=== PATIENT | male | born 1950 | race Caucasian/White ===

== ENCOUNTER 2023-03-25 18:05 | Inpatient (IN) | payer MEDICARE, SELFPAY ==
[2023-03-25] VITALS (12 sets, daily range): BP systolic 115–175; BP diastolic 69–91; PULSE 84–127; RESP 16–28; TEMP 37.1–39.1; O2SAT 96–100; BMI 21.7; BMI 22.8
--- NOTE | 2023-03-25 18:24 | ECG_ITS ---
The [facility] Test Date: 2023-03-25 Pat Name: Farhan Naidu Department: Room: - Gender: Male Gambling Monitor: : 1950 Requested By: SUE JONES Order Number: [id number] Reading MD: REMINGTON MONAHAN Measurements Intervals [place] Rate: 117 P: 90 NV: 148 QRS: 81 QRSD: 78 T: 79 QT: 304 QTc: 374 Interpretive Statements 1108 Marked sinus arrhythmia 1120 Sinus tachycardia 4068 Nonspecific Twave abnormality 9140 abnormal rhythm ECG No previous ECG available for comparison Electronically Signed On 03-26-2023 5:42:35 EDT by REMINGTON MONAHAN
--- NOTE | 2023-03-25 18:36 | XR_ITS ---
[address] [address] Patient Name: ARISTIDES LASSITER MRN: [id number] date: 1950 Sex: M Assigned Patient Location: ER Current Patient Location: ER Accession/Order Number: [id number] Exam Date: 03/25/2023 18:35 Report Date: 03/25/2023 19:37 At the request of: TAWANDA GIANG Procedure: XR chest 1V EXAM: XR chest 1V HISTORY: sob COMPARISON: 10/21/2022 TECHNIQUE: Frontal view of the chest. FINDINGS: The lungs are hyperinflated compatible with COPD. The medial lung apices are excluded by the patient's chin. No focal consolidations or pleural effusions. Cardiac mediastinal silhouette is unremarkable. Thoracic spine spondylosis. IMPRESSION: No acute disease. COPD. Electronically authenticated by: MIC ESTEVEZ Date: 03/25/2023 19:37
--- NOTE | 2023-03-25 18:39 | XR_ITS ---
The [place] [address] Patient Name: ARISTIDES LASSITER MRN: [id number] date: 1950 Sex: M Assigned Patient Location: ER Current Patient Location: ER Accession/Order Number: [id number] Exam Date: 03/25/2023 18:35 Report Date: 03/25/2023 19:53 At the request of: TAWANDA GIANG Procedure: XR hand LT min 3V STUDY: XR hand LT min 3V, [id number] HISTORY: cat bite COMPARISON: None FINDINGS/IMPRESSION: Periarticular osseous erosive changes involving the ulnar aspect of the triquetrum as well as the heads of the first and third metacarpal. Differential includes rheumatoid arthritis, gout, and less likely multifocal septic arthritis/osteomyelitis. Small radiopaque foreign body in the soft tissues of the distal thumb. No acute fracture or dislocation. Electronically authenticated by: VIOLA ART Date: 03/25/2023 19:53
[2023-03-25] MEDS: IPRATROPIUM/ALBUTEROL SULFATE 3 ML AMPUL.NEB IH (18:53)
[2023-03-25] MEDS: 0.9 % SODIUM CHLORIDE 1,000 ML 999 ML IV (19:02)
[2023-03-25] MEDS: VANCOMYCIN HCL 1,000 MG in 0.9 % SODIUM CHLORIDE 250 ML 250 MG IV (19:03)
[2023-03-25 19:06] LABS: Basophils Percent Auto 0.3 % (0.2-2.0); Hematocrit 37.6 % (42.0-54.0); Hemoglobin 13.2 g/dL (14.0-18.0); Immature Granulocytes Abs Auto 0.01 10^3/uL (0.00-0.03); Immature Granulocytes Pct Auto 0.3 % (0.0-0.5); Lymphocytes Absolute Auto 0.2 10^3/uL (1.2-3.8); Lymphocytes Percent Auto 4.5 % (20.5-60.0); Mean Corpuscular HGB Conc 35.1 g/dL (29.9-35.2); Mean Corpuscular Hemoglobin 31.8 pg (25.9-34.0); Mean Corpuscular Volume 90.6 fL (80.0-94.0); Mean Platelet Volume 9.3 fL (9.5-13.5); Monocytes Percent Auto 0.6 % (1.7-12.0); Neutrophils Absolute Auto 3.3 10^3/uL (1.4-6.5); Neutrophils Percent Auto 94.3 % (43.0-75.0); Platelet Count 290 10^3/uL (150-450); Red Blood Count 4.15 10^6/uL (4.70-6.10); Red Cell Distribution Width 12.7 % (11.0-15.0); White Blood Count 3.5 10^3/uL (4.0-11.0)
[2023-03-25] MEDS: CLINDAMYCIN PHOSPHATE/D5W 900 MG/50 ML PIGGYBACK IV (19:09)
[2023-03-25 19:33] LABS: Alanine Aminotransferase 37 U/L (16-63); Albumin Globulin Ratio 0.9; Albumin Level 3.3 g/dL (3.4-5.0); Alkaline Phosphatase 81 U/L (46-116); Anion Gap 18.1; Aspartate Amino Transferase 43 U/L (15-37); BUN Creatinine Ratio 25.4; Bilirubin Total 0.9 mg/dL (0.2-1.0); Calcium 8.7 mg/dL (8.5-10.1); Carbon Dioxide 19.9 mmol/L (21.0-32.0); Chloride 104 mmol/L (98-107); Estimated GFR (African America >60 (>=60); Estimated GFR (Non-African Ame 58 (>=60); Globulin 3.8 g/dL; Glucose 97 mg/dL (74-106); Sodium 138 mmol/L (136-145); Total Protein 7.1 g/dL (6.4-8.2)
[2023-03-25 19:43] LABS: INR 1.04; Partial Thromboplastin Time 25.6 sec (22.3-36.2)
[2023-03-25] MEDS: WATER FOR IRRIGATION, STERILE 1,000 ML IRRIG.SOLN 1000 ML IRR (20:04)
[2023-03-25] MEDS: ACETAMINOPHEN 500 MG TABLET 1000 MG PO (20:04)
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
[2023-03-25 20:24] LABS: Lactate/Lactic Acid 1.5 mmol/L (0.4-2.0)
--- NOTE | 2023-03-25 20:43 | PC.NURSE ---
contacted pt's pharmacy and they were unable to verify if pt was taking his prescribed BP med, pt does not know this information
--- NOTE | 2023-03-25 21:21 | NUTR.NU ---
updated pt's cousin on phone re plan to admit, will send family phone numbers up with pt on admission
--- NOTE | 2023-03-25 21:44 | PC.NURSE ---
vitals updatedand pt belongings placed in pt belonging bag for admission
--- NOTE | 2023-03-25 22:32 | PC.NURSE ---
report complete with JENNA Kan on [place], pt transported with tele monitor and O2
--- NOTE | 2023-03-25 22:33 | W.PC.EDHO ---
Primary Language: Preferred Language: Description of Symptoms ED Triage Date of Onset of this AM Symptoms Sel[place] Coma Scale Selma coma scale total score 15 Triage Comment ED Triage Comment For the last couple hours pt has had increased SOB and weakness. States cleaned the house and fed the dogs and now tired and weak. Pt also got attacked by a cat yesterday on left hand and pt has dried blood noted with cat hair dried in wound and swelling. Pain Pain Description [Left Hand] Tightness,With Movement Pain Scale [Left Hand] 8 Pain Scale Used [Left Hand] Numeric (1 - 10) Pain Site Observation [Left area cleansed with hibi cleanse and saline with Hand] dressing on site Pain Frequency [Left Hand] Frequent IV Insertion/Site Date of IV Line Insertion [ 03/25/23 Single Lumen Right Forearm] IV Catheter Type [Single Lumen Saline Lock Right Forearm] IV Catheter Type [Single Lumen Saline Lock Left Antecubital] IV Catheter Gauge [Single 20 Lumen Right Forearm] IV Catheter Gauge [Single 20 Lumen Left Antecubital] Oxygen Administration Pulse Oximetry 97 Pulse Oximetry 96 Pulse Oximetry 97 Pulse Oximetry 97 Pulse Oximetry 97 Pulse Oximetry 99 Pulse Oximetry 99 Pulse Oximetry 100 Pulse Oximetry 98 Pulse Oximetry 100 Oxygen Delivery Method Nasal Cannula Oxygen Delivery Method Nasal Cannula Oxygen Delivery Method Room Air Oxygen Delivery Method Nasal Cannula Oxygen Delivery Method Nasal Cannula Oxygen Delivery Method Nasal Cannula Oxygen Delivery Method Nasal Cannula Oxygen Delivery Method Nasal Cannula Oxygen Delivery Method Nasal Cannula Oxygen Delivery Flow Rate 4 Oxygen Delivery Flow Rate 4 Oxygen Delivery Flow Rate 4 Oxygen Delivery Flow Rate 4 Oxygen Delivery Flow Rate 4 Oxygen Delivery Flow Rate 2 Oxygen Delivery Flow Rate 4 Oxygen Delivery Flow Rate 4 Oxygen Delivery Flow Rate 4 Oxygen Delivery Flow Rate 4 Cardiac Monitoring ECG Method 12 Lead
[2023-03-26] VITALS (22 sets, daily range): BP systolic 100–139; BP diastolic 54–69; PULSE 64–81; RESP 18–20; TEMP 36.2–36.8; O2SAT 93–100
--- NOTE | 2023-03-26 02:25 | CT_ITS ---
The [address] [address] Patient Name: ARISTIDES LASSITER MRN: [id number] date: 1950 Sex: M Assigned Patient Location: [place] Current Patient Location: [place] Accession/Order Number: [id number] Exam Date: 03/26/2023 08:15 Report Date: 03/26/2023 09:18 At the request of: TIERNEY IBARRA Procedure: CT hand LT wo/w con EXAMINATION: CT hand LT wo/w con HISTORY: left hand cat bite, foreign body ?, osteo ? COMPARISON: XR hand left 04/06/2023 TECHNIQUE: After obtaining the patient's consent, multi-planar CT images were created without and with non-ionic intravenous contrast material. Dose reduction techniques were achieved by using automated exposure control and/or adjustment of mA and/or kV according to patient size and/or use of iterative reconstruction technique. FINDINGS: BONES: Sclerotic and erosive degenerative changes involving the first, second, and third metatarsophalangeal joints, greatest involving the third digit where there is also anterior subluxation of the proximal phalanx in relation to the metacarpal head. SOFT TISSUES: Increased density and soft tissue swelling surrounding the second third metatarsophalangeal joints. EFFUSION: None visible. OTHER: Negative. IMPRESSION: 1. Findings may represent advanced osteoarthritic and inflammatory changes surrounding the first, second, and third metacarpophalangeal joints, greatest involving the third digit. However, given patient's history, infectious etiology such as cellulitis and osteomyelitis is favored. Electronically authenticated by: YEHUDA VARGAS Date: 03/26/2023 09:18
--- NOTE | 2023-03-26 02:29 | P.PN_ITS ---
Progress Note: Subjective Subjective Interval history: chief complaint: Fevers, left wrist cat bite wound HPI: 72-year-old male with history of COPD on oxygen, who presents with above chief complaint. He states yesterday his cat bit dorsum of left breast and today started developed fevers. He reports small wound with redness, pain and warmth. Reports range of motion of fingers is slightly limited due to pain. Otherwise denies any rigors, confusion, hand trauma, chest pain, abdominal pain, change in bowel urinary habits, denies tingling in his wrist. Upon arrival to the ER x-rays were obtained and pending, per ER staff that was now suggestion of deep infection. He received IV antibiotics hospital Medicine was consulted. Review of systems: All 14 review of systems negative except for HPI past medical history: COPD past surgical history: None per patient allergies: Penicillin (unknown) home medications: Reviewed and in chart social history: Denies alcohol, tobacco illicit drug use. Lives by himself independent physical exam: Vital stable see chart general: Lying in bed, no acute distress, alert and oriented to x3 HEENT: Normocephalic, atraumatic, EOMI, trachea midline CVS: Regular rate and rhythm, no edema lungs: Normal respiratory effort, bilateral air entry abdomen: Soft, nontender, no visible masses neuro: No focal deficits skin: Left breast swollen, warm and tender. Range of motion of digits somewhat limited due to swelling and pain psych: Normal affect Exam Constitutional Vital Signs - 24 hr 03/25/23 18:11 03/25/23 19:13 03/25/23 19:14 Temperature 102.3 F H Pulse Rate Pulse Rate [Monitor] 127 H 126 H Respiratory Rate 28 H 24 Blood Pressure Blood Pressure [Right Arm] 165/83 H 175/91 H Pulse Oximetry 100 99 99 Oxygen Delivery Method Nasal Cannula Nasal Cannula Nasal Cannula Oxygen Delivery Flow Rate 4 4 2 03/25/23 18:53 03/25/23 19:03 03/25/23 20:17 Temperature Pulse Rate Pulse Rate [Monitor] 115 H 118 H 120 H Respiratory Rate 26 H 28 H 26 H Blood Pressure Blood Pressure [Right Arm] 156/88 H Pulse Oximetry 98 100 97 Oxygen Delivery Method Nasal Cannula Nasal Cannula Nasal Cannula Oxygen Delivery Flow Rate 4 4 4 03/25/23 20:18 03/25/23 20:20 03/25/23 21:03 Temperature 98.7 F Pulse Rate 120 H Pulse Rate [Monitor] 102 H Respiratory Rate 28 H Blood Pressure 156/88 H Blood Pressure [Right Arm] 131/72 H Pulse Oximetry 97 97 96 Oxygen Delivery Method Room Air Nasal Cannula Oxygen Delivery Flow Rate 4 4 4 03/25/23 21:43 03/25/23 22:16 03/25/23 22:14 Temperature Pulse Rate 86 Pulse Rate [Monitor] 97 H Respiratory Rate 16 Blood Pressure Blood Pressure [Right Arm] 115/69 Pulse Oximetry 97 Oxygen Delivery Method Nasal Cannula Nasal Cannula Oxygen Delivery Flow Rate 4 4 03/25/23 22:14 03/26/23 00:00 03/26/23 02:00 Temperature 98.7 F Pulse Rate 84 81 74 Pulse Rate [Monitor] Respiratory Rate 20 Blood Pressure Blood Pressure [Right Arm] 117/69 Pulse Oximetry 97 Oxygen Delivery Method Oxygen Delivery Flow Rate 4 Progress Note: Objective Labs Labs: Short CBC 03/25/23 Range/Units 18:35 WBC 3.5 L (4.0-11.0) 10^3/uL Hgb 13.2 L (14.0-18.0) g/dL Hct 37.6 L (42.0-54.0) % Plt Count 290 (150-450) 10^3/uL BMP 03/25/23 18:35 Sodium 138 Potassium 4.0 Chloride 104 Carbon Dioxide 19.9 L BUN 31.0 H Creatinine 1.22 Glucose 97 Calcium 8.7 Liver Function 03/25/23 Range/Units 18:35 Total Bilirubin 0.9 (0.2-1.0) mg/dL AST 43 H (15-37) U/L ALT 37 (16-63) U/L Alkaline Phosphatase 81 (46-116) U/L Albumin 3.3 L (3.4-5.0) g/dL Progress Note: A&P Assessment and Plan (1) Bite by animal: Assessment and Plan: start IV Levaquin and clindamycin given penicillin allergy. Simone site of erythema, keep upper extremity elevated. Consult surgery. Check CT scan check blood cultures for any fevers (2) Cat bite: Assessment and Plan: management per above, wound care (3) Acute exacerbation of chronic obstructive pulmonary disease: Assessment and Plan: no wheezing on exam, normal respiratory effort, denies any worsening cough from baseline. Bronchodilators as needed, to start steroids for any bronch ospasm/wheezing resume home 4 L oxygen (4) Cellulitis of hand, left: Plan telemedicine clause: DVT prophylaxis-Lovenox medication review -medication reconciliation form completed goals of care-full code communications: Discussed with emergency room physician, bedside nurse, patient updated of plan of care, all questions answered to their satisfaction. Disposition -home when medically stable telemedicine clause: as a provider of this telehealth evaluation, requested by the patient's evaluating physician, I attest that I introduced myself to the patient, provided my credentials and determined that is telemedicine via a real-time 2 way interactive audio and video platform is an appropriate and effective means of providing this service. I reviewed the patient's chart and had a discussion with the member of the patient's treatment team. The patient and I mutually agreed with continuation of this evaluation via telemedicine. The patient consented for the telemedicine evaluation. This virtual encounter was taking place from [place]. The encounter was approximately 30 minutes. The nurse was present during the entire time of encounter was able to move the stethoscope and appropriate directions. The patient was evaluated at 0020 Telemedicine Attestation Telemedicine Attestation I conducted this encounter from [ [place]] via secure live, [id number] video conference with the patient, CHARGE TEST-CHARGES located at [facility]. Prior to the interview, the risks and benefits of telemedicine were discussed with the patient and verbal consent was obtained.
[2023-03-26] MEDS: CLINDAMYCIN PHOSPHATE/D5W 300 MG/50 ML PIGGYBACK 100 MG IV (02:45)
[2023-03-26] MEDS: LACTATED RINGER'S SOLUTION 1,000 ML 125 ML IV ×3 (02:57→23:17)
[2023-03-26] MEDS: ENOXAPARIN SODIUM 40 MG/0.4 ML SYRINGE SUBQ (02:58)
[2023-03-26] MEDS: IPRATROPIUM/ALBUTEROL SULFATE 3 ML AMPUL.NEB IH ×4 (04:11→20:53)
--- NOTE | 2023-03-26 04:27 | RESP.RT ---
SPO2 100% on 4L, decreased down to 3L
[2023-03-26 05:18] LABS: C Reactive Protein 11.2 mg/dL (<=1.0)
[2023-03-26 05:24] LABS: Erythrocyte Sedimentation Rate 23 mm/hr (<=20)
[2023-03-26] MEDS: LEVOFLOXACIN IN DEXTROSE 5 % 500 MG/100 ML PIGGYBACK 100 MG IV (05:41)
[2023-03-26] MEDS: ATORVASTATIN CALCIUM 10 MG TABLET PO (08:51)
--- NOTE | 2023-03-26 09:28 | P.HP_ITS ---
H&P: HPI History of Present Illness Chief complaint: diff breathing Narrative: Patient presented to the emergency room with increasing swelling of his hand, his animals a Dog got in an altercation and he the 2 and got bit by the cat. Has had fairly rapid swelling over the last 24 hours. Fevers at home. Presented to the emergency room and is admitted for work-up and treatment of same [facility] Medical History (Updated 03/25/23 @ 22:48 by Loreta Mcbride) Surgical History (Updated 03/25/23 @ 22:48 by Loreta Mcbride) Social History (Updated 03/25/23 @ 22:49 by Loreta Mcbride) Smoking status: Former smoker Non-prescribed substance use: denies use Previous occupational history: none Highest level of school completed/degree received: 11th grade Are you now , , , , never or living with a partner: refused to answer In a typical week, how many times do you talk on the telephone with family, friends, or neighbors: 3 or more times per week How often do you get together with friends or relatives: 3 or more times per week How often do you attend taoism or taoist services: 4 or more times per year Do you belong to any clubs or organizations such as taoism groups unions, fraternal or athletic groups, or school groups: no Total score: 2 Score interpretation: A score of greater than or equal to 2 indicates the lowest level of social isolation. Little interest or pleasure in doing things: not at all Feeling down, depressed, or hopeless: not at all Feel stressed/tense/nervous/anxious/difficulty sleeping: not at all Due to disability, difficulty making decisions: No Do you think of yourself as: straight/heterosexual Gender Identity: male Meds Home Medications and Allergies Home Medications Medication Instructions Recorded Confirmed Type albuterol sulfate 2.5 mg/3 mL 2.5 mg continuous nebulization 03/25/23 03/25/23 History (0.083 %) solution for nebulization DAILY PRN shortness of breath or wheezing atorvastatin 10 mg tablet 10 mg PO DAILY 03/25/23 03/25/23 History bicalutamide 50 mg tablet 50 mg PO DAILY 03/25/23 03/25/23 History umeclidinium 62.5 mcg-vilanterol 1 inh inhalation DAILY PRN sob 03/25/23 03/25/23 History 25 mcg/actuation powdr for inhalation (Anoro Ellipta) Allergies Allergy/AdvReac Type Severity Reaction Status Date / Time Penicillins Allergy Severe Verified 03/25/23 18:25 Exam Constitutional Vital Signs - 24 hr 03/25/23 18:11 03/25/23 19:13 03/25/23 19:14 Temperature 102.3 F H Pulse Rate Pulse Rate [Monitor] 127 H 126 H Respiratory Rate 28 H 24 Blood Pressure Blood Pressure [Right Arm] 165/83 H 175/91 H Pulse Oximetry 100 99 99 Oxygen Delivery Method Nasal Cannula Nasal Cannula Nasal Cannula Oxygen Delivery Flow Rate 4 4 2 03/25/23 18:53 03/25/23 19:03 03/25/23 20:17 Temperature Pulse Rate Pulse Rate [Monitor] 115 H 118 H 120 H Respiratory Rate 26 H 28 H 26 H Blood Pressure Blood Pressure [Right Arm] 156/88 H Pulse Oximetry 98 100 97 Oxygen Delivery Method Nasal Cannula Nasal Cannula Nasal Cannula Oxygen Delivery Flow Rate 4 4 4 03/25/23 20:18 03/25/23 20:20 03/25/23 21:03 Temperature 98.7 F Pulse Rate 120 H Pulse Rate [Monitor] 102 H Respiratory Rate 28 H Blood Pressure 156/88 H Blood Pressure [Right Arm] 131/72 H Pulse Oximetry 97 97 96 Oxygen Delivery Method Room Air Nasal Cannula Oxygen Delivery Flow Rate 4 4 4 03/25/23 21:43 03/25/23 22:16 03/25/23 22:14 Temperature Pulse Rate 86 Pulse Rate [Monitor] 97 H Respiratory Rate 16 Blood Pressure Blood Pressure [Right Arm] 115/69 Pulse Oximetry 97 Oxygen Delivery Method Nasal Cannula Nasal Cannula Oxygen Delivery Flow Rate 4 4 03/25/23 22:14 03/26/23 00:00 03/26/23 02:00 Temperature 98.7 F Pulse Rate 84 81 74 Pulse Rate [Monitor] Respiratory Rate 20 Blood Pressure Blood Pressure [Right Arm] 117/69 Pulse Oximetry 97 Oxygen Delivery Method Oxygen Delivery Flow Rate 4 03/26/23 04:00 03/26/23 04:25 03/26/23 04:11 Temperature Pulse Rate 64 71 68 Pulse Rate [Monitor] Respiratory Rate 18 18 Blood Pressure Blood Pressure [Right Arm] Pulse Oximetry 98 100 Oxygen Delivery Method Nasal Cannula Nasal Cannula Oxygen Delivery Flow Rate 3 4 03/26/23 04:11 03/26/23 06:00 03/26/23 06:32 Temperature 98.2 F Pulse Rate 66 73 Pulse Rate [Monitor] Respiratory Rate 18 Blood Pressure Blood Pressure [Right Arm] 100/54 L Pulse Oximetry 100 98 Oxygen Delivery Method Nasal Cannula Nasal Cannula Oxygen Delivery Flow Rate 4 3 03/26/23 07:50 03/26/23 08:08 Temperature Pulse Rate 70 Pulse Rate [Monitor] Respiratory Rate 18 Blood Pressure Blood Pressure [Right Arm] Pulse Oximetry Oxygen Delivery Method Oxygen Delivery Flow Rate Common normals: no apparent distress HENMT Common normals: normocephalic (Difficult the understanding speech pattern) Lymph Lymphatic: no lymphadenopathy noted Respiratory Common normals: normal respiratory effort, no retractions, no use of accessory muscles and clear to auscultation bilaterally Cardio Common normals: no JVD, regular rate and regular rhythm GI Common normals: Normal to inspection, nondistended, normoactive bowel sounds present Extremity Common normals: abnormal to inspection (Significant left hand swelling, and erythema, exquisitely tender,) Results Labs Labs: Short CBC 03/25/23 Range/Units 18:35 WBC 3.5 L (4.0-11.0) 10^3/uL Hgb 13.2 L (14.0-18.0) g/dL Hct 37.6 L (42.0-54.0) % Plt Count 290 (150-450) 10^3/uL BMP 03/25/23 18:35 Sodium 138 Potassium 4.0 Chloride 104 Carbon Dioxide 19.9 L BUN 31.0 H Creatinine 1.22 Glucose 97 Calcium 8.7 Liver Function 03/25/23 Range/Units 18:35 Total Bilirubin 0.9 (0.2-1.0) mg/dL AST 43 H (15-37) U/L ALT 37 (16-63) U/L Alkaline Phosphatase 81 (46-116) U/L Albumin 3.3 L (3.4-5.0) g/dL Assessment and Plan Assessment and Plan (1) Bite by animal: (2) Cat bite: (3) Acute exacerbation of chronic obstructive pulmonary disease: (4) Cellulitis of hand, left: Plan Cat bite with significant cellulitis, CT scan suggest possible osteomyelitis, will treat patient aggressively, check allergy to penicillin, that may be preferable to the Levaquin and clindamycin that he was started on,-this may be complicated by mild neutropenia. We will monitor daily Mild neutropenia-monitor daily [id number] from admission. Iron deficiency anemia monitor daily Possible chronic kidney disease-we will track down old records With concerns for osteomyelitisPatient will require over 48 hours of intensive medical treatment. Change patient to inpatient status
--- NOTE | 2023-03-26 10:11 | SWNOTE1 ---
FRANKIE spoke with case management in regards to pt and his needs. Pt does have an [employer] oxygen portable in his room. Pt has voiced they have taken his oxygen tanks from his home and he needs new scripts for everything. SW attempted to call [employer] to see when and who prescribed the inogen portable. Pt also voiced concerns about his dogs and let us know to call So or Opal. SW called So and she is familiar with pt and she is his first cousin. She will be the one picking him up at discharge. She does know that he does not have tanks at home for oxygen and that he has the inogen, but not sure who PCP is and who prescribed it. SW updated her on medical condition and also she informed SW to call [facility] in regards to pt's dogs at home. SW called Opal, spoke with her , and they are caring for his dogs. SW to call [facility] later this morning as there customer service number was down.
--- NOTE | 2023-03-26 10:13 | CM.NOTE ---
Rounds made with Dr. Lemus. Consults made to Wound and General Surgery. No plan for discharge today. Currently Mr. Naidu lives alone and uses no assistive devices. He does have chronic oxygen at 4L/NC through [employer].
--- NOTE | 2023-03-26 11:05 | RESP.RT ---
SpO2 99% on 4L NC decreased to 3 LPM
--- NOTE | 2023-03-26 11:08 | P.GSCN_ITS ---
History of Present Illness Consult details Narrative: patient is a 72-year-old male who is seen today for evaluation of a cat bite of his left hand. He presented to the emergency department yesterday with complaints of pain and swelling of his left hand as well as apparent some shortness of breath. He was noted to have a swelling and erythema of the dorsum of his left hand. Plain films of the left hand were relatively unremarkable. He was admitted and placed on IV antibiotics per menses clindamycin). History is somewhat difficult as the patient's is essentially deaf although apparently does read lips. CT of the left hand revealed notable significant soft tissue swelling. There were no fluid collections. There appears to be chronic bone changes. Review of Systems ROS Status of ROS unobtainable due to mental status [facility] Medical History (Updated 03/25/23 @ 22:48 by Loreta Mcbride) Surgical History (Updated 03/25/23 @ 22:48 by Loreta Mcbride) Social History (Updated 03/25/23 @ 22:49 by Loreta Mcbride) Smoking status: Former smoker Non-prescribed substance use: denies use Previous occupational history: none Highest level of school completed/degree received: 11th grade Are you now , , , , never or living with a partner: refused to answer In a typical week, how many times do you talk on the telephone with family, friends, or neighbors: 3 or more times per week How often do you get together with friends or relatives: 3 or more times per week How often do you attend mormon or islam services: 4 or more times per year Do you belong to any clubs or organizations such as mormon groups unions, fraternal or athletic groups, or school groups: no Total score: 2 Score interpretation: A score of greater than or equal to 2 indicates the lowest level of social isolation. Little interest or pleasure in doing things: not at all Feeling down, depressed, or hopeless: not at all Feel stressed/tense/nervous/anxious/difficulty sleeping: not at all Due to disability, difficulty making decisions: No Do you think of yourself as: straight/heterosexual Gender Identity: male Meds Home Medications and Allergies Home Medications Medication Instructions Recorded Confirmed Type albuterol sulfate 2.5 mg/3 mL 2.5 mg continuous nebulization 03/25/23 03/25/23 History (0.083 %) solution for nebulization DAILY PRN shortness of breath or wheezing atorvastatin 10 mg tablet 10 mg PO DAILY 03/25/23 03/25/23 History bicalutamide 50 mg tablet 50 mg PO DAILY 03/25/23 03/25/23 History umeclidinium 62.5 mcg-vilanterol 1 inh inhalation DAILY PRN sob 03/25/23 03/25/23 History 25 mcg/actuation powdr for inhalation (Anoro Ellipta) Allergies Allergy/AdvReac Type Severity Reaction Status Date / Time Penicillins Allergy Severe Verified 03/25/23 18:25 Exam Narrative Exam Narrative: patient is awake and alert. The left hand is examined. There is significant soft tissue swelling mostly at the 2nd 3rd MP joints. There are a few small lac erations without purulence. There is notable tenderness. He is neurovascularly intact. Constitutional Vital Signs - 24 hr 03/25/23 18:11 03/25/23 19:13 03/25/23 19:14 Temperature 102.3 F H Pulse Rate Pulse Rate [Monitor] 127 H 126 H Respiratory Rate 28 H 24 Blood Pressure Blood Pressure [Right Arm] 165/83 H 175/91 H Pulse Oximetry 100 99 99 Oxygen Delivery Method Nasal Cannula Nasal Cannula Nasal Cannula Oxygen Delivery Flow Rate 4 4 2 03/25/23 18:53 03/25/23 19:03 03/25/23 20:17 Temperature Pulse Rate Pulse Rate [Monitor] 115 H 118 H 120 H Respiratory Rate 26 H 28 H 26 H Blood Pressure Blood Pressure [Right Arm] 156/88 H Pulse Oximetry 98 100 97 Oxygen Delivery Method Nasal Cannula Nasal Cannula Nasal Cannula Oxygen Delivery Flow Rate 4 4 4 03/25/23 20:18 03/25/23 20:20 03/25/23 21:03 Temperature 98.7 F Pulse Rate 120 H Pulse Rate [Monitor] 102 H Respiratory Rate 28 H Blood Pressure 156/88 H Blood Pressure [Right Arm] 131/72 H Pulse Oximetry 97 97 96 Oxygen Delivery Method Room Air Nasal Cannula Oxygen Delivery Flow Rate 4 4 4 03/25/23 21:43 03/25/23 22:16 03/25/23 22:14 Temperature Pulse Rate 86 Pulse Rate [Monitor] 97 H Respiratory Rate 16 Blood Pressure Blood Pressure [Right Arm] 115/69 Pulse Oximetry 97 Oxygen Delivery Method Nasal Cannula Nasal Cannula Oxygen Delivery Flow Rate 4 4 06/08/23 22:14 03/26/23 00:00 03/26/23 02:00 Temperature 98.7 F Pulse Rate 84 81 74 Pulse Rate [Monitor] Respiratory Rate 20 Blood Pressure Blood Pressure [Right Arm] 117/69 Pulse Oximetry 97 Oxygen Delivery Method Oxygen Delivery Flow Rate 4 03/26/23 04:00 03/26/23 04:25 03/26/23 04:11 Temperature Pulse Rate 64 71 68 Pulse Rate [Monitor] Respiratory Rate 18 18 Blood Pressure Blood Pressure [Right Arm] Pulse Oximetry 98 100 Oxygen Delivery Method Nasal Cannula Nasal Cannula Oxygen Delivery Flow Rate 3 4 03/26/23 04:11 03/26/23 06:00 03/26/23 06:32 Temperature 98.2 F Pulse Rate 66 73 Pulse Rate [Monitor] Respiratory Rate 18 Blood Pressure Blood Pressure [Right Arm] 100/54 L Pulse Oximetry 100 98 Oxygen Delivery Method Nasal Cannula Nasal Cannula Oxygen Delivery Flow Rate 4 3 03/26/23 07:50 03/26/23 08:08 03/26/23 09:53 Temperature Pulse Rate 70 64 Pulse Rate [Monitor] Respiratory Rate 18 Blood Pressure Blood Pressure [Right Arm] Pulse Oximetry Oxygen Delivery Method Oxygen Delivery Flow Rate 03/26/23 11:04 Temperature Pulse Rate Pulse Rate [Monitor] Respiratory Rate Blood Pressure Blood Pressure [Right Arm] Pulse Oximetry 99 Oxygen Delivery Method Nasal Cannula Oxygen Delivery Flow Rate 4 Results Labs Labs: Abnormal lab results 03/25/23 03/26/23 Range/Units 18:35 04:15 WBC 3.5 L (4.0-11.0) 10^3/uL RBC 4.15 L (4.70-6.10) 10^6/uL Hgb 13.2 L (14.0-18.0) g/dL Hct 37.6 L (42.0-54.0) % MPV 9.3 L (9.5-13.5) fL Neut % (Auto) 94.3 H (43.0-75.0) % Lymph % (Auto) 4.5 L (20.5-60.0) % [place] % (Auto) 0.6 L (1.7-12.0) % Eos % (Auto) 0.0 L (0.9-7.0) % Lymph # (Auto) 0.2 L (1.2-3.8) 10^3/uL [place] # (Auto) 0.0 L (0.3-0.8) 10^3/uL ESR 23 H (<=20) mm/hr Carbon Dioxide 19.9 L (21.0-32.0) mmol/L BUN 31.0 H (7.0-18.0) mg/dL Est GFR (Non-Af Amer) 58 L (>=60) AST 43 H (15-37) U/L C-Reactive Protein 11.2 H (<=1.0) mg/dL Albumin 3.3 L (3.4-5.0) g/dL Diabetes panel 03/25/23 Range/Units 18:35 Sodium 138 (136-145) mmol/L Potassium 4.0 (3.5-5.1) mmol/L Chloride 104 (98-107) mmol/L Carbon Dioxide 19.9 L (21.0-32.0) mmol/L BUN 31.0 H (7.0-18.0) mg/dL Creatinine 1.22 (0.70-1.30) mg/dL Glucose 97 (74-106) mg/dL Calcium 8.7 (8.5-10.1) mg/dL AST 43 H (15-37) U/L ALT 37 (16-63) U/L Alkaline Phosphatase 81 (46-116) U/L Total Protein 7.1 (6.4-8.2) g/dL Albumin 3.3 L (3.4-5.0) g/dL Calcium panel 03/25/23 Range/Units 18:35 Calcium 8.7 (8.5-10.1) mg/dL Albumin 3.3 L (3.4-5.0) g/dL Pituitary panel 03/25/23 Range/Units 18:35 Sodium 138 (136-145) mmol/L Potassium 4.0 (3.5-5.1) mmol/L Chloride 104 (98-107) mmol/L Carbon Dioxide 19.9 L (21.0-32.0) mmol/L BUN 31.0 H (7.0-18.0) mg/dL Creatinine 1.22 (0.70-1.30) mg/dL Glucose 97 (74-106) mg/dL Calcium 8.7 (8.5-10.1) mg/dL Adrenal panel 03/25/23 Range/Units 18:35 Sodium 138 (136-145) mmol/L Potassium 4.0 (3.5-5.1) mmol/L Chloride 104 (98-107) mmol/L Carbon Dioxide 19.9 L (21.0-32.0) mmol/L BUN 31.0 H (7.0-18.0) mg/dL Creatinine 1.22 (0.70-1.30) mg/dL Glucose 97 (74-106) mg/dL Calcium 8.7 (8.5-10.1) mg/dL Total Bilirubin 0.9 (0.2-1.0) mg/dL AST 43 H (15-37) U/L ALT 37 (16-63) U/L Alkaline Phosphatase 81 (46-116) U/L Total Protein 7.1 (6.4-8.2) g/dL Albumin 3.3 L (3.4-5.0) g/dL All other labs normal. Assessment and Plan Assessment and Plan (1) Bite by animal: (2) Cat bite: (3) Acute exacerbation of chronic obstructive pulmonary disease: (4) Cellulitis of hand, left: Assessment and Plan: with the above findings patient should be continued on IV antibiotics although I would recommend broader coverage such as Zosyn. No specific wound care is needed at this time. Should patient's status regarding his left hand progress and worsen, transfer to a facility with orthopedics/plastic hand surgery would be recommended.
--- NOTE | 2023-03-26 11:30 | PM.GSPRC ---
Date of procedure: 03/26/23 Indications for Procedure: this patient is a 38-year-old female who was recently seen for episodes of right upper quaddrant pain. Gallbladder ultrasound revealed cholelithiasis. Robotic cholecystectomy was surgically recommended. The risks benefits options and potential indications of the procedure were discussed in detail with her and she agreed to proceed and consent was signed. Pre-op diagnosis: symptomatic cholelithiasis Post-op diagnosis: same Procedure: robotic cholecystectomy with ICG cholangiogram Surgeon: Sadi Thurman Estimated blood loss (mL): 2 Specimens: gallbladder Complications: No
--- NOTE | 2023-03-26 14:02 | SWNOTE1 ---
FRANKIE called Dr. London's office and Melchor and neither are PCP. FRANKIE reached out to Dr. Guerin and he is new to [facility] office. Pt went there in February. Dr. Alejandra did a walk test not long ago and he did not qualify. In order to get new oxygen he would have to be hypoxic, pt is NOT hypoxic as he has his [employer]. FRANKIE updated Dr. Lemus.
--- NOTE | 2023-03-26 16:05 | SWNOTE1 ---
FRANKIE met with pt to discuss dc needs. [employer] customer service number still not working. SW let pt know he will have to follow up with PCP in regards to his home oxygen, he voiced understanding and stated he is going to get on the doctor about it. 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 He has 2 [place] Dominic dogs at home. SW assured pt that his dogs are being cared for. Pt is independent. At this time pt has no needs as he has his [employer] portable at home and will follow up with PCP in regards to other modes of oxygen for at home. FRANKIE did review the IMM form with pt, he voiced understanding, pt did sign form. Original given to pt and copy placed on chart.
--- NOTE | 2023-03-26 16:31 | RESP.RT ---
98% on 2 L NC, titrated down to 1 LPM
--- NOTE | 2023-03-26 20:56 | RESP.RT ---
decreased to 1L
[2023-03-27] VITALS (8 sets, daily range): BP systolic 132; BP diastolic 76; PULSE 69–93; RESP 16–20; TEMP 36.6; O2SAT 91–97
[2023-03-27] MEDS: OMEPRAZOLE 20 MG CAPSULE.DR PO (00:14)
[2023-03-27] MEDS: ENOXAPARIN SODIUM 40 MG/0.4 ML SYRINGE SUBQ (00:14)
[2023-03-27] MEDS: IPRATROPIUM/ALBUTEROL SULFATE 3 ML AMPUL.NEB IH ×2 (04:00→10:45)
--- NOTE | 2023-03-27 05:31 | RESP.RT ---
patient taken off oxygen and on room air
[2023-03-27] MEDS: LEVOFLOXACIN IN DEXTROSE 5 % 500 MG/100 ML PIGGYBACK 100 MG IV (06:25)
[2023-03-27 06:32] LABS: Erythrocyte Sedimentation Rate 17 mm/hr (<=20)
[2023-03-27 06:48] LABS: Alanine Aminotransferase 68 U/L (16-63); Albumin Globulin Ratio 0.8; Albumin Level 2.4 g/dL (3.4-5.0); Alkaline Phosphatase 55 U/L (46-116); Anion Gap -0.9; Aspartate Amino Transferase 42 U/L (15-37); BUN Creatinine Ratio 19.1; Bilirubin Total 0.3 mg/dL (0.2-1.0); C Reactive Protein 8.5 mg/dL (<=1.0); Calcium 8.2 mg/dL (8.5-10.1); Carbon Dioxide 24.6 mmol/L (21.0-32.0); Chloride 119 mmol/L (98-107); Estimated GFR (African America >60 (>=60); Estimated GFR (Non-African Ame >60 (>=60); Globulin 3.1 g/dL; Glucose 114 mg/dL (74-106); Potassium 3.7 mmol/L (3.5-5.1); Sodium 139 mmol/L (136-145); Total Protein 5.5 g/dL (6.4-8.2)
[2023-03-27 07:12] LABS: Basophils Percent Auto 0.6 % (0.2-2.0); Eosinophils Absolute Auto 0.3 10^3/uL (0.0-0.7); Eosinophils Percent Auto 5.4 % (0.9-7.0); Hematocrit 33.3 % (42.0-54.0); Hemoglobin 11.3 g/dL (14.0-18.0); Immature Granulocytes Abs Auto 0.01 10^3/uL (0.00-0.03); Immature Granulocytes Pct Auto 0.2 % (0.0-0.5); Lymphocytes Absolute Auto 1.2 10^3/uL (1.2-3.8); Lymphocytes Percent Auto 25.2 % (20.5-60.0); Mean Corpuscular HGB Conc 33.9 g/dL (29.9-35.2); Mean Corpuscular Hemoglobin 31.2 pg (25.9-34.0); Mean Platelet Volume 10.2 fL (9.5-13.5); Monocytes Absolute Auto 0.6 10^3/uL (0.3-0.8); Monocytes Percent Auto 12.3 % (1.7-12.0); Neutrophils Absolute Auto 2.6 10^3/uL (1.4-6.5); Neutrophils Percent Auto 56.3 % (43.0-75.0); Platelet Count 248 10^3/uL (150-450); Red Blood Count 3.62 10^6/uL (4.70-6.10); Red Cell Distribution Width 13.1 % (11.0-15.0); White Blood Count 4.6 10^3/uL (4.0-11.0)
[2023-03-27] MEDS: LACTATED RINGER'S SOLUTION 1,000 ML 125 ML IV (08:27)
[2023-03-27] MEDS: ATORVASTATIN CALCIUM 10 MG TABLET PO (08:27)
--- NOTE | 2023-03-27 09:32 | PT.DAILY ---
Physical Therapy Daily Note PT Daily Note/Assess Start: 03/27/23 09:29 Freq: Status: Active Protocol: Document 03/27/23 09:05 ALVIN (Rec: 03/27/23 09:32 ALVIN [id number]) Physical Therapy Daily Note/Assessment Time In/Time Out Time In 09:05 Time Out 09:15 Pain In Pain N/A Pain Out Pain N/A Subjective Subjective Patient denies complaints, verbalizes ready to be DC. Agrees to PT Therapeutic Activity Time Therapeutic Activity Minutes (minutes) 10 Therapeutic Activity Units 1 Therapeutic Activity Treatment Chair Transfer Ability Independent Therapeutic Activity Comments Patient ambulates down candelario 120 feet with IV poll and supervision today. Denies feeling shaky, no LOB. Total Physical Therapy Time Total Therapy Minutes 10 Total Physical Therapy Units 1 Summary Daily Note Summary Patient shows improved ability with ambulation in halls today, increased distance with decreased assistance required . Anticipate no needs at DC.
--- NOTE | 2023-03-27 13:16 | P.GSPN_ITS ---
Progress Note: A&P Assessment and Plan (1) Bite by animal: (2) Cat bite: Assessment and Plan: patient with significant clinical improvement. From a surgical standpoint may be discharged on oral antibiotics. (3) Acute exacerbation of chronic obstructive pulmonary disease: (4) Cellulitis of hand, left: Subjective Subjective Interval history: Pt. feels much better today. Denies pain. Exam Narrative Exam Narrative: left hand is much less swollen today. The erythema has also resolved essenti ally. Small open wound is clean. Constitutional Vital Signs - 24 hr 03/26/23 14:01 03/26/23 14:00 03/26/23 16:11 Temperature 97.1 F L Pulse Rate 70 70 Respiratory Rate Blood Pressure [Right Arm] Pulse Oximetry Oxygen Delivery Method Oxygen Delivery Flow Rate 03/26/23 16:31 03/26/23 18:48 03/26/23 19:47 Temperature Pulse Rate 80 75 Respiratory Rate Blood Pressure [Right Arm] Pulse Oximetry 98 Oxygen Delivery Method Nasal Cannula Oxygen Delivery Flow Rate 03/26/23 20:53 03/26/23 20:53 03/26/23 21:29 Temperature 98 F Pulse Rate 71 75 Respiratory Rate 18 20 Blood Pressure [Right Arm] 139/69 H Pulse Oximetry 96 96 93 L Oxygen Delivery Method Nasal Cannula Nasal Cannula Nasal Cannula Oxygen Delivery Flow Rate 2 2 1 03/26/23 21:53 03/26/23 23:55 03/27/23 01:57 Temperature Pulse Rate 81 75 88 Respiratory Rate Blood Pressure [Right Arm] Pulse Oximetry Oxygen Delivery Method Oxygen Delivery Flow Rate 03/27/23 04:00 03/27/23 04:00 03/27/23 06:00 Temperature Pulse Rate 80 76 81 Respiratory Rate 16 Blood Pressure [Right Arm] Pulse Oximetry 97 Oxygen Delivery Method Nasal Cannula Oxygen Delivery Flow Rate 1 03/27/23 06:00 03/27/23 08:09 03/27/23 10:04 Temperature 97.8 F Pulse Rate 69 76 70 Respiratory Rate 18 Blood Pressure [Right Arm] 132/76 H Pulse Oximetry 91 L Oxygen Delivery Method Nasal Cannula Oxygen Delivery Flow Rate 1 03/27/23 10:50 03/27/23 11:52 Temperature Pulse Rate 72 79 Respiratory Rate 20 Blood Pressure [Right Arm] Pulse Oximetry 95 Oxygen Delivery Method Room Air Oxygen Delivery Flow Rate
--- NOTE | 2023-03-27 13:33 | P.DS_ITS ---
DS: Providers Provider Date of admission: 03/25/23 22:02 Primary care physician: SUE JONES Admitting clinician: Brennan Lemus Attending physician on admission: rBennan Lemus Consults: 03/26/23 Consult to General Surgeon Routine Consulting Provider: Sadi Thurman 03/26/23 06:54 Physical Therapy Eval and Treat Routine 03/26/23 09:31 Consult to Wound Care Routine Consulting Provider: Sadi Thurman Attending physician on discharge: Shaikh Melchor Discharging clinician: Shaikh Melchor Anticipated date of discharge: 03/27/23 DS: Diagnosis Discharge Diagnosis (1) Cat bite: Assessment and plan: Resulting in cellulitis/osteomyelitis of affected hand and was admitted for treatment for it. Qualifiers: Encounter type: sequela Qualified Code(s): W55.01XS - Bitten by cat, sequela (2) Acute exacerbation of chronic obstructive pulmonary disease: Assessment and plan: Mild COPD exacerbation on admission. Lungs clear on exam. No resp distress (3) Cellulitis of hand, left: Assessment and plan: On Clindamycin and Levaquin. Improving. Ok to discharge from Gen Surgery point of view (4) Hypertension: Assessment and plan: At goal. C/w home meds Qualifiers: Hypertension type: primary hypertension Qualified Code(s): I10 - Essential (primary) hypertension (5) Rheumatoid arthritis: Assessment and plan: Outpatient f/u with Rheum Qualifiers: Rheumatoid arthritis location: multiple sites Rheumatoid factor presence: with rheumatoid factor Qualified Code(s): M05.79 - Rheumatoid arthritis with rheumatoid factor of multiple sites without organ or systems involvement DS: Summary Hospital Course Hospital Course: Presented with pain, erythema, swelling of left hand along with fever and SOB after he had cat bite - was admitted for left hand cellulitis/osteomyelitis and mild COPD exacerbation. He was evaluated by General Surgery and cleared for discharge on oral abx. Patient was also treated for mild COPD exacerbation and had no resp symptoms today and no wheezing on exam Status at Discharge Functional status at discharge: independent ambulation Overall status at discharge: patient is back to baseline Time Spent with Patient Time attestation: Total time spent providing and/or coordinating discharge services: Time spent: greater than 30 minutes Exam Constitutional Vital Signs - 24 hr 03/26/23 14:01 03/26/23 14:00 03/26/23 16:11 Temperature 97.1 F L Pulse Rate 70 70 Respiratory Rate Blood Pressure [Right Arm] Pulse Oximetry Oxygen Delivery Method Oxygen Delivery Flow Rate 03/26/23 16:31 03/26/23 18:48 03/26/23 19:47 Temperature Pulse Rate 80 75 Respiratory Rate Blood Pressure [Right Arm] Pulse Oximetry 98 Oxygen Delivery Method Nasal Cannula Oxygen Delivery Flow Rate 03/26/23 20:53 03/26/23 20:53 03/26/23 21:29 Temperature 98 F Pulse Rate 71 75 Respiratory Rate 18 20 Blood Pressure [Right Arm] 139/69 H Pulse Oximetry 96 96 93 L Oxygen Delivery Method Nasal Cannula Nasal Cannula Nasal Cannula Oxygen Delivery Flow Rate 2 2 1 03/26/23 21:53 03/26/23 23:55 03/27/23 01:57 Temperature Pulse Rate 81 75 88 Respiratory Rate Blood Pressure [Right Arm] Pulse Oximetry Oxygen Delivery Method Oxygen Delivery Flow Rate 03/27/23 04:00 03/27/23 04:00 03/27/23 06:00 Temperature Pulse Rate 80 76 81 Respiratory Rate 16 Blood Pressure [Right Arm] Pulse Oximetry 97 Oxygen Delivery Method Nasal Cannula Oxygen Delivery Flow Rate 1 03/27/23 06:00 03/27/23 08:09 03/27/23 10:04 Temperature 97.8 F Pulse Rate 69 76 70 Respiratory Rate 18 Blood Pressure [Right Arm] 132/76 H Pulse Oximetry 91 L Oxygen Delivery Method Nasal Cannula Oxygen Delivery Flow Rate 1 03/27/23 10:50 03/27/23 11:52 Temperature Pulse Rate 72 79 Respiratory Rate 20 Blood Pressure [Right Arm] Pulse Oximetry 95 Oxygen Delivery Method Room Air Oxygen Delivery Flow Rate Documenting provider has reviewed patient's vital signs: yes Common normals: no apparent distress and average body habitus General appearance: cooperative and comfortable Orientation/consciousness: Yes awake, Yes oriented to person, Yes oriented to place and Yes oriented to time HENMT Common normals: normocephalic Eye Common normals: conjunctivae normal and no scleral icterus Respiratory Common normals: normal respiratory effort and clear to auscultation bilaterally Cardio Common normals: regular rhythm, S1 normal heart sound and S2 normal heart sound Rate: regular rate GI Common normals: Normal to inspection, nondistended, normoactive bowel sounds present Extremity Left upper extremity: hand and digits (Erythema/swelling around 4th/5th digit. Mild pain. Improved from before) Neuro Common normals: oriented x3, moves all extremities, no focal motor deficits and no sensory deficits noted Psych Common normals: mental status grossly normal, cooperative, denies homicidal ideation and denies suicidal ideation DS: Data Data Completed and Pending Labs on day of discharge: Labs from last 24 hours 03/27/23 05:00 WBC 4.6 RBC 3.62 L Hgb 11.3 L Hct 33.3 L MCV 92.0 MCH 31.2 MCHC 33.9 RDW 13.1 Plt Count 248 MPV 10.2 Neut % (Auto) 56.3 Lymph % (Auto) 25.2 [place] % (Auto) 12.3 H Eos % (Auto) 5.4 Baso % (Auto) 0.6 Neut # (Auto) 2.6 Lymph # (Auto) 1.2 [place] # (Auto) 0.6 Eos # (Auto) 0.3 Baso # (Auto) 0.0 Abs Immat Gran (auto) 0.01 Imm/Tot Granulo (auto) 0.2 ESR 17 Sodium 139 Potassium 3.7 Chloride 119 H Carbon Dioxide 24.6 Anion Gap -0.9 BUN 18.0 Creatinine 0.94 Est GFR ( Amer) >60 Est GFR (Non-Af Amer) >60 BUN/Creatinine Ratio 19.1 Glucose 114 H Calcium 8.2 L Total Bilirubin 0.3 AST 42 H ALT 68 H Alkaline Phosphatase 55 C-Reactive Protein 8.5 H Total Protein 5.5 L Albumin 2.4 L Globulin 3.1 Albumin/Globulin Ratio 0.8 Discharge Plan Discharge Disposition: Home, Self-Care Condition: Good Plan of Treatment: Finish anti biotics and f/u with PCP Discharge Medications: New clindamycin HCl 300 mg capsule 300 mg PO Q6H 10 Days Qty: 40 0RF Continued albuterol sulfate 2.5 mg /3 mL (0.083 %) solution for nebulization 2.5 mg continuous nebulization DAILY PRN (Reason: shortness of breath or wheezing) atorvastatin 10 mg tablet 10 mg PO DAILY bicalutamide 50 mg tablet 50 mg PO DAILY Anoro Ellipta 62.5-25 mcg/actuation blister with device 1 inh INHALATION DAILY PRN (Reason: sob) Activity: resume usual activities as tolerated Diet: advance to your usual diet Forms: Portal Instructions Follow Up Appointments: PCP in one week Discharge location: Home
--- NOTE | 2023-03-29 10:42 | CM.DCFOLLOWU ---
FIRST ATTEMPT FOR HOSPITAL DISCHARGE FOLLOW UP CALL WAS 03/29 WITH NO ANSWER.
== END 2023-03-27 15:34 | disposition home or self-care (01) | DRG 603 ==
LOC: ER 21:40 → MS 22:02
PROVIDERS: Family Medicine; Physician Assistant; Admitting Provider Internal Medicine; Emergency Provider Emergency Medicine; PCP Family Medicine; Visit Provider Internal Medicine
DX: L03.114 Cellulitis of left upper limb (principal); M86.9 Osteomyelitis, unspecified; J44.1 Chronic obstructive pulmonary disease with (acute) exacerbation; W55.01XS Bitten by cat, sequela; S61.412S Laceration without foreign body of left hand, sequela; I10 Essential (primary) hypertension; M05.79 Rheumatoid arthritis with rheumatoid factor of multiple sites without organ or systems involvement; D70.9 Neutropenia, unspecified; D50.9 Iron deficiency anemia, unspecified; H91.90 Unspecified hearing loss, unspecified ear; R47.9 Unspecified speech disturbances; R50.9 Fever, unspecified; Z87.891 Personal history of nicotine dependence; Z88.0 Allergy status to penicillin; Z79.899 Other long term (current) drug therapy; Z99.81 Dependence on supplemental oxygen
CPT/HCPCS: 36415; 71045; 73130; 73202; 80053; 83605; 83880; 85025; 85610; 85652; 85730; 86140; 87040; 93005; 94640; 94761; 96365; 96366; 96367; 96368; 96372; 96375; 96376; 97162; 97530; 99285; J3370; Q3014; Q9967

== ENCOUNTER 2023-06-13 18:01 | Inpatient (IN) | payer MEDICARE, SELFPAY ==
[2023-06-13] VITALS (32 sets, daily range): BP systolic 105–196; BP diastolic 53–133; PULSE 92–127; RESP 19–41; TEMP 37–38; O2SAT 91–96; BMI 19.5; BMI 22.8
--- NOTE | 2023-06-13 18:21 | ECG_ITS ---
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
--- NOTE | 2023-06-13 18:21 | XR_ITS ---
The [address] [address] Patient Name: ARISTIDES LASSITER MRN: [id number] date: 1950 Sex: M Assigned Patient Location: ER Current Patient Location: ER Accession/Order Number: [id number] Exam Date: 06/13/2023 18:38 Report Date: 06/13/2023 19:30 At the request of: TAWANDA GIANG Procedure: XR chest 1V EXAM: XR chest 1V HISTORY: weakness COMPARISON: 03/25/2023 TECHNIQUE: AP view of the chest FINDINGS: There is no focal airspace consolidation. Lungs are hyperinflated. The cardiomediastinal silhouette is not enlarged. No evidence of pleural effusion or pneumothorax are identified. No acute osseous abnormality. XR/XR chest 1V IMPRESSION: No acute cardiopulmonary process. Lungs appear hyperinflated suggestive of obstructive lung disease Electronically authenticated by: RENUKA UNLU Date: 06/13/2023 19:30
[2023-06-13 18:46] LABS: Basophils Percent Auto 0.3 % (0.2-2.0); Hematocrit 43.5 % (42.0-54.0); Immature Granulocytes Abs Auto 0.03 10^3/uL (0.00-0.03); Immature Granulocytes Pct Auto 0.4 % (0.0-0.5); Lymphocytes Absolute Auto 0.2 10^3/uL (1.2-3.8); Lymphocytes Percent Auto 2.1 % (20.5-60.0); Mean Corpuscular HGB Conc 34.5 g/dL (29.9-35.2); Mean Corpuscular Hemoglobin 32.4 pg (25.9-34.0); Mean Platelet Volume 9.3 fL (9.5-13.5); Monocytes Percent Auto 0.4 % (1.7-12.0); Neutrophils Absolute Auto 6.9 10^3/uL (1.4-6.5); Neutrophils Percent Auto 96.8 % (43.0-75.0); Platelet Count 282 10^3/uL (150-450); Red Blood Count 4.63 10^6/uL (4.70-6.10); Red Cell Distribution Width 13.4 % (11.0-15.0); White Blood Count 7.1 10^3/uL (4.0-11.0)
[2023-06-13] MEDS: IPRATROPIUM/ALBUTEROL SULFATE 3 ML AMPUL.NEB IH (18:50)
[2023-06-13] MEDS: 0.9 % SODIUM CHLORIDE 1,000 ML 1000 ML IV (18:57)
[2023-06-13 19:01] LABS: Lactate/Lactic Acid 1.7 mmol/L (0.4-2.0)
[2023-06-13 19:02] LABS: Alanine Aminotransferase 106 U/L (16-63); Albumin Globulin Ratio 0.9; Albumin Level 3.6 g/dL (3.4-5.0); Alkaline Phosphatase 102 U/L (46-116); Anion Gap 9.2; Aspartate Amino Transferase 137 U/L (15-37); BUN Creatinine Ratio 17.5; Bilirubin Total 0.8 mg/dL (0.2-1.0); Calcium 8.6 mg/dL (8.5-10.1); Chloride 104 mmol/L (98-107); Estimated GFR (African America >60 (>=60); Estimated GFR (Non-African Ame 59 (>=60); Globulin 3.8 g/dL; Glucose 105 mg/dL (74-106); Potassium 4.2 mmol/L (3.5-5.1); Sodium 136 mmol/L (136-145); Total Protein 7.4 g/dL (6.4-8.2); Troponin I High Sensitivity 16.3 pg/mL (4.0-76.1)
[2023-06-13 19:03] LABS: SARS-CoV-2 Ag NEGATIVE (NEGATIVE)
[2023-06-13] MEDS: ONDANSETRON PF 4 MG/2 ML VIAL IV (19:06)
[2023-06-13] MEDS: ACETAMINOPHEN 500 MG TABLET 1000 MG PO (19:20)
[2023-06-13] MEDS: CEFTRIAXONE 1,000 MG in 0.9 % SODIUM CHLORIDE 50 ML 100 MG IV (19:20)
--- NOTE | 2023-06-13 19:58 | ED_ITS ---
HPI - General Adult General Chief complaint: Weakness Stated complaint: GENERAL WEAKNESS Time Seen by Provider: 06/13/23 18:20 Source: family Mode of arrival: Wheelchair Limitations: no limitations History of Present Illness HPI narrative: Patient presents here to the emergency room chief complaint of weakness nausea vomiting shortness of breath. He has a history of chronic obstructive pulmonary disease wears 2 L oxygen at home. He states earlier today he began to have weakness chest pain shortness of breath and fevers. He is here with family member states he called her and stated he had been ill since this morning. Initially a low-grade fever a hundred degrees Fahrenheit, tachycardic and increased work of breathing. Patient does not appear toxic. He also has hoarseness of his voice. States is not normal for him. Patient has not been hospitalized since October earlier this year. He does not comfortable being home at this time shortness of breath. He states he had to increase his oxygen to 3 L/m. Related Data Home Medications Medication Instructions Recorded Confirmed albuterol sulfate 2.5 mg/3 mL 2.5 mg inhalation Q6H PRN 03/25/23 06/14/23 (0.083 %) solution for nebulization shortness of breath or wheezing bicalutamide 50 mg tablet 50 mg PO DAILY 03/25/23 06/13/23 umeclidinium 62.5 mcg-vilanterol 1 inh inhalation DAILY sob 03/25/23 06/14/23 25 mcg/actuation powdr for inhalation (Anoro Ellipta) metoprolol tartrate 50 mg tablet 50 mg PO DAILY 06/13/23 06/13/23 atorvastatin 10 mg tablet (Lipitor) 10 mg PO QPM 06/14/23 06/14/23 methotrexate sodium 10 mg tablet 10 mg PO QWEEK 06/14/23 06/14/23 (Trexall) Previous Rx's Medication Instructions Recorded aspirin 81 mg capsule 81 mg PO DAILY 30 days #30 caps 06/15/23 levofloxacin 500 mg tablet 500 mg PO DAILY 7 days #7 tabs 06/15/23 lisinopril 5 mg tablet 5 mg PO DAILY 30 days #30 tabs 06/15/23 Allergies Allergy/AdvReac Type Severity Reaction Status Date / Time Penicillins Allergy Severe Verified 06/13/23 20:21 prednisone Allergy Intermediate Rash Verified 06/13/23 20:21 Review of Systems ROS Narrative All Systems are negative except as noted/marked.All systems reviewed and otherwise negative [facility] Medical History (Updated 06/19/23 @ 00:00 by ) Surgical History Social History Smoking status: Former smoker Non-prescribed substance use: denies use Previous occupational history: none Highest level of school completed/degree received: 11th grade Are you now , , , , never or living with a partner: refused to answer In a typical week, how many times do you talk on the telephone with family, friends, or neighbors: 3 or more times per week How often do you get together with friends or relatives: 3 or more times per week How often do you attend protestant or protestant services: 4 or more times per year Do you belong to any clubs or organizations such as protestant groups unions, [employer] or athletic groups, or school groups: no Total score: 2 Score interpretation: A score of greater than or equal to 2 indicates the lowest level of social isolation. Little interest or pleasure in doing things: not at all Feeling down, depressed, or hopeless: not at all Feel stressed/tense/nervous/anxious/difficulty sleeping: not at all Due to disability, difficulty making decisions: No Do you think of yourself as: straight/heterosexual Gender Identity: male Exam Narrative Exam Narrative: General: The patient appears Ill mild respiratory distress but able to speak full sentences. Patient is resting comfortably on cart. Skin: Warm, dry, no pallor noted. There is no rash noted. Head: Normocephalic, atraumatic Eye: Normal conjunctiva, no drainage, EOMI. PERRL Ears, Nose, Mouth, and Throat: oral mucosa is moist. Nares patent. Mouth without vesicles. Ear canals patent. Tm's without Erythema Cardiovascular: Regular Rate and Rhythm Respiratory: Mild Rester distress with increased muscle usage, lung sounds diminished with scattered wheezing throughout posterior lung kelley Back: non-tender, no CVA tenderness bilaterally to percussion. GI: Normal bowel sounds, no tenderness to palpation, no masses appreciated. No rebound, guarding, or rigidity noted. Musculoskeletal: The patient has no evidence of calf tenderness, no pitting edema, symmetrical pulses noted bilaterally Neurological: A&O x4, normal speech Psychiatric: Cooperative Constitutional Vital Signs, click to edit/add: Last Vital Signs Temp 97.7 F 06/15/23 13:12 Pulse 83 06/15/23 14:01 Resp 20 06/15/23 13:12 BP 145/68 H 06/15/23 13:12 Pulse Ox 95 06/15/23 13:12 O2 Del Method Nasal Cannula 06/15/23 13:12 O2 Flow Rate 2 06/15/23 13:12 Course Course Hospital Course: please see progress note dated for today, only update is that Lexiscan stress test was negative. Has close follow up with PCP, will be discharged home on levaquin 500mg daily x 7 days, recommended he start daily baby aspirin and lisinopril 5mg daily in addition to his metoprolol for HTN. He is more than ready to leave, was planning to leave A if test was not read today as he was not interested in staying for any further cardiac intervention including a heart cath. Elevated trops type 2 NSTEMI. continue continuous oxgyen at 2 L NC. Return with any worsening symptoms. Vital Signs Vital signs: Vital Signs Temperature 100.4 F 06/13/23 18:04 Pulse Rate 110 H 06/13/23 18:04 Respiratory Rate 26 H 06/13/23 18:04 Blood Pressure 147/110 H 06/13/23 18:04 Pulse Oximetry 96 06/13/23 18:04 Oxygen Delivery Method Room Air 06/13/23 18:04 Temperature 97.7 F 06/15/23 13:12 Pulse Rate 83 06/15/23 14:01 Respiratory Rate 20 06/15/23 13:12 Blood Pressure 145/68 H 06/15/23 13:12 Pulse Oximetry 95 06/15/23 13:12 Oxygen Delivery Method Nasal Cannula 06/15/23 13:12 Oxygen Delivery Flow Rate 2 06/15/23 13:12 Medical Decision Making [facility] Narrative Medical decision making narrative: She presented here chief complaint of fever increased work of breathing generalized weakness. He states he had some mild chest pain with deep inspiration prior to arrival. CBC and troponin are within normal limits. He does have mildly elevated a LT and AST. He does say he was having nausea vomiting diarrhea earlier today. Abdomen soft nontender palpation at this time. Chest x- ray shows new onset of her right lower lobe pneumonia. Radiologist read as negative but as compared to previous chest x-rays there is a new right lower lobe infiltrate. Patient was given IV antibiotics Zofran and fluids here in the emergency room. DuoNeb breathing treatment was also given a patient does feel much better. He seems more calm and cooperative this time. Oxygen is at 2 L/m he is ninety-four percent. Upon arrival he had a low-grade fever 100.4 degrees. He was also medicated with Tylenol. Patient currently does not have any nausea has not had any vomiting since arrival here to the emergency room. Patient is not comfortable going home he can be admitted here to the hospital. I spoke to the hospitalist on-call . he'll be admitted to hospitalist Dr. Ludwig. Patient and family members agree with plan of care.Patient diagnosis of pneumonia. Elevated liver enzymes. Differential Diagnosis Differential Diagnosis: Bronchitis, chronic obstructive pulmonary disease, viral illness, pneumonia Medical Records Medical records reviewed: Yes I reviewed the patient's medical records Lab Data Lab results reviewed: Yes I reviewed the patient's lab results Labs: Lab Results 06/13/23 06/14/23 06/14/23 Range/Units 18:35 04:17 05:17 WBC 7.1 (4.0-11.0) 10^3/uL RBC 4.63 L (4.70-6.10) 10^6/uL Hgb 15.0 (14.0-18.0) g/dL Hct 43.5 (42.0-54.0) % MCV 94.0 (80.0-94.0) fL MCH 32.4 (25.9-34.0) pg MCHC 34.5 (29.9-35.2) g/dL RDW 13.4 (11.0-15.0) % Plt Count 282 (150-450) 10^3/uL MPV 9.3 L (9.5-13.5) fL Neut % (Auto) 96.8 H (43.0-75.0) % Lymph % (Auto) 2.1 L (20.5-60.0) % [place] % (Auto) 0.4 L (1.7-12.0) % Eos % (Auto) 0.0 L (0.9-7.0) % Baso % (Auto) 0.3 (0.2-2.0) % Neut # (Auto) 6.9 H (1.4-6.5) 10^3/uL Lymph # (Auto) 0.2 L (1.2-3.8) 10^3/uL [place] # (Auto) 0.0 L (0.3-0.8) 10^3/uL Eos # (Auto) 0.0 (0.0-0.7) 10^3/uL Baso # (Auto) 0.0 (0.0-0.1) 10^3/uL Abs Immat Gran (auto) 0.03 (0.00-0.03) 10^3/uL Imm/Tot Granulo (auto) 0.4 (0.0-0.5) % Sodium 136 139 (136-145) mmol/L Potassium 4.2 4.1 (3.5-5.1) mmol/L Chloride 104 108 H (98-107) mmol/L Carbon Dioxide 27.0 24.5 (21.0-32.0) mmol/L Anion Gap 9.2 10.6 BUN 21.0 H 19.0 H (7.0-18.0) mg/dL Creatinine 1.20 1.21 (0.70-1.30) mg/dL Est GFR ( Amer) >60 >60 (>=60) Est GFR (Non-Af Amer) 59 L 59 L (>=60) BUN/Creatinine Ratio 17.5 15.7 Glucose 105 125 H (74-106) mg/dL Lactate 1.7 (0.4-2.0) mmol/L Calcium 8.6 7.7 L (8.5-10.1) mg/dL Total Bilirubin 0.8 0.3 (0.2-1.0) mg/dL AST 137 H 112 H (15-37) U/L ALT 106 H 122 H (16-63) U/L Alkaline Phosphatase 102 63 (46-116) U/L Troponin I High Sens 16.3 268.1 H* (4.0-76.1) pg/mL NT-Pro-B Natriuret Pep (<=900.0) pg/mL Total Protein 7.4 5.7 L (6.4-8.2) g/dL Albumin 3.6 2.7 L (3.4-5.0) g/dL Globulin 3.8 3.0 g/dL Albumin/Globulin Ratio 0.9 0.9 SARS-CoV-2 (PCR) Negative (NEGATIVE) SARS-CoV-2 RNA (MIGUEL) Not detected (NOT DETECTE) 06/14/23 Range/Units 08:10 WBC (4.0-11.0) 10^3/uL RBC (4.70-6.10) 10^6/uL Hgb (14.0-18.0) g/dL Hct (42.0-54.0) % MCV (80.0-94.0) fL MCH (25.9-34.0) pg MCHC (29.9-35.2) g/dL RDW (11.0-15.0) % Plt Count (150-450) 10^3/uL MPV (9.5-13.5) fL Neut % (Auto) (43.0-75.0) % Lymph % (Auto) (20.5-60.0) % [place] % (Auto) (1.7-12.0) % Eos % (Auto) (0.9-7.0) % Baso % (Auto) (0.2-2.0) % Neut # (Auto) (1.4-6.5) 10^3/uL Lymph # (Auto) (1.2-3.8) 10^3/uL [place] # (Auto) (0.3-0.8) 10^3/uL Eos # (Auto) (0.0-0.7) 10^3/uL Baso # (Auto) (0.0-0.1) 10^3/uL Abs Immat Gran (auto) (0.00-0.03) 10^3/uL Imm/Tot Granulo (auto) (0.0-0.5) % Sodium (136-145) mmol/L Potassium (3.5-5.1) mmol/L Chloride (98-107) mmol/L Carbon Dioxide (21.0-32.0) mmol/L Anion Gap BUN (7.0-18.0) mg/dL Creatinine (0.70-1.30) mg/dL Est GFR ( Amer) (>=60) Est GFR (Non-Af Amer) (>=60) BUN/Creatinine Ratio Glucose (74-106) mg/dL Lactate (0.4-2.0) mmol/L Calcium (8.5-10.1) mg/dL Total Bilirubin (0.2-1.0) mg/dL AST (15-37) U/L ALT (16-63) U/L Alkaline Phosphatase (46-116) U/L Troponin I High Sens 308.1 H* (4.0-76.1) pg/mL NT-Pro-B Natriuret Pep 1367.0 H* (<=900.0) pg/mL Total Protein (6.4-8.2) g/dL Albumin (3.4-5.0) g/dL Globulin g/dL Albumin/Globulin Ratio SARS-CoV-2 (PCR) (NEGATIVE) SARS-CoV-2 RNA (MIGUEL) (NOT DETECTE) Imaging Data Chest x-ray: My impression: Changes the right lower lobe consistent right Lower lobe pneumonia Radiologist's impression: Patient Name: ARISTIDES LASSITER MRN: [id number] date: 1950 Sex: M Assigned Patient Location: ER Current Patient Location: ER Accession/Order Number: [id number] Exam Date: 06/13/2023 18:38 Report Date: 06/13/2023 19:30 At the request of: TAWANDA IGANG Procedure: XR chest 1V EXAM: XR chest 1V HISTORY: weakness COMPARISON: 03/25/2023 TECHNIQUE: AP view of the chest FINDINGS: There is no focal airspace consolidation. Lungs are hyperinflated. The cardiomediastinal silhouette is not enlarged. No evidence of pleural effusion or pneumothorax are identified. No acute osseous abnormality. IMPRESSION: No acute cardiopulmonary process. Lungs appear hyperinflated suggestive of obstructive lung disease Electronically authenticated by: RENUKA UNLU Date: 06/13/2023 19:30 ECG Data Attestation: I personally reviewed and interpreted this ECG as follows: Interpretation: Sinus tachycardia rate of her 16 bpm, AL interval 148 ms, QRS duration 76 ms. no STEMI Discharge Plan Discharge Chief Complaint: Weakness Clinical Impression: Pneumonia Patient Disposition: Admitted as Observation Time of Disposition Decision: 20:10 Condition: Fair Interventions: ED Discharge Assessment Last Done: 06/13/23 22:07 Discharge Date/Time: 06/13/23 21:49
[2023-06-13] MEDS: AZITHROMYCIN 500 MG in 0.9 % SODIUM CHLORIDE 250 ML 250 MG IV (20:14)
[2023-06-13] MEDS: L. ACIDOPHILUS/L.BULGARICUS 1 PACKET GRAN.PACK PO (23:07)
[2023-06-13] MEDS: OMEPRAZOLE 20 MG CAPSULE.DR PO (23:07)
[2023-06-14] VITALS (16 sets, daily range): BP systolic 106–139; BP diastolic 51–67; PULSE 64–93; RESP 18–20; TEMP 36.6–36.9; O2SAT 94–96; BMI 22.8
[2023-06-14] MEDS: ONDANSETRON PF 4 MG/2 ML VIAL IV (00:15)
--- NOTE | 2023-06-14 02:54 | P.PN_ITS ---
Progress Note: Subjective Subjective Interval history: pt is a 72m with hx of copd on 2L cont at baseline and htn presenting with c/o cp, sob and weakness for one day. reports that upon waking up he felt fine and went to nondenominational. he returned home and took a nap. upon waking up around 5pm, he felt short of breath, weak, with subj fever. he also reports having nausea and several bouts of loose watery nonbloody diarrhea. he incr his O2 tank up to 3L and used his inhalers but no relief. CP is described as axhy and exacerbated with cough. pt reports cough is assoc with green phlegm. denies any sick contacts or recent travel. In ED, vitals noted for hr 117, RR 37, temp 100.4, 94% 3L. Labd noted for mild elev LFTs o/w rest of labs normal incl normal cbc, lactic acid, neg trop, and covid negative. ekg sinus tachy 116, no acute ischemia. cxr hyperinfalted lungs c/w underlying copd. Pt tx in ED with ivf,rocephin, zithroomax, nabs and zofran. Of note, familyt reports pt has hx of allergy to prednisone that causes rash. Exam Constitutional Vital Signs, click to edit/add: Last Vital Signs Temp 100 F 06/13/23 22:07 Pulse 100 H 06/13/23 22:13 Resp 20 06/13/23 22:13 BP 105/55 06/13/23 22:02 Pulse Ox 93 L 06/13/23 23:37 O2 Del Method Nasal Cannula 06/13/23 23:37 O2 Flow Rate 2 06/13/23 23:37 Documenting provider has reviewed patient's vital signs: yes Common normals: no apparent distress General appearance: cooperative Orientation/consciousness: Yes oriented to person, Yes oriented to place and Yes oriented to time HENMT Common normals: normocephalic Head and scalp: normal to inspection and atraumatic General ear: hearing grossly impaired ([place]) Eye Common normals: PERRL and EOMs intact bilaterally Neck & C-Spine Common normals: full ROM Chest Common normals: inspection of chest normal Chest: symmetrical chest wall rise Respiratory Common normals: no use of accessory muscles Auscultation: diminished lung sounds Cardio Common normals: regular rate, regular rhythm, S1 normal heart sound and S2 normal heart sound GI Common normals: Normal to inspection, nondistended, normoactive bowel sounds present, soft to palpation and non-tender Extremity Common normals: normal to inspection, full ROM and no clubbing, cyanosis or edema Neuro Common normals: oriented x3, CN's II-XII intact bilaterally, moves all extremities, no focal motor deficits and no sensory deficits noted Psych Common normals: mental status grossly normal, thought process normal and coope rative Progress Note: Objective Labs Labs: Short CBC 06/13/23 Range/Units 18:35 WBC 7.1 (4.0-11.0) 10^3/uL Hgb 15.0 (14.0-18.0) g/dL Hct 43.5 (42.0-54.0) % Plt Count 282 (150-450) 10^3/uL BMP 06/13/23 18:35 Sodium 136 Potassium 4.2 Chloride 104 Carbon Dioxide 27.0 BUN 21.0 H Creatinine 1.20 Glucose 105 Calcium 8.6 Liver Function 06/13/23 Range/Units 18:35 Total Bilirubin 0.8 (0.2-1.0) mg/dL AST 137 H (15-37) U/L ALT 106 H (16-63) U/L Alkaline Phosphatase 102 (46-116) U/L Albumin 3.6 (3.4-5.0) g/dL Imaging Chest x-ray: My impression: no consol process hyperinflated Progress Note: A&P Assessment and Plan (1) COPD (chronic obstructive pulmonary disease): (2) Hypertension: Qualifiers: Hypertension type: primary hypertension Qualified Code(s): I10 - Essential (primary) hypertension Plan copd exac acute on chronic hypoxic resp failure CP, likely pleurtici sec to cough HTN Early Sepsis with feverrt, tachy,tachypneic Mild elev LFTs N/V/D, poss gastroenteritis Plan: admit obs, tele resume home anoro-ellipta. home med. nonformulary here zithromax chk sputum culture and gram stain, pend BCx duonebs, mucinex wean O2 as sabra. currently 3L. uses 2 L cont at baseline hold off on steroids for now as no signif wheezing on exam and reported alelergy to pred with rash rechk trop cont home metoprolol. if no imrpvement of resp sx then may need to consider holding BB no diarrhea since being at home. if recurs will need stool studies ivf CLD. adv as sabra mild LFT elev may be sec to dehydration in setting of n/v/d. monitor LFTs with statin pepcid dvt px/ lovenox full code Telemedicine Attestation Telemedicine Attestation I conducted this encounter from [MD] via secure live, [id number] video conference with the patient, located at [facility] with [RN Brenda]. Prior to the interview, the risks and benefits of telemedicine were discussed with the patient and verbal consent was obtained.
[2023-06-14 05:43] LABS: Alanine Aminotransferase 122 U/L (16-63); Albumin Globulin Ratio 0.9; Albumin Level 2.7 g/dL (3.4-5.0); Alkaline Phosphatase 63 U/L (46-116); Anion Gap 10.6; Aspartate Amino Transferase 112 U/L (15-37); BUN Creatinine Ratio 15.7; Bilirubin Total 0.3 mg/dL (0.2-1.0); Calcium 7.7 mg/dL (8.5-10.1); Carbon Dioxide 24.5 mmol/L (21.0-32.0); Chloride 108 mmol/L (98-107); Estimated GFR (African America >60 (>=60); Estimated GFR (Non-African Ame 59 (>=60); Glucose 125 mg/dL (74-106); Potassium 4.1 mmol/L (3.5-5.1); Sodium 139 mmol/L (136-145); Total Protein 5.7 g/dL (6.4-8.2)
--- NOTE | 2023-06-14 06:00 | ECG_ITS ---
[facility] Test Date: 2023-06-14 Pat Name: ARISTIDES LASSITER Department: Room: [facility] Gender: Male Global Recruiter: : 1950 Requested By: [id number] Order Number: [id number] Reading MD: GUZMAN HOWE Measurements Intervals Simpson Rate: 70 P: 72 IL: 171 QRS: 82 QRSD: 82 T: 83 QT: 445 QTc: 482 Interpretive Statements SINUS RHYTHM WITH MARKED SINUS ARRHYTHMIA PROLONGED QT INTERVAL Compared to ECG 06/13/2023 18:14:10 Prolonged QT interval now present Sinus tachycardia no longer present ST (T wave) deviation no longer present Electronically Signed On 06-14-2023 7:08:29 EDT by GUZMAN HOWE
--- NOTE | 2023-06-14 06:00 | CA_ITS ---
Patient: ARISTIDES LASSITER Exam Date: 06/14/2023 : 1950 Gender:M Ordering : VAISHNAVI CHOU . Admission #: [id number] Family : Trevor Cox Order #: [id number] CLICK HERE TO VIEW EXAM ECHOCARDIOGRAM REPORT PROCEDURE: CA ECHO DOPPLER COMPLETE INDICATIONS: Chest pain, abnormal EKG, elevated TROP, hypertension COMPARISON: None. DESCRIPTION: COMPLETE ECHOCARDIOGRAM Real-time transthoracic echocardiography with 2D, M-mode, spectral and color flow Doppler performed. QUALITY: Technically difficult due to patient's condition. LEFT VENTRICLE: Normal chamber size. Mildly increased left ventricular wall thickness. LV EF: Global left ventricular systolic function is difficult to assess but appears preserved; ejection fraction normal in size and systolic function. Estimated to be about 55%. Cannot comment on regional wall motion abnormalities; consider contrast study for better delineation of endocardial borders. DIASTOLIC: Normal diastolic function. ATRIAL SEPTUM: Inadequately seen. LEFT ATRIUM: Normal chamber size. RIGHT ATRIUM: Normal chamber size. RIGHT VENTRICLE: Poorly seen; appears normal in size and systolic function. TRICUSPID VALVE: Normal mobility and thickness. No stenosis with mild to moderate regurgitation. No evidence of pulmonary hypertension. RVSP 32 mmHg MITRAL VALVE: Normal mobility and thickness. No evidence of mitral valve stenosis. There is no mitral annular calcification. No mitral regurgitation. AORTIC VALVE: Normal trileaflet appearance. Thickened aortic valve. Normal leaflet mobility. No evidence of aortic valve stenosis. No aortic regurgitation. AORTIC ROOT: Normal diameter and appearance. PULMONIC VALVE: Not well visualized. No stenosis. No regurgitation. PERICARDIUM: No evidence of pericardial effusion. IVC: IVC is normal in size with no collapse. CONCLUSION: Global left ventricular systolic function is difficult to assess but appears preserved. Cannot comment on regional wall motion abnormalities. Normal diastolic function. Mild increased left ventricular wall thickness. The right ventricle is poorly seen; appears normal in size with preserved systolic function. The valves are poorly seen; mild to moderate tricuspid regurgitation. Adult Echocardiography Procedure Report Left Ventricle LVEDD (3.7 - 5.6 cm): 3.79 cm LVESD (2.2 - 4.0 cm): 2.57 cm LVIVS thickness (0.6 - 1.2 cm): 1.16 cm LVPW thickness (0.5 - 1.0 cm): 0.93 cm e': 0.10 m/s E - e': 6.35 LVOT Max Gradient: 2.79 mm[Hg] LVOT Area (cm2): 0.84 m/s Peak Velocity (LVOT): 0.84 m/s LVOT Diameter 2.25 cm Left Atrium LA Volume Index (2D A2C): 20.27 ml/m2 Left Atrium Systolic Dimension: 3.16 cm Mitral Valve MV E to A Ratio: 0.81 Mitral Valve A-Wave Peak Velocity: 0.83 m/s Mitral Valve E-Wave Peak Velocity: 0.67 m/s Right Ventricle Aorta AO Root Diam: 3.77 cm Ascending Ao Diam: 3.13 cm Aortic Valve AoV Area (Peak Wali): 3.33 cm2, 3.33 cm2 Peak Velocity(Antegrade Flow): 1.00 m/s Peak Gradient(Antegrade Flow): 3.98 mm[Hg] Tricuspid Valve Peak Velocity (Regurgitant Flow): 2.44 m/s Pulmonic Valve Peak Velocity: 0.52 m/s Peak Gradient: 1.07 mm[Hg] Right Atrium Right Atrium Systolic Pressure: 41.91 ml, 41.91 ml Dictated by: Tyra Santiago M.D. on 06/15/2023 at 13:44 Approved by: Tyra Santiago M.D. on 06/15/2023 at 13:48
--- NOTE | 2023-06-14 06:15 | NM_ITS ---
Patient: ARISTIDES LASSITER Exam Date: 06/15/2023 : 1950 Gender:M Ordering : SIDNEY DA SILVA Admission #: [id number] Family : VAISHNAVI CHOU . Order #: [id number] CLICK HERE TO VIEW EXAM RADIOLOGY REPORT PROCEDURE: NM TASHA PERF SPECT REST STR COMPARISON: None. INDICATIONS: chest tightness, elevated triponin TECHNIQUE: Exam Description: Stress/Rest one day protocol gated SPECT Rest Imagin.6 mCi Tc-99m Cardiolite IV on 06/15/2023 Stress Imaging 30.1 mCi Tc-99m Cardiolite IV on 06/15/2023 Exercise Protocol: 0.4 mg Lexiscan given IV Heart Rate (bpm): Rest: 78 Max: 109 PMHR: 74 Blood Pressure: Rest: 166/82 Max: 178/80 Symptoms: Rest and peak stress ECG findings were pending and the exercise portion of the study was pending per attending physician Dr. Cox . For more details please see separate cardiac stress test report. FINDINGS: QUALITY OF STUDY: Excellent. PERFUSION DEFECT: None. LOCATION: N/A SIZE: N/A. SEVERITY: N/A. TYPE: N/A. WALL MOTION: Normal. LV SIZE: Normal. 81 mL. TID / TCD: None; 1.0 LVEF: Normal. Calculated EF 62%. SUMMARY: Myocardial perfusion imaging study is NORMAL. CONCLUSION: 1. Normal nuclear medicine myocardial perfusion scan. Dictated by: Delfino Hill M.D. on 06/15/2023 at 14:13 Approved by: Delfino Hill M.D. on 06/15/2023 at 14:20
[2023-06-14 06:38] LABS: Troponin I High Sensitivity 268.1 pg/mL (4.0-76.1)
--- NOTE | 2023-06-14 08:02 | PC.NURSE ---
no edema noted
[2023-06-14 08:41] LABS: Troponin I High Sensitivity 308.1 pg/mL (4.0-76.1)
--- NOTE | 2023-06-14 08:54 | PM.HP ---
H&P: HPI History of Present Illness Chief complaint: GENERAL WEAKNESS PNEUMONIA Narrative: patient is a 72-year-old male with past medical history of hypertension, rheumatoid arthritis, chronic obstructive pulmonary disease requiring continuous oxygen at 2 L nasal cannula, ex-smoker, hyperlipidemia. Patient stated that yesterday he went to mosque and developed a sudden onset of shortness of breath with some chest pressure. The chest pain or pressure was exacerbated by coughing of which she has noted some increased sputum production over the last couple days. He also has become more short of breath with exertion and when he is out feeding and watering his dogs this is when he notices some fatigue and shortness of breath. He said he increased his oxygen from 2-3 L and hopes that that would help with his symptoms. He also reports difficulty getting his home oxygen in the house and says all he has is a portable oxygen tank. Sodium is uncertain whether the patient has actually been receiving his oxygen therapy. He does note that he has been compliant with his Anoro and denies having to use a rescue inhaler. He denies any fevers chills. He does now he follows with a pick pack worker, he also notes he has a history of prostate cancer and has been taking a chemotherapy agent for this. He denies seeing a technical publications writer. He states this morning that his pain has improved and his shortness of breath has improved. I discussed with him the increase in his troponin and he states that he has seen a film or videotape editor 2-3 years ago and was told that his heart was fine. He denies ever having a recent stress test or cardiac catheterization. He has a history of smoking but quit when he was [age]. He has been compliant with his statin medications. Review of Systems ROS Narrative ROS: a complete review of systems were reviewed with patient and are positive as below or listed in History of Chief Complaint. General: no fever, chills, night sweats Head: no headache, trauma, visual changes, nausea or vomiting Skin: no reported rashes, itching or sores Eyes: no blurriness of vision Ears: no reported hearing loss, vertigo, earache, or tinnitus Throat: no sore throat, hoarseness, swelling of neck, or tongue pain Heart: chest pain Lungs: shortness of breath and cough GI: no diarrhea or vomiting/nausea Urinary: no urinary urgency, frequency or pain Neuro: no numbness or tingling HEM: no bleeding issues or bruising ENDO: no thyroid problems Psych: no anxiety or depression [facility] Medical History (Updated 06/14/23 @ 12:49 by Falguni Ludwig DO) Surgical History Social History Smoking status: Former smoker Non-prescribed substance use: denies use Previous occupational history: none Highest level of school completed/degree received: 11th grade Are you now , , , , never or living with a partner: refused to answer In a typical week, how many times do you talk on the telephone with family, friends, or neighbors: 3 or more times per week How often do you get together with friends or relatives: 3 or more times per week How often do you attend mosque or pentecostal services: 4 or more times per year Do you belong to any clubs or organizations such as mosque groups unions, [email or web address] or athletic groups, or school groups: no Total score: 2 Score interpretation: A score of greater than or equal to 2 indicates the lowest level of social isolation. Little interest or pleasure in doing things: not at all Feeling down, depressed, or hopeless: not at all Feel stressed/tense/nervous/anxious/difficulty sleeping: not at all Due to disability, difficulty making decisions: No Do you think of yourself as: straight/heterosexual Gender Identity: male Meds Home Medications and Allergies Home Medications Medication Instructions Recorded Confirmed Type albuterol sulfate 2.5 mg/3 mL 2.5 mg inhalation Q6H PRN 03/25/23 06/14/23 History (0.083 %) solution for nebulization shortness of breath or wheezing bicalutamide 50 mg tablet 50 mg PO DAILY 03/25/23 06/13/23 History umeclidinium 62.5 mcg-vilanterol 1 inh inhalation DAILY sob 03/25/23 06/14/23 History 25 mcg/actuation powdr for inhalation (Anoro Ellipta) metoprolol tartrate 50 mg tablet 50 mg PO DAILY 06/13/23 06/13/23 History atorvastatin 10 mg tablet (Lipitor) 10 mg PO QPM 06/14/23 06/14/23 History methotrexate sodium 10 mg tablet 10 mg PO QWEEK 06/14/23 06/14/23 History (Trexall) Allergies Allergy/AdvReac Type Severity Reaction Status Date / Time Penicillins Allergy Severe Verified 06/13/23 20:21 prednisone Allergy Intermediate Rash Verified 06/13/23 20:21 Exam Narrative Exam Narrative: General: Patient is alert, and oriented to person, place and time with normal affect, proper hygiene Skin: no visible rashes, or ulcers Head: atraumatic, acephalic Eyes: PERRLA, no nystagmus present, conjunctiva clear, no scleral icterus Ears: diminished gross auditory acuity Nose: symmetric, no discharge, no maxillary or frontal sinus tenderness Heart: Normal rate and rhythm, no murmurs/rubs/gallops Lungs: audible wheezes, no crackles Abdomen: Normal audible bowel sounds, no distension, No palpable masses, no organomegaly, no rebound/guarding/ or rigidity Musculoskeletal: muscle atrophy noted, ROM is limited due to being in hospital bed, no swelling bilateral lower extremities Vascular: Normal carotid, radial, femoral, posterior tibial, and dorsalis pedis pulses Lymph: no supraclavicular, axillary, or anterior/posterior cervical adenopathy Neuro: CN II-X grossly intact, normal sensation upper and lower extremities Constitutional Vital Signs, click to edit/add: Last Vital Signs Temp 98.4 F 06/14/23 07:47 Pulse 69 06/14/23 07:47 Resp 20 06/14/23 07:47 BP 118/62 06/14/23 07:47 Pulse Ox 96 06/14/23 07:47 O2 Del Method Nasal Cannula 06/14/23 07:47 O2 Flow Rate 2 06/14/23 07:47 Results Labs Labs: Short CBC 06/13/23 Range/Units 18:35 WBC 7.1 (4.0-11.0) 10^3/uL Hgb 15.0 (14.0-18.0) g/dL Hct 43.5 (42.0-54.0) % Plt Count 282 (150-450) 10^3/uL BMP 06/13/23 06/14/23 18:35 04:17 Sodium 136 139 Potassium 4.2 4.1 Chloride 104 108 H Carbon Dioxide 27.0 24.5 BUN 21.0 H 19.0 H Creatinine 1.20 1.21 Glucose 105 125 H Calcium 8.6 7.7 L Liver Function 06/13/23 06/14/23 Range/Units 18:35 04:17 Total Bilirubin 0.8 0.3 (0.2-1.0) mg/dL AST 137 H 112 H (15-37) U/L ALT 106 H 122 H (16-63) U/L Alkaline Phosphatase 102 63 (46-116) U/L Albumin 3.6 2.7 L (3.4-5.0) g/dL Assessment and Plan Assessment and Plan (1) Acute exacerbation of chronic obstructive pulmonary disease: Assessment and Plan: will continue duoneb treatments, Azith and rocephin. continue oxygen therapy, will check viral panel (2) Bilateral upper lobe community acquired pneumonia: Assessment and Plan: add rocephin to zithromax, CXR shows possible aspiration, esophagitis vs CAP (3) Elevated troponin: Assessment and Plan: echo pending, given aspirin, loading dose of lipitor 80mg PO once, will check lipid panel in the morning, TSH. Called cards for consult. elevated proBNP, if echo normal, most likely NSTEMI type II from supply demand from lung issues. EKG was unremarkable. no events on telemetry. Normal CTA, no PE's seen (4) Acute CHF (congestive heart failure): Assessment and Plan: elevated proBNP, no prior heart history, will await echo results and cards consult for recommendations (5) Hypertension: Assessment and Plan: continue metoprolol Qualifiers: Hypertension type: primary hypertension Qualified Code(s): I10 - Essential (primary) hypertension (6) Rheumatoid arthritis: Assessment and Plan: continue methotrexate Qualifiers: Rheumatoid arthritis location: multiple sites Rheumatoid factor presence: with rheumatoid factor Qualified Code(s): M05.79 - Rheumatoid arthritis with rheumatoid factor of multiple sites without organ or systems involvement (7) Hyperlipidemia: Assessment and Plan: check lipid panel in the morning, continue Lipitor (8) Prostate cancer: Plan patient is full code Will continue Lovenox for deep vein thrombosis prophylaxis Patient is inpatient status and is expected to stay more than two midnights
[2023-06-14] MEDS: OMEPRAZOLE 20 MG CAPSULE.DR PO ×2 (09:26→20:10)
[2023-06-14] MEDS: GUAIFENESIN 600 MG TAB.ER.12H PO ×2 (09:26→20:10)
[2023-06-14] MEDS: ENOXAPARIN SODIUM 40 MG/0.4 ML SYRINGE SUBQ (09:26)
[2023-06-14] MEDS: L. ACIDOPHILUS/L.BULGARICUS 1 PACKET GRAN.PACK PO ×2 (09:27→20:10)
[2023-06-14 10:37] LABS: D Dimer 5.14 mg/L FEU (<=0.59)
--- NOTE | 2023-06-14 10:43 | CT_ITS ---
[address] [address] Patient Name: ARISTIDES LASSITER MRN: [id number] date: 1950 Sex: M Assigned Patient Location: [place] Current Patient Location: Accession/Order Number: [id number] Exam Date: 06/14/2023 10:57 Report Date: 06/14/2023 11:45 At the request of: VAISHNAVI CHOU Procedure: CT angio chest EXAM: CT angio chest HISTORY: elevated d-dimer, hypoxia COMPARISON: None. TECHNIQUE: CT chest with intravenous contrast was performed with timing for the evaluation for pulmonary arteries. Multiplanar reformats were performed. MIP (maximum intensity projection) images or 3D post processing was performed. Dose reduction techniques were achieved by using automated exposure control and/or adjustment of mA and/or kV according to patient size and/or use of iterative reconstruction technique. FINDINGS: Lungs: No pneumothorax or effusion. There Airways: Normal. Mediastinum: No adenopathy. Aorta: No aneurysm. Cardiac: Normal size. No pericardial effusion. Pulmonary vasculature: Diagnostic opacification of pulmonary arteries without evidence of pulmonary embolus. Normal morphology. Bones: No acute bony abnormality. T11 Schmorl's node. Axilla: No adenopathy. Thyroid gland: No abnormality demonstrated on provided imaging. Soft tissues: Unremarkable. Upper abdomen:Small hiatal hernia. Circumferential wall thickening of the distal esophagus, may represent esophagitis due to gastroesophageal reflux. Correlation with patient's clinical symptom and upper GI endoscopy is recommended. CT/CT angio chest IMPRESSION: No evidence of pulmonary embolus. Left greater than right basilar atelectasis and/or consolidation, may represent aspiration pneumonia. Superior and basilar segments of the left lower lobes nodular opacities, measuring 1.1 and 0.8 cm, can be inflammatory/infectious in etiology. Posttreatment follow-up is recommended to evaluate stability. Small hiatal hernia. Circumferential wall thickening of the distal esophagus, may represent esophagitis due to gastroesophageal reflux. Correlation with patient's clinical symptom and upper GI endoscopy is recommended. Electronically authenticated by: YOGI VOGT Date: 06/14/2023 11:45
[2023-06-14] MEDS: ATORVASTATIN CALCIUM 40 MG TABLET 80 MG PO (10:50)
[2023-06-14] MEDS: ASPIRIN 325 MG TABLET PO (10:51)
[2023-06-14 11:02] LABS: Internal Control Within Normal Limits; Strep A Antigen Screen Negative
--- NOTE | 2023-06-14 11:33 | CM.NOTE ---
Rounds made with Dr. Ludwig, awaiting cardiology to see pt. D-dimer elevated pt will have CTA and also echo ordered.
--- NOTE | 2023-06-14 12:20 | CM.NOTE ---
Important Message From Medicare discussed with pt, pt verbalizes understanding and signs paper. Original given to pt and copy placed on pt's chart.
--- NOTE | 2023-06-14 12:29 | SWNOTE1 ---
SW met with pt to discuss dc needs. 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 Pt has good friend/family support. Pt did have questions in regards to his [employer] oxygen portable. Pt had called [employer] several times and they have not called him back. He would like someone to come check his [employer]ogen and clean it for him. SW to call [employer] to see if they are able to do this. Pt has voiced he has been through a few PCP's. SW asked if he wanted to switch from the inogen back to portable oxygen at home with a concentrator? He stated no he just wants someone from [employer] to call him back or check his inogen. SW to call.
--- NOTE | 2023-06-14 12:45 | PM.CACN ---
History of Present Illness History of Present Illness Consult date: 06/14/23 Requesting physician: Falguni Ludwig Consult reason: shortness of breath (elevated trops ) Chief complaint: GENERAL WEAKNESS PNEUMONIA Narrative: 72-year-old male came in with past medical history of COPD. He has been experiencing shortness of breath worse than his baseline and was evaluated in the ER. He was found to have pneumonia, acute CHF pending echo results and upon admission troponin levels were normal and have increased to 300. He has had no cardiac testing in the past. He states he did have chest pain on admission which felt like tightening of his chest associated with shortness of breath. He states he was unable to distinguish between COPD shortness of breath and cardiac chest pain. Review of Systems ROS Cardiovascular Reports: chest pain and shortness of breath with exertion Respiratory Reports: shortness of breath, cough and chest congestion [facility] Medical History (Updated 06/14/23 @ 12:49 by Falguni Ludwig DO) Surgical History Social History Smoking status: Former smoker Non-prescribed substance use: denies use Previous occupational history: none Highest level of school completed/degree received: 11th grade Are you now , , , , never or living with a partner: refused to answer In a typical week, how many times do you talk on the telephone with family, friends, or neighbors: 3 or more times per week How often do you get together with friends or relatives: 3 or more times per week How often do you attend anabaptist or sabianist services: 4 or more times per year Do you belong to any clubs or organizations such as anabaptist groups unions, fraternal or athletic groups, or school groups: no Total score: 2 Score interpretation: A score of greater than or equal to 2 indicates the lowest level of social isolation. Little interest or pleasure in doing things: not at all Feeling down, depressed, or hopeless: not at all Feel stressed/tense/nervous/anxious/difficulty sleeping: not at all Due to disability, difficulty making decisions: No Do you think of yourself as: straight/heterosexual Gender Identity: male Meds Home Medications and Allergies Home Medications Medication Instructions Recorded Confirmed Type albuterol sulfate 2.5 mg/3 mL 2.5 mg inhalation Q6H PRN 03/25/23 06/14/23 History (0.083 %) solution for nebulization shortness of breath or wheezing bicalutamide 50 mg tablet 50 mg PO DAILY 03/25/23 06/13/23 History umeclidinium 62.5 mcg-vilanterol 1 inh inhalation DAILY sob 03/25/23 06/14/23 History 25 mcg/actuation powdr for inhalation (Anoro Ellipta) metoprolol tartrate 50 mg tablet 50 mg PO DAILY 06/13/23 06/13/23 History atorvastatin 10 mg tablet (Lipitor) 10 mg PO QPM 06/14/23 06/14/23 History methotrexate sodium 10 mg tablet 10 mg PO QWEEK 06/14/23 06/14/23 History (Trexall) Allergies Allergy/AdvReac Type Severity Reaction Status Date / Time Penicillins Allergy Severe Verified 06/13/23 20:21 prednisone Allergy Intermediate Rash Verified 06/13/23 20:21 Exam Constitutional Vital Signs, click to edit/add: Last Vital Signs Temp 98.4 F 06/14/23 07:47 Pulse 64 06/14/23 12:12 Resp 20 06/14/23 07:47 BP 118/62 06/14/23 07:47 Pulse Ox 96 06/14/23 11:10 O2 Del Method Nasal Cannula 06/14/23 11:10 O2 Flow Rate 2 06/14/23 11:10 Results Labs and Meds Lab results: Cardiac Enzymes 06/13/23 06/14/23 Range/Units 18:35 04:17 AST 137 H 112 H (15-37) U/L CBC 06/13/23 Range/Units 18:35 WBC 7.1 (4.0-11.0) 10^3/uL RBC 4.63 L (4.70-6.10) 10^6/uL Hgb 15.0 (14.0-18.0) g/dL Hct 43.5 (42.0-54.0) % Plt Count 282 (150-450) 10^3/uL Neut # (Auto) 6.9 H (1.4-6.5) 10^3/uL Lymph # (Auto) 0.2 L (1.2-3.8) 10^3/uL [place] # (Auto) 0.0 L (0.3-0.8) 10^3/uL Eos # (Auto) 0.0 (0.0-0.7) 10^3/uL Baso # (Auto) 0.0 (0.0-0.1) 10^3/uL Comprehensive Metabolic Panel 06/13/23 06/14/23 Range/Units 18:35 04:17 Sodium 136 139 (136-145) mmol/L Potassium 4.2 4.1 (3.5-5.1) mmol/L Chloride 104 108 H (98-107) mmol/L Carbon Dioxide 27.0 24.5 (21.0-32.0) mmol/L BUN 21.0 H 19.0 H (7.0-18.0) mg/dL Creatinine 1.20 1.21 (0.70-1.30) mg/dL Glucose 105 125 H (74-106) mg/dL Calcium 8.6 7.7 L (8.5-10.1) mg/dL AST 137 H 112 H (15-37) U/L ALT 106 H 122 H (16-63) U/L Alkaline Phosphatase 102 63 (46-116) U/L Total Protein 7.4 5.7 L (6.4-8.2) g/dL Albumin 3.6 2.7 L (3.4-5.0) g/dL Intake and Output 06/13/23 06/14/23 06/14/23 23:59 07:59 15:59 Intake Total 2600.000 / 3200.000 600 / 3200.000 120 / 120 Output Total 250 / 250 Balance 2600.000 / 2950.000 350 / 2950.000 120 / 120 Intake: Oral 600 / 600 120 / 120 Other 1300.000 / 1300.000 IV 1300.000 / 1300.000 0.9 % Sodium Chloride 1,000 ml 1000 / 1000 @ 1000 mls/hr IV .Q1H ONE Rx#: [id number] Azithromycin 500 mg In 0.9 % 250 / 250 Sodium Chloride 250 ml @ 250 mls/hr IV ONCE ONE Rx#:[id number] Ceftriaxone 1,000 mg In 0.9 % 50.000 / 50.000 Sodium Chloride 50 ml @ 100 mls /hr IV ONCE ONE Rx#:[id number] Output: Urine 250 / 250 Other: # Unmeasured Voids 1 1 # Bowel Movements 1 # Incontinent Bowel Movements 1 Weight 74.3 kg 74.298 kg Patient Weight 06/15/23 07:59 Weight 74.298 kg Assessment and Plan Assessment and Plan (1) COPD (chronic obstructive pulmonary disease): Assessment and Plan: On supplemental O2 -Being treated for community-acquired pneumonia - (2) Hypertension: Assessment and Plan: stable, consider adding lisinopril Qualifiers: Hypertension type: primary hypertension Qualified Code(s): I10 - Essential (primary) hypertension (3) Elevated troponin: Assessment and Plan: no prev cardiac testing -pending echo, will order for lexiscan stress to rule out CAD (4) Acute CHF (congestive heart failure): Assessment and Plan: BNP elevated -euvolemic and compenstaed , likely secondary to COPD Plan will need lexiscan stress for elevated trops and cp on admission given the risk factors. pending echo results EKG portion of stress test is neg for ischemia. Awaiting perfusion images which will be read by Radiology.
[2023-06-14] MEDS: CEFTRIAXONE 1,000 MG in 0.9 % SODIUM CHLORIDE 50 ML 100 MG IV (14:16)
--- NOTE | 2023-06-14 14:26 | SWNOTE1 ---
SW spoke with [employer] via phone and they were able to look pt up. Pt has purchased the ingoen, not renting, and his warranty has . He can call the 800 number anytime and they do look for any issues by trouble shooting the equipment over the phone. They also suggested he clean the filters and also recommended he buys new nasal canule every 3 months, which can be purchased at any drug store or medical equipment supply store. FRANKIE wrote information down on paper and let pt know.
[2023-06-14 14:44] LABS: Troponin I High Sensitivity 221.1 pg/mL (4.0-76.1)
[2023-06-14 16:07] LABS: SARS-CoV-2 NAA NOT DETECTED (NOT DETECTE)
[2023-06-14] MEDS: IPRATROPIUM/ALBUTEROL SULFATE 3 ML AMPUL.NEB IH ×2 (16:24→23:38)
[2023-06-14] MEDS: AZITHROMYCIN 500 MG in 0.9 % SODIUM CHLORIDE 250 ML 250 MG IV (20:18)
[2023-06-15] VITALS (10 sets, daily range): BP systolic 145–147; BP diastolic 68–72; PULSE 66–130; RESP 20; TEMP 36.5–36.9; O2SAT 95–96
[2023-06-15] MEDS: CEFTRIAXONE 1,000 MG in 0.9 % SODIUM CHLORIDE 50 ML 100 MG IV ×2 (02:04→13:10)
[2023-06-15 05:24] LABS: Basophils Percent Auto 0.5 % (0.2-2.0); Eosinophils Absolute Auto 0.1 10^3/uL (0.0-0.7); Eosinophils Percent Auto 1.6 % (0.9-7.0); Hematocrit 35.5 % (42.0-54.0); Hemoglobin 11.9 g/dL (14.0-18.0); Immature Granulocytes Abs Auto 0.01 10^3/uL (0.00-0.03); Immature Granulocytes Pct Auto 0.2 % (0.0-0.5); Lymphocytes Absolute Auto 1.3 10^3/uL (1.2-3.8); Lymphocytes Percent Auto 19.5 % (20.5-60.0); Mean Corpuscular HGB Conc 33.5 g/dL (29.9-35.2); Mean Corpuscular Hemoglobin 32.1 pg (25.9-34.0); Mean Corpuscular Volume 95.7 fL (80.0-94.0); Mean Platelet Volume 10.1 fL (9.5-13.5); Monocytes Absolute Auto 0.8 10^3/uL (0.3-0.8); Neutrophils Absolute Auto 4.3 10^3/uL (1.4-6.5); Neutrophils Percent Auto 66.2 % (43.0-75.0); Platelet Count 243 10^3/uL (150-450); Red Blood Count 3.71 10^6/uL (4.70-6.10); Red Cell Distribution Width 13.7 % (11.0-15.0); White Blood Count 6.4 10^3/uL (4.0-11.0)
[2023-06-15] MEDS: ACETAMINOPHEN 325 MG TABLET 650 MG PO (05:32)
[2023-06-15 05:41] LABS: Alanine Aminotransferase 81 U/L (16-63); Albumin Globulin Ratio 0.8; Albumin Level 2.8 g/dL (3.4-5.0); Alkaline Phosphatase 56 U/L (46-116); Anion Gap 10.2; Aspartate Amino Transferase 45 U/L (15-37); BUN Creatinine Ratio 15.1; Bilirubin Total 0.2 mg/dL (0.2-1.0); Chloride 109 mmol/L (98-107); Estimated GFR (African America >60 (>=60); Estimated GFR (Non-African Ame >60 (>=60); Globulin 3.4 g/dL; Glucose 97 mg/dL (74-106); Potassium 4.2 mmol/L (3.5-5.1); Sodium 140 mmol/L (136-145); Total Protein 6.2 g/dL (6.4-8.2)
[2023-06-15] MEDS: REGADENOSON 0.4 MG/5 ML SYRINGE IV (08:13)
--- NOTE | 2023-06-15 08:27 | NUTR.NU ---
Breakfast order placed at same time as NPO order received. DTR confirmed with nurse ([phone]) that it is okay to send breakfast to patient.
[2023-06-15] MEDS: GUAIFENESIN 600 MG TAB.ER.12H PO (08:41)
[2023-06-15] MEDS: ENOXAPARIN SODIUM 40 MG/0.4 ML SYRINGE SUBQ (08:41)
[2023-06-15] MEDS: ASPIRIN 325 MG TABLET PO (08:42)
[2023-06-15] MEDS: L. ACIDOPHILUS/L.BULGARICUS 1 PACKET GRAN.PACK PO (08:42)
[2023-06-15] MEDS: METOPROLOL TARTRATE 50 MG TABLET PO (08:42)
[2023-06-15 09:02] LABS: Estimated Average Glucose 88 mg/dL; Glycohemoglobin A1C 4.7 % (4.5-6.2)
[2023-06-15] MEDS: PANTOPRAZOLE SODIUM 40 MG VIAL IV (09:09)
[2023-06-15 09:12] LABS: Chol HDL Ratio 2.6; Cholesterol 109 mg/dL (<=200); HDL Cholesterol 42 mg/dL (40-60); LDL Cholesterol Calculated 57.8 mg/dL; Thyroid Stimulating Hormone 1.376 uIU/mL (0.358-3.740); Triglycerides 46 mg/dL (<=150); VLDL CHOLESTEROL 9.2 mg/dL
[2023-06-15 09:19] LABS: Troponin I High Sensitivity 146.2 pg/mL (4.0-76.1)
[2023-06-15] MEDS: IPRATROPIUM/ALBUTEROL SULFATE 3 ML AMPUL.NEB IH (10:41)
--- NOTE | 2023-06-15 11:20 | CM.NOTE ---
Rounds made with Dr. Ludwig, awaiting Lexiscan results and possible discharge this afternoon.
--- NOTE | 2023-06-15 14:02 | P.PN_ITS ---
Progress Note: Subjective Subjective Interval history: patient is a 72-year-old male with past medical history of hypertension, rheumatoid arthritis, chronic obstructive pulmonary disease requiring continuous oxygen at 2 L nasal cannula, ex-smoker, hyperlipidemia. Patient stated that yesterday he went to [employer] and developed a sudden onset of shortness of breath with some chest pressure. The chest pain or pressure was exacerbated by coughing of which she has noted some increased sputum production over the last couple days. He also has become more short of breath with exertion and when he is out feeding and watering his dogs this is when he notices some fatigue and shortness of breath. He said he increased his oxygen from 2-3 L and hopes that that would help with his symptoms. He also reports difficulty getting his home oxygen in the house and says all he has is a portable oxygen tank. Sodium is uncertain whether the patient has actually been receiving his oxygen therapy. He does note that he has been compliant with his Anoro and denies having to use a rescue inhaler. He denies any fevers chills. He does now he follows with a teacher hearing impaired, he also notes he has a history of prostate cancer and has been taking a chemotherapy agent for this. He denies seeing a lighting engineer. He states this morning that his pain has improved and his shortness of breath has improved. I discussed with him the increase in his troponin and he states that he has seen a revenue stamp clerk 2-3 years ago and was told that his heart was fine. He denies ever having a recent stress test or cardiac catheterization. He has a history of smoking but quit when he was [age]. He has been compliant with his statin medications. Cardiology came yesterday for consultation and recommended lexiscan stress test, overall echo was fine. This morning he denies any issues or complaints and states he has improved since admission, no further chest pain. Would like to go home to feed his dogs. Exam Narrative Exam Narrative: General: Patient is alert, and oriented to person, place and time with normal affect, proper hygiene Skin: no visible rashes, or ulcers Head: atraumatic, acephalic Eyes: PERRLA, no nystagmus present, conjunctiva clear, no scleral icterus Ears: diminished gross auditory acuity Nose: symmetric, no discharge, no maxillary or frontal sinus tenderness Heart: Normal rate and rhythm, no murmurs/rubs/gallops Lungs: audible wheezes, no crackles Abdomen: Normal audible bowel sounds, no distension, No palpable masses, no organomegaly, no rebound/guarding/ or rigidity Musculoskeletal: muscle atrophy noted, ROM is limited due to being in hospital bed, no swelling bilateral lower extremities Vascular: Normal carotid, radial, femoral, posterior tibial, and dorsalis pedis pulses Lymph: no supraclavicular, axillary, or anterior/posterior cervical adenopathy Neuro: CN II-X grossly intact, normal sensation upper and lower extremities Constitutional Vital Signs, click to edit/add: Last Vital Signs Temp 97.7 F 06/15/23 13:12 Pulse 83 06/15/23 14:01 Resp 20 06/15/23 13:12 BP 145/68 H 06/15/23 13:12 Pulse Ox 95 06/15/23 13:12 O2 Del Method Nasal Cannula 06/15/23 13:12 O2 Flow Rate 2 06/15/23 13:12 Progress Note: Objective Labs Labs: Short CBC 06/15/23 Range/Units 04:41 WBC 6.4 (4.0-11.0) 10^3/uL Hgb 11.9 L (14.0-18.0) g/dL Hct 35.5 L (42.0-54.0) % Plt Count 243 (150-450) 10^3/uL BMP 06/15/23 04:41 Sodium 140 Potassium 4.2 Chloride 109 H Carbon Dioxide 25.0 BUN 16.0 Creatinine 1.06 Glucose 97 Calcium 8.0 L Liver Function 06/15/23 Range/Units 04:41 Total Bilirubin 0.2 (0.2-1.0) mg/dL AST 45 H (15-37) U/L ALT 81 H (16-63) U/L Alkaline Phosphatase 56 (46-116) U/L Albumin 2.8 L (3.4-5.0) g/dL Progress Note: A&P Assessment and Plan (1) Bilateral upper lobe community acquired pneumonia: Assessment and Plan: will continue duoneb treatments, Azith and rocephin. continue oxygen therapy, inhaler (2) COPD (chronic obstructive pulmonary disease): Assessment and Plan: will continue duoneb treatments, Azith and rocephin. continue oxygen therapy, viral panel negative (3) Hypertension: Assessment and Plan: continue metoprolol, will consider addition of lisinopril Qualifiers: Hypertension type: primary hypertension Qualified Code(s): I10 - Essential (primary) hypertension (4) Elevated troponin: Assessment and Plan: most likely NSTEMI type 2, echo showed preserved EF, otherwise normal, given aspirin, loading dose of lipitor 80mg PO once, lipid panel and TSH normal. elevated proBNP from COPD. EKG was unremarkable. no events on telemetry. Normal CTA, no PE's seen. awaiting final result on Lexiscan stress test; last result has decreased (5) Acute CHF (congestive heart failure): Assessment and Plan: resolved, elevated proBNP from pulmonary issues (6) Rheumatoid arthritis: Assessment and Plan: continue methotrexate Qualifiers: Rheumatoid arthritis location: multiple sites Rheumatoid factor presence: with rheumatoid factor Qualified Code(s): M05.79 - Rheumatoid arthritis with rheumatoid factor of multiple sites without organ or systems involvement Plan patient is full code Will continue Lovenox for deep vein thrombosis prophylaxis Patient is inpatient status and is expected to stay more than two midnights do to his respiratory status and elevated cardiac enzyme.
--- NOTE | 2023-06-15 15:35 | PM.DS1 ---
DS: Providers Provider Date of admission: 06/14/23 09:23 Primary care physician: Abrahan Guerin MD Consults: 06/14/23 09:15 Physical Therapy Eval and Treat Routine Reason for consultation: weakness Has provider been notified: No 06/14/23 09:17 Occupational Therapy Eval and Treat Routine Reason for consultation: weakness Has provider been notified: No 06/14/23 09:22 Consult to Cardiology Routine Consulting Provider: Trevor Cox Reason for consultation: elevated trop's Discharging clinician: Falguni Ludwig DS: Diagnosis Discharge Diagnosis (1) Bilateral upper lobe community acquired pneumonia: (2) COPD (chronic obstructive pulmonary disease): (3) Hypertension: Qualifiers: Hypertension type: primary hypertension Qualified Code(s): I10 - Essential (primary) hypertension (4) Elevated troponin: (5) Acute CHF (congestive heart failure): (6) Rheumatoid arthritis: Qualifiers: Rheumatoid arthritis location: multiple sites Rheumatoid factor presence: with rheumatoid factor Qualified Code(s): M05.79 - Rheumatoid arthritis with rheumatoid factor of multiple sites without organ or systems involvement DS: Summary Hospital Course Hospital Course: please see progress note dated for today, only update is that Lexiscan stress test was negative. Has close follow up with PCP, will be discharged home on levaquin 500mg daily x 7 days, recommended he start daily baby aspirin and lisinopril 5mg daily in addition to his metoprolol for HTN. He is more than ready to leave, was planning to leave AMA if test was not read today as he was not interested in staying for any further cardiac intervention including a heart cath. Elevated trops type 2 NSTEMI. continue continuous oxgyen at 2 L NC. Return with any worsening symptoms. Status at Discharge Functional status at discharge: independent ambulation Overall status at discharge: patient is progressing back to baseline Time Spent with Patient Time attestation: Total time spent providing and/or coordinating discharge services: Time spent: greater than 30 minutes Exam Narrative Exam Narrative: no changes in physical exam at the time of discharge when compared to the progress note dated today Constitutional Vital Signs, click to edit/add: Last Vital Signs Temp 97.7 F 06/15/23 13:12 Pulse 83 06/15/23 14:01 Resp 20 06/15/23 13:12 BP 145/68 H 06/15/23 13:12 Pulse Ox 95 06/15/23 13:12 O2 Del Method Nasal Cannula 06/15/23 13:12 O2 Flow Rate 2 06/15/23 13:12 DS: Data Data Completed and Pending Labs on day of discharge: Labs from last 24 hours 06/15/23 06/13/23 04:41 18:35 WBC 6.4 RBC 3.71 L Hgb 11.9 L Hct 35.5 L MCV 95.7 H MCH 32.1 MCHC 33.5 RDW 13.7 Plt Count 243 MPV 10.1 Neut % (Auto) 66.2 Lymph % (Auto) 19.5 L [place] % (Auto) 12.0 Eos % (Auto) 1.6 Baso % (Auto) 0.5 Neut # (Auto) 4.3 Lymph # (Auto) 1.3 [place] # (Auto) 0.8 Eos # (Auto) 0.1 Baso # (Auto) 0.0 Abs Immat Gran (auto) 0.01 Imm/Tot Granulo (auto) 0.2 Sodium 140 Potassium 4.2 Chloride 109 H Carbon Dioxide 25.0 Anion Gap 10.2 BUN 16.0 Creatinine 1.06 Est GFR ( Amer) >60 Est GFR (Non-Af Amer) >60 BUN/Creatinine Ratio 15.1 Glucose 97 Estimat Average Glucose 88 Hemoglobin A1c 4.7 Calcium 8.0 L Total Bilirubin 0.2 AST 45 H ALT 81 H Alkaline Phosphatase 56 Troponin I High Sens 146.2 H* Total Protein 6.2 L Albumin 2.8 L Globulin 3.4 Albumin/Globulin Ratio 0.8 Triglycerides 46 Cholesterol 109 LDL Cholesterol, Calc 57.8 VLDL Cholesterol 9.2 HDL Cholesterol 42 Cholesterol/HDL Ratio 2.6 TSH 1.376 SARS-CoV-2 RNA (MIGUEL) Not detected Preliminary micro results at discharge 06/14/23 11:02 Group A Streptococcus Screen ([facility]) - Preliminary Throat Discharge Plan Discharge Disposition: Home, Self-Care Condition: Fair Discharge Medications: New lisinopril 5 mg tablet 5 mg PO DAILY 30 Days Qty: 30 0RF levofloxacin 500 mg tablet 500 mg PO DAILY 7 Days Qty: 7 0RF aspirin 81 mg capsule 81 mg PO DAILY 30 Days Qty: 30 0RF Continued albuterol sulfate 2.5 mg /3 mL (0.083 %) solution for nebulization 2.5 mg inhalation Q6H PRN (Reason: shortness of breath or wheezing) bicalutamide 50 mg tablet 50 mg PO DAILY Anoro Ellipta 62.5-25 mcg/actuation blister with device 1 inh INHALATION DAILY metoprolol tartrate 50 mg tablet 50 mg PO DAILY atorvastatin [Lipitor] 10 mg tablet 10 mg PO QPM Trexall 10 mg tablet 10 mg PO QWEEK Activity: increase activity as tolerated and wear oxygen at all times Diet: advance to your usual diet Patient Instructions: Pneumonia (DC) Forms: Portal Instructions Follow Up Appointments: Follow up appt. with Dr. Guerin on @ 9am Office#: [phone]
--- NOTE | 2023-06-15 16:10 | PCN_ITS ---
CARDIAC STRESS TEST ? Requesting Physician:? Procedure Date:? 06/15/2023 ? The patient underwent a Lexiscan nuclear stress test for evaluation of chest pain.? ? The baseline heart rate was 78 per minute, in sinus rhythm, with a maximum heart rate achieved of 109 beats per minute, achieving sinus rhythm with expected rate.? The resting blood pressure was 162/82 mm/Hg which achieved a maximum of 178/80 mm/Hg.? ? Baseline EKG was noted to be sinus rhythm with PACs and occasional PVCs that were seen.? ? With infusion of Lexiscan, there was no AV block noted.? No evidence of ischemia was seen. ? INTERPRETATION: 1.? No EKG evidence of ischemia noted on stress test.? 2.? Radiology to interpret the perfusion imaging. MEGHA
== END 2023-06-15 16:10 | disposition home or self-care (01) | DRG 193 ==
LOC: ER 21:10 → MS 21:57
PROVIDERS: Internal Medicine; Physician Assistant; Admitting Provider Family Medicine; Emergency Provider Emergency Medicine Emergency Medical Services; PCP Family Medicine; Visit Provider Family Medicine
DX: J18.9 Pneumonia, unspecified organism (principal); I21.A1 Myocardial infarction type 2; J44.0 Chronic obstructive pulmonary disease with (acute) lower respiratory infection; J44.1 Chronic obstructive pulmonary disease with (acute) exacerbation; R77.8 Other specified abnormalities of plasma proteins; I11.0 Hypertensive heart disease with heart failure; I50.9 Heart failure, unspecified; M05.79 Rheumatoid arthritis with rheumatoid factor of multiple sites without organ or systems involvement; E78.5 Hyperlipidemia, unspecified; C61 Malignant neoplasm of prostate; Z99.81 Dependence on supplemental oxygen; Z79.899 Other long term (current) drug therapy; Z20.822 Contact with and (suspected) exposure to COVID-19; Z87.891 Personal history of nicotine dependence; Z88.0 Allergy status to penicillin; Z88.8 Allergy status to other drugs, medicaments and biological substances
CPT/HCPCS: 36415; 71045; 71275; 78452; 80053; 80061; 83036; 83605; 83880; 84443; 84484; 85025; 85378; 87040; 87070; 87205; 87635; 87880; 93005; 93017; 93306; 94640; 94761; 96365; 96366; 96367; 96368; 96372; 96375; 96376; 97161; 97165; 99285; A9500; G0378; J0456; J2785; Q3014; Q9967

== ENCOUNTER 2023-07-09 10:52 | Emergency (ER) | payer MEDICARE, SELFPAY ==
[2023-07-09 11:00] VITALS: PULSE 78; RESP 18; TEMP 36.4; O2SAT 98; BMI 23.6
--- NOTE | 2023-07-09 11:11 | ED.GENADUL1 ---
HPI - General Adult General Chief complaint: Wound/Laceration Stated complaint: dog bite to face Time Seen by Provider: 07/09/23 11:10 Source: patient Mode of arrival: walk-in Limitations: no limitations History of Present Illness HPI narrative: Patient is a 72-year-old male who is presenting to the Emergency Room after a dog bite to his lower lip and a scratch to his left lateral neck. Patient has a significant dog bite/lip avulsion to his lower lip, jagged, stellate, 5 x 2 cm. Patient also has a superficial abrasion/laceration to the left side of his neck, 3 x 1 cm. Patient states his tetanus shot is in the last 5-10 years. Patient is not actively bleeding. Patient is not taking any blood thinners at this time. Patient is not diabetic. Patient was brought to Emergency Room by family members. . All systems are negative except as noted/marked. All systems reviewed and otherwise negative. . Nurses note and vital signs reviewed and patient is not hypoxic. General: The patient appears well and in no apparent distress. Patient is resting comfortably on cart. Patient is not toxic, lethargic, or listless Skin: Warm, dry, no pallor noted. There is no rash noted. No petechiae, purpura. Patient has a jagged, stellate 5 x 1 cm complex laceration/lip avulsion to the mid-lower lip. This is a complete laceration through his lip and lower chin soft tissue. Patient has a superficial abrasion/laceration 3 x 1 cm to the left side of his neck. There is no hematoma, ecchymosis, swelling, or any signs of puncture to the left side of his neck. No pain to the superficial laceration to the left side of his neck. Head: Normocephalic, CT scan description. Patient has no other intraoral trauma, no trauma to his tongue, no active bleeding, patient is tolerating secretions without difficulty. Patient has no airway compromise, no stridor, no difficulty breathing. Eye: Normal conjunctiva, no drainage, EOMI. PERRL Ears, Nose, Mouth, and Throat: oral mucosa is moist. Nares patent. Mouth without vesicles. Cardiovascular: Regular Rate and Rhythm, no murmur, gallop, rub Respiratory: Patient is in no distress, no accessory muscle use, lungs are clear to auscultation, no wheezing, rales or rhonchi Back: non-tender, no CVA tenderness bilaterally to percussion. No CT LS midline pain GI: soft, no tenderness to palpation, no masses appreciated. No rebound, guarding, or rigidity noted. No flank pain bilateral, No distention Musculoskeletal: Patient has full range of motion of all of the extremities, no motor, sensory, or focal neurological deficits. Patient has full extremity movement, no other signs of puncture, laceration or injury. Neurological: A&O x3, normal speech Psychiatric: Cooperative Related Data Home Medications Medication Instructions Recorded Confirmed albuterol sulfate 2.5 mg/3 mL 2.5 mg inhalation Q6H PRN 03/25/23 06/14/23 (0.083 %) solution for nebulization shortness of breath or wheezing bicalutamide 50 mg tablet 50 mg PO DAILY 03/25/23 06/13/23 umeclidinium 62.5 mcg-vilanterol 1 inh inhalation DAILY sob 03/25/23 06/14/23 25 mcg/actuation powdr for inhalation (Anoro Ellipta) metoprolol tartrate 50 mg tablet 50 mg PO DAILY 06/13/23 06/13/23 atorvastatin 10 mg tablet (Lipitor) 10 mg PO QPM 06/14/23 06/14/23 methotrexate sodium 10 mg tablet 10 mg PO QWEEK 06/14/23 06/14/23 (Trexall) Previous Rx's Medication Instructions Recorded aspirin 81 mg capsule 81 mg PO DAILY 30 days #30 caps 06/15/23 levofloxacin 500 mg tablet 500 mg PO DAILY 7 days #7 tabs 06/15/23 lisinopril 5 mg tablet 5 mg PO DAILY 30 days #30 tabs 06/15/23 Allergies Allergy/AdvReac Type Severity Reaction Status Date / Time Penicillins Allergy Severe Verified 06/13/23 20:21 prednisone Allergy Intermediate Rash Verified 06/13/23 20:21 [facility] Medical History (Updated 07/09/23 @ 11:46 by Toby Stewart MD) Surgical History Social History Smoking status: Former smoker Non-prescribed substance use: denies use Previous occupational history: none Highest level of school completed/degree received: 11th grade Are you now , , , , never or living with a partner: refused to answer In a typical week, how many times do you talk on the telephone with family, friends, or neighbors: 3 or more times per week How often do you get together with friends or relatives: 3 or more times per week How often do you attend mandaen or hinduism services: 4 or more times per year Do you belong to any clubs or organizations such as mandaen groups unions, [employer] or athletic groups, or school groups: no Total score: 2 Score interpretation: A score of greater than or equal to 2 indicates the lowest level of social isolation. Little interest or pleasure in doing things: not at all Feeling down, depressed, or hopeless: not at all Feel stressed/tense/nervous/anxious/difficulty sleeping: not at all Due to disability, difficulty making decisions: No Do you think of yourself as: straight/heterosexual Gender Identity: male Exam Constitutional Vital Signs, click to edit/add: Last Vital Signs Temp 97.6 F 07/09/23 11:00 Pulse 78 07/09/23 11:00 Resp 18 07/09/23 11:00 Pulse Ox 98 07/09/23 11:00 O2 Del Method Room Air 07/09/23 11:00 Course Vital Signs Vital signs: Vital Signs Temperature 97.6 F 07/09/23 11:00 Pulse Rate 78 07/09/23 11:00 Respiratory Rate 18 07/09/23 11:00 Pulse Oximetry 98 07/09/23 11:00 Oxygen Delivery Method Room Air 07/09/23 11:00 Temperature 97.6 F 07/09/23 11:00 Pulse Rate 78 07/09/23 11:00 Respiratory Rate 18 07/09/23 11:00 Pulse Oximetry 98 07/09/23 11:00 Oxygen Delivery Method Room Air 07/09/23 11:00 Medical Decision Making MDM Narrative Medical decision making narrative: 1100 patient was seen immediately when he is placed in trauma room 5. Patient has a significant lip laceration to his lower lip, and superficial abrasion to left side of his neck. Patient had IV established, patient's tetanus is up-to-date. Patient will be given Ancef prophylactically. 4340 I was able to speak to a plastic surgeon in [facility], Dr. Jose. Through secure texting, he was able to visualize the pictures of the lacerations to the lip and superficial abrasion to the left side of his neck. He agreed with transfer to [facility], recommending patient go to the emergency room for transfer. The case was discussed with Dr. Jose briefly. I spoke to Dr Guillermo, ER physician at [facility]. He agreed with transfer from Emergency Room to Emergency Room, since this is what the plastic surgeon Dr Jose. recommended in the plastic surgeon will be seeing the patient in the Emergency Room. There is a friend at bedside, she is the dog agency owner. She will drive the patient directly to [facility]. Critical care time 35 minutes exclusive from separate billable procedures that were performed. The following was considered in the determination of critical care but not limited to the level of medical decision making, intensive cardiac and/or respiratory monitoring, frequent vital sign monitoring, evaluation of laboratory studies, evaluation of radiographic studies, oxygen monitoring, and constant monitoring and speaking to family at bedside. Animal bite report has been filed as well. Discharge Plan Discharge Chief Complaint: Wound/Laceration Clinical Impression: Dog bite, Complicated laceration of lip, Abrasion of neck Patient Disposition: [facility] Time of Disposition Decision: 11:46 Discharge Location: [facility] Discharge location: ER to ER; [place] [facility] to [facility] ER, plastics Dr Jose Condition: Serious Mode of Transportation: Private Vehicle
--- NOTE | 2023-07-09 11:12 | PC.NURSE ---
pt was dropped off per friend. pt was training a dog when dog bite pt bottom lip and left side of neck. avulsion of bottom lip 5x2, bleeding is controlled. bite to left side of neck is 3x1. pt did bring in avulsed tissue. tissue was placed in bag and placed on ice. tissue was labeled with pt name and date.
[2023-07-09] MEDS: CEFAZOLIN SODIUM/DEXTROSE,ISO 1 GM/50 ML IV.SOLN IV (11:23)
== END 2023-07-09 12:38 | disposition short-term general hospital (02) ==
PROVIDERS: Emergency Provider Emergency Medicine; PCP Family Medicine
DX: S01.551A Open bite of lip, initial encounter (principal); S10.97XA Other superficial bite of unspecified part of neck, initial encounter; W54.0XXA Bitten by dog, initial encounter; Z79.899 Other long term (current) drug therapy; Z87.891 Personal history of nicotine dependence
CPT/HCPCS: 96365; 99285

== ENCOUNTER 2023-11-04 08:27 | Outpatient (OUT) | payer MEDICARE, SELFPAY ==
--- NOTE | 2023-11-04 09:29 | RESP.RT ---
See scanned 6MWT in chart
--- NOTE | 2023-11-08 07:17 | W.PM.PROCNOT ---
Date of procedure: 11/08/23 Procedure: 6-Minute Walk Test Indication: Dyspnea Ordering physician: Dr. Guerin Baseline data: Initial blood pressure: 178/94 Initial heart rate: 75 Initial oxygenation: SpO2 97% on room air. Initial Paola score: 0.5 MMRC: 1 Procedure: A 6-Minute Walk Test was initiated according to standard protocol. The patient ambulated for a total of 6 minutes with the lowest documented SpO2 measured at 92% on room air with a maximum heart rate of 108. The maximum Paola score was 7. Symptoms reported: Dyspnea. During recovery, blood pressure was 143/108 with a heart rate of 95. SpO2 was 97% on room air, with Paola score 3. Total number of stops: 0. Total distance walked was 372m, which was 95% of predicted walk distance. Impressions: No ambulatory desaturations. Good walk distance. Reported dyspnea out of proportion to study results. Recommendations: No supplemental O2 required with ambulation based on this study. Clinical correlation required.
== END 2023-11-04 08:28 | disposition home or self-care (01) ==
LOC: CARD 08:28
PROVIDERS: PCP Family Medicine; Visit Provider Family Medicine
DX: J44.9 Chronic obstructive pulmonary disease, unspecified (principal)
CPT/HCPCS: 94618

== ENCOUNTER 2024-03-06 18:33 | Inpatient (IN) | payer MEDICARE, SELFPAY ==
[2024-03-06] VITALS (26 sets, daily range): BP systolic 99–218; BP diastolic 51–115; PULSE 98–143; TEMP 37.4–39.8; O2SAT 90–95; BMI 26.6; BMI 20.7
--- NOTE | 2024-03-06 18:37 | XR_ITS ---
The [address] [address] Patient Name: ARISTIDES LASSITER MRN: [id number] date: 1950 Sex: M Assigned Patient Location: ER Current Patient Location: ED.MAIN Accession/Order Number: [id number] Exam Date: 03/06/2024 18:58 Report Date: 03/06/2024 20:00 At the request of: PAIGE MANUEL Procedure: XR chest 1V EXAMINATION: XR chest 1V 03/06/2024 4:59 PM PDT HISTORY: SOB TECHNIQUE: Single frontal view of the chest acquired. COMPARISONS: Chest x-ray 06/13/2023. FINDINGS: Lines/tubes/other: None. Heart and mediastinum: The heart and the mediastinum are within normal limits for technique. Bones: No acute osseous abnormality. Lungs: Mild patchy opacification of the right base, new. No pulmonary edema. Pleura: There is no significant pleural effusion or pneumothorax. Other: None. XR/XR chest 1V IMPRESSION: Mild patchy opacification of the right base. Differential includes atelectasis, aspiration, and pneumonia. Recommend follow-up radiograph in 4-6 weeks, allowing sufficient time after appropriate therapy to evaluate for radiographic improvement/resolution. Electronically authenticated by: VIOLA ART Date: 03/06/2024 20:00
--- NOTE | 2024-03-06 18:37 | ECG_ITS ---
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
--- NOTE | 2024-03-06 18:40 | ED.SOB1 ---
HPI - SOB/Dyspnea General Chief Complaint: Shortness of Breath/Dyspnea Stated Complaint: Altered Mental Status Time Seen by Provider: 03/06/24 18:37 Mode of arrival: ambulance History of Present Illness HPI Narrative: 73-year-old male presented to the emergency department by paramedics for shortness of breath. He was apparently at a gas station and was having trouble breathing and they called paramedics who then transported him here. They gave him aerosol treatment and noted that his skin felt warm. He also seemed to be confused to the paramedics but nobody was present to give his baseline. He is unable to provide any accurate history. Related Data Home Medications ?Medication ?Instructions ?Recorded ?Confirmed albuterol sulfate 2.5 mg/3 mL 2.5 mg inhalation Q6H PRN 03/25/23 06/14/23 (0.083 %) solution for nebulization shortness of breath or wheezing bicalutamide 50 mg tablet 50 mg PO DAILY 03/25/23 06/13/23 umeclidinium 62.5 mcg-vilanterol 1 inh inhalation DAILY sob 03/25/23 06/14/23 25 mcg/actuation powdr for inhalation (Anoro Ellipta) metoprolol tartrate 50 mg tablet 50 mg PO DAILY 06/13/23 06/13/23 atorvastatin 10 mg tablet (Lipitor) 10 mg PO QPM 06/14/23 06/14/23 methotrexate sodium 10 mg tablet 10 mg PO QWEEK 06/14/23 06/14/23 (Trexall) Previous Rx's ?Medication ?Instructions ?Recorded aspirin 81 mg capsule 81 mg PO DAILY 30 days #30 caps 06/15/23 levofloxacin 500 mg tablet 500 mg PO DAILY 7 days #7 tabs 06/15/23 lisinopril 5 mg tablet 5 mg PO DAILY 30 days #30 tabs 06/15/23 Allergies Allergy/AdvReac Type Severity Reaction Status Date / Time Penicillins Allergy Severe Verified 06/13/23 20:21 prednisone Allergy Intermediate Rash Verified 06/13/23 20:21 Review of Systems ROS Narrative Not able to be obtained, confused [facility] Medical History (Updated 03/06/24 @ 18:49 by Andres Huff MD) Rheumatoid arthritis ?M06.9 - Rheumatoid arthritis, unspecified (ICD-10) Hypertension ?I10 - Essential (primary) hypertension (ICD-10) COPD (chronic obstructive pulmonary disease) ?J44.9 - Chronic obstructive pulmonary disease, unspecified (ICD-10) Hearing loss ?H91.90 - Unspecified hearing loss, unspecified ear (ICD-10) Bite by animal ?T14.8XXA - Other injury of unspecified body region, initial encounter (ICD-10) Surgical History Social History Smoking status: Former smoker Non-prescribed substance use: denies use Previous occupational history: none Highest level of school completed/degree received: 11th grade Are you now , , , , never or living with a partner: refused to answer In a typical week, how many times do you talk on the telephone with family, friends, or neighbors: 3 or more times per week How often do you get together with friends or relatives: 3 or more times per week How often do you attend pentecostal or jewish services: 4 or more times per year Do you belong to any clubs or organizations such as pentecostal groups unions, [employer] or athletic groups, or school groups: no Total score: 2 Score interpretation: A score of greater than or equal to 2 indicates the lowest level of social isolation. Little interest or pleasure in doing things: not at all Feeling down, depressed, or hopeless: not at all Feel stressed/tense/nervous/anxious/difficulty sleeping: not at all Due to disability, difficulty making decisions: No Do you think of yourself as: straight/heterosexual Gender Identity: male Exam Narrative Exam Narrative: Nurses note and vital signs reviewed and patient is not hypoxic. General: The patient appears dyspneic. Skin: Warm, dry, no pallor noted. There is no rash noted. Head: Normocephalic, atraumatic Eye: Normal conjunctiva, no drainage Ears, Nose, Mouth, and Throat: oral mucosa is moist. Nares patent. Cardiovascular: Regular Rate and Rhythm Respiratory: The patient is dyspneic and tachypneic, breath sounds are equal Back: non-tender GI: Soft and nontender Musculoskeletal: The patient has no evidence of calf tenderness, no pitting edema, symmetrical pulses noted bilaterally Neurological: He is able to tell me his name but cannot tell me how old he is or where he is. He does not follow commands well. He is awake and looking around the room. He is alert. Psychiatric: Anxious Constitutional Vital Signs, click to edit/add: Last Vital Signs Temp 103.6 F H 03/06/24 18:51 Pulse 134 H 03/06/24 18:35 Resp 32 H 03/06/24 18:35 BP 218/115 H 03/06/24 18:35 Pulse Ox 92 L 03/06/24 18:42 O2 Del Method Room Air 03/06/24 18:42 Course Vital Signs Vital signs: Vital Signs Temperature 99.4 F 03/06/24 18:35 Pulse Rate 134 H 03/06/24 18:35 Respiratory Rate 32 H 03/06/24 18:35 Blood Pressure 218/115 H 03/06/24 18:35 Pulse Oximetry 95 03/06/24 18:35 Oxygen Delivery Method Room Air 03/06/24 18:35 Temperature 103.6 F H 03/06/24 18:51 Pulse Rate 134 H 03/06/24 18:35 Respiratory Rate 32 H 03/06/24 18:35 Blood Pressure 218/115 H 03/06/24 18:35 Pulse Oximetry 92 L 03/06/24 18:42 Oxygen Delivery Method Room Air 03/06/24 18:42 MDM - SOB/Dyspnea MDM Narrative Medical decision making narrative: Tests are ordered and the patient is signed out to Dr. Harris at change of shift. Differential Diagnosis Differential diagnosis: Likely acute exacerbation of chronic obstructive airways disease, congestive heart failure, community acquired pneumonia and other (COVID, influenza) ECG Data Attestation: I personally reviewed and interpreted this ECG as follows: (EKG on my interpretation shows sinus tachycardia with a rate of 138.) Discharge Plan Discharge Patient Disposition: Still a Patient
--- NOTE | 2024-03-06 18:43 | PC.NURSE ---
O2 pt came in on removed and pt on ra, 92% at this time.
--- OUTSIDE RECORDS SUMMARY | 2024-03-06 18:49 | XMS_ITS | CCD ---
Author Organization [facility] ion [facility] Care Team Providers Care Geneticist Name Role Phone JUDAH ALEJANDRA Primary Care Physician Judah Ledesma Unavailable Unavailable Unavailable Judah Ledesma Unavailable Feng Winston Unavailable Unavailable Janine Haq Unavailable Unavailable ALEJANDRA, DR ROGERS Primary Care Unavailable HAY, DR CONLEY Admitting Unavailable HAY, DR CONLEY Attending Unavailable WEST, DR ARIANA Valentin Consulting Unavailable HAY, DR CONLEY Consulting Unavailable MARKER, DR PATEL Consulting Unavailable KAREN, DR ROGERS Admitting Unavailable ALEJANDRA, DR ROGERS Attending Unavailable ALEJANDRA, DR ROGERS Primary Care Unavailable ALEJANDRA, DR ROGERS Consulting Unavailable Naldo Castillo Admitting Unavailjayde e Catrachito, Dr. Toney Attending Unavailable Alejandra II, Judah Fowler [facility] Care Unavail able Stacy Akbar Referring Unavailable Palmer, Dr. Goran Jackson Referring Charley vailable Alejandra II, Judah Malcolm [facility] Unavail able Palmer, Dr. Goran Jackson Attending Charley vailable [facility] Unavail able McGuinn II, Dr. Jc Ventura Attending Unavailable McGuinn II, Dr. Jc Ventura Referring Unavailable Alejandra II, Judah Fowler [facility] Care Unavail able Piotr, Dr. Loomis Attending Unavailable Piotr, Dr. Loomis Referring Unavailable MD Rodney Julio Emergency Provider [phone] MD Abrahan Sands Primary Care Provider Abrahan Sands Primary Care Unavailable Rodney Julio Attending Unavailable Rodney Julio Admitting Unavailable ABRAHAN SANDS Attending Unavailable ABRAHAN SANDS Primary Care Physician DALIATAN Ritter Referring Unavailable DALIATAN Ritter Primary Care Unavailable Lorenzo STILL Attending Unavailable Lorenzo STILL Attending Unavailable KAT SAUCEDO Attending Unavailab le [place], Bashar X Attending Unavailable NONE, XXXX Referring Unavailable [place], Bashar X Admitting Unavailable [place], Bashar X Attending Unavailable [place], Bashar X Referring Unavailable [place], Bashar X Admitting Unavailable KAT SAUCEDO Admitting Unavailab KAT Singh Attending Unavailab Lorenzo Sotelo Admitting Unavailable Lorenzo STILL Attending Unavailable Hajdari, Astrit H Attending Unavailable NONE, XXXX Referring Unavailable [place], Bashar X Attending Unavailable Lorenzo STILL Attending Unavailable Allergies Allergy Classification Reported Allergen(s) Allergy Type Date of Onset Reaction(s) Facility (13 sources) Penicillin; Translations: [penicillin] Drug Allergy rash [facility] (6 sources) Penicillins; Translations: [Penicillins] Allergy to drug (finding) 3 Anaphylaxis [facility] (1 source) Penicillins Drug allergy (disorder) 3 [facility] (2 sources) predniSONE; Translations: [prednisone] Drug Allergy 3 Difficulty Breathing [facility] (1 source) Penicillins Drug allergy (disorder) 3 [facility] Repository Medications Current Medications Medication Drug Class(es) Dates Sig (Normalized) Sig (Original) albuterol 0.83 mg/ml inhalation solution (15 sources) beta2-Adrenergic Agonist Start: 02-14-2024 take 2.5 mg by inhalation every six hours for wheezing albuterol 0.083% Inh Clarisse 3 mL 2.5 mg, 3 mL, Inhalation, q6hr for wheezing, 60 EA, Refill(s) 11, [facility] #[id number], 177, cm, 02/14/24 10:05:00 EDT, Height/Length Dosing, 78, kg, 02/14/24 10:05:00 EDT, Weight Dosing Start Date: 02/14/24 Status: Ordered Start: 01-05-2024 take 2.5 mg by inhal ation every six hours for wheezing albuterol 0.083% Inh Clarisse 3 mL 2.5 mg, 3 mL, Inhalation, q6hr for wheezing, 60 EA, Refill(s) 0, [facility] #[id number], 177, cm, 01/05/24 17:52:00 EDT, Height/Length Dosing, 73, kg, 01/05/24 17:52:00 EDT, Weight Dosing Start Date: 01/05/24 Status: Ordered Start: 12-27-2023 albuterol 0.08 3% Inh Clarisse 3 mL Refill(s) 0 Start Date: 12/27/23 Status: Ordered Start: 07-05-2023 albuterol 0.08 3% Inh Clarisse 3 mL Refill(s) 0 Start Date: 07/05/23 Status: Ordered Start: 03-02-2019 albuterol Refi lls(s) 0 Start Date: 03/02/19 Status: Ordered 24 hr alfuzosin hydrochloride 10 mg extended release oral tablet (1 source) alpha-Adrenergic Marisa take 1 tablet by mouth once daily alfuzosin 10 mg oral tablet, extended release ; 1 tab(s) orally once a day Quantity: 0 Refills: 0 Ordered: 22-Oct-2022 Eskins, Sarita Generic Substitution Allowed Anoro Ellipta 62.5 mcg-25 mcg inhalation powder (5 sources) Start: 03-02-20 Anoro Ellipta 62.5 mcg-25 mcg inhalation powder 1 inh, Inhalation, Daily, 1 Inhaler(s), Refill(s) 12 Start Date: 03/02/19 Status: Ordered atorvastatin 10 mg oral tablet (11 sources) HMG-CoA Reductase Inhibitor Start: 01-13-20 atorvastatin 10 mg Tab Refills(s) 0 Start Date: 01/13/24 Status: Ordered Start: 07-09-2023 take 10 mg by mouth once daily Atorvastatin Active 10 MG PO Daily July 09, 2023 12:00am Start: 03-02-2019 take 1 tablet by bartolo th at bedtime atorvastatin 10 mg Tab 10 mg = 1 tab(s), Oral, Bedtime, Refills(s) 0 Start Date: 03/02/19 Status: Ordered bicalutamide 50 mg oral tablet (11 sources) Androgen Receptor Inhibitor Start: 12-27-2023 take 1 tablet by mouth every twenty-four hours Casodex 50 mg Tab 50 mg = 1 tab(s), Oral, q24hr, # 90 tab(s), Refills(s) 3, [facility]: [id number], 177, cm, 12/27/23 12:11:00 EDT, Height/Length Dosing, 73, kg, 12/27/23 12:11:00 EDT, Weight Dosing Start Date: 12/27/23 Status: Ordered Start: 07-09-2023 take 50 mg by mouth once daily Bicalutamide Active 50 MG PO Daily July 09, 2023 12:00am Start: 07-05-2023 take 1 tablet by bartolo th every twenty-four hours Casodex 50 mg Tab 50 mg = 1 tab(s), Oral, q24hr, # 90 tab(s), Refills(s) 3, [facility]: [facility][id number], 177, cm, 07/05/23 11:01:00 EDT, Height/Length Dosing, 73.2, kg, 07/05/23 11:01:00 EDT, Weight Dosing Start Date: 07/05/23 Status: Ordered Start: 12-28-2022 take 1 tablet by bartolo th every twenty-four hours Casodex 50 mg Tab 50 mg = 1 tab(s), Oral, q24hr Start Date: 12/28/22 Status: Ordered take 1 tablet by bartolo th once daily Bicalutamide 50 MG Oral Tablet TAKE 1 TABLET DAILY. Quantity: 0 Refills: 0 Ordered: 07-Dec-2022 DO Active take 1 tablet by bartolo th every twenty-four hours bicalutamide 50 mg oral tablet ; 1 tab(s) orally every 24 hours Quantity: 0 Refills: 0 Ordered: 22-Oct-2022 Eskins, Sarita Generic Substitution Allowed Breztri Aerosphere inhalation aerosol (1 source) Start: 02-14-2024 End: 02-08-2025 take 2 puff(s) by inhalation twice daily Breztri Aerosphere inhalation aerosol 2 puff(s), Inhalation, BID for 30 day(s), 10.7 gm, Refill(s) 11, [facility] #[id number], 177, cm, 02/14/24 10:05:00 EDT, Height/Length Dosing, 78, kg, 02/14/24 10:05:00 EDT, Weight Dosing Start Date: 02/14/24 Stop Date: 02/08/25 Status: Ordered enzalutamide 40 mg oral capsule (2 sources) Androgen Receptor Inhibitor Start: 07-31-2022 take 4 capsules by mouth once daily enzalutamide 40 mg oral capsule 160 mg = 4 cap(s), Oral, Daily, # 120 cap(s), Refills(s) 11, Pharmacy: [facility] #[id number], 177, cm, 07/31/22 10:17:00 EDT, Height/Length Dosing, 70.7, kg, 04/27/22 11:46:00 EDT, Weight Dosing Start Date: 07/31/22 Status: Ordered fluticasone / umeclidinium / vilanterol (1 source) Anticholinergic , Corticosteroid, beta2-Adrenergi c Agonist take 1 puff(s) by inhalation once daily Trelegy Ellipta 200 mcg-62.5 mcg-25 mcg/inh inhalation powder ; 1 puff(s) inhaled once a day Quantity: 0 Refills: 0 Ordered: 22-Oct-2022 Jayesh Sarita Generic Substitution Allowed folic acid 1 mg oral tablet (7 sources) Start: 11-07-2019 take 1 tablet by mouth once daily folic acid 1 mg Tab 1 mg = 1 tab(s), Oral, Daily, # 90 tab(s), Refills(s) 0 Start Date: 11/07/19 Status: Ordered folic acid ; ora lly once a day Quantity: 0 Refills: 0 Ordered: 22-Oct-2022 Jayesh Sarita Generic Substitution Allowed latanoprost 0.05 mg/ml ophthalmic solution (9 sources) Prostaglandin Analog Start: 03-02-[address] 0.005% preservative-free ophthalmic solution Refill(s) 0 Start Date: 03/02/19 Status: Ordered Start: 12-13-2014 Latanoprost 0. 005 % Ophthalmic Solution Quantity: 0 Refills: 0 Ordered: 13-Dec-2014 DO Start : 13-Dec-2014 Active lisinopril 5 mg oral tablet (8 sources) Angiotensin Converting Enzyme Inhibitor Start: 07-05-2023 lisinopril 5 mg Tab Refills(s) 0 Start Date: 07/05/23 Status: Ordered losartan potassium 50 mg oral tablet (1 source) Angiotensin 2 Receptor Marisa take 1 tablet by mouth once daily losartan 50 mg oral tablet ; 1 tab(s) orally once a day Quantity: 0 Refills: 0 Ordered: 22-Oct-2022 Esbita, Sarita Generic Substitution Allowed magnesium oxide 400 mg oral tablet (2 sources) Start: 10-23-2022 End: 03-21-2023 take 1 tablet by mouth once daily magnesium oxide 400 mg oral tablet ; 1 tab(s) orally once a day Quantity: 30 Refills: 4 Ordered: 23-Oct-2022 Jaylin Gerard Start: 23-Oct-2022 End: 21-Mar-2023 Generic Substitution Allowed Magnesium Oxide 400 MG CAPS TAKE DIRECTED. Quantity: 0 Refills: 0 Ordered: 07-Dec-2022 DO Active methotrexate 2.5 mg oral tablet (14 sources) Folate Analog Metabolic Inhibitor Start: 12-27-2023 methotrexate 2.5 mg Tab Refills(s) 0 Start Date: 12/27/23 Status: Ordered Start: 07-09-2023 take 10 mg by mouth every week Methotrexate Sodium Active 10 MG PO Q7D July 09, 2023 12:00am Start: 07-05-2023 Trexall 10 mg oral tablet Refills(s) 0 Start Date: 07/05/23 Status: Ordered Start: 03-02-2019 methotrexate 2 .5 mg Tab 2.5 mg = 1 tab(s), Oral, q7day, # 4 tab(s), Refills(s) 0 Start Date: 03/02/19 Status: Ordered take 3 tablets by [facility] every week methotrexate 2.5 mg oral tablet ; 3 tab(s) orally once a week Quantity: 0 Refills: 0 Ordered: 22-Oct-2022 Esbita, Sarita Generic Substitution Allowed oxybutynin chloride 5 mg oral tablet (1 source) Cholinergic Muscarinic Antagonist take 1 tablet by mouth once daily oxybutynin 5 mg oral tablet ; 1 tab(s) orally once a day Quantity: 0 Refills: 0 Ordered: 22-Oct-2022 Esbita, Sarita Generic Substitution Allowed predniSONE 50 mg oral tablet (3 sources) Start: End: take 1 tablet by mouth once daily predniSONE 50 mg Tab 50 mg = 1 tab(s), Oral, Daily, X 5 day(s), # 5 tab(s), Refills(s) 0, Pharmacy: [facility] #[id number], 177, cm, 01/05/24 17:52:00 EDT, Height/Length Dosing, 73, kg, 01/05/24 17:52:00 EDT, Weight Dosing Start Date: 01/05/24 Stop Date: 01/10/24 Status: Ordered Start: 07-05-2023 predniSONE 10 mg Tab Refills(s) 0 Start Date: 07/05/23 Status: Ordered Start: 2022 take 2 tablets by mo uth every twelve hours predniSONE 20 mg oral tablet ; 2 tab(s) orally every 12 hours Quantity: 3 Refills: 0 Ordered: 25-Oct-2022 Feng Winston Start: 25-Oct-2022 Generic Substitution Allowed Trelegy Ellipta 100 mcg-62.5 mcg-25 mcg inhalation powder (2 sources) Start: 01-13-2024 End: 01-07-2025 take 1 puff(s) by inhalation once daily Trelegy Ellipta 100 mcg-62.5 mcg-25 mcg inhalation powder = 1 puff(s), Inhalation, Daily, X 30 day(s), # 28 blister(s), Refills(s) 11, Pharmacy: [facility] #[id number], 177, cm, 01/13/24 9:28:00 EDT, Height/Length Dosing, 75, kg, 01/13/24 9:28:00 EDT, Weight Dosing Start Date: 01/13/24 Stop Date: 01/07/25 Status: Ordered Completed/Discontinued Medications Medication Drug Class(es) Dates Sig (Normalized) Sig (Original) acetaminophen 325 mg / oxyCODONE hydrochloride 5 mg oral tablet (4 sources) Opioid Agonist oxyCODONE-Acetam inophen 5-325 MG Oral Tablet Quantity: 0 Refills: 0 Ordered: 21-Feb-2015 DO Active cephalexin 500 mg oral capsule (4 sources) Cephalosporin Antibacterial Start: 02-12-2015 Cephalexin 500 MG Oral Capsule Quantity: 30 Refills: 0 Ordered: 12-Feb-2015 DO Start : 12-Feb-2015 Active 60 actuat fluticasone propionate 0.25 mg/actuat / salmeterol 0.05 mg/actuat dry powder inhaler (5 sources) Corticosteroid, beta2-Adrenergic Agonist Start: 12-13-2014 Advair Diskus 250-50 MCG/DOSE AEPB Quantity: 0 Refills: 0 Ordered: 13-Dec-2014 DO Start : 13-Dec-2014 Active metoprolol tartrate 50 mg oral tablet (2 sources) beta-Adrenergic Marisa Start: 12-07-2022 take 1 tablet by mouth once daily Metoprolol Tartrate 50 MG Oral Tablet Take 1 tablet daily Quantity: 90 Refills: 0 Ordered: 07-Dec-2022 Jc Everett MD Start : 07-Dec-2022 Active dose change - further refills by PCP Start: 10-23-2022 End: 03-21-2023 take 1 tablet by mouth twice daily metoprolol tartrate 50 mg oral tablet ; 1 tab(s) orally 2 times a day Quantity: 60 Refills: 4 Ordered: 23-Oct-2022 Jaylin Gerard Start: 23-Oct-2022 End: 21-Mar-2023 Generic Substitution Allowed Problems Active Problems Problem Classification Problem Date Documented Date Episodic/Chronic Acute myocardial infarction (6 sources) Acute non-ST segment elevation myocardial infarction; Translations: [Non-ST elevation (NSTEMI) myocardial infarction] Onset: 10-22-2022 10-22-2022 Chronic Comment on above: NON STEMI Allergic reactions (1 source) Allergy status to penicillin; Translations: [Allergy status to penicillin] Onset: 2022 Episodic Cancer of prostate (14 sources) Malignant neoplasm of prostate; Translations: [Malignant tumor of prostate] Onset: 04-27-2022 Chronic Cancer of prostate (13 sources) History of malignant neoplasm of prostate; Translations: [Personal history of malignant neoplasm of prostate] Onset: 2022 08-30-2020 Episodic Cardiac dysrhythmias (7 sources) Paroxysmal supraventricular tachycardia; Translations: [Paroxysmal supraventricular tachycardia] Onset: 2022 Chronic Chronic kidney disease (1 source) Dependence on renal dialysis; Translations: [Dependence on renal dialysis] Onset: 2022 Chronic Chronic obstructive pulmonary disease and bronchiectasis (12 sources) Chronic obstructive lung disease; Translations: [Chronic airway obstruction, not elsewhere classified] Onset: 2022 Chronic Coronary atherosclerosis and other heart disease (9 sources) Acute ischemic heart disease, unspecified; Translations: [History of myocardial infarction] Onset: 10-26-2022 12-28-2022 Chronic Diseases of white blood cells (1 source) Elevated white blood cell count, unspecified; Translations: [Elevated white blood cell count, unspecified] Onset: 2022 Chronic Disorders of lipid metabolism (12 sources) Hyperlipidemia; Translations: [Hyperlipidemia, unspecified] Onset: 2022 11-08-2019 Chronic E Codes: Natural/environment (1 source) Dog bite - wound; Translations: [Bitten by dog, initial encounter] 07-09-2023 Episodic Esophageal disorders (1 source) Gastro-esophageal reflux disease without esophagitis; Translations: [GERD WITHOUT ESOPHAGITIS] Onset: 10-26-2022 Chronic Fever of unknown origin (1 source) Fever, unspecified; Translations: [FEVER UNSPECIFIED] Onset: 10-26-2022 Episodic Genitourinary symptoms and ill-defined conditions (20 sources) Nocturia; Translations: [Nocturia] Onset: 04-27-2022 Episodic Glaucoma (5 sources) Glaucoma; Translations: [Unspecified glaucoma] Chronic Hyperplasia of prostate (20 sources) Benign prostatic hypertrophy with outflow obstruction; Translations: [Benign prostatic hyperplasia with lower urinary tract symptoms] Onset: 04-27-2022 Chronic Malignant neoplasm without specification of site (5 sources) Malignant neoplastic disease; Translations: [Other malignant neoplasm without specification of site] Chronic Nonspecific chest pain (1 source) Chest pain; Translations: [Chest pain, unspecified] Onset: 01-05-2024 Episodic Open wounds of head; neck; and trunk (2 sources) Laceration of lip ; Translations: [Laceration without foreign body of lip, initial encounter] Onset: 07-09-2023 07-09-2023 Episodic Other aftercare (1 source) Other half-way (current) drug therapy; Translations: [OTH [facility]PC CURRENT DRUG THERAPY] Onset: 10-26-2022 Episodic Other diseases of kidney and ureters (2 sources) Urinary tract obstruction; Translations: [Other obstructive and reflux uropathy] Onset: 04-27-2022 Episodic Other ear and sense organ disorders (5 sources) Asymmetrical sensorineural hearing loss; Translations: [Sensorineural hearing loss, asymmetrical] Chronic Other ear and sense organ disorders (5 sources) Sensorineural hearing loss, bilateral; Translations: [Sensorineural hearing loss, bilateral] Chronic Other ear and sense organ disorders (1 source) Unspecified hearing loss, unspecified ear; Translations: [UNS HEARING LOSS UNSPECIFIED EAR] Onset: 10-26-2022 Chronic Other ear and sense organ disorders (1 source) Unspecified sensorineural hearing loss; Translations: [Unspecified sensorineural hearing loss] Onset: 2022 Chronic Other ear and sense organ disorders (1 source) Cochlear implant status; Translations: [Cochlear implant status] Onset: 2022 Chronic Other lower respiratory disease (5 sources) Dyspnea; Translations: [Shortness of breath] Episodic Other lower respiratory disease (3 sources) Shortness of breath; Translations: [SHORTNESS OF BREATH] Onset: 10-21-2022 Episodic Other screening for suspected conditions (not mental disorders or infectious disease) (14 sources) Raised prostate specific antigen; Translations: [Rising PSA following treatment for malignant neoplasm of prostate] Onset: 12-28-2022 03-04-2020 Episodic Peripheral and visceral atherosclerosis (1 source) Peripheral vascular disease, unspecified; Translations: [Peripheral vascular disease, unspecified] Onset: 2022 Chronic Residual codes; unclassified (5 sources) History finding; Translations: [Other specified conditions influencing health status] Episodic Residual codes; unclassified (1 source) Body mass index 20-24 - normal; Translations: [Body Mass Index between 19-24, adult] Episodic Respiratory failure; insufficiency; arrest (adult) (3 sources) Dependence on supplemental oxygen; Translations: [Chronic respiratory failure, unspecified whether with hypoxia or hypercapnia] Onset: 2022 Chronic Rheumatoid arthritis and related disease (13 sources) Rheumatoid arthritis; Translations: [Rheumatoid arthritis, unspecified] Onset: 10-26-2022 11-08-2019 Chronic Screening and history of mental health and substance abuse codes (3 sources) Personal history of nicotine dependence; Translations: [Ex-smoker] Onset: 2022 Episodic Unclassified (1 source) CONTACT W/AND (SUSP) EXPOS COVID-19; Translations: [CONTACT W/AND (SUSP) EXPOS COVID-19] Onset: 10-26-2022 Unclassified (1 source) Bitten by dog, initial encounter; Translations: [Bitten by dog, initial encounter] Onset: 07-09-2023 Past or Other Problems Problem Classification Problem Date Documented Da te Episodic/Chronic Other lower respiratory disease (4 sources) Other forms of dyspnea; Translations: [OTHER FORMS OF DYSPNEA] Onset: 05-22-2022 Episodic Results Test Name Value Interpretation Reference Range Facility Physician Orderon 02-28-2024 Physician Order [id number] Sent order to [id number] [facility] Comment on above: Result Comment: Elec tronically Signed By: Nancy Non Clinical Advisor, Virgilio Lechuga\.br\Date and Time Signed: 02/28/24 14:38 EDT Consent for Treatmenton 01-17 Consent for Treatment [id number] [facility] Heart and Vascular Office/Cl inic Noteon 02-14-2024 Heart and Vascular Office/Clinic Note Chief Complaint testing results History of Present Illness Pulmonary function test which showed severe COPD he underwent 6-minute walk which showed oxygen desaturation with activities and he qualifies for supplemental oxygen 2 L/min. He has been using Trelegy inhaler but he does not like the powder and the disc delivery and he wants a puffer Review of Systems PHQ Score Initial Depression Screen Score: 0 SCORE 12 point system review was done and negative except what mentioned in HPI Physical Exam Vitals & Measurements HR: 60(Peripheral) BP: 178/78 SpO2: 97% HT: 70 in HT: 177 cm WT: 78 kg WT: 171.6 lb BMI: 24.9 General: no distress Skin: warm? , dry? Head: no? trauma, normocephalic? Neck: Trachea midline? , no? adenopathy, no? tenderness Eye: normal? conjunctiva, sclera clear? ENMT: oral mucosa moist? Cardiovascular: regular? rate and rhythm, normal? Respiratory: Lungs CTA? ,respirations non labored? Chest wall: no? deformity. Gastrointestinal: soft? , non distended? , no? tenderness, no? guarding. Extremities: no? deformity, no? trauma Neurological: nonfocal Assessment/Plan 1. COPD mixed type (J44.9: Chronic obstructive pulmonary disease, unspecified) I will continue his regimen with triple therapy bronchodilator, he was given a prescription for breztri. Continue albuterol nebulizer treatment Ordered: albuterol, 2.5 mg, 3 mL, Inhalation, q6hr for wheezing, 60 EA, Refill(s) 11, [facility] #[id number], 177, cm, 02/14/24 10:05:00 EDT, Height/Length Dosing, 78, kg, 02/14/24 10:05:00 EDT, Weight Dosing budesonide/formoterol/glycop yrrolate, 2 puff(s), Inhalation, BID for 30 day(s), 10.7 gm, Refill(s) 11, [facility] #[id number], 177, cm, 02/14/24 10:05:00 EDT, Height/Length Dosing, 78, kg, 02/14/24 10:05:00 EDT, Weight Dosing 2. Chronic respiratory failure (J96.10: Chronic respiratory failure, unspecified whether with hypoxia or hypercapnia) The patient qualifies for supplemental oxygen. He is active and mobile and would benefit from portable oxygen concentrator. He has been working with [employer] and order will be sent Follow-up No qualifying data available 4 months Problem List/Past Medical History Ongoing BPH with urinary obstruction Enlarged prostate with urinary obstruction History of heart attack History of prostate cancer Hyperlipidemia Increasing PSA level after treatment for prostate cancer Nocturia Prostate cancer Rheumatoid arthritis Weak urinary stream Historical No qualifying data Procedure/Surgical History History of radiation therapy (10/18/2006), Colonoscopy, Excision of cataract, Extraction of all maxillary teeth, steel plate in head. Medications albuterol 0.083% Inh Clarisse 3 mL, 2.5 mg= 3 mL, Inhalation, q6hr, PRN, 11 refills atorvastatin 10 mg Tab Breztri Aerosphere inhalation aerosol, 2 puff(s), Inhalation, BID, 11 refills Casodex 50 mg Tab, 50 mg= 1 tab(s), Oral, q24hr, 3 refills lisinopril 5 mg Tab methotrexate 2.5 mg Tab Allergies penicillin (rash) Social History Alcohol - Denies Alcohol Use, 10/19/2018 1-2 times per year, 11/06/2019 Substance Abuse - Denies Substance Abuse, 10/19/2018 Tobacco - Denies Tobacco Use, 08/28/2019 Never (less than 100 in lifetime) Tobacco Use:. Never Smokeless Tobacco Use:. Household tobacco concerns: No. Yes, 12/27/2023 Family History Hypertension: Grandparent. Leukemia: Mother. Immunizations Vaccine Date Status Comments influenza virus vaccine, inactivated 08/05/2022 Recorded SARS-CoV-2 (COVID-19) mRNA BNT-162b2 vax 09/22/2021 Recorded influenza virus vaccine, inactivated 08/26/2021 Recorded SARS-CoV-2 (COVID-19) mRNA BNT-162b2 vax 01/03/2021 Recorded SARS-CoV-2 (COVID-19) mRNA BNT-162b2 vax 12/13/2020 Recorded influenza virus vaccine, inactivated - Not Given Postpone due to refusal influenza virus vaccine, inactivated 06/14/2019 Recorded influenza virus vaccine, inactivated 08/13/2018 Recorded influenza virus vaccine, inactivated 07/18/2018 Recorded influenza, unspecified formulation 08/11/2017 Recorded diphtheria/pertussis, acel/tetanus adult 06/07/2017 Recorded influenza virus vaccine, inactivated 06/07/2017 Recorded influenza virus vaccine, inactivated 11/29/2015 Recorded pneumococcal 23-valent vaccine 03/18/2015 Recorded pneumococcal 13-valent vaccine 01/23/2015 Recorded Normal [facility] Comment on above: Result Comment: Elec tronically Signed By: Swetha MORE, Lm Stahl\.br\Date and Time Signed: 02/14/24 12:12 EDT Physician Orderon 02-14-2024 Physician Order [id number] Normal [facility] Pulmonary Function Studieson 02-05-2024 Pulmonary Function Studies PULMONARY FUNCTION TEST: 01/27/2024 REQUESTING PROVIDER: Satnam Zhao M.D. REASON FOR TESTING: Chronic obstructive pulmonary disease. Spirometry results are acceptable and reproducible. FVC was 2.59 liters or 65% of predicted. FEV1 was 1.22 liters or 41% of predicted with a ratio of 47%. There was significant improvement in the FEV1 and the FVC with the administration of bronchodilators of 19% and 14% from baseline, respectively. Lung volumes showed a total lung capacity of 106% of predicted, residual volume of 183% of predicted with a ratio of 67%. Diffusion capacity for carbon monoxide was 56% of predicted and was adjusted to alveolar volume at 83% of predicted. A six-minute walk test was performed while the patient was ambulating on room air. The patient ambulated a total of 1255 feet or 73% of predicted and had a drop in his oxygen saturation from 96% to 86%. This corrected with supplemental oxygen at 2 liters via nasal cannula. IMPRESSION: Pulmonary function test results are suggestive of a severe degree of obstructive lung disease with the presence of air trapping and a moderate decrease in the diffusion capacity. There was significant response to bronchodilator therapy. Six-minute walk test showed evidence of oxygen desaturation while the patient was ambulating on room air that corrected with supplemental oxygen at 2 liters via nasal cannula. READ BY: Stephanie Simmons Dictated: 01/29/2024 [id number] Transcribed: 02/01/2024 [facility] Comment on above: Result Comment: Elec tronically Signed By: Pavel MORE, Satnam Mcclain\.br\Date and Time Signed: 02/05/24 00:38 EDT Physician Orderon 02-02-2024 Physician Order [id number]#1.00TIFF [facility] Consent for Treatmenton 01-16 Consent for Treatment [id number]#1.00TIFF [facility] Pulmonary Function Testson 0 01-27-2024 Pulmonary Function Tests [id number]#1.00TIFF [facility] Respiratory Documentationon 01-27-2024 Respiratory Documentation [id number]#1.00TIFF [facility] Consent for Treatmenton 12-17 Consent for Treatment [id number]#1.00TIFF [facility] Heart and Vascular Office/Cl inic Noteon 01-13-2024 Heart and Vascular Office/Clinic Note Chief Complaint here for ED f/u COPD History of Present Illness This is a 73-year-old man with past medical history significant for previous smoking, COPD, rheumatoid arthritis on methotrexate. He has chronic respiratory failure he uses portable oxygen concentrator which he got few years ago but does not have oxygen concentrator. He was referred to pulmonary clinic for dyspnea on exertion that is been worsening. He is on albuterol nebulizer treatment. He was in the past on maintenance inhaler for COPD He has intermittent cough, occasional wheezing. He is deaf and he has a friend with him who stated that recently he has been trying to get home oxygen concentrator and apparently had a walking test with his primary care physician but he did not qualify? Review of Systems 12 point system review was done and negative except what mentioned in HPI Physical Exam Vitals & Measurements HR: 70(Peripheral) BP: 132/72 SpO2: 99% HT: 70 in HT: 177 cm WT: 75 kg WT: 165 lb BMI: 23.94 General: no distress Skin: warm? , dry? Head: no? trauma, normocephalic? Neck: Trachea midline? , no? adenopathy, no? tenderness Eye: normal? conjunctiva, sclera clear? ENMT: oral mucosa moist? Cardiovascular: regular? rate and rhythm, normal? Respiratory: Lungs CTA? ,respirations non labored? Chest wall: no? deformity. Gastrointestinal: soft? , non distended? , no? tenderness, no? guarding. Extremities: no? deformity, no? trauma Neurological: nonfocal Assessment/Plan 1. COPD mixed type (J44.9: Chronic obstructive pulmonary disease, unspecified) Ordered: fluticasone/umeclidinium/ruslan anterol, = 1 puff(s), Inhalation, Daily, X 30 day(s), # 28 blister(s), Refills(s) 11, Pharmacy: [facility] #[id number], 177, cm, 01/13/24 9:28:00 EDT, Height/Length Dosing, 75, kg, 01/13/24 9:28:00 EDT, Weight Dosing Pulmonary Function Testing Pulmonary Function Testing 2. Rheumatoid arthritis (M06.9: Rheumatoid arthritis, unspecified) I will obtain pulmonary function test with walking test as well as nocturnal oximetry testing to evaluate need for home oxygen. His dyspnea is related to COPD which is likely severe, unclear if there is component of rheumatoid lung disease. Depending on his PFT testing will reevaluate if CT chest is needed I discussed with him that he needs to stay on maintenance bronchodilators and Trelegy was ordered. Continue albuterol nebulizers as needed Follow-up No qualifying data available 4 wks Problem List/Past Medical History Ongoing BPH with urinary obstruction Enlarged prostate with urinary obstruction History of heart attack History of prostate cancer Hyperlipidemia Increasing PSA level after treatment for prostate cancer Nocturia Prostate cancer Rheumatoid arthritis Weak urinary stream Historical No qualifying data Procedure/Surgical History History of radiation therapy (10/18/2006), Colonoscopy, Excision of cataract, Extraction of all maxillary teeth, steel plate in head. Medications albuterol 0.083% Inh Clarisse 3 mL, 2.5 mg= 3 mL, Inhalation, q6hr, PRN albuterol 0.083% Inh Clarisse 3 mL atorvastatin 10 mg Tab Casodex 50 mg Tab, 50 mg= 1 tab(s), Oral, q24hr, 3 refills lisinopril 5 mg Tab methotrexate 2.5 mg Tab Trelegy Ellipta 100 mcg-62.5 mcg-25 mcg inhalation powder, 1 puff(s), Inhalation, Daily, 11 refills Allergies penicillin (rash) Social History Alcohol - Denies Alcohol Use, 10/19/2018 1-2 times per year, 11/06/2019 Substance Abuse - Denies Substance Abuse, 10/19/2018 Tobacco - Denies Tobacco Use, 08/28/2019 Never (less than 100 in lifetime) Tobacco Use:. Never Smokeless Tobacco Use:. Household tobacco concerns: No. Yes, 12/27/2023 Family History Hypertension: Grandparent. Leukemia: Mother. Immunizations Vaccine Date Status Comments influenza virus vaccine, inactivated 08/05/2022 Recorded SARS-CoV-2 (COVID-19) mRNA BNT-162b2 vax 09/22/2021 Recorded influenza virus vaccine, inactivated 08/26/2021 Recorded SARS-CoV-2 (COVID-19) mRNA BNT-162b2 vax 01/03/2021 Recorded SARS-CoV-2 (COVID-19) mRNA BNT-162b2 vax 12/13/2020 Recorded influenza virus vaccine, inactivated - Not Given Postpone due to refusal influenza virus vaccine, inactivated 06/14/2019 Recorded influenza virus vaccine, inactivated 08/13/2018 Recorded influenza virus vaccine, inactivated 07/18/2018 Recorded influenza, unspecified formulation 08/11/2017 Recorded diphtheria/pertussis, acel/tetanus adult 06/07/2017 Recorded influenza virus vaccine, inactivated 06/07/2017 Recorded influenza virus vaccine, inactivated 11/29/2015 Recorded pneumococcal 23-valent vaccine 03/18/2015 Recorded pneumococcal 13-valent vaccine 01/23/2015 Recorded Normal [facility] Comment on above: Result Comment: Elec tronically Signed By: Swetha MORE, Lm Stahl\.br\Date and Time Signed: 01/13/24 18:07 EDT Physician Orderon 01-13-2024 Physician Order [id number]#1.00TIFF Normal [facility] Discharge Instructionson Discharge Instructions [id number]#1.00TIFF Normal [facility] XR Chest Single Viewon 01-05 XR Chest Single View Exam Date/Time: 01/05/2024 18:41 EDT Reason for Exam: Difficulty breathing Report IMPRESSION: PATCHY RIGHT LUNG BASE OPACITY MAY REPRESENT INFILTRATE AND/OR ATELECTASIS. EXAM: XR Chest Single View History: Difficulty breathing Technique: Portable AP view of the chest. Comparison: 11/06/2019 Findings: Atherosclerotic calcification of the thoracic aorta. The cardiomediastinal silhouette is within normal limits. Patchy opacity in the right lung base. No pneumothorax or pleural effusion . Hyperinflation of the lungs and increased bronchovascular markings suggesting COPD. No acute osseous abnormality. Ordering Provider: Davi Mccall FINAL REPORT Dictated: 01/06/2024 9:29 am Ze Murphy DO Signed (Electronic Signature): 01/06/2024 9:29 am Signed by: Ze Murphy DO Transcribed by: WILBER Technologist: FILI Technical Comments Radiation Dose: Ka,r in mGy = na DAP = na Normal [facility] BMPon 01-05-2024 Anion gap [Moles/Vol] 12 mmol/L Normal 6-16 [facility] Comment on above: Performed By: #### 2 [id number], [id number], 65260301, 2089144, 96058588, 06547557 #### [facility] [address] [place] [address] Calcium [Mass/Vol] 9.3 mg/dL Normal 8.9-11.1 [facility] Comment on above: Performed By: #### 2 578072, 97677084, 29352358, 6316091, 62260903, 23176704 #### [facility] [address] [place] [address] Chloride [Moles/Vol] 107 mmol/L Normal 101-111 [facility] Comment on above: Performed By: #### 2 783315, 19805698, 53315969, 5217939, 20969232, 67934572 #### [facility] [address] [place] [address] CO2 [Moles/Vol] 26 mmol/L Normal 21-[address] [facility] Comment on above: Performed By: #### 2 658235, 33702425, 16845759, 8053823, 14451798, 16624140 #### [facility] [address] [place] [address] Creatinine [Mass/Vol] 0.9 mg/dL Normal 0.5-1.3 [facility] Comment on above: Performed By: #### 2 793120, 94805151, 52533252, 9220144, 46515351, 16157061 #### [facility] [address] [place] [address] Glucose [Mass/Vol] 89 mg/dL Normal 55-199 [facility] Comment on above: Performed By: #### 2 859748, 38034296, 88742969, 0072042, 14068844, 83887347 #### [facility] [address] [place] [address] Potassium [Moles/Vol] 4.3 mmol/L Normal 3.5-5.3 [facility] Comment on above: Performed By: #### 2 676092, 62140010, 64156765, 9174597, 14078635, 35056606 #### [facility] [address] [place] [address] Sodium [Moles/Vol] 141 mmol/L Normal 135-145 [facility] Comment on above: Performed By: #### 2 972430, 67410042, 52092823, 3207716, 52118774, 78824572 #### [facility] [address] [place] [address] Urea nitrogen [Mass/Vol] 18 mg/dL Normal 5-21 [facility] Comment on above: Performed By: #### 2 422612, 80181372, 11680892, 7768189, 42197149, 70072612 #### [facility] [address] [place] [id number] Urea nitrogen/Creatinine [Mass ratio] 20 No Units Normal 10-20 [facility] Comment on above: Performed By: #### 2 495322, 24011419, 76978140, 2889848, 75865552, 66011832 #### [facility] [address] [place] [address] BNPon 4 Natriuretic peptide B (Bld) [Mass/Vol] 68 pg/mL Normal 5-80 [facility] Comment on above: Performed By: #### 2 873478, 29745248, 29916961, 7706816, 00090654, 89267284 #### [facility] [address] [place] [address] CBC w/ Auto Diffon 4 Basophils/100 WBC (Bld) 0.9 % Normal 0.0-2.0 [facility] Comment on above: Performed By: #### 2 843642, 55677435, 36869875, 0719098, 76170819, 51216190 #### [facility] [address] [place] [address] Basophils/Leukocytes Auto (Bld) [Pure # fraction] 0.1 E9/L Normal 0.0-0.2 [facility] Comment on above: Performed By: #### 2 557509, 08797080, 01659033, 8454663, 15064397, 86855525 #### [facility] [address] [place] [address] Eosinophils (Bld) [#/Vol] 0.2 E9/L Normal 0.0-0.5 [facility] Comment on above: Performed By: #### 2 604258, 01168438, 22361939, 1709283, 56070627, 50941093 #### [facility] [address] [place] [address] Eosinophils/100 WBC (Bld) 2.2 % Normal 0.0-8.0 [facility] Comment on above: Performed By: #### 2 927090, 95566758, 65685064, 5455493, 08034890, 67817407 #### [facility] [address] [place] [address] Erythrocyte distribution width (RBC) [Ratio] 14.7 % High 10.9-14.2 [facility] Comment on above: Performed By: #### 2 848580, 27913972, 65745301, 7318405, 85598129, 32207241 #### [facility] [address] [place], [place] [address] Hematocrit (Bld) [Volume fraction] 39.6 % Normal 37.7-49.0 [facility] Comment on above: Performed By: #### 2 230193, 27096365, 51331090, 9706183, 28802599, 56565509 #### [facility] [address] [place] [address] Hemoglobin (Bld) [Mass/Vol] 13.3 g/dL Low 13.5-17.5 [facility] Comment on above: Performed By: #### 2 162353, 44507480, 47977395, 9781263, 73779217, 50194938 #### [facility] [address] [place] [address] Lymphocytes (Bld) [#/Vol] 1.4 E9/L Normal 1.0-4.0 [facility] Comment on above: Performed By: #### 2 563261, 12706541, 61728224, 7985457, 06885774, 26971137 #### [facility] [address] [place] [address] Lymphocytes/100 WBC (Bld) 18.9 % Normal 14.0-50.0 [facility] Comment on above: Performed By: #### 2 803879, 05966888, 24919268, 5674671, 72233338, 39882987 #### [facility] [address] [place] [address] MCH (RBC) [Entitic mass] 32.2 pg Normal 27.0-34.0 [facility] Comment on above: Performed By: #### 2 869065, 51745752, 70249498, 0636958, 99887789, 54040354 #### [facility] [address] [place] [address] MCHC (RBC) [Mass/Vol] 33.7 g/dL Normal 31.4-36.0 [facility] Comment on above: Performed By: #### 2 544790, 34137430, 18833412, 5415295, 80274999, 55373065 #### [facility] [address] [place] [address] MCV (RBC) [Entitic vol] 95.8 fL Normal 80.0-100.0 [facility] Comment on above: Performed By: #### 2 850112, 47672449, 41075188, 0917720, 33451153, 99717117 #### [facility] [address] [place] [address] Monocytes (Bld) [#/Vol] 0.5 E9/L Normal 0.2-1.0 [facility] Comment on above: Performed By: #### 2 009692, 83943556, 56171090, 7670298, 02909390, 96104120 #### [facility] [address] [place] [address] Neutrophils (Bld) [#/Vol] 5.3 E9/L Normal 2.0-7.5 [facility] Comment on above: Performed By: #### 2 470346, 16913876, 17177908, 3473889, 79809014, 82853343 #### [facility] [address] [place] [address] Neutrophils/100 WBC (Bld) 71.3 % Normal 36.0-75.0 [facility] Comment on above: Performed By: #### 2 861267, 74716478, 82337975, 7225651, 19590447, 85366357 #### [facility] [address] [place] [address] Platelet mean volume (Bld) [Entitic vol] 7.8 fL Normal 6.4-10.8 [facility] Comment on above: Performed By: #### 2 615531, 77938008, 99344363, 7533145, 86189377, 11189327 #### [facility] [address] [place] [address] Platelets (Bld) [#/Vol] 327.0 E9/L Normal 150.0-500. 0 [facility] Comment on above: Performed By: #### 2 510052, 79231114, 43382103, 2120455, 42334988, 30562471 #### [facility] [address] [place] [address] RBC (Bld) [#/Vol] 4.1 E12/L Low 4.3-5.9 [facility] Comment on above: Performed By: #### 2 657801, 23156038, 57828671, 8165917, 61872336, 72864692 #### [facility] [address] [place] [address] WBC corrected for nucl RBC Auto (Bld) [#/Vol] 7.4 E9/L Normal 4.0-11.0 [facility] Comment on above: Performed By: #### 2 034552, 78281259, 86424904, 5072860, 39540231, 00263669 #### [facility] [address] [place] [address] CHEMISTRYOrdered By: SYSTEM SYSTEM on 01-05-2024 Troponin 10.20 pg/mL Low 15.90 - 38.40 pg/mL [facility] Comment on above: Interpretive Data: T he 95% CI (Confidence Interval) PPV (Positive Predictive Value) for myocardial infarction in females is 38 pg/mL, in males 51 pg/mL. The results should be used in conjunction with clinical conditions of myocardial infarction. (Access High Sensitivity Troponin I Instructions For Use, Caryl Sparta, May 2018) Anion gap [Moles/Vol] 12 mmol/L Normal 6 - 16 mEq/L [facility] Calcium [Mass/Vol] 9.3 mg/dL Normal 8.9 - 11. 1 mg/dL [facility] Chloride [Moles/Vol] 107 mmol/L Normal 101 - 1 11 mmol/L [facility] CO2 [Moles/Vol] 26 mmol/L Normal 21 - 31 mmol/L [facility] Creatinine [Mass/Vol] 0.9 mg/dL Normal 0.5 - 1.3 mg/dL [facility] eGFR 89 mL/min/1.73 m2 Normal >=59mL/min /1.73 m2 [facility] Glucose [Mass/Vol] 89 mg/dL Normal 55 - 199 mg/dL [facility] Potassium [Moles/Vol] 4.3 mmol/L Normal 3.5 - 5.3 mmol/L [facility] Sodium [Moles/Vol] 141 mmol/L Normal 135 - 145 mmol/L [facility] Troponin 10.40 pg/mL Low 15.90 - 38.40 pg/mL [facility] Comment on above: Interpretive Data: T he 95% CI (Confidence Interval) PPV (Positive Predictive Value) for myocardial infarction in females is 38 pg/mL, in males 51 pg/mL. The results should be used in conjunction with clinical conditions of myocardial infarction. (Access High Sensitivity Troponin I Instructions For Use, Caryl Ying, May 2018) Urea nitrogen [Mass/Vol] 18 mg/dL Normal 5 - 21 mg/dL [facility] Urea nitrogen/Creatinine [Mass ratio] 20 mg/mg Normal 10 - 20 [facility] CHEMISTRYOrdered By: River haider on 01-05-2024 Natriuretic peptide B (Bld) [Mass/Vol] 68 pg/mL Normal 5 - 80 pg/mL [facility] COAGULATIONOrdered By: Loy Haywood on 01-05-2024 aPTT Coag (PPP) [Time] 32.1 s Normal 25.1 - 36.5 second(s) [facility] Auto [facility] Comment on above: Interpretive Data: Liz rasmussen 15 days - 4 weeks 1 - 5 months 6 - 11 months 1 - 5 years 6 - 10 years 11 - 17 years PTT Mean: 35.4 (27.6-45.6) Mean: 33.5 (24.8-40.7) Mean: 32.4 (25.1-40.7) Mean: 31.6 (24.0-39.2) Mean: 31.6 (26.9-38.7) Mean: 31.0 (24.6-38.4) Pediatric Reference ranges were obtained from a study by Arian Wild et al. prepared from 1437 samples obtained at 7 different centers using the same coagulation reagent and instrumentation as [facility]. Currently there are no coagulation studies available worldwide for children to 14 days, and no normal ranges. Heparin therapeutic range (represented by Anti-Factor Xa activity of 0.2 - 0.4 U/mL) corresponds to PTT of 56.6 - 109.0 sec. INR Coag (PPP) [Relative time] 1.04 {INR} Invalid Interpretation Code [facility] Comment on above: Interpretive Data: I NR results are specifically intended to assess patients stabilized on long-term Anticoagulation therapy suggested INR s Less Intensive Anticoagulation 2.0 3.0 Conventional Range 3.0 4.5 PT Coag (PPP) [Time] 11.6 s Normal 9.4 - 1 2.5 second(s) [facility] Comment on above: Interpretive Data: 1 5 days - 4 weeks 1 - 5 months 6 -11 months 1 5 years 6 10 years 11 -17 years Mean: 11.2 (9.5 12.6) Mean: 11.0 (9.7 12.8) Mean: 11.0 (9.8 13.0) Mean: 11.3 (9.9 13.4) Mean: 11.7 (10.0 14.6) Mean: 11.8 (10.0 - 14.1) Pediatric Reference ranges were obtained from a study by Arian Wild et al. prepared from 1437 samples obtained at 7 different centers using the same coagulation reagent and instrumentation as [facility]. Currently there are no coagulation studies available worldwide for children to 14 days, and no normal ranges. Consent for Treatmenton 12-17 Consent for Treatment [id number]#1.00TIFF Normal [facility] ED Clinical Summaryon 2023 ED Clinical Summary (Inserted Image. Charley ble to display) [place] [id number] ED Clinical Summary Person Information Name: TAN LASSITER/[facility] Age: 73 Years : 1950 Sex: Male Language: Chilean PCP: JUDAH ALEJANDRA MD Marital Status: Single Visit Id: Visit Reason: Respiratory problem; Shortness of breath; Chest pain; SOB CP Speciality: Acuity: 2 Enc Type: Emergency Med Service: Emergency Arrival: 01/05/2024 17:38:13 Discharge: 01/05/2024 21:23:14 LOS: 000 03:45 Checkin: 01/05/2024 17:38:13 Checkout: 01/05/2024 21:23:14 Dispo Type: Home (Routine DC) EVENTS: Event Name Event Status Request Date/Time Start Date/Time Complete Date/Time Arrive Complete 01/05/2024 17:38:13 01/05/2024 17:38:13 01/05/2024 17:38:13 Document Home Meds Request 01/05/2024 17:38:13 Triage Complete 01/05/2024 17:38:13 01/05/2024 17:52:03 01/05/2024 17:52:03 Bed Assign Complete 01/05/2024 17:40:02 01/05/2024 17:40:02 01/05/2024 17:40:02 Dr Exam Complete 01/05/2024 17:40:02 01/05/2024 17:51:32 01/05/2024 17:51:32 RN Exam Complete 01/05/2024 17:40:02 01/05/2024 17:54:53 01/05/2024 17:54:53 EKG Complete 01/05/2024 17:40:33 01/05/2024 17:46:01 Registration Complete 01/05/2024 17:43:26 01/05/2024 17:43:26 01/05/2024 17:43:26 Reg Complete Complete 01/05/2024 17:43:26 01/05/2024 18:32:17 01/05/2024 18:32:17 Reg Bed Request Complete 01/05/2024 17:43:26 01/05/2024 17:43:26 01/05/2024 17:43:26 Registration Complete 01/05/2024 17:51:32 01/05/2024 18:49:28 01/05/2024 18:49:28 Pending Labs Request 01/05/2024 18:03:35 Lab Inlab 01/05/2024 18:03:35 Meds Admin Complete 01/05/2024 18:03:35 01/05/2024 18:40:54 Patient Care Request 01/05/2024 18:03:35 X-Ray Complete 01/05/2024 18:03:35 01/05/2024 18:32:17 01/05/2024 18:41:16 RT Request 01/05/2024 18:03:35 RT Tx/ABG Complete 01/05/2024 18:03:36 01/05/2024 18:32:34 01/05/2024 18:32:34 RT Tx/ABG Complete 01/05/2024 18:03:37 01/05/2024 18:32:13 01/05/2024 18:32:13 Pending Labs Complete 01/05/2024 18:27:12 01/05/2024 18:27:12 01/05/2024 18:47:16 Lab Complete 01/05/2024 18:27:12 01/05/2024 18:27:12 01/05/2024 18:47:16 Wet Read Request 01/05/2024 18:41:16 Reg Complete Request 01/05/2024 18:49:28 Dr Exam Complete 01/05/2024 19:05:14 01/05/2024 19:05:14 01/05/2024 19:05:14 Registration Request 01/05/2024 19:05:14 Pending Labs Complete 01/05/2024 20:07:37 01/05/2024 20:07:37 01/05/2024 20:07:38 Discharge Complete 01/05/2024 21:01:45 01/05/2024 21:23:20 01/05/2024 21:23:20 Meds Admin Complete 01/05/2024 21:02:16 01/05/2024 21:13:40 RT Tx/ABG Request 01/05/2024 21:02:17 RT Tx/ABG Request 01/05/2024 21:02:17 RT Tx/ABG Request 01/05/2024 21:03:13 Transfer Complete 01/05/2024 21:23:20 01/05/2024 21:23:20 01/05/2024 21:23:20 ADDRESS: [address] [place] [phone] PHYS DOC NOTES: Addendum by Landy Najera DO on January 05, 2024 21:10:51 EDT MEDICAL INFORMATION: Prescriptions Given: New Medications [id number], [address], [place] [id number], [phone] predniSONE (predniSONE 50 mg Tab) 1 Tablets By Mouth every day for 5 Days. Refills: 0. Medications to Continue Taking That Have Changed [id number], [address], [place] [id number], [phone] START: albuterol (albuterol 0.083% Inh Clarisse 3 mL) 3 Milliliter Inhalation every 6 hours as needed for wheezing. Refills: 0. Other Medications START: albuterol (albuterol 0.083% Inh Clarisse 3 mL) Medications to Continue with No Changes Other Medications bicalutamide (Casodex 50 mg Tab) 1 Tablets By Mouth every 24 hours. Refills: 3. lisinopril (lisinopril 5 mg Tab) methotrexate (methotrexate 2.5 mg Tab) PATIENT EDUCATION INFORMATION: Instructions: Chronic Obstructive Pulmonary Disease, Tjvh-qz-Wdrt Follow up: With: Address: When: Lm Posada [address] [place] [id number] [phone] Business (1) In 3 days 01/08/2024 Comments: Take the steroids once daily until you have completed the course, use the nebulizers every 4 hours for the next 2 to 3 days then decrease to as needed. He is follow-up with your primary care doctor in the next 2 to 3 days. Please return to the ED for any new or worsening symptoms. With: Address: When: JUDAH ALEJANDRA [address] [place] [phone] Business (1) In 3 days DIAGNOSIS: 1:Chest pain; 2:COPD with acute exacerbation Normal [facility] ED Note-Physicianon 01-05-20 ED Note-Physician Basic Information Time Seen: Davi Mccall M.D. 01/05/2024 17:51 Chief Complaint chest pain that started last night. Also having SOB. Wears 2L for comfort, but not helping the SOB now. History of Present Illness The patient is a 73-year-old male past medical history of COPD on home O2 2 L as needed mostly at night, hypertension, hyperlipidemia who presented to the emergency room with increasing shortness of breath. The patient is hard of hearing and his friend is helping by reading the labs, however the patient responds appropriately. The patient's states that shortness of breath has gotten worse for the past 1 week. He denies any cough. The patient states the shortness of breath is worse with exertion. He stated going to the mailbox will make him short of breath. Since yesterday has been having tightness on his chest as well with shortness of breath. The patient denies any fever, denies any chills. He reports some sweating especially at night. The patient denies any nausea, denies any vomiting. Some times when he gets short of breath with exertion he sees stars. The patient denies any abdominal pain. He denies any diarrhea. The patient's friend states that he went to [facility] to be tested for home oxygen tank and he did not qualify because his saturation was 92% at all times. The patient denies any other associated symptoms. Review of Systems Additional ROS info: Except as noted in the above Review of Systems and in the History of Present Illness all other systems have been reviewed and are negative or noncontributory. Physical Exam Vitals & Measurements T: 36.8 ?C(Oral) HR: 79(Monitored) RR: 22 BP: 160/89 SpO2: 98% HT: 177 cm WT: 73 kg BMI: 23.3 General: alert, mild distress Skin: warm, dry Head: no trauma, normocephalic Neck: Trachea midline Eye: normal conjunctiva, sclera clear ENMT: Oral mucosa moist Cardiovascular: regular rate and rhythm, Respiratory: Lungs expiratory wheezes, respirations demonstrate accessory muscle use, breath sounds equal, symmetrical expansion Chest wall: no deformity,notenderness Gastrointestinal: soft, non distended, no tenderness Extremities: no deformity, no trauma, no pedal edema Neurological: Alert and oriented, speech normal, no focal neuro deficits, Psychiatric: cooperative, affect appropriate for age, Procedure Heart Score for Major Cardiac Event History: Example factors for history - pattern of chest pain, onset, duration, relation with exercise, stress or cold, localization, concominant symptoms. reaction to sublingual nitrates, [] Highly suspicious +2 [] Moderately suspicious +1 [x] Slightly suspicious 0 EKG: [] Significant ST-Depression +2 [] Non specific repolarization disturbance +1 [x] Normal 0 Age: [x] >= 65 +2 [] 45-65 + 1 [] <45 0 Risk Factors: (HLD, HTN, DM, Cigarette Smoking, Pos Family Hx, Obesity) [x] >3 risk factors or hx of atheroslerotic disease + 2 [] 1-2 risk factors + 1 [] No risk factors known 0 Troponin: [] >= 3X normal + 2 [] 1-3X normal + 1 [] <= Normal 0 -- [] 0-3 Points 0.9 - 1.7% risk of major adverse cardiac event in 6 weeks [] 4-6 Points 12-16.6% risk of major adverse cardiac event in 6 weeks [] 7-10 Points 50-65% risk of major adverse cardiac event in 6 weeks -- [] 0-3 Points with 2 sets of negative cardiac markers <1% risk of major adverse cardiac event in 30 days. -- Medical Decision Making MEDICAL DECISION MAKING Number and Complexity of Problems Differential Diagnosis: [] [facility] Data External documents reviewed: [] My EKG interpretation: [] My CT interpretation: [] My X-ray interpretation: [] My Ultrasound interpretation: [] Decision rules/scores evaluated: [] Discussed with: [] Treatment and Disposition ED Course: The patient presented with shortness of breath especially with exertion. More likely his shortness of breath is due to COPD exacerbation. The patient has wheezing upon exam. He reported some chest tightness as well. His chest tightness more likely is due to COPD exacerbation. The chest x-ray shows no acute cardiopulmonary disease. EKG shows no acute ST segment elevation. The patient was given Solu-Medrol breathing treatment in the emergency room. The care of the patient was transitioned to Dr. Najera upon shift change to follow-up with reevaluation blood work and final disposition. Shared decision making: [] Code status: [] Assessment/Plan 1. Chest pain (R07.9: Chest pain, unspecified) 2. COPD with acute exacerbation (J44.1: Chronic obstructive pulmonary disease with (acute) exacerbation) Orders: albuterol-ipratropium, 3 mL, Soln-Inh, Inhalation, Once, Stop date 01/05/24 18:03:00 EDT, STAT, Start date 01/05/24 18:03:00 EDT methylPREDNISolone, 125 mg (more content not included)... Normal [facility] Comment on above: Result Comment: Elec tronically Signed By: Landy Najera DO.osito\Date and Time Signed: 01/05/24 21:11 EDT ED Patient Education Noteon 01-05-2024 ED Patient Education Note Pulmonary Medicine Chronic Obstructive Pulmonary Disease Chronic obstructive pulmonary disease (COPD) is a long-term (chronic) lung problem. When you have COPD, it is hard for air to get in and out of your lungs. Usually the condition gets worse over time, and your lungs will never return to normal. There are things you can do to keep yourself as healthy as possible. What are the causes? ? Smoking. This is the most common cause. ? Certain genes passed from parent to child (inherited). What increases the risk? ? Being exposed to secondhand smoke from cigarettes, pipes, or cigars. ? Being exposed to chemicals and other irritants, such as fumes and dust in the work environment. ? Having chronic lung conditions or infections. What are the signs or symptoms? ? Shortness of breath, especially during physical activity. ? A long-term cough with a large amount of thick mucus. Sometimes, the cough may not have any mucus (dry cough). ? Wheezing. ? Breathing quickly. ? Skin that looks valdovinos or blue, especially in the fingers, toes, or lips. ? Feeling tired (fatigue). ? Weight loss. ? Chest tightness. ? Having infections often. ? Episodes when breathing symptoms become much worse (exacerbations). At the later stages of this disease, you may have swelling in the ankles, feet, or legs. How is this treated? ? Taking medicines. ? Quitting smoking, if you smoke. ? Rehabilitation. This includes steps to make your body work better. It may involve a team of specialists. ? Doing exercises. ? Making changes to your diet. ? Using oxygen. ? Lung surgery. ? Lung transplant. ? Comfort measures (palliative care). Follow these instructions at home: Medicines ? Take yegp-usn-wrplmpr and prescription medicines only as told by your doctor. ? Talk to your doctor before taking any cough or allergy medicines. You may need to avoid medicines that cause your lungs to be dry. Lifestyle ? If you smoke, stop smoking. Smoking makes the problem worse. ? Do not smoke or use any products that contain nicotine or tobacco. If you need help quitting, ask your doctor. ? Avoid being around things that make your breathing worse. This may include smoke, chemicals, and fumes. ? Stay active, but remember to rest as well. ? Learn and use tips on how to manage stress and control your breathing. ? Make sure you get enough sleep. Most adults need at least 7 hours of sleep every night. ? Eat healthy foods. Eat smaller meals more often. Rest before meals. Controlled breathing Learn and use tips on how to control your breathing as told by your doctor. Try: ? Breathing in (inhaling) through your nose for 1 second. Then, pucker your lips and breath out (exhale) through your lips for 2 seconds. ? Putting one hand on your belly (abdomen). Breathe in slowly through your nose for 1 second. Your hand on your belly should move out. Pucker your lips and breathe out slowly through your lips. Your hand on your belly should move in as you breathe out. Controlled coughing Learn and use controlled coughing to clear mucus from your lungs. Follow these steps: 1. Lean your head a little forward. 2. Breathe in deeply. 3. Try to hold your breath for 3 seconds. 4. Keep your mouth slightly open while coughing 2 times. 5. Spit any mucus out into a tissue. 6. Rest and do the steps again 1 or 2 times as needed. General instructions ? Make sure you get all the shots (vaccines) that your doctor recommends. Ask your doctor about a flu shot and a pneumonia shot. ? Use oxygen therapy and pulmonary rehabilitation if told by your doctor. If you need home oxygen therapy, ask your doctor if you should buy a tool to measure your oxygen level (oximeter). ? Make a COPD action plan with your doctor. This helps you to know what to do if you feel worse than usual. ? Manage any other conditions you have as told by your doctor. ? Avoid going outside when it is very hot, cold, or humid. ? Avoid people who have a sickness you can catch (contagious). ? Keep all follow-up visits. Contact a doctor if: ? You cough up more mucus than usual. ? There is a change in the color or thickness of the mucus. ? It is harder to breathe than usual. ? Your breathing is faster than usual. ? You have trouble sleeping. ? You need to use your medicines more often than usual. ? You have trouble doing your normal activities such as getting dressed or walking around the house. Get help right away if: ? You have shortness of breath while resting. ? You have shortness of breath that stops you from: ? Being able to talk. ? Doing normal activities. ? Your chest hurts for longer than 5 minutes. ? Your skin color is more blue than usual. ? Your pulse oximeter shows that you have low oxygen for longer than 5 minutes. ? You have a fever. ? You feel too tired to breathe normally. These symptoms may repres (more content not included)... Normal [facility] ED Patient Summaryon 024 ED Patient Summary (Inserted Image. Charley ble to display) [address] [address] Patient Discharge Instructions Person Information Name: TAN LASSITER Age: 73 Years Arrival Date: 01/05/2024 17:38:13 Discharge Diagnosis: 1:Chest pain; 2:COPD with acute exacerbation Primary Care Physician: JUDAH ALEJANDRA MD Provider Information Primary Provider: Davi Mccall M.D. Advanced Through Freight Engineer:None The exam and treatment you received in the Emergency Department were for an urgent problem and are not intended as complete care. It is important that you follow up with a doctor, nurse practitioner, or physician?s support assistant for ongoing care. If your symptoms become worse or you do not improve as expected and you are unable to reach your usual health care provider, you should return to the Emergency Department. We are available 24 hours a day. TAN LASSITER has been given the following list of patient education materials, prescriptions and follow-up instructions: Follow-up Instructions: With: Address: When: Lm Posada [address] [place], [place] [phone] [employer] (1) In 3 days 01/08/2024 Comments: Take the steroids once daily until you have completed the course, use the nebulizers every 4 hours for the next 2 to 3 days then decrease to as needed. He is follow-up with your primary care doctor in the next 2 to 3 days. Please return to the ED for any new or worsening symptoms. With: Address: When: JUDAH [address] [facility] [place] [address] [employer] (1) In 3 days In the event that this physician does not participate in your insurance network, please consult with your insurance company to find a nearby participating provider. Patient Education Materials: Chronic Obstructive Pulmonary Disease, Ehkc-as-Rfbu A MESSAGE TO ALL PATIENTS REGARDING OPIOIDS PRESCRIPTION OPIOIDS: WHAT YOU NEED TO KNOW Prescription opioids can be used to help relieve ptlqfccl-jw-wozegx pain and are often prescribed following a surgery or injury, or for certain health conditions. These medications can be an important part of the treatment but also come with serious risks. It is important to work with your healthcare provider to make sure you are getting the safest, most effective care. WHAT ARE THE RISKS AND SIDE EFFECTS OF OPIOID USE? Prescription opioids carry serious risks of addiction and overdose, especially with prolonged use. An opioid overdose, often marked by slowed breathing, can cause sudden . The use of prescription opioids can have a number of side effects as well, even when taken as directed: ? Tolerance?meaning you might need to take more of the medication for the same pain relief ? Physical dependence?meaning you have symptoms of withdrawal when a medication is stopped ? Increased sensitivity to pain ? Constipation ? Nausea, vomiting, and dry mouth ? Sleepiness and dizziness ? Confusion ? Depression ? Low levels of testosterone that can result in lower sex drive, energy, and strength ? Itching and sweating RISKS ARE GREATER WITH: ? History of drug misuse, substance use disorder, or overdose ? Mental health conditions (such as depression or anxiety) ? Sleep apnea ? Older age (65 years and older) ? Avoid alcohol while taking prescription opioids. Also, unless specifically advised by your health care provider, medications to avoid include: ? Benzodiazepines (such as Xanax or Valium) ? Muscle relaxants (such as Soma or Flexeril) ? Hypnotics (such as Ambien or Lunesta) ? Other prescription opioids KNOW YOUR OPTIONS Talk to your health care provider about ways to manage your pain that don?t involve prescription opioids. Some of these options may actually work better and have fewer risks and side effects. Options may include: ? Pain relievers such as acetaminophen, ibuprofen, and naproxen ? Some medication that are also used for depression or seizures ? Physical therapy and exercise ? Cognitive behavioral therapy, a psychological, goal-directed approach, in which patients learn how to modify physical, behavioral, and emotional triggers of pain and stress. IF YOU ARE PRESCRIBED OPIOIDS FOR PAIN: ? Never take opioids in greater amounts or more often than prescribed. ? Follow up with your primary health care provider. o Work together to create a plan on how to manage your pain. o Talk about ways to help manage your pain that don?t involve prescription opioids. o Talk about any and all concerns and side effects. ? Help prevent misuse and abuse o Never sell or share prescription opioids. o Never use another person?s prescription opioids. ? Store prescription opioids in a secure place and out of reach of others (this may include visitors, children, friends, and family). ? Safely dispose of unused prescription opioids: Find your community drug take-back program (more content not included)... Normal [facility] HEMATOLOGYOrdered By: SYSTEM SYSTEM on 01-05-2024 Basophils/100 WBC (Bld) 0.9 % Normal 0.0 - 2.0 % Remisol Heme Basophils/Leukocytes Auto (Bld) [Pure # fraction] 0.1 E9/L Normal 0.0 - 0.2 E9/L Remisol Heme Eosinophils (Bld) [#/Vol] 0.2 E9/L Normal 0.0 - 0.5 E9/L Remisol Heme Eosinophils/100 WBC (Bld) 2.2 % Normal 0.0 - 8.0 % Remisol Heme Erythrocyte distribution width (RBC) [Ratio] 14.7 % High 10.9 - 14.2 % Remisol Heme Hematocrit (Bld) [Volume fraction] 39.6 % Normal 37.7 - 49.0 % Remisol Heme Hemoglobin (Bld) [Mass/Vol] 13.3 g/dL Low 13.5 - 17.5 gm/dL Remisol Heme Lymphocytes (Bld) [#/Vol] 1.4 E9/L Normal 1.0 - 4.0 E9/L Remisol Heme Lymphocytes/100 WBC (Bld) 18.9 % Normal 14.0 - 50.0 % Remisol Heme MCH (RBC) [Entitic mass] 32.2 pg Normal 27.0 - 34.0 pg Remisol Heme MCHC (RBC) [Mass/Vol] 33.7 g/dL Normal 31.4 - 36.0 gm/dL Remisol Heme MCV (RBC) [Entitic vol] 95.8 fL Normal 80.0 - 100.0 fL Remisol Heme Monocytes (Bld) [#/Vol] 0.5 E9/L Normal 0.2 - 1.0 E9/L Remisol Heme Monocytes/100 WBC (Bld) 6.7 % Normal 4.0 - 14.0 % Remisol Heme Neutrophils (Bld) [#/Vol] 5.3 E9/L Normal 2.0 - 7.5 E9/L Remisol Heme Neutrophils/100 WBC (Bld) 71.3 % Normal 36.0 - 75.0 % Remisol Heme Platelet mean volume (Bld) [Entitic vol] 7.8 fL Normal 6.4 - 10.8 fL Remisol Heme Platelets (Bld) [#/Vol] 327.0 E9/L Normal 150.0 - 500.0 E9/L Remisol Heme RBC (Bld) [#/Vol] 4.1 E12/L Low 4.3 - 5.9 E12/L Remisol Heme WBC corrected for nucl RBC Auto (Bld) [#/Vol] 7.4 E9/L Normal 4.0 - 11.0 E9/L Remisol Heme MICRO OTHER TESTSOrdered By: Carol Haywood on 01-05-2024 Rapid COV Int NEG Ctl Pass (01/05/24 7:18 PM) Normal [facility] Rapid COV Int POS Ctl Pass (01/05/24 7:18 PM) Normal [facility] SARS-CoV+SARS-CoV-2 (COVID-19) Ag IA.rapid Ql (Resp) Not Detected 6 (01/05/24 7:18 PM) Normal Not Detected [facility] Comment on above: Interpretive Data: [employer] Veritor System for Rapid Detection of SARS-CoV-2 is a chromatographic digital immunoassay intended for the direct and qualitative detection of SARS-CoV-2 nucleocapsid antigens in nasal swabs from individuals who are suspected of COVID-19 by their healthcare provider within the first five days of the onset of symptoms. Negative results should be treated as presumptive, do not rule out SARS-CoV-2 infection and should not be used as the sole basis for treatment or patient management decisions, including infection control decisions. Negative results should be considered in the context of a patient s recent exposures, history and the presence of clinical signs and symptoms consistent with COVID-19, and confirmed with a molecular assay, if necessary, for patient management. For in vitro diagnostic use. In the [place], only for use under an Emergency Use Authorization. In the [place], this test has not been FDA cleared or approved; this test has been authorized by FDA under an EUA for use by authorized laboratories; use by laboratories certified under the CLIA, 42 U.S.C. 263a, that meet requirements to perform moderate, high, or waived complexity tests and at the Point of Care (POC), i.e., in patient care settings operating under a CLIA Certificate of Waiver, Certificate of Compliance, or Certificate of Accreditation. This test has been authorized only for the detection of proteins from SARS-CoV-2, not for any other viruses or pathogens; and, in the [place], this test is only authorized for the duration of the declaration that circumstances exist justifying the authorization of emergency use of in vitro diagnostics for detection and/or diagnosis of the virus that causes COVID-19 under Section 564(b)(1) of the Act, 21 U.S.C. 360bbb-3(b)(1), unless the authorization is terminated or revoked sooner. Monitor Recordon 01-05-2024 Monitor Record [id number] Normal [facility] PT & PTTon 01-05-2024 aPTT Coag (PPP) [Time] 32.1 second(s) Normal 25.1-36.5 [facility] Comment on above: Result Comment: Para meter 15 days - 4 weeks 1 - 5 months 6 - 11 months 1 - 5 years 6 - 10 years 11 - 17 years PTT Mean: 35.4 (27.6-45.6) Mean: 33.5 (24.8-40.7) Mean: 32.4 (25.1-40.7) Mean: 31.6 (24.0-39.2) Mean: 31.6 (26.9-38.7) Mean: 31.0 (24.6-38.4) Pediatric Reference ranges were obtained from a study by ese Craven prepared from 1437 samples obtained at 7 different centers using the same coagulation reagent and instrumentation as [facility]. Currently there are no coagulation studies available worldwide for children to 14 days, and no normal ranges. Heparin therapeutic range (represented by Anti-Factor Xa activity of 0.2 - 0.4 U/mL) corresponds to PTT of 56.6 - 109.0 sec. Performed By: #### 2 [id number] #### [facility] [address] [place] [address] INR Coag (PPP) [Relative time] 1.04 {INR} Invalid Interpretation Code [facility] Comment on above: Result Comment: INR results are specifically intended to assess patients stabilized on long-term Anticoagulation therapy suggested INR?s ?Less Intensive Anticoagulation? 2.0 ? 3.0 Conventional Range 3.0 ? 4.5 Performed By: #### 2 [id number] #### [facility] [address] [place] [address] PT Coag (PPP) [Time] 11.6 second(s) Normal 9.4-12.5 [facility] Comment on above: Result Comment: 15 d ays - 4 weeks 1 - 5 months 6 -11 months 1 ? 5 years 6 ? 10 years 11 -17 years Mean: 11.2 (9.5 ? 12.6) Mean: 11.0 (9.7 ? 12.8) Mean: 11.0 (9.8 ? 13.0) Mean: 11.3 (9.9 ? 13.4) Mean: 11.7 (10.0 ? 14.6) Mean: 11.8 (10.0 - 14.1) Pediatric Reference ranges were obtained from a study by Arian Oviedo, et al. prepared from 1437 samples obtained at 7 different centers using the same coagulation reagent and instrumentation as [facility] Currently there are no coagulation studies available worldwide for children to 14 days, and no normal ranges. Performed By: #### 2 [id number], [id number] #### [facility] [address] [place] [address] Rapid COVID Antigen ([facility])on 01-05-2024 Rapid COV Int NEG Ctl Pass Normal [facility] Comment on above: Performed By: #### 2 [id number] #### [facility] [address] [place] [address] Rapid COV Int POS Ctl Pass Normal [facility] Comment on above: Performed By: #### 2 [id number] #### [facility] [address] [place] [id number] SARS-CoV+SARS-CoV-2 (COVID-19) Ag IA.rapid Ql (Resp) Not detected Normal Not Detected [facility] Comment on above: Result Comment: The [employer]? System for Rapid Detection of SARS-CoV-2 is a chromatographic digital immunoassay intended for the direct and qualitative detection of SARS-CoV-2 nucleocapsid antigens in nasal swabs from individuals who are suspected of COVID-19 by their healthcare provider within the first five days of the onset of symptoms. Negative results should be treated as presumptive, do not rule out SARS-CoV-2 infection and should not be used as the sole basis for treatment or patient management decisions, including infection control decisions. Negative results should be considered in the context of a patient?s recent exposures, history and the presence of clinical signs and symptoms consistent with COVID-19, and confirmed with a molecular assay, if necessary, for patient management. For in vitro diagnostic use. In the [place], only for use under an Emergency Use Authorization. In the [place], this test has not been FDA cleared or approved; this test has been authorized by FDA under an EUA for use by authorized laboratories; use by laboratories certified under the CLIA, 42 U.S.C. ?263a, that meet requirements to perform moderate, high, or waived complexity tests and at the Point of Care (POC), i.e., in patient care settings operating under a [place] Certificate of Waiver, Certificate of Compliance, or Certificate of Accreditation. This test has been authorized only for the detection of proteins from SARS-CoV-2, not for any other viruses or pathogens; and, in the [place], this test is only authorized for the duration of the declaration that circumstances exist justifying the authorization of emergency use of in vitro diagnostics for detection and/or diagnosis of the virus that causes COVID-19 under Section 564(b)(1) of the Act, 21 U.S.C. ? 360bbb-3(b)(1), unless the authorization is terminated or revoked sooner. Performed By: #### 2 [id number] #### [facility] [address] [place] [address] Troponin 0 Hr.on 01-05-2024 Troponin 10.40 pg/mL Low 15.90-38.4 0 [facility] Comment on above: Result Comment: The 95% CI (Confidence Interval) PPV (Positive Predictive Value) for myocardial infarction in females is 38 pg/mL, in males 51 pg/mL. The results should be used in conjunction with clinical conditions of myocardial infarction. (Access High Sensitivity Troponin I Instructions For Use, [employer], May 2018) Performed By: #### 2 [id number] #### [facility] [address] [place] [address] Troponin 3 Hr.on 01-05-2024 Troponin 10.20 pg/mL Low 15.90-38.4 0 [facility] Comment on above: Result Comment: The 95% CI (Confidence Interval) PPV (Positive Predictive Value) for myocardial infarction in females is 38 pg/mL, in males 51 pg/mL. The results should be used in conjunction with clinical conditions of myocardial infarction. (Access High Sensitivity Troponin I Instructions For Use, [employer], May 2018) Performed By: #### 2 [id number] #### [facility] [address] [place] [address] eGFRon 01-05-2024 eGFR 89 mL/min/1.73 m2 Normal >=59 [facility] Comment on above: Order Comment: Order added by Discern Expert. Performed By: #### 2 [id number] #### [facility] [address] [place] [address] Result Letter Officeon 12-29 Result Letter Office (Inserted Image. Un able to display) December 30, 2023 TAN LASSITER [address] [place] [address] : 1950 Dear Mr Fajardo Evangelista, We are writing you to let you know that your PSA results came back within normal range. Your levels actually decreased from previous results. This is good news. Your next follow up with Dr Still is on July 10, 2024. Enclosed is an appointment reminder, as well as a new order for you to get your PSA drawn prior to your next appointment. [facility] [address] [address] Normal [facility] Ambulatory Visit Summaryon 0 12-27-2023 Ambulatory Visit Summary TAN LASSITER :1950 Visit Date:12/27/2023 Ambulatory Visit Instructions Your Diagnosis Increasing PSA level after treatment for prostate cancer BPH with urinary obstruction Nocturia Your Care Team Attending Physician - TESSY MORE, Lorenzo Azul Primary Care Physician - KAREN MORE, JUDAH Waldron This Is Your Medications List bicalutamide (Casodex 50 mg Tab) Contact prescribing physician if questions or concerns albuterol (albuterol 0.083% Inh Clarisse 3 mL) lisinopril (lisinopril 5 mg Tab) methotrexate (methotrexate 2.5 mg Tab) Procedures Performed History of radiation therapy (10/18/2006), Colonoscopy, Excision of cataract, Extraction of all maxillary teeth, steel plate in head. Discharge Vitals Heart Rate (Peripheral) 84 Respiratory Rate 16 Blood Pressure 134/86 Height 177 cm Height 70 in Weight 73 kg Weight 160.6 lb BMI 23.3 What to do next Scheduled Follow-Up Appointments Wednesday 11:30 AM EDT With: Lorenzo STILL MD Where: [facility] [place] Jean Claude Normal [facility] CHEMISTRYOrdered By: SYSTEM SYSTEM on 12-27-2023 Prostate specific Ag [Mass/Vol] 2.7 ng/mL Normal 0.1 - 3.5 ng/mL [facility] Comment on above: Interpretive Data: T he concentration of PSA determined by different manufacturers can vary due to differences in assay methods and reagent specificity. Values obtained from different assay methods cannot be used interchangeably. The methodology used for this result was chemiluminescence using [employer]'s Access Hybritech PSA reagent. PSA Totalon 12-27-2023 Prostate specific Ag [Mass/Vol] 2.7 ng/mL Normal 0.1-3.5 [facility] Comment on above: Result Comment: The concentration of PSA determined by different manufacturers can vary due to differences in assay methods and reagent specificity. Values obtained from different assay methods cannot be used interchangeably. The methodology used for this result was chemiluminescence using [employer]'s Access Hybritech PSA reagent. Performed By: #### 2 [id number] #### [facility] [address] [place] [address] Patient Educationon 12-27-19 Patient Education Oncology Cancer Screening for Men A cancer screening is a test or exam that checks for cancer. Your health care provider will recommend specific cancer screenings based on your age, medical history (including risk factors), and family history of cancer. Work with your health care provider to create a cancer screening schedule that protects your health. Who should have screening? All men should be considered for screening of certain cancers, including colorectal cancer, prostate cancer, lung cancer, and skin cancer. Your health care provider may recommend screenings for other types of cancer if: ? You had cancer before. ? You have a family member with cancer. ? You have abnormal genes that could increase the risk of cancer. ? You have risk factors for certain cancers, such as current or past use of tobacco products, or being overweight. When you should be screened for cancer depends on: ? Your age. ? Your medical history and your family's medical history. ? Certain lifestyle factors, such as smoking or other use of tobacco products. ? Environmental exposure, such as to asbestos. How is screening done? Colorectal cancer All adults should have screenings starting at age 45 and continuing until age 75. Your health care provider may recommend screening before age 45. You will have tests every 1?10 years, depending on your results and the type of screening test. People at increased risk should start screening at an earlier age. Talk with your health care provider about which screening test is right for you and how often you should be screened. Colorectal cancer screening looks for cancer or for growths called polyps that often form before cancer starts. Tests to look for cancer or polyps include: ? Colonoscopy or flexible sigmoidoscopy. For these procedures, a flexible tube with a small camera is inserted into the rectum. ? CT colonography. This test uses X-rays and a contrast dye to check the colon for polyps. If a polyp is found, you may need to have a colonoscopy so the polyp can be located and removed. Tests to look for cancer in the stool (feces) include: ? Guaiac-based fecal occult blood test (FOBT). This test can find blood in stool. It can be done at home with a kit. ? Fecal immunochemical test (FIT). This test can find blood in stool. For this test, you will need to collect stool samples at home. ? Stool DNA test. This test looks for blood in stool and any changes in DNA that can lead to colon cancer. For this test, you will need to collect a stool sample at home and send it to a lab. Prostate cancer Prostate cancer screening for men with average risk may start at age 50. Men with risk factors may need to be screened earlier, at ages 40?45. Talk with your health care provider about whether screening is right for you and, if so, how often you should be screened. Prostate cancer screening is done with blood tests and a digital rectal exam. During this exam, a health care provider uses a gloved finger to check prostate size. You may need to be screened for prostate cancer if: ? You have risk factors for prostate cancer, such as being or having a close family member with prostate cancer. ? You have had gene changes or a genetic condition that was passed on to you from a parent (inherited). These gene changes or genetic conditions include BRCA1 or BRCA2 gene mutations or Mcgee syndrome. ? You have symptoms of prostate cancer, such as problems urinating or problems getting or keeping an erection (erectile dysfunction). When you have been screened for prostate cancer, future screening may be recommended based on the results of your blood tests. Lung cancer Lung cancer screening is done with a CT scan that looks for abnormal changes in the lungs. Discuss lung cancer screening with your health care provider if you are 50?80 years old and if any of the following apply to you: ? You currently smoke. ? You used to smoke heavily. ? You have a smoking history of 1 pack of cigarettes a day for 20 years or 2 packs a day for 10 years. ? You have quit smoking within the past 15 years. You may need to be screened every year if you smoke heavily or if you used to smoke. Skin cancer Skin cancer screening is done by checking the skin for unusual moles or spots and any changes in existing moles. Your health care provider should check your skin for signs of skin cancer at every physical exam. You should check your skin every month and tell your health care provider right away if anything looks unusual. Men with a wqnllp-awed-pavplt risk for skin cancer may want to see a customer engagement specialist (station attendant) for an annual body check. What are the benefits of screening? Cancer screening is done to look for cancer in the very early stages, before it spreads and becomes harder to treat and before you would start to notice symptoms. Finding cancer early improves the chances of successful treatment. It ma (more content not included)... Normal [facility] Urology Office/Clinic Noteon 12-27-2023 Urology Office/Clinic Note Chief Complaint 6m PSA HPI Staff 6m PSA DX: Increasing PSA following Prostate Cancer Tx, BPH & Nocturia S/p EBRT done in 2006. LAST LUPRON 07/05/23 *Casodex 50mg QD therapy. Recommended OTC vitamin C and D QD for bone health at time of last encounter Did not get PSA drawn for today's office. PSA drawn IO today. Denies pain/burning and visible blood in urine. Denies complaints with stream. Still getting up 2x/night to void. Not bothersome. No concerns at this time. History of Present Illness Tests reviewed: reviewed UA I have reviewed the previous health record information and history for this patient from Dr. Still. I have reviewed and verified the staff HPI to be accurate for this encounter. Review of Systems PHQ Score Initial Depression Screen Score: 0 SCORE ROS - Provider Constitutional: denies weight loss, denies hot flashes. Eyes: denies eye problems. Gastrointestinal: denies nausea, denies vomiting. Cardiovascular: denies chest pain or angina. Integumentary: no dryness Musculoskeletal: denies musculoskeletal symptoms. ENMT: denies otolaryngeal symptoms. Respiratory: no shortness of breath. Heme/Lymph: denies easy bleeding tendency, denies easy bruising tendency. Psychiatric: no confusion, no anxiety. Genitourinary: See HPI. Physical Exam Vitals & Measurements HR: 84(Peripheral) RR: 16 BP: 134/86 HT: 70 in HT: 177 cm WT: 73 kg WT: 160.6 lb BMI: 23.3 General Appearance: alert, no distress, well nourished, well developed male. Genitourinary: normal scrotum, normal testes, normal urethra, normal epididymis, normal vas deferens/spermatic cord. Flank Pain: none. Bladder: nonpalpable. Assessment/Plan 1. Increasing PSA level after treatment for prostate cancer (R97.21: Rising PSA following treatment for malignant neoplasm of prostate) PSA: 07/15/20 - 0.20 02/13/21 - 0.60 04/23/22 - 1.19 07/21/22 - 1.11 11/30/22 - 1.80 06/29/23 - 3.30 EBRT 2006. Last Eligard 02/24/21. Unable to taking Enzalutamide 4mg qd due to it being cost prohibitive. Currently on Casodex 50mg qd. Last Lupron given 07/05/23. Taking OTC Vit C and D for bone health. Pt did not obtain PSA level for appt today. PSA was drawn IO today. Advised pt level is likely lower due to receiving Lupron at last encounter. Discussed if PSA level has not decreased from prior, will need to give a Lupron injection. -Cont Casodex as above. Refills sent to [facility]. -F/u in 6 mos w/ repeat PSA and possible Lupron 2. BPH with urinary obstruction (N40.1: Benign prostatic hyperplasia with lower urinary tract symptoms) UA today negative for blood and infection. Not currently taking any BPH meds. Not voicing any urinary complaints. 3. Nocturia (R35.1: Nocturia) Continues to get up 2x/night to void. Not bothersome. Follow-up With When Contact Information TESSY MORE, Lorenzo Azul, URL [facility] [address], [place] [address]- [phone] Additional Instructions: 6 months w/ PSA and possible Lupron Patient Education Cancer Screening for Men I, Zeina Alejandra, personally scribed for Dr. Still on 12/27/2023 13:08:15. . Documentation recorded by the scribe, Zeina Alejandra, accurately reflects the services(s) I performed and decisions made by me. Authenticated by Dr. Still on 12/27/2023 13:11:07. Problem List/Past Medical History Ongoing BPH with urinary obstruction Enlarged prostate with urinary obstruction History of heart attack History of prostate cancer Hyperlipidemia Increasing PSA level after treatment for prostate cancer Nocturia Prostate cancer Rheumatoid arthritis Weak urinary stream Historical No qualifying data Procedure/Surgical History History of radiation therapy (10/18/2006), Colonoscopy, Excision of cataract, Extraction of all maxillary teeth, steel plate in head. Medications albuterol 0.083% Inh Clarisse 3 mL Casodex 50 mg Tab, 50 mg= 1 tab(s), Oral, q24hr, 3 refills lisinopril 5 mg Tab methotrexate 2.5 mg Tab Allergies penicillin (rash) Social History Alcohol - Denies Alcohol Use, 10/19/2018 1-2 times per year, 11/06/2019 Substance Abuse - Denies Substance Abuse, 10/19/2018 Tobacco - Denies Tobacco Use, 08/28/2019 Never (less than 100 in lifetime) Tobacco Use:. Never Smokeless Tobacco Use:. Household tobacco concerns: No. Yes, 12/27/2023 Family History Hypertension: Grandparent. Leukemia: Mother. Immunizations Vaccine Date Status Comments influenza virus vaccine, inactivated 08/05/2022 Recorded SARS-CoV-2 (COVID-19) mRNA BNT-162b2 vax 09/22/2021 Recorded influenza virus vaccine, inactivated 08/26/2021 Recorded SARS-CoV-2 (COVID-19) mRNA BNT-162b2 vax 01/03/2021 Recorded SARS-CoV-2 (COVID-19) mRNA BNT-162b2 vax 12/13/2020 Recorded influenza virus vaccine, inactivated - Not Given Postpone due to refusal influenza virus vaccine, inactivated 06/14/2019 Recorded influenza virus vac (more content not included)... [facility] Comment on above: Result Comment: Elec tronically Signed By: TESSY MORE, Lorenzo Azul\.br\Date and Time Signed: 12/27/23 13:11 EDT\.br\Electronically Co-Signed By: Zeina Alejandra\.br\Date and Time Co-Signed: 12/27/23 13:08 EDT Pre-Certification Formon Pre-Certification Form [id number] Normal [facility] Ambulatory Visit Summaryon 0 07-05-2023 Ambulatory Visit Summary TAN LASSITER :1950 Visit Date:07/05/2023 Ambulatory Visit Instructions Your Diagnosis Increasing PSA level after treatment for prostate cancer Enlarged prostate with urinary obstruction Nocturia Tests Performed Urnls Dip Stick Auto w/o Microscopy POC 22702 Your Care Team Attending Physician - TESSY MORE, Lorenzo Azul Primary Care Physician - JUDAH ALEJANDRA MD This Is Your Medications List bicalutamide (Casodex 50 mg Tab) Contact prescribing physician if questions or concerns albuterol albuterol (albuterol 0.083% Inh Clarisse 3 mL) atorvastatin (atorvastatin 10 mg Tab) folic acid (folic acid 1 mg Tab) latanoprost ophthalmic (latanoprost 0.005% preservative-free ophthalmic solution) lisinopril (lisinopril 5 mg Tab) methotrexate (Trexall 10 mg oral tablet) methotrexate (methotrexate 2.5 mg Tab) predniSONE (predniSONE 10 mg Tab) umeclidinium-vilanterol (Anoro Ellipta 62.5 mcg-25 mcg inhalation powder) Procedures Performed History of radiation therapy (10/18/2006), Colonoscopy, Excision of cataract, Extraction of all maxillary teeth, steel plate in head. Discharge Vitals Heart Rate (Peripheral) 65 Respiratory Rate 16 Blood Pressure 116/68 Height 177 cm Height 70 in Weight 73.2 kg Weight 161.04 lb BMI 23.36 What to do next Scheduled Follow-Up Appointments Wednesday 11:30 AM EDT With: TESSY MORE, Lorenzo Azul Where: [facility] [place] Jean Claude Normal [facility] Patient Educationon 07-05-20 Patient Education Urology Benign Prostatic Hyperplasia Benign prostatic hyperplasia (BPH) is an enlarged prostate gland that is caused by the normal aging process. The prostate may get bigger as a man gets older. The condition is not caused by cancer. The prostate is a walnut-sized gland that is involved in the production of semen. It is located in front of the rectum and below the bladder. The bladder stores urine. The urethra carries stored urine out of the body. An enlarged prostate can press on the urethra. This can make it harder to pass urine. The buildup of urine in the bladder can cause infection. Back pressure and infection may progress to bladder damage and kidney (renal) failure. What are the causes? This condition is part of the normal aging process. However, not all men develop problems from this condition. If the prostate enlarges away from the urethra, urine flow will not be blocked. If it enlarges toward the urethra and compresses it, there will be problems passing urine. What increases the risk? This condition is more likely to develop in men older than 50 years. What are the signs or symptoms? Symptoms of this condition include: ? Getting up often during the night to urinate. ? Needing to urinate frequently during the day. ? Difficulty starting urine flow. ? Decrease in size and strength of your urine stream. ? Leaking (dribbling) after urinating. ? Inability to pass urine. This needs immediate treatment. ? Inability to completely empty your bladder. ? Pain when you pass urine. This is more common if there is also an infection. ? Urinary tract infection (UTI). How is this diagnosed? This condition is diagnosed based on your medical history, a physical exam, and your symptoms. Tests will also be done, such as: ? A post-void bladder scan. This measures any amount of urine that may remain in your bladder after you finish urinating. ? A digital rectal exam. In a rectal exam, your health care provider checks your prostate by putting a lubricated, gloved finger into your rectum to feel the back of your prostate gland. This exam detects the size of your gland and any abnormal lumps or growths. ? An exam of your urine (urinalysis). ? A prostate specific antigen (PSA) screening. This is a blood test used to screen for prostate cancer. ? An ultrasound. This test uses sound waves to electronically produce a picture of your prostate gland. Your health care provider may refer you to a specialist in kidney and prostate diseases (urologist). How is this treated? Once symptoms begin, your health care provider will monitor your condition (active surveillance or watchful waiting). Treatment for this condition will depend on the severity of your condition. Treatment may include: ? Observation and yearly exams. This may be the only treatment needed if your condition and symptoms are mild. ? Medicines to relieve your symptoms, including: ? Medicines to shrink the prostate. ? Medicines to relax the muscle of the prostate. ? Surgery in severe cases. Surgery may include: ? Prostatectomy. In this procedure, the prostate tissue is removed completely through an open incision or with a laparoscope or robotics. ? Transurethral resection of the prostate (TURP). In this procedure, a tool is inserted through the opening at the tip of the penis (urethra). It is used to cut away tissue of the inner core of the prostate. The pieces are removed through the same opening of the penis. This removes the blockage. ? Transurethral incision (TUIP). In this procedure, small cuts are made in the prostate. This lessens the prostate's pressure on the urethra. ? Transurethral microwave thermotherapy (TUMT). This procedure uses microwaves to create heat. The heat destroys and removes a small amount of prostate tissue. ? Transurethral needle ablation (TUNA). This procedure uses radio frequencies to destroy and remove a small amount of prostate tissue. ? Interstitial laser coagulation (ILC). This procedure uses a laser to destroy and remove a small amount of prostate tissue. ? Transurethral electrovaporization (TUVP). This procedure uses electrodes to destroy and remove a small amount of prostate tissue. ? Prostatic urethral lift. This procedure inserts an implant to push the lobes of the prostate away from the urethra. Follow these instructions at home: ? Take flbb-jgc-itdfclx and prescription medicines only as told by your health care provider. ? Monitor your symptoms for any changes. Contact your health care provider with any changes. ? Avoid drinking large amounts of liquid before going to bed or out in public. ? Avoid or reduce how much caffeine or alcohol you drink. ? Give yourself time when you urinate. ? Keep all follow-up visits. This is important. Contact a health care provider if: ? You have unexplained back pain. ? Your symptoms do not get better with treatment. ? You develop side effects from the medicine (more content not included)... Normal [facility] Urology Office/Clinic Noteon 07-05-2023 Urology Office/Clinic Note Chief Complaint increasing PSA after treatment for prostate cancer HPI Staff 6 mos f/u PSA and Possible Lupron Inj Previous DX:Increasing PSA Level After Treatment For Prostate Cancer, Enlarge Prostate w/Urinary Obstruction, and Nocturia. Casodex 50mg QD Pt states that he ran out last month and did not get a refill. Last Eligard 02/24/21 Previous PSA on 11/30/22 was 1.8 and recent PSA done 06/29/23 is 3.3. Dysuria: no Incomplete bladder emptying: no Hematuria: no Frequency: no Urgency: no Nocturia: 1x Stream: good steady Leaking: no Post void dripping: no Wearing pads/ Depends: no Urge incontinence: no Stress incontinence: no Incontinence without Sensory Awareness: no Abdominal pain: no Flank pain: no Sexual complaints: no History of Present Illness Tests reviewed: reviewed UA and PSA. I have reviewed the previous health record information and history for this patient from . I have reviewed and verified the staff HPI to be accurate for this encounter. There have been no associated fever, chills, flank pain, or blood in the urine. Denies any urinary infections since last encounter. Review of Systems PHQ Score Initial Depression Screen Score: 0 ROS - Provider Constitutional: denies weight loss, denies hot flashes. Eyes: denies eye problems. Gastrointestinal: denies nausea, denies vomiting. Cardiovascular: denies chest pain or angina. Integumentary: no dryness Musculoskeletal: denies musculoskeletal symptoms. ENMT: denies otolaryngeal symptoms. Respiratory: no shortness of breath. Heme/Lymph: denies easy bleeding tendency, denies easy bruising tendency. Psychiatric: no confusion, no anxiety. Genitourinary: See HPI. Physical Exam Vitals & Measurements HR: 65(Peripheral) RR: 16 BP: 116/68 HT: 70 in HT: 177 cm WT: 73.2 kg WT: 161.04 lb BMI: 23.36 General Appearance: alert, no distress, well nourished, well developed male. Genitourinary: normal scrotum, normal testes, normal urethra, normal epididymis, normal vas deferens/spermatic cord. Flank Pain: none. Bladder: nonpalpable. Assessment/Plan 1. Increasing PSA level after treatment for prostate cancer (R97.21: Rising PSA following treatment for malignant neoplasm of prostate) S/p EBRT done in 2006. Last Eligard 02/24/21. PSA: 07/15/20 - 0.20 02/13/21 - 0.60 04/23/22 - 1.19 07/21/22 - 1.11 11/30/22 - 1.80 06/29/23 - 3.30 D/c Casodex 50mg QD and started Enzalutamide, Pt was not taking Enzalutamide 4mg QD due to it being cost prohibitive, states his insurance would not pay for it. Restarted Casodex 50mg QD. Pt states that he ran out last month and did not get a refill. Advised pt that if this happens again, he is to call our office. Will send a new script to pharm today. UA today is negative for blood and infection. Due to pt's PSA increasing, will give pt Lupron inject today due to pt not being on his Casodex recently and his PSA rising. Lupron 45 mgIM injection given today with no complications. Left glute. Pt. denies side effects at this time. Discussed Lupron side effects (hot flashes, decreased libido, difficulty achieving/maintaining erection, bone thinning). Pt to start taking OTC vitamin C and D QD for bone health. Follow up in 6 mos w/PSA. All questions/concerns were discussed. Pt to call the office if he encounters any issues prior. Pt acknowledges understanding. -Will order PSA. -Cont Casodex. Refills sent today. 2. Enlarged prostate with urinary obstruction (N40.1: Benign prostatic hyperplasia with lower urinary tract symptoms) UA today negative for blood and infection. Pt not taking any prostate mediations. 3. Nocturia (R35.1: Nocturia) Ongoing, 2x/night. Follow-up With When Contact Information TESSY MORE, WANDA Arthur In 6 months [facility] [address], [place] [address]- [phone] Additional Instructions: w/PSA Patient Education Benign Prostatic Hyperplasia I, Shannan Washington , personally scribed for Dr. Still on 07/05/2023 11:46:10. . Documentation recorded by the scribe, Shannan Washington, accurately reflects the services(s) I performed and decisions made by me. Problem List/Past Medical History Ongoing BPH with urinary obstruction Enlarged prostate with urinary obstruction History of heart attack History of prostate cancer Hyperlipidemia Increasing PSA level after treatment for prostate cancer Nocturia Prostate cancer Rheumatoid arthritis Weak urinary stream Historical No qualifying data Procedure/Surgical History History of radiation therapy (10/18/2006), Colonoscopy, Excision of cataract, Extraction of all maxillary teeth, steel plate in head. Medications albuterol albuterol 0.083% Inh Clarisse 3 mL Anoro Ellipta 62.5 mcg-25 mcg inhalation powder, 1 inh, Inhalation, Daily atorvastatin 10 mg Tab, 10 mg= 1 tab(s), Oral, Bedtime Casodex 50 mg Tab, 50 mg= (more content not included)... Normal [facility] Comment on above: Result Comment: Elec tronically Signed By: Lorenzo STILL MD\.br\Date and Time Signed: 07/05/23 11:47 EDT\.br\Electronically Co-Signed By: Shannan Washington\.br\Date and Time Co-Signed: 07/05/23 11:46 EDT Insurance Correspondenceon 0 07-01-2023 Insurance Correspondence [id number] Normal [facility] Ambulatory Visit Summaryon 0 06-29-2023 Ambulatory Visit Summary TAN LASSITER :1950 Visit Date:06/29/2023 Ambulatory Visit Instructions Your Diagnosis Prostate cancer Your Care Team Attending Physician - LEWIS STEPHENS, JACQUELINE Santiago Primary Care Physician - KAREN MORE, JUDAH Waldron This Is Your Medications List albuterol atorvastatin (atorvastatin 10 mg Tab) bicalutamide (Casodex 50 mg Tab) folic acid (folic acid 1 mg Tab) latanoprost ophthalmic (latanoprost 0.005% preservative-free ophthalmic solution) methotrexate (methotrexate 2.5 mg Tab) umeclidinium-vilanterol (Anoro Ellipta 62.5 mcg-25 mcg inhalation powder) Procedures Performed History of radiation therapy (10/18/2006), Colonoscopy, Excision of cataract, Extraction of all maxillary teeth, steel plate in head. What to do next Scheduled Follow-Up Appointments Wednesday 10:45 AM EDT With: TESSY MORE, Lorenzo Azul Where: [facility] PSA Totalon 06-29-2023 Prostate specific Ag [Mass/Vol] 3.3 ng/mL Normal 0.1-3.5 [facility] Comment on above: Result Comment: The concentration of PSA determined by different manufacturers can vary due to differences in assay methods and reagent specificity. Values obtained from different assay methods cannot be used interchangeably. The methodology used for this result was chemiluminescence using [employer] PSA reagent. Performed By: #### 2 [id number], [id number], [id number] #### [facility] [address] [place] [address] Provider Letteron 06-17-2023 Provider Letter (Inserted Image. Charley ble to display) June 17, 2023 TAN LASSITER [facility] [place] [address] : 1950 Dear Tan, You have an appointment with Dr. Lorenzo Still on 07/02/23 which will need to be rescheduled since he will be out of the office that day. I rescheduled you on 07/05/23 at 10:45. If this time does not work for you please call or stop by the [place] office at your earliest convenience so that we can find a time that would work better for you. Thank you for your prompt attention to this matter. Sincerely, [facility] [address], [place] [address] [facility] Office Visit (Cardiology)on 12-07-2022 Follow-up visit Diagnoses/Problems Assessed Paroxysmal SVT (supraventricular tachycardia) (427.0) (I47.1) COPD (chronic obstructive pulmonary disease) (496) (J44.9) Former smoker (V15.82) (Z87.891) Body mass index (BMI) of 23.0 to 23.9 in adult (V85.1) (Z68.23) Orders Paroxysmal SVT (supraventricular tachycardia) Start: Metoprolol Tartrate 50 MG Oral Tablet; Take 1 tablet daily SocHx: Former smoker Tobacco Use Screening; Status:Complete; Done: [id number] Unlinked Stop: Metoprolol Tartrate 50 MG Oral Tablet Patient Instructions Please bring all medicines, vitamins, and herbal supplements with you when you come to the office. Prescriptions will not be filled unless you are compliant with your follow up appointments or have a follow up appointment scheduled as per instruction of your physician. Refills should be requested at the time of your visit. Follow up as needed only Chief Complaint NATALIE results. History of Present Illness Patient is seen by me for the first time. He apparently was briefly hospitalized in [place] and transferred to [facility]. The original reason for this is unclear. Nonetheless in [facility] he was evaluated with coronary angiography and found to have trivial disease and normal function. For unclear reasons he is now here to see me. He is basically deaf. He has hearing aids but he cannot hear. He states he reads lips and detailed questioning ensued. I specifically asked him about anginal symptoms, heart failure symptoms, and arrhythmia symptomatology. He denies symptoms of pretty much all the way around. He carries a diagnosis of paroxysmal SVT. A 30-day event monitor was performed and it did demonstrate a 6 beat run of SVT but was completely asymptomatic and because of this I am hesitant to recommend adjustments in therapy because of his favorable diagnostic evaluation and findings. Had a long detailed discussion, to the best of our ability, and it appears that his only complaint and her symptoms of shortness of breath. Advised him more than likely is on the basis of his smoking history and COPD and he appears to understand this and I encouraged him to follow-up henceforth with primary care CS only as needed. Surgical History Problems History of Cataract surgery History of Cochlear implant surgery History of Complete colonoscopy 2013 History of Esophagogastroduodenoscopy History of Tonsillectomy Past Medical History Problems No pertinent past medical history Current Meds Medication NameInstruction Advair Diskus 250-50 MCG/DOSE AEPB Atorvastatin Calcium 10 MG Oral Tablettake 1 tablet by mouth at bedtime Bicalutamide 50 MG Oral TabletTAKE 1 TABLET DAILY. Folic Acid 1 MG Oral TabletTAKE 1 TABLET DAILY. Magnesium Oxide 400 MG CAPSTAKE DIRECTED. Metoprolol Tartrate 50 MG Oral TabletTAKE 1 TABLET EVERY 12 HOURS DAILY. Allergies Medication Penicillins Recorded By: Kaushik Cherry; 12/13/2014 10:14:28 AM NonMedication No Known Environmental Allergies Recorded By: Kaushik Cherry; 12/13/2014 10:14:28 AM No Known Food Allergies Recorded By: Kaushik Cherry; 12/13/2014 10:14:28 AM Social History Problems Daily caffeine consumption 8 cups of coffee Former smoker (V15.82) (Z87.891) No alcohol use No illicit drug use Person living alone (V60.3) (Z60.2) Retired Review of Systems Constitutional: not feeling tired. Eyes: no eyesight problems. ENT: no hearing loss and no nosebleeds. Cardiovascular: no intermittent leg claudication and as noted in HPI. Respiratory: no chronic cough and no shortness of breath. Gastrointestinal: no change in bowel habits and no blood in stools. Genitourinary: no urinary frequency and no hematuria. Skin: no skin rashes. Neurological: no seizures and no frequent falls. Psychiatric: no depression and not suicidal. All other systems have been reviewed and are negative for complaint. Vitals Vital Signs Recorded: [id number] 09:32AM Heart Rate72, L Radial Tkekmerg980, LUE, Sitting Mcwkowzxr36, LUE, Sitting Height5 ft 10 in Sbderb238 lb BMI Jkglkzmurn76.24 kg/m2 BSA Calculated1.91 Tobacco Useb) No PHQ-2 #1. Over the last 2 weeks have you felt down, depressed or hopeless? (If yes, answer PHQ-9 below)No PHQ-2 #2. Over the last 2 weeks have you felt little interest or pleasure in doing things? (If yes, answer PHQ-9 below)No Falls Screening (Age 18+)a) No falls within the last year Physical Exam Constitutional: alert and in no acute distress. Eyes: no erythema, swelling or discharge from the eye . Neck: neck is supple, symmetric, trachea midline, no masses and no thyromegaly . Pulmonary: no increased work of breathing or signs of respiratory distress and lungs clear to auscultation. Cardiovascular: carotid pulses 2+ bilaterally with no bruit , JVP was normal, no thrills , regular rhythm, normal S1 and S2, no murmurs , pedal pulses 2+ bilaterally and no edema . Abdomen: abdomen non-tender, no (more content not included)... Normal [employer] Tobacco Screening.on 023 Adult depression screening assessment No [facility] [employer] [address] DO Work Phone: Fall risk assessment a) No falls within the last year [facility] [employer] [address] DO Work Phone: Tobacco use status CPHS b) No [facility] [employer] [address] DO Work Phone: CHEMISTRYOrdered By: SYSTEM SYSTEM on 11-30-2022 Albumin [Mass/Vol] 3.6 g/dL Normal 3.3 - 5.0 gm/dL [facility] Albumin/Globulin [Mass ratio] 1.1 {ratio} Normal 1.1 - 2.2 [facility] ALP [Catalytic activity/Vol] 68 [iU]/d Normal 21 - 98 Int._Unit/ L [facility] ALT No additional P-5'-P [Catalytic activity/Vol] 14 [iU]/d Normal 6 - 46 Int._Unit/ L [facility] Anion gap [Moles/Vol] 14 mmol/L Normal 6 - 16 mEq/L [facility] AST [Catalytic activity/Vol] 19 [iU]/d Normal 5 - 43 Int._Unit/ L [facility] Bilirubin [Mass/Vol] 0.7 mg/dL Normal 0.0 - 1 .1 mg/dL [facility] Calcium [Mass/Vol] 9.4 mg/dL Normal 8.9 - 11. 1 mg/dL [facility] Chloride [Moles/Vol] 103 mmol/L Normal 101 - 1 11 mmol/L [facility] CO2 [Moles/Vol] 27 mmol/L Normal 21 - 31 mmol/L [facility] Creatinine [Mass/Vol] 0.9 mg/dL Normal 0.5 - 1.3 mg/dL [facility] GFR/1.73 sq M.predicted among blacks MDRD (S/P/Bld) [Vol rate/Area] mL/min/1.73 m2 Normal >=59mL/min /1.73 m2 [facility] Chem S GFR/1.73 sq M.predicted among non-blacks MDRD (S/P/Bld) [Vol rate/Area] mL/min/1.73 m2 Normal >=59mL/min /1.73 m2 [facility] Chem S Globulin (S) [Mass/Vol] 3.2 g/dL Normal 1.4 - 4.0 gm/dL [facility] Glucose [Mass/Vol] 94 mg/dL Normal 55 - 199 mg/dL [facility] Potassium [Moles/Vol] 5.0 mmol/L Normal 3.5 - 5.3 mmol/L [facility] Prostate specific Ag [Mass/Vol] 1.8 ng/mL Normal 0.1 - 3.5 ng/mL [facility] Protein [Mass/Vol] 6.8 g/dL Normal 6.0 - 7.8 gm/dL [facility] Sodium [Moles/Vol] 139 mmol/L Normal 135 - 145 mmol/L [facility] Urea nitrogen [Mass/Vol] 18 mg/dL Normal 5 - 21 mg/dL [facility] Urea nitrogen/Creatinine [Mass ratio] 20 mg/mg Normal 10 - 20 [facility] Cardiovasc Arrhythmia Result son 10-29-2022 Cardiovasc Arrhythmia Results Reason For Visit Event Monitor: TAN is here for the application of a 30 day event monitor in office., Diagnosis: PSVT Ordering Physician: Dr. Saldaña Enrollment sent to: [employer] Monitor number [id number] applied. TAN is here for the application of a Ordering Physician: Procedure Event monitor ordered for tachycardia by Dr. Vladislav Saldaña, and the patient was monitored between 10/29/2022 and 11/28/2022. 7 tracings were sent for review. 5 were symptomatic for dyspnea including 1 event of syncope and 2 were not symptomatic. The symptomatic events of dyspnea correlated with normal sinus rhythm and PACs. The syncopal event was associated with normal sinus rhythm and a heart rate of 60 bpm. There was 1 event of narrow complex tachycardia suggestive of atrial fibrillation at a rate of 179 bpm for 20 beats, this episode was not symptomatic Conclusion: 30-day event monitor that revealed 1 episode of narrow complex tachycardia for 20 beats suggestive of atrial fibrillation with RVR heart rate 179 bpm which was not symptomatic. Syncopal event did not correlate with cardiac arrhythmias the patient had normal sinus rhythm with a rate of 60 bpm. Patient's symptoms of dyspnea correlated with normal sinus rhythm with isolated PACs Diagnosis/Problems Assessed Paroxysmal SVT (supraventricular tachycardia) (427.0) (I47.1) Patient Discussion/Summary Strips sent over from [facility] with a patient activated symptom of passed out. Dr. Montelongo was notified. Patient was in sinus rhythm. Sent over to [place] for Dr. Everett to review. per suad--was ordered in hospital per Dr. Saldaña. Applied in [place], Dr. Everett will be the managing physician. Strip given to Dr. Garrett Barr MD to review in Dr. Jc Everett MD absence . Future Appointments Date/TimeProviderSpecialtySi te 12/07/2022 09:50 Jc Hayes, [id number] [facility] [address] 250 DO Signatures Electronically signed by : Leanne Larkin L.P.N.; Nov 03 2022 4:00PM EST (Author) Electronically signed by : Goran Palmer MD; Dec 04 2022 10:16AM EST (Author) Normal [facility] BASIC METABOLIC PANELon 01-0 Anion gap [Moles/Vol] 11 mmol/L Normal 10 - 20 [facility] Comment on above: Performed By: #### B MP ####[facility] [place], [place] [id number] Calcium [Mass/Vol] 8.8 mg/dL Normal 8.6 - 10.3 [facility] Comment on above: Performed By: #### B MP ####[facility] [place], [place] [id number] Chloride [Moles/Vol] 106 mmol/L Normal 98 - 107 [facility] Comment on above: Performed By: #### B MP ####[address] [id number] Creatinine [Mass/Vol] 0.71 mg/dL Normal 0.50 - 1.30 [facility] Comment on above: Performed By: #### B MP ####[address] [id number] eGFR MALE >90 Normal >90 [facility] Comment on above: Result Comment: CALC ULATIONS OF ESTIMATED GFR ARE PERFORMED USING THE 2020 CKD-EPI STUDY REFIT EQUATION WITHOUT THE RACE VARIABLE FOR THE IDMS-TRACEABLE CREATININE METHODS. https://jasn.asnjournals.org/content//ASN.3855889 988 Performed By: #### B MP ####[address] [id number] Glucose [Mass/Vol] 111 mg/dL High 74 - 99 [facility] Comment on above: Performed By: #### B MP ####[address] [id number] HCO3 (Bld) [Moles/Vol] 28 mmol/L Normal 21 - 32 [facility] Comment on above: Performed By: #### B MP ####[address] [id number] Potassium [Moles/Vol] 4.5 mmol/L Normal 3.5 - 5.3 [facility] Comment on above: Performed By: #### B MP ####[address] [id number] Sodium [Moles/Vol] 140 mmol/L Normal 136 - 145 [facility] Comment on above: Performed By: #### B MP ####[address] [id number] Urea nitrogen [Mass/Vol] 19 mg/dL Normal 6 - 23 [facility] Comment on above: Performed By: #### B MP ####[address] [id number] [facility] 2022 Erythrocyte distribution width (RBC) [Ratio] 12.2 % Normal 11.5 - 14.5 [facility] Comment on above: Performed By: #### C BC ####[facility] [place], [place] [id number] Hematocrit (Bld) [Volume fraction] 39.3 % Low 41.0 - 52.0 [facility] Comment on above: Performed By: #### C BC ####[address] [id number] Hemoglobin (Bld) [Mass/Vol] 13.4 g/dL Low 13.5 - 17.5 [facility] Comment on above: Performed By: #### C BC ####[address] [id number] MCHC (RBC) [Mass/Vol] 34.1 g/dL Normal 32.0 - 36.0 [facility] Comment on above: Performed By: #### C BC ####[address] [id number] MCV (RBC) [Entitic vol] 92 fL Normal 80 - 100 [facility] Comment on above: Performed By: #### C BC ####[address] [id number] Platelets (Bld) [#/Vol] 273 10*3/uL Normal 150 - 450 [facility] Comment on above: Performed By: #### C BC ####[address] [id number] RBC 4.25 x10E12/L Low 4.50 - 5.90 [facility] Comment on above: Performed By: #### C BC ####[address] [id number] WBC (Bld) [#/Vol] 7.6 10*3/uL Normal 4.4 - 11.3 [facility] Comment on above: Performed By: #### C ####[facility] [place], [place] [id number] Laboratory - Chemistry and C hemistry - challengeon 2022 Anion gap [Moles/Vol] 11 mmol/L 10 - 20 [facility] [address] DO Work Phone: Calcium [Mass/Vol] 8.8 mg/dL 8.6 - 10.3 [facility] [address] 250 DO Work Phone: [phone] Chloride [Moles/Vol] 106 mmol/L 98 - 107 [facility] [address] 250 DO Work Phone: [phone] CO2 [Moles/Vol] 28 mmol/L 21 - 32 [facility] Matt blakely 250 DO Work Phone: Creatinine [Mass/Vol] 0.71 mg/dL See Below [facility] Matt blakely 250 DO Work Phone: Comment on above: Reference Range: 0.5 0 - 1.30 Glucose [Mass/Vol] 111 mg/dL above high threshold 74 - 99 [facility] Matt [address] 250 DO Work Phone: [phone] Potassium [Moles/Vol] 4.5 mmol/L 3.5 - 5.3 [facility] Matt bl[address] 250 DO Work Phone: [phone] Sodium [Moles/Vol] 140 mmol/L 136 - 145 [facility] [address] 250 DO Work Phone: [phone] Urea nitrogen [Mass/Vol] 19 mg/dL 6 - 23 [facility] Matt [address] 250 DO Work Phone: [phone] Laboratory - Hematology and Cell countson 2022 Erythrocyte distribution width (RBC) [Ratio] 12.2 % See Below [facility] [address] DO Work Phone: Comment on above: Reference Range: 11. 5 - 14.5 Hematocrit (Bld) [Volume fraction] 39.3 % below low threshold See Below [facility] [address] DO Work Phone: Comment on above: Reference Range: 41. 0 - 52.0 Hemoglobin (Bld) [Mass/Vol] 13.4 g/dL below low threshold See Below [facility] Matt Dalton DO Work Phone: Comment on above: Reference Range: 13. 5 - 17.5 MCHC (RBC) [Mass/Vol] 34.1 g/dL See Below [facility] Matt Dalton DO Work Phone: Comment on above: Reference Range: 32. 0 - 36.0 MCV (RBC) [Entitic vol] 92 fL 80 - 100 [facility] Matt Dalton DO Work Phone: Platelets (Bld) [#/Vol] 273 10*3/uL 150 - 450 [facility] Matt Dalton DO Work Phone: RBC (Bld) [#/Vol] 4.25 {x10E12/L} below low threshold See Below [facility] Matt Dalton DO Work Phone: Comment on above: Reference Range: 4.5 0 - 5.90 WBC (Bld) [#/Vol] 7.6 10*3/uL 4.4 - 11.3 [facility] Matt Dalton DO Work Phone: No Panel Informationon 10-25 >90 >90 [facility] Matt Dalton DO Work Phone: Comment on above: CALCULATIONS OF SILVIANO MATED GFR ARE PERFORMED USING THE 2020 CKD-EPI STUDY REFIT EQUATION WITHOUT THE RACE VARIABLE FOR THE IDMS-TRACEABLE CREATININE METHODS.https://jasn.asnjournals.org/content//ASN .8750900529 TROPONIN I, HIGH SENSITIVITY on 2022 TROPONIN I, HIGH SENSITIVITY 61 ng/L Critically high 0 - 20 [facility] Comment on above: Order Comment: Melody SANON to Lanny Peña, 2022 06:42 Result Comment: . Less than 99th percentile of normal range cutoff- Female and children under 18 years old <14 ng/L; Male <21 ng/L: Negative Repeat testing should be performed if clinically indicated. . Female and children under 18 years old 14-50 ng/L; Male 21-50 ng/L: Consistent with possible cardiac damage and possible increased clinical risk. Serial measurements may help to assess extent of myocardial damage. . >50 ng/L: Consistent with cardiac damage, increased clinical risk and myocardial infarction. Serial measurements may help assess extent of myocardial damage. . NOTE: Children less than 1 year old may have higher baseline troponin levels and results should be interpreted in conjunction with the overall clinical context. . NOTE: Troponin I testing is performed using a different testing methodology at [facility] than at other legacy [facility]. Direct result comparisons should only be made within the same method. Called- RB to Lanny Peña, 2022 06:42 Performed By: #### T [facility] ####[facility] [place], [place] [id number] Tropinin I.cardiac panel High sensitivity method 61 ng/L Critically high 0 - 20 -[facility] [address] DO Work Phone: Comment on above: .Less than 99th perc entile of normal range cutoff-Female and children under 18 years old <14 ng/L; Male <21 ng/L: NegativeRepeat testing should be performed if clinically indicated. .Female and children under 18 years old 14-50 ng/L; Male 21-50 ng/L:Consistent with possible cardiac damage and possible increased clinical risk. Serial measurements may help to assess extent of myocardial damage. .>50 ng/L: Consistent with cardiac damage, increased clinical risk andmyocardial infarction. Serial measurements may help assess extent of myocardial damage. . NOTE: Children less than 1 year old may have higher baseline troponin levels and results should be interpreted in conjunction with the overall clinical context. .NOTE: Troponin I testing is performed using a different testing methodology at [facility] than at other [facility]. Direct result comparisons should only be made within the same method. Called- RB to Lanny Peña, 2022 06:42 BASIC METABOLIC PANELon - Anion gap [Moles/Vol] 10 mmol/L Normal 10 - 20 [facility] Comment on above: Performed By: #### B MP ####[facility] [place], [place] [id number] Calcium [Mass/Vol] 8.6 mg/dL Normal 8.6 - 10.3 [facility] Comment on above: Performed By: #### B MP ####[address] [id number] Chloride [Moles/Vol] 106 mmol/L Normal 98 - 107 [facility] Comment on above: Performed By: #### B MP ####[address] [id number] Creatinine [Mass/Vol] 0.82 mg/dL Normal 0.50 - 1.30 [facility] Comment on above: Performed By: #### B MP ####[address] [id number] eGFR MALE >90 Normal >90 [facility] Comment on above: Result Comment: CALC ULATIONS OF ESTIMATED GFR ARE PERFORMED USING THE 2020 CKD-EPI STUDY REFIT EQUATION WITHOUT THE RACE VARIABLE FOR THE IDMS-TRACEABLE CREATININE METHODS. https://jasn.asnjournals.org/content//ASN.9184003 988 Performed By: #### B MP ####[address] [id number] Glucose [Mass/Vol] 114 mg/dL High 74 - 99 [facility] Comment on above: Performed By: #### B MP ####[address] [place], [place] [id number] HCO3 (Bld) [Moles/Vol] 26 mmol/L Normal 21 - 32 [facility] Comment on above: Performed By: #### B MP ####[address] [id number] Potassium [Moles/Vol] 4.2 mmol/L Normal 3.5 - 5.3 [facility] Comment on above: Performed By: #### B MP ####[facility] [place], [place] [phone] Sodium [Moles/Vol] 138 mmol/L Normal 136 - 145 [facility] Comment on above: Performed By: #### B MP ####[facility] [place], [place] [phone] Urea nitrogen [Mass/Vol] 19 mg/dL Normal 6 - 23 [facility] Comment on above: Performed By: #### B MP ####[address] [id number] CBCon 10-24-2022 Erythrocyte distribution width (RBC) [Ratio] 12.5 % Normal 11.5 - 14.5 [facility] Comment on above: Performed By: #### C BC ####[address] [id number] Hematocrit (Bld) [Volume fraction] 38.5 % Low 41.0 - 52.0 [facility] Comment on above: Performed By: #### C BC ####[address] [id number] Hemoglobin (Bld) [Mass/Vol] 13.1 g/dL Low 13.5 - 17.5 [facility] Comment on above: Performed By: #### C BC ####[address] [id number] MCHC (RBC) [Mass/Vol] 34.0 g/dL Normal 32.0 - 36.0 [facility] Comment on above: Performed By: #### C BC ####[address] [id number] MCV (RBC) [Entitic vol] 92 fL Normal 80 - 100 [facility] Comment on above: Performed By: #### C BC ####[address] [id number] Platelets (Bld) [#/Vol] 239 10*3/uL Normal 150 - 450 [facility] Comment on above: Performed By: #### C BC ####[facility] [place], [place] [id number] RBC 4.18 x10E12/L Low 4.50 - 5.90 [facility] Comment on above: Performed By: #### C BC ####[facility] [place], [place] [phone] WBC (Bld) [#/Vol] 7.7 10*3/uL Normal 4.4 - 11.3 [facility] Comment on above: Performed By: #### C BC ####[facility] [place], [place] [id number] Daily Progress Note-Medicine on 10-24-2022 Daily Progress Note-Medicine Service: Medicine Subjective Data: TAN LASSITER is a 71 year old Male who is Hospital Day # 3. Patient seen today. Patient had ultrasound MICHEAL which was negative for PAD. Pt has a rash all over body, from dye, being treated with prednisone and benadryl. Pt denies chest pain or sob. Troponin coming down. Objective Data: Objective Information: T PRBPMAPSpO2 [id number]% Date/Time10/24 7: 7: 7: 7: 7: 7:56 Range(36.3C - 37.2C ) (64 - 82 ) (18 - 18 ) (102 - 152 )/ (54 - 80 ) (74 - 109 ) (93% - 96% ) As of 24-Oct-2022 08:00:00, patient is on 3 L/min of oxygen via nasal cannula. Highest temp of 37.2 C was recorded at 10/23 14:58 Pain reported at 10/24 8:00: 0 = None Physical Exam Narrative: Physical Exam: General: well developed male, in NAD HEENT: AT, NC, no JVD, no LAP, neck supple Lungs: clear, no wheezing Cardiac: NSR, no murmur Abdomen: soft, non tender, no distension, +BS Ext: no edema, no deformity, erythema on the b/l feet and around the heels, diminished pulses in LEs Neurological: AAOx3, sensation intact, no hearing Skin: Rash all over body (reaction to dye) Medication: Medications: Continuous Medications ---- No continuous medications are active Scheduled Medications ---- 1. Aspirin Chewable: 81 mg Oral Daily 2. Atorvastatin: 40 mg Oral Daily 3. diphenhydrAMINE: 25 mg Oral Every 24 Hours 4. Enoxaparin SubCutaneous: 40 mg SubCutaneous Every 24 Hours 5. Magnesium Oxide: 400 mg Oral Daily 6. Metoprolol Tartrate: 50 mg Oral 2 Times a Day 7. predniSONE: 40 mg Oral Every 12 Hours PRN Medications ---- 1. Acetaminophen: 650 mg Oral Every 6 Hours 2. Nitroglycerin SubLingual: 0.4 mg SubLingual Every 5 Minutes 3. Sodium Chloride 0.9% Injectable Flush: 10 mL IntraVenous Flush Every 8 Hours and as Needed Recent Lab Results: Results: CBC: 10/24/2022 05:38 \ Hgb / \ 13.1 L / WBC Plt 7.7 239 / Hct \ / 38.5 L \ RBC: 4.18 L MCV: 92 BMP: 10/24/2022 05:38 NA+ Cl- BUN / 138 106 19 / ---- Glucose 114 H K+ HCO3- Creat \ 4.2 26 0.82 \ Calcium : 8.6 Anion Gap : 10 Radiology Results: Results: Conclusion: Preliminary Cardiology Report [address] [address] Preliminary Vascular Lab Report PVR MICHEAL Patient Name: TAN LASSITER Reading Physician: [id number] Kylah Copeland MD, RPVI Study Date: 10/24/2022 Referring Physician: JANINE OPALALVIN MRN/PID: [id number] PCP: Accession/Order#: [id number] CC Report to: Date of : 1950 Technologist: Jacqueline Forman RDMS Gender: M Technologist 2: Admission Status: Inpatient Location Performed: [facility] Diagnosis/ICD: I73.9-Peripheral vascular disease, unspecified Procedure/CPT: 26895 Peripheral artery MICHEAL Only-31391 Smoker: Former, 1ppd x 40yrs. Pertinent History: COPD, HTN, Hyperlipidemia and Cancer. cold sensation in both legs and feet. PRELIMINARY CONCLUSIONS: Right Lower PVR: No evidence of arterial occlusive disease in the right lower extremity at rest. Normal digital perfusion noted. Biphasic flow is noted in the right posterior tibial artery. Triphasic flow is noted in the right common femoral artery and right dorsalis pedis artery. Left Lower PVR: No evidence of arterial occlusive disease in the left lowerextremity at rest. Normal digital perfusion noted. Biphasic flow is noted in the left dorsalis pedis artery and left posterior tibial artery. Triphasic flow is noted in the left common femoral artery. Imaging & Doppler Findings: RIGHT Lower PVR Pressures Ratios Right Posterior Tibial (Ankle) 157 mmHg 1.17 Right Dorsalis Pedis (Ankle) 163 mmHg 1.22 Right Digit (Great Toe) 145 mmHg 1.08 LEFT Lower PVR Pressures Ratios Left Posterior Tibial (Ankle) 168 mmHg 1.25 Left Dorsalis Pedis (Ankle) 173 mmHg 1.29 Left Digit (Great Toe) 122 mmHg 0.91 Right Left Brachial Pressure 132 mmHg 134 mmHg VASCULAR PRELIMINARY REPORT completed by Jacqueline Forman RDMS on 10/24/2022 at 11:26:46 AM Preliminary VASC LAB PVR MICHEAL only [Oct 24 2022 11:26AM] Conclusion: CONCLUSIONS: 1. Left ventricular systolic function is normal with a 60-65% estimated ejection fraction. 2. Spectral Doppler shows an impaired relaxation pattern of left ventricular diastolic filling. 3. There is no evidence of mitral valve stenosis. 4. Mild tricuspid regurgitation is visualized. 5. Aortic valve stenosis is not present. 6. The main pulmonary artery is normal in size, and position, with normal bifurcation into the left and right pulmonary arteries. QUANTITATIVE DATA SUMMARY: 2D MEASUREMENTS: Normal Ranges (more content not included)... Normal [facility] Laboratory - Chemistry and C hemistry - challengeon 10-24-2022 Anion gap [Moles/Vol] 10 mmol/L 10 - 20 [facility] Matt blakely [address] DO Work Phone: [phone] Calcium [Mass/Vol] 8.6 mg/dL 8.6 - 10.3 [facility] Matt blakely [address] DO Work Phone: [phone] Chloride [Moles/Vol] 106 mmol/L 98 - 107 [facility] Matt blakely 250 DO Work Phone: [phone] CO2 [Moles/Vol] 26 mmol/L 21 - 32 [facility] Matt blakely [facility] DO Work Phone: [phone] Creatinine [Mass/Vol] 0.82 mg/dL See Below [facility] Matt blakely [facility] DO Work Phone: [phone] Comment on above: Reference Range: 0.5 0 - 1.30 Glucose [Mass/Vol] 114 mg/dL above high threshold 74 - 99 [facility] Matt Dalton DO Work Phone: [phone] Potassium [Moles/Vol] 4.2 mmol/L 3.5 - 5.3 [facility] Matt Dalton DO Work Phone: [phone] Sodium [Moles/Vol] 138 mmol/L 136 - 145 [facility] Matt Dalton DO Work Phone: [phone] Urea nitrogen [Mass/Vol] 19 mg/dL 6 - 23 [facility] Matt blakely [facility] DO Work Phone: [phone] Laboratory - Hematology and Cell countson 10-24-2022 Erythrocyte distribution width (RBC) [Ratio] 12.5 % See Below [facility] Matt Dalton DO Work Phone: [phone] Comment on above: Reference Range: 11. 5 - 14.5 Hematocrit (Bld) [Volume fraction] 38.5 % below low threshold See Below [facility] Matt [facility] DO Work Phone: [phone] Comment on above: Reference Range: 41. 0 - 52.0 Hemoglobin (Bld) [Mass/Vol] 13.1 g/dL below low threshold See Below [facility] KlangooMary Ellen Dalton DO Work Phone: Comment on above: Reference Range: 13. 5 - 17.5 MCHC (RBC) [Mass/Vol] 34.0 g/dL See Below [facility] Matt Dalton DO Work Phone: Comment on above: Reference Range: 32. 0 - 36.0 MCV (RBC) [Entitic vol] 92 fL 80 - 100 [facility] Matt blakely 250 DO Work Phone: [phone] Platelets (Bld) [#/Vol] 239 10*3/uL 150 - 450 [facility] Matt Dalton DO Work Phone: RBC (Bld) [#/Vol] 4.18 {x10E12/L} below low threshold See Below [facility] Matt Dalton DO Work Phone: Comment on above: Reference Range: 4.5 0 - 5.90 WBC (Bld) [#/Vol] 7.7 10*3/uL 4.4 - 11.3 [facility] Matt blakely 250 DO Work Phone: No Panel Informationon 10-24 >90 >90 [facility] Matt Dalton DO Work Phone: Comment on above: CALCULATIONS OF SILVIANO MATED GFR ARE PERFORMED USING THE 2020 CKD-EPI STUDY REFIT EQUATION WITHOUT THE RACE VARIABLE FOR THE IDMS-TRACEABLE CREATININE METHODS.https://jasn.asnjournals.org/content/early//ASN .2373866248 VASC LAB PVR MICHEAL onlyon VASC LAB PVR MICHE[place] only [place] [id number] Vascular Lab Report PVR MICHEAL Patient Name: TAN Montes De Oca Physician: [id number] Kylah Copeland MD, RPVI Study Date: 10/24/2022 Referring Physician: JANINE HAQ MRN/PID: [id number] PCP: Accession/Order#: [id number] CC Report to: Date of : 1950 Technologist: Jacqueline Forman RDMS Gender: M Technologist 2: Admission Status: Inpatient Location Performed: [facility] Diagnosis/ICD: I73.9-Peripheral vascular disease, unspecified Procedure/CPT: 33239 Peripheral artery MICHEAL Only-90933 Smoker: Former, 1ppd x 40yrs. Pertinent History: COPD, HTN, Hyperlipidemia and Cancer. cold sensation in both legs and feet. CONCLUSIONS: Right Lower PVR: No evidence of arterial occlusive disease in the right lower extremity at rest. Normal digital perfusion noted. Biphasic flow is noted in the right posterior tibial artery. Triphasic flow is noted in the right common femoral artery and right dorsalis pedis artery. Left Lower PVR: No evidence of arterial occlusive disease in the left lower extremity at rest. Normal digital perfusion noted. Biphasic flow is noted in the left dorsalis pedis artery and left posterior tibial artery. Triphasic flow is noted in the left common femoral artery. Imaging \EANDE\ Doppler Findings: RIGHT Lower PVR Pressures Ratios Right Posterior Tibial (Ankle) 157 mmHg 1.17 Right Dorsalis Pedis (Ankle) 163 mmHg 1.22 Right Digit (Great Toe) 145 mmHg 1.08 LEFT Lower PVR Pressures Ratios Left Posterior Tibial (Ankle) 168 mmHg 1.25 Left Dorsalis Pedis (Ankle) 173 mmHg 1.29 Left Digit (Great Toe) 122 mmHg 0.91 Right Left Brachial Pressure 132 mmHg 134 mmHg [id number] Kylah Copeland MD, RPDL Final Normal [facility] VASC LAB PVR MICHEAL only -[facility] [address] DO Work Phone: BNPon 10-23-2022 Natriuretic peptide B (Bld) [Mass/Vol] 284 pg/mL High 0 - 99 [facility] Comment on above: Result Comment: . <1 00 pg/mL - Heart failure unlikely 100-299 pg/mL - Intermediate probability of acute heart . failure exacerbation. Correlate with clinical . context and patient history. >=300 pg/mL - Heart Failure likely. Correlate with clinical . context and patient history. BNP testing is performed using different testing methodology at [facility] than at other legacy [facility]. Direct result comparisons should only be made within the same method. Performed By: #### B NP2 ####[address] [id number] CBC AND DIFFERENTIALon 10-23 % AUTOMATED IMMATURE GRAN 0.2 % Normal 0.0 - 0.9 [facility] Comment on above: Result Comment: Renetta ture Granulocyte Count (IG) includes promyelocytes, myelocytes and metamyelocytes but does not include bands. Percent differential counts (%) should be interpreted in the context of the absolute cell counts (cells/L). Performed By: #### C BCDF ####[address] [id number] Basophils (Bld) [#/Vol] 0.04 10*3/uL Normal 0.00 - 0.10 [facility] Comment on above: Performed By: #### C BCDF ####[address] [id number] Basophils/100 WBC (Bld) 0.5 % Normal 0.0 - 2.0 [facility] Comment on above: Performed By: #### C BCDF ####[address] [id number] Eosinophils (Bld) [#/Vol] 0.14 10*3/uL Normal 0.00 - 0.40 [facility] Comment on above: Performed By: #### C BCDF ####[address] [id number] Eosinophils/100 WBC (Bld) 1.7 % Normal 0.0 - 6.0 [facility] Comment on above: Performed By: #### C BCDF ####[address] [id number] Erythrocyte distribution width (RBC) [Ratio] 12.7 % Normal 11.5 - 14.5 [facility] Comment on above: Performed By: #### C BCDF ####[facility] [place], [place] [id number] Hematocrit (Bld) [Volume fraction] 37.5 % Low 41.0 - 52.0 [facility] Comment on above: Performed By: #### C BCDF ####[address] [place], [place] [id number] Hemoglobin (Bld) [Mass/Vol] 12.6 g/dL Low 13.5 - 17.5 [facility] Comment on above: Performed By: #### C BCDF ####[address] [place], [place] [id number] Lymphocytes (Bld) [#/Vol] 0.71 10*3/uL Low 0.80 - 3.00 [facility] Comment on above: Performed By: #### C BCDF ####[address] [id number] Lymphocytes/100 WBC (Bld) 8.8 % Normal 13.0 - 44.0 [facility] Comment on above: Performed By: #### C BCDF ####[address] [id number] MCHC (RBC) [Mass/Vol] 33.6 g/dL Normal 32.0 - 36.0 [facility] Comment on above: Performed By: #### C BCDF ####[address] [id number] MCV (RBC) [Entitic vol] 94 fL Normal 80 - 100 [facility] Comment on above: Performed By: #### C BCDF ####[address] [id number] Monocytes (Bld) [#/Vol] 0.48 10*3/uL Normal 0.05 - 0.80 [facility] Comment on above: Performed By: #### C BCDF ####[address] [id number] Monocytes/100 WBC (Bld) 6.0 % Normal 2.0 - 10.0 [facility] Comment on above: Performed By: #### C BCDF ####[address] [place], [place] [id number] Neutrophils (Bld) [#/Vol] 6.65 10*3/uL High 1.60 - 5.50 [facility] Comment on above: Performed By: #### C BCDF ####[address] [id number] Neutrophils/100 WBC (Bld) 82.8 % Normal 40.0 - 80.0 [facility] Comment on above: Performed By: #### C BCDF ####[address] [id number] Platelets (Bld) [#/Vol] 232 10*3/uL Normal 150 - 450 [facility] Comment on above: Performed By: #### C BCDF ####[address] [id number] RBC 3.99 x10E12/L Low 4.50 - 5.90 [facility] Comment on above: Performed By: #### C BCDF ####[address] [id number] WBC (Bld) [#/Vol] 8.0 10*3/uL Normal 4.4 - 11.3 [facility] Comment on above: Performed By: #### C BCDF ####[address] [id number] COMPREHENSIVE PANELon 2022 Albumin [Mass/Vol] 3.1 g/dL Low 3.4 - 5.0 [facility] Comment on above: Performed By: #### C MP ####[address] [id number] ALP [Catalytic activity/Vol] 48 U/L Normal 33 - 136 [facility] Comment on above: Performed By: #### C MP ####[address], [place] [id number] ALT [Catalytic activity/Vol] 52 U/L Normal 10 - 52 [facility] Comment on above: Result Comment: Sarah ents treated with Sulfasalazine may generate falsely decreased results for ALT. Performed By: #### C MP ####[facility] [place] [id number] Anion gap [Moles/Vol] 11 mmol/L Normal 10 - 20 [facility] Comment on above: Performed By: #### C MP ####[facility] [place] [address] [id number] AST [Catalytic activity/Vol] 29 U/L Normal 9 - 39 [facility] Comment on above: Performed By: #### C MP ####[address] [id number] Bilirubin [Mass/Vol] 0.3 mg/dL Normal 0.0 - 1.2 [facility] Comment on above: Performed By: #### C MP ####[address] [id number] Calcium [Mass/Vol] 8.5 mg/dL Low 8.6 - 10.3 [facility] Comment on above: Performed By: #### C MP ####[address] [id number] Chloride [Moles/Vol] 109 mmol/L High 98 - 107 [facility] Comment on above: Performed By: #### C MP ####[address] [id number] Creatinine [Mass/Vol] 0.85 mg/dL Normal 0.50 - 1.30 [facility] Comment on above: Performed By: #### C MP ####[address] [id number] eGFR MALE >90 Normal >90 [facility] Comment on above: Result Comment: CALC ULATIONS OF ESTIMATED GFR ARE PERFORMED USING THE 2020 CKD-EPI STUDY REFIT EQUATION WITHOUT THE RACE VARIABLE FOR THE IDMS-TRACEABLE CREATININE METHODS. https://jasn.asnjournals.org/content//ASN.3839822 988 Performed By: #### C MP ####[address] [id number] Glucose [Mass/Vol] 101 mg/dL High 74 - 99 [facility] Comment on above: Performed By: #### C MP ####[address] [place], [place] [phone] HCO3 (Bld) [Moles/Vol] 24 mmol/L Normal 21 - 32 [facility] Comment on above: Performed By: #### C MP ####[address] [place], [place] [id number] Potassium [Moles/Vol] 4.5 mmol/L Normal 3.5 - 5.3 [facility] Comment on above: Performed By: #### C MP ####[address] [id number] Protein [Mass/Vol] 5.9 g/dL Low 6.4 - 8.2 [facility] Comment on above: Performed By: #### C MP ####[address] [id number] Sodium [Moles/Vol] 139 mmol/L Normal 136 - 145 [facility] Comment on above: Performed By: #### C MP ####[address] [place], [place] [id number] Urea nitrogen [Mass/Vol] 29 mg/dL High 6 - 23 [facility] Comment on above: Performed By: #### C MP ####[address] [id number] Complete Blood Count + Diffe rentialon 10-23-2022 Basophils/100 WBC (Bld) 0.5 % 0.0 - 2.0 [facility] Work Phone: Erythrocyte distribution width (RBC) [Ratio] 12.7 % See Below [facility] esolidarSusan [place] Work Phone: [phone] Comment on above: Reference Range: 11. 5 - 14.5 Hematocrit (Bld) [Volume fraction] 37.5 % below low threshold See Below [facility] [place] Work Phone: [phone] Comment on above: Reference Range: 41. 0 - 52.0 Hemoglobin (Bld) [Mass/Vol] 12.6 g/dL below low threshold See Below [facility] [place] Work Phone: [phone] Comment on above: Reference Range: 13. 5 - 17.5 Lymphocytes/100 WBC (Bld) 8.8 % See Below [facility] [employer] Work Phone: [phone] Comment on above: Reference Range: 13. 0 - 44.0 MCHC (RBC) [Mass/Vol] 33.6 g/dL See Below [facility] [employer] Work Phone: [phone] Comment on above: Reference Range: 32. 0 - 36.0 MCV (RBC) [Entitic vol] 94 fL 80 - 100 [facility] [employer] Work Phone: [phone] Monocytes/100 WBC (Bld) 6.0 % 2.0 - 10.0 [facility] [employer] Work Phone: [phone] Neutrophils/100 WBC (Bld) 82.8 % See Below [facility] Work Phone: [phone] Comment on above: Reference Range: 40. 0 - 80.0 Platelets (Bld) [#/Vol] 232 10*3/uL 150 - 450 [facility] [employer] Work Phone: [phone] RBC (Bld) [#/Vol] 3.99 {x10E12/L} below low threshold See Below [facility] [employer] Work Phone: [phone] Comment on above: Reference Range: 4.5 0 - 5.90 WBC (Bld) [#/Vol] 8.0 10*3/uL 4.4 - 11.3 [facility] Work Phone: Complete Blood Count + Differential 0.04 {x10E9/L} See Below [facility] Work Phone: Comment on above: Reference Range: 0.0 0 - 0.10 Complete Blood Count + Differential 0.14 {x10E9/L} See Below [facility] Work Phone: Comment on above: Reference Range: 0.0 0 - 0.40 Complete Blood Count + Differential 0.48 {x10E9/L} See Below [facility] Work Phone: Comment on above: Reference Range: 0.0 5 - 0.80 Complete Blood Count + Differential 0.71 {x10E9/L} below low threshold See Below [facility] Work Phone: Comment on above: Reference Range: 0.8 0 - 3.00 Complete Blood Count + Differential 6.65 {x10E9/L} above high threshold See Below [facility] Work Phone: Comment on above: Reference Range: 1.6 0 - 5.50 Complete Blood Count + Differential 1.7 % 0.0 - 6.0 [facility] Work Phone: [phone] Complete Blood Count + Differential 0.2 % 0.0 - 0.9 [facility] Work Phone: [phone] Comment on above: Immature Granulocyte Count (IG) includes promyelocytes, myelocytes and metamyelocytes but does not include bands. Percent differential counts (%) should be interpreted in the context of the absolute cell counts (cells/L). Consult-Podiatryon 3 Consult-Podiatry Service: Service: Podiatry Consult: Consult requested by (Attending Name): Naldo Castillo Reason: erythma of feet History of Present Illness: HPI: TAN LASSITER is a 71 year old Male With PMH including but not limited to deafness, chronic respiratory failure on home oxygen, HLD, prostate cancer, admitted for NSTEMI and new onset A. fib, podiatry consulted for erythema of feet bilateral. Patient is hard of hearing which limits history. No family available in room. Patient states that he has cold sensations in his feet, is unable to get his feet warm. Does admit to cramping in the legs and feet at night and at rest with elevation. He has increased redness to both legs and feet as well as the trunk and chest for the last several days since admission. He states it was not present prior to admission and relates associated itchiness. No open lesions or drainage. No prior treatment. No constitutional symptoms. No other pedal complaints. Denies history of smoking, denies history of diabetes. Review Family/Social History and ROS: Social History: Smoking Status: former smoker (1) Alcohol Use: denies(1) Drug Use: denies (1) Drug 2 Use: denies (1) Allergies: penicillin: Rash Objective: Objective Information: T PRBPMAPSpO2 Value36.79621501/892527% Date/Time10/23 7:6 7: 12:301/6 7:401/6 7:401/6 7:40 Range(36.2C - 37C ) (65 - 82 ) (14 - 18 ) (97 - 137 )/ (51 - 71 ) (72 - 96 ) (93% - 97% ) As of 23-Oct-2022 10:02:00, patient is on 3 L/min of oxygen via nasal cannula. Highest temp of 37 C was recorded at 10/22 9:43 Physical Exam Narrative: Physical Exam: Vascular: DP and PT pulses palpable b/l. CFT <3 seconds to digits b/l. Decreased hair growth noted. No varicosities. Derm: There is well-defined blanching erythema with increased warmth noted to the thighs proximal to the knee, extending to the mid trunk on the anterior abdomen. This is with associated increased warmth. Bilateral lower extremities below the knees without erythema or increased warmth. No edema. No open lesions or drainage. No hyperkeratosis. Webspaces 1-4 b/l clean, dry, and intact. MSK: 5/5 strength to bilateral lower extremity muscle groups. No gross deformities noted. Neuro: Light touch intact bilateral. No clonus noted. No babinski. Medications: Medications: Continuous Medications ---- No continuous medications are active Scheduled Medications ---- 1. Aspirin Chewable: 81 mg Oral Daily 2. Atorvastatin: 40 mg Oral Daily 3. Enoxaparin SubCutaneous: 40 mg SubCutaneous Every 24 Hours 4. Metoprolol Tartrate: 50 mg Oral 2 Times a Day PRN Medications ---- 1. Acetaminophen: 650 mg Oral Every 6 Hours 2. Nitroglycerin SubLingual: 0.4 mg SubLingual Every 5 Minutes 3. Sodium Chloride 0.9% Injectable Flush: 10 mL IntraVenous Flush Every 8 Hours and as Needed Recent Lab Results: Results: I have reviewed these laboratory results: Complete Blood Count + Differential 23-Oct-2022 05:42:00 ResultValue White Blood Cell Count 8.0 Red Blood Cell Count 3.99 L HGB 12.6 L HCT 37.5 L MCV 94 MCHC 33.6 PLT 232 RDW-CV 12.7 Neutrophil % 82.8 Immature Granulocytes % 0.2 Lymphocyte % 8.8 Monocyte % 6.0 Eosinophil % 1.7 Basophil % 0.5 Neutrophil Count 6.65 H Lymphocyte Count 0.71 L Monocyte Count 0.48 Eosinophil Count 0.14 Basophil Count 0.04 Comprehensive Metabolic Panel Trending View [id number] 05:42:00 22-Oct-2022 05:50:00 Glucose, Mtapq324 H 144 H NA139 138 K4.5 4.2 CL109 H 108 H Bicarbonate, Serum24 24 Anion Gap, Serum11 10 BUN29 H 22 CREAT0.85 0.95 GFR Male>90 84 Calcium, Serum8.5 L 8.6 ALB3.1 L 3.5 ALKP48 58 T Pro5.9 L 6.5 T Bili0.3 0.4 Alanine Aminotransferase, Serum52 89 H Aspartate Transaminase, Serum29 86 H Hemoglobin A1C, Level 23-Oct-2022 05:42:00 ResultValue Estimated Average Glucose 103 Hemoglobin A1C, Level 5.2 Diagnosis of Diabetes-Adults Non-Diabetic: < or = 5.6% Increased risk for developing diabetes: 5.7-6.4% Diagnostic of diabetes: > or = 6.5%. Monitoring of Diabetes Age (y) Therapeutic Goal (%) Adults: >1 Complete Blood Count 22-Oct-2022 05:50:00 ResultValue White Blood Cell Count 15.3 H Red Blood Cell Count 4.23 L HGB 13.3 L HCT 38.7 L MCV 91 MCHC 34.4 PLT 263 RDW-CV 12.4 Assessment: 71-year-old male with recent NSTEMI, new onset A. fib, with recent cardiac catheterization. Podiatry consulted for bilateral lower extremity erythema. Patient seen and examined. Discussed findings with patient. At this time, erythema does not extend to bilateral lower extremities below knee and is consistent with possible systemic allergic reaction. Patient states that the onset began with hospital admission. Would recommend work-up for other possibl (more content not included)... Normal [facility] Daily Progress Note-Cardiolo trevon 10-23-2022 Daily Progress Note-Cardiology Consult Type: subsequent visit/care Service: Cardiology Subjective Data: TAN LASSITER is a 71 year old Male who is Hospital Day # 2. 10/22/2022 cardiology consult: HPI: TAN LASSITER is a 71 year old Male who is hearing impaired was transferred from [facility] to [facility] on 10/22/2022 after presenting to [facility] emergency department with chief complaint of chest pain. Patient has history of deafness/hearing impairment and history of remote cochlear implant, he reads lips for communication. No family is present at time of cardiology consult. Information for consult obtained from speaking to patient and from review of paperwork sent from [facility] ED. 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 Yesterday he was getting ready to go to [place] for a [place] study and had sudden onset of feeling very cold, chills, shaking and had a pushing/pressure sensation to his mid chest that radiated to his arm and neck. He denies associated diaphoresis, palpitations, dizziness or lightheadedness. He states that he did feel like he was not getting enough air and that his abdomen was full and caused him to feel nauseous. In the emergency department initial EKG showed questionable atrial fibrillation with rapid ventricular rate with heart rate 130 bpm, there is artifact making tracing difficult to interpret. EKG reviewed with Dr. Saldaña who feels was sinus tachycardia with paroxysmal supraventricular tachycardia. Subsequent EKG showed sinus rhythm with frequent PACs, heart rate 98 bpm. Initial high-sensitivity troponin was 14.6 (reference range 4.0-76.1) subsequent troponin 441, 990, 1342. NT proBNP was 372 which was normal. White count 4.6, hemoglobin 14.7, 43.2, platelet count 272, sodium 138, potassium 4.0, chloride 102, CO2 29.6, glucose 102, BUN 17, creatinine 0.89, estimated GFR greater than 60, negative influenza and COVID screening. Portable chest x-ray showed clear lungs. In [place] emergency room patient was given Tylenol, aspirin, IV Cardizem, subcutaneous Lovenox, IV steroids, morphine, Zofran, IV fluids, and nebulizer. He converted to sinus rhythm. He was transferred to [facility] for further evaluation. This morning at time of cardiology consult patient states that he feels better, does not have pain in his chest or shortness of breath currently. Patient describes that he has had similar symptoms in the past over the last couple years and has been hospitalized but no cardiac testing was performed to his knowledge, he has been treated for pneumonia and given oxygen in the past. He follows with a primary care provider and oncologist for his prostate cancer, denies having any current cardiology care. [facility] heart cardiology consult was placed for evaluation of non-STEMI. Past medical history patient denies history of coronary artery disease, arrhythmia including atrial fibrillation, history of stroke, diabetes, thyroid disease, peptic ulcer disease or GI bleed. He has past medical history of hypertension, high cholesterol, prostate cancer for which he is taking an oral medication daily and followed by an oncologist, COPD, wears home oxygen at times, former tobacco use listed as 63-weyx-cpot history patient states that he quit smoking at age 56. He denies alcohol or drug use. Past surgical history is cochlear implant and tonsillectomy as a child Social history former smoker, no alcohol or drug use. Lives alone and is independent with activities of daily living Family history parents both , no history of cardiovascular disease, both had lymphoma. Patient has 3 half-brothers with some sort of cardiac history patient was not able to provide details. Overnight Events: Patient had an uneventful night. Additional Information: Patient complains of persistent cough productive of thick mucus. Has occasional shortness of breath. Denies chest pain, palpitations, nausea, vomiting, pain at right femoral artery access site from cardiac catheterization. Cardiac catheterization performed on 10/22 showed minimal coronary artery disease, normal LVEF. Transthoracic echocardiogram with preserved LV function with diastolic dysfunction, no significant valvular abnormality. Review of telemetry shows sinus rhythm with occasional brief PSVT Objective Data: Objective Information: T PRBPMAPSpO2 [id number]% Date/Time10/23 7: 7: 12: 7: 7: 7:40 Range(36.2C - 37C ) (65 - 82 ) (14 - 18 ) (97 - 137 )/ (51 - 71 ) (72 - 96 ) (93% - 97% ) As of 22-Oct-2022 21:23:00, patient is on 3 L/min of oxygen via nasal cannula. Highest temp of 37 C was recorded at (more content not included)... Normal [facility] Daily Progress Note-General Internal Medicineon 10-23-2022 Daily Progress Note-General Internal Medicine Service: General Internal Medicine Subjective Data: TAN LASSITER is a 71 year old Male who is Hospital Day # 2. Patient seen and examined. He is complaining of some pain in his legs, denies any further episodes of chest pain,No fever or chills no new shortness of breath. Objective Data: Objective Information: T PRBPMAPSpO2 [id number]% Date/Time10/23 7: 7: 12: 7: 7: 7:40 Range(36.2C - 37C ) (65 - 82 ) (14 - 18 ) (97 - 137 )/ (51 - 71 ) (72 - 96 ) (93% - 97% ) As of 23-Oct-2022 10:02:00, patient is on 3 L/min of oxygen via nasal cannula. Highest temp of 37 C was recorded at 10/22 9:43 Pain reported at 10/23 10:02: 0 = None Physical Exam Narrative: Physical Exam: General: well developed male, in NAD HEENT: AT, NC, no JVD, no LAP, neck supple Lungs: clear, no wheezing Cardiac: NSR, no murmur Abdomen: soft, non tender, no distension, +BS Ext: no edema, no deformity, erythema on the b/l feet and around the heels, diminished pulses in LEs Neurological: AAOx3, sensation intact, no hearing Recent Lab Results: Results: CBC: 10/23/2022 05:42 \ Hgb / \ 12.6 L / WBC Plt 8.0 232 / Hct \ / 37.5 L \ RBC: 3.99 L MCV: 94 Neutrophil %: 82.8 CMP: 10/23/2022 05:42 NA+ Cl- BUN / 139 109 H 29 H / ---- Glucose 101 H K+ HCO3- Creat \ 4.5 24 0.85 \ \ T Bili / \ 0.3 / AST x ---- x ALT 29 x ---- x 52 / Alk P \ / 48 \ Calcium : 8.5 L Anion Gap : 11 Albumin : 3.1 L T Protein : 5.9 L Assessment and Plan: Code Status: Code StatusFull Code Assessment: TAN LASSITER is a 71 year old Male, legally deaf, from home with a PMH of chronic respiratory failure on home Oxygen as needed, HLD, prostate cancer, and sensorineural hearing loss who was admitted for the management of NSTEMI and new onset Afib He did not have any significant stenosis on cardiac cath Vitally he has remained stable He has a prolonged QT with sensorineural deafness could be congenital Continue to monitor He is otherwise doing well but it seems like he is developed a generalized body rash Could be allergic reaction to dye I will start him on Benadryl and prednisone 1 mg/kg of body weight We will observe him overnight If the rash gets better consider discharge tomorrow He will need to follow-up with cardiology Continue aspirin, statin, metoprolol DVT prophylaxis Electronic Signatures: Ricardo Myers) (Signed 23-Oct-2022 11:16) Authored: Service, Subjective Data, Objective Data, Assessment and Plan, Note Completion Last Updated: 23-Oct-2022 11:16 by Ricardo Myers) Normal [facility] Discharge Toonkbi3am 023 Discharge Profile2 Discharge Orders: Anticipated Discharge Date: Anticipated Discharge [id number] DNAR: Code Status at Discharge: Full Code Provider FINAL REVIEW of Orders: Final Review: Final Review of Medication Reconciliation and Orders Completedby Physician Reviewing ProviderFeng Winston MD at 25-Oct-2022 10:39:39 Appointments: Follow-Up Appointment 02: Physician/Dept/[id number] event monitor Reason for ReferralMonitor heart rhythm Call to Schedule inPlease call the office on Wednesday to schedule these appointments [facility] heart [facility] in [place] Phone [phone] Follow-Up Appointment 03: Physician/Dept/ServiceDr. Everett- Ethnoarchaeologist Reason for Referraldiscuss report of event monitor [facility] heart office in [place] Electronic Signatures: Jaylin Gerard (PHARMACIST MANAGER-WELFARE ELIGIBILITY INTERVIEWER) (Signed 23-Oct-2022 14:53) Authored: Discharge Orders, Appointments, Gold Form - Attending Physician Summary Feng Winston) (Signed 25-Oct-2022 10:39) Authored: Discharge Orders, Provider FINAL REVIEW of Orders Last Updated: 25-Oct-2022 10:39 by Feng Wisnton) Normal [facility] HEMOGLOBIN A1Con 10-23-2022 Glucose [Mass/Vol] 103 mg/dL [facility] Comment on above: Performed By: #### H BA1E ####[id number] [place] [address] HbA1c (Bld) [Mass fraction] 5.2 % Normal [facility] Comment on above: Result Comment: Diag nosis of Diabetes-Adults Non-Diabetic: < or = 5.6% Increased risk for developing diabetes: 5.7-6.4% Diagnostic of diabetes: > or = 6.5% . Monitoring of Diabetes Age (y) Therapeutic Goal (%) Adults: >18 <7.0 Pediatrics: 13-18 <7.5 7-12 <8.0 0- 6 7.5-8.5 [place] [employer]. Diabetes Care 33(S1), Oct 2009. Performed By: #### H BA1E ####[id number] [place] [address] Hemoglobin A1Con 10-23-2022 Glucose [Mass/Vol] 103 mg/dL [facility] Work Phone: HbA1c (Bld) [Mass fraction] 5.2 % [facility] Work Phone: Comment on above: Diagnosis of Diabete s-Adults Non-Diabetic: < or = 5.6% Increased risk for developing diabetes: 5.7-6.4% Diagnostic of diabetes: > or = 6.5%. Monitoring of Diabetes Age (y) Therapeutic Goal (%) Adults: >18 <7.0 Pediatrics: 13-18 <7.5 7-12 <8.0 0- 6 7.5-8.5 [place] [employer]. Diabetes Care 33(S1), Oct 2009. LIPID PANEL (CORONARY RISK 2 )on 10-23-2022 Cholesterol [Mass/Vol] 129 mg/dL Normal 0 - 199 [facility] Comment on above: Result Comment: . AGE DESIRABLE BORDERLINE HIGH HIGH 0-19 Y 0 - 169 170 - 199 >/= 200 20-24 Y 0 - 189 190 - 224 >/= 225 >24 Y 0 - 199 200 - 239 >/= 240 All ranges are based on fasting samples. Specific therapeutic targets will vary based on patient-specific cardiac risk. . Pediatric guidelines reference:Pediatrics 2011, 128(S5). Adult guidelines reference: NCEP ATPIII Guidelines, ETELVINA 2001, 258:2486-97 . Venipuncture immediately after or during the administration of Metamizole may lead to falsely low results. Testing should be performed immediately prior to Metamizole dosing. Performed By: #### L IPID ####[id number] [place], [place] [id number] Cholesterol in HDL [Mass/Vol] 36.8 mg/dL Abnormal [facility] Comment on above: Result Comment: . AGE VERY LOW LOW NORMAL HIGH 0-19 Y < 35 < 40 40-45 ---- 20-24 Y ---- < 40 >45 ---- >24 Y ---- < 40 40-60 >60 . Performed By: #### L IPID ####[address] [id number] Cholesterol in LDL [Mass/Vol] 77 mg/dL Normal 0 - 99 [facility] Comment on above: Result Comment: . NEAR BORD AGE DESIRABLE OPTIMAL HIGH HIGH VERY HIGH 0-19 Y 0 - 109 --- 110-129 >/= 130 ---- 20-24 Y 0 - 119 --- 120-159 >/= 160 ---- >24 Y 0 - 99 100-129 130-159 160-189 >/=190 . Performed By: #### L IPID ####[address] [id number] Cholesterol in VLDL [Mass/Vol] 15 mg/dL Normal 0 - 40 [facility] Comment on above: Performed By: #### L IPID ####[id number] [place], [place] [id number] Cholesterol.total/Ch olesterol in HDL [Mass ratio] 3.5 {ratio} Normal [facility] Comment on above: Result Comment: REF VALUES DESIRABLE < 3.4 HIGH RISK > 5.0 Performed By: #### L IPID ####[address] [id number] Triglyceride [Mass/Vol] 74 mg/dL Normal 0 - 149 [facility] Comment on above: Result Comment: . AGE DESIRABLE BORDERLINE HIGH HIGH VERY HIGH 0 D-90 D 19 - 174 ---- ---- ---- 91 D- 9 Y 0 - 74 75 - 99 >/= 100 ---- 10-19 Y 0 - 89 90 - 129 >/= 130 ---- 20-24 Y 0 - 114 115 - 149 >/= 150 ---- >24 Y 0 - 149 150 - 199 200- 499 >/= 500 . Venipuncture immediately after or during the administration of Metamizole may lead to falsely low results. Testing should be performed immediately prior to Metamizole dosing. Performed By: #### L IPID ####[facility] [place], [place] [id number] Laboratory - Chemistry and C hemistry - challengeon 10-23-2022 Albumin BCP dye [Mass/Vol] 3.1 g/dL below low threshold 3.4 - 5.0 [facility] Work Phone: [phone] ALP [Catalytic activity/Vol] 48 U/L 33 - 136 [facility] Work Phone: [phone] ALT With P-5'-P [Catalytic activity/Vol] 52 U/L 10 - 52 [facility] Work Phone: [phone] Comment on above: Patients treated wit h Sulfasalazine may generate falsely decreased results for ALT. Anion gap [Moles/Vol] 11 mmol/L 10 - 20 [facility] Work Phone: [phone] AST With P-5'-P [Catalytic activity/Vol] 29 U/L 9 - 39 [facility] Work Phone: [phone] Bilirubin [Mass/Vol] 0.3 mg/dL 0.0 - 1.2 [facility] Work Phone: [phone] Calcium [Mass/Vol] 8.5 mg/dL below low threshold 8.6 - 10.3 [facility] Work Phone: [phone] Chloride [Moles/Vol] 109 mmol/L above high threshold 98 - 107 [facility] Work Phone: [phone] CO2 [Moles/Vol] 24 mmol/L 21 - 32 [facility] Work Phone: [phone] Creatinine [Mass/Vol] 0.85 mg/dL See Below [facility] Work Phone: [phone] Comment on above: Reference Range: 0.5 0 - 1.30 Glucose [Mass/Vol] 101 mg/dL above high threshold 74 - 99 [facility] Work Phone: [phone] Natriuretic peptide B (Bld) [Mass/Vol] 284 pg/mL above high threshold 0 - 99 [facility] Work Phone: [phone] Comment on above: . <100 pg/mL - Heart failure [id number] pg/mL - Intermediate probability of acute heart. failure exacerbation. Correlate with clinical. context and patient history. >=300 pg/mL - Heart Failure likely. Correlate with clinical. context and patient history.BNP testing is performed using different testing methodology at [facility] than at other [facility]. Direct result comparisons should only be made within the same method. Potassium [Moles/Vol] 4.5 mmol/L 3.5 - 5.3 [facility] Work Phone: [phone] Protein [Mass/Vol] 5.9 g/dL below low threshold 6.4 - 8.2 [facility] Work Phone: [phone] Sodium [Moles/Vol] 139 mmol/L 136 - 145 [facility] Work Phone: [phone] Urea nitrogen [Mass/Vol] 29 mg/dL above high threshold 6 - 23 [facility] Work Phone: [phone] Lipid Panelon 10-23-2022 Cholesterol [Mass/Vol] 129 mg/dL 0 - 199 [facility] Work Phone: [phone] Comment on above: . AGE DESIRABLE BORD ANIA HIGH HIGH 0-19 Y 0 - 169 170 - 199 >/= 200 20-24 Y 0 - 189 190 - 224 >/= 225 >24 Y 0 - 199 200 - 239 >/= 240 All ranges are based on fasting samples. Specific therapeutic targets will vary based on patient-specific cardiac risk.. Pediatric guidelines reference:Pediatrics 2011, 128(S5). Adult guidelines reference: NCEP ATPIII Guidelines, ETELVINA 2001, 258:2486-97. Venipuncture immediately after or during the administration of Metamizole may lead to falsely low results. Testing should be performed immediately prior to Metamizole dosing. Cholesterol in HDL [Mass/Vol] 36.8 mg/dL Abnormal [facility] [employer] Work Phone: Comment on above: . AGE VERY LOW LOW N ORMAL HIGH 0-19 Y < 35 < 40 40-45 ---- 20- 24 Y ---- < 40 >45 ---- >24 Y ---- < 40 40-60 >60. Cholesterol in LDL [Mass/Vol] 77 mg/dL 0 - 99 [facility] [employer] [facility] Work Phone: Comment on above: . NEAR BORD AGE JERED RABLE OPTIMAL HIGH HIGH VERY HIGH 0-19 Y 0 - 109 --- 110-129 >/= 130 ---- 20-24 Y 0 - 119 --- 120-159 >/= 160 ---- >24 Y 0 - 99 100-129 130-159 160-189 >/=190. Cholesterol.total/Ch olesterol in HDL [Mass ratio] 3.5 {ratio} [facility] [employer] Work Phone: Comment on above: REF VALUESDESIRABLE < 3.4HIGH RISK > 5.0 Triglyceride [Mass/Vol] 74 mg/dL 0 - 149 [facility] [employer] [facility] Work Phone: Comment on above: . AGE DESIRABLE BORD ANIA HIGH HIGH VERY HIGH 0 D-90 D 19 - 174 ---- ---- ----91 D- 9 Y 0 - 74 75 - 99 >/= 100 ---- 10-19 Y 0 - 89 90 - 129 >/= 130 ---- 20-24 Y 0 - 114 115 - 149 >/= 150 ---- >24 Y 0 - 149 150 - 199 200- 499 >/= 500. Venipuncture immediately after or during the administration of Metamizole may lead to falsely low results. Testing should be performed immediately prior to Metamizole dosing. Lipid Panel 15 mg/dL 0 - 40 [facility] Work Phone: MAGNESIUMon 10-23-2022 Magnesium [Mass/Vol] 2.12 mg/dL Normal 1.60 - 2.40 [facility] Comment on above: Performed By: #### M G ####[facility] [place], [place] [id number] Magnesium, Serumon Magnesium [Mass/Vol] 2.12 mg/dL See Below [facility] Work Phone: Comment on above: Reference Range: 1.6 0 - 2.40 No Panel Informationon 10-23 >90 >90 [facility] Work Phone: Comment on above: CALCULATIONS OF SILVIANO MATED GFR ARE PERFORMED USING THE 2020 CKD-EPI STUDY REFIT EQUATION WITHOUT THE RACE VARIABLE FOR THE IDMS-TRACEABLE CREATININE METHODS.https://jasn.asnjournals.org/content//ASN .3381009781 Order Reconciliationon 10-23 Order Reconciliation Page 1 Discharge Reconciliation Document Reconciliation Type: Discharge requested on behalf of Feng Winston (Physician) done by Feng Winston) Discharge - Partial Reconciliation: 23-Oct-2022 13:41 by: Jaylin Gerard (PHARMACIST MANAGER-WELFARE ELIGIBILITY INTERVIEWER) Discharge - Reconciliation: 25-Oct-2022 10:41 by: Feng Winston) Home Medications EnteredHOME MEDICATIONS AT DISCHARGE DateReconciliation Comment/ Additional Information alfuzosin 10 mg oral tablet, extended release 1 tab(s) orally once a day 22-Oct-2022 09:35 alfuzosin 10 mg oral tablet, extended release 1 tab(s) orally once a day 22-Oct-2022 09:35 alfuzosin 10 mg oral tablet, extended release is continued as alfuzosin 10 mg oral tablet, extended release atorvastatin 10 mg oral tablet 1 tab(s) orally once a day 22-Oct-2022 09:35 atorvastatin 10 mg oral tablet 1 tab(s) orally once a day 22-Oct-2022 09:35 atorvastatin 10 mg oral tablet is continued as atorvastatin 10 mg oral tablet bicalutamide 50 mg oral tablet 1 tab(s) orally every 24 hours 22-Oct-2022 09:36 bicalutamide 50 mg oral tablet 1 tab(s) orally every 24 hours 22-Oct-2022 09:36 bicalutamide 50 mg oral tablet is continued as bicalutamide 50 mg oral tablet folic acid orally once a day 22-Oct-2022 09:34 folic acid orally once a day 22-Oct-2022 09:34 folic acid is continued as folic acid losartan 50 mg oral tablet 1 tab(s) orally once a day 22-Oct-2022 09:35 losartan 50 mg oral tablet 1 tab(s) orally once a day 22-Oct-2022 09:35 losartan 50 mg oral tablet is continued as losartan 50 mg oral tablet methotrexate 2.5 mg oral tablet 3 tab(s) orally once a week 22-Oct-2022 09:35 methotrexate 2.5 mg oral tablet 3 tab(s) orally once a week 22-Oct-2022 09:35 methotrexate 2.5 mg oral tablet is continued as methotrexate 2.5 mg oral tablet oxybutynin 5 mg oral tablet 1 tab(s) orally once a day 22-Oct-2022 09:36 oxybutynin 5 mg oral tablet 1 tab(s) orally once a day 22-Oct-2022 09:36 oxybutynin 5 mg oral tablet is continued as oxybutynin 5 mg oral tablet Trelegy Ellipta 200 mcg-62.5 mcg-25 mcg/inh inhalation powder 1 puff(s) inhaled once a day 22-Oct-2022 09:34 Trelegy Ellipta 200 mcg-62.5 mcg-25 mcg/inh inhalation powder 1 puff(s) inhaled once a day 22-Oct-2022 09:34 Trelegy Ellipta 200 mcg-62.5 mcg-25 mcg/inh inhalation powder is continued as Trelegy Ellipta 200 mcg-62.5 mcg-25 mcg/inh inhalation powder [facility] DateReconciliation Comment/ Additional Information Acetaminophen Tablet (TYLENOL)DOSE = 650 mg Oral Every 6 Hours, PRN Pain - Mild (1-3) 22-Oct-2022 12:24 Acetaminophen is not required Aspirin Chewable Tablet, ChewableDOSE = 81 mg Oral Daily 22-Oct-2022 05:10 Aspirin Chewable is not required Atorvastatin Tablet (LIPITOR)DOSE = 40 mg Oral Daily 22-Oct-2022 05:10 Atorvastatin is not required diphenhydrAMINE Capsule (BENADRYL)DOSE = 25 mg Oral Every 24 Hours 23-Oct-2022 11:06 diphenhydrAMINE is not required Enoxaparin SubCutaneous (LOVENOX)DOSE = 40 mg SubCutaneous Every 24 Hours 22-Oct-2022 05:10 Enoxaparin SubCutaneous is not required Magnesium Oxide Tablet (Mag-Ox)DOSE = 400 mg Oral Daily 23-Oct-2022 13:37 magnesium oxide 400 mg oral tablet 1 tab(s) orally once a day 23-Oct-2022 13:41 Prescription is created for magnesium oxide 400 mg oral tablet Metoprolol Tartrate Tablet (LOPRESSOR)DOSE = 50 mg Oral 2 Times a Day 22-Oct-2022 05:10 metoprolol tartrate 50 mg oral tablet 1 tab(s) orally 2 times a day 23-Oct-2022 13:40 Prescription is created for metoprolol tartrate 50 mg oral tablet Nitroglycerin SubLingual Tablet (NITROSTAT)DOSE = 0.4 mg SubLingual Every 5 Minutes, PRN Angina 22-Oct-2022 05:10 Nitroglycerin SubLingual is not required predniSONE Tablet (DELTASONE, ORASONE)DOSE = 40 mg Oral Every 12 Hours 23-Oct-2022 11:06 predniSONE 20 mg oral tablet 2 tab(s) orally every 12 hours 25-Oct-2022 10:40 Prescription is created for predniSONE 20 mg oral tablet Sodium Chloride 0.9% Injectable Flush via Peripheral LineVolume = 10 mL IntraVenous Flush Every 8 Hours and as Needed 22-Oct-2022 05:10 Sodium Chloride 0.9% Injectable Flush is not required All Active Home Medications at time of Discharge Reconciliation: 25-Oct-2022 10:41 alfuzosin 10 mg oral tablet, extended release 1 tab(s) orally once a day atorvastatin 10 mg oral tablet 1 tab(s) orally once a day bicalutamide 50 mg oral tablet 1 tab(s) orally every 24 hours folic acid orally once a day losartan 50 mg oral tablet 1 tab(s) orally once a day magnesium oxide 400 mg oral tablet 1 tab(s) orally once a day methotrexate 2.5 mg oral tablet 3 tab(s) orally once a week metoprolol tartrate 50 mg oral tablet 1 tab(s) orally 2 times a day oxybutynin 5 mg oral tablet 1 tab(s) orally once a day predniSONE 20 mg oral tablet 2 tab(s) orally every 12 hours Trelegy Ellipta 200 mcg-62.5 mcg-25 mcg/inh inhalation powder 1 puff(s) inhaled once a day Normal [facility] T3 - Free Triiodothyronine, Serumon 10-23-2022 Free T3 [Mass/Vol] 2.3 pg/mL 2.3 - 4.2 [facility] Work Phone: TRIIODOTHYRONINE,FREEon TRIIODOTHYRONINE,AMIE E 2.3 pg/mL Normal 2.3 - 4.2 [facility] Comment on above: Performed By: #### T 3FRE ####[id number] [place] [place] [address] TROPONIN I, HIGH SENSITIVITY on 10-23-2022 TROPONIN I, HIGH SENSITIVITY 393 ng/L High 0 - 20 [facility] Comment on above: Result Comment: . Less than 99th percentile of normal range cutoff- Female and children under 18 years old <14 ng/L; Male <21 ng/L: Negative Repeat testing should be performed if clinically indicated. . Female and children under 18 years old 14-50 ng/L; Male 21-50 ng/L: Consistent with possible cardiac damage and possible increased clinical risk. Serial measurements may help to assess extent of myocardial damage. . >50 ng/L: Consistent with cardiac damage, increased clinical risk and myocardial infarction. Serial measurements may help assess extent of myocardial damage. . NOTE: Children less than 1 year old may have higher baseline troponin levels and results should be interpreted in conjunction with the overall clinical context. . NOTE: Troponin I testing is performed using a different testing methodology at [facility] than at other [facility]. Direct result comparisons should only be made within the same method. This is a critical result. Per Laboratory policy, critical results for this test only qualify to the call list once per 24 hours. Performed By: #### T [facility] ####[facility] [place], [place] [id number] Tropinin I.cardiac panel High sensitivity method 393 ng/L above high threshold 0 - [address] [facility] Work Phone: Comment on above: .Less than 99th perc entile of normal range cutoff-Female and children under 18 years old <14 ng/L; Male <21 ng/L: NegativeRepeat testing should be performed if clinically indicated. .Female and children under 18 years old 14-50 ng/L; Male 21-50 ng/L:Consistent with possible cardiac damage and possible increased clinical risk. Serial measurements may help to assess extent of myocardial damage. .>50 ng/L: Consistent with cardiac damage, increased clinical risk andmyocardial infarction. Serial measurements may help assess extent of myocardial damage. . NOTE: Children less than 1 year old may have higher baseline troponin levels and results should be interpreted in conjunction with the overall clinical context. .NOTE: Troponin I testing is performed using a different testing methodology at [facility] than at other [facility]. Direct result comparisons should only be made within the same method.This is a critical result. Per Laboratory policy, critical results for this test only qualify to the call list once per 24 hours. Admission Risk Screen - Adul ton 10-22-2022 Admission Risk Screen - Adult Allergies: Allergies: penicillin: Rash Patient Verification: New W ID Band Applied in my Departmentyes Patient Identity Verified Bypatient ID Band FULL Name, include Middle, spelling matches patient's ID used for verificationyes ID Band Matches Patient ID used for Verficationyes ID Band MRN Matches EMR MRNyes Visitor Restriction: Coronavirus Visitor Restriction: Reasonable restrictions to in-person visitors will be observed due to current coronavirus pandemic. Travel History: COVID-19 Screening Completedno exposure or symptoms Travel or Exposure Past 30 DaysNO travel to International locations in the past 30 days Ebola AlertFor Ebola-like Symptoms: Isolate Patient and Notify Provider/Motor Brakeman For Contact: Notify Provider/Motor Brakeman Advance Directive: Advance Directive/DNRno Advance Directive Information Givenpatient/family declined Kerr Fall Screen: History of falling (immediate or previous)no (0) Secondary Diagnosisno (0) Intravenous Therapy/ Heparin/Saline Lockyes (20) Gait/Transferringnormal/bedr est/wheelchair (0) Ambulatory Aidsnone/bedrest/nurse assist (0) Mental Statusoriented to own ability (0) Score: Low risk (<25). Moderate risk (25-44). High risk (>44).20 Kerr InterventionsLOW INTERVENTIONS: *patient oriented to surroundings and call system, * patient/family falls education completed and documented, *patients fall status communicated during bedside handoff, *whiteboard updated, *mode of toileting discussed with patient, *bed in low position with brakes locked, *call light in reach, * non-skid footwear Family Violence Screen: Are you or have you been threatened or abused physically, emotionally, or sexually by anyoneno Has anyone ever threatened to hurt your family or your petsno Does anyone try to keep you from having/contacting other friends or doing things outside your homeno Do you feel UNSAFE going back to the place where you are livingno Do you feel anyone has exploited or taken advantage of you financially or of your personal propertyno Clinical assessment: Are there any apparent signs of injuries/behaviors that could be related to abuse/neglectno Social Service Consult for abuse/neglect needed this visitno Functional Screen: Functional Screen: In the recent/past 2-4 weeks, patient or family have noticedno issues that require a speech/language consult at this time AM-PAC- Basic Mobility/Daily Activity: Patient baseline bedboundno Turning from your back to your side while in a flat bed without using bedrailsnone Moving from lying on your back to sitting on the side of a flat bed without using bedrailsnone Moving to and from bed to chair (including a wheelchair)none Standing up from a chair using your arms (e.g. wheelchair or bedside chair) none To walk in hospital roomnone Climbing 3-5 steps with railingnone Basic Mobility - Total Score24 Putting on and taking off regular lower body clothingnone Bathing (including washing, rinsing, drying)none Putting on and taking off regular upper body clothingnone Toileting, which includes using toilet, bedpan or urinalnone Taking care of personal grooming such as brushing teethnone Eating Mealsnone Daily Activity - Total Score24 Learning Assessment (Patient): Patient is Able to be Assessed for Learningyes Factors Influencing Readiness to Learnacuteness of illness; Patient is deaf Factors that Impact Ability to Learnnone Devices/Methods Used to Communicatenone Learning Preferencesverbal instruction Cultural Considerationsnone Developmental Considerationsnone Lutheran Considerationsnone Learning Assessment (Other Learner): Other learner availableno Depression Screen: During the past month, have you often been bothered by feeling down, depressed or hopelessno During the past month, have you often had little interest or pleasure in doing thingsno Have you had any thoughts of harming anyone elseno [place] Suicide: Risk Screen Not Applicable/Able to Answerable to be screened In the Past Month: Have you wished you were or could go to sleep and not wake upno In the Past Month: Have you had any actual thoughts of killing yourselfno Lifetime: Have you ever done, started to do, or prepared to do anything to end your lifeno [place] Suicide Risknegative Adult Nutrition Screen: Have you recently lost weight without tryingno Have you been eating poorly because of a decreased appetiteno Malnutrition Screening Tool Score0 Malnutrition Screening Tool RiskMST = 0 or 1 Not at risk. Eating well with little or no weight loss Nutrition Consult needed this visitno Can Patient Participate in Room Serviceyes Patient requires Paper Dishes/Plastic Utensilsno Pain Screen: Pain Scalenumerical 0-10 Pain Scale Educationteaching provided Current Pain Level3 = Mild Acceptable Pain Level0 = No (more content not included)... Normal [facility] BLOOD CULTURE, BACTERIALon 0 10-22-2022 BLOOD CULTURE, BACTERIAL PATIENT: TAN LASSITER LOCATION: [facility]#: [id number] : 46 AGE: SEX: M ORDERED BY: NALDO CASTILLO SOURCE: Blood COLLECTED: 10/22/22 06:37 ANTIBIOTICS AT ALBERTO.: RECEIVED : 10/22/22 13:58 SITE: PERIPHERAL R E S U L T S BLOOD CULTURE, BACTERIAL FINAL 10/26/22 15:42 No Growth at 1 days No Growth at 2 days No Growth at 3 days NO GROWTH at 4 days - FINAL REPORT Normal [facility] Comment on above: Performed By: #### B LDC ####[id number] [place] [address] BLOOD CULTURE, BACTERIAL PATIENT: TAN LASSITER LOCATION: [facility]#: [id number] : 46 AGE: SEX: M ORDERED BY: NALDO CASTILLO SOURCE: Blood COLLECTED: 10/22/22 06:37 ANTIBIOTICS AT ALBERTO.: RECEIVED : 10/22/22 13:58 SITE: PERIPHERAL R E S U L T S BLOOD CULTURE, BACTERIAL FINAL 10/26/22 15:42 No Growth at 1 days No Growth at 2 days No Growth at 3 days NO GROWTH at 4 days - FINAL REPORT Normal [facility] Comment on above: Performed By: #### B LDC ####[id number] [place] [address] BNPon 10-22-2022 Natriuretic peptide B (Bld) [Mass/Vol] 639 pg/mL High 0 - 99 [facility] Comment on above: Result Comment: . <1 00 pg/mL - Heart failure unlikely 100-299 pg/mL - Intermediate probability of acute heart . failure exacerbation. Correlate with clinical . context and patient history. >=300 pg/mL - Heart Failure likely. Correlate with clinical . context and patient history. BNP testing is performed using different testing methodology at [facility] than at other [facility]. Direct result comparisons should only be made within the same method. Performed By: #### B NP2 ####[facility] [place], [place] [id number] CBCon 10-22-2022 Erythrocyte distribution width (RBC) [Ratio] 12.4 % Normal 11.5 - 14.5 [facility] Comment on above: Performed By: #### C BC ####[facility] [place], [place] [id number] Hematocrit (Bld) [Volume fraction] 38.7 % Low 41.0 - 52.0 [facility] Comment on above: Performed By: #### C BC ####[facility] [place], [place] [id number] Hemoglobin (Bld) [Mass/Vol] 13.3 g/dL Low 13.5 - 17.5 [facility] Comment on above: Performed By: #### C BC ####[facility] [place], [place] [id number] MCHC (RBC) [Mass/Vol] 34.4 g/dL Normal 32.0 - 36.0 [facility] Comment on above: Performed By: #### C BC ####[facility] [place], [place] [id number] MCV (RBC) [Entitic vol] 91 fL Normal 80 - 100 [facility] Comment on above: Performed By: #### C BC ####[address] [place], [place] [id number] Platelets (Bld) [#/Vol] 263 10*3/uL Normal 150 - 450 [facility] Comment on above: Performed By: #### C BC ####[facility] [place], [place] [id number] RBC 4.23 x10E12/L Low 4.50 - 5.90 [facility] Comment on above: Performed By: #### C BC ####[address] [id number] WBC (Bld) [#/Vol] 15.3 10*3/uL High 4.4 - 11.3 [facility] Comment on above: Performed By: #### C BC ####[facility] [place] [phone] COMPREHENSIVE PANELon 2022 Albumin [Mass/Vol] 3.5 g/dL Normal 3.4 - 5.0 [facility] Comment on above: Performed By: #### C MP ####[facility] [place], [place] [phone] ALP [Catalytic activity/Vol] 58 U/L Normal 33 - 136 [facility] Comment on above: Performed By: #### C MP ####[address] [id number] ALT [Catalytic activity/Vol] 89 U/L High 10 - 52 [facility] Comment on above: Result Comment: Sarah ents treated with Sulfasalazine may generate falsely decreased results for ALT. Performed By: #### C MP ####[address] [id number] Anion gap [Moles/Vol] 10 mmol/L Normal 10 - 20 [facility] Comment on above: Performed By: #### C MP ####[address] [id number] AST [Catalytic activity/Vol] 86 U/L High 9 - 39 [facility] Comment on above: Performed By: #### C MP ####[address] [id number] Bilirubin [Mass/Vol] 0.4 mg/dL Normal 0.0 - 1.2 [facility] Comment on above: Performed By: #### C MP ####[address] [id number] Calcium [Mass/Vol] 8.6 mg/dL Normal 8.6 - 10.3 [facility] Comment on above: Performed By: #### C MP ####[address] [id number] Chloride [Moles/Vol] 108 mmol/L High 98 - 107 [facility] Comment on above: Performed By: #### C MP ####[address] [id number] Creatinine [Mass/Vol] 0.95 mg/dL Normal 0.50 - 1.30 [facility] Comment on above: Performed By: #### C MP ####[address] [id number] GFR/1.73 sq M.predicted among non-blacks MDRD (S/P/Bld) [Vol rate/Area] 84 mL/min/{1.73_m2} Normal >90 [facility] Comment on above: Result Comment: CALC ULATIONS OF ESTIMATED GFR ARE PERFORMED USING THE 2020 CKD-EPI STUDY REFIT EQUATION WITHOUT THE RACE VARIABLE FOR THE IDMS-TRACEABLE CREATININE METHODS. https://jasn.asnjournals.org/content//ASN.2158784 988 Performed By: #### C MP ####[address] [id number] Glucose [Mass/Vol] 144 mg/dL High 74 - 99 [facility] Comment on above: Performed By: #### C MP ####[address] [id number] HCO3 (Bld) [Moles/Vol] 24 mmol/L Normal 21 - 32 [facility] Comment on above: Performed By: #### C MP ####[address] [id number] Potassium [Moles/Vol] 4.2 mmol/L Normal 3.5 - 5.3 [facility] Comment on above: Performed By: #### C MP ####[address] [id number] Protein [Mass/Vol] 6.5 g/dL Normal 6.4 - 8.2 [facility] Comment on above: Performed By: #### C MP ####[address] [id number] Sodium [Moles/Vol] 138 mmol/L Normal 136 - 145 [facility] Comment on above: Performed By: #### C MP ####[address] [id number] Urea nitrogen [Mass/Vol] 22 mg/dL Normal 6 - 23 [facility] Comment on above: Performed By: #### C MP ####[address] [place] [id number] Clinical Event Noteon 2022 Clinical Event Note Clinical Event: Clinical Event Note: Details Patient seen and examined. His cardiac cath was negative. He is denying any significant chest pain or worsening shortness of breath. No signs of infection, will discontinue antibiotics. White cell count is most likely reactive. We will repeat tomorrow. His TFTs were deranged TSH was low, free T3 and T4 ordered. He might jervell henderson Arizmendi syndrome Electronic Signatures: Ricardo Myers) (Signed 22-Oct-2022 15:53) Authored: Clinical Event Note Last Updated: 22-Oct-2022 15:53 by Ricardo Myers) Normal [facility] Clinical Event Note-Attempte d exam - Pt off floor for procedon 10-22-2022 Clinical Event Note-Attempted exam - Pt off floor for proced Clinical Event: Clinical Event Note: TopicAttempted exam - Pt off floor for procedure Details Patient off floor for procedure Will attempt exam again tomorrow Electronic Signatures: Janine Haq (DPAnkush) (Signed 22-Oct-2022 12:43) Authored: Clinical Event Note Last Updated: 22-Oct-2022 12:43 by Janine Haq (MARCIE) Normal [facility] Consult-Cardiologyon 023 Consult-Cardiology Service: Service: Cardiology Consult: Consult requested by (Attending Name): Naldo Castillo Reason: NSTEMI History of Present Illness: HPI: TAN LASSITER is a 71 year old Male who is hearing impaired was transferred from [facility] to [facility] on 10/22/2022 after presenting to [facility] emergency department with chief complaint of chest pain. Patient has history of deafness/hearing impairment and history of remote cochlear implant, he reads lips for communication. No family is present at time of cardiology consult. Information for consult obtained from speaking to patient and from review of paperwork sent from [facility] ED. 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 Yesterday he was getting ready to go to [employer] for a [employer] study and had sudden onset of feeling very cold, chills, shaking and had a pushing/pressure sensation to his mid chest that radiated to his arm and neck. He denies associated diaphoresis, palpitations, dizziness or lightheadedness. He states that he did feel like he was not getting enough air and that his abdomen was full and caused him to feel nauseous. In the emergency department initial EKG showed questionable atrial fibrillation with rapid ventricular rate with heart rate 130 bpm, there is artifact making tracing difficult to interpret. EKG reviewed with Dr. Saldaña who feels was sinus tachycardia with paroxysmal supraventricular tachycardia. Subsequent EKG showed sinus rhythm with frequent PACs, heart rate 98 bpm. Initial high-sensitivity troponin was 14.6 (reference range 4.0-76.1) subsequent troponin 441, 990, 1342. NT proBNP was 372 which was normal. White count 4.6, hemoglobin 14.7, 43.2, platelet count 272, sodium 138, potassium 4.0, chloride 102, CO2 29.6, glucose 102, BUN 17, creatinine 0.89, estimated GFR greater than 60, negative influenza and COVID screening. Portable chest x-ray showed clear lungs. In [place] emergency room patient was given Tylenol, aspirin, IV Cardizem, subcutaneous Lovenox, IV steroids, morphine, Zofran, IV fluids, and nebulizer. He converted to sinus rhythm. He was transferred to [facility] for further evaluation. This morning at time of cardiology consult patient states that he feels better, does not have pain in his chest or shortness of breath currently. Patient describes that he has had similar symptoms in the past over the last couple years and has been hospitalized but no cardiac testing was performed to his knowledge, he has been treated for pneumonia and given oxygen in the past. He follows with a primary care provider and oncologist for his prostate cancer, denies having any current cardiology care. [facility] heart cardiology consult was placed for evaluation of non-STEMI. Past medical history patient denies history of coronary artery disease, arrhythmia including atrial fibrillation, history of stroke, diabetes, thyroid disease, peptic ulcer disease or GI bleed. He has past medical history of hypertension, high cholesterol, prostate cancer for which he is taking an oral medication daily and followed by an oncologist, COPD, wears home oxygen at times, former tobacco use listed as [id number] history patient states that he quit smoking at age 56. He denies alcohol or drug use. Past surgical history is cochlear implant and tonsillectomy as a child Social history former smoker, no alcohol or drug use. Lives alone and is independent with activities of daily living Family history parents both , no history of cardiovascular disease, both had lymphoma. Patient has 3 half-brothers with some sort of cardiac history patient was not able to provide details. Past Medical/Surgical History: Medical History: Former smoker: Hyperlipidemia: Benign essential hypertension: Hearing impaired: Prostate cancer: Gastroesophageal reflux disease: Chronic obstructive pulmonary disease: Surg History: History of tonsillectomy: History of cochlear implant: Review Family/Social History and ROS: Family History: Cancer: yes Mother and father , had history of lymphoma Social History: Smoking Status: former smoker Alcohol Use: denies(1) Drug Use: denies (1) Drug 2 Use: denies (1) Constitutional: POSITIVE: Chills; NEGATIVE: Fever, Anorexia, Weight Loss, Malaise Eyes: NEGATIVE: Blurry Vision, Drainage, Diploplia, Redness, Vision Loss/ Change ENMT: NEGATIVE: Nasal Discharge, Nasal Congestion, Ear Pain, Mouth Pain, Throat Pain Respiratory: POSITIVE: Productive Cough, Shortness of Breath; NEGATIVE: Hemoptysis, Wheezing Cardiac: POSITIVE: Chest Pain, Dyspnea on Exertion; NEGATIVE: (more content not included)... Normal [facility] Cult, Bloodon 10-22-2022 Bacteria identified Cx Nom (Bld) -[facility] Work Phone: Discharge Planning [id number] 10-22-2022 Discharge Planning Note2 Discharge Planning: [facility] 20[facility] Anticipated Discharge [id number] Discharge Planning 10/22/22 TCC NOTE: pt admitted from [facility] as NSTEMI and transferred to [facility]. Cardiology consulted. Rounded with nurse caring for patient , Pt underwent cardiac catheterization today. NO intervention , medical management recommended. I met with patient at bedside, introduced self and role to discuss dc planning needs and concerns. Pt resides at home alone, he is independent , uses no assistive devices. denies any DME needs. Pt is very [place] , states he reads lips only. Pt denies any needs at discharge. states family will transport him home at time of discharge. nursing am-pac . Assessment: Discharge Planning Assessment [id number] Discharge Planning Assessment Completed byKaylee Lewis RN TCC Primary Contact Name and Numberaunt Nataliia Mayorga [phone] Lives Withalone(1) Living Arrangementspt reports he lives alone in a 2 story home, 3 steps to enter with rails, bed and bath on 1st floor, has tub/shower.(2) Stated Reason for AdmissionPatient stated he woke up today in a cold sweat and chest was hurting, SOB started feeling tired, and was shaking (1) [place] ([place]) PCPDaemilie Ledesma [facility] Resource/Environmental Concernsnone(1) Anticipated Transition [facility]) Services Anticipated at Transitionnon(1) Readmission Within the Last 30 Daysno previous admission in last 30 days Insurance[facility]ited [facility] mycare Anticipated Changes Related to Illnessnone Equipment Needed After Dischargenone Anticipated Discharge Facility/Level of Care Needs.Home Medication Adherence/Afford/Obtainyes Electronic Signatures: Kaylee Lewis ([employer]) (Signed 22-Oct-2022 16:46) Authored: Discharge Planning, Assessment Last Updated: 22-Oct-2022 16:46 by Kaylee Lewis (AUTOMOTIVE GLASS MECHANIC) References: 1. Data Referenced From Patient Profile - Adult v2 22-Oct-2022 04:41 2. Data Referenced From OT Evaluation v2-occupational therapy 22-Oct-2022 13:06 Normal [facility] [facility] Echocardiogramon 10-22-2022 Echocardiography [place] [address] TRANSTHORACIC ECHOCARDIOGRAM REPORT Patient Name: TAN Montes De Oca Physician: [id number] Vladislav Saldaña DO Study Date: 10/22/2022 Referring NALDO HOLDER Physician: AMERICA/PID: [id number] PCP: Accession/Order#: [id number] [facility] Echo Location: Lab Date of : 1950 Fellow: Gender: M Nurse: Judah Morataya RN Admit Date: 10/22/2022 Vertical Roll Operator: Christine Riddle [facility] Admission Status: Inpatient - Additional Staff: Routine Height: 180.00 cm CC Report to: Arcenio Moreno Weight: 74.01 kg Study Type: Echocardiogram BSA: 1.93 m2 Blood Pressure: 101 /58 mmHg Diagnosis/ICD: R07.89-Other chest pain Indication: Chest Pain Procedure/CPT: Echo Complete w Full Doppler-[id number] Patient History: Pertinent History: Dyspnea, Chest Pain, Hyperlipidemia and NSTEMI. Study Detail: The following Echo studies were performed: 2D, M-Mode, Doppler and color flow. Definity used as a contrast agent for endocardial border definition. Total contrast used for this procedure was 2 mL via IV push. The patient was awake. PHYSICIAN INTERPRETATION: Left Ventricle: Left ventricular systolic function is normal, with an estimated ejection fraction of 60-65%. There are no regional wall motion abnormalities. The left ventricular cavity size is normal. Spectral Doppler shows an impaired relaxation pattern of left ventricular diastolic filling. LV Wall Scoring: All segments are normal. Left Atrium: The left atrium is normal in size. Right Ventricle: The right ventricle is normal in size. There is normal right ventricular global systolic function. Right Atrium: The right atrium is normal in size. Aortic Valve: The aortic valve appears structurally normal. The aortic valve appears tricuspid. There is no evidence of aortic valve stenosis. There is no evidence of aortic valve regurgitation. The peak instantaneous gradient of the aortic valve is 4.8 mmHg. The mean gradient of the aortic valve is 3.0 mmHg. Mitral Valve: The mitral valve is normal in structure. There is no evidence of mitral valve stenosis. There is normal mitral valve leaflet mobility. There is no evidence of mitral valve regurgitation. Tricuspid Valve: The tricuspid valve is structurally normal. There is normal tricuspid valve leaflet mobility. There is mild tricuspid regurgitation. Pulmonic Valve: The pulmonic valve is structurally normal. There is no indication of pulmonic valve regurgitation. Pericardium: There is no pericardial effusion noted. Aorta: The aortic root is normal. Pulmonary Artery: The main pulmonary artery is normal in size, and position, with normal bifurcation into the left and right pulmonary arteries. Systemic Veins: The inferior vena cava appears to be of normal size. CONCLUSIONS: 1. Left ventricular systolic function is normal with a 60-65% estimated ejection fraction. 2. Spectral Doppler shows an impaired relaxation pattern of left ventricular diastolic filling. 3. There is no evidence of mitral valve stenosis. 4. Mild tricuspid regurgitation is visualized. 5. Aortic valve stenosis is not present. 6. The main pulmonary artery is normal in size, and position, with normal bifurcation into the left and right pulmonary arteries. QUANTITATIVE DATA SUMMARY: 2D MEASUREMENTS: Normal Ranges: Ao Root d: 3.60 cm (2.0-3.7cm) LAs: 3.50 cm (2.7-4.0cm) IVSd: 0.97 cm (0.6-1.1cm) LVPWd: 1.11 cm (0.6-1.1cm) LVIDd: 4.02 cm (3.9-5.9cm) LVIDs: 2.60 cm LV Mass Index: 70.2 g/m2 LV % FS 35.3 % LA VOLUME: Normal Ranges: LA Vol A4C: 32.2 ml (22+/-6mL/m2) LA Vol A2C: 28.7 ml LA Vol BP: 30.7 ml LA Vol Index A4C: 16.7ml/m2 LA Vol Index A2C: 14.9 ml/m2 LA Vol Index BP: 15.9 ml/m2 LA Area A4C: 13.0 cm2 LA Area A2C: 12.4 cm2 LA Major [place] A4C: 4.5 cm LA Major [place] A2C: 4.6 cm LA Volume Index: 15.0 ml/m2 RA VOLUME BY A/L METHOD: Normal Ranges: RA Vol A4C: 42.9 ml (8.3-19.5ml) RA Vol Index A4C: 22.2 ml/m2 RA Area A4C: 15.4 cm2 RA Major [place] A4C: 4.7 cm M-MODE MEASUREMENTS: Normal Ranges: Ao Root: 3.60 cm (2.0-3.7cm) AoV Exc: 2.10 cm (1.5-2.5cm) AORTA MEASUREMENTS: Normal Ranges: AoV Exc: 2.10 cm (1.5-2.5cm) Asc Ao, d: 3.40 cm (2.1-3.4cm) LV SYSTOLIC FUNCTION BY 2D PLANIMETRY (MOD): Normal Ranges: EF-A4C View: 65.7 % (>=55%) EF-A2C View: 65.7 % EF-Biplane: 67.8 % LV DIASTOLIC FUNCTION: Normal Ranges: MV Peak E: 0.69 m/s (0.7-1.2 m/s) MV Peak A: 0.85 m/s (0.42-0.7 m/s) E/A Ratio: 0.81 (1.0-2.2) MV e' 0.08 m/s (>8.0) MV lateral e' 0.08 m/s MV medial e' 0.06 m/s E/e' Ratio: 8.94 (<8.0) MITRAL VALVE: Normal Ranges: MV DT: 241 msec (150-240msec) AORTIC VALVE: Normal Ranges: AoV Vmax: 1.10 m/s (<=1.7m/s) AoV Peak P.8 mmHg (<20mmHg) AoV Mean P.0 mmHg (1.7-11.5mmHg) LVOT Max Wali: 1.05 m/s (<=1.1m/s) AoV VTI: 23.40 cm (18-25cm) LVOT VTI: 21.90 cm LVOT Diameter: (more content not included)... Normal [facility] Electrocardiogram 12 Leadon 10-22-2022 Electrocardiogram 12 Lead Ventricular Rate 65 Atrial Rate 65 P-R Interval 164 QRS Duration 78 Q-T Interval 504 QTC Calculation(Bazett) 524 P [place] 72 R [place] 71 T [place] 72 QRS Count 11 Q Onset 222 P Onset 140 P Offset 193 T Offset 474 QTC Fredericia 517 Diagnosis Class Abnormal Diagnosis Normal sinus rhythm Prolonged QT Abnormal ECG No previous ECGs available Confirmed by Vladislav Perez ([id number]) on 10/26/2022 5:26:20 PM Normal [facility] HEMOGLOBIN A1Con 10-22-2022 Glucose [Mass/Vol] 100 mg/dL Normal [facility] Comment on above: Performed By: #### H BA1E ####[id number] [place] [address] HbA1c (Bld) [Mass fraction] 5.1 % Normal [facility] Comment on above: Result Comment: Diag nosis of Diabetes-Adults Non-Diabetic: < or = 5.6% Increased risk for developing diabetes: 5.7-6.4% Diagnostic of diabetes: > or = 6.5% . Monitoring of Diabetes Age (y) Therapeutic Goal (%) Adults: >18 <7.0 Pediatrics: 13-18 <7.5 7-12 <8.0 0- 6 7.5-8.5 [place] [employer]. Diabetes Care 33(S1), Oct 2009. Performed By: #### H BA1E ####[id number] [place] [address] Hemoglobin A1Con 10-22-2022 Glucose [Mass/Vol] 100 mg/dL [facility] Work Phone: HbA1c (Bld) [Mass fraction] 5.1 % [facility] Work Phone: Comment on above: Diagnosis of Diabete s-Adults Non-Diabetic: < or = 5.6% Increased risk for developing diabetes: 5.7-6.4% Diagnostic of diabetes: > or = 6.5%. Monitoring of Diabetes Age (y) Therapeutic Goal (%) Adults: >18 <7.0 Pediatrics: 13-18 <7.5 7-12 <8.0 0- 6 7.5-8.5 [place] [employer]. Diabetes Care 33(S1), Oct 2009. LACTATE/LACTIC ACIDon 2022 Lactate [Moles/Vol] 1.0 mmol/L Normal 0.4-1.9 [facility] Comment on above: Performed By: #### L ACT #### [facility] [address] [address] [address] Wyatt Leger LIPID PANEL (CORONARY RISK 2 )on 10-22-2022 Cholesterol [Mass/Vol] 134 mg/dL Normal 0 - 199 [facility] Comment on above: Result Comment: . AGE DESIRABLE BORDERLINE HIGH HIGH 0-19 Y 0 - 169 170 - 199 >/= 200 20-24 Y 0 - 189 190 - 224 >/= 225 >24 Y 0 - 199 200 - 239 >/= 240 All ranges are based on fasting samples. Specific therapeutic targets will vary based on patient-specific cardiac risk. . Pediatric guidelines reference:Pediatrics 2011, 128(S5). Adult guidelines reference: NCEP ATPIII Guidelines, ETELVINA 2001, 258:2486-97 . Venipuncture immediately after or during the administration of Metamizole may lead to falsely low results. Testing should be performed immediately prior to Metamizole dosing. Performed By: #### L IPID ####[id number] [place], [place] [id number] Cholesterol in HDL [Mass/Vol] 39.2 mg/dL Abnormal [facility] Comment on above: Result Comment: . AGE VERY LOW LOW NORMAL HIGH 0-19 Y < 35 < 40 40-45 ---- 20-24 Y ---- < 40 >45 ---- >24 Y ---- < 40 40-60 >60 . Performed By: #### L IPID ####[address] [place], [place] [id number] Cholesterol in LDL [Mass/Vol] 87 mg/dL Normal 0 - 99 [facility] Comment on above: Result Comment: . NEAR BORD AGE DESIRABLE OPTIMAL HIGH HIGH VERY HIGH 0-19 Y 0 - 109 --- 110-129 >/= 130 ---- 20-24 Y 0 - 119 --- 120-159 >/= 160 ---- >24 Y 0 - 99 100-129 130-159 160-189 >/=190 . Performed By: #### L IPID ####[address] [id number] Cholesterol in VLDL [Mass/Vol] 8 mg/dL Normal 0 - 40 [facility] Comment on above: Performed By: #### L IPID ####[address] [place], [place] [id number] Cholesterol.total/Ch olesterol in HDL [Mass ratio] 3.4 {ratio} Normal [facility] Comment on above: Result Comment: REF VALUES DESIRABLE < 3.4 HIGH RISK > 5.0 Performed By: #### L IPID ####[address] [id number] Triglyceride [Mass/Vol] 41 mg/dL Normal 0 - 149 [facility] Comment on above: Result Comment: . AGE DESIRABLE BORDERLINE HIGH HIGH VERY HIGH 0 D-90 D 19 - 174 ---- ---- ---- 91 D- 9 Y 0 - 74 75 - 99 >/= 100 ---- 10-19 Y 0 - 89 90 - 129 >/= 130 ---- 20-24 Y 0 - 114 115 - 149 >/= 150 ---- >24 Y 0 - 149 150 - 199 200- 499 >/= 500 . Venipuncture immediately after or during the administration of Metamizole may lead to falsely low results. Testing should be performed immediately prior to Metamizole dosing. Performed By: #### L IPID ####[facility] [place], [place] [id number] Laboratory - Chemistry and C hemistry - challengeon 10-22-2022 Albumin BCP dye [Mass/Vol] 3.5 g/dL 3.4 - 5.0 [facility] Work Phone: [phone] ALP [Catalytic activity/Vol] 58 U/L 33 - 136 [facility] Work Phone: [phone] ALT With P-5'-P [Catalytic activity/Vol] 89 U/L above high threshold 10 - 52 [facility] Work Phone: [phone] Comment on above: Patients treated wit h Sulfasalazine may generate falsely decreased results for ALT. Anion gap [Moles/Vol] 10 mmol/L 10 - 20 [facility] Work Phone: [phone] AST With P-5'-P [Catalytic activity/Vol] 86 U/L above high threshold 9 - 39 [facility] Work Phone: [phone] Bilirubin [Mass/Vol] 0.4 mg/dL 0.0 - 1.2 [facility] Work Phone: [phone] Calcium [Mass/Vol] 8.6 mg/dL 8.6 - 10.3 [facility] Work Phone: [phone] Chloride [Moles/Vol] 108 mmol/L above high threshold 98 - 107 [facility] Work Phone: [phone] CO2 [Moles/Vol] 24 mmol/L 21 - 32 [facility] Work Phone: [phone] Creatinine [Mass/Vol] 0.95 mg/dL See Below [facility] Work Phone: [phone] Comment on above: Reference Range: 0.5 0 - 1.30 Glucose [Mass/Vol] 144 mg/dL above high threshold 74 - 99 [facility] Work Phone: [phone] Natriuretic peptide B (Bld) [Mass/Vol] 639 pg/mL above high threshold 0 - 99 [facility] Work Phone: [phone] Comment on above: . <100 pg/mL - Heart failure [id number] pg/mL - Intermediate probability of acute heart. failure exacerbation. Correlate with clinical. context and patient history. >=300 pg/mL - Heart Failure likely. Correlate with clinical. context and patient history.BNP testing is performed using different testing methodology at [facility] than at other legacy [facility]. Direct result comparisons should only be made within the same method. Potassium [Moles/Vol] 4.2 mmol/L 3.5 - 5.3 [facility] Work Phone: [phone] Protein [Mass/Vol] 6.5 g/dL 6.4 - 8.2 [facility] Work Phone: [phone] Sodium [Moles/Vol] 138 mmol/L 136 - 145 [facility] Work Phone: [phone] Urea nitrogen [Mass/Vol] 22 mg/dL 6 - 23 [facility] Work Phone: [phone] Laboratory - Hematology and Cell countson 10-22-2022 Erythrocyte distribution width (RBC) [Ratio] 12.4 % See Below [facility] Work Phone: [phone] Comment on above: Reference Range: 11. 5 - 14.5 Hematocrit (Bld) [Volume fraction] 38.7 % below low threshold See Below [facility] Work Phone: Comment on above: Reference Range: 41. 0 - 52.0 Hemoglobin (Bld) [Mass/Vol] 13.3 g/dL below low threshold See Below [facility] Work Phone: Comment on above: Reference Range: 13. 5 - 17.5 MCHC (RBC) [Mass/Vol] 34.4 g/dL See Below [facility] Work Phone: Comment on above: Reference Range: 32. 0 - 36.0 MCV (RBC) [Entitic vol] 91 fL 80 - 100 [facility] Work Phone: [phone] Platelets (Bld) [#/Vol] 263 10*3/uL 150 - 450 [facility] Work Phone: RBC (Bld) [#/Vol] 4.23 {x10E12/L} below low threshold See Below [facility] Work Phone: Comment on above: Reference Range: 4.5 0 - 5.90 WBC (Bld) [#/Vol] 15.3 10*3/uL above high threshold 4.4 - 11.3 [facility] Work Phone: Left Heart Catheterizationon 10-22-2022 Left Heart Catheterization [facility] [employer] [address] [place] [address] Cardiovascular Catheterization Report Patient Name: TAN LASSITER Performing [id number] Arya Pineda Physician: Study Date: 10/22/2022 Verifying Physician: [id number] Pineda MD MRN/PID: [id number] Ethnoarchaeologist: Accession/Order#: [id number] Referring Physician: JAYLIN GERARD Date of : 1950 Referring Physician: Gender: M Referring Physician: Nena Pineda MD Study: Left Heart Catheterization Indications: TAN LASSITER is a 72 year old male who presents with dyslipidemia, hypertension, tobacco Use - former and chronic pulmonary disease. Acute coronary syndrome <=24 hrs, with a chest pain assessment of typical angina. Study performed as an urgent cath procedure. Medical History: Stress test performed: No. CTA performed: NoSudheer Walter accessed: No. LVEF Assessed: No. Procedure Description: After infiltration with 2% Lidocaine, the right femoral artery was cannulated with a modified Seldinger technique. Subsequently a 5 Thai sheath was placed in the right femoral artery. Selective coronary catheterization was performed using a 5 Fr catheter(s) exchanged over a guide wire to cannulate the coronary arteries. A JL 4 tip catheter was used for left coronary injections. A 3DRC tip catheter was used for right coronary injections. Multiple injections of contrast were made into the left and right coronary arteries with angiograms recorded in multiple projections. Retrograde left heart catheterizion was accomplished with a 5 Fr. pigtail catheter. A single plane left ventriculogram was recorded in the 30 degree ESPOSITO projection. The contrast dose was 20 ml injected at 10 ml/sec. The catheter was then withdrawn across the aortic valve under continuous pressure monitoring and removed. After completion of the procedure, femoral artery angiography was performed. This demonstrated a common femoral artery puncture appropriate for closure. A Vascade 5F vascular closure Device was placed per protocol the arterial sheath was pulled and a Hemostatic patch was applied to the site. Coronary Angiography: The coronary circulation is right dominant. Left Main Coronary Artery: There is <10% stenosis in the entire left main coronary artery. Left Anterior Descending Coronary Artery Distribution: There is 10stenosis in the proximal left anterior descending artery. Circumflex Coronary Artery Distribution: There is <10% stenosis in the the entire Circumflex artery. Right Coronary Artery Distribution: There is <10% stenosis in the the entire Right Coronary Artery. Left Ventriculography: The estimated left ventricular ejection fraction is normal at 60%. Hemo Personnel: + + + Name Duty + + + Arya Martin MD, MD 1 + + + Shahzad Radha RT PROC SCRUB 1 + + + AgAmber RN PROC RECORD 1 + + + Alem Alvaradoda RN PROC NURSE 1 + + + Rafita Gallegos RN PROC NURSE 2 + + + Sedation Time: + +-- + Sedation Start/End Times Time + +-- + Start 10/22/2022 11:33:43 + +-- + Drugs Versed 1 mg IV per physician for sedatio + +-- + Equipment Used: + +------ + Date/Time Description + +------ + 10/22/2022 11:26:35 AM {Sheath} - 5F [place] Sheath w/ Wire - Qty: 1 Part #: [id number] + +------ + 10/22/2022 11:26:35 AM {5 Fr Catheter} - 5F JL4 Infiniti - Qty: 1 Part #: 35 + +------ + 10/22/2022 11:26:35 AM {5 Fr Catheter} - 5F 3DRC - Qty: 1 Part #: 24 + +------ + 10/22/2022 11:26:35 AM {5 Fr Catheter} - 5F Pigtail Angled 145 Infiniti - Qty: 1 Part #: 47 + +------ + 10/22/2022 11:26:40 AM {Closure Device} - QuikClot Interventional pad - Qty: 1 Each Part #: [id number] + +------ + 10/22/2022 11:39:59 AM {Closure Device} - 5F Vascade Closure Device - Qty: 1 Each Part #: 393 + +------ + + + Contrast: + + Omnipaque: (more content not included)... Normal [facility] Lipid Panelon 10-22-2022 Cholesterol [Mass/Vol] 134 mg/dL 0 - 199 -[facility] Work Phone: Comment on above: . AGE DESIRABLE BORD ANIA HIGH HIGH 0-19 Y 0 - 169 170 - 199 >/= 200 20-24 Y 0 - 189 190 - 224 >/= 225 >24 Y 0 - 199 200 - 239 >/= 240 All ranges are based on fasting samples. Specific therapeutic targets will vary based on patient-specific cardiac risk.. Pediatric guidelines reference:Pediatrics 2011, 128(S5). Adult guidelines reference: NCEP ATPIII Guidelines, ETELVINA 2001, 258:2486-97. Venipuncture immediately after or during the administration of Metamizole may lead to falsely low results. Testing should be performed immediately prior to Metamizole dosing. Cholesterol in HDL [Mass/Vol] 39.2 mg/dL Abnormal [facility] [employer] Work Phone: Comment on above: . AGE VERY LOW LOW N ORMAL HIGH 0-19 Y < 35 < 40 40-45 ---- 20- 24 Y ---- < 40 >45 ---- >24 Y ---- < 40 40-60 >60. Cholesterol in LDL [Mass/Vol] 87 mg/dL 0 - 99 [facility] [place] Work Phone: Comment on above: . NEAR BORD AGE JERED RABLE OPTIMAL HIGH HIGH VERY HIGH 0-19 Y 0 - 109 --- 110-129 >/= 130 ---- 20-24 Y 0 - 119 --- 120-159 >/= 160 ---- >24 Y 0 - 99 100-129 130-159 160-189 >/=190. Cholesterol.total/Ch olesterol in HDL [Mass ratio] 3.4 {ratio} [facility] [place] Work Phone: Comment on above: REF VALUESDESIRABLE < 3.4HIGH RISK > 5.0 Triglyceride [Mass/Vol] 41 mg/dL 0 - 149 [facility] [place] Work Phone: Comment on above: . AGE DESIRABLE BORD ANIA HIGH HIGH VERY HIGH 0 D-90 D 19 - 174 ---- ---- ----91 D- 9 Y 0 - 74 75 - 99 >/= 100 ---- 10-19 Y 0 - 89 90 - 129 >/= 130 ---- 20-24 Y 0 - 114 115 - 149 >/= 150 ---- >24 Y 0 - 149 150 - 199 200- 499 >/= 500. Venipuncture immediately after or during the administration of Metamizole may lead to falsely low results. Testing should be performed immediately prior to Metamizole dosing. Lipid Panel 8 mg/dL 0 - 40 [facility] Work Phone: MAGNESIUMon 10-22-2022 Magnesium [Mass/Vol] 2.13 mg/dL Normal 1.60 - 2.40 [facility] Comment on above: Performed By: #### M G ####[facility] [place], [place] [id number] Magnesium, Serumon Magnesium [Mass/Vol] 2.13 mg/dL See Below [facility] Work Phone: Comment on above: Reference Range: 1.6 0 - 2.40 No Panel Informationon 10-22 [facility] Work Phone: [phone] {mL/min/1.73m2} >90 [facility] Work Phone: [phone] Comment on above: CALCULATIONS OF SILVIANO MATED GFR ARE PERFORMED USING THE 2020 CKD-EPI STUDY REFIT EQUATION WITHOUT THE RACE VARIABLE FOR THE IDMS-TRACEABLE CREATININE METHODS.https://jasn.asnjournals.org/content/early/ASN .2495054879 https://MUSEXPRDWE B01:8080 /musescripts/museweb.dll?Ret rieveTestByDateTime?PatientI K=[id number]&Date=02-15-2023& Time=05%3a27%3a58%3a00&TestT ype=ECG&Site=11&OutputType=P DF&Ext=PDF [facility] [address] DO Work Phone: [phone] Normal sinus [facility] [address] DO Work Phone: [phone] Abnormal [facility] [address] DO Work Phone: [phone] [facility] [facility] [address] DO Work Phone: [phone] [facility] [address] DO Work Phone: [phone] [facility] [address] DO Work Phone: [phone] [facility] [address] DO Work Phone: [phone] [facility] [address] DO Work Phone: [phone] [facility] [address] DO Work Phone: [phone] [facility] [address] DO Work Phone: [phone] [facility] [address] DO Work Phone: [phone] [facility] [address] DO Work Phone: [phone] [facility] [address] DO Work Phone: [phone] [facility] [address] DO Work Phone: [phone] [facility] [address] DO Work Phone: [phone] [facility] [address] DO Work Phone: OT Evaluation v2-occupationa l therapyon 10-22-2022 OT Evaluation v2-occupational therapy Rehab: Info: Mode of Treatmentoccupational therapy Time IN09:51 Time OUT10:01 Total Treatment [id number] Patient in ... at end of sessionalarm on; bed Patient Effortgood Symptoms Noted During/After Treatmentnone Patient Profile Reviewedyes Onset of Illness/Injury or Date of [id number] Reason for Referraldecline in self care performance Referring PhysicianOT/PT 10/22/22: Rashmi Patient/Family/Caregiver Comments/ObservationsNursing reports that pt is deaf but does well lip reading; no issues with communication during OT eval; pt reports being very tired from not sleeping well last night; reports chest pain has decreased; currently 0/10. General Observations of PatientPt presents in bed upon arrival; agreeable to PT/OT; cleared to participate by nursing and cardiac WELFARE ELIGIBILITY INTERVIEWER; tele, O2. Pertinent History of Current Functional Problempt is a 71 yo male transferred to [facility] for cardiac evaluation . pt with c/o chest pain and shortness of breath. dx : Nstemi and new afib. test/lab : trop 924 , hgb 13.3 , covid - , pt pending cardiac cath. pmh: Deaf has cochlear implants. resp failure, prostate CA, HLD, home 02 portable concentrator 3 liters. Hearing Precautions/Limitationscochl ear implant Precautions/Limitationsfall precautions; oxygen therapy device and L/min Ambulation Skills - Previous Level of Functionindependent denies fall history; no AD Transfer Skills - Previous Level of Functionindependent ADL Skills - Previous Level of Functionindependent Work/Leisure Activity - Previous Level of Functionindependent; has dog BATTERIES & BANDS and reports lifting 50# bags of food Living Arrangementspt reports he lives alone in a 2 story home, 3 steps to enter with rails, bed and bath on 1st floor, has tub/shower. O2 Deliverynasal cannula; 2.5L Vision/Cognition: Affect/Mental Status (Cognitive)WNL Orientation Status (Cognition)oriented x 4 Able to Follow Commands (Receptive)WFL; follows multi-step commands ROM: Upper Extremity: Range of Motionleft upper extremity ROM WFL; right upper extremity ROM WFL MMT: Upper Extremity: Manual Muscle Testing (MMT)left upper extremity strength WFL; right upper extremity strength WFL; 5/5 BUE Mobility/Tone: Bed Mobility Assessment/Interventionssupi ne to sit; sit to supine Rexsqc-mb-Tsl [place] (Bed Mobility)modified independence Ghn-vx-Brcqga [place] (Bed Mobility)modified independence Transfer Assessment/Interventionssit to stand transfer; stand to sit transfer; toilet transfer Comment, TransfersMod Independent without AD ADL: BADL Assessment/Interventionbathi ng; upper body dressing; lower body dressing; clothing fastener management; grooming; toileting [place] Level (Bathing)modified independence [place] Level (Upper Body Dressing)independent [place] Level (Lower Body Dressing)modified independence [place] Level (Clothes Fastener Management)modified independence [place] Level (Grooming)modified independence [place] Level (Toileting)modified independence Impairments, BADL Safety/Performanceincreased time with generalized weakness; reports poor night sleep with transfer to hospital Motor: Sitting, Static (Balance)normal balance Sitting, Dynamic (Balance)normal balance Tyc-qk-Ahbuk (Balance)normal balance Standing, Static (Balance)normal balance Standing, Dynamic (Balance)normal balance Sensory: Pre-Treatment Pain Rating0/10 - no pain Post-Treatment Pain Rating0/10 - no pain Health: Observed Emotional Statepleasant; cooperative Plan of Care Reviewed Withpatient Impression: Criteria for Skilled Therapeutic Interventions Met (OT Eval)no problems identified which require skilled intervention Therapy Frequency (OT Eval)evaluation only Outcomes Tools: Putting on and taking off regular lower body clothingnone Bathing (including washing, rinsing, drying)none Toileting, which includes using toilet, bedpan or urinalnone Putting on and taking off regular upper body clothingnone Taking care of personal grooming such as brushing teethnone Eating Mealsnone AM-PAC (OT) Total Score24 Education: Learnerpatient Barriers to Learningno barrier Methodverbal Outcome Evaluation2=meets goals/outcomes Education - Topicenergy conservation/work simplification DC Recommendations: Discharge Recommendationno further skilled OT indicated at this time Electronic Signatures: Vicky Tony (OT) (Signed 22-Oct-2022 13:18) Authored: Info, Vision/Cognition, ROM, MMT, Mobility/Tone, ADL, Motor, Sensory, Health, Impression, Outcomes Tools, Education, DC Recommendations Last Updated: 22-Oct-2022 13:18 by Vicky Tony (OT) Normal [facility] Order Reconciliationon 10-22 Order Reconciliation Page 1 Admission Reconciliation Document Reconciliation Type: Admission requested on behalf of Nadlo Castillo (Physician) done by Naldo Castillo) Admission - Reconciliation: 22-Oct-2022 06:01 by: Naldo Castillo) No Current Medications. Additional Current Orders Aspirin Chewable Tablet, ChewableDOSE = 81 mg Oral Daily Atorvastatin Tablet (LIPITOR)DOSE = 40 mg Oral Daily cefTRIAXone 1 gram/ Dextrose 5% IVPB Premixed Soln 50 mL (ROCEPHIN)Every 24 HoursRecommended Infusion Time: 30 minute(s) Enoxaparin SubCutaneous (LOVENOX)DOSE = 40 mg SubCutaneous Every 24 Hours Metoprolol Tartrate Tablet (LOPRESSOR)DOSE = 50 mg Oral 2 Times a Day Nitroglycerin SubLingual Tablet (NITROSTAT)DOSE = 0.4 mg SubLingual Every 5 Minutes, PRN Angina Perflutren Lipid Microsphere (Activated) 1.3 mL / NaCL 0.9% T.V. 10 mL Injectable DOSE = 0.5 mL IntraVenous Push OnceCa.574071 mL/Kg/DOSE x 74.8 Kg = 0.5 mL/Dose (Daily Total is 0.5 mL)Clinician Notes: 1. Dilute 1.3 mL of activated DEFINITY with 8.7 mL of normal saline in a 10 mL syringe.2. Inject 0.5 mL of diluted DEFINITY when notified the images/film are unclear to enhance view of Left Ventricular borders.3. Repeat 0.5 mL of DEFINITY until clear images are obtained, not to exceed 10 mLs.4. Once images are obtained or limit of medication is reached, flush line with 10 mL of Normal Saline. Sodium Chloride 0.9% Injectable Flush via Peripheral LineVolume = 10 mL IntraVenous Flush Every 8 Hours and as Needed Normal [facility] PHOSPHORUSon 10-22-2022 Phosphate [Mass/Vol] 3.6 mg/dL Normal 2.5 - 4.9 [facility] Comment on above: Result Comment: The performance characteristics of phosphorus testing in heparinized plasma have been validated by the individual laboratory site where testing is performed. Testing on heparinized plasma is not approved by the FDA; however, such approval is not necessary. Performed By: #### P HOS ####[facility] [place], [place] [phone] PT Evaluation v2-physical th erapyon 10-22-2022 PT Evaluation v2-physical therapy Rehab: Info: Mode of Treatmentphysical therapy Time IN09:51 Time OUT10:01 Total Treatment Minutes0 Patient in ... at end of sessionpt in bed on alarm with head of bed elevated Patient Effortgood Symptoms Noted During/After Treatmentnone Patient Profile Reviewedyes Onset of Illness/Injury or Date of [id number] Reason for Referralimpaired mobility Referring PhysicianOT/PT 10/22 Rashmi Patient/Family/Caregiver Comments/Observationspt reports being very tired from not sleeping much arrived here early this morning. reports chest pain has decreased . currently 0/10 General Observations of Patientnursing cleared for therapy to see pt for eval. pt in bed on alarm has tele O2. pt agreeable to PT /OT evals. Pertinent History of Current Functional Problempt is a 71 yo male transferred to [facility] for cardiac evaluation . pt with c/o chest pain and shortness of breath. dx : Nstemi and new afib. test/lab : trop 924 , hgb 13.3 , covid - , pt pending cardiac cath. pmh: Deaf has cochlear implants. resp failure, prostate CA, HLD, home 02 portable concentrator 3 liters. Hearing Precautions/Limitationscochl ear implant Precautions/Limitationsfall precautions; oxygen therapy device and L/min Ambulation Skills - Previous Level of Functionpt reports he lives alone in a 2 story home3 steps to enter with rails, bed and bath on 1st floor, has tub/shower, independent with mobility adls and iadls. no AD , no recent falls . pt still drives. Vision/Cognition: Visual Impairment/LimitationsWFL Affect/Mental Status (Cognitive)WNL Orientation Status (Cognition)oriented x 4 ROM: Upper Extremity: Range of MotionB UE WFL Lower Extremity: Range of MotionB LE WFL MMT: Upper Extremity: Manual Muscle Testing (MMT)B UE 5/5 Lower Extremity: Manual Muscle Testing (MMT)B LE 5/5 Mobility/Tone: Bed Mobility Assessment/Interventionssupi ne to sit / sit to supine and scooting independent Transfer Assessment/Interventionssit to stand/ stand to sit no AD independent Gait/Stairs Locomotiongait no AD 30 ft independent Motor: Sitting, Static (Balance)normal balance Sitting, Dynamic (Balance)normal balance Fqg-xq-Jlgbm (Balance)normal balance Standing, Static (Balance)normal balance Standing, Dynamic (Balance)normal balance Sensory: Pre-Treatment Pain Rating0/10 - no pain Post-Treatment Pain Rating0/10 - no pain Impression: Criteria for Skilled Therapeutic Interventions Met (PT Eval)no; no problems identified which require skilled intervention Assessment (PT Eval)PT eval only pt is currently at his baseline mobility independent gait and transfers , good LE strength . no PT needs at this time. Therapy Frequency (PT Eval)evaluation only Outcomes Tools: Turning from your back to your side while in a flat bed without using bedrails none Moving from lying on your back to sitting on the side of a flat bed without using bedrailsnone Moving to and from bed to chair (including a wheelchair)none Standing up from a chair using your arms (e.g. wheelchair or bedside chair) none To walk in hospital roomnone Climbing 3-5 steps with railingnone AM-PAC (PT) Total Score24 DC Recommendations: Discharge RecommendationNo skilled PT needs at this time. Electronic Signatures: Diallo Martines (PT) (Signed 22-Oct-2022 12:17) Authored: Info, Vision/Cognition, ROM, MMT, Mobility/Tone, Motor, Sensory, Impression, Outcomes Tools, DC Recommendations Last Updated: 22-Oct-2022 12:17 by Diallo Martines (PT) [facility] Patient Profile - Adult v2on 10-22-2022 Patient Profile - Adult v2 Profile: Initial Info: How to be AddressedJohn Spoken Language PreferredEnglish Source of Informationpatient Stated Reason for AdmissionPatient stated he woke up today in a cold sweat and chest was hurting, SOB started feeling tired, and was shaking Wants Family/Rep Notified of Admissionno Notify PCPnotify PCP Informed of Patient Visiting Rightsyes [facility]rived [facility] [facility] Medications Brought to Hospitalno General Health: Weight in kg74.8 kilogram(s) Weight in vrg631.9 pound(s) Weight Methodactual (measured) Scale Typebed Height in cm180.1 centimeter(s) Height in feet5 feet Height in qbtebj10.94 inch(es) Height Methodstated BMI (kg/m2)23.06 square meter RSP Based Care: Recent Change in Mood/Behaviordenies Major Change/Loss/Stressor/Fearsde nies How would you like to participate in your carewould like to know what the shortness of breath is caused by and what is going on with me What is the number one concern for you during this hospitalizationchest pain What is the most important thing we can do to support you during this hospitalizationfind out what is causing this Is there anything we need to know to best care for youI am deaf and I read lips Substance: Smoking Statusnever smoker Alcohol Usedenies Drug Usedenies Drug 2 Usedenies Health Mgmt: Symptoms/Conditions Managed at Homenone Barriers to Managing Healthunderstanding health advice Relationship/Environ: Resource/Environmental Concernsnone Primary Source of Support/Comfortchild(bertha) Lives Withalone Living Arrangementshouse Services Anticipated at Transitionnone Anticipated Transition Tohome Significant IndicatorsComplete Information Review: Allergies, Home Meds and Significant Events have been Reviewed and Verified with Patient/Familyyes ALLERGY, INTOLERANCE, ADVERSE EVENT: Allergies: penicillin: Drug, Rash, Active Electronic Signatures: Lisa Sue (JENNA) (Signed 22-Oct-2022 04:50) Authored: Initial Info, General Health, RSP Based Care, Substance, Health Mgmt, Relationship/Environ, Additional Information Last Updated: 22-Oct-2022 04:50 by Lisa Sue (JENNA) Normal [facility] Phosphorus, Serumon 10-22-19 23 Phosphate [Mass/Vol] 3.6 mg/dL 2.5 - 4.9 [facility] Work Phone: Comment on above: The performance manjeet acteristics of phosphorus testing in heparinized plasma have been validated by the individual laboratory site where testing is performed. Testing on heparinized plasma is not approved by the FDA; however, such approval is not necessary. Radiologyon 10-22-2022 XR Chest Single view Normal [facility] Work Phone: T4 - Free Thyroxine, Serumon 10-22-2022 Free T4 [Mass/Vol] 0.89 ng/dL See Below [facility] Work Phone: Comment on above: Reference Range: 0.6 1 - 1.12 Thyroxine Free testing is performed using different testing methodology at [facility] than at other [facility]. Direct result comparisons should only be made within the same method.. Biotin can cause falsely elevated free T4 results. Patients taking a Biotin dose of up to 10 mg/day should refrain from taking Biotin for 24 hours before sample collection. Patient taking a Biotin dose of >10 mg/day should consult with their physician or the laboratory before the blood draw. THYROXINE,FREEon 10-22-2022 THYROXINE,FREE 0.89 ng/dL Normal 0.61 - 1.12 [facility] Comment on above: Result Comment: Thyr oxine Free testing is performed using different testing methodology at [facility] than at other [facility]. Direct result comparisons should only be made within the same method. . Biotin can cause falsely elevated free T4 results. Patients taking a Biotin dose of up to 10 mg/day should refrain from taking Biotin for 24 hours before sample collection. Patient taking a Biotin dose of >10 mg/day should consult with their physician or the laboratory before the blood draw. Performed By: #### T 4F ####[facility] [place], [place] [phone] TROPONIN I, HIGH SENSITIVITY on 10-22-2022 TROPONIN I, HIGH SENSITIVITY 605 ng/L High 0 - 20 [facility] Comment on above: Result Comment: . Less than 99th percentile of normal range cutoff- Female and children under 18 years old <14 ng/L; Male <21 ng/L: Negative Repeat testing should be performed if clinically indicated. . Female and children under 18 years old 14-50 ng/L; Male 21-50 ng/L: Consistent with possible cardiac damage and possible increased clinical risk. Serial measurements may help to assess extent of myocardial damage. . >50 ng/L: Consistent with cardiac damage, increased clinical risk and myocardial infarction. Serial measurements may help assess extent of myocardial damage. . NOTE: Children less than 1 year old may have higher baseline troponin levels and results should be interpreted in conjunction with the overall clinical context. . NOTE: Troponin I testing is performed using a different testing methodology at [facility] than at other [facility]. Direct result comparisons should only be made within the same method. This is a critical result. Per Laboratory policy, critical results for this test only qualify to the call list once per 24 hours. Performed By: #### T [facility] ####[facility] [place], [place] [phone] Tropinin I.cardiac panel High sensitivity method 605 ng/L above high threshold 0 - 20 -[facility] Work Phone: Comment on above: .Less than 99th perc entile of normal range cutoff-Female and children under 18 years old <14 ng/L; Male <21 ng/L: NegativeRepeat testing should be performed if clinically indicated. .Female and children under 18 years old 14-50 ng/L; Male 21-50 ng/L:Consistent with possible cardiac damage and possible increased clinical risk. Serial measurements may help to assess extent of myocardial damage. .>50 ng/L: Consistent with cardiac damage, increased clinical risk andmyocardial infarction. Serial measurements may help assess extent of myocardial damage. . NOTE: Children less than 1 year old may have higher baseline troponin levels and results should be interpreted in conjunction with the overall clinical context. .NOTE: Troponin I testing is performed using a different testing methodology at [facility] than at other [facility]. Direct result comparisons should only be made within the same method.This is a critical result. Per Laboratory policy, critical results for this test only qualify to the call list once per 24 hours. TROPONIN I, HIGH SENSITIVITY 924 ng/L Critically high 0 - 20 [facility] Comment on above: Order Comment: Melody SANON to Ade Mcconnell, 10/22/2022 07:10 Result Comment: . Less than 99th percentile of normal range cutoff- Female and children under 18 years old <14 ng/L; Male <21 ng/L: Negative Repeat testing should be performed if clinically indicated. . Female and children under 18 years old 14-50 ng/L; Male 21-50 ng/L: Consistent with possible cardiac damage and possible increased clinical risk. Serial measurements may help to assess extent of myocardial damage. . >50 ng/L: Consistent with cardiac damage, increased clinical risk and myocardial infarction. Serial measurements may help assess extent of myocardial damage. . NOTE: Children less than 1 year old may have higher baseline troponin levels and results should be interpreted in conjunction with the overall clinical context. . NOTE: Troponin I testing is performed using a different testing methodology at [facility] than at other [facility]. Direct result comparisons should only be made within the same method. Confirmed by repeat analysis Called- TALITA to Ade Mcconnell, 10/22/2022 07:10 Performed By: #### T [facility] ####[facility] [place], [place] [phone] Tropinin I.cardiac panel High sensitivity method 924 ng/L Critically high 0 - 20 [facility] Work Phone: Comment on above: .Less than 99th perc entile of normal range cutoff-Female and children under 18 years old <14 ng/L; Male <21 ng/L: NegativeRepeat testing should be performed if clinically indicated. .Female and children under 18 years old 14-50 ng/L; Male 21-50 ng/L:Consistent with possible cardiac damage and possible increased clinical risk. Serial measurements may help to assess extent of myocardial damage. .>50 ng/L: Consistent with cardiac damage, increased clinical risk andmyocardial infarction. Serial measurements may help assess extent of myocardial damage. . NOTE: Children less than 1 year old may have higher baseline troponin levels and results should be interpreted in conjunction with the overall clinical context. .NOTE: Troponin I testing is performed using a different testing methodology at [facility] than at other [facility]. Direct result comparisons should only be made within the same method.Confirmed by repeat analysis Called- RB to Ade Mcconnell, 10/22/2022 07:10 TROPONIN, HIGH SENSITIVITYon 10-22-2022 HSTROP 1342.0 pg/mL Critically high 4.0-76.1 [facility] Comment on above: Result Comment: CUT- OFF POINTS HAVE BEEN ESTABLISHED BASED ON THE FOURTH UNIVERSAL DEFINITIONS OF MYOCARDIAL INFARCTION. THE UPPER REFERENCE LIMIT (URL) OF TROPONIN, DEFINED THE 99TH PERCENTILE OF cTnI DISTRIBUTION IN A REFERENCE POPULATION, HAS BEEN CONFIRMED THE DECISION THRESHOLD FOR LA DIAGNOSIS. Performed By: #### H STROPN #### [facility] [address] [address] [address] Wyatt Leger HSTROP 990.4 pg/mL Critically high 4.0-76.1 [facility] Comment on above: Result Comment: CUT- OFF POINTS HAVE BEEN ESTABLISHED BASED ON THE FOURTH UNIVERSAL DEFINITIONS OF MYOCARDIAL INFARCTION. THE UPPER REFERENCE LIMIT (URL) OF TROPONIN, DEFINED THE 99TH PERCENTILE OF cTnI DISTRIBUTION IN A REFERENCE POPULATION, HAS BEEN CONFIRMED THE DECISION THRESHOLD FOR LA DIAGNOSIS. Performed By: #### H STROPN #### [facility] [address] [address] [address] Wyatt Leger TSHon 10-22-2022 TSH Qn 0.36 m[IU]/L Low 0.44 - 3.98 [facility] Comment on above: Result Comment: TSH testing is performed using different testing methodology at [facility] than at other [facility]. Direct result comparisons should only be made within the same method. Performed By: #### T SH2 ####[address] [id number] TSH - Thyroid Stimulating Ho rmdalia, Serumon 10-22-2022 TSH Qn 0.36 m[IU]/L below low threshold See Below [facility] Work Phone: Comment on above: Reference Range: 0.4 4 - 3.98 TSH testing is performed using different testing methodology at [facility] than at other [facility]. Direct result comparisons should only be made within the same method. URINALYSISon 10-22-2022 Appearance (U) CLEAR Normal CLEAR [facility] Comment on above: Performed By: #### U A ####[address] [phone] Bilirubin Ql (U) Negative Normal NEGATIVE [facility] Comment on above: Performed By: #### U A ####[address] [phone] Color (U) YELLOW Normal STRAW,YELL OW [facility] Comment on above: Performed By: #### U A ####[address] [phone] Glucose Ql (U) Negative Normal NEGATIVE [facility] Comment on above: Performed By: #### U A ####[address] [phone] Hemoglobin Ql (U) Negative Normal NEGATIVE [facility] Comment on above: Performed By: #### U A ####[address] [phone] Ketones Ql (U) Negative Normal NEGATIVE [facility] Comment on above: Performed By: #### U A ####[address] [phone] Leukocyte esterase Test strip Ql (U) Negative Normal NEGATIVE [facility] Comment on above: Performed By: #### U A ####[facility] [place], [place] [phone] Nitrite Ql (U) Negative Normal NEGATIVE [facility] Comment on above: Performed By: #### U A ####[facility] [place], [place] [phone] pH (U) 6.0 [pH] Normal 5.0 - 8.0 [facility] Comment on above: Performed By: #### U A ####[facility] [place], [place] [phone] Protein Ql (U) Negative Normal NEGATIVE [facility] Comment on above: Performed By: #### U A ####[facility] [place], [place] [phone] Specific gravity (U) [Rel density] 1.015 Normal 1.005 - 1.035 [facility] Comment on above: Performed By: #### U A ####[facility], [place] [phone] Urobilinogen (U) [Mass/Vol] mg/dL Normal 0.0 - 1.9 [facility] Comment on above: Performed By: #### U A ####[facility] [place] [phone] Urinalysison 10-22-2022 Color (U) YELLOW See Below [facility] Work Phone: [phone] Comment on above: Reference Range: STR AW,YELLOW Glucose Ql (U) Negative NEGATIVE [facility] Work Phone: [phone] Ketones Ql (U) Negative NEGATIVE [facility] Work Phone: [phone] Leukocyte esterase Test strip Ql (U) Negative NEGATIVE [facility] Work Phone: [phone] pH (U) 6.0 [pH] 5.0 - 8.0 [facility] Work Phone: [phone] Protein (U) [Mass/Vol] Negative NEGATIVE [facility] Work Phone: [phone] RBC (U) [#/Vol] Negative NEGATIVE [facility] Work Phone: [phone] Specific gravity (U) [Rel density] 1.015 1 See Below [facility] Work Phone: [phone] Comment on above: Reference Range: 1.0 05 - 1.035 Urinalysis Negative NEGATIVE [facility] Work Phone: [phone] Urinalysis <2.0 0.0 - 1.9 [facility] Work Phone: [phone] Urinalysis CLEAR CLEAR [facility] Work Phone: [phone] BNPon 10-21-2022 Natriuretic peptide B (Bld) [Mass/Vol] 372.0 pg/mL Normal <=900.0 [facility] Comment on above: Performed By: #### H STROPN, BNP, CMP #### [facility] [address] [place] [address] Dr. Wyatt Leger CBC W MANUAL DIFFon 10-21-19 23 ATYPICAL LYMPH # Normal [facility] Comment on above: Performed By: #### C BESSIE #### [facility] [address] [place] [address] Dr. Wyatt Leger ATYPICAL LYMPH % Normal [facility] Comment on above: Performed By: #### C BCMAN #### [facility] [address] [place] [address] Dr. Wyatt Leger BAND # Normal 0.0-0.3 [facility] Comment on above: Performed By: #### C BESSIE #### [facility] [address] [place] [address] Dr. Wyatt Leger BAND % Normal 0-5 [facility] Comment on above: Performed By: #### C BESSIE #### [facility] [address] [place] [address] Dr. Wyatt Leger BASOM # 0.00 103/ul Normal 0.00-0.10 [facility] Comment on above: Performed By: #### C BESSIE #### [facility] [address] [place] [address] Dr. Wyatt Leger BASOM % 0.0 % Critically low 0.2-2.0 [facility] Comment on above: Performed By: #### C BESSIE #### [facility] [address] [place] [address] Dr. Wyatt Leger BLAST # Normal [facility] Comment on above: Performed By: #### C BESSIE #### [facility] [address] [place] [address] Dr. Wyatt Leger BLAST % Normal [facility] Comment on above: Performed By: #### C BESSIE #### [facility] [address] [place] [address] Dr. Wyatt Leger CORRECTED WBC Normal 4.0-11.0 [facility] Comment on above: Performed By: #### C BESSIE #### [facility] [address] [place] [address] Dr. Wyatt Leger EOS # 0.05 103/ul Normal 0.00-0.70 [facility] Comment on above: Performed By: #### C BESSIE #### [facility] [address] [place] [address] Dr. Wyatt Leger EOS% 1.0 % Normal 0.9-7.0 [facility] Comment on above: Performed By: #### C BESSIE #### [facility] [address] [place] [address] Dr. Wyatt Leger HCT 43.2 % Normal 42.0-54.0 [facility] Comment on above: Performed By: #### C BESSIE #### [facility] [address] [place] [address] Dr. Wyatt Leger HGB 14.7 g/dl Normal 14.0-18.0 [facility] Comment on above: Performed By: #### C BESSIE #### [facility] [address] [place] [address] Dr. Wyatt Leger LYMPHM # 0.97 103/ul Critically low 1.20-3.80 [facility] Comment on above: Performed By: #### C BESSIE #### [facility] [address] [place] [address] Dr. Wyatt Leger LYMPHM% 21.0 % Normal 20.5-60.0 [facility] Comment on above: Performed By: #### C BESSIE #### [facility] [address] [place] [address] Dr. Wyatt Leger MCH 31.2 pg Normal 25.9-34.0 [facility] Comment on above: Performed By: #### C BESSIE #### [facility] [address] [place] [address] Dr. Wyatt Leger MCHC 34.0 g/dl Normal 29.9-35.2 [facility] Comment on above: Performed By: #### C BESSIE #### [facility] [address] [place] [address] Dr. Wyatt Leger MCV 91.7 fL Normal 80.0-94.0 [facility] Comment on above: Performed By: #### C BESSIE #### [facility] [address] [place] [address] Dr. Wyatt Leger METAMYELOCYTE # Normal [facility] Comment on above: Performed By: #### C BESSIE #### [facility] [address] [place] [address] Dr. Wyatt Leger METAMYELOCYTE % Normal [facility] Comment on above: Performed By: #### C BESSIE #### [facility] [address] [place] [address] Dr. Wyatt Leger MONOM# 0.00 103/ul Critically low 0.30-0.80 [facility] Comment on above: Performed By: #### C BESSIE #### [facility] [address] [place] [address] Dr. Wyatt Leger MONOM% 0.0 % Critically low 1.7-12.0 [facility] Comment on above: Performed By: #### C BESSIE #### [facility] [address] [address] [address] Wyatt Leger MPV 9.1 fL Critically low 9.5-13.5 [facility] Comment on above: Performed By: #### C BESSIE #### [facility] [address] [address] [address] Wyatt Leger MYELOCYTE # Normal [facility] Comment on above: Performed By: #### C BESSIE #### [facility] [address] [address] [address] Wyatt Leger MYELOCYTE % Normal [facility] Comment on above: Performed By: #### C BESSIE #### [facility] [address] [place] [address] Dr. Wyatt Leger NRBC Normal [facility] Comment on above: Performed By: #### C BESSIE #### [facility] [address] [place] [address] Dr. Wyatt Leger PLT 272 103/ul Normal 150-450 [facility] Comment on above: Performed By: #### C BESSIE #### [facility] [address] [place] [address] Dr. Wyatt Leger RBC 4.71 106/ul Normal 4.70-6.10 [facility] Comment on above: Performed By: #### C BESSIE #### [facility] [address] [place] [address] Dr. Wyatt Leger RDW 12.2 % Normal 11.0-15.0 [facility] Comment on above: Performed By: #### C BESSIE #### [facility] [address] [place] [address] Dr. Wyatt Leger SEG # 3.59 103/ul Normal 1.40-6.50 [facility] Comment on above: Performed By: #### C BESSIE #### [facility] [address] [place] [address] Dr. Wyatt Leger SEG % 78.0 % Critically high 43.0-75.0 [facility] Comment on above: Result Comment: VACU OLES SEEN Performed By: #### C BESSIE #### [facility] [address] [address] [address] Wyatt Leger WBC 4.6 103/ul Normal 4.0-11.0 [facility] Comment on above: Performed By: #### C ASHLYNLEESA #### [facility] [address] [place] [address] Dr. Wyatt Leger CULTURE BLOODon 10-21-2022 Microscopic examination of blood, culture Culture Observations: NO GROWTH AT 5 DAYS. Normal [facility] Comment on above: Performed By: #### B LDCX2 #### [facility] [address] [address] [address] Wyatt Leger Microscopic examination of blood, culture Culture Observations: NO GROWTH AT 5 DAYS. Normal [facility] Comment on above: Performed By: #### B LDCX2 #### [facility] [address] [place] [address] Dr. Wyatt Leger Cov[facility]-19 PCR [facility]on SARS-CoV-2 (COVID-19) RNA MIGUEL+probe Ql (Unsp spec) Not detected Normal NOT DETECTED [facility] Comment on above: Result Comment: When diagnostic testing is negative, the possibility of a false negative should be considered in the context of a patient's recent exposures and the presence of clinical signs and symptoms consistent with SARS-CoV-2. This test is not yet approved or cleared by the [place] FDA. When there are no FDA-approved or cleared tests available, and other criteria are met, FDA can make tests available under an emergency access mechanism called an Emergency Use Authorization (EUA). The EUA for this test is supported by the Steward of Health and Human Service's declaration that circumstances exist to justify the emergency use of in vitro diagnostics for the detection and/or diagnosis of the virus that causes COVID-19. This EUA will remain in effect for the duration of the COVID-19 declaration justifying emergency of IVDs, unless it is terminated or revoked by the FDA (after which the test may no longer be used). Performed By: #### B LDCX2 #### [facility] [address] [place] [address] Dr. Wyatt Leger INFLUENZA A AND B AGon 10-21 [facility] Normal [facility] Comment on above: Result Comment: Nega tive for Flu A protein angiten. Infection due to Flu A cannot be ruled out. Flu A angiten in the sample may be below the detection limit of the test. Performed By: #### B LDCX2 #### [facility] [address] [place] [address] Dr. [facility] Normal [facility] Comment on above: Result Comment: Nega tive for Flu B protein antigen. Infection due to Flu B cannot be ruled out. Flu B antigen in the sample may be below the detection limit of the test. Performed By: #### B LDCX2 #### [facility] [address] [place] [address] Dr. Wyatt Leger INFLUENZA A AG Negative Normal NEGATIVE SEE COMMENT [facility] Comment on above: Performed By: #### B LDCX2 #### [facility] [address] [place] [address] Dr. Wyatt Leger INFLUENZA B AG Negative Normal NEGATIVE SEE COMMENT [facility] Comment on above: Performed By: #### B LDCX2 #### [facility] [address] [place] [address] Dr. Wyatt Leger LACTATE/LACTIC ACIDon 2022 Lactate [Moles/Vol] 2.3 mmol/L Critically high 0.4-1.9 [facility] Comment on above: Performed By: #### L ACT #### [facility] [address] [place] [address] Dr. Wyatt Leger PROF 14(COMP METB)on 023 Albumin [Mass/Vol] 3.7 g/dL Normal 3.4-5.0 [facility] Comment on above: Performed By: #### H STROPN, BNP, CMP #### [facility] [address] [place] [address] Dr. Wyatt Leger Albumin/Globulin [Mass ratio] 0.9 {ratio} Normal [facility] Comment on above: Performed By: #### H STROPN, BNP, CMP #### [facility] [address] [address] [address] Wyatt Leger ALP [Catalytic activity/Vol] 93 U/L Normal 46-116 [facility] Comment on above: Performed By: #### H STROPN, BNP, CMP #### [facility] [address] [address] [address] Wyatt Leger ALT [Catalytic activity/Vol] 31 U/L Normal 16-63 [facility] Comment on above: Performed By: #### H STROPN, BNP, CMP #### [facility] [address] [address] [address] Wyatt Leger Anion gap [Moles/Vol] 10.4 mmol/L Normal [facility] Comment on above: Performed By: #### H STROPN, BNP, CMP #### [facility] [address] [place] [address] Dr. Wyatt Leger AST [Catalytic activity/Vol] 40 U/L Critically high 15-37 [facility] Comment on above: Performed By: #### H STROPN, BNP, CMP #### [facility] [address] [place] [address] Dr. Wyatt Leger Bilirubin [Mass/Vol] 0.5 mg/dL Normal 0.2-1.0 [facility] Comment on above: Performed By: #### H STROPN, BNP, CMP #### [facility] [address] [place] [address] Dr. Wyatt Leger Calcium [Mass/Vol] 8.7 mg/dL Normal 8.5-10.1 [facility] Comment on above: Performed By: #### H STROPN, BNP, CMP #### [facility] [address] [address] [address] Wyatt Leger Chloride [Moles/Vol] 102 mmol/L Normal 98-107 [facility] Comment on above: Performed By: #### H STROPN, BNP, CMP #### [facility] [address] [address] [address] Wyatt Leger CO2 [Moles/Vol] 29.6 mmol/L Normal 21.0-32.0 [facility] Comment on above: Performed By: #### H STROPN, BNP, CMP #### [facility] [address] [address] [address] Wyatt Leger Creatinine [Mass/Vol] 0.89 mg/dL Normal 0.70-1.30 [facility] Comment on above: Performed By: #### H STROPN, BNP, CMP #### [facility] [address] [address] [address] Wyatt Leger EGFR-AF LIBERIAN >60 Normal >=60 [facility] Comment on above: Performed By: #### H STROPN, BNP, CMP #### [facility] [address] [address] [address] Wyatt Leger EGFR-NON AF LIBERIAN >60 Normal >=60 [facility] Comment on above: Performed By: #### H STROPN, BNP, CMP #### [facility] [address] [address] [address] Wyatt Leger Globulin (S) [Mass/Vol] 4.0 g/dL Normal [facility] Comment on above: Performed By: #### H STROPN, BNP, CMP #### [facility] [address] [address] [address] Wyatt Leger Glucose [Mass/Vol] 102 mg/dL Normal 74-106 [facility] Comment on above: Performed By: #### H STROPN, BNP, CMP #### [facility] [address] [address] [address] Wyatt Leger Potassium [Moles/Vol] 4.0 mmol/L Normal 3.5-5.1 [facility] Comment on above: Performed By: #### H STROPN, BNP, CMP #### [facility] [address] [address] [address] Wyatt Leger Protein [Mass/Vol] 7.7 g/dL Normal 6.4-8.2 [facility] Comment on above: Performed By: #### H STROPN, BNP, CMP #### [facility] [address] [address] [address] Wyatt Leger Sodium [Moles/Vol] 138 mmol/L Normal 136-145 [facility] Comment on above: Performed By: #### H STROPN, BNP, CMP #### [facility] [address] [address] [address] Wyatt Leger Urea nitrogen [Mass/Vol] 17.0 mg/dL Normal 7.0-18.0 [facility] Comment on above: Performed By: #### H STROPN, BNP, CMP #### [facility] [address] [address] [address] Wyatt Leger Urea nitrogen/Creatinine [Mass ratio] 19.1 mg/mg Normal [facility] Comment on above: Performed By: #### H STROPN, BNP, CMP #### [facility] [address] [place] [address] Dr. Wyatt Leger TROPONIN, HIGH SENSITIVITYon 10-21-2022 HSTROP 441.2 pg/mL Critically high 4.0-76.1 [facility] Comment on above: Result Comment: CUT- OFF POINTS HAVE BEEN ESTABLISHED BASED ON THE FOURTH UNIVERSAL DEFINITIONS OF MYOCARDIAL INFARCTION. THE UPPER REFERENCE LIMIT (URL) OF TROPONIN, DEFINED THE 99TH PERCENTILE OF cTnI DISTRIBUTION IN A REFERENCE POPULATION, HAS BEEN CONFIRMED THE DECISION THRESHOLD FOR LA DIAGNOSIS. Performed By: #### H STROPN #### [facility] [address] [place] [address] Dr. Wyatt Leger HSTROP 14.6 pg/mL Normal 4.0-76.1 [facility] Comment on above: Result Comment: CUT- OFF POINTS HAVE BEEN ESTABLISHED BASED ON THE FOURTH UNIVERSAL DEFINITIONS OF MYOCARDIAL INFARCTION. THE UPPER REFERENCE LIMIT (URL) OF TROPONIN, DEFINED THE 99TH PERCENTILE OF cTnI DISTRIBUTION IN A REFERENCE POPULATION, HAS BEEN CONFIRMED THE DECISION THRESHOLD FOR LA DIAGNOSIS. Performed By: #### H STROPN, BNP, CMP #### [facility] [address] [place] [address] Dr. Wyatt Leger XR CHEST 1 Von 10-21-2022 XR CHEST 1 V EXAMINATION: XR CHES T 1 V HISTORY: SHORTNESS OF BREATH COMPARISON: 03/28/2021 TECHNIQUE: AP portable FINDINGS: LUNGS: No significant pulmonary parenchymal abnormalities. VASCULATURE: No increased pulmonary vasculature. PLEURA: No pneumothorax, effusion, or pleural thickening. CARDIAC: No cardiomegaly or cardiac silhouette abnormality. MEDIASTINUM: No visible mass or adenopathy. BONES: No fracture or visible bone lesion. Stable remote right posterior fractures OTHER: Swain obscured by the head position IMPRESSION: Clear lungs Electronically authenticated by: ARIANA ROSAS Date: 2022-10-21 19:36 Normal [facility] Complete Blood Counton 10-27 Erythrocyte distribution width (RBC) [Ratio] 12.6 % Normal 11.0-15.0 [facility] Comment on above: Performed By: #### C BC, CMP, TSH reflex FT4, LIPD #### [facility] [address], [place] [id number] Hematocrit (Bld) [Volume fraction] 43.4 % Normal 38.5-50.0 [facility] Comment on above: Performed By: #### C BC, CMP, TSH reflex FT4, LIPD #### [facility] [address], [place] [id number] Hemoglobin (Bld) [Mass/Vol] 14.5 g/dL Normal 13.0-17.1 [facility] Comment on above: Performed By: #### C BC, CMP, TSH reflex FT4, LIPD #### [facility] [address], [place] [id number] MCH (RBC) [Entitic mass] 31.3 pg Normal 27.0-33.0 [facility] Comment on above: Performed By: #### C BC, CMP, TSH reflex FT4, LIPD #### [facility] [address], [place] [id number] MCHC (RBC) [Mass/Vol] 33.4 g/dL Normal 32.0-36.0 [facility] Comment on above: Performed By: #### C BC, CMP, TSH reflex FT4, LIPD #### [facility] [address], [place] [id number] MCV (RBC) [Entitic vol] 94 fL Normal 80-100 [facility] Comment on above: Performed By: #### C BC, CMP, TSH reflex FT4, LIPD #### [facility] [address], [place] [id number] Platelet mean volume (Bld) [Entitic vol] 9.60 fL Normal 7.50-12.50 [facility] Comment on above: Performed By: #### C BC, CMP, TSH reflex FT4, LIPD #### [facility] [address], [place] [id number] Platelets (Bld) [#/Vol] 354 10*3/uL Normal 140-400 [facility] Comment on above: Performed By: #### C BC, CMP, TSH reflex FT4, LIPD #### [facility] [address], [place] [id number] RBC (Bld) [#/Vol] 4.63 10*6/uL Normal 4.20-5.80 [facility] Comment on above: Performed By: #### C BC, CMP, TSH reflex FT4, LIPD #### [facility] [address], [place] [id number] RDW-SD 43.8 fL Normal 37.0-50.0 [facility] Comment on above: Performed By: #### C BC, CMP, TSH reflex FT4, LIPD #### [facility] [address], [place] [id number] WBC (Bld) [#/Vol] 6.4 10*3/uL Normal 3.8-11.0 [facility] Comment on above: Performed By: #### C BC, CMP, TSH reflex FT4, LIPD #### [facility] [address], [place] [id number] Comprehensive Metabolic Pane ethel 10-27-2021 Albumin [Mass/Vol] 4.3 g/dL Normal 3.6-5.1 [facility] Comment on above: Performed By: #### C BC, CMP, TSH reflex FT4, LIPD #### [facility] [address], [place] [id number] Albumin/Globulin [Mass ratio] 1.7 {ratio} Normal 1.0-2.5 [facility] Comment on above: Performed By: #### C BC, CMP, TSH reflex FT4, LIPD #### [facility] [address], [place] [id number] ALP [Catalytic activity/Vol] 77 U/L Normal 40-129 [facility] Comment on above: Performed By: #### C BC, CMP, TSH reflex FT4, LIPD #### [facility] [address], [place] [id number] ALT [Catalytic activity/Vol] 9 U/L Normal 9-46 [facility] Comment on above: Result Comment: 09/17 Female reference range changed. Performed By: #### C BC, CMP, TSH reflex FT4, LIPD #### [facility] [address], [place] [id number] Anion gap [Moles/Vol] 18 mmol/L Normal 12-20 [facility] Comment on above: Result Comment: Effe ctive 10/23/2019 reference range changed. Performed By: #### C BC, CMP, TSH reflex FT4, LIPD #### [facility] [address], [place] [id number] AST [Catalytic activity/Vol] 12 U/L Normal 10-40 [facility] Comment on above: Performed By: #### C BC, CMP, TSH reflex FT4, LIPD #### [facility] [address], [place] [id number] Bilirubin [Mass/Vol] 0.64 mg/dL Normal 0.30-1.20 [facility] Comment on above: Performed By: #### C BC, CMP, TSH reflex FT4, LIPD #### [facility] [address], [place] [id number] BUN/CREA 16 Ratio Normal 6-22 [facility] Comment on above: Performed By: #### C BC, CMP, TSH reflex FT4, LIPD #### [facility] [address], [place] [id number] Calcium [Mass/Vol] 9.7 mg/dL Normal 8.6-10.2 [facility] Comment on above: Performed By: #### C BC, CMP, TSH reflex FT4, LIPD #### [facility] [address], [place] [id number] Chloride [Moles/Vol] 105 mmol/L Normal 98-107 [facility] Comment on above: Performed By: #### C BC, CMP, TSH reflex FT4, LIPD #### [facility] [address], [place] [id number] CO2 [Moles/Vol] 24 mmol/L Normal 20-31 [facility] Comment on above: Performed By: #### C BC, CMP, TSH reflex FT4, LIPD #### [facility] [address], [place] [id number] Creatinine [Mass/Vol] 0.9 mg/dL Normal 0.7-1.4 [facility] Comment on above: Performed By: #### C BC, CMP, TSH reflex FT4, LIPD #### [facility] [address], [place] [id number] eGFRAA 97 mL/min/1.73m2 Normal >60 [facility] Comment on above: Performed By: #### C BC, CMP, TSH reflex FT4, LIPD #### [facility] [address], [place] [id number] eGFRNAA 80 mL/min/1.73m2 Normal >60 [facility] Comment on above: Performed By: #### C BC, CMP, TSH reflex FT4, LIPD #### [facility] [address], [place] [id number] Globulin (S) [Mass/Vol] 2.5 g/dL Normal 1.9-3.7 [facility] Comment on above: Performed By: #### C BC, CMP, TSH reflex FT4, LIPD #### [facility] [address], [place] [id number] Glucose [Mass/Vol] 96 mg/dL Normal 65-99 [facility] Comment on above: Result Comment: For FASTING Glucose --- ADA reference ranges: Normal 65-99 mg/dl Prediabetes 100-125 Diabetes >/= 126 Performed By: #### C BC, CMP, TSH reflex FT4, LIPD #### [facility] [address], [place] [id number] Potassium [Moles/Vol] 5.0 mmol/L Normal 3.5-5.5 [facility] Comment on above: Performed By: #### C BC, CMP, TSH reflex FT4, LIPD #### [facility] [address], [place] [id number] Protein [Mass/Vol] 6.8 g/dL Normal 6.1-8.1 [facility] [place] [facility] Comment on above: Performed By: #### C BC, CMP, TSH reflex FT4, LIPD #### [facility] [address], [place] [id number] Sodium [Moles/Vol] 141 mmol/L Normal 135-146 [facility] Comment on above: Performed By: #### C BC, CMP, TSH reflex FT4, LIPD #### [facility] [address], [place] [id number] Urea nitrogen [Mass/Vol] 15 mg/dL Normal 7-25 [facility] Comment on above: Performed By: #### C BC, CMP, TSH reflex FT4, LIPD #### [facility] [address], [place] [id number] Lipid Panelon 10-27-2021 Cholesterol [Mass/Vol] 151 mg/dL Normal 125-200 [facility] Comment on above: Result Comment: Low risk < 200mg/dL Borderline risk 201-239 mg/dl High risk > or equal to 240 Performed By: #### C BC, CMP, TSH reflex FT4, LIPD #### [facility] [address], [place] [id number] Cholesterol in HDL [Mass/Vol] 50 mg/dL Normal >40 [facility] Comment on above: Result Comment: High Cardiovascular Risk HDL <40 mg/dL Low Cardiovascular Risk HDL > or equal to 60 mg/dl Performed By: #### C BC, CMP, TSH reflex FT4, LIPD #### [facility] [address], [place] [id number] Cholesterol in LDL [Mass/Vol] 87 mg/dL Normal [facility] Comment on above: Result Comment: LDL ATP III CLASSIFICATION LDL less than 100 mg/dl Optimal LDL 100-129 mg/dl Near or above optimal LDL 130-159 Borderline high LDL 160-189 High LDL greater than 189 mg/dl Very High Performed By: #### C BC, CMP, TSH reflex FT4, LIPD #### [facility] [address], [place] [id number] Cholesterol in VLDL [Mass/Vol] 14 mg/dL Normal [facility] Comment on above: Performed By: #### C BC, CMP, TSH reflex FT4, LIPD #### [facility] [address], [place] [id number] Cholesterol.total/Ch olesterol in HDL [Mass ratio] 3 {ratio} Normal [facility] Comment on above: Performed By: #### C BC, CMP, TSH reflex FT4, LIPD #### [facility] [address], [place] [id number] Triglyceride [Mass/Vol] 69 mg/dL Normal 30-150 [facility] Comment on above: Result Comment: TRIG ATPIII CLASSIFICATIONS TRIG less than 150 mg/dl Normal TRIG 150-199 mg/dl Borderline High TRIG 200-500 mg/dl High TRIG greather than 500 mg/dl Very High Performed By: #### C BC, CMP, TSH reflex FT4, LIPD #### [facility] [address], [place] [id number] PSA SCREEN (MEDICARE)on 10-18 TPSA 0.549 ng/mL Normal <4.000 [facility] Comment on above: Result Comment: PSA Test Method: ECLIA/Jerald e 601 Performed By: #### P SA #### [facility] [address], [place] [id number] TSH w/ Reflex to Free T4on 0 10-27-2021 TSH 0.979 uIU/mL Normal 0.400-4.50 0 [facility] Comment on above: Performed By: #### C BC, CMP, TSH reflex FT4, LIPD #### [facility] [address], [place] [id number] CULTURE, AEROBIC AND ANAEROB IC W/GRAM STAINon 04-16-2020 CULTURE SEE NOTE Normal [facility] Comment on above: Result Comment: CULTURE, AEROBIC BACTERIA Micro Number: [id number] Test Status: Final Specimen Source: SKIN Specimen Quality: Adequate Result: Growth of skin janine (note: Growth does not include S. aureus, beta-hemolytic Streptococci or P. aeruginosa). Performed By: #### 4 446 #### [facility] [address], [address] [place] [address] [employer] Specialist: Simone Singletary MD CULTURE, ANAEROBIC BACTERIA W/GRAM STAIN SEE NOTE Normal [facility] Comment on above: Result Comment: CULTURE, ANAEROBIC BACTERIA W/GRAM STAIN Micro Number: [id number] Test Status: Final Specimen Source: [id number] Specimen Quality: Adequate Gram Stain: No organisms or white blood cells seen Result: No anaerobes isolated. Performed By: #### 4 446 #### [facility] [address], [address] [place] [address] [employer] It Specialist: Simone Singletary MD Vital Signs Date Time Vital Sign Value Performing Clinician Facility 02-14-2024 10:15-0400 Diastolic blood pressure 78 mm[Hg] [facility] [place] [facility] [facility] 02-14-2024 10:15-0400 Mean blood pressure 111 mm[Hg] [facility] 02-14-2024 10:15-0400 Systolic blood pressure 178 mm[Hg] [facility] [place] [facility] 02-14-2024 10:00-0400 Blood Pressure Location [facility] [place] [facility] 02-14-2024 10:00-0400 Diastolic blood pressure 92 mm[Hg] Lm [facility] 02-14-2024 10:00-0400 Heart rate 60 /min [facility] 02-14-2024 10:00-0400 SaO2% (BldA) [Mass fraction] 97 % [facility] [place] [facility] 02-14-2024 10:00-0400 Systolic blood pressure 185 mm[Hg] [facility] [place] [facility] 01-13-2024 09:23-0400 Diastolic blood pressure 72 mm[Hg] [facility] 01-13-2024 09:23-0400 Heart rate 70 /min L[facility] 01-13-2024 09:23-0400 SaO2% (BldA) [Mass fraction] 99 % [facility] 01-13-2024 09:23-0400 Systolic blood pressure 132 mm[Hg] [facility] [facility] 01-05-2024 21:20-0400 Diastolic blood pressure 91 mm[Hg] [facility] 01-05-2024 21:20-0400 Heart rate 80 /min [facility] 01-05-2024 21:20-0400 Mean blood pressure 117 mm[Hg] [facility] 01-05-2024 21:20-0400 Respiratory rate 22 /min [facility] 01-05-2024 21:20-0400 SaO2% (BldA) [Mass fraction] 94 % [facility] 01-05-2024 21:20-0400 Systolic blood pressure 168 mm[Hg] [facility] 01-05-2024 19:30-0400 Diastolic blood pressure 95 mm[Hg] [facility] 01-05-2024 19:30-0400 Heart rate 71 /min [facility] 01-05-2024 19:30-0400 Mean blood pressure 122 mm[Hg] [facility] 01-05-2024 19:30-0400 Respiratory rate 11 /min [facility] 01-05-2024 19:30-0400 SaO2% (BldA) [Mass fraction] 97 % [facility] 01-05-2024 19:30-0400 Systolic blood pressure 175 mm[Hg] [facility] 01-05-2024 18:41-0400 Diastolic blood pressure 89 mm[Hg] [facility] 01-05-2024 18:41-0400 Heart rate 79 /min [facility] 01-05-2024 18:41-0400 Mean blood pressure 113 mm[Hg] [facility] 01-05-2024 18:41-0400 Respiratory rate 22 /min [facility] 01-05-2024 18:41-0400 SaO2% (BldA) [Mass fraction] 98 % [facility] 01-05-2024 18:41-0400 Systolic blood pressure 160 mm[Hg] [facility] 01-05-2024 18:21-0400 Respiratory rate 10 /min [facility] 01-05-2024 18:14-0400 Respiratory rate 14 /min [facility] 01-05-2024 17:40-0400 Body temperature 98.24 [degF] [facility] 01-05-2024 17:40-0400 Heart rate 94 /min [facility] 01-05-2024 17:40-0400 Respiratory rate 16 /min [facility] 12-27-2023 12:09-0400 Blood Pressure Location Lorenzo STILL [facility] 12-27-2023 12:09-0400 Diastolic blood pressure 86 mm[Hg] Lorenzo STILL [facility] 12-27-2023 12:09-0400 Heart rate 84 /min Lorenzo STILL [facility] 12-27-2023 12:09-0400 Respiratory rate 16 /min Lorenzo STILL [facility] 12-27-2023 12:09-0400 Systolic blood pressure 134 mm[Hg] Lorenzo TESSY [facility] 07-09-2023 12:39-0400 Body height 180.34 cm MD Rodney Julio Work Phone: [facility] 07-09-2023 12:39-0400 Body weight 72.57 kg MD Rodney Julio Work Phone: [facility] 07-09-2023 12:38-0400 Body temperature 97.7 [degF] MD Rodney Julio Work Phone: [facility] 07-09-2023 12:38-0400 Diastolic blood pressure 92 mm[Hg] MD Rodney Julio Work Phone: [facility] 07-09-2023 12:38-0400 Heart rate 73 /min MD Rodney Julio Work Phone: [facility] 07-09-2023 12:38-0400 Respiratory rate 20 /min MD Rodney Julio Work Phone: [facility] 07-09-2023 12:38-0400 SaO2% (BldA) [Mass fraction] 98 % MD Rodney Julio Work Phone: [facility] 07-09-2023 12:38-0400 Systolic blood pressure 191 mm[Hg] MD Rodney Julio Work Phone: [facility] 07-05-2023 10:38-0400 Blood Pressure Location Lorenzo TESSY [facility] 07-05-2023 10:38-0400 Diastolic blood pressure 68 mm[Hg] Lorenzo STILL [facility] 07-05-2023 10:38-0400 Heart rate 65 /min Lorenzoalexis STILL [facility] 07-05-2023 10:38-0400 Respiratory rate 16 /min Lorenzoalexis STILL [facility] 07-05-2023 10:38-0400 Systolic blood pressure 116 mm[Hg] Lorenzoalexis STILL [facility] 12-28-2022 13:00-0400 Blood Pressure Location Lorenzoalexis STILL [facility] 12-28-2022 13:00-0400 Diastolic blood pressure 79 mm[Hg] Lorenzoalexis STILL [facility] 12-28-2022 13:00-0400 Heart rate 60 /min Lorenzoalexis STILL [facility] 12-28-2022 13:00-0400 Systolic blood pressure 135 mm[Hg] Lorenzoalexis STILL [facility] 12-07-2022 09:32-0500 Body height 177.8 cm Judah Ledesma Work Phone: [facility] 250 DO Work Phone: 12-07-2022 09:32-0500 Body mass index (BMI) [Ratio] 23.24 kg/m2 Judah Ledesma Work Phone: [facility] 250 DO Work Phone: 12-07-2022 09:32-0500 Body surface area Derived from formula 1.91 m2 Judah Ledesma Work Phone: [facility] 250 DO Work Phone: 12-07-2022 09:32-0500 Body weight 73.48 kg Judah Parkerring Work Phone: [facility] 250 DO Work Phone: 12-07-2022 09:32-0500 Diastolic blood pressure 70 mm[Hg] Judah A Ledesma Work Phone: [facility] 250 DO Work Phone: 12-07-2022 09:32-0500 Heart rate 72 /min Judah A Ledesma Work Phone: [facility] [facility] DO Work Phone: 12-07-2022 09:32-0500 Systolic blood pressure 128 mm[Hg] Judah A Ledesma Work Phone: [facility] [facility] DO Work Phone: 2022 09:48-0500 Body temperature 97.34 [degF] Judah Ledesma Other Phone: [facility] 2022 09:48-0500 Diastolic blood pressure 72 mm[Hg] Judah Ledesma Other Phone: [facility] 2022 09:48-0500 Heart rate 63 /min Judah Ledesma Other Phone: [facility] 2022 09:48-0500 SaO2% (BldA) [Mass fraction] 95 % Judah Ledesma Other Phone: [facility] 2022 09:48-0500 Systolic blood pressure 165 mm[Hg] Judah Ledesma Other Phone: [facility] Encounters Encounter Date Encounter Type Care Provider Facility Start: 02-14-2024 End: 02-15-2024 ambulatory XXXX NONE [facility] Start: 02-14-2024 End: 02-14-2024 Patient encounter procedure Lm Mesam [facility] Start: 01-31-2024 End: 02-16-2024 ambulatory [facility] Start: 01-27-2024 End: 01-28-2024 ambulatory Bashar X [place] Facility[place] Start: 01-27-2024 End: 01-27-2024 Patient encounter procedure Bashar X [place] [facility] Start: 01-13-2024 End: 01-14-2024 ambulatory Bashar X [place] Facility[place] Start: 01-13-2024 End: 01-13-2024 Patient encounter procedure Bashar X [place] [facility] Start: 01-05-2024 End: 01-05-2024 Emergency department patient visit Davi Drummondcorinne Facility[facility] Start: 01-05-2024 End: 01-05-2024 Emergency department patient visit [facility] Dash Drummondcorinne [facility] Start: 12-27-2023 End: 12-28-2023 ambulatory Lorenzo STILL Facility[facility] Start: 12-27-2023 End: 12-28-2023 ambulatory Lorenzo STILL Facility:[facility] Start: 12-27-2023 End: 12-27-2023 Lab Drop off Lorenzo STILL [facility] Start: 12-27-2023 End: 12-27-2023 Patient encounter procedure Lorenzo STILL [facility] Start: 10-27-2023 End: 10-27-2023 ambulatory ABRAHAN SANDS Not Available Start: 07-09-2023 End: 07-09-2023 Emergency department patient visit Abrahan Sands Facility:[facility] Start: 07-09-2023 End: 07-09-2023 Emergency department patient visit MD Rodney Julio Work Phone: [facility] Work Phone: Start: 07-05-2023 End: 07-06-2023 ambulatory Lorenzo STILL Facility:[facility] Start: 07-05-2023 End: 07-05-2023 Patient encounter procedure Lorenzo STILL [facility] Start: 06-29-2023 End: 06-30-2023 ambulatory KAT SAUCEDO [facility] Start: 12-28-2022 End: 12-28-2022 Patient encounter procedure Lorenzo STILL [facility] Start: 12-07-2022 Office outpatient vi sit 25 minutes Judah Ledesma Work Phone: [facility] 250 DO Work Phone: Start: 12-07-2022 ambulatory Judah Alejandra II Facility: Start: 12-04-[address] Goran Palmer Facility: Start: 11-30-2022 End: 11-30-2022 Lab Drop off Lorenzo STILL [facility] Start: 11-30-2022 End: 11-30-2022 Patient encounter procedure Lorenzo STILL [facility] Start: 10-29-2022 Patient encounter procedure Judah Ledesma Work Phone: [facility] 250 DO Work Phone: Start: 10-29-2022 ambulatory Judah Alejandra II Facility: Start: 10-23-2022 AUDIT Judah arenas Work Phone: [facility] Work Phone: Start: 10-22-2022 End: 2022 Evaluation and management of inpatient Feng Ospina 8 Cardio ICU 814 01 Start: 10-21-2022 End: 10-22-[address] JUDAH ALEJANDRA Facility:[facility] Start: 05-22-2022 End: 05-23-[address] JUDAH ALEJANDRA Facility:[facility] Start: 04-27-2022 End: 04-27-2022 Patient encounter procedure Lorenzo STILL [facility] Procedures Date Procedure Procedure Detail Performing Clinician Start: 10-22-2022 Echocardiography Judah Ledesma Work Phone: Start: 10-22-2022 End: 10-22-2022 EKG impression Naldo Holder Start: 10-18-2006 History of radiation therapy Lorenzo SILVER Cataract surgery Judah Dela Cruz rring Work Phone: Colonoscopy Lorenzo STILL Esophagogastroduodenoscopy Emir Ledesma Work Phone: Extraction of cataract Buddy STILL Implantation of coch lear prosthetic device Judah Ledesma Work Phone: steel plate in head Lorenzo STILL Tonsillectomy Judah arenas Work Phone: Tooth extraction, complete upper Lorenzo STILL Total colonoscopy Judah arrington Work Phone: Comment on above: 2013; Plan of Treatment Date Care Activity Detail Author Start: 07-10-2024 ambulatory Ambulatory Facility:[facility] Start: 12-07-2022 FUV, Provider: Jc Everett, Status: Pen, Time: 9:50 AM FUV, Provider: Jc Everett, Status: Pen, Time: 9:50 AM -[facility] 250 DO Work Phone: Start: 10-22-2022 End: 10-23-2023 [facility] H/O: surgery History of cochl ear implant [facility] History of tonsillectomy History of tonsi llectomy [facility] NSTEMI, initial epis ode of care NSTEMI, initial episode of care [facility] Patient referral [facility] Work Phone: Immunizations Immunization Date Immunization Notes Care Provider Mary tee 08-05-2022 influenza virus vaccine, unspecified formulation Lorenzo STILL [facility] 09-22-2021 SARS-CoV-2 (COVID-19 ) mRNA BNT-162b2 vax Lorenzo STILL [facility] 08-26-2021 influenza virus vaccine, unspecified formulation Lorenzo STILL [facility] 01-03-2021 SARS-CoV-2 (COVID-19 ) mRNA BNT-162b2 vax Lorenzo STILL [facility] 12-13-2020 SARS-CoV-2 (COVID-19 ) mRNA BNT-162b2 vax Lorenzo STILL [facility] 06-14-2019 influenza virus vaccine, unspecified formulation Lorenzo STILL [facility] 08-13-2018 influenza virus vaccine, unspecified formulation Lorenzo STILL [facility] 07-18-2018 influenza virus vaccine, unspecified formulation Lorenzo STILL [facility] 08-11-2017 influenza, unspecifi ed formulation Lorenzo STILL [facility] 06-07-2017 influenza virus vaccine, unspecified formulation Lorenzo STILL [facility] 06-07-2017 tetanus toxoid, redu latanya diphtheria toxoid, and acellular pertussis vaccine, adsorbed Lorenzo STILL [facility] 11-29-2015 influenza virus vaccine, unspecified formulation Lorenzo STILL [facility] 03-18-2015 pneumococcal polysaccharide vaccine, 23 valent Lorenzo STILL [facility] 01-23-2015 pneumococcal conjuga te vaccine, 13 valent Lorenzoalexis STILL [facility] NEGATED: Highlighted row has not occurred!08-30-2020 influenza virus vaccine, unspecified formulation Lorenzo STILL [facility] Payers Date Payer Category Payer Medicare [id number] 2023 Self-pay [id number] 2022 Private Health Insurance [id number] 1961 Medicare [id number] 1961 Medicare [id number] 1948 Unknown [id number] 2.16.840.1.084155.3.579.2.5 93 1948 Unknown [id number] 2.16.840.1.382491.3.579.2.5 93 1948 Unknown [id number] 2.16.840.1.716232.3.579.2.1 068 1948 Unknown [id number] 2.16.840.1.081489.3.579.2.3 56 1948 Unknown [id number] 2.16.840.1.047792.3.579.2.3 56 1948 Unknown [id number] 2.16.840.1.346029.3.579.2.3 56 1948 Unknown [id number] 2.16.840.1.583499.3.579.2.1 259 1948 Unknown [id number] 2.16.840.1.572482.3.579.2.1 286 1948 Unknown [id number] 2.16.840.1.305385.3.579.2.7 27 1948 Unknown [id number] 2.16.840.1.363721.3.579.2.7 27 1948 Unknown [id number] 2.16.840.1.157168.3.579.2.7 27 1948 Unknown [id number] 2.16.840.1.507471.3.579.2.7 27 1948 Unknown [id number] 2.16.840.1.133561.3.579.2.7 27 1948 Unknown [id number] 2.16.840.1.459048.3.579.2.7 27 1948 Unknown [id number] 2.16.840.1.957644.3.579.2.7 27 1948 Unknown [id number] 2.16.840.1.311313.3.579.2.7 27 1948 Unknown [id number] 2.16.840.1.161123.3.579.2.7 27 1948 Unknown [id number] 2.16.840.1.682648.3.579.2.7 27 Medicare [id number] Unknown Unknown [employer] [id number] Unknown [id number] 2.16.840.1.632731.3.579.2.5 31 Social History Date Type Detail Facility Start: 10-27-2021 End: 12-27-2023 Tobacco smoking status Never smoked tobacco (finding) [facility] Sex Assigned At Male [facility] Former smoker Former smoker [facility] Work Phone: Comment on above: 8 cups of coffee; Tobacco smoking consumption unknown [facility] Tobacco smoking status Never [facility] Start: 1950 Sex Assigned At Male [facility] Functional Status Date Assessment Result Facility 02-14-2024 Functional Status No [facility] 01-13-2024 Functional Status N/A [facility] 01-05-2024 Functional Status N/A [facility] 12-27-2023 Functional Status N/A [facility] 07-05-2023 Functional Status N/A [facility] 12-28-2022 Functional Status N/A [facility] 04-27-2022 Functional Status N/A [facility] Mental Status Date Assessment Result Facility 10-23-2022 Cognitive functions 23-Oct-19 2311:49 [facility] Clinical Notes 04-27-2022 to 01-13-2024 Note Date & Type Note Facility 01-13-2024 Note Microbiology PROCEDURE: Blood Culture Charcoal [R1] SOURCE: Blood BODY SITE: Arm L COLLECTED DATE/TIME: 01/05/2024 18:19 EDT RECEIVED DATE/TIME: 01/05/2024 19:44 EDT START DATE/TIME: 01/05/2024 19:44 EDT FREE TEXT SOURCE: Peripheral vein site #2 Cal Brown, Davi Mccall M.D., Davi Bowling FINAL REPORTS Final Report [] Verified Date/Time: 01/13/2024 07:00 EDT No growth at 7 days. Performing Locations R1: [facility], [address] [place] [address], [address] [place] [address], [facility] Comment on above: Performed By: #### 2 [id number] #### [facility] [address] [place] [id number] 01-13-2024 Note Microbiology PROCEDURE: Blood Culture Charcoal [R1] SOURCE: Blood BODY SITE: Arm R COLLECTED DATE/TIME: 01/05/2024 18:12 EDT RECEIVED DATE/TIME: 01/05/2024 19:44 EDT START DATE/TIME: 01/05/2024 19:44 EDT FREE TEXT SOURCE: Peripheral vein site #1 Cal Brown, Davi Mccall M.D., Davi Bowling FINAL REPORTS Final Report [] Verified Date/Time: 01/13/2024 07:00 EDT No growth at 7 days. Performing Locations R1: This test was performed at: [facility], [address] [place] [address], [address] [place] [address], [facility] Comment on above: Performed By: #### 2 [id number] #### [facility] [address] [place] [address] 01-05-2024 Hospital Discharg e instructions Patient Education 01/05/2024 21:23:20 Chronic Obstructive Pulmonary Disease, [id number] Chronic Obstructive Pulmonary Disease Chronic obstructive pulmonary disease (COPD) is a long-term (chronic) lung problem. When you have COPD, it is hard for air to get in and out of your lungs. Usually the condition gets worse over time, and your lungs will never return to normal. There are things you can do to keep yourself as healthy as possible. What are the causes? Smoking. This is the most common cause. Certain genes passed from parent to child (inherited). What increases the risk? Being exposed to secondhand smoke from cigarettes, pipes, or cigars. Being exposed to chemicals and other irritants, such as fumes and dust in the work environment. Having chronic lung conditions or infections. What are the signs or symptoms? Shortness of breath, especially during physical activity. A long-term cough with a large amount of thick mucus. Sometimes, the cough may not have any mucus (dry cough). Wheezing. Breathing quickly. Skin that looks valdovinos or blue, especially in the fingers, toes, or lips. Feeling tired (fatigue). Weight loss. Chest tightness. Having infections often. Episodes when breathing symptoms become much worse (exacerbations). At the later stages of this disease, you may have swelling in the ankles, feet, or legs. How is this treated? Taking medicines. Quitting smoking, if you smoke. Rehabilitation. This includes steps to make your body work better. It may involve a team of specialists. Doing exercises. Making changes to your diet. Using oxygen. Lung surgery. Lung transplant. Comfort measures (palliative care). Follow these instructions at home: Medicines Take rhaz-qkq-ccrdjkl and prescription medicines only as told by your doctor. Talk to your doctor before taking any cough or allergy medicines. You may need to avoid medicines that cause your lungs to be dry. Lifestyle If you smoke, stop smoking. Smoking makes the problem worse. Do not smoke or use any products that contain nicotine or tobacco. If you need help quitting, ask your doctor. Avoid being around things that make your breathing worse. This may include smoke, chemicals, and fumes. Stay active, but remember to rest as well. Learn and use tips on how to manage stress and control your breathing. Make sure you get enough sleep. Most adults need at least 7 hours of sleep every night. Eat healthy foods. Eat smaller meals more often. Rest before meals. Controlled breathing Learn and use tips on how to control your breathing as told by your doctor. Try: Breathing in (inhaling) through your nose for 1 second. Then, pucker your lips and breath out (exhale) through your lips for 2 seconds. Putting one hand on your belly (abdomen). Breathe in slowly through your nose for 1 second. Your hand on your belly should move out. Pucker your lips and breathe out slowly through your lips. Your hand on your belly should move in as you breathe out. Controlled coughing Learn and use controlled coughing to clear mucus from your lungs. Follow these steps: 1.Lean your head a little forward. 2.Breathe in deeply. 3.Try to hold your breath for 3 seconds. 4.Keep your mouth slightly open while coughing 2 times. 5.Spit any mucus out into a tissue. 6.Rest and do the steps again 1 or 2 times as needed. General instructions Make sure you get all the shots (vaccines) that your doctor recommends. Ask your doctor about a flu shot and a pneumonia shot. Use oxygen therapy and pulmonary rehabilitation if told by your doctor. If you need home oxygen therapy, ask your doctor if you should buy a tool to measure your oxygen level (oximeter). Make a COPD action plan with your doctor. This helps you to know what to do if you feel worse than usual. Manage any other conditions you have as told by your doctor. Avoid going outside when it is very hot, cold, or humid. Avoid people who have a sickness you can catch (contagious). Keep all follow-up visits. Contact a doctor if: You cough up more mucus than usual. There is a change in the color or thickness of the mucus. It is harder to breathe than usual. Your breathing is faster than usual. You have trouble sleeping. You need to use your medicines more often than usual. You have trouble doing your normal activities such as getting dressed or walking around the house. Get help right away if: You have shortness of breath while resting. You have shortness of breath that stops you from: ?Being able to talk. ?Doing normal activities. Your chest hurts for longer than 5 minutes. Your skin color is more blue than usual. Your pulse oximeter shows that you have low oxygen for longer than 5 minutes. You have a fever. You feel too tired to breathe normally. These symptoms may represent a serious problem that is an emergency. Do not wait to see if the symptoms will go away. Get medical help right away. Call your local emergency services (911 in the [place] Do not drive yourself to the hospital. Summary Chronic obstructive pulmonary disease (COPD) is a long-term lung problem. The way your lungs work will never return to normal. Usually the condition gets worse over time. There are things you can do to keep yourself as healthy as possible. Take [id number]-xuovvav and prescription medicines only as told by your doctor. If you smoke, stop. Smoking makes the problem worse. This information is not intended to replace advice given to you by your health care provider. Make sure you discuss any questions you have with your health care provider. Document Revised: 08/12/2021 Document Reviewed: 08/12/2021 No Paper [employer] Patient Education 2022 [employer]. Follow Up Care 01/05/2024 17:38:36 With:Lm Posada Address: [address] [place] [phone] Business (1) When:01/08/2024 21:01:21 Comments:Take the steroids once daily until you have completed the course, use the nebulizers every 4 hours for the next 2 to 3 days then decrease to as needed. He is follow-up with your primary care doctor in the next 2 to 3 days. Please return to the ED for any new or worsening symptoms. With:JUDAH ALEJANDRA Address: [address] [place] [phone] Business (1) When:Within 3 Day(s) [facility] 01-05-2024 Evaluation + Plan note Extrac estelle from: Title:ED Note Author:Daiv Mccall M.D. te:01/05/24 1. Chest pain (R07.9: Chest pain, unspecified) 2. COPD with acute exacerbation (J44.1: Chronic obstructive pulmonary disease with (acute) exacerbation) Orders: albuterol-ipratropium, 3 mL, Soln-Inh, Inhalation, Once, Stop date 01/05/24 18:03:00 EDT, STAT, Start date 01/05/24 18:03:00 EDT methylPREDNISolone, 125 mg = 2 mL, Injection, IV Push, Once, Stop date 01/05/24 18:03:00 EDT, STAT, Start date 01/05/24 18:03:00 EDT, 01/05/24 18:03:00 EDT B-Type Natriuretic Peptide Basic Metabolic Panel Blood Culture Charcoal Blood Culture Charcoal CBC w/ Auto Diff Continuous Pulse Oximetry ED Cardiac Monitoring eGFR Oxygen Therapy PT & PTT Rapid COVID Antigen [place] Saline Lock Insert Troponin 0 Hr. Troponin 3 Hr. Troponin 6 Hr. Troponin 9 Hr. UA with Cult Rflx XR Chest Single View Addendum by Gogo Najera DO on January 05, 2024 21:10:51 EDT Patient signed out to me pending laboratory evaluation. On reevaluation patient feels significant improvement of his symptoms after the breathing treatment, 3-hour troponin is negative. I believe the patient's symptoms are likely related to COPD exacerbation. Discussed these findings with the patient and visitor they are comfortable with discharge home. Patient started on prednisone in addition is given prescription for albuterol nebulizers as he is almost out of them. He is given referral to pulmonology for further evaluation and management. He is to return to the ED for any new or worsening symptoms. Future Appointments Appointment Date:07/10/2024 11:30:00 AM Scheduled Provider:Lorenzo STILL MD Location:[facility] Appointment Type:URO Office Visit Diagnostic Tests Pending * Blood Culture Charcoal 01/05/24 * Blood Culture Charcoal 01/05/24 Future Scheduled Tests Laboratory* PSA Total 07/05/23 [facility]03-11-2024 Hospital Discharge instructions Patient Education 12/27/2023 12:57:34 Cancer Screening for Men Cancer Screening for Men A cancer screening is a test or exam that checks for cancer. Your health care provider will recommend specific cancer screenings based on your age, medical history (including risk factors), and family history of cancer. Work with your health care provider to create a cancer screening schedule that protects your health. Who should have screening? All men should be considered for screening of certain cancers, including colorectal cancer, prostate cancer, lung cancer, and skin cancer. Your health care provider may recommend screenings for othertypes of cancer if: You had cancer before. You have a family member with cancer. You have abnormal genes that could increase the risk of cancer. You have risk factors for certain cancers, such as current or past use of tobacco products, or being overweight. When you should be screened for cancer depends on: Your age. Your medical history and your family's medical history. Certain lifestyle factors, such as smoking or other use of tobacco products. Environmental exposure, such as to asbestos. How is screening done? Colorectal cancer All adults should have screenings starting at age 45 and continuing until age 75. Your health care provider may recommend screening before age 45. You will have tests every 1 10 years, depending on your results and the type of screening test. People at increased risk should start screening at an earlier age. Talk with your health care provider about which screening test is right for you and how often you should be screened. Colorectal cancer screening looks for cancer or for growths called polyps that often form before cancer starts. Tests to look for cancer or polyps include: Colonoscopy or flexible sigmoidoscopy. For these procedures, a flexible tube with a small camera isinserted into the rectum. CT colonography. This test uses X-rays and a contrast dye to check the colon for polyps. If a polypis found, you may need to have a colonoscopy so the polyp can be located and removed. Tests to look for cancer in the stool (feces) include: Guaiac-based fecal occult blood test (FOBT). This test can find blood in stool. It can be done at home with a kit. Fecal immunochemical test (FIT). This test can find blood in stool. For this test, you will need tocollect stool samples at home. Stool DNA test. This test looks for blood in stool and any changes in DNA that can lead to colon cancer. For this test, you will need to collect a stool sample at home and send it to a lab. Prostate cancer Prostate cancer screening for men with average risk may start at age 50. Men with risk factors may need to be screened earlier, at ages 40 45. Talk with your health care provider about whether screening is right for you and, if so, how often you should be screened. Prostate cancer screening is done with blood tests and a digital rectal exam. During this exam, a health care provider uses a gloved finger to check prostate size. You may need to be screened for prostate cancer if: You have risk factors for prostate cancer, such as being or having a close family member with prostate cancer. You have had gene changes or a genetic condition that was passed on to you from a parent (inherited). These gene changes or genetic conditions include BRCA1 or BRCA2 gene mutations or Mcgee syndrome. You have symptoms of prostate cancer, such as problems urinating or problems getting or keeping an erection (erectile dysfunction). When you have been screened for prostate cancer, future screening may be recommended based on the results of your blood tests. Lung cancer Lung cancer screening is done with a CT scan that looks for abnormal changes in the lungs. Discuss lung cancer screening with your health care provider if you are 50 80 years old and if any of the following apply to you: You currently smoke. You used to smoke heavily. You have a smoking history of 1 pack of cigarettes a day for 20 years or 2 packs a day for 10 years. You have quit smoking within the past 15 years. You may need to be screened every year if you smoke heavily or if you used to smoke. Skin cancer Skin cancer screening is done by checking the skin for unusual moles or spots and any changes in existing moles. Your health care provider should check your skin for signs of skin cancer at every physical exam. You should check your skin every month and tell your health care provider right away if anything looks unusual. Men with a khgmzi-urmh-ycxckt risk for skin cancer may want to see a customer engagement specialist (station attendant) for an annual body check. What are the benefits of screening? Cancer screening is done to look for cancer in the very early stages, before it spreads and becomesharder to treat and before you would start to notice symptoms. Finding cancer early improves the chances of successful treatment. It may save your life. Where to find more information [place] [employer]: www.cancer.org Centers for Disease Control and Prevention: www.cdc.gov National Cancer [place]: www.cancer.gov Contact a health care provider if: You have concerns about any signs or symptoms of cancer. These may include: Skin problems. You may have: ?Moles of an unusual shape or color. ?Changes in existing moles. ?A sore on your skin that does not heal. Tiredness (fatigue) that does not go away. Losing weight without trying. Blood in your urine or stool. Problems with urination. You may have: ?Changes in urination habits. ?Painful urination. Painful ejaculation. Problems with coughing or breathing. These may include: ?Coughing or trouble breathing that does not go away. ?Coughing up blood. Frequent pain or cramping in your abdomen. Summary Your health care provider will recommend specific cancer screenings based on your age, medical history, and family history of cancer. Work with your health care provider to create a cancer screening schedule that protects your health. Finding cancer early improves the chances of successful treatment. It may save your life. Contact a health care provider if you have concerns about any signs or symptoms of cancer. This information is not intended to replace advice given to you by your health care provider. Make sure you discuss any questions you have with your health care provider. Document Revised: 03/02/2022 Document Reviewed: 08/30/2020 No Paper [employer] Patient Education 2022 [employer]. Follow Up Care 07/05/2023 11:48:50 With:TESSY MORE, Lorenzo Azul, URL Address: [facility] [address] , [place] [address] [phone] When: Unknown Comments:6 months w/ PSA and possible Lupron [facility] 09-18-2023 Hospital Discharge instructions Patient Education 07/05/2023 11:45:12 Benign Prostatic Hyperplasia Benign Prostatic Hyperplasia Benign prostatic hyperplasia (BPH) is an enlarged prostate gland that is caused by the normal agingprocess. The prostate may get bigger as a man gets older. The condition is not caused by cancer. The prostate is a walnut-sized gland that is involved in the production of semen. It is located in front of the rectum and below the bladder. The bladder stores urine. The urethra carries stored urine ou t of the body. An enlarged prostate can press on the urethra. This can make it harder to pass urine. The buildup of urine in the bladder can cause infection. Back pressure and infection may progress to bladder damage and kidney (renal) failure. What are the causes? This condition is part of the normal aging process. However, not all men develop problems from thiscondition. If the prostate enlarges away from the urethra, urine flow will not be blocked. If it enlarges toward the urethra and compresses it, there will be problems passing urine. What increases the risk? This condition is more likely to develop in men older than 50 years. What are the signs or symptoms? Symptoms of this condition include: Getting up often during the night to urinate. Needing to urinate frequently during the day. Difficulty starting urine flow. Decrease in size and strength of your urine stream. Leaking (dribbling) after urinating. Inability to pass urine. This needs immediate treatment. Inability to completely empty your bladder. Pain when you pass urine. This is more common if there is also an infection. Urinary tract infection (UTI). How is this diagnosed? This condition is diagnosed based on your medical history, a physical exam, and your symptoms. Tests will also be done, such as: A post-void bladder scan. This measures any amount of urine that may remain in your bladder after you finish urinating. A digital rectal exam. In a rectal exam, your health care provider checks your prostate by putting a lubricated, gloved finger into your rectum to feel the back of your prostate gland. This exam detects the size of your gland and any abnormal lumps or growths. An exam of your urine (urinalysis). A prostate specific antigen (PSA) screening. This is a blood test used to screen for prostate cancer. An ultrasound. This test uses sound waves to electronically produce a picture of your prostate gland. Your health care provider may refer you to a specialist in kidney and prostate diseases (urologist). How is this treated? Once symptoms begin, your health care provider will monitor your condition (active surveillance or watchful waiting). Treatment for this condition will depend on the severity of your condition. Treatment may include: Observation and yearly exams. This may be the only treatment needed if your condition and symptoms are mild. Medicines to relieve your symptoms, including: ?Medicines to shrink the prostate. ?Medicines to relax the muscle of the prostate. Surgery in severe cases. Surgery may include: ?Prostatectomy. In this procedure, the prostate tissue is removed completely through an open incision or with a laparoscope or robotics. ?Transurethral resection of the prostate (TURP). In this procedure, a tool is inserted through the opening at the tip of the penis (urethra). It is used to cut away tissue of the inner core of the prostate. The pieces are removed through the same opening of the penis. This removes the blockage. ?Transurethral incision (TUIP). In this procedure, small cuts are made in the prostate. This lessens the prostate's pressure on the urethra. ?Transurethral microwave thermotherapy (TUMT). This procedure uses microwaves to create heat. The heat destroys and removes a small amount of prostate tissue. ?Transurethral needle ablation (TUNA). This procedure uses radio frequencies to destroy and remove a small amount of prostate tissue. ?Interstitial laser coagulation (ILC). This procedure uses a laser to destroy and remove a small amount of prostate tissue. ?Transurethral electrovaporization (TUVP). This procedure uses electrodes to destroy and remove a small amount of prostate tissue. ?Prostatic urethral lift. This procedure inserts an implant to push the lobes of the prostate away from the urethra. Follow these instructions at home: Take weca-fmb-uhevtvq and prescription medicines only as told by your health care provider. Monitor your symptoms for any changes. Contact your health care provider with any changes. Avoid drinking large amounts of liquid before going to bed or out in public. Avoid or reduce how much caffeine or alcohol you drink. Give yourself time when you urinate. Keep all follow-up visits. This is important. Contact a health care provider if: You have unexplained back pain. Your symptoms do not get better with treatment. You develop side effects from the medicine you are taking. Your urine becomes very dark or has a bad smell. Your lower abdomen becomes distended and you have trouble passing urine. Get help right away if: You have a fever or chills. You suddenly cannot urinate. You feel light-headed or very dizzy, or you faint. There are large amounts of blood or clots in your urine. Your urinary problems become hard to manage. You develop moderate to severe low back or flank pain. The flank is the side of your body between the ribs and the hip. These symptoms may be an emergency. Get help right away. Call 911. Do not wait to see if the symptoms will go away. Do not drive yourself to the hospital. Summary Benign prostatic hyperplasia (BPH) is an enlarged prostate that is caused by the normal aging process. It is not caused by cancer. An enlarged prostate can press on the urethra. This can make it hard to pass urine. This condition is more likely to develop in men older than 50 years. Get help right away if you suddenly cannot urinate. This information is not intended to replace advice given to you by your health care provider. Make sure you discuss any questions you have with your health care provider. Document Revised: 04/22/2022 Document Reviewed: 04/22/2022 No Paper [employer] Patient Education 2022 [employer]. Follow Up Care 12/28/2022 13:54:45 With:TESSY MORE, Lorenzo Azul, URL Address: [facility] [address] [place] [address]- [phone] When:Within 6 Month(s) Comments:w/PSA [facility] [place] 03-13-2023 Hospital Discharge instructions Patient Education 12/28/2022 08:31:06 Prostate Cancer Prostate Cancer The prostate is a walnut-sized gland that is involved in the production of semen. It is located below a man's bladder, in front of the rectum. Prostate cancer is the abnormal growth of cells in the prostate gland. What are the causes? The exact cause of this condition is not known. What increases the risk? This condition is more likely to develop in men who: Are older than age 65. Are -[place]. Are obese. Have a family history of prostate cancer. Have a family history of breast cancer. What are the signs or symptoms? Symptoms of this condition include: A need to urinate often. Weak or interrupted flow of urine. Trouble starting or stopping urination. Inability to urinate. Pain or burning during urination. Painful ejaculation. Blood in urine or semen. Persistent pain or discomfort in the lower back, lower abdomen, hips, or upper thighs. Trouble getting an erection. Trouble emptying the bladder all the way. How is this diagnosed? This condition can be diagnosed with: A digital rectal exam. For this exam, a health care provider inserts a gloved finger into the rectum to feel the prostate gland. A blood test called a prostate-specific antigen (PSA) test. An imaging test called transrectal ultrasonography. A procedure in which a sample of tissue is taken from the prostate and examined under a microscope (prostate biopsy). Once the condition is diagnosed, tests will be done to determine how far the cancer has spread. This is called staging the cancer. Staging may involve imaging tests, such as: A bone scan. A CT scan. A PET scan. An MRI. The stages of prostate cancer are as follows: Stage I. At this stage, the cancer is found in the prostate only. The cancer is not visible on imaging tests and it is usually found by accident, such as during a prostate surgery. Stage II. At this stage, the cancer is more advanced than it is in stage I, but the cancer has not spread outside the prostate. Stage III. At this stage, the cancer has spread beyond the outer layer of the prostate to nearby tissues. The cancer may be found in the seminal vesicles, which are near the bladder and the prostate. Stage IV. At this stage, the cancer has spread other parts of the body, such as the lymph nodes, bones, bladder, rectum, liver, or lungs. How is this treated? Treatment for this condition depends on several factors, including the stage of the cancer, your age, personal preferences, and your overall health. Talk with your health care provider about treatment options that are recommended for you. Common treatments include: Observation for early stage prostate cancer (active surveillance). This involves having exams, blood tests, and in some cases, more biopsies. For some men, this is the only treatment needed. Surgery. Types of surgeries include: ?Open surgery. In this surgery, a larger incision is made to remove the prostate. ?A laparoscopic prostatectomy. This is a surgery to remove the prostate and lymph nodes through several, small incisions. It is often referred to as a minimally invasive surgery. ?A robotic prostatectomy. This is a surgery to remove the prostate and lymph nodes with the help ofa robotic arm that is controlled by a computer. ?Orchiectomy. This is a surgery to remove the testicles. ?Cryosurgery. This is a surgery to freeze and destroy cancer cells. Radiation treatment. Types of radiation treatment include: ?External beam radiation. This type aims beams of radiation from outside the body at the prostate to destroy cancerous cells. ?Brachytherapy. This type uses radioactive needles, seeds, wires, or tubes that are implanted into the prostate gland. Like external beam radiation, brachytherapy destroys cancerous cells. An advantage is that this type of radiation limits the damage to surrounding tissue and has fewer side effects. High-intensity, focused ultrasonography. This treatment destroys cancer cells by delivering high-energy ultrasound waves to the cancerous cells. Chemotherapy medicines. This treatment kills cancer cells or stops them from multiplying. Hormone treatment. This treatment involves taking medicines that act on one of the male hormones (testosterone): ?By stopping your body from producing testosterone. ?By blocking testosterone from reaching cancer cells. Follow these instructions at home: Take bcxq-zvn-stxjjry and prescription medicines only as told by your health care provider. Maintain a healthy diet. Get plenty of sleep. Consider joining a support group for men who have prostate cancer. Meeting with a support group mayhelp you learn to cope with the stress of having cancer. Keep all follow-up visits as told by your health care provider. This is important. If you have to go to the hospital, notify your cancer specialist (oncologist). Treatment for prostate cancer may affect sexual function. Continue to have intimate moments with your partner. This may include touching, holding, hugging, and caressing. Contact a health care provider if: You have trouble urinating. You have blood in your urine. You have pain in your hips, back, or chest. Get help right away if: You have weakness or numbness in your legs. You cannot control urination or your bowel movements (incontinence). You have trouble breathing. You have sudden chest pain. You have chills or a fever. Summary The prostate is a walnut-sized gland that is involved in the production of semen. It is located below a man's bladder, in front of the rectum. Prostate cancer is the abnormal growth of cells in the prostate gland. Treatment for this condition depends on several factors, including the stage of the cancer, your age, personal preferences, and your overall health. Talk with your health care provider about treatment options that are recommended for you. Consider joining a support group for men who have prostate cancer. Meeting with a support group mayhelp you learn to cope with the stress of having cancer. This information is not intended to replace advice given to you by your health care provider. Make sure you discuss any questions you have with your health care provider. Document Released: 10/04/2006 Document Revised: 09/16/2018 Document Reviewed: 06/14/2017 No Paper [employer] Patient Education 2020 [employer]. Follow Up Care 07/31/2022 10:51:30 With:TESSY MORE, Lorenzo Azul, URL Address: [facility] [address] , [place] [address]- When: Unknown [facility] 01-08-2023 NoteSend Summary: Discharge Summary Providers: Provider RoleProvider Name AttendingFeng Winston ReferringMarkerStacy Maria PrimaryJudah Ledesma Note Recipients: Judah Ledesma MD - [id number] [] Marker, Stacy Cornejo MD - [id number] [] Discharge: Summary: Admission Date: .22-Oct-2022 04:30:00 Discharge Date: 25-Oct-2022 Attending Physician at Discharge: Feng Winston Admission Reason: chest pain Final Discharge Diagnoses: Chest pain Procedures: Left heart catheterization Condition at Discharge: Satisfactory Disposition at Discharge: .Home Vital Signs: T PRBPMAPSpO2 [id number]% Date/Time10/25 7: 7: 15:1618 7: 7: 7:48 Range(36.1C - 36.5C ) (63 - 67 ) (18 - 18 ) (145 - 165 )/ (65 - 80 ) (94 - 109 ) (93% - 96% ) As of 25-Oct-2022 07:48:00, patient is on 2 L/min of oxygen via nasal cannula. Date: Weight/Scale Type:Height: 22-Oct-2022 04:4174.8 kg / swb420.1 cm Physical Exam: A&O x3 PERRL EOMI, hard of hearing Lungs CTA Heart RRR Abd soft NT Ext no leg edema Neuro no focal deficit Hospital Course: TAN LASSITER is a 71 year old Male, legally deaf, from home with a PMH of chronic respiratory failure on home Oxygen as needed, HLD, prostate cancer, who presented with sudden onset chest pain, left sided chest radiating to his left arm and back, 4-/10 in severity, associated with headache, nausea, diaphoresis, and SOB. He also reports fever, chills for the past few days. He has had 3 episodes of SOB which he had to use his home oxygen more frequent. He denies abdominal pain, vomiting, cough, urinary symptoms, tingling, numbness, diarrhea, constipation. for the past 2 weeks he has had peripheral vascular disease with new onset redness and rashes on his feet. The patient underwent left heart catheterization which showed minimal coronary stenosis. The patient was started on metoprolol. He will follow-up with cardiology as outpatient as well as his primary care physician. He was discharged home in stable condition Discharge Information: and Continuing Care: Lab Results - Pending: Culture, Blood Drawn at 22-Oct-2022 06:37:00 Culture, Blood Drawn at 22-Oct-2022 06:37:00 Radiology Results - Pending: Ultrasound Ankle/Arm Ratio at 24-Oct-2022 11:27:00 Discharge Instructions: . Follow Up Appointments: Follow-Up Appointment 02: Physician/Dept/Service: 30-day event monitor Reason for Referral: Monitor heart rhythm Call to Schedule in: Please call the office on Wednesday to schedule these appointments Location: [facility] in [place] Follow-Up Appointment 03: Physician/Dept/Service: Dr. Everett- Ethnoarchaeologist Reason for Referral: discuss report of event monitor Location: [facility] in [place] Discharge Medications: Home Medication Trelegy Ellipta 200 mcg-62.5 mcg-25 mcg/inh inhalation powder - 1 puff(s) inhaled once a day folic acid - orally once a day losartan 50 mg oral tablet - 1 tab(s) orally once a day atorvastatin 10 mg oral tablet - 1 tab(s) orally once a day methotrexate 2.5 mg oral tablet - 3 tab(s) orally once a week alfuzosin 10 mg oral tablet, extended release - 1 tab(s) orally once a day oxybutynin 5 mg oral tablet - 1 tab(s) orally once a day bicalutamide 50 mg oral tablet - 1 tab(s) orally every 24 hours metoprolol tartrate 50 mg oral tablet - 1 tab(s) orally 2 times a day magnesium oxide 400 mg oral tablet - 1 tab(s) orally once a day predniSONE 20 mg oral tablet - 2 tab(s) orally every 12 hours PRN Medication DNR Status: Code StatusCode Status order at time of discharge: Full Code Electronic Signatures: Feng Winston) (Signed 25-Oct-2022 10:45) Authored: Send Summary, Summary Content, Ongoing Care, DNR Status, Note Completion Last Updated: 25-Oct-2022 10:45 by Feng Winston)[facility] 2022 Hospital Discharge instructions* Follow Up Appointment 2:Physician/Dept/Service: 30-day event monitorReason for Referral: Monitor mariya rt rhythmLocation: [facility] Number: [phone] * Follow Up Appointment 3:Physician/Dept/Service: Dr. Everett- CardiologistReason for Referral: discuss report of event monitorLocation: [facility] in [facility]01-05-2023 NoteHistory & Physical Reviewed: I have reviewed the History and Physical dated: 21-Oct-2022 History and Physical reviewed and relevant findings noted. Patient examined to review pertinent physical findings.: No significant changes Home Medications Reviewed: no changes noted Allergies Reviewed: no changes noted Airway/Sedation Assessment: Mouth Opening OKyes Neck Flexibility OKyes Loose Teethno Oropharyngeal ClassificationClass I ASA PS ClassificationASA III Sedation Planmoderate sedation ERAS (Enhanced Recovery After Surgery): ERAS Patient: no Consent: COVID-19 Consent: COVID-19 Risk ConsentSurgeon has reviewed sam risks related to the risk of severino COVID-19 and if they contract COVID-19 what the risks are. Electronic Signatures: Arya Pineda) (Signed 22-Oct-2022 11:21) Authored: History & Physical Reviewed, Airway/Sedation, ERAS, Consent, Note Completion Last Updated: 22-Oct-2022 11:21 by Arya Pineda)[facility]01-05-2023 NoteHistory of Present Illness: HPI: TAN LASSITER is a 71 year old Male, legally deaf, from home with a PMH of chronic respiratory failure on home Oxygen as needed, HLD, prostate cancer, who presented with sudden onset chest pain, left sided chest radiating to his left arm and back, 4-/10 in severity, associated with headache, nausea, diaphoresis, and SOB. He also reports fever, chills for the past few days. He has had 3 episodes of SOB which he had to use his home oxygen more frequent. He denies abdominal pain, vomiting, cough, urinary symptoms, tingling, numbness, diarrhea, constipation. for the past 2 weeks he has had peripheral vascular disease with new onset redness and rashes on his feet. He lives alone, ambulates independently Social: none PSH: Rt cochlear implant FH: non contributory Allergy: PCN Home meds: needs to be verified by his pharmacy and family as he can not provide any info Pt is legally deaf and I had a hard time to provide detailed history 10 points ROS was negative except as mentioned in HPI Was admitted for the management of NSTEMI Pt was transferred from [facility] for NSTEMI and new onset Afib Per the ER doctor in that hospital, his first trop was negative however the second was elevated EKG showed Afib too Social History: Social History: Smoking Statusnever smoker (1) Alcohol Usedenies(1) Drug Usedenies (1) Drug 2 Usedenies (1) Allergies: penicillin: Rash Medications Prior to Admission: The patient does not take any medications at home. Objective: Objective Information: Weights 10/22 4:41: Weight in kg (Weight (kg)) 74.8 10/22 4:41: Weight in lbs ((lbs)) 164.9 10/22 4:41: BMI (kg/m2) (BMI (kg/m2)) 23.06 Physical Exam Narrative: Physical Exam: General: well developed male, in NAD HEENT: AT, NC, no JVD, no LAP, neck supple Lungs: clear, no wheezing Cardiac: NSR, no murmur Abdomen: soft, non tender, no distension, +BS Ext: no edema, no deformity, erythema on the b/l feet and around the heels, diminished pulses in LEs Neurological: AAOx3, sensation intact, no hearing Medications: Medications: Continuous Medications No continuous medications are active Scheduled Medications 1. Aspirin Chewable: 81 mg Oral Daily 2. Atorvastatin: 40 mg Oral Daily 3. Enoxaparin SubCutaneous: 40 mg SubCutaneous Every 24 Hours 4. Metoprolol Tartrate: 50 mg Oral 2 Times a Day PRN Medications 1. Nitroglycerin SubLingual: 0.4 mg SubLingual Every 5 Minutes 2. Sodium Chloride 0.9% Injectable Flush: 10 mL IntraVenous Flush Every 8 Hours and as Needed Conditional Medication Orders 1. Perflutren Lipid Microsphere (Activated) 1.3 mL / NaCL 0.9% T.V. 10 mL Injectable: 0.5 mL IntraVenous Push Once Assessment and Plan: Assessment: TAN LASSITER is a 71 year old Male, legally deaf, from home with a PMH of chronic respiratory failure on home Oxygen as needed, HLD, prostate cancer, and sensorineural hearing loss who was admitted for the management of NSTEMI and new onset Afib #chest pain 2/2 NSTEMI #Initial EKG was Afib, repeat was NSR repeat EKG was NSR, prolonged QT interval In [facility] trop was elevated CHADS-VASc score 1 - patient monitor - EKG, CXR - Trop, BNP, CBC, CMP, Mg, phos - Lipid panel, Hgb A1C, TSH - ASA, Lipitor, NTG, Lopressor, Morphine - Oxygen as needed - will consider heparin drip based on the trop level - on subQ Lovenox for now - cardio consult - echo - will consider EP consult based on EKG findings - avoid meds that cause QT prolongation #leukocytosis 15.3, might be reactive afebrile, no urinary symptoms - CXR, UA - Blood cultures - empiric Rocephin #peripheral vascular disease - podiatry consult for new onset erythema on feet #HLD - Lipitor #sensorineural hearing loss - s/p cochlear implant #prostate cancer - stable, will monitor DVT ppx Lovenox Disposition: PT/OT eval SW DC planning Electronic Signatures: Naldo Castillo) (Signed 22-Oct-2022 06:13) Authored: History of Present Illness, Comorbidities, Social History, Allergies, Medications Prior to Admission, Objective, Assessment and Plan, Note Completion Last Updated: 22-Oct-2022 06:13 by Naldo Castillo) References: 1. Data Referenced From Patient Profile - Adult v2 22-Oct-2022 04:41[facility]07-11-2022 Hospital Discharge instructions Patient Education 04/27/2022 12:17:44 Prostate Cancer Prostate Cancer The prostate is a walnut-sized gland that is involved in the production of semen. It is located below a man's bladder, in front of the rectum. Prostate cancer is the abnormal growth of cells in the prostate gland. What are the causes? The exact cause of this condition is not known. What increases the risk? This condition is more likely to develop in men who: Are older than age 65. Are -Tristanian. Are obese. Have a family history of prostate cancer. Have a family history of breast cancer. What are the signs or symptoms? Symptoms of this condition include: A need to urinate often. Weak or interrupted flow of urine. Trouble starting or stopping urination. Inability to urinate. Pain or burning during urination. Painful ejaculation. Blood in urine or semen. Persistent pain or discomfort in the lower back, lower abdomen, hips, or upper thighs. Trouble getting an erection. Trouble emptying the bladder all the way. How is this diagnosed? This condition can be diagnosed with: A digital rectal exam. For this exam, a health care provider inserts a gloved finger into the rectum to feel the prostate gland. A blood test called a prostate-specific antigen (PSA) test. An imaging test called transrectal ultrasonography. A procedure in which a sample of tissue is taken from the prostate and examined under a microscope (prostate biopsy). Once the condition is diagnosed, tests will be done to determine how far the cancer has spread. This is called staging the cancer. Staging may involve imaging tests, such as: A bone scan. A CT scan. A PET scan. An MRI. The stages of prostate cancer are as follows: Stage I. At this stage, the cancer is found in the prostate only. The cancer is not visible on imaging tests and it is usually found by accident, such as during a prostate surgery. Stage II. At this stage, the cancer is more advanced than it is in stage I, but the cancer has not spread outside the prostate. Stage III. At this stage, the cancer has spread beyond the outer layer of the prostate to nearby tissues. The cancer may be found in the seminal vesicles, which are near the bladder and the prostate. Stage IV. At this stage, the cancer has spread other parts of the body, such as the lymph nodes, bones, bladder, rectum, liver, or lungs. How is this treated? Treatment for this condition depends on several factors, including the stage of the cancer, your age, personal preferences, and your overall health. Talk with your health care provider about treatment options that are recommended for you. Common treatments include: Observation for early stage prostate cancer (active surveillance). This involves having exams, blood tests, and in some cases, more biopsies. For some men, this is the only treatment needed. Surgery. Types of surgeries include: ?Open surgery. In this surgery, a larger incision is made to remove the prostate. ?A laparoscopic prostatectomy. This is a surgery to remove the prostate and lymph nodes through several, small incisions. It is often referred to as a minimally invasive surgery. ?A robotic prostatectomy. This is a surgery to remove the prostate and lymph nodes with the help ofa robotic arm that is controlled by a computer. ?Orchiectomy. This is a surgery to remove the testicles. ?Cryosurgery. This is a surgery to freeze and destroy cancer cells. Radiation treatment. Types of radiation treatment include: ?External beam radiation. This type aims beams of radiation from outside the body at the prostate to destroy cancerous cells. ?Brachytherapy. This type uses radioactive needles, seeds, wires, or tubes that are implanted into the prostate gland. Like external beam radiation, brachytherapy destroys cancerous cells. An advantage is that this type of radiation limits the damage to surrounding tissue and has fewer side effects. High-intensity, focused ultrasonography. This treatment destroys cancer cells by delivering high-energy ultrasound waves to the cancerous cells. Chemotherapy medicines. This treatment kills cancer cells or stops them from multiplying. Hormone treatment. This treatment involves taking medicines that act on one of the male hormones (testosterone): ?By stopping your body from producing testosterone. ?By blocking testosterone from reaching cancer cells. Follow these instructions at home: Take [id number] and prescription medicines only as told by your health care provider. Maintain a healthy diet. Get plenty of sleep. Consider joining a support group for men who have prostate cancer. Meeting with a support group mayhelp you learn to cope with the stress of having cancer. Keep all follow-up visits as told by your health care provider. This is important. If you have to go to the hospital, notify your cancer specialist (oncologist). Treatment for prostate cancer may affect sexual function. Continue to have intimate moments with your partner. This may include touching, holding, hugging, and caressing. Contact a health care provider if: You have trouble urinating. You have blood in your urine. You have pain in your hips, back, or chest. Get help right away if: You have weakness or numbness in your legs. You cannot control urination or your bowel movements (incontinence). You have trouble breathing. You have sudden chest pain. You have chills or a fever. Summary The prostate is a walnut-sized gland that is involved in the production of semen. It is located below a man's bladder, in front of the rectum. Prostate cancer is the abnormal growth of cells in the prostate gland. Treatment for this condition depends on several factors, including the stage of the cancer, your age, personal preferences, and your overall health. Talk with your health care provider about treatment options that are recommended for you. Consider joining a support group for men who have prostate cancer. Meeting with a support group mayhelp you learn to cope with the stress of having cancer. This information is not intended to replace advice given to you by your health care provider. Make sure you discuss any questions you have with your health care provider. Document Released: 10/04/2006 Document Revised: 09/16/2018 Document Reviewed: 06/14/2017 No Paper [employer] Patient Education 2020 [employer]. Follow Up Care 10/27/2021 14:18:56 With:TESSY MORE, Lorenzo Azul, URL Address: [facility] [address] , [place] [address] [phone] When:Within 3 Month(s) Comments:f/u PSA in 3 months [facility] conslcd note Author [facility] July 09, 2023 2:06pm Note Date/Time July 09, 2023 2:07pm [facility] [address] [place] [id number] Plastic Surgery Consult Note Signed Patient: Farhan Lassiter MR#: [id number] : 1950 Acct:[id number] Age/Sex: 72 / M Adm Date: 3 Loc: ER Room: Type: [facility] ER Attending Dr: Copies to: MD Abrahan Joel MD~ HPI Consult Narrative Date of Consultation: 07/09/23 History of Present Illness: Mr. Lassiter is a 72 year old male status post dog bite to his lip and neck. 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 Denies any other injuries. Review of Systems Review of Systems All other systems reviewed & are negative unless noted below or in HPI [facility] Medical History (Updated 07/09/23 @ 14:03 by Rodney Julio MD) Hypertension Social History Smoking Status: Never smoker Substance Use Type: None Meds Medications and Allergies Allergies Penicillins Allergy (Verified 07/09/23 13:01) Anaphylaxis prednisone Allergy (Verified 07/09/23 13:01) Difficulty Breathing Home Medications atorvastatin 10 mg tablet 10 mg PO DAILY 07/09/23 [History Confirmed 07/09/23] bicalutamide 50 mg tablet 50 mg PO DAILY 07/09/23 [History Confirmed 07/09/23] lisinopril 5 mg tablet 5 mg PO DAILY 07/09/23 [History Confirmed 07/09/23] methotrexate sodium 2.5 mg tablet 10 mg PO Q7D 07/09/23 [History Confirmed 07/09/23] Exam Physical Exam Vital Signs: Temp Pulse Resp BP Pulse Ox O2 Del Method 97.7 F 73 20 191/92 H 98 Room Air 07/09/23 12:38 07/09/23 12:38 07/09/23 12:38 07/09/23 12:38 07/09/23 12:38 07/09/23 12:38 Narrative: GENERAL: comfortable, looks well, no acute distress HEENT: Normocephalic. Cranial nerves grossly intact. NECK: supple LUNGS: Non-labored respirations. ABDOMEN: soft, nontender, nondistended NEUROLOGIC EXAM: no focal abnormalties SKIN: Warm and dry. EXTREMITIES: normal ROM PSYCH: Alert and oriented Large defect of the lower lip. There is a avulsed piece of lower lip tissue hansel specimen container. There is a laceration to his left neck that is superficial and no defect of the platysma. The neck laceration measures approximately 5 cm. The lip laceration measures through and through approximately 6 cm. There is an intraoral laceration that extends along the buccal sulcus where the lip is avulsed from the buccal sulcus. This measures approximately 7 cm. Assessment/Plan (1) Dog bite: Code(s): W54.0XXA - Bitten by dog, initial encounter Status: Acute (2) Lip laceration: Code(s): S01.511A - Laceration without foreign body of lip, initial encounter Status: Acute Plan This will need to be repaired. The area was irrigated with Betadine and saline solution. The area was anesthetized with 1% lidocaine with 1: 100,000 epinephrine. Prior to injection of the epinephrine the vermilion border and thewet dry border were marked. A 4-0 PDS suture was used to reapproximate the orbicularis muscle. The labial artery was identified and tied off. The nonviable tissues were debrided with forceps and scissors. The skin was approximated with 5-0 nylon sutures. The mucosa was avulsed from the buccal sulcus. This was repaired with 4-0 chromic sutures. The mucosa was repaired with 4-0 chromic sutures. The neck had large pieces of nonviable tissue that were avulsed. These were removed with forceps and scissors. The skin of the neck was approximated with 5-0 nylon sutures. Total length of the complex repair of the neck was approximately 5 cm. Total length of complex repair of the lower lip was approximately 13 cm. Patient tolerated procedure well. Plan for return to the office in 1 week for suture removal. Bacitracin to the wounds. Documented By: Rodney Julio MD 07/09/23 14 01 Signed By: <Electronically signed by MD Rodney Julio> 07/09/23 1406 [facility] Work Phone: Evaluation + Plan note Future Appointments Appointment Date:07/31/2022 09:45:00 AM Scheduled Provider:Lorenzo STILL MD Location:[facility] Appointment Type:URO Office Visit Diagnostic Tests Pending * PSA Total 04/27/22 [facility] evaluation + Plan note Future Appointments Appointment Date:12/28/2022 01:30:00 PM Scheduled Provider:Lorenzo STILL MD Location:[facility] Appointment Type:URO Office Visit [facility] evaluation + Plan note Future Appointments Appointment Date:07/02/2023 11:00:00 AM Scheduled Provider:Lorenzo STILL MD Location:[facility] Appointment Type:URO Office Visit Diagnostic Tests Pending * PSA Total 12/28/22 [facility] evaluation + Plan note Future Appointments Appointment Date:12/27/2023 11:30:00 AM Scheduled Provider:Lorenzo STILL MD Location:[facility] Appointment Type:URO Office Visit Future Scheduled Tests Laboratory* PSA Total 07/05/23 [facility] evaluation + Plan note Future Appointments Appointment Date:07/10/2024 11:30:00 AM Scheduled Provider:Lorenzo STILL MD Location:[facility] Appointment Type:URO Office Visit Diagnostic Tests Pending * PSA Total 12/27/23 Future Scheduled Tests Laboratory* PSA Total 07/05/23 [facility] evaluation + Plan note Future Appointments Appointment Date:07/10/2024 11:30:00 AM Scheduled Provider:Lorenzo STILL MD Location:[facility] Appointment Type:URO Office Visit Future Scheduled Tests Laboratory* PSA [facility] Appointment Date:01/27/2024 12:30:00 PM Scheduled [facility]: [facility] Type:PUL Pulmonary Function Test (FT) Appointment Date:01/27/2024 01:30:00 PM Scheduled Provider: Location[facility] Appointment Type:PUL Six Minute Walk Test (FT) Appointment Date:02/14/2024 09:45:00 AM Scheduled Provider:Lm Posada MD Location[facility] Appointment Type:Pulmonary Follow Up (FT) Appointment Date:07/10/2024 11:30:00 AM Scheduled Provider:Lorenzo STILL MD Location:[facility] Appointment Type:URO Office Visit Future Scheduled Tests Laboratory* PSA Total 07[facility]05[facility]23 [facility] App[facility]ments Appointment Date:02/14/2024 09:45:00 AM Scheduled Provider:Lm Posada MD Location[facility] Appointment Type:Pulmonary Follow Up (FT) Appointment Date:07/10/2024 11:30:00 AM Scheduled Provider:Lorenzo STILL MD Location:[facility] Appointment Type:URO Office Visit Future Scheduled Tests Laboratory* PSA Total 07/05/23 [facility] Cardiovascular: Regular, rate and rhythm, no murmurs, normal S 1and S 2Head/Neck: Neck supple, no apparent injury, No JVD, trachea midline, no bruitsENMT: Mucous membranes moistEyes: Pupils equal size, clear scleraSkin: Warm and dry, no rashesConstitutional: Well-developed elderly male in no acute distress who is pleasant and cooperative. Hearing impaired, reads lipsExtremities: No lower extremity edema2+ radial and 1+ PT pulses bilaterallyRight femoral artery site bandage removed and left opento air. No bruit or hematomaMusculoskeletal: ROM intactGenitourinary: DeferredGastrointestinal: Nondistended, soft, non-tender, +bowel soundsBreast: DeferredNeurological: Alert and oriented x3, speech clear, moves all extremities equallyLymphatic: DeferredRespiratory/Thorax: Respirations even and unlabored, breath sounds clear to auscultation posteriorly, anterior breath sounds with mild rhonchi in upper lobesPsychological: Appropriate mood and behavior [facility] noteNo assessment information available [facility] Work Phone: History of Present illness Narrative* Patient is seen by me for the first time. He apparently was briefly hospitalized in [place] and transferred to [facility]. The original reason for this is unclear. Nonetheless in [facility] he was evaluated with coronary angiography and found to have trivial disease and normal function. For unclear reasons he is now here to see me. * He is basically deaf. He has hearing aids but he cannot hear. He states he reads lips and detailed questioning ensued. I specifically asked him about anginal symptoms, heart failure symptoms, and arrhythmia symptomatology. He denies symptoms of pretty much all the way around. He carries a diagnosisof paroxysmal SVT. A 30-day event monitor was performed and it did demonstrate a 6 beat run of SVT but was completely asymptomatic and because of this I am hesitant to recommend adjustments in therapy because of his favorable diagnostic evaluation and findings. * Had a long detailed discussion, to the best of our ability, and it appears that his only complaint and her symptoms of shortness of breath. Advised him more than likely is on the basis of his smokinghistory and COPD and he appears to understand this and I encouraged him to follow-up henceforth with primary care CS only as needed. -[facility] DO Work Phone: Hospital course Narrative No data available for this section [facility] Hospital Discharge instructions No data available for this section [facility] Hospital Discharge instructions Additional Instructions DISCHARGE INSTRUCTIONS FOR PLASTIC/RECONSTRUCTIVE SURGERY YOUR ACTIVITY MAY INCLUDE -Going up and down stairs slowly. -Walking around the house or outside if the weather is satisfactory. -No driving until you are seen in our office and cleared for driving. -No lifting more than 10 pounds for 2 weeks from the date of surgery. WOUND CARE -NO smoking as it may compromise your wound healing. -Cup and spoon diet. No straws. Continue this for 2 weeks. -Do not place lower dentures for 2 weeks. - -Sutures will be removed at your post-operative visit. Apply Bacitracin to area 3 times a day. -Keep your incision dry for 48 hours then, you may shower (no tub baths) and allow water to flow over your incision. - -It is common to feel pulling or sharp sticking sensations in the area of the incision. PLEASE NOTIFY OUR OFFICE at [phone] if you: -Develop a fever of 101 degrees Fahrenheit, or higher. -Have increasing pain. -See redness or swelling around the incision. MEDICATION -Medications per Medication Reconciliation List. -Over the counter medications such as Acetaminophen and others may be used as directed for pain unless prescription was provided. Do NOT exceed 4 grams of Acetaminophen in a 24 hour period. -DO NOT use ibuprofen or NSAIDs unless directed by physician, as they may increase risk of bleeding. OTHER INSTRUCTIONS -No smoking as this increases post-operative complication rate. FOLLOW UP -Call the office at [phone] for a follow up appointment 1 week. * AFTER HOURS PHONE NUMBER [phone] *[facility] Work Phone: Progress note No data available for this section [facility] reason for referral (narrative)* Reason for Referral: decline in self care performance [facility] Summary Purpose Family History No Family History Records FoundUnknown Family Member Name Dates Details : Mother, Father Status:Active Family history of leukemia: Mother, Father(V16.6, Z80.6) Status:Active Unknown Family Member Name Dates Details : Mother, Father Status:Active Family history of leukemia: Mother, Father(V16.6, Z80.6) Status:Active Unknown Family Member Name Dates Details : Mother, Father Status:Active Family history of leukemia: Mother, Father(V16.6, Z80.6) Status:Active Unknown Family Member Name Dates Details : Mother, Father Status:Active Family history of leukemia: Mother, Father(V16.6, Z80.6) Status:Active Family history of malignant neoplasm: Mother, Father, Sibling(V16.9, Z80.9) Status:Active Unknown Family Member Name Dates Details : Mother, Father Status:Active Family history of leukemia: Mother, Father(V16.6, Z80.6) Status:Active Family history of malignant neoplasm: Mother, Father, Sibling(V16.9, Z80.9) Status:Active Advance Directives No Advanced Directives Records Found Advance Directive Response Recorded Date/ Time Advance Directives No June 10:05am Chief Complaint NATALIE results. Chief Complaint and Reason for Visit Chief Complaint dog bite to lip Additional Source Comments (unrecognized sect ion and content) No Status Records FoundNo Status Records FoundNo Status Records FoundNo Status Records FoundNo Status Records FoundNo Status Records FoundNo Status Records FoundNo Status Records FoundNo Status Records FoundNo Status Records Found INFORMATION SOURCE (unrecogn ized section and content) DATE CREATED AUTHOR 05/08/2020 [facility] DATE CREATED AUTHOR AUTHOR'S ORGANIZ ATION 10/28/2021 [facility] DATE CREATED AUTHOR AUTHOR'S ORGANIZ ATION 10/28/2022 [facility] DATE CREATED AUTHOR AUTHOR'S ORGANIZ ATION 10/31/2022 [facility] DATE CREATED AUTHOR AUTHOR'S ORGANIZ ATION 12/08/2022 [facility] DATE CREATED AUTHOR AUTHOR'S ORGANIZ ATION 12/15/2022 [facility] DATE CREATED AUTHOR AUTHOR'S ORGANIZ ATION 07/11/2023 [facility] DATE CREATED AUTHOR AUTHOR'S ORGANIZ ATION 10/28/2023 [facility] EPIC DATE CREATED AUTHOR AUTHOR'S ORGANIZ ATION 02/17/2024 [facility] DATE CREATED AUTHOR AUTHOR'S ORGANIZ ATION 02/29/2024 [facility] Care Team (unrecognized sect ion and content) Team Status: Active Member Role Status Dates Abrahan Sands MD Primary Care Provider Active Team Status: Inactive Member Role Status Dates Rodney Julio MD Emergency Provider Active Abrahan Sands MD Primary Care Provider Active <item> Privacy Markings (unrecogniz ed section and content) Section Author: Hellen Chavez PROHIBITION ON REDISCLOSURE OF CONFIDENTIAL INFORMATION This notice accompanies a disclosure of information concerning a client made to you with the consent of such client. Reason for Visit (unrecogniz ed section and content) Event Monitor:TAN is here f or the application of a 30 day event monitor in office., Diagnosis: PSVTOrdering Physician: Dr. Allan sent to: [employer] number [id number] applied.TAN is here for the application of aOrdering Physician:Event Monitor:TAN is here for the application of a 30 day event monitor in office., Diagnosis: PSVTOrdering Physician: Dr. Allan sent to: [employer] number [id number] applied.TAN is here for the application of aOrdering Physician:Event Monitor:TAN is here for the application of a 30 day event monitor in office., Diagnosis: PSVTOrdering Physician: Dr. Allan sent to: [employer] number [id number] applied.TAN is here for the application of aOrdering Physician: Goals (unrecognized section and content) Goals may be documented in a n alternate section FOR RECORDS PERTAINING TO PATIENTS WHO ARE OR HAVE BEEN ENROLLED IN A CHEMICAL DEPENDENCY/SUBSTANCEABUSE PROGRAM, SOME INFORMATION MAY BE OMITTED. This clinical summary was aggregated from multiple sources. Caution should be exercised in using it in the provision of clinical care. This summary normalizes information from multiple sources, and as a consequence, information in this document may materially change the coding, format and clinical context of patient data. In addition, data may be omitted in some cases. CLINICAL DECISIONS SHOULD BE BASED ON THE PRIMARY CLINICAL RECORDS. [facility]. provides no warranty or guarantee of the accuracy or completeness of information in this document.
[2024-03-06] MEDS: ALBUTEROL SULFATE 2.5 MG/3 ML VIAL NEB IH (18:57)
[2024-03-06 18:58] LABS: Glucometer 128 mg/dL (74-106)
[2024-03-06 19:03] LABS: Basophils Percent Auto 0.1 % (0.2-2.0); Eosinophils Percent Auto 0.1 % (0.9-7.0); Hematocrit 42.5 % (42.0-54.0); Immature Granulocytes Abs Auto 0.02 10^3/uL (0.00-0.03); Immature Granulocytes Pct Auto 0.2 % (0.0-0.5); Lymphocytes Absolute Auto 0.8 10^3/uL (1.2-3.8); Lymphocytes Percent Auto 7.5 % (20.5-60.0); Mean Corpuscular HGB Conc 32.9 g/dL (29.9-35.2); Mean Corpuscular Hemoglobin 32.7 pg (25.9-34.0); Mean Corpuscular Volume 99.3 fL (80.0-94.0); Mean Platelet Volume 9.7 fL (9.5-13.5); Monocytes Percent Auto 0.2 % (1.7-12.0); Neutrophils Absolute Auto 10.2 10^3/uL (1.4-6.5); Neutrophils Percent Auto 91.9 % (43.0-75.0); Platelet Count 297 10^3/uL (150-450); Red Blood Count 4.28 10^6/uL (4.70-6.10); Red Cell Distribution Width 14.2 % (11.0-15.0); White Blood Count 11.1 10^3/uL (4.0-11.0)
[2024-03-06] MEDS: ACETAMINOPHEN 650 MG RECTAL SUPPOSITORY PR (19:10)
[2024-03-06 19:21] LABS: Anion Gap 14.4; BUN Creatinine Ratio 14.5; Calcium 9.3 mg/dL (8.5-10.1); Carbon Dioxide 25.8 mmol/L (21.0-32.0); Chloride 102 mmol/L (98-107); Estimated GFR (African America >60 (>=60); Estimated GFR (Non-African Ame >60 (>=60); Glucose 129 mg/dL (74-106); Potassium 4.2 mmol/L (3.5-5.1); Sodium 138 mmol/L (136-145); Troponin I High Sensitivity 10.3 pg/mL (4.0-76.1)
[2024-03-06 19:25] LABS: Lactate/Lactic Acid 3.2 mmol/L (0.4-2.0)
[2024-03-06 19:26] LABS: Influenza Virus A Antigen Negative; Influenza Virus B Antigen Negative; Internal Control Within Normal Limits; SARS-CoV-2 Ag POSITIVE (NEGATIVE)
[2024-03-06] MEDS: 0.9 % SODIUM CHLORIDE 500 ML IV (19:30)
--- NOTE | 2024-03-06 19:36 | PC.NURSE ---
pt more alert and able to answer questions, pt request O2 and this nurse asked if he wears O2 at home. Pt states he is in the process of getting home O2. This nurse places 2L nc on pt and DR bell
[2024-03-06 19:53] LABS: PROCALCITONIN 0.11 ng/mL (0.00-0.50)
[2024-03-06] MEDS: LEVOFLOXACIN IN DEXTROSE 5 % 750 MG/150 ML IV.SOLN 100 MG IV (20:16)
[2024-03-06 22:19] LABS: Lactate/Lactic Acid 3.3 mmol/L (0.4-2.0)
--- NOTE | 2024-03-06 22:20 | PC.NURSE ---
Patient resting in bed, given ice water. He is alert and oriented at this time. He remembers what happened and is able to tell me now. He says that he felt fine when he woke up this morning, he went to [facility] then back home and had a cup of coffee, then went to the gas station. It was while he was on his way to the gas station he began to not feel well. When he got out of the car at the gas station he says he fell out and that is when the woman at the gas station saw him and called the ambulance. He remembers the episode of bowel incontinence and feeling like he could not breathe. Right now he says he just feel awful. Like I was hit by two trucks . Patient asks me to throw his soiled pants, socks and underwear in the garbage. His remaining items- white t-shirt, shoes, belt, finger pulse oximeter and wallet are put in personal belongings bag.
--- OUTSIDE RECORDS SUMMARY | 2024-03-06 23:10 | XMS_ITS | CCD ---
Author Organization [facility] ion [facility] Care Team Providers Care Lubricating Specialist Name Role Phone JUDAH ALEJANDRA Primary Care Physician [phone] Judah Ledesma Unavailable Unavailable Unavailable Judah Ledesma [...] Toney Attending Unavailable Alejandra II, Judah Fowler [facility] Care Unavail able Stacy Akbar Referring Unavailable Palmer, Dr. Goran Jackson Referring Charley vailable Alejandra II, Judah Malcolm [facility] Unavail able Palmer, Dr. Goran Jackson Attending Charley vailable Alejandra [facility] Unavail able McGuinn II, Dr. Jc Ventura Attending Unavailable McGuinn II, Dr. Jc Ventura Referring Unavailable Alejandra II, Judah Fowler [facility] Care Unavail able Piotr, Dr. Loomis Attending Unavailable Piotr, Dr. Loomis Referring Unavailable MD Rodney Julio Emergency Provider [phone] MD Abrahan Sands Primary Care Provider [phone] Abrahan Sands Primary Care Unavailable Rodney Julio Attending Unavailable Rodney Julio Admitting Unavailable ABRAHAN SANDS Attending Unavailable ABRAHAN SANDS Primary Care Physician [phone] DALIATAN Ritter Referring Unavailable DALIATAN Ritter Primary Care Unavailable Lorenzo STILL Attending Unavailable Lorenzo STILL Attending Unavailable KAT SAUCEDO Attending Unavailab le [place], Bashar X Attending Unavailable NONE, XXXX Referring Unavailable [place], Bashar X Admitting Unavailable [place], Bashar X Attending Unavailable Cambridge, Bashar X Referring Unavailable [place], Bashar X Admitting Unavailable KAT SAUCEDO Admitting Unavailab KAT Singh Attending Unavailab Lorenzo Sotelo Admitting Unavailable Lorenzo STILL Attending Unavailable Hajdari, Astrit H Attending Unavailable NONE, XXXX Referring Unavailable [place], Bashar X Attending Unavailable Lorenzo STILL Attending Unavailable Allergies Allergy Classification Reported Allergen(s) Allergy Type Date of Onset Reaction(s) Facility (13 sources) Penicillin; Translations: [penicillin] Drug Allergy rash [facility] (6 sources) Penicillins; Translations: [Penicillins] Allergy to drug (finding) 3 Anaphylaxis [facility] (1 source) Penicillins Drug allergy (disorder) 3 [facility] (2 sources) predniSONE; Translations: [prednisone] Drug Allergy 3 Difficulty Breathing [facility] (1 source) Penicillins Drug allergy (disorder) 3 [facility] Medications Current Medications Medication Drug Class(es) Dates Sig (Normalized) Sig (Original) albuterol 0.83 mg/ml inhalation solution (15 sources) beta2-Adrenergic Agonist Start: 02-14-2024 take 2.5 mg by inhalation every six hours for wheezing albuterol 0.083% Inh Clarisse 3 mL 2.5 mg, 3 mL, Inhalation, q6hr for wheezing, 60 EA, Refill(s) 11, [id number], 177, cm, 02/14/24 10:05:00 EDT, Height/Length Dosing, 78, kg, 02/14/24 10:05:00 EDT, Weight Dosing Start Date: 02/14/24 Status: Ordered Start: 01-05-2024 take 2.5 mg by inhal ation every six hours for wheezing albuterol 0.083% Inh Clarisse 3 mL 2.5 mg, 3 mL, Inhalation, q6hr for wheezing, 60 EA, Refill(s) 0, [facility] #[id number], 177, cm, 01/05/24 17:52:00 EDT, Height/Length Dosing, [...] 90 tab(s), Refills(s) 3, [id number], 177, cm, 12/27/23 12:11:00 EDT, Height/Length Dosing, [...] 90 tab(s), Refills(s) 3, [id number], 177, cm, 07/05/23 11:01:00 EDT, Height/Length Dosing, [...] day(s), 10.7 gm, Refill(s) 11, [id number], 177, cm, 02/14/24 10:05:00 EDT, Height/Length Dosing, 78, kg, 02/14/24 10:05:00 EDT, Weight Dosing Start Date: 02/14/24 Stop Date: 02/08/25 Status: Ordered enzalutamide 40 mg oral capsule (2 sources) Androgen Receptor Inhibitor Start: 07-31-2022 take 4 capsules by mouth once daily enzalutamide 40 mg oral capsule 160 mg = 4 cap(s), Oral, Daily, # 120 cap(s), Refills(s) 11, [facility]acy: [facility] #[id number], 177, cm, 07/31/22 10:17:00 EDT, Height/Length Dosing, [...] 03/02/19 Status: Ordered take 3 tablets by [facility] every week methotrexate 2.5 mg oral tablet [...] day(s), # 5 tab(s), Refills(s) 0, Pharmacy: [facility] #[id number], 177, cm, 01/05/24 17:52:00 EDT, Height/Length Dosing, [...] day(s), # 28 blister(s), Refills(s) 11, Pharmacy: [facility] #[id number], 177, cm, 01/13/24 9:28:00 EDT, Height/Length Dosing, [...] 07-09-2023 Episodic Other aftercare (1 source) Other shelter (current) drug therapy; Translations: [OTH [facility] CURRENT DRUG THERAPY] Onset: 10-26-2022 Episodic Other [...] Range Facility Physician Orderon 02-28-2024 Physician Order [id number]#2.00TIFF Sent order to [id number] [facility] Comment on above: Result Comment: Elec tronically Signed By: Nancy Community Relations Coordinator, Virgilio Lechuga\.br\Date and Time Signed: 02/28/24 14:38 EDT Consent for Treatmenton 01-17 Consent for Treatment [id number]#1.00TIFF [facility] Heart and Vascular Office/Cl inic [...] wheezing, 60 EA, Refill(s) 11, [id number], 177, cm, 02/14/24 10:05:00 EDT, Height/Length Dosing, 78, kg, 02/14/24 10:05:00 EDT, Weight Dosing budesonide/formoterol/glycop yrrolate, 2 puff(s), Inhalation, BID for 30 day(s), 10.7 gm, Refill(s) 11, [facility] #[id number], 177, cm, 02/14/24 10:05:00 EDT, Height/Length Dosing, 78, kg, 02/14/24 10:05:00 EDT, Weight Dosing 2. Chronic respiratory failure (J96.10: Chronic respiratory failure, unspecified whether with hypoxia or hypercapnia) The patient qualifies for supplemental oxygen. He is active and mobile and would benefit from portable oxygen concentrator. He has been working with [employer] and order will be sent Follow-up No [...] Recorded pneumococcal 13-valent vaccine 01/23/2015 Recorded [facility] Comment on above: Result Comment: Elec tronically Signed By: Swetha MORE, Lm Stahl\.br\Date and Time Signed: 02/14/24 12:12 EDT Physician Orderon 02-14-2024 Physician Order [id number]#1.00TIFF [facility] Pulmonary Function Studieson 02-05-2024 Pulmonary Function [...] cannula. READ BY: Stephanie Simmons Dictated: 01/29/2024 [id number] Transcribed: 02/01/2024 [facility] Comment on above: Result Comment: Elec tronically Signed By: Pavel MORE, Satnam Mcclain\.br\Date and Time Signed: 02/05/24 00:38 EDT Physician Orderon 02-02-2024 Physician Order [id number]#1.00TIFF [facility] Consent for Treatmenton 01-16 Consent for Treatment [id number]#1.00TIFF [facility] Pulmonary Function Testson 0 01-27-2024 Pulmonary Function Tests [id number]#1.00TIFF [facility] Respiratory Documentationon 01-27-2024 Respiratory Documentation [id number]#1.00TIFF [facility] Consent for Treatmenton 12-17 Consent for Treatment [id number]#1.00TIFF [facility] Heart and Vascular Office/Cl inic [...] day(s), # 28 blister(s), Refills(s) 11, Pharmacy: [facility] #[id number], 177, cm, 01/13/24 9:28:00 EDT, Height/Length Dosing, [...] Recorded pneumococcal 13-valent vaccine 01/23/2015 Recorded [facility] Comment on above: Result Comment: Elec tronically Signed By: Swetha MORE, Lm Stahl\.br\Date and Time Signed: 01/13/24 18:07 EDT Physician Orderon 01-13-2024 Physician Order [id number]#1.00TIFF [facility] Discharge Instructionson Discharge Instructions [id number]#1.00TIFF [facility] XR Chest Single Viewon 01-05 XR [...] mGy = na DAP = na [facility] BMPon 01-05-2024 Anion gap [Moles/Vol] 12 mmol/L Normal 6-16 [facility] Comment on above: Performed By: #### 2 016842, 22718748, 65706476, 2503322, 74633846, 86685175 #### [facility] [address] [place] [address] Calcium [Mass/Vol] 9.3 mg/dL Normal 8.9-11.1 [facility] Comment on above: Performed By: #### 2 739234, 91331119, 09006959, 9896975, 13503529, 08183644 #### [facility] [address] [place] [address] Chloride [Moles/Vol] 107 mmol/L Normal 101-111 [facility] Comment on above: Performed By: #### 2 278843, 20583081, 93634959, 3338580, 89974207, 71767320 #### [facility] [address] [place] [address] CO2 [Moles/Vol] 26 mmol/L Normal 21-31 [facility] Comment on above: Performed By: #### 2 098358, 83230321, 17281220, 8723616, 11591399, 68797128 #### [facility] [address] [place] [address] Creatinine [Mass/Vol] 0.9 mg/dL Normal 0.5-1.3 [facility] Comment on above: Performed By: #### 2 101794, 05815229, 63460190, 2618477, 83333035, 52190841 #### [facility] [address] [place] [address] Glucose [Mass/Vol] 89 mg/dL Normal 55-199 [facility] Comment on above: Performed By: #### 2 600489, 83333912, 48459929, 0082961, 36487662, 85209276 #### [facility] [address] [place] [address] Potassium [Moles/Vol] 4.3 mmol/L Normal 3.5-5.3 [facility] Comment on above: Performed By: #### 2 112068, 34617360, 78905038, 3535546, 60303447, 18530452 #### [facility] [address] [place] [address] Sodium [Moles/Vol] 141 mmol/L Normal 135-145 [facility] Comment on above: Performed By: #### 2 268040, 36708201, 04739929, 8538815, 03241950, 59248234 #### [facility] [address] [place] [address] Urea nitrogen [Mass/Vol] 18 mg/dL Normal 5-21 [facility] Comment on above: Performed By: #### 2 591924, 96904248, 80712268, 5096348, 78800219, 07141710 #### [facility] [address] [place] [id number] Urea nitrogen/Creatinine [Mass ratio] 20 No Units Normal 10-20 [facility] Comment on above: Performed By: #### 2 178528, 48929763, 89736053, 5271659, 27147150, 85716358 #### [facility] [address] [place] [address] BNPon 4 Natriuretic peptide B (Bld) [Mass/Vol] 68 pg/mL Normal 5-80 [facility] Comment on above: Performed By: #### 2 886792, 31170306, 70583395, 2200534, 42688583, 11188623 #### [facility] [address] [place] [address] CBC w/ Auto Diffon 4 Basophils/100 WBC (Bld) 0.9 % Normal 0.0-2.0 [facility] Comment on above: Performed By: #### 2 288903, 06358468, 86196010, 0484661, 04325247, 72745435 #### [facility] [address] [place] [address] Basophils/Leukocytes Auto (Bld) [Pure # fraction] 0.1 E9/L Normal 0.0-0.2 [facility] Comment on above: Performed By: #### 2 506353, 06405609, 16708193, 8469329, 88109721, 72477165 #### [facility] [address] [place] [address] Eosinophils (Bld) [#/Vol] 0.2 E9/L Normal 0.0-0.5 [facility] Comment on above: Performed By: #### 2 830320, 88945407, 41426796, 8736550, 91888856, 75367710 #### [facility] [address] [place] [address] Eosinophils/100 WBC (Bld) 2.2 % Normal 0.0-8.0 [facility] Comment on above: Performed By: #### 2 662726, 26770929, 77482598, 5234410, 32686983, 82111266 #### [facility] [address] [place] [address] Erythrocyte distribution width (RBC) [Ratio] 14.7 % High 10.9-14.2 [facility] Comment on above: Performed By: #### 2 160634, 82187083, 47711303, 5511885, 55180221, 39234075 #### [facility] [address] [place], [place] [address] Hematocrit (Bld) [Volume fraction] 39.6 % Normal 37.7-49.0 [facility] Comment on above: Performed By: #### 2 690342, 15294872, 76187513, 2112244, 44047518, 56717074 #### [facility] [address] [place] [address] Hemoglobin (Bld) [Mass/Vol] 13.3 g/dL Low 13.5-17.5 [facility] Comment on above: Performed By: #### 2 756647, 30232592, 44896675, 1072980, 41320038, 05447792 #### [facility] [address] [place] [address] Lymphocytes (Bld) [#/Vol] 1.4 E9/L Normal 1.0-4.0 [facility] Comment on above: Performed By: #### 2 198173, 31962742, 11566713, 8650344, 66316732, 91079356 #### [facility] [address] [place] [address] Lymphocytes/100 WBC (Bld) 18.9 % Normal 14.0-50.0 [facility] Comment on above: Performed By: #### 2 815990, 41238916, 66935227, 8652994, 19770466, 37620122 #### [facility] [address] [place] [address] MCH (RBC) [Entitic mass] 32.2 pg Normal 27.0-34.0 [facility] Comment on above: Performed By: #### 2 671572, 69613459, 90152746, 5548178, 57924839, 15205118 #### [facility] [address] [place] [address] MCHC (RBC) [Mass/Vol] 33.7 g/dL Normal 31.4-36.0 [facility] Comment on above: Performed By: #### 2 733934, 71815688, 90841799, 6980835, 50946145, 66392610 #### [facility] [address] [place] [address] MCV (RBC) [Entitic vol] 95.8 fL Normal 80.0-100.0 [facility] Comment on above: Performed By: #### 2 439060, 69815826, 99855692, 4925117, 37191054, 52581457 #### [facility] [address] [place] [address] Monocytes (Bld) [#/Vol] 0.5 E9/L Normal 0.2-1.0 [facility] Comment on above: Performed By: #### 2 006969, 67176116, 00188068, 6031887, 74535758, 84553110 #### [facility] [address] [place] [address] Neutrophils (Bld) [#/Vol] 5.3 E9/L Normal 2.0-7.5 [facility] Comment on above: Performed By: #### 2 188274, 13945311, 64291135, 5607164, 10250954, 89582189 #### [facility] [address] [place] [address] Neutrophils/100 WBC (Bld) 71.3 % Normal 36.0-75.0 [facility] Comment on above: Performed By: #### 2 943367, 93693540, 05716984, 0227188, 81938636, 21014853 #### [facility] [address] [place] [address] Platelet mean volume (Bld) [Entitic vol] 7.8 fL Normal 6.4-10.8 [facility] Comment on above: Performed By: #### 2 307803, 39036443, 26102197, 4926250, 37654455, 37330390 #### [facility] [address] [place] [address] Platelets (Bld) [#/Vol] 327.0 E9/L Normal 150.0-500. 0 [facility] Comment on above: Performed By: #### 2 306350, 78223189, 70626975, 6809717, 61591058, 50883964 #### [facility] [address] [place] [address] RBC (Bld) [#/Vol] 4.1 E12/L Low 4.3-5.9 [facility] Comment on above: Performed By: #### 2 668916, 67782758, 03214788, 1653703, 06180140, 51757463 #### [facility] [address] [place] [address] WBC corrected for nucl RBC Auto (Bld) [#/Vol] 7.4 E9/L Normal 4.0-11.0 [facility] Comment on above: Performed By: #### 2 712923, 00535359, 77202541, 3155541, 25350363, 12918260 #### [facility] [address] [place] [address] CHEMISTRYOrdered By: SYSTEM SYSTEM on 01-05-2024 Troponin [...] Sensitivity Troponin I Instructions For Use, Caryl Angie, May 2018) Anion gap [Moles/Vol] 12 mmol/L [...] 68 pg/mL Normal 5 - 80 pg/mL [facility] HemeManSS COAGULATIONOrdered By: Loy Haywood on 01-05-2024 aPTT Coag (PPP) [Time] 32.1 s Normal 25.1 - 36.5 second(s) [facility] Auto Coag Comment on above: Interpretive Data: [...] the same coagulation reagent and instrumentation as [facility]. Currently there are no coagulation studies available worldwide for children to 14 days, and no normal ranges. Heparin therapeutic range (represented by Anti-Factor Xa activity of 0.2 - 0.4 U/mL) corresponds to PTT of 56.6 - 109.0 sec. INR Coag (PPP) [Relative time] 1.04 {INR} Invalid Interpretation Code [facility] Auto Coag Comment on above: Interpretive Data: I NR results are specifically intended to assess patients stabilized on long-term Anticoagulation therapy suggested INR s Less Intensive Anticoagulation 2.0 3.0 Conventional Range 3.0 4.5 PT Coag (PPP) [Time] 11.6 s Normal 9.4 - 1 2.5 second(s) [facility] Auto Coag Comment on above: Interpretive Data: [...] the same coagulation reagent and instrumentation as [facility]. Currently there are no coagulation studies available worldwide for children to 14 days, and no normal ranges. Consent for Treatmenton 12-17 Consent for Treatment [id number]#1.00TIFF [facility] ED Clinical Summaryon 2023 ED Clinical Summary (Inserted Image. Charley ble to display) [place] [id number] ED Clinical Summary Person Information Name: TAN LASSITER[facility] Age: 73 Years : 1950 Sex: Male Language: [place] PCP: JUDAH ALEJANDRA MD Marital Status: Single [...] 01/05/2024 21:23:20 01/05/2024 21:23:20 01/05/2024 21:23:20 ADDRESS: [address] [place] [phone] PHYS DOC NOTES: Addendum by Landy Najera DO on January 05, 2024 21:10:51 EDT MEDICAL INFORMATION: Prescriptions Given: New Medications [facility] #[id number], [address], [place] [id number], [phone] predniSONE (predniSONE 50 mg Tab) 1 Tablets By Mouth every day for 5 Days. Refills: 0. Medications to Continue Taking That Have Changed [facility] #37132, [address], [place] [id number], [phone] START: albuterol (albuterol 0.083% Inh Clarisse 3 [...] EDUCATION INFORMATION: Instructions: Chronic Obstructive Pulmonary Disease, Ppsp-qb-Ghtz Follow up: With: Address: When: Lm Posada [address] [place] [id number] [phone] Business (1) In 3 days 01/08/2024 Comments: [...] worsening symptoms. With: Address: When: JUDAH ALEJANDRA [address] [place] [address] [phone] Business (1) In 3 days DIAGNOSIS: 1:Chest pain; 2:COPD with acute exacerbation [facility] ED Note-Physicianon 01-05-20 ED Note-Physician Basic [...] patient's friend states that he went to [facility] to be tested for home oxygen tank [...] and Complexity of Problems Differential Diagnosis: [] [facility] Data External documents reviewed: [] My EKG [...] 125 mg (more content not included)... [facility] Comment on above: Result Comment: Elec [...] these instructions at home: Medicines ? Take mqfj-usl-bhxetac and prescription medicines only as told by [...] may repres (more content not included)... [facility] ED Patient Summaryon 024 ED Patient Summary (Inserted Image. Charley ble to display) [address] [address] Patient Discharge Instructions Person Information Name: TAN LASSITER Age: 73 Years Arrival Date: 01/05/2024 17:38:13 Discharge Diagnosis: 1:Chest pain; 2:COPD with acute exacerbation Primary Care Physician: JUDAH ALEJANDRA MD Provider Information Primary Provider: Davi Mccall M.D. [employer] Processor:None The exam and treatment you received in the Emergency Department were for an urgent problem and are not intended as complete care. It is important that you follow up with a doctor, nurse practitioner, or physician?s assistant production manager for ongoing care. If your symptoms become worse or you do not improve as expected and you are unable to reach your usual health care provider, you should return to the Emergency Department. We are available 24 hours a day. TAN LASSITER has been given the following list of patient education materials, prescriptions and follow-up instructions: Follow-up Instructions: With: Address: When: Lm Posada [address] [place], [place] [phone] [email or web address] (1) In 3 days 01/08/2024 Comments: Take [...] worsening symptoms. With: Address: When: JUDAH [facility] [place] [address] [email or web address] (1) In 3 days In the event that this physician does not participate in your insurance network, please consult with your insurance company to find a nearby participating provider. Patient Education Materials: Chronic Obstructive Pulmonary Disease, Tlmh-of-Fufk A MESSAGE TO ALL PATIENTS REGARDING OPIOIDS PRESCRIPTION OPIOIDS: WHAT YOU NEED TO KNOW Prescription opioids can be used to help relieve lmxpuzby-et-ohacfl pain and are often prescribed following a [...] take-back program (more content not included)... [facility] HEMATOLOGYOrdered By: SYSTEM SYSTEM on 01-05-2024 [...] NEG Ctl Pass (01/05/24 7:18 PM) Normal [facility] Man Sero Rapid COV Int POS Ctl Pass (01/05/24 7:18 PM) Normal [facility] Man Sero SARS-CoV+SARS-CoV-2 (COVID-19) Ag IA.rapid Ql (Resp) Not Detected 6 (01/05/24 7:18 PM) Normal Not Detected [facility] Man Sero Comment on above: Interpretive Data: T javier Adan Veritor System for Rapid Detection of SARS-CoV-2 [...] revoked sooner. Monitor Recordon 01-05-2024 Monitor Record [id number]#1.00TIFF Normal [facility] PT & PTTon 01-05-2024 aPTT Coag (PPP) [Time] 32.1 second(s) Normal 25.1-36.5 [facility] Comment on above: Result Comment: Para [...] the same coagulation reagent and instrumentation as [facility]. Currently there are no coagulation studies available worldwide for children to 14 days, and no normal ranges. Heparin therapeutic range (represented by Anti-Factor Xa activity of 0.2 - 0.4 U/mL) corresponds to PTT of 56.6 - 109.0 sec. Performed By: #### 2 817393, 77939145, 12854600, 6485097, 06191542, 45260392 #### [facility] [address] [place] [address] INR Coag (PPP) [Relative time] 1.04 {INR} Invalid Interpretation Code [facility] Comment on above: Result Comment: INR results are specifically intended to assess patients stabilized on long-term Anticoagulation therapy suggested INR?s ?Less Intensive Anticoagulation? 2.0 ? 3.0 Conventional Range 3.0 ? 4.5 Performed By: #### 2 617606, 19880737, 34847558, 4455270, 44314754, 85059538 #### [facility] [address] [place] [address] PT Coag (PPP) [Time] 11.6 second(s) Normal 9.4-12.5 [facility] Comment on above: Result Comment: 15 [...] were obtained from a study by Arian [place], et al. prepared from 1437 samples obtained at 7 different centers using the same coagulation reagent and instrumentation as [facility]. Currently there are no coagulation studies available worldwide for children to 14 days, and no normal ranges. Performed By: #### 2 888804, 69761267, 15203447, 8145027, 26322539, 24283646 #### [facility] [address] [place] [address] Rapid COVID Antigen ([facility])on 01-05-2024 Rapid COV Int NEG Ctl Pass Normal [facility] Comment on above: Performed By: #### 2 [id number] #### [facility] [address] [place] [address] Rapid COV Int POS Ctl Pass Normal [facility] Comment on above: Performed By: #### 2 [id number] #### [facility] [address] [place] [address] SARS-CoV+SARS-CoV-2 (COVID-19) Ag IA.rapid Ql (Resp) Not detected Normal Not Detected [facility] Comment on above: Result Comment: The iKoaitor? System for Rapid Detection of SARS-CoV-2 is [...] or revoked sooner. Performed By: #### 2 [id number] #### [facility] [address] [place] [address] Troponin 0 Hr.on 01-05-2024 Troponin 10.40 pg/mL Low 15.90-38.4 0 [facility] Comment on above: Result Comment: The 95% CI (Confidence Interval) PPV (Positive Predictive Value) for myocardial infarction in females is 38 pg/mL, in males 51 pg/mL. The results should be used in conjunction with clinical conditions of myocardial infarction. (Access High Sensitivity Troponin I Instructions For Use, apartum, May 2018) Performed By: #### 2 296727, 03731653, 35164697, 8550605, 32334694, 94998054 #### [facility] [address] [place] [address] Troponin 3 Hr.on 01-05-2024 Troponin 10.20 pg/mL Low 15.90-38.4 0 [facility] Comment on above: Result Comment: The 95% CI (Confidence Interval) PPV (Positive Predictive Value) for myocardial infarction in females is 38 pg/mL, in males 51 pg/mL. The results should be used in conjunction with clinical conditions of myocardial infarction. (Access High Sensitivity Troponin I Instructions For Use, apartum, May 2018) Performed By: #### 2 [id number], [id number], [id number], [id number], [id number], [id number] #### [facility] [address] [place] [address] eGFRon 01-05-2024 eGFR 89 mL/min/1.73 m2 Normal >=59 [facility] Comment on above: Order Comment: Order added by Discern Expert. Performed By: #### 2 [id number], [id number], [id number], [id number], [id number], [id number] #### [facility] [address] [place] [address] Result Letter Officeon 12-29 Result Letter Office (Inserted Image. Un able to display) December 30, 2023 TAN LASSITER [address] [place] [address] : 1950 Dear Mr Fajardo Evangelista, We [...] your next appointment. [facility] [address] [address] Normal [facility] Ambulatory Visit Summaryon 0 12-27-2023 Ambulatory [...] Lorenzo STILL MD Where: [facility] Normal [facility] CHEMISTRYOrdered By: SYSTEM SYSTEM on 12-27-2023 [...] for this result was chemiluminescence using Caryl nooked's Access Hybritech PSA reagent. PSA Totalon 12-27-2023 Prostate specific Ag [Mass/Vol] 2.7 ng/mL Normal 0.1-3.5 [facility] Comment on above: Result Comment: The concentration of PSA determined by different manufacturers can vary due to differences in assay methods and reagent specificity. Values obtained from different assay methods cannot be used interchangeably. The methodology used for this result was chemiluminescence using Caryl Angie's Access Hybritech PSA reagent. Performed By: #### 2 [id number], [id number], [id number], [id number], [id number], [id number] #### [facility] [address] [place] [address] Patient Educationon 12-27-19 Patient Education Oncology Cancer [...] if anything looks unusual. Men with a exdgmy-zcak-tzqivj risk for skin cancer may want to see a quality systems specialist (chief reservoir engineering) for an annual body check. What are the benefits of screening? Cancer screening is done to look for cancer in the very early stages, before it spreads and becomes harder to treat and before you would start to notice symptoms. Finding cancer early improves the chances of successful treatment. It ma (more content not included)... Normal [facility] Urology Office/Clinic Noteon 12-27-2023 Urology Office/Clinic [...] [facility] [address], [place] [phone] Additional Instructions: 6 months w/ PSA and [...] influenza virus vac (more content not included)... [facility] Comment on above: Result Comment: Elec tronically Signed By: TESSY MORE, Lorenzo Azul\.br\Date and Time Signed: 12/27/23 13:11 EDT\.br\Electronically Co-Signed By: Zeina Alejandra\.br\Date and Time Co-Signed: 12/27/23 13:08 EDT Pre-Certification Formon Pre-Certification Form [id number]:127 Normal [facility] Ambulatory Visit Summaryon 0 07-05-2023 Ambulatory Visit Summary TAN LASSITER :1950 Visit Date:07/05/2023 Ambulatory Visit Instructions Your Diagnosis Increasing PSA level after treatment for prostate cancer Enlarged prostate with urinary obstruction Nocturia Tests Performed Urnls Dip Stick Auto w/o Microscopy POC 18440 Your Care Team Attending Physician - TESSY MROE, Lroenzo Azul Primary Care Physician - JUDAH ALEJANDRA [...] MORE, Lorenzo Azul Where: [facility] Normal [facility] Patient Educationon 07-05-20 Patient Education Urology [...] Follow these instructions at home: ? Take lrcx-bkm-csjvlna and prescription medicines only as told by [...] medicine (more content not included)... Normal [facility] Urology Office/Clinic Noteon 07-05-2023 Urology Office/Clinic [...] 6 months [facility] [address], [place] [phone] Additional Instructions: w/PSA Patient Education Benign Prostatic [...] 50 mg= (more content not included)... Normal [facility] Comment on above: Result Comment: Elec tronically Signed By: Lorenzo STILL MD\.br\Date and Time Signed: 07/05/23 11:47 EDT\.br\Electronically Co-Signed By: Shannan Washington\.br\Date and Time Co-Signed: 07/05/23 11:46 EDT Insurance Correspondenceon 0 07-01-2023 Insurance Correspondence [id number]:127 Normal [facility] Ambulatory Visit Summaryon 0 06-29-2023 Ambulatory [...] MORE, Lorenzo Azul Where: [facility] PSA Totalon 06-29-2023 Prostate specific Ag [Mass/Vol] 3.3 ng/mL Normal 0.1-3.5 [facility] Comment on above: Result Comment: The concentration of PSA determined by different manufacturers can vary due to differences in assay methods and reagent specificity. Values obtained from different assay methods cannot be used interchangeably. The methodology used for this result was chemiluminescence using apartum's [employer] Hybritech PSA reagent. Performed By: #### 2 [id number], [id number], [id number], [id number], [id number], [id number] #### [facility] [address] [place] [address] Provider Letteron 06-17-2023 Provider Letter (Inserted Image. Charley ble to display) June 17, 2023 TAN LASSITER [facility] [place] [address] : 1950 Dear Tan, You have an appointment with Dr. Lorenzo Still on 07/02/23 which will need to be rescheduled since he will be out of the office that day. I rescheduled you on 07/05/23 at 10:45. If this time does not work for you please call or stop by the [place] office at your earliest convenience so that we can find a time that would work better for you. Thank you for your prompt attention to this matter. Sincerely, [facility] [address], [place] [address] [facility] Office Visit (Cardiology)on 12-07-2022 Follow-up visit Diagnoses/Problems Assessed Paroxysmal SVT (supraventricular tachycardia) (427.0) (I47.1) COPD (chronic obstructive pulmonary disease) (496) (J44.9) Former smoker (V15.82) (Z87.891) Body mass index (BMI) of 23.0 to 23.9 in adult (V85.1) (Z68.23) Orders Paroxysmal SVT (supraventricular tachycardia) Start: Metoprolol Tartrate 50 MG Oral Tablet; Take 1 tablet daily SocHx: Former smoker Tobacco Use Screening; Status:Complete; Done: [id number] Unlinked Stop: Metoprolol Tartrate 50 MG Oral [...] time. He apparently was briefly hospitalized in [place] and transferred to [facility]. The original reason for this is unclear. Nonetheless in [facility] he was evaluated with coronary angiography and [...] negative for complaint. Vitals Vital Signs Recorded: [id number] 09:32AM Heart Rate72, L Radial Exouutxi692, LUE, Sitting Slbfputab92, LUE, Sitting Height5 ft 10 in Alczfz222 lb BMI Rjrnhwpigd06.24 kg/m2 BSA Calculated1.91 Tobacco Useb) No PHQ-2 [...] Screening.on 023 Adult depression screening assessment No [facility] [address] DO Work Phone: Fall risk assessment a) No falls within the last year [facility] [address] DO Work Phone: Tobacco use status CPHS b) No [facility] [address] DO Work Phone: CHEMISTRYOrdered By: SYSTEM [...] 0.9 mg/dL Normal 0.5 - 1.3 mg/dL [facility] Remisol GFR/1.73 sq M.predicted among blacks MDRD (S/P/Bld) [Vol rate/Area] mL/min/1.73 m2 Normal >=59mL/min /1.73 m2 [facility] Chem S GFR/1.73 sq M.predicted among non-blacks MDRD (S/P/Bld) [Vol rate/Area] mL/min/1.73 m2 Normal >=59mL/min /1.73 m2 [facility] Chem S Globulin (S) [Mass/Vol] 3.2 g/dL [...] 18 mg/dL Normal 5 - 21 mg/dL [facility] Remisol Urea nitrogen/Creatinine [Mass ratio] 20 mg/mg Normal 10 - 20 FT Remisol Cardiovasc Arrhythmia Result son 10-29-2022 Cardiovasc Arrhythmia Results Reason For Visit Event Monitor: TAN is here for the application of a 30 day event monitor in office., Diagnosis: PSVT Ordering Physician: Dr. Saldaña Enrollment sent to: [employer] Monitor number [id number] applied. TAN is here for the application [...] (I47.1) Patient Discussion/Summary Strips sent over from [facility] with a patient activated symptom of passed out. Dr. Montelongo was notified. Patient was in sinus rhythm. Sent over to [facility] for Dr. Everett to review. per suad--was ordered in hospital per Dr. Saldaña. Applied in [place], Dr. Everett will be the managing physician. Strip given to Dr. Garrett Barr MD to review in Dr. Jc Everett MD absence . Future Appointments Date/TimeProviderSpecialtySi te 12/07/2022 09:50 Jc Hayes, JLVdeyjrqeeg606 [facility] [address] DO Signatures Electronically signed by : Leanne Larkin L.P.N.; Nov 03 2022 4:00PM EST (Author) Electronically signed by : Goran Palmer MD; Dec 04 2022 10:16AM EST (Author) Normal [employer] BASIC METABOLIC PANELon 01-0 Anion gap [Moles/Vol] 11 mmol/L Normal 10 - 20 [facility] Comment on above: Performed By: #### B MP ####[facility] [place], [place] [id number] Calcium [Mass/Vol] 8.8 mg/dL Normal 8.6 - 10.3 [facility] Comment on above: Performed By: #### B MP ####[facility] [place], [place] [id number] Chloride [Moles/Vol] 106 mmol/L Normal 98 - 107 [facility] Comment on above: Performed By: #### B MP ####[address] [id number] Creatinine [Mass/Vol] 0.71 mg/dL Normal 0.50 - 1.30 [facility] Comment on above: Performed By: #### B MP ####[address] [id number] eGFR MALE >90 Normal >90 [facility] Comment on above: Result Comment: CALC ULATIONS OF ESTIMATED GFR ARE PERFORMED USING THE 2020 CKD-EPI STUDY REFIT EQUATION WITHOUT THE RACE VARIABLE FOR THE IDMS-TRACEABLE CREATININE METHODS. https://jasn.asnjournals.org/content//ASN.4756356 988 Performed By: #### B MP ####[address] [id number] Glucose [Mass/Vol] 111 mg/dL High 74 - 99 [facility] Comment on above: Performed By: #### B MP ####[address] [id number] HCO3 (Bld) [Moles/Vol] 28 mmol/L Normal 21 - 32 [facility] Comment on above: Performed By: #### B MP ####[address] [id number] Potassium [Moles/Vol] 4.5 mmol/L Normal 3.5 - 5.3 [facility] Comment on above: Performed By: #### B MP ####[address] [id number] Sodium [Moles/Vol] 140 mmol/L Normal 136 - 145 [facility] Comment on above: Performed By: #### B MP ####[address] [id number] Urea nitrogen [Mass/Vol] 19 mg/dL Normal 6 - 23 [facility] Comment on above: Performed By: #### B MP ####[address], [place] [id number] CBCon 2022 Erythrocyte distribution width (RBC) [Ratio] 12.2 % Normal 11.5 - 14.5 [facility] Comment on above: Performed By: #### C BC ####[facility] [place], [place] [id number] Hematocrit (Bld) [Volume fraction] 39.3 % Low 41.0 - 52.0 [facility] Comment on above: Performed By: #### C BC ####[address] [id number] Hemoglobin (Bld) [Mass/Vol] 13.4 g/dL Low 13.5 - 17.5 [facility] Comment on above: Performed By: #### C BC ####[address] [id number] MCHC (RBC) [Mass/Vol] 34.1 g/dL Normal 32.0 - 36.0 [facility] Comment on above: Performed By: #### C BC ####[address] [id number] MCV (RBC) [Entitic vol] 92 fL Normal 80 - 100 [facility] Comment on above: Performed By: #### C BC ####[address] [id number] Platelets (Bld) [#/Vol] 273 10*3/uL Normal 150 - 450 [facility] Comment on above: Performed By: #### C BC ####[address] [id number] RBC 4.25 x10E12/L Low 4.50 - 5.90 [facility] Comment on above: Performed By: #### C BC ####[address] [id number] WBC (Bld) [#/Vol] 7.6 10*3/uL Normal 4.4 - 11.3 [facility] Comment on above: Performed By: #### C ####[facility] [place], [place] [id number] Laboratory - Chemistry and C hemistry - challengeon 2022 Anion gap [Moles/Vol] 11 mmol/L 10 - 20 [facility] [address] DO Work Phone: Calcium [Mass/Vol] 8.8 mg/dL 8.6 - 10.3 [facility] [address] DO Work Phone: [phone] Chloride [Moles/Vol] 106 mmol/L 98 - 107 [facility] [address] DO Work Phone: [phone] CO2 [Moles/Vol] 28 mmol/L 21 - 32 [facility] Matt [address] 250 DO Work Phone: Creatinine [Mass/Vol] 0.71 mg/dL See Below [facility] Matt [address] 250 DO Work Phone: Comment on above: Reference Range: 0.5 0 - 1.30 Glucose [Mass/Vol] 111 mg/dL above high threshold 74 - 99 [facility] Matt [address] DO Work Phone: [phone] Potassium [Moles/Vol] 4.5 mmol/L 3.5 - 5.3 [facility] Matt [address] 250 DO Work Phone: [phone] Sodium [Moles/Vol] 140 mmol/L 136 - 145 [facility] [address] 250 DO Work Phone: [phone] Urea nitrogen [Mass/Vol] 19 mg/dL 6 - 23 [facility] Matt [address] 250 DO Work Phone: [phone] Laboratory - Hematology and Cell countson 2022 Erythrocyte distribution width (RBC) [Ratio] 12.2 % See Below [facility] [address] DO Work Phone: Comment on above: Reference Range: 11. 5 - 14.5 Hematocrit (Bld) [Volume fraction] 39.3 % below low threshold See Below [facility] 250 DO Work Phone: Comment on above: Reference Range: 41. 0 - 52.0 Hemoglobin (Bld) [Mass/Vol] 13.4 g/dL below low threshold See Below [facility] Matt Dalton DO Work Phone: Comment on above: Reference Range: 13. 5 - 17.5 MCHC (RBC) [Mass/Vol] 34.1 g/dL See Below [facility] Matt Dalton DO Work Phone: Comment on above: Reference Range: 32. 0 - 36.0 MCV (RBC) [Entitic vol] 92 fL 80 - 100 [facility] Matt Dalton DO Work Phone: Platelets (Bld) [#/Vol] 273 10*3/uL 150 - 450 [facility] Matt Dalton DO Work Phone: RBC (Bld) [#/Vol] 4.25 {x10E12/L} below low threshold See Below [facility] Matt Dalton DO Work Phone: Comment on above: Reference Range: 4.5 0 - 5.90 WBC (Bld) [#/Vol] 7.6 10*3/uL 4.4 - 11.3 [facility] Matt Dalton DO Work Phone: No Panel Informationon 10-25 >90 >90 [facility] Matt Dalton DO Work Phone: Comment on above: CALCULATIONS OF SILVIANO MATED GFR ARE PERFORMED USING THE 2020 CKD-EPI STUDY REFIT EQUATION WITHOUT THE RACE VARIABLE FOR THE IDMS-TRACEABLE CREATININE METHODS.https://jasn.asnjournals.org/content//ASN .7509932298 TROPONIN I, HIGH SENSITIVITY on 2022 TROPONIN I, HIGH SENSITIVITY 61 ng/L Critically high 0 - 20 [facility] Comment on above: Order Comment: Melody SANON [...] performed using a different testing methodology at [facility] than at other [facility]. Direct result comparisons should only be made within the same method. Called- RB to Lanny Peña, 2022 06:42 Performed By: #### T [facility] [[email or web address]] ####[facility] [place], [place] [id number] Tropinin I.cardiac panel High sensitivity method 61 ng/L Critically high 0 - 20 -[facility] [address] DO Work Phone: Comment [...] performed using a different testing methodology at [facility] than at other [facility]. Direct result comparisons should only be made within the same method. Called- RB to Lanny Peña, 2022 06:42 BASIC METABOLIC PANELon - Anion gap [Moles/Vol] 10 mmol/L Normal 10 - 20 [facility] Comment on above: Performed By: #### B MP ####[facility] [place], [place] [id number] Calcium [Mass/Vol] 8.6 mg/dL Normal 8.6 - 10.3 [facility] Comment on above: Performed By: #### B MP ####[address] [id number] Chloride [Moles/Vol] 106 mmol/L Normal 98 - 107 [facility] Comment on above: Performed By: #### B MP ####[address] [id number] Creatinine [Mass/Vol] 0.82 mg/dL Normal 0.50 - 1.30 [facility] Comment on above: Performed By: #### B MP ####[address] [id number] eGFR MALE >90 Normal >90 [facility] Comment on above: Result Comment: CALC ULATIONS OF ESTIMATED GFR ARE PERFORMED USING THE 2020 CKD-EPI STUDY REFIT EQUATION WITHOUT THE RACE VARIABLE FOR THE IDMS-TRACEABLE CREATININE METHODS. https://jasn.asnjournals.org/content//ASN.4211543 988 Performed By: #### B MP ####[address] [id number] Glucose [Mass/Vol] 114 mg/dL High 74 - 99 [facility] Comment on above: Performed By: #### B MP ####[place] [address] [place], [place] [id number] HCO3 (Bld) [Moles/Vol] 26 mmol/L Normal 21 - 32 [facility] Comment on above: Performed By: #### B MP ####[address] [id number] Potassium [Moles/Vol] 4.2 mmol/L Normal 3.5 - 5.3 [facility] Comment on above: Performed By: #### B MP ####[facility] [place], [place] [address] Sodium [Moles/Vol] 138 mmol/L Normal 136 - 145 [facility] Comment on above: Performed By: #### B MP ####[facility] [place], [place] [address] Urea nitrogen [Mass/Vol] 19 mg/dL Normal 6 - 23 [facility] Comment on above: Performed By: #### B MP ####[address] [id number] CBCon 10-24-2022 Erythrocyte distribution width (RBC) [Ratio] 12.5 % Normal 11.5 - 14.5 [facility] Comment on above: Performed By: #### C BC ####[address] [id number] Hematocrit (Bld) [Volume fraction] 38.5 % Low 41.0 - 52.0 [facility] Comment on above: Performed By: #### C BC ####[address] [id number] Hemoglobin (Bld) [Mass/Vol] 13.1 g/dL Low 13.5 - 17.5 [facility] Comment on above: Performed By: #### C BC ####[address] [id number] MCHC (RBC) [Mass/Vol] 34.0 g/dL Normal 32.0 - 36.0 [facility] Comment on above: Performed By: #### C BC ####[address] [id number] MCV (RBC) [Entitic vol] 92 fL Normal 80 - 100 [facility] Comment on above: Performed By: #### C BC ####[address] [id number] Platelets (Bld) [#/Vol] 239 10*3/uL Normal 150 - 450 [facility] Comment on above: Performed By: #### C BC ####[facility] [place], [place] [address] RBC 4.18 x10E12/L Low 4.50 - 5.90 [facility] Comment on above: Performed By: #### C BC ####[facility] [place], [place] [address] WBC (Bld) [#/Vol] 7.7 10*3/uL Normal 4.4 - 11.3 [facility] Comment on above: Performed By: #### C BC ####[facility] [place], [place] [address] Daily Progress Note-Medicine on 10-24-2022 Daily Progress [...] down. Objective Data: Objective Information: T PRBPMAPSpO2 [id number]/8232365% Date/Time10/24 7: 7: 7: 7: 7: 7:56 [...] Radiology Results: Results: Conclusion: Preliminary Cardiology Report [address] [address] Preliminary Vascular Lab Report [facility] Patient Name: TAN LASSITER Reading Physician: [id number] Kylah Copeland MD, RPVI Study Date: 10/24/2022 Referring Physician: JANINE OPALALVIN MRN/PID: [id number] PCP: Accession/Order#: [id number] CC Report to: Date of : 1950 Technologist: Jacqueline Forman RDMS Gender: M Technologist 2: Admission Status: Inpatient Location Performed: [facility] Diagnosis/ICD: I73.9-Peripheral vascular disease, unspecified Procedure/CPT: 15313 Peripheral artery [facility] Only-42150 Smoker: Former, 1ppd x 40yrs. Pertinent History: [...] Normal Ranges (more content not included)... Normal [facility] - Chemistry and C hemistry - challengeon 10-24-2022 Anion gap [Moles/Vol] 10 mmol/L 10 - 20 [facility] Matt blakely 250 DO Work Phone: [phone] Calcium [Mass/Vol] 8.6 mg/dL 8.6 - 10.3 [facility] Matt blakely 250 DO Work Phone: [phone] Chloride [Moles/Vol] 106 mmol/L 98 - 107 [facility] Matt blakely 250 DO Work Phone: [phone] CO2 [Moles/Vol] 26 mmol/L 21 - 32 [facility] Matt blakely [facility] DO Work Phone: [phone] Creatinine [Mass/Vol] 0.82 mg/dL See Below [facility] Matt blakely [facility] DO Work Phone: [phone] Comment on above: Reference Range: 0.5 0 - 1.30 Glucose [Mass/Vol] 114 mg/dL above high threshold 74 - 99 [facility] Matt Dalton DO Work Phone: [phone] Potassium [Moles/Vol] 4.2 mmol/L 3.5 - 5.3 [facility] Matt Dalton DO Work Phone: [phone] Sodium [Moles/Vol] 138 mmol/L 136 - 145 [facility] Matt Dalton DO Work Phone: [phone] Urea nitrogen [Mass/Vol] 19 mg/dL 6 - 23 [facility] Matt blakely [facility] DO Work Phone: [phone] Laboratory - Hematology and Cell countson 10-24-2022 Erythrocyte distribution width (RBC) [Ratio] 12.5 % See Below [facility] Matt Dalton DO Work Phone: [phone] Comment on above: Reference Range: 11. 5 - 14.5 Hematocrit (Bld) [Volume fraction] 38.5 % below low threshold See Below [facility] Matt [facility] DO Work Phone: [phone] Comment on above: Reference Range: 41. 0 - 52.0 Hemoglobin (Bld) [Mass/Vol] 13.1 g/dL below low threshold See Below [facility] DrDoctorMary Ellen Dalton DO Work Phone: Comment on above: Reference Range: 13. 5 - 17.5 MCHC (RBC) [Mass/Vol] 34.0 g/dL See Below [facility] Matt Dalton DO Work Phone: Comment on above: Reference Range: 32. 0 - 36.0 MCV (RBC) [Entitic vol] 92 fL 80 - 100 [facility] Matt blakely 250 DO Work Phone: [phone] Platelets (Bld) [#/Vol] 239 10*3/uL 150 - 450 [facility] Matt Dalton DO Work Phone: RBC (Bld) [#/Vol] 4.18 {x10E12/L} below low threshold See Below [facility] Matt Dalton DO Work Phone: Comment on above: Reference Range: 4.5 0 - 5.90 WBC (Bld) [#/Vol] 7.7 10*3/uL 4.4 - 11.3 [facility] Matt blakely 250 DO Work Phone: No Panel Informationon 10-24 >90 >90 [facility] Matt Dalton DO Work Phone: Comment on above: CALCULATIONS OF SILVIANO MATED GFR ARE PERFORMED USING THE 2020 CKD-EPI STUDY REFIT EQUATION WITHOUT THE RACE VARIABLE FOR THE IDMS-TRACEABLE CREATININE METHODS.https://jasn.asnjournals.org/content/early//ASN .5172400284 VASC LAB [facility] onlyon VASC LAB [facility] only [place] [id number] Vascular Lab Report [facility] Patient Name: TAN Montes De Oca Physician: [id number] Kylah Copeland MD, RPVI Study Date: 10/24/2022 Referring Physician: JANINE HAQ MRN/PID: [id number] PCP: Accession/Order#: [id number] CC Report to: Date of : 1950 Technologist: Jacqueline Forman RDMS Gender: M Technologist 2: Admission Status: Inpatient Location Performed: [facility] Diagnosis/ICD: I73.9-Peripheral vascular disease, unspecified Procedure/CPT: 32914 Peripheral artery MICHEAL Only-94397 Smoker: Former, 1ppd x 40yrs. Pertinent History: [...] Left Brachial Pressure 132 mmHg 134 mmHg [id number] Kylah Copeland MD, RPDL Final Normal [facility] VASC LAB [facility] only -[facility] [address] DO Work Phone: BNPon 10-23-2022 Natriuretic peptide B (Bld) [Mass/Vol] 284 pg/mL High 0 - 99 [facility] Comment on above: Result Comment: . <1 00 pg/mL - Heart failure unlikely 100-299 pg/mL - Intermediate probability of acute heart . failure exacerbation. Correlate with clinical . context and patient history. >=300 pg/mL - Heart Failure likely. Correlate with clinical . context and patient history. BNP testing is performed using different testing methodology at [facility] than at other [facility]. Direct result comparisons should only be made within the same method. Performed By: #### B NP2 ####[address] [id number] CBC AND DIFFERENTIALon 10-23 % AUTOMATED IMMATURE GRAN 0.2 % Normal 0.0 - 0.9 [facility] Comment on above: Result Comment: Renetta ture Granulocyte Count (IG) includes promyelocytes, myelocytes and metamyelocytes but does not include bands. Percent differential counts (%) should be interpreted in the context of the absolute cell counts (cells/L). Performed By: #### C BCDF ####[address] [id number] Basophils (Bld) [#/Vol] 0.04 10*3/uL Normal 0.00 - 0.10 [facility] Comment on above: Performed By: #### C BCDF ####[address] [id number] Basophils/100 WBC (Bld) 0.5 % Normal 0.0 - 2.0 [facility] Comment on above: Performed By: #### C BCDF ####[address] [id number] Eosinophils (Bld) [#/Vol] 0.14 10*3/uL Normal 0.00 - 0.40 [facility] Comment on above: Performed By: #### C BCDF ####[address] [id number] Eosinophils/100 WBC (Bld) 1.7 % Normal 0.0 - 6.0 [facility] Comment on above: Performed By: #### C BCDF ####[address] [id number] Erythrocyte distribution width (RBC) [Ratio] 12.7 % Normal 11.5 - 14.5 [facility] Comment on above: Performed By: #### C BCDF ####[facility] [place], [place] [id number] Hematocrit (Bld) [Volume fraction] 37.5 % Low 41.0 - 52.0 [facility] Comment on above: Performed By: #### C BCDF ####[address] [place], [place] [id number] Hemoglobin (Bld) [Mass/Vol] 12.6 g/dL Low 13.5 - 17.5 [facility] Comment on above: Performed By: #### C BCDF ####[address] [place], [place] [id number] Lymphocytes (Bld) [#/Vol] 0.71 10*3/uL Low 0.80 - 3.00 [facility] Comment on above: Performed By: #### C BCDF ####[address] [id number] Lymphocytes/100 WBC (Bld) 8.8 % Normal 13.0 - 44.0 [facility] Comment on above: Performed By: #### C BCDF ####[address] [id number] MCHC (RBC) [Mass/Vol] 33.6 g/dL Normal 32.0 - 36.0 [facility] Comment on above: Performed By: #### C BCDF ####[address] [id number] MCV (RBC) [Entitic vol] 94 fL Normal 80 - 100 [facility] Comment on above: Performed By: #### C BCDF ####[address] [id number] Monocytes (Bld) [#/Vol] 0.48 10*3/uL Normal 0.05 - 0.80 [facility] Comment on above: Performed By: #### C BCDF ####[address] [id number] Monocytes/100 WBC (Bld) 6.0 % Normal 2.0 - 10.0 [facility] Comment on above: Performed By: #### C BCDF ####[address] [place], [place] [id number] Neutrophils (Bld) [#/Vol] 6.65 10*3/uL High 1.60 - 5.50 [facility] Comment on above: Performed By: #### C BCDF ####[address] [id number] Neutrophils/100 WBC (Bld) 82.8 % Normal 40.0 - 80.0 [facility] Comment on above: Performed By: #### C BCDF ####[address] [id number] Platelets (Bld) [#/Vol] 232 10*3/uL Normal 150 - 450 [facility] Comment on above: Performed By: #### C BCDF ####[address] [id number] RBC 3.99 x10E12/L Low 4.50 - 5.90 [facility] Comment on above: Performed By: #### C BCDF ####[address] [id number] WBC (Bld) [#/Vol] 8.0 10*3/uL Normal 4.4 - 11.3 [facility] Comment on above: Performed By: #### C BCDF ####[address] [id number] COMPREHENSIVE PANELon 2022 Albumin [Mass/Vol] 3.1 g/dL Low 3.4 - 5.0 [facility] Comment on above: Performed By: #### C MP ####[address] [id number] ALP [Catalytic activity/Vol] 48 U/L Normal 33 - 136 [facility] Comment on above: Performed By: #### C MP ####[address], [place] [id number] ALT [Catalytic activity/Vol] 52 U/L Normal 10 - 52 [facility] Comment on above: Result Comment: Sarah ents treated with Sulfasalazine may generate falsely decreased results for ALT. Performed By: #### C MP ####[facility] [place] [id number] Anion gap [Moles/Vol] 11 mmol/L Normal 10 - 20 [facility] Comment on above: Performed By: #### C MP ####[facility] [place] [id number] AST [Catalytic activity/Vol] 29 U/L Normal 9 - 39 [facility] Comment on above: Performed By: #### C MP ####[address] [id number] Bilirubin [Mass/Vol] 0.3 mg/dL Normal 0.0 - 1.2 [facility] Comment on above: Performed By: #### C MP ####[address] [id number] Calcium [Mass/Vol] 8.5 mg/dL Low 8.6 - 10.3 [facility] Comment on above: Performed By: #### C MP ####[address] [id number] Chloride [Moles/Vol] 109 mmol/L High 98 - 107 [facility] Comment on above: Performed By: #### C MP ####[address] [id number] Creatinine [Mass/Vol] 0.85 mg/dL Normal 0.50 - 1.30 [facility] Comment on above: Performed By: #### C MP ####[address] [id number] eGFR MALE >90 Normal >90 [facility] Comment on above: Result Comment: CALC ULATIONS OF ESTIMATED GFR ARE PERFORMED USING THE 2020 CKD-EPI STUDY REFIT EQUATION WITHOUT THE RACE VARIABLE FOR THE IDMS-TRACEABLE CREATININE METHODS. https://jasn.asnjournals.org/content//ASN.0239755 988 Performed By: #### C MP ####[address] [id number] Glucose [Mass/Vol] 101 mg/dL High 74 - 99 [facility] Comment on above: Performed By: #### C MP ####[address] [place], [place] [id number] HCO3 (Bld) [Moles/Vol] 24 mmol/L Normal 21 - 32 [facility] Comment on above: Performed By: #### C MP ####[address] [place], [place] [id number] Potassium [Moles/Vol] 4.5 mmol/L Normal 3.5 - 5.3 [facility] Comment on above: Performed By: #### C MP ####[address] [id number] Protein [Mass/Vol] 5.9 g/dL Low 6.4 - 8.2 [facility] Comment on above: Performed By: #### C MP ####[address] [id number] Sodium [Moles/Vol] 139 mmol/L Normal 136 - 145 [facility] Comment on above: Performed By: #### C MP ####[address] [place], [place] [id number] Urea nitrogen [Mass/Vol] 29 mg/dL High 6 - 23 [facility] Comment on above: Performed By: #### C MP ####[address] [id number] Complete Blood Count + Diffe rentialon 10-23-2022 Basophils/100 WBC (Bld) 0.5 % 0.0 - 2.0 [facility] Work Phone: Erythrocyte distribution width (RBC) [Ratio] 12.7 % See Below [facility] [place] Work Phone: [phone] Comment on above: Reference Range: 11. 5 - 14.5 Hematocrit (Bld) [Volume fraction] 37.5 % below low threshold See Below [facility] [place] Work Phone: [phone] Comment on above: Reference Range: 41. 0 - 52.0 Hemoglobin (Bld) [Mass/Vol] 12.6 g/dL below low threshold See Below [facility] [place] Work Phone: [phone] Comment on above: Reference Range: 13. 5 - 17.5 Lymphocytes/100 WBC (Bld) 8.8 % See Below [facility] Work Phone: [phone] Comment on above: Reference Range: 13. 0 - 44.0 MCHC (RBC) [Mass/Vol] 33.6 g/dL See Below [facility] Work Phone: [phone] Comment on above: Reference Range: 32. 0 - 36.0 MCV (RBC) [Entitic vol] 94 fL 80 - 100 [facility] Work Phone: [phone] Monocytes/100 WBC (Bld) 6.0 % 2.0 - 10.0 [facility] Work Phone: [phone] Neutrophils/100 WBC (Bld) 82.8 % See Below [facility] Work Phone: [phone] Comment on above: Reference Range: 40. 0 - 80.0 Platelets (Bld) [#/Vol] 232 10*3/uL 150 - 450 [facility] Work Phone: [phone] RBC (Bld) [#/Vol] 3.99 {x10E12/L} below low threshold See Below [facility] Work Phone: [phone] Comment on above: Reference Range: 4.5 0 - 5.90 WBC (Bld) [#/Vol] 8.0 10*3/uL 4.4 - 11.3 [facility] Work Phone: Complete Blood Count + Differential 0.04 {x10E9/L} See Below [facility] Work Phone: Comment on above: Reference Range: 0.0 0 - 0.10 Complete Blood Count + Differential 0.14 {x10E9/L} See Below [facility] Work Phone: Comment on above: Reference Range: 0.0 0 - 0.40 Complete Blood Count + Differential 0.48 {x10E9/L} See Below [facility] Work Phone: Comment on above: Reference Range: 0.0 5 - 0.80 Complete Blood Count + Differential 0.71 {x10E9/L} below low threshold See Below [facility] Work Phone: Comment on above: Reference Range: 0.8 0 - 3.00 Complete Blood Count + Differential 6.65 {x10E9/L} above high threshold See Below [facility] Work Phone: Comment on above: Reference Range: 1.6 0 - 5.50 Complete Blood Count + Differential 1.7 % 0.0 - 6.0 [facility] Work Phone: [phone] Complete Blood Count + Differential 0.2 % 0.0 - 0.9 [facility] Work Phone: [phone] Comment on above: Immature Granulocyte Count (IG) [...] penicillin: Rash Objective: Objective Information: T PRBPMAPSpO2 [id number]/515112% Date/Time10/23 7:6 7: 12:301/6 7:401/6 7:401/6 7:40 [...] Count 0.04 Comprehensive Metabolic Panel Trending View [id number] 05:42:00 22-Oct-2022 05:50:00 Glucose, [id number] H 144 H NA139 138 K4.5 4.2 [...] other possibl (more content not included)... Normal [facility] Daily Progress Note-Cardiolo trevon 10-23-2022 Daily Progress Note-Cardiology Consult Type: subsequent visit/care Service: Cardiology Subjective Data: TAN LASSITER is a 71 year old Male who is Hospital Day # 2. 10/22/2022 cardiology consult: HPI: TAN LASSITER is a 71 year old Male who is hearing impaired was transferred from [facility] to [facility] on 10/22/2022 after presenting to [facility] emergency department with chief complaint of chest pain. Patient has history of deafness/hearing impairment and history of remote cochlear implant, he reads lips for communication. No family is present at time of cardiology consult. Information for consult obtained from speaking to patient and from review of paperwork sent from [facility] ED. 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 Yesterday he was getting ready to go to [employer] for a [employer] study and had sudden [...] Portable chest x-ray showed clear lungs. In [place] emergency room patient was given Tylenol, aspirin, IV Cardizem, subcutaneous Lovenox, IV steroids, morphine, Zofran, IV fluids, and nebulizer. He converted to sinus rhythm. He was transferred to [facility] for further evaluation. This morning at time [...] cancer, denies having any current cardiology care. [facility] heart cardiology consult was placed for evaluation [...] at times, former tobacco use listed as [id number] history patient states that he quit smoking [...] PSVT Objective Data: Objective Information: T PRBPMAPSpO2 [id number]/815273% Date/Time10/23 7: 7: 12: 7: 7: 7:40 Range(36.2C - 37C ) (65 - 82 ) (14 - 18 ) (97 - 137 )/ (51 - 71 ) (72 - 96 ) (93% - 97% ) As of 22-Oct-2022 21:23:00, patient is on 3 L/min of oxygen via nasal cannula. Highest temp of 37 C was recorded at (more content not included)... Normal [facility] Daily Progress Note-General Internal Medicineon 10-23-2022 Daily [...] breath. Objective Data: Objective Information: T PRBPMAPSpO2 [id number]/[id number]% Date/Time10/23 7: 7: 12: 7: 7: 7:40 [...] Updated: 23-Oct-2022 11:16 by Ricardo Myers) Normal [facility] Discharge [id number] Discharge Profile2 Discharge Orders: Anticipated Discharge Date: Anticipated Discharge [id number] DNAR: Code Status at Discharge: Full Code Provider FINAL REVIEW of Orders: Final Review: Final Review of Medication Reconciliation and Orders Completedby Physician Reviewing ProviderFeng Winston MD at 25-Oct-2022 10:39:39 Appointments: Follow-Up Appointment 02: Physician/Dept/Qzgcaau68-mvk event monitor Reason for ReferralMonitor heart rhythm Call to Schedule inPlease call the office on Wednesday to schedule these appointments [facility] in [place] Phone [phone] Follow-Up Appointment 03: Physician/Dept/ServiceDr. Everett- [employer] Consultant Reason for Referraldiscuss report of event monitor [facility] office in [place] Electronic Signatures: Jaylin Gerard (SURVEY METHODOLOGIST-[employer] BUSINESS ANALYST) (Signed 23-Oct-2022 14:53) Authored: Discharge Orders, Appointments, Gold Form - [employer] Switchboard Operator Summary Feng Winston) (Signed 25-Oct-2022 10:39) Authored: Discharge Orders, Provider FINAL REVIEW of Orders Last Updated: 25-Oct-2022 10:39 by Feng Winston) Normal [facility] HEMOGLOBIN A1Con 10-23-2022 Glucose [Mass/Vol] 103 mg/dL Normal [facility] Comment on above: Performed By: #### H BA1E ####[id number] [place] [address] HbA1c (Bld) [Mass fraction] 5.2 % Normal [facility] Comment on above: Result Comment: Diag nosis of Diabetes-Adults Non-Diabetic: < or = 5.6% Increased risk for developing diabetes: 5.7-6.4% Diagnostic of diabetes: > or = 6.5% . Monitoring of Diabetes Age (y) Therapeutic Goal (%) Adults: >18 <7.0 Pediatrics: 13-18 <7.5 7-12 <8.0 0- 6 7.5-8.5 [employer]. Diabetes Care 33(S1), Oct 2009. Performed By: #### H BA1E ####[id number] [place] [address] Hemoglobin A1Con 10-23-2022 Glucose [Mass/Vol] 103 mg/dL [facility] Work Phone: HbA1c (Bld) [Mass fraction] 5.2 % [facility] Work Phone: Comment on above: Diagnosis of Diabete s-Adults Non-Diabetic: < or = 5.6% Increased risk for developing diabetes: 5.7-6.4% Diagnostic of diabetes: > or = 6.5%. Monitoring of Diabetes Age (y) Therapeutic Goal (%) Adults: >18 <7.0 Pediatrics: 13-18 <7.5 7-12 <8.0 0- 6 7.5-8.5 [employer]. Diabetes Care 33(S1), Oct 2009. LIPID PANEL (CORONARY RISK 2 )on 10-23-2022 Cholesterol [Mass/Vol] 129 mg/dL Normal 0 - 199 [facility] Comment on above: Result Comment: . AGE [...] Metamizole dosing. Performed By: #### L IPID ####[address] [place], [place] [id number] Cholesterol in HDL [Mass/Vol] 36.8 mg/dL Abnormal [facility] Comment on above: Result Comment: . AGE VERY LOW LOW NORMAL HIGH 0-19 Y < 35 < 40 40-45 ---- 20-24 Y ---- < 40 >45 ---- >24 Y ---- < 40 40-60 >60 . Performed By: #### L IPID ####[address] [id number] Cholesterol in LDL [Mass/Vol] 77 mg/dL Normal 0 - 99 [facility] Comment on above: Result Comment: . NEAR BORD AGE DESIRABLE OPTIMAL HIGH HIGH VERY HIGH 0-19 Y 0 - 109 --- 110-129 >/= 130 ---- 20-24 Y 0 - 119 --- 120-159 >/= 160 ---- >24 Y 0 - 99 100-129 130-159 160-189 >/=190 . Performed By: #### L IPID ####[address] [id number] Cholesterol in VLDL [Mass/Vol] 15 mg/dL Normal 0 - 40 [facility] Comment on above: Performed By: #### L IPID ####[address] [place], [place] [id number] Cholesterol.total/Ch olesterol in HDL [Mass ratio] 3.5 {ratio} Normal [facility] Comment on above: Result Comment: REF VALUES DESIRABLE < 3.4 HIGH RISK > 5.0 Performed By: #### L IPID ####[address] [id number] Triglyceride [Mass/Vol] 74 mg/dL Normal 0 - 149 [facility] Comment on above: Result Comment: . AGE [...] Metamizole dosing. Performed By: #### L IPID ####[facility] [place], [place] [id number] Laboratory - Chemistry and C hemistry - challengeon 10-23-2022 Albumin BCP dye [Mass/Vol] 3.1 g/dL below low threshold 3.4 - 5.0 [facility] Work Phone: [phone] ALP [Catalytic activity/Vol] 48 U/L 33 - 136 [facility] Work Phone: [phone] ALT With P-5'-P [Catalytic activity/Vol] 52 U/L 10 - 52 [facility] Work Phone: [phone] Comment on above: Patients treated wit h Sulfasalazine may generate falsely decreased results for ALT. Anion gap [Moles/Vol] 11 mmol/L 10 - 20 [facility] Work Phone: [phone] AST With P-5'-P [Catalytic activity/Vol] 29 U/L 9 - 39 [facility] Work Phone: [phone] Bilirubin [Mass/Vol] 0.3 mg/dL 0.0 - 1.2 [facility] Work Phone: [phone] Calcium [Mass/Vol] 8.5 mg/dL below low threshold 8.6 - 10.3 [facility] Work Phone: [phone] Chloride [Moles/Vol] 109 mmol/L above high threshold 98 - 107 [facility] Work Phone: [phone] CO2 [Moles/Vol] 24 mmol/L 21 - 32 [facility] Work Phone: [phone] Creatinine [Mass/Vol] 0.85 mg/dL See Below [facility] Work Phone: [phone] Comment on above: Reference Range: 0.5 0 - 1.30 Glucose [Mass/Vol] 101 mg/dL above high threshold 74 - 99 [facility] Work Phone: [phone] Natriuretic peptide B (Bld) [Mass/Vol] 284 pg/mL above high threshold 0 - 99 [facility] Work Phone: [phone] Comment on above: . <100 pg/mL - Heart failure [id number] pg/mL - Intermediate probability of acute heart. failure exacerbation. Correlate with clinical. context and patient history. >=300 pg/mL - Heart Failure likely. Correlate with clinical. context and patient history.BNP testing is performed using different testing methodology at [facility] than at other [facility]. Direct result comparisons should only be made within the same method. Potassium [Moles/Vol] 4.5 mmol/L 3.5 - 5.3 [facility] Work Phone: [phone] Protein [Mass/Vol] 5.9 g/dL below low threshold 6.4 - 8.2 [facility] Work Phone: [phone] Sodium [Moles/Vol] 139 mmol/L 136 - 145 [facility] Work Phone: [phone] Urea nitrogen [Mass/Vol] 29 mg/dL above high threshold 6 - 23 [facility] Work Phone: [phone] Lipid Panelon 10-23-2022 Cholesterol [Mass/Vol] 129 mg/dL 0 - 199 [facility] Work Phone: [phone] Comment on above: . AGE DESIRABLE BORD [...] Cholesterol in HDL [Mass/Vol] 36.8 mg/dL Abnormal [facility] Work Phone: Comment on above: . AGE VERY LOW LOW N ORMAL HIGH 0-19 Y < 35 < 40 40-45 ---- 20- 24 Y ---- < 40 >45 ---- >24 Y ---- < 40 40-60 >60. Cholesterol in LDL [Mass/Vol] 77 mg/dL 0 - 99 [facility] Work Phone: Comment on above: . NEAR BORD AGE JERED RABLE OPTIMAL HIGH HIGH VERY HIGH 0-19 Y 0 - 109 --- 110-129 >/= 130 ---- 20-24 Y 0 - 119 --- 120-159 >/= 160 ---- >24 Y 0 - 99 100-129 130-159 160-189 >/=190. Cholesterol.total/Ch olesterol in HDL [Mass ratio] 3.5 {ratio} [facility] Work Phone: Comment on above: REF VALUESDESIRABLE < 3.4HIGH RISK > 5.0 Triglyceride [Mass/Vol] 74 mg/dL 0 - 149 [facility] Work Phone: Comment on above: . AGE [...] Lipid Panel 15 mg/dL 0 - 40 [facility] Work Phone: MAGNESIUMon 10-23-2022 Magnesium [Mass/Vol] 2.12 mg/dL Normal 1.60 - 2.40 [facility] Comment on above: Performed By: #### M G ####[facility] [place], [place] [id number] Magnesium, Serumon Magnesium [Mass/Vol] 2.12 mg/dL See Below [facility] Work Phone: Comment on above: Reference Range: 1.6 0 - 2.40 No Panel Informationon 10-23 >90 >90 [facility] Work Phone: Comment on above: CALCULATIONS OF SILVIANO MATED GFR ARE PERFORMED USING THE 2020 CKD-EPI STUDY REFIT EQUATION WITHOUT THE RACE VARIABLE FOR THE IDMS-TRACEABLE CREATININE METHODS.https://jasn.asnjournals.org/content//ASN .8605247190 Order Reconciliationon 10-23 Order Reconciliation Page 1 Discharge Reconciliation Document Reconciliation Type: Discharge requested on behalf of Feng Winston (Physician) done by Feng Winston) Discharge - Partial Reconciliation: 23-Oct-2022 13:41 by: Jaylin Gerard (SURVEY METHODOLOGIST-[employer] BUSINESS ANALYST) Discharge - Reconciliation: 25-Oct-2022 10:41 by: Feng [...] 200 mcg-62.5 mcg-25 mcg/inh inhalation powder [facility] DateReconciliation Comment/ Additional [...] 1 puff(s) inhaled once a day Normal [facility] T3 - Free Triiodothyronine, Serumon 10-23-2022 Free T3 [Mass/Vol] 2.3 pg/mL 2.3 - 4.2 [facility] Work Phone: TRIIODOTHYRONINE,FREEon TRIIODOTHYRONINE,MAIE E 2.3 pg/mL Normal 2.3 - 4.2 [facility] Comment on above: Performed By: #### T 3FRE ####[id number] [place] [address] TROPONIN I, HIGH SENSITIVITY on 10-23-2022 TROPONIN I, HIGH SENSITIVITY 393 ng/L High 0 - 20 [facility] Comment on above: Result Comment: . Less [...] performed using a different testing methodology at [facility] than at other [facility]. Direct result comparisons should only be made within the same method. This is a critical result. Per Laboratory policy, critical results for this test only qualify to the call list once per 24 hours. Performed By: #### T [facility] [[email or web address]] ####[facility] [place], [place] [id number] Tropinin I.cardiac panel High sensitivity method 393 ng/L above high threshold 0 - 20 [facility] Work Phone: Comment on above: [...] performed using a different testing methodology at [facility] than at other [facility]. Direct result comparisons should only [...] AlertFor Ebola-like Symptoms: Isolate Patient and Notify Provider/Medical Observer For Contact: Notify Provider/Medical Observer Advance Directive: Advance Directive/DNRno Advance Directive Information [...] Learning Preferencesverbal instruction Cultural Considerationsnone Developmental Considerationsnone Pentecostal Considerationsnone Learning Assessment (Other Learner): Other learner availableno Depression Screen: During the past month, have you often been bothered by feeling down, depressed or hopelessno During the past month, have you often had little interest or pleasure in doing thingsno Have you had any thoughts of harming anyone elseno [place] Suicide: Risk Screen Not Applicable/Able to Answerable to be screened In the Past Month: Have you wished you were or could go to sleep and not wake upno In the Past Month: Have you had any actual thoughts of killing yourselfno Lifetime: Have you ever done, started to do, or prepared to do anything to end your lifeno [place] Suicide Risknegative Adult Nutrition Screen: Have you [...] = No (more content not included)... Normal [facility] BLOOD CULTURE, BACTERIALon 0 10-22-2022 BLOOD CULTURE, BACTERIAL PATIENT: TAN LASSITER LOCATION: [facility]#: [id number] : 46 AGE: SEX: M ORDERED BY: NALDO CASTILLO SOURCE: Blood COLLECTED: 10/22/22 06:37 ANTIBIOTICS AT [facility]ERTO.: RECEIVED : 10/22/22 13:58 SITE: PERIPHERAL R E S U L T S BLOOD CULTURE, BACTERIAL FINAL 10/26/22 15:42 No Growth at 1 days No Growth at 2 days No Growth at 3 days NO GROWTH at 4 days - FINAL REPORT Normal [facility] Comment on above: Performed By: #### B LDC ####[id number] [place] [address] BLOOD CULTURE, BACTERIAL PATIENT: TAN LASSITER LOCATION: [facility]#: [id number] : 46 AGE: SEX: M ORDERED BY: NALDO CASTILLO SOURCE: Blood COLLECTED: 10/22/22 06:37 ANTIBIOTICS AT ALBERTO.: RECEIVED : 10/22/22 13:58 SITE: PERIPHERAL R E S U L T S BLOOD CULTURE, BACTERIAL FINAL 10/26/22 15:42 No Growth at 1 days No Growth at 2 days No Growth at 3 days NO GROWTH at 4 days - FINAL REPORT Normal [facility] Comment on above: Performed By: #### B LDC ####[id number] [place] [address] BNPon 10-22-2022 Natriuretic peptide B (Bld) [Mass/Vol] 639 pg/mL High 0 - 99 [facility] Comment on above: Result Comment: . <1 00 pg/mL - Heart failure unlikely 100-299 pg/mL - Intermediate probability of acute heart . failure exacerbation. Correlate with clinical . context and patient history. >=300 pg/mL - Heart Failure likely. Correlate with clinical . context and patient history. BNP testing is performed using different testing methodology at [facility] than at other [facility]. Direct result comparisons should only be made within the same method. Performed By: #### B NP2 ####[facility] [place], [place] [id number] CBCon 10-22-2022 Erythrocyte distribution width (RBC) [Ratio] 12.4 % Normal 11.5 - 14.5 [facility] Comment on above: Performed By: #### C BC ####[facility] [place], [place] [id number] Hematocrit (Bld) [Volume fraction] 38.7 % Low 41.0 - 52.0 [facility] Comment on above: Performed By: #### C BC ####[facility] [place], [place] [id number] Hemoglobin (Bld) [Mass/Vol] 13.3 g/dL Low 13.5 - 17.5 [facility] Comment on above: Performed By: #### C BC ####[facility] [place], [place] [id number] MCHC (RBC) [Mass/Vol] 34.4 g/dL Normal 32.0 - 36.0 [facility] Comment on above: Performed By: #### C BC ####[facility] [place], [place] [id number] MCV (RBC) [Entitic vol] 91 fL Normal 80 - 100 [facility] Comment on above: Performed By: #### C BC ####[address] [place], [place] [id number] Platelets (Bld) [#/Vol] 263 10*3/uL Normal 150 - 450 [facility] Comment on above: Performed By: #### C BC ####[facility] [place], [place] [id number] RBC 4.23 x10E12/L Low 4.50 - 5.90 [facility] Comment on above: Performed By: #### C BC ####[address] [id number] WBC (Bld) [#/Vol] 15.3 10*3/uL High 4.4 - 11.3 [facility] Comment on above: Performed By: #### C BC ####[facility] [place] [id number] COMPREHENSIVE PANELon 2022 Albumin [Mass/Vol] 3.5 g/dL Normal 3.4 - 5.0 [facility] Comment on above: Performed By: #### C MP ####[facility] [place], [place] [id number] ALP [Catalytic activity/Vol] 58 U/L Normal 33 - 136 [facility] Comment on above: Performed By: #### C MP ####[address] [id number] ALT [Catalytic activity/Vol] 89 U/L High 10 - 52 [facility] Comment on above: Result Comment: Sarah ents treated with Sulfasalazine may generate falsely decreased results for ALT. Performed By: #### C MP ####[address] [id number] Anion gap [Moles/Vol] 10 mmol/L Normal 10 - 20 [facility] Comment on above: Performed By: #### C MP ####[address] [id number] AST [Catalytic activity/Vol] 86 U/L High 9 - 39 [facility] Comment on above: Performed By: #### C MP ####[address] [id number] Bilirubin [Mass/Vol] 0.4 mg/dL Normal 0.0 - 1.2 [facility] Comment on above: Performed By: #### C MP ####[address] [id number] Calcium [Mass/Vol] 8.6 mg/dL Normal 8.6 - 10.3 [facility] Comment on above: Performed By: #### C MP ####[address] [id number] Chloride [Moles/Vol] 108 mmol/L High 98 - 107 [facility] Comment on above: Performed By: #### C MP ####[address] [id number] Creatinine [Mass/Vol] 0.95 mg/dL Normal 0.50 - 1.30 [facility] Comment on above: Performed By: #### C MP ####[address] [id number] GFR/1.73 sq M.predicted among non-blacks MDRD (S/P/Bld) [Vol rate/Area] 84 mL/min/{1.73_m2} Normal >90 [facility] Comment on above: Result Comment: CALC ULATIONS OF ESTIMATED GFR ARE PERFORMED USING THE 2020 CKD-EPI STUDY REFIT EQUATION WITHOUT THE RACE VARIABLE FOR THE IDMS-TRACEABLE CREATININE METHODS. https://jasn.asnjournals.org/content//ASN.9857986 988 Performed By: #### C MP ####[address] [id number] Glucose [Mass/Vol] 144 mg/dL High 74 - 99 [facility] Comment on above: Performed By: #### C MP ####[address] [id number] HCO3 (Bld) [Moles/Vol] 24 mmol/L Normal 21 - 32 [facility] Comment on above: Performed By: #### C MP ####[address] [id number] Potassium [Moles/Vol] 4.2 mmol/L Normal 3.5 - 5.3 [facility] Comment on above: Performed By: #### C MP ####[address] [id number] Protein [Mass/Vol] 6.5 g/dL Normal 6.4 - 8.2 [facility] Comment on above: Performed By: #### C MP ####[address] [id number] Sodium [Moles/Vol] 138 mmol/L Normal 136 - 145 [facility] Comment on above: Performed By: #### C MP ####[address] [id number] Urea nitrogen [Mass/Vol] 22 mg/dL Normal 6 - 23 [facility] Comment on above: Performed By: #### C MP ####[address] [place] [id number] Clinical Event Noteon 2022 Clinical Event Note [...] Updated: 22-Oct-2022 15:53 by Ricardo Myers) Normal [facility] Clinical Event Note-Attempte d exam - Pt [...] 22-Oct-2022 12:43 by Janine Haq (MARCIE) Normal [facility] Consult-Cardiologyon 023 Consult-Cardiology Service: Service: Cardiology Consult: Consult requested by (Attending Name): Naldo Castillo Reason: NSTEMI History of Present Illness: HPI: TAN LASSITER is a 71 year old Male who is hearing impaired was transferred from [facility] to [facility] on 10/22/2022 after presenting to [facility] emergency department with chief complaint of chest pain. Patient has history of deafness/hearing impairment and history of remote cochlear implant, he reads lips for communication. No family is present at time of cardiology consult. Information for consult obtained from speaking to patient and from review of paperwork sent from [facility] ED. 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 Yesterday he was getting ready to go to [employer] for a [employer] study and had sudden [...] Portable chest x-ray showed clear lungs. In [place] emergency room patient was given Tylenol, aspirin, IV Cardizem, subcutaneous Lovenox, IV steroids, morphine, Zofran, IV fluids, and nebulizer. He converted to sinus rhythm. He was transferred to [facility] for further evaluation. This morning at time [...] cancer, denies having any current cardiology care. [facility] heart cardiology consult was placed for evaluation [...] at times, former tobacco use listed as [id number]-[id number] history patient states that he quit smoking [...] Exertion; NEGATIVE: (more content not included)... Normal [facility] Cult, Bloodon 10-22-2022 Bacteria identified Cx Nom (Bld) -[facility] Work Phone: Discharge Planning [id number] 0 10-22-2022 Discharge Planning Note2 Discharge Planning: [facility] < 20no Anticipated Discharge [id number] Discharge Planning 10/22/22 TCC NOTE: pt admitted from [facility] as NSTEMI and transferred to [facility]. Cardiology consulted. Rounded with nurse caring for patient , Pt underwent cardiac catheterization today. NO intervention , medical management recommended. I met with patient at bedside, introduced self and role to discuss dc planning needs and concerns. Pt resides at home alone, he is independent , uses no assistive devices. denies any DME needs. Pt is very [place] , states he reads lips only. Pt denies any needs at discharge. states family will transport him home at time of discharge. nursing am-pac . Assessment: Discharge Planning Assessment [id number] Discharge Planning Assessment Completed byKaylee Lewis RN TCC Primary Contact Name and Numberaunt Nataliia Mayorga [phone] Lives Withalone(1) Living Arrangementspt reports he lives alone in a 2 story home, 3 steps to enter with rails, bed and bath on 1st floor, has tub/shower.(2) Stated Reason for AdmissionPatient stated he woke up today in a cold sweat and chest was hurting, SOB started feeling tired, and was shaking (1) [place] PCPDaemilie Ledesma [facility] Resource/Environmental Concernsnone(1) [place] Services Anticipated at Transitionnon(1) Readmission Within the Last 30 Daysno previous admission in last 30 days Insuranceunited hc mycare Anticipated Changes Related to Illnessnone Equipment Needed After Dischar[place]one Anticipated Discharge Facility/Level of Care Needs.Home Medication Adherence/Afford/Obtainyes Electronic Signatures: Kaylee Lewis (BROADLOOM WEAVER) (Signed 22-Oct-2022 16:46) Authored: Discharge Planning, Assessment Last Updated: 22-Oct-2022 16:46 by Kaylee Lewis (BROADLOOM WEAVER) References: 1. Data Referenced From Patient Profile - Adult v2 22-Oct-2022 04:41 2. Data Referenced From OT Evaluation v2-occupational therapy 22-Oct-2022 13:06 Normal [facility] Echocardiogramon 10-22-2022 [address] [place] [address] TRANSTHORACIC ECHOCARDIOGRAM REPORT Patient Name: TAN Montes De Oca Physician: [id number] Vladislav Saldaña DO Study Date: 10/22/2022 Referring NALDO HOLDER Physician: AMERICA/PID: [id number] PCP: Accession/Order#: [id number] [facility] Echo Location: Lab Date of : 1950 Fellow: Gender: M Nurse: Judah Morataya RN Admit Date: 10/22/2022 Velvet Cutter: Christine Riddle [facility] Admission Status: Inpatient - Additional Staff: Routine Height: 180.00 cm CC Report to: [facility] Moreno Weight: 74.01 kg Study Type: Echocardiogram BSA: 1.93 m2 Blood Pressure: 101 /58 mmHg Diagnosis/ICD: R07.89-Other chest pain Indication: Chest Pain Procedure/CPT: Echo Complete w Full Doppler-[id number] Patient History: Pertinent History: Dyspnea, Chest Pain, [...] LA Area A2C: 12.4 cm2 LA Major [place] A4C: 4.5 cm LA Major [place] A2C: 4.6 cm LA Volume Index: 15.0 ml/m2 RA VOLUME BY A/L METHOD: Normal Ranges: RA Vol A4C: 42.9 ml (8.3-19.5ml) RA Vol Index A4C: 22.2 ml/m2 RA Area A4C: 15.4 cm2 RA Major [place] A4C: 4.7 cm M-MODE MEASUREMENTS: Normal Ranges: [...] LVOT Diameter: (more content not included)... Normal [facility] Electrocardiogram 12 Leadon 10-22-2022 Electrocardiogram 12 Lead Ventricular Rate 65 Atrial Rate 65 P-R Interval 164 QRS Duration 78 Q-T Interval 504 QTC Calculation(Bazett) 524 P [place] 72 R [place] 71 T [place] 72 QRS Count 11 Q Onset 222 P Onset 140 P Offset 193 T Offset 474 QTC Fredericia 517 Diagnosis Class Abnormal Diagnosis Normal sinus rhythm Prolonged QT Abnormal ECG No previous ECGs available Confirmed by Vladislav Perez ([id number]) on 10/26/2022 5:26:20 PM Normal [facility] HEMOGLOBIN A1Con 10-22-2022 Glucose [Mass/Vol] 100 mg/dL Normal [facility] Comment on above: Performed By: #### H BA1E ####[id number] [place] [address] HbA1c (Bld) [Mass fraction] 5.1 % Normal [facility] Comment on above: Result Comment: Diag nosis of Diabetes-Adults Non-Diabetic: < or = 5.6% Increased risk for developing diabetes: 5.7-6.4% Diagnostic of diabetes: > or = 6.5% . Monitoring of Diabetes Age (y) Therapeutic Goal (%) Adults: >18 <7.0 Pediatrics: 13-18 <7.5 7-12 <8.0 0- 6 7.5-8.5 [employer]. Diabetes Care 33(S1), Oct 2009. Performed By: #### H BA1E ####[id number] [place] [address] Hemoglobin A1Con 10-22-2022 Glucose [Mass/Vol] 100 mg/dL [facility] Work Phone: HbA1c (Bld) [Mass fraction] 5.1 % [facility] Work Phone: Comment on above: Diagnosis of Diabete s-Adults Non-Diabetic: < or = 5.6% Increased risk for developing diabetes: 5.7-6.4% Diagnostic of diabetes: > or = 6.5%. Monitoring of Diabetes Age (y) Therapeutic Goal (%) Adults: >18 <7.0 Pediatrics: 13-18 <7.5 7-12 <8.0 0- 6 7.5-8.5 [employer]. Diabetes Care 33(S1), Oct 2009. LACTATE/LACTIC ACIDon 2022 Lactate [Moles/Vol] 1.0 mmol/L Normal 0.4-1.9 [facility] Comment on above: Performed By: #### L ACT #### [facility] [address] [address] [address] Wyatt Leger LIPID PANEL (CORONARY RISK 2 )on 10-22-2022 Cholesterol [Mass/Vol] 134 mg/dL Normal 0 - 199 [facility] Comment on above: Result Comment: . AGE [...] Metamizole dosing. Performed By: #### L IPID ####[address] [place], [place] [id number] Cholesterol in HDL [Mass/Vol] 39.2 mg/dL Abnormal [facility] Comment on above: Result Comment: . AGE VERY LOW LOW NORMAL HIGH 0-19 Y < 35 < 40 40-45 ---- 20-24 Y ---- < 40 >45 ---- >24 Y ---- < 40 40-60 >60 . Performed By: #### L IPID ####[address] [place], [place] [id number] Cholesterol in LDL [Mass/Vol] 87 mg/dL Normal 0 - 99 [facility] Comment on above: Result Comment: . NEAR BORD AGE DESIRABLE OPTIMAL HIGH HIGH VERY HIGH 0-19 Y 0 - 109 --- 110-129 >/= 130 ---- 20-24 Y 0 - 119 --- 120-159 >/= 160 ---- >24 Y 0 - 99 100-129 130-159 160-189 >/=190 . Performed By: #### L IPID ####[address] [id number] Cholesterol in VLDL [Mass/Vol] 8 mg/dL Normal 0 - 40 [facility] Comment on above: Performed By: #### L IPID ####[address] [place], [place] [id number] Cholesterol.total/Ch olesterol in HDL [Mass ratio] 3.4 {ratio} Normal [facility] Comment on above: Result Comment: REF VALUES DESIRABLE < 3.4 HIGH RISK > 5.0 Performed By: #### L IPID ####[address] [id number] Triglyceride [Mass/Vol] 41 mg/dL Normal 0 - 149 [facility] Comment on above: Result Comment: . AGE [...] Metamizole dosing. Performed By: #### L IPID ####[facility] [place], [place] [id number] Laboratory - Chemistry and C hemistry - challengeon 10-22-2022 Albumin BCP dye [Mass/Vol] 3.5 g/dL 3.4 - 5.0 [facility] Work Phone: [phone] ALP [Catalytic activity/Vol] 58 U/L 33 - 136 [facility] Work Phone: [phone] ALT With P-5'-P [Catalytic activity/Vol] 89 U/L above high threshold 10 - 52 [facility] Work Phone: [phone] Comment on above: Patients treated wit h Sulfasalazine may generate falsely decreased results for ALT. Anion gap [Moles/Vol] 10 mmol/L 10 - 20 [facility] Work Phone: [phone] AST With P-5'-P [Catalytic activity/Vol] 86 U/L above high threshold 9 - 39 [facility] Work Phone: [phone] Bilirubin [Mass/Vol] 0.4 mg/dL 0.0 - 1.2 [facility] Work Phone: [phone] Calcium [Mass/Vol] 8.6 mg/dL 8.6 - 10.3 [facility] Work Phone: [phone] Chloride [Moles/Vol] 108 mmol/L above high threshold 98 - 107 [facility] Work Phone: [phone] CO2 [Moles/Vol] 24 mmol/L 21 - 32 [facility] Work Phone: [phone] Creatinine [Mass/Vol] 0.95 mg/dL See Below [facility] Work Phone: [phone] Comment on above: Reference Range: 0.5 0 - 1.30 Glucose [Mass/Vol] 144 mg/dL above high threshold 74 - 99 [facility] Work Phone: [phone] Natriuretic peptide B (Bld) [Mass/Vol] 639 pg/mL above high threshold 0 - 99 [facility] Work Phone: [phone] Comment on above: . <100 pg/mL - Heart failure oieufkgx705-222 pg/mL - Intermediate probability of acute heart. failure exacerbation. Correlate with clinical. context and patient history. >=300 pg/mL - Heart Failure likely. Correlate with clinical. context and patient history.BNP testing is performed using different testing methodology at [facility] than at other [facility]. Direct result comparisons should only be made within the same method. Potassium [Moles/Vol] 4.2 mmol/L 3.5 - 5.3 [facility] Work Phone: [phone] Protein [Mass/Vol] 6.5 g/dL 6.4 - 8.2 [facility] Work Phone: [phone] Sodium [Moles/Vol] 138 mmol/L 136 - 145 [facility] Work Phone: [phone] Urea nitrogen [Mass/Vol] 22 mg/dL 6 - 23 [facility] Work Phone: [phone] Laboratory - Hematology and Cell countson 10-22-2022 Erythrocyte distribution width (RBC) [Ratio] 12.4 % See Below [facility] Work Phone: [phone] Comment on above: Reference Range: 11. 5 - 14.5 Hematocrit (Bld) [Volume fraction] 38.7 % below low threshold See Below [facility] Work Phone: Comment on above: Reference Range: 41. 0 - 52.0 Hemoglobin (Bld) [Mass/Vol] 13.3 g/dL below low threshold See Below [facility] Work Phone: Comment on above: Reference Range: 13. 5 - 17.5 MCHC (RBC) [Mass/Vol] 34.4 g/dL See Below [facility] Work Phone: Comment on above: Reference Range: 32. 0 - 36.0 MCV (RBC) [Entitic vol] 91 fL 80 - 100 [facility] Work Phone: [phone] Platelets (Bld) [#/Vol] 263 10*3/uL 150 - 450 [facility] Work Phone: RBC (Bld) [#/Vol] 4.23 {x10E12/L} below low threshold See Below [facility] Work Phone: Comment on above: Reference Range: 4.5 0 - 5.90 WBC (Bld) [#/Vol] 15.3 10*3/uL above high threshold 4.4 - 11.3 [facility] Work Phone: Left Heart Catheterizationon 10-22-2022 Left Heart Catheterization [facility] [employer] [address] [place] [address] Cardiovascular Catheterization Report Patient Name: TAN LASSITER Performing [id number] Arya Pineda Physician: Study Date: 10/22/2022 Verifying Physician: [id number] Pineda MD MRN/PID: [id number] [employer] Consultant: Accession/Order#: [id number] Referring Physician: JAYLIN GERARD Date of : [...] a modified Seldinger technique. Subsequently a 5 Green[place]ic sheath was placed in the right femoral [...] + 10/22/2022 11:26:35 AM {Sheath} - 5F [place] Sheath w/ Wire - Qty: 1 Part [...] pad - Qty: 1 Each Part #: [id number] + +------ + 10/22/2022 11:39:59 AM {Closure Device} - 5F Vascade Closure Device - Qty: 1 Each Part #: [id number] + +------ + + + Contrast: + + Omnipaque: (more content not included)... Normal [facility] Lipid Panelon 10-22-2022 Cholesterol [Mass/Vol] 134 mg/dL 0 - 199 -[facility] Work Phone: Comment on above: . AGE [...] Cholesterol in HDL [Mass/Vol] 39.2 mg/dL Abnormal [facility] Work Phone: Comment on above: . AGE VERY LOW LOW N ORMAL HIGH 0-19 Y < 35 < 40 40-45 ---- 20- 24 Y ---- < 40 >45 ---- >24 Y ---- < 40 40-60 >60. Cholesterol in LDL [Mass/Vol] 87 mg/dL 0 - 99 [facility] [place] Work Phone: Comment on above: . NEAR BORD AGE JERED RABLE OPTIMAL HIGH HIGH VERY HIGH 0-19 Y 0 - 109 --- 110-129 >/= 130 ---- 20-24 Y 0 - 119 --- 120-159 >/= 160 ---- >24 Y 0 - 99 100-129 130-159 160-189 >/=190. Cholesterol.total/Ch olesterol in HDL [Mass ratio] 3.4 {ratio} [facility] [place] Work Phone: Comment on above: REF VALUESDESIRABLE < 3.4HIGH RISK > 5.0 Triglyceride [Mass/Vol] 41 mg/dL 0 - 149 [facility] [place] Work Phone: Comment on above: . [...] Lipid Panel 8 mg/dL 0 - 40 [facility] Work Phone: MAGNESIUMon 10-22-2022 Magnesium [Mass/Vol] 2.13 mg/dL Normal 1.60 - 2.40 [facility] Comment on above: Performed By: #### M G ####[facility] [place], [place] [id number] Magnesium, Serumon Magnesium [Mass/Vol] 2.13 mg/dL See Below [facility] Work Phone: Comment on above: Reference Range: 1.6 0 - 2.40 No Panel Informationon 10-22 [facility] Work Phone: 84 {mL/min/1.73m2} >90 [facility] Work Phone: [phone] Comment on above: CALCULATIONS OF SILVIANO MATED GFR ARE PERFORMED USING THE 2020 CKD-EPI STUDY REFIT EQUATION WITHOUT THE RACE VARIABLE FOR THE IDMS-TRACEABLE CREATININE METHODS.https://jasn.asnjournals.org/content/early/ASN .5343531458 https://MUSEXPRDWE B01:8080 /musescripts/museweb.dll?Ret rieveTestByDateTime?PatientI F=[id number]&Date=02-15-2023& Time=05%3a27%3a58%3a00&TestT ype=ECG&Site=11&OutputType=P DF&Ext=PDF [facility] [place] [facility] DO Work Phone: [phone] Normal sinus rhythm [facility] [employer] [place] [address] DO Work Phone: [phone] Abnormal [facility] [place] [facility] DO Work Phone: [phone] [facility] [facility] [address] DO Work Phone: [phone] [facility] [place] [address] DO Work Phone: [phone] [facility] [place] [facility] DO Work Phone: [phone] [facility] [place] [facility] DO Work Phone: [phone] [facility] [place] [facility] DO Work Phone: [phone] [facility] [place] [facility] DO Work Phone: [phone] [facility] [place] [facility] DO Work Phone: [phone] [facility] [place] [facility] DO Work Phone: [phone] [facility] [place] [facility] DO Work Phone: [phone] [facility] [place] [facility] DO Work Phone: [phone] [facility] [place] [facility] DO Work Phone: [phone] [facility] [place] [facility] DO Work Phone: [phone] [facility] [place] [facility] DO Work Phone: OT Evaluation v2-occupationa l therapyon 10-22-2022 OT Evaluation v2-occupational therapy Rehab: Info: Mode of Treatmentoccupational therapy Time IN09:51 Time OUT10:01 Total Treatment [id number] Patient in ... 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 Pertinent History of Current Functional Problempt is a 71 yo male transferred [place] [facility] for cardiac evaluation . pt with [...] - Previous Level of Functionindependent; has dog Mirriad and reports lifting 50# bags of food [...] Assessment/Interventionssupi ne to sit; sit to supine Qpvnwj-ww-Iwv [place] (Bed Mobility)modified independence Ajv-ao-Uvzkya [place] (Bed Mobility)modified independence Transfer Assessment/Interventionssit to stand transfer; stand to sit transfer; toilet transfer Comment, TransfersMod Independent without AD ADL: BADL Assessment/Interventionbathi ng; upper body dressing; lower body dressing; clothing fastener management; grooming; toileting [place] Level (Bathing)modified independence [place] Level (Upper Body Dressing)independent [place] Level (Lower Body Dressing)modified independence [place] Level (Clothes Fastener Management)modified independence [place] Level (Grooming)modified independence [place] Level (Toileting)modified independence Impairments, BADL Safety/Performanceincreased time with generalized weakness; reports poor night sleep with transfer to hospital Motor: Sitting, Static (Balance)normal balance Sitting, Dynamic (Balance)normal balance Jij-hd-Sdwwl (Balance)normal balance Standing, Static (Balance)normal balance Standing, [...] 22-Oct-2022 13:18 by Vicky Tony (OT) Normal [facility] Order Reconciliationon 10-22 Order Reconciliation Page 1 Admission Reconciliation Document Reconciliation Type: Admission requested on behalf of Naldo Castillo (Physician) done by Naldo Castillo) Admission [...] Injectable DOSE = 0.5 mL IntraVenous Push OnceCa.235758 mL/Kg/DOSE x 74.8 Kg = 0.5 mL/Dose [...] Every 8 Hours and as Needed [facility] PHOSPHORUSon 10-22-2022 Phosphate [Mass/Vol] 3.6 mg/dL Normal 2.5 - 4.9 [facility] Comment on above: Result Comment: The performance characteristics of phosphorus testing in heparinized plasma have been validated by the individual laboratory site where testing is performed. Testing on heparinized plasma is not approved by the FDA; however, such approval is not necessary. Performed By: #### P HOS ####[facility] [place], [place] [id number] PT Evaluation v2-physical th erapyon 10-22-2022 PT Evaluation v2-physical therapy Rehab: Info: Mode of Treatmentphysical therapy Time IN09:51 Time OUT10:01 Total Treatment Minutes0 Patient in ... at end of sessionpt in bed on alarm with head of bed elevated Patient Effortgood Symptoms Noted During/After Treatmentnone Patient Profile Reviewedyes Onset of Illness/Injury or Date of [id number]-[id number] Reason for Referralimpaired mobility Referring PhysicianOT/PT 10/22 [...] is a 71 yo male transferred [place] [facility] for cardiac evaluation . pt with [...] Static (Balance)normal balance Sitting, Dynamic (Balance)normal balance Ccg-yk-Tmehi (Balance)normal balance Standing, Static (Balance)normal balance Standing, [...] Updated: 22-Oct-2022 12:17 by Diallo Martines (PT) [facility] Patient Profile - Adult v2on 10-22-2022 Patient Profile - Adult v2 Profile: Initial Info: How to be AddressedJohn Spoken Language PreferredEnglish Source of Informationpatient Stated Reason for AdmissionPatient stated he woke up today in a cold sweat and chest was hurting, SOB started feeling tired, and was shaking Wants Family/Rep Notified of Admissionno Notify PCPnotify PCP Informed of Patient [place] [facility] Medications Brought to Hospitalno General Health: Weight in kg74.8 kilogram(s) Weight in oxo528.9 pound(s) Weight Methodactual (measured) Scale Typebed Height in cm180.1 centimeter(s) Height in feet5 feet Height in opksax65.94 inch(es) Height Methodstated BMI (kg/m2)23.06 square meter [...] 22-Oct-2022 04:50 by Lisa Sue (JENNA) Normal [facility] Phosphorus, Serumon 10-22-19 23 Phosphate [Mass/Vol] 3.6 mg/dL 2.5 - 4.9 MP-N [facility] Work Phone: Comment on above: The performance manjeet acteristics of phosphorus testing in heparinized plasma have been validated by the individual laboratory site where testing is performed. Testing on heparinized plasma is not approved by the FDA; however, such approval is not necessary. Radiologyon 10-22-2022 XR Chest Single view Normal [facility] Work Phone: T4 - Free Thyroxine, Serumon 10-22-2022 Free T4 [Mass/Vol] 0.89 ng/dL See Below MP-Nor [facility] Work Phone: Comment on above: Reference Range: 0.6 1 - 1.12 Thyroxine Free testing is performed using different testing methodology at [facility] than at other [facility]. Direct result comparisons should only [...] THYROXINE,FREE 0.89 ng/dL Normal 0.61 - 1.12 [facility] Comment on above: Result Comment: Thyr oxine Free testing is performed using different testing methodology at [facility] than at other [facility]. Direct result comparisons should only [...] blood draw. Performed By: #### T 4F ####[facility] [place], [place] [id number] TROPONIN I, HIGH SENSITIVITY on 10-22-2022 TROPONIN I, HIGH SENSITIVITY 605 ng/L High 0 - 20 [facility] Comment on above: Result Comment: . Less [...] performed using a different testing methodology at [facility] than at other [facility]. Direct result comparisons should only be made within the same method. This is a critical result. Per Laboratory policy, critical results for this test only qualify to the call list once per 24 hours. Performed By: #### T [facility] [[email or web address]] ####[facility] [place], [place] [id number] Tropinin I.cardiac panel High sensitivity method 605 ng/L above high threshold 0 - 20 -[facility] Work Phone: Comment on above: .Less than [...] performed using a different testing methodology at [facility] than at other [facility]. Direct result comparisons should only be made within the same method.This is a critical result. Per Laboratory policy, critical results for this test only qualify to the call list once per 24 hours. TROPONIN I, HIGH SENSITIVITY 924 ng/L Critically high 0 - 20 [facility] Comment on above: Order Comment: Melody SANON [...] performed using a different testing methodology at [facility] than at other [facility]. Direct result comparisons should only be made within the same method. Confirmed by repeat analysis Called- TALITA to Ade Mcconnell, 10/22/2022 07:10 Performed By: #### T [facility] [[email or web address]] ####[facility] [place], [place] [id number] Tropinin I.cardiac panel High sensitivity method 924 ng/L Critically high 0 - 20 [facility] Work Phone: Comment on above: .Less than [...] performed using a different testing methodology at [facility] than at other [facility]. Direct result comparisons should only be made within the same method.Confirmed by repeat analysis Called- RB to Ade Mcconnell, 10/22/2022 07:10 TROPONIN, HIGH SENSITIVITYon 10-22-2022 HSTROP 1342.0 pg/mL Critically high 4.0-76.1 [facility] Comment on above: Result Comment: CUT- OFF POINTS HAVE BEEN ESTABLISHED BASED ON THE FOURTH UNIVERSAL DEFINITIONS OF MYOCARDIAL INFARCTION. THE UPPER REFERENCE LIMIT (URL) OF TROPONIN, DEFINED THE 99TH PERCENTILE OF cTnI DISTRIBUTION IN A REFERENCE POPULATION, HAS BEEN CONFIRMED THE DECISION THRESHOLD FOR [place] DIAGNOSIS. Performed By: #### H STROPN #### [facility] [address] [address] [address] Wyatt Leger HSTROP 990.4 pg/mL Critically high 4.0-76.1 [facility] Comment on above: Result Comment: CUT- OFF POINTS HAVE BEEN ESTABLISHED BASED ON THE FOURTH UNIVERSAL DEFINITIONS OF MYOCARDIAL INFARCTION. THE UPPER REFERENCE LIMIT (URL) OF TROPONIN, DEFINED THE 99TH PERCENTILE OF cTnI DISTRIBUTION IN A REFERENCE POPULATION, HAS BEEN CONFIRMED THE DECISION THRESHOLD FOR [place] DIAGNOSIS. Performed By: #### H STROPN #### [facility] [address] [address] [address] Wyatt Leger TSHon 10-22-2022 TSH Qn 0.36 m[IU]/L Low 0.44 - 3.98 [facility] Comment on above: Result Comment: TSH testing is performed using different testing methodology at [facility] than at other [facility]. Direct result comparisons should only be made within the same method. Performed By: #### T SH2 ####[address] [id number] TSH - Thyroid Stimulating Ho rmdalia, Serumon 10-22-2022 TSH Qn 0.36 m[IU]/L below low threshold See Below MP-[facility] Work Phone: Comment on above: Reference Range: 0.4 4 - 3.98 TSH testing is performed using different testing methodology at [facility] than at other [facility]. Direct result comparisons should only be made within the same method. URINALYSISon 10-22-2022 Appearance (U) CLEAR Normal CLEAR [facility] Comment on above: Performed By: #### U A ####[address] [id number] Bilirubin Ql (U) Negative Normal NEGATIVE [facility] Comment on above: Performed By: #### U A ####[address] [id number] Color (U) YELLOW Normal STRAW,YELL OW [facility] Comment on above: Performed By: #### U A ####[address] [id number] Glucose Ql (U) Negative Normal NEGATIVE [facility] Comment on above: Performed By: #### U A ####[address] [id number] Hemoglobin Ql (U) Negative Normal NEGATIVE [facility] Comment on above: Performed By: #### U A ####[address] [id number] Ketones Ql (U) Negative Normal NEGATIVE [facility] Comment on above: Performed By: #### U A ####[address] [id number] Leukocyte esterase Test strip Ql (U) Negative Normal NEGATIVE [facility] Comment on above: Performed By: #### U A ####[facility] [place], [place] [id number] Nitrite Ql (U) Negative Normal NEGATIVE [facility] Comment on above: Performed By: #### U A ####[facility] [place], [place] [id number] pH (U) 6.0 [pH] Normal 5.0 - 8.0 [facility] Comment on above: Performed By: #### U A ####[facility] [place], [place] [id number] Protein Ql (U) Negative Normal NEGATIVE [facility] Comment on above: Performed By: #### U A ####[facility] [place], [place] [id number] Specific gravity (U) [Rel density] 1.015 Normal 1.005 - 1.035 [facility] Comment on above: Performed By: #### U A ####[facility] [place], [place] [id number] Urobilinogen (U) [Mass/Vol] mg/dL Normal 0.0 - 1.9 [facility] Comment on above: Performed By: #### U A ####[facility] [place] [id number] Urinalysison 10-22-2022 Color (U) YELLOW See Below [facility] Work Phone: [phone] Comment on above: Reference Range: STR AW,YELLOW Glucose Ql (U) Negative NEGATIVE [facility] Work Phone: [phone] Ketones Ql (U) Negative NEGATIVE [facility] Work Phone: [phone] Leukocyte esterase Test strip Ql (U) Negative NEGATIVE [facility] Work Phone: [phone] pH (U) 6.0 [pH] 5.0 - 8.0 [facility] Work Phone: [phone] Protein (U) [Mass/Vol] Negative NEGATIVE [facility] Work Phone: [phone] RBC (U) [#/Vol] Negative NEGATIVE [facility] Work Phone: [phone] Specific gravity (U) [Rel density] 1.015 1 See Below [facility] Work Phone: [phone] Comment on above: Reference Range: 1.0 05 - 1.035 Urinalysis Negative NEGATIVE [facility] Work Phone: [phone] Urinalysis <2.0 0.0 - 1.9 [facility] Work Phone: [phone] Urinalysis CLEAR CLEAR [facility] Work Phone: [phone] BNPon 10-21-2022 Natriuretic peptide B (Bld) [Mass/Vol] 372.0 pg/mL Normal <=900.0 [facility] Comment on above: Performed By: #### H STROPN, BNP, CMP #### [facility] [address] [place] [address] Dr. Wyatt Leger CBC W MANUAL DIFFon 10-21-19 23 ATYPICAL LYMPH # Normal [facility] Comment on above: Performed By: #### C BESSIE #### [facility] [address] [place] [address] Dr. Wyatt Leger ATYPICAL LYMPH % Normal [facility] Comment on above: Performed By: #### C BCMAN #### [facility] [address] [place] [address] Dr. Wyatt Leger BAND # Normal 0.0-0.3 [facility] Comment on above: Performed By: #### C BESSIE #### [facility] [address] [place] [address] Dr. Wyatt Leger BAND % Normal 0-5 [facility] Comment on above: Performed By: #### C BESSIE #### [facility] [address] [place] [address] Dr. Wyatt Leger BASOM # 0.00 103/ul Normal 0.00-0.10 [facility] Comment on above: Performed By: #### C BESSIE #### [facility] [address] [place] [address] Dr. Wyatt Leger BASOM % 0.0 % Critically low 0.2-2.0 [facility] Comment on above: Performed By: #### C BESSIE #### [facility] [address] [place] [address] Dr. Wyatt Leger BLAST # Normal [facility] Comment on above: Performed By: #### C BESSIE #### [facility] [address] [place] [address] Dr. Wyatt Leger BLAST % Normal [facility] Comment on above: Performed By: #### C BESSIE #### [facility] [address] [place] [address] Dr. Wyatt Leger CORRECTED WBC Normal 4.0-11.0 [facility] Comment on above: Performed By: #### C BESSIE #### [facility] [address] [place] [address] Dr. Wyatt Leger EOS # 0.05 103/ul Normal 0.00-0.70 [facility] Comment on above: Performed By: #### C BESSIE #### [facility] [address] [place] [address] Dr. Wyatt Leger EOS% 1.0 % Normal 0.9-7.0 [facility] Comment on above: Performed By: #### C BESSIE #### [facility] [address] [place] [address] Dr. Wyatt Leger HCT 43.2 % Normal 42.0-54.0 [facility] Comment on above: Performed By: #### C BESSIE #### [facility] [address] [place] [address] Dr. Wyatt Leger HGB 14.7 g/dl Normal 14.0-18.0 [facility] Comment on above: Performed By: #### C BESSIE #### [facility] [address] [place] [address] Dr. Wyatt Leger LYMPHM # 0.97 103/ul Critically low 1.20-3.80 [facility] Comment on above: Performed By: #### C BESSIE #### [facility] [address] [place] [address] Dr. Wyatt Leger LYMPHM% 21.0 % Normal 20.5-60.0 [facility] Comment on above: Performed By: #### C BESSIE #### [facility] [address] [place] [address] Dr. Wyatt Leger MCH 31.2 pg Normal 25.9-34.0 [facility] Comment on above: Performed By: #### C BESSIE #### [facility] [address] [place] [address] Dr. Wyatt Leger MCHC 34.0 g/dl Normal 29.9-35.2 [facility] Comment on above: Performed By: #### C BESSIE #### [facility] [address] [place] [address] Dr. Wyatt Leger MCV 91.7 fL Normal 80.0-94.0 [facility] Comment on above: Performed By: #### C BESSIE #### [facility] [address] [place] [address] Dr. Wyatt Leger METAMYELOCYTE # Normal [facility] Comment on above: Performed By: #### C BESSIE #### [facility] [address] [place] [address] Dr. Wyatt Leger METAMYELOCYTE % Normal [facility] Comment on above: Performed By: #### C BESSIE #### [facility] [address] [place] [address] Dr. Wyatt Leger MONOM# 0.00 103/ul Critically low 0.30-0.80 [facility] Comment on above: Performed By: #### C BESSIE #### [facility] [address] [place] [address] Dr. Wyatt Leger MONOM% 0.0 % Critically low 1.7-12.0 [facility] Comment on above: Performed By: #### C BESSIE #### [facility] [address] [address] [address] Wyatt Leger MPV 9.1 fL Critically low 9.5-13.5 [facility] Comment on above: Performed By: #### C BESSIE #### [facility] [address] [address] [address] Wyatt Leger MYELOCYTE # Normal [facility] Comment on above: Performed By: #### C BESSIE #### [facility] [address] [address] [address] Wyatt Leger MYELOCYTE % Normal [facility] Comment on above: Performed By: #### C BESSIE #### [facility] [address] [place] [address] Dr. Wyatt Leger NRBC Normal [facility] Comment on above: Performed By: #### C BESSIE #### [facility] [address] [place] [address] Dr. Wyatt Leger PLT 272 103/ul Normal 150-450 [facility] Comment on above: Performed By: #### C BESSIE #### [facility] [address] [place] [address] Dr. Wyatt Leger RBC 4.71 106/ul Normal 4.70-6.10 [facility] Comment on above: Performed By: #### C BESSIE #### [facility] [address] [place] [address] Dr. Wyatt Leger RDW 12.2 % Normal 11.0-15.0 [facility] Comment on above: Performed By: #### C BESSIE #### [facility] [address] [place] [address] Dr. Wyatt Leger SEG # 3.59 103/ul Normal 1.40-6.50 [facility] Comment on above: Performed By: #### C BESSIE #### [facility] [address] [place] [address] Dr. Wyatt Leger SEG % 78.0 % Critically high 43.0-75.0 [facility] Comment on above: Result Comment: VACU OLES SEEN Performed By: #### C BESSIE #### [facility] [address] [address] [address] Wyatt Leger WBC 4.6 103/ul Normal 4.0-11.0 [facility] Comment on above: Performed By: #### C ASHLYNLEESA #### [facility] [address] [place] [address] Dr. Wyatt Leger CULTURE BLOODon 10-21-2022 Microscopic examination of blood, culture Culture Observations: NO GROWTH AT 5 DAYS. Normal [facility] Comment on above: Performed By: #### B LDCX2 #### [facility] [address] [address] [address] Wyatt Leger Microscopic examination of blood, culture Culture Observations: NO GROWTH AT 5 DAYS. Normal [facility] Comment on above: Performed By: #### B LDCX2 #### [facility] [address] [place] [address] Dr. Wyatt Leger [facility]on SARS-CoV-2 (COVID-19) RNA MIGUEL+probe Ql (Unsp spec) Not detected Normal NOT DETECTED [facility] Comment on above: Result Comment: When diagnostic [...] for this test is supported by the [place] of Health and Human Service's declaration that [...] used). Performed By: #### B LDCX2 #### [facility] [address] [place] [address] Dr. Wyatt Leger INFLUENZA A AND B AGon 10-[facility] BELOW Normal [facility] Comment on above: Result Comment: Nega tive for Flu A protein angiten. Infection due to Flu A cannot be ruled out. Flu A angiten in the sample may be below the detection limit of the test. Performed By: #### B LDCX2 #### [facility] [address] [place] [address] Dr. Wyatt Leg[facility] Normal [facility] Comment on above: Result Comment: Nega tive for Flu B protein antigen. Infection due to Flu B cannot be ruled out. Flu B antigen in the sample may be below the detection limit of the test. Performed By: #### B LDCX2 #### [facility] [address] [place] [address] Dr. Wyatt Leger INFLUENZA A AG Negative Normal NEGATIVE SEE COMMENT [facility] Comment on above: Performed By: #### B LDCX2 #### [facility] [address] [place] [address] Dr. Wyatt Leger INFLUENZA B AG Negative Normal NEGATIVE SEE COMMENT [facility] Comment on above: Performed By: #### B LDCX2 #### [facility] [address] [place] [address] Dr. Wyatt Leegr LACTATE/LACTIC ACIDon 2022 Lactate [Moles/Vol] 2.3 mmol/L Critically high 0.4-1.9 [facility] Comment on above: Performed By: #### L ACT #### [facility] [address] [place] [address] Dr. Wyatt Leger PROF 14(COMP METB)on 023 Albumin [Mass/Vol] 3.7 g/dL Normal 3.4-5.0 [facility] Comment on above: Performed By: #### H STROPN, BNP, CMP #### [facility] [address] [place] [address] Dr. Wyatt Leger Albumin/Globulin [Mass ratio] 0.9 {ratio} Normal [facility] Comment on above: Performed By: #### H STROPN, BNP, CMP #### [facility] [address] [address] [address] Wyatt Leger ALP [Catalytic activity/Vol] 93 U/L Normal 46-116 [facility] Comment on above: Performed By: #### H STROPN, BNP, CMP #### [facility] [address] [address] [address] Wyatt Leger ALT [Catalytic activity/Vol] 31 U/L Normal 16-63 [facility] Comment on above: Performed By: #### H STROPN, BNP, CMP #### [facility] [address] [address] [address] Wyatt Leger Anion gap [Moles/Vol] 10.4 mmol/L Normal [facility] Comment on above: Performed By: #### H STROPN, BNP, CMP #### [facility] [address] [place] [address] Dr. Wyatt Leger AST [Catalytic activity/Vol] 40 U/L Critically high 15-37 [facility] Comment on above: Performed By: #### H STROPN, BNP, CMP #### [facility] [address] [place] [address] Dr. Wyatt Leger Bilirubin [Mass/Vol] 0.5 mg/dL Normal 0.2-1.0 [facility] Comment on above: Performed By: #### H STROPN, BNP, CMP #### [facility] [address] [place] [address] Dr. Wyatt Leger Calcium [Mass/Vol] 8.7 mg/dL Normal 8.5-10.1 [facility] Comment on above: Performed By: #### H STROPN, BNP, CMP #### [facility] [address] [address] [address] Wyatt Leger Chloride [Moles/Vol] 102 mmol/L Normal 98-107 [facility] Comment on above: Performed By: #### H STROPN, BNP, CMP #### [facility] [address] [address] [address] Wyatt Leger CO2 [Moles/Vol] 29.6 mmol/L Normal 21.0-32.0 [facility] Comment on above: Performed By: #### H STROPN, BNP, CMP #### [facility] [address] [address] [address] Wyatt Leger Creatinine [Mass/Vol] 0.89 mg/dL Normal 0.70-1.30 [facility] Comment on above: Performed By: #### H STROPN, BNP, CMP #### [facility] [address] [address] [address] Wyatt Leger EGFR-AF GHANAIAN >60 Normal >=60 [facility] Comment on above: Performed By: #### H STROPN, BNP, CMP #### [facility] [address] [address] [address] Wyatt Leger EGFR-NON AF GHANAIAN >60 Normal >=60 [facility] Comment on above: Performed By: #### H STROPN, BNP, CMP #### [facility] [address] [address] [address] Wyatt Leger Globulin (S) [Mass/Vol] 4.0 g/dL Normal [facility] Comment on above: Performed By: #### H STROPN, BNP, CMP #### [facility] [address] [address] [address] Wyatt Leger Glucose [Mass/Vol] 102 mg/dL Normal 74-106 [facility] Comment on above: Performed By: #### H STROPN, BNP, CMP #### [facility] [address] [address] [address] Wyatt Leger Potassium [Moles/Vol] 4.0 mmol/L Normal 3.5-5.1 [facility] Comment on above: Performed By: #### H STROPN, BNP, CMP #### [facility] [address] [address] [address] Wyatt Leger Protein [Mass/Vol] 7.7 g/dL Normal 6.4-8.2 [facility] Comment on above: Performed By: #### H STROPN, BNP, CMP #### [facility] [address] [address] [address] Wyatt Leger Sodium [Moles/Vol] 138 mmol/L Normal 136-145 [facility] Comment on above: Performed By: #### H STROPN, BNP, CMP #### [facility] [address] [address] [address] Wyatt Leger Urea nitrogen [Mass/Vol] 17.0 mg/dL Normal 7.0-18.0 [facility] Comment on above: Performed By: #### H STROPN, BNP, CMP #### [facility] [address] [address] [address] Wyatt Leegr Urea nitrogen/Creatinine [Mass ratio] 19.1 mg/mg Normal [facility] Comment on above: Performed By: #### H STROPN, BNP, CMP #### [facility] [address] [place] [address] Dr. Wyatt Leger TROPONIN, HIGH SENSITIVITYon 10-21-2022 HSTROP 441.2 pg/mL Critically high 4.0-76.1 [facility] Comment on above: Result Comment: CUT- OFF POINTS HAVE BEEN ESTABLISHED BASED ON THE FOURTH UNIVERSAL DEFINITIONS OF MYOCARDIAL INFARCTION. THE UPPER REFERENCE LIMIT (URL) OF TROPONIN, DEFINED THE 99TH PERCENTILE OF cTnI DISTRIBUTION IN A REFERENCE POPULATION, HAS BEEN CONFIRMED THE DECISION THRESHOLD FOR [place] DIAGNOSIS. Performed By: #### H STROPN #### [facility] [address] [place] [address] Dr. Wyatt Leger HSTROP 14.6 pg/mL Normal 4.0-76.1 [facility] Comment on above: Result Comment: CUT- OFF POINTS HAVE BEEN ESTABLISHED BASED ON THE FOURTH UNIVERSAL DEFINITIONS OF MYOCARDIAL INFARCTION. THE UPPER REFERENCE LIMIT (URL) OF TROPONIN, DEFINED THE 99TH PERCENTILE OF cTnI DISTRIBUTION IN A REFERENCE POPULATION, HAS BEEN CONFIRMED THE DECISION THRESHOLD FOR [place] DIAGNOSIS. Performed By: #### H STROPN, BNP, CMP #### [facility] [address] [place] [address] Dr. Wyatt Leger XR CHEST 1 Von [...] lesion. Stable remote right posterior fractures OTHER: Herald obscured by the head position IMPRESSION: Clear lungs Electronically authenticated by: ARIANA ROSAS Date: 2022-10-21 19:36 Normal [facility] Complete Blood Counton 10-27 Erythrocyte distribution width (RBC) [Ratio] 12.6 % Normal 11.0-15.0 [facility] Comment on above: Performed By: #### C BC, CMP, TSH reflex FT4, LIPD #### [facility] [address], [place] [id number] Hematocrit (Bld) [Volume fraction] 43.4 % Normal 38.5-50.0 [facility] Comment on above: Performed By: #### C BC, CMP, TSH reflex FT4, LIPD #### [facility] [address], [place] [id number] Hemoglobin (Bld) [Mass/Vol] 14.5 g/dL Normal 13.0-17.1 [facility] Comment on above: Performed By: #### C BC, CMP, TSH reflex FT4, LIPD #### [facility] [address], [place] [id number] MCH (RBC) [Entitic mass] 31.3 pg Normal 27.0-33.0 [facility] Comment on above: Performed By: #### C BC, CMP, TSH reflex FT4, LIPD #### [facility] [address], [place] [id number] MCHC (RBC) [Mass/Vol] 33.4 g/dL Normal 32.0-36.0 [facility] Comment on above: Performed By: #### C BC, CMP, TSH reflex FT4, LIPD #### [facility] [address], [place] [id number] MCV (RBC) [Entitic vol] 94 fL Normal 80-100 [facility] Comment on above: Performed By: #### C BC, CMP, TSH reflex FT4, LIPD #### [facility] [address], [place] [id number] Platelet mean volume (Bld) [Entitic vol] 9.60 fL Normal 7.50-12.50 [facility] [employer] Comment on above: Performed By: #### C BC, CMP, TSH reflex FT4, LIPD #### [facility] [address], [place] [id number] Platelets (Bld) [#/Vol] 354 10*3/uL Normal 140-400 [facility] [employer] Comment on above: Performed By: #### C BC, CMP, TSH reflex FT4, LIPD #### [facility] [address], [place] [id number] RBC (Bld) [#/Vol] 4.63 10*6/uL Normal 4.20-5.80 [facility] [employer] Comment on above: Performed By: #### C BC, CMP, TSH reflex FT4, LIPD #### [facility] [address], [place] [id number] RDW-SD 43.8 fL Normal 37.0-50.0 [facility] [employer] Comment on above: Performed By: #### C BC, CMP, TSH reflex FT4, LIPD #### [facility] [address], [place] [id number] WBC (Bld) [#/Vol] 6.4 10*3/uL Normal 3.8-11.0 [facility] [employer] Comment on above: Performed By: #### C BC, CMP, TSH reflex FT4, LIPD #### [facility] [address], [place] [id number] Comprehensive Metabolic Pane ethel 10-27-2021 Albumin [Mass/Vol] 4.3 g/dL Normal 3.6-5.1 [facility] [employer] Comment on above: Performed By: #### C BC, CMP, TSH reflex FT4, LIPD #### [facility] [address], [place] [id number] Albumin/Globulin [Mass ratio] 1.7 {ratio} Normal 1.0-2.5 [facility] [employer] Comment on above: Performed By: #### C BC, CMP, TSH reflex FT4, LIPD #### [facility] [address], [place] [id number] ALP [Catalytic activity/Vol] 77 U/L Normal 40-129 [facility] Comment on above: Performed By: #### C BC, CMP, TSH reflex FT4, LIPD #### [facility] [address], [place] [id number] ALT [Catalytic activity/Vol] 9 U/L Normal 9-46 [facility] Comment on above: Result Comment: 09/17 Female reference range changed. Performed By: #### C BC, CMP, TSH reflex FT4, LIPD #### [facility] [address], [place] [id number] Anion gap [Moles/Vol] 18 mmol/L Normal 12-20 [facility] Comment on above: Result Comment: Effe ctive 10/23/2019 reference range changed. Performed By: #### C BC, CMP, TSH reflex FT4, LIPD #### [facility] [address], [place] [id number] AST [Catalytic activity/Vol] 12 U/L Normal 10-40 [facility] Comment on above: Performed By: #### C BC, CMP, TSH reflex FT4, LIPD #### [facility] [address], [place] [id number] Bilirubin [Mass/Vol] 0.64 mg/dL Normal 0.30-1.20 [facility] Comment on above: Performed By: #### C BC, CMP, TSH reflex FT4, LIPD #### [facility] [address], [place] [id number] BUN/CREA 16 Ratio Normal 6-22 [facility] Comment on above: Performed By: #### C BC, CMP, TSH reflex FT4, LIPD #### [facility] [address], [place] [id number] Calcium [Mass/Vol] 9.7 mg/dL Normal 8.6-10.2 [facility] Comment on above: Performed By: #### C BC, CMP, TSH reflex FT4, LIPD #### [facility] [address], [place] [id number] Chloride [Moles/Vol] 105 mmol/L Normal 98-107 [facility] Comment on above: Performed By: #### C BC, CMP, TSH reflex FT4, LIPD #### [facility] [address], [place] [id number] CO2 [Moles/Vol] 24 mmol/L Normal 20-31 [facility] Comment on above: Performed By: #### C BC, CMP, TSH reflex FT4, LIPD #### [facility] [address], [place] [id number] Creatinine [Mass/Vol] 0.9 mg/dL Normal 0.7-1.4 [facility] Comment on above: Performed By: #### C BC, CMP, TSH reflex FT4, LIPD #### [facility] [address], [place] [id number] eGFRAA 97 mL/min/1.73m2 Normal >60 [facility] Comment on above: Performed By: #### C BC, CMP, TSH reflex FT4, LIPD #### [facility] [address], [place] [id number] eGFRNAA 80 mL/min/1.73m2 Normal >60 [facility] Comment on above: Performed By: #### C BC, CMP, TSH reflex FT4, LIPD #### [facility] [address], [place] [id number] Globulin (S) [Mass/Vol] 2.5 g/dL Normal 1.9-3.7 [facility] Comment on above: Performed By: #### C BC, CMP, TSH reflex FT4, LIPD #### [facility] [address], [place] [id number] Glucose [Mass/Vol] 96 mg/dL Normal 65-99 [facility] Comment on above: Result Comment: For FASTING Glucose --- ADA reference ranges: Normal 65-99 mg/dl Prediabetes 100-125 Diabetes >/= 126 Performed By: #### C BC, CMP, TSH reflex FT4, LIPD #### [facility] [address], [place] [id number] Potassium [Moles/Vol] 5.0 mmol/L Normal 3.5-5.5 [place] [facility] [employer] [facility] Comment on above: Performed By: #### C BC, CMP, TSH reflex FT4, LIPD #### [facility] [address], [place] [id number] Protein [Mass/Vol] 6.8 g/dL Normal 6.1-8.1 Salempamela rn [place] [facility] Comment on above: Performed By: #### C BC, CMP, TSH reflex FT4, LIPD #### [facility] [address], [place] [id number] Sodium [Moles/Vol] 141 mmol/L Normal 135-146 Derek rn [place] [facility] Comment on above: Performed By: #### C BC, CMP, TSH reflex FT4, LIPD #### [facility] [address], [place] [id number] Urea nitrogen [Mass/Vol] 15 mg/dL Normal 7-25 [facility] [employer] Comment on above: Performed By: #### C BC, CMP, TSH reflex FT4, LIPD #### [facility] [address], [place] [id number] Lipid Panelon 10-27-2021 Cholesterol [Mass/Vol] 151 mg/dL Normal 125-200 [facility] [employer] Comment on above: Result Comment: Low risk < 200mg/dL Borderline risk 201-239 mg/dl High risk > or equal to 240 Performed By: #### C BC, CMP, TSH reflex FT4, LIPD #### [facility] [address], [place] [id number] Cholesterol in HDL [Mass/Vol] 50 mg/dL Normal >40 [facility] [employer] Comment on above: Result Comment: High Cardiovascular Risk HDL <40 mg/dL Low Cardiovascular Risk HDL > or equal to 60 mg/dl Performed By: #### C BC, CMP, TSH reflex FT4, LIPD #### [facility] [address], [place] [id number] Cholesterol in LDL [Mass/Vol] 87 mg/dL Normal [facility] [employer] Comment on above: Result Comment: LDL ATP III CLASSIFICATION LDL less than 100 mg/dl Optimal LDL 100-129 mg/dl Near or above optimal LDL 130-159 Borderline high LDL 160-189 High LDL greater than 189 mg/dl Very High Performed By: #### C BC, CMP, TSH reflex FT4, LIPD #### [facility] [address], [place] [id number] Cholesterol in VLDL [Mass/Vol] 14 mg/dL Normal [facility] Comment on above: Performed By: #### C BC, CMP, TSH reflex FT4, LIPD #### [facility] [address], [place] [id number] Cholesterol.total/Ch olesterol in HDL [Mass ratio] 3 {ratio} Normal [facility] Comment on above: Performed By: #### C BC, CMP, TSH reflex FT4, LIPD #### [facility] [address], [place] [id number] Triglyceride [Mass/Vol] 69 mg/dL Normal 30-150 [facility] Comment on above: Result Comment: TRIG ATPIII CLASSIFICATIONS TRIG less than 150 mg/dl Normal TRIG 150-199 mg/dl Borderline High TRIG 200-500 mg/dl High TRIG greather than 500 mg/dl Very High Performed By: #### C BC, CMP, TSH reflex FT4, LIPD #### [facility] [address], [place] [id number] PSA SCREEN (MEDICARE)on 10-18 TPSA 0.549 ng/mL Normal <4.000 [facility] Comment on above: Result Comment: PSA Test Method: ECLIA/Jerald e 601 Performed By: #### P SA #### [facility] [address], [place] [id number] TSH w/ Reflex to Free T4on 0 10-27-2021 TSH 0.979 uIU/mL Normal 0.400-4.50 0 [facility] Comment on above: Performed By: #### C BC, CMP, TSH reflex FT4, LIPD #### [facility] [address], [place] [id number] CULTURE, AEROBIC AND ANAEROB IC W/GRAM STAINon 04-16-2020 CULTURE SEE NOTE Normal [facility] Comment on above: Result Comment: CULTURE, AEROBIC BACTERIA Micro Number: [id number] Test Status: Final Specimen Source: SKIN Specimen Quality: Adequate Result: Growth of skin janine (note: Growth does not include S. aureus, beta-hemolytic Streptococci or P. aeruginosa). Performed By: #### 4 446 #### [facility] [address], [address] [place] [address] [employer] Knitter: Simone Singletary MD CULTURE, ANAEROBIC BACTERIA W/GRAM STAIN SEE NOTE Normal [facility] Comment on above: Result Comment: CULTURE, ANAEROBIC BACTERIA W/GRAM STAIN Micro Number: [id number] Test Status: Final Specimen Source: 4446 Specimen Quality: Adequate Gram Stain: No organisms or white blood cells seen Result: No anaerobes isolated. Performed By: #### 4 446 #### [facility] [address], [address] [place] [address] [employer] Knitter: Simone Singletary MD Vital Signs Date Time Vital Sign Value Performing Clinician Facility 02-14-2024 10:15-0400 [facility] blood [facility] 02-14-2024 10:15-0400 Mean blood pressure 111 mm[Hg] Lm Posada [facility] 02-14-2024 10:15-0400 Systolic blood pressure 178 mm[facility] 02-14-2024 10:00-[address] [facility] [facility] 02-14-2024 10:00-0400 Diastolic blood pressure 92 mm[Hg] Lm Posada [facility] 02-14-2024 10:00-0400 Heart rate 60 /min Lm Posada [facility] 02-14-2024 10:00-0400 SaO2% (BldA) [Mass fraction] 97 % [facility] 02-14-2024 10:00-0400 Systolic blood pressure 185 mm[facility]Hg[facility] 01-13-2024 09:23-0400 Diastolic blood pressure 72 mm[Hg] Lm Posada [facility] 01-13-2024 09:23-0400 Heart rate 70 /min Lm Posada [facility] 01-13-2024 09:23-0400 SaO2% (BldA) [Mass fraction] 99 % Lm Posada [facility] 01-13-2024 09:23-0400 Systolic blood pressure 132 mm[Hg] Lm Posada [facility] 01-05-2024 21:20-0400 Diastolic blood pressure 91 mm[Hg] [facility] 01-05-2024 21:20-0400 Heart rate 80 /min [facility] 01-05-2024 21:20-0400 Mean blood pressure 117 mm[Hg] [facility] 01-05-2024 21:20-0400 Respiratory rate 22 /min [facility] 01-05-2024 21:20-0400 SaO2% (BldA) [Mass fraction] 94 % [facility] 01-05-2024 21:20-0400 Systolic blood pressure 168 mm[Hg] [facility] 01-05-2024 19:30-0400 Diastolic blood pressure 95 mm[Hg] [facility] 01-05-2024 19:30-0400 Heart rate 71 /min [facility] 01-05-2024 19:30-0400 Mean blood pressure 122 mm[Hg] [facility] 01-05-2024 19:30-0400 Respiratory rate 11 /min [facility] 01-05-2024 19:30-0400 SaO2% (BldA) [Mass fraction] 97 % [facility] 01-05-2024 19:30-0400 Systolic blood pressure 175 mm[Hg] [facility] 01-05-2024 18:41-0400 Diastolic blood pressure 89 mm[Hg] [facility] 01-05-2024 18:41-0400 Heart rate 79 /min [facility] 01-05-2024 18:41-0400 Mean blood pressure 113 mm[Hg] [facility] 01-05-2024 18:41-0400 Respiratory rate 22 /min [facility] 01-05-2024 18:41-0400 SaO2% (BldA) [Mass fraction] 98 % [facility] 01-05-2024 18:41-0400 Systolic blood pressure 160 mm[Hg] [facility] 01-05-2024 18:21-0400 Respiratory rate 10 /min [facility] 01-05-2024 18:14-0400 Respiratory rate 14 /min [facility] 01-05-2024 17:40-0400 Body temperature 98.24 [degF] [facility] 01-05-2024 17:40-0400 Heart rate 94 /min [facility] 01-05-2024 17:40-0400 Respiratory rate 16 /min [facility] 12-27-2023 12:09-0400 Blood Pressure Location Lorenzo STILL [facility] 12-27-2023 12:09-0400 Diastolic blood pressure 86 mm[Hg] Lorenzo STILL [facility] 12-27-2023 12:09-0400 Heart rate 84 /min Lorenzo STILL [facility] 12-27-2023 12:09-0400 Respiratory rate 16 /min Lorenzo STILL [facility] 12-27-2023 12:09-0400 Systolic blood pressure 134 mm[Hg] Lorenzo TESSY [facility] 07-09-2023 12:39-0400 Body height 180.34 cm MD Rodney Julio Work Phone: [facility] 07-09-2023 12:39-0400 Body weight 72.57 kg MD Rodney Julio Work Phone: [facility] 07-09-2023 12:38-0400 Body temperature 97.7 [degF] MD Rodney Julio Work Phone: [facility] 07-09-2023 12:38-0400 Diastolic blood pressure 92 mm[Hg] MD Rodney Julio Work Phone: [facility] 07-09-2023 12:38-0400 Heart rate 73 /min MD Rodney Julio Work Phone: [facility] 07-09-2023 12:38-0400 Respiratory rate 20 /min MD Rodney Julio Work Phone: [facility] 07-09-2023 12:38-0400 SaO2% (BldA) [Mass fraction] 98 % MD Rodney Julio Work Phone: [facility] 07-09-2023 12:38-0400 Systolic blood pressure 191 mm[Hg] MD Rodney Julio Work Phone: [facility] 07-05-2023 10:38-0400 Blood Pressure Location Lorenzo TESSY [facility] 07-05-2023 10:38-0400 Diastolic blood pressure 68 mm[Hg] Lorenzo STILL [facility] 07-05-2023 10:38-0400 Heart rate 65 /min Lorenzoalexis STILL [facility] 07-05-2023 10:38-0400 Respiratory rate 16 /min Lorenzoalexis STILL [facility] 07-05-2023 10:38-0400 Systolic blood pressure 116 mm[Hg] Lorenzoalexis STILL [facility] 12-28-2022 13:00-0400 Blood Pressure Location Lorenzoalexis STILL [facility] 12-28-2022 13:00-0400 Diastolic blood pressure 79 mm[Hg] Lorenzoalexis STILL [facility] 12-28-2022 13:00-0400 Heart rate 60 /min Lorenzoalexis STILL [facility] 12-28-2022 13:00-0400 Systolic blood pressure 135 mm[Hg] Lorenzoalexis STILL [facility] 12-07-2022 09:32-0500 Body height 177.8 cm Judah Ledesma Work Phone: [facility] DO Work Phone: 12-07-2022 09:32-0500 Body mass index (BMI) [Ratio] 23.24 kg/m2 Judah Ledesma Work Phone: [facility] DO Work Phone: 12-07-2022 09:32-0500 Body surface area Derived from formula 1.91 m2 Judah Ledesma Work Phone: [facility] DO Work Phone: 12-07-2022 09:32-0500 Body weight 73.48 kg Judah Parkerring Work Phone: [facility] DO Work Phone: 12-07-2022 09:32-0500 Diastolic blood pressure 70 mm[Hg] Judah A Ledesma Work Phone: [facility] DO Work Phone: 12-07-2022 09:32-0500 Heart rate 72 /min Judah A Ledesma Work Phone: [facility] DO Work Phone: 12-07-2022 09:32-0500 Systolic blood pressure 128 mm[Hg] Judah A Ledesma Work Phone: [facility] DO Work Phone: 2022 09:48-0500 Body temperature 97.34 [degF] Judah Ledesma Other Phone: [facility] 2022 09:48-0500 Diastolic blood pressure 72 mm[Hg] Judah Ledesma Other Phone: [facility] 2022 09:48-0500 Heart rate 63 /min Judah Ledesma Other Phone: [facility] 2022 09:48-0500 SaO2% (BldA) [Mass fraction] 95 % Judah Ledesma Other Phone: [facility] 2022 09:48-0500 Systolic blood pressure 165 mm[Hg] Judah Ledesma Other Phone: [facility] Encounters Encounter Date Encounter Type Care Provider Facility Start: 02-14-2024 End: 02-15-2024 ambulatory XXXX NONE Facility:[facility] Start: 02-14-2024 End: 02-14-2024 Patient encounter procedure Lm Mesam [facility] Start: 01-31-2024 End: 02-16-2024 ambulatory [facility] Start: 01-27-2024 End: 01-28-2024 ambulatory Bashar X [place] Facility:[facility] Start: 01-27-2024 End: 01-27-2024 Patient encounter procedure Bashar X [place] [facility] Start: 01-13-2024 End: 01-14-2024 ambulatory Bashar X [place] Facility:[facility] Start: 01-13-2024 End: 01-13-2024 Patient encounter procedure Bashar X [place] [facility] Start: 01-05-2024 End: 01-05-2024 Emergency department patient visit Davi Drummondcorinne Facility:[facility] Start: 01-05-2024 End: 01-05-2024 Emergency department patient visit [facility] Dash Drummondcorinne [facility] Start: 12-27-2023 End: 12-28-2023 ambulatory Lorenzo STILL Facility:[facility] Start: 12-27-2023 End: 12-28-2023 ambulatory Lorenzo STILL Facility:[facility] Start: 12-27-2023 End: 12-27-2023 Lab Drop off Lorenzo STILL [facility] Start: 12-27-2023 End: 12-27-2023 Patient encounter procedure Lorenzo STILL [facility] Start: 10-27-2023 End: 10-27-2023 ambulatory ABRAHAN SANDS Not Available Start: 07-09-2023 End: 07-09-2023 Emergency department patient visit Abrahan Sands Facility:[facility] Start: 07-09-2023 End: 07-09-2023 Emergency department patient visit MD Rodney Julio Work Phone: [facility] Work Phone: Start: 07-05-2023 End: 07-06-2023 ambulatory Lorenzo STILL Facility:[facility] Start: 07-05-2023 End: 07-05-2023 Patient encounter procedure Lorenzo STILL [facility] Start: 06-29-2023 End: 06-30-2023 ambulatory KAT SAUCEDO Facility:[facility] Start: 12-28-2022 End: 12-28-2022 Patient encounter procedure Lorenzo STILL [facility] Start: 12-07-2022 Office outpatient vi sit 25 minutes Judah Ledesma Work Phone: [facility] DO Work Phone: Start: 12-07-2022 ambulatory Judah Alejandra II Facility: Start: 12-04-[address] Goran Palmer Facility: Start: 11-30-2022 End: 11-30-2022 Lab Drop off Lorenzo STILL [facility] Start: 11-30-2022 End: 11-30-2022 Patient encounter procedure Lorenzo STILL [facility] Start: 10-29-2022 Patient encounter procedure Judah Ledesma Work Phone: [facility] DO Work Phone: Start: 10-29-2022 ambulatory Judah Alejandra II Facility: Start: 10-23-2022 AUDIT Judah arenas Work Phone: [facility] [place] Work Phone: Start: 10-22-2022 End: 2022 Evaluation and management of inpatient Feng Ospina 8 Cardio ICU 814 01 Start: 10-21-2022 End: 10-22-[address] JUDAH ALEJANDRA Facility:[facility] Start: 05-22-2022 End: 05-23-[address] JUDAH ALEJANDRA Facility:[facility] Start: 04-27-2022 End: 04-27-2022 Patient encounter procedure Lorenzo STILL [facility] Procedures Date Procedure Procedure Detail Performing [...] Activity Detail Author Start: 07-10-2024 ambulatory Ambulatory Facility:[facility] Start: 12-07-2022 FUV, Provider: Jc Everett, Status: Pen, Time: 9:50 AM FUV, Provider: Jc Everett, Status: Pen, Time: 9:50 AM -[facility] DO Work Phone: Start: 10-22-2022 End: 10-23-2023 [facility] H/O: surgery History of cochl ear implant [facility] History of tonsillectomy History of tonsi llectomy [facility] NSTEMI, initial epis ode of care NSTEMI, initial episode of care [facility] Patient referral [facility] Work Phone: Immunizations Immunization Date Immunization Notes Care Provider Mary tee 08-05-2022 influenza virus vaccine, unspecified formulation Lorenzo STILL [facility] 09-22-2021 SARS-CoV-2 (COVID-19 ) mRNA BNT-162b2 vax Lorenzo STILL [facility] 08-26-2021 influenza virus vaccine, unspecified formulation Lorenzo STILL [facility] 01-03-2021 SARS-CoV-2 (COVID-19 ) mRNA BNT-162b2 vax Lorenzo STILL [facility] 12-13-2020 SARS-CoV-2 (COVID-19 ) mRNA BNT-162b2 vax Lorenzo STILL [facility] 06-14-2019 influenza virus vaccine, unspecified formulation Lorenzo STILL [facility] 08-13-2018 influenza virus vaccine, unspecified formulation Lorenzo STILL [facility] 07-18-2018 influenza virus vaccine, unspecified formulation Lorenzo STILL [facility] 08-11-2017 influenza, unspecifi ed formulation Lorenzo STILL [facility] 06-07-2017 influenza virus vaccine, unspecified formulation Lorenzo STILL [facility] 06-07-2017 tetanus toxoid, redu latanya diphtheria toxoid, and acellular pertussis vaccine, adsorbed Lorenzo STILL [facility] 11-29-2015 influenza virus vaccine, unspecified formulation Lorenzo STILL [facility] 03-18-2015 pneumococcal polysaccharide vaccine, 23 valent Lorenzo STILL [facility] 01-23-2015 pneumococcal conjuga te vaccine, 13 valent Lorenzoalexis STILL [facility] NEGATED: Highlighted row has not occurred!08-30-2020 influenza virus vaccine, unspecified formulation Lorenzo STILL [facility] Payers Date Payer Category Payer Medicare [id number] 2023 Self-pay [id number] 2022 Private Health Insurance [id number] 1959 Medicare [id number] 1961 Medicare [id number] 1948 Unknown [id number] 2.16.840.1.587888.3.579.2.5 93 1948 Unknown [id number] 2.16.840.1.504094.3.579.2.5 93 1948 Unknown [id number] 2.16.840.1.699576.3.579.2.1 068 1948 Unknown [id number] 2.16.840.1.924363.3.579.2.3 56 1948 Unknown [id number] 2.16.840.1.979844.3.579.2.3 56 1948 Unknown [id number] 2.16.840.1.256906.3.579.2.3 56 1948 Unknown [id number] 2.16.840.1.877905.3.579.2.1 259 1948 Unknown [id number] 2.16.840.1.149103.3.579.2.1 286 1948 Unknown [id number] 2.16.840.1.177896.3.579.2.7 27 1948 Unknown [id number] 2.16.840.1.180087.3.579.2.7 27 1948 Unknown [id number] 2.16.840.1.892429.3.579.2.7 27 1948 Unknown [id number] 2.16.840.1.618736.3.579.2.7 27 1948 Unknown [id number] 2.16.840.1.993041.3.579.2.7 27 1948 Unknown [id number] 2.16.840.1.795895.3.579.2.7 27 1948 Unknown [id number] 2.16.840.1.502471.3.579.2.7 27 1948 Unknown [id number] 2.16.840.1.544052.3.579.2.7 27 1948 Unknown [id number] 2.16.840.1.720700.3.579.2.7 27 1948 Unknown [id number] 2.16.840.1.145837.3.579.2.7 27 Medicare [id number] Unknown Unknown [employer] [id number] Unknown [id number] 2.16.840.1.876872.3.579.2.5 31 Social History Date Type Detail Facility Start: 10-27-2021 End: 12-27-2023 Tobacco smoking status Never smoked tobacco (finding) [facility] Sex Assigned At Male [facility] Former smoker Former smoker [facility] Work Phone: Comment on above: 8 cups of coffee; Tobacco smoking consumption unknown [facility] Tobacco smoking status Never [facility] Start: 1950 Sex Assigned At Male [facility] Functional Status Date Assessment Result Facility 02-14-2024 Functional Status No [facility] 01-13-2024 Functional Status N/A [facility] 01-05-2024 Functional Status N/A [facility] 12-27-2023 Functional Status N/A [facility] 07-05-2023 Functional Status N/A [facility] 12-28-2022 Functional Status N/A [facility] 04-27-2022 Functional Status N/A [facility] Functional observable [facility] Mental Status Date Assessment Result Facility 10-23-2022 Cognitive functions 23-Oct-19 2311:49 [facility] Clinical Notes 04-27-2022 to 01-13-2024 Note Date [...] Locations R1: This test was performed at: [facility], [address] [place] [address], [address] [place] [address], [facility] Comment on above: Performed By: #### 2 [id number], [id number] #### [facility] [address] [place] [id number] 01-13-2024 Note Microbiology PROCEDURE: Blood Culture Charcoal [...] Locations R1: This test was performed at: [facility] [address] [place] [address], [address] [place] [address], [facility] Comment on above: Performed By: #### 2 [id number], [id number] #### [facility] [address] [place] [address] 01-05-2024 Hospital Discharg e instructions Patient Education 01/05/2024 21:23:20 Chronic Obstructive Pulmonary Disease, Zsej-ng-Kmpe Chronic Obstructive Pulmonary Disease Chronic obstructive pulmonary [...] Follow these instructions at home: Medicines Take hvrz-xna-srihdza and prescription medicines only as told by [...] keep yourself as healthy as possible. Take yytw-bqm-slipjsy and prescription medicines only as told by your doctor. If you smoke, stop. Smoking makes the problem worse. This information is not intended to replace advice given to you by your health care provider. Make sure you discuss any questions you have with your health care provider. Document Revised: 08/12/2021 Document Reviewed: 08/12/2021 [employer] Patient Education 2022 [employer]. Follow Up Care 01/05/2024 17:38:36 With:mL Posada Address: [address] [place] [phone]- [phone] Business (1) When:01/08/2024 21:01:21 Comments:Take the steroids once daily until you have completed the course, use the nebulizers every 4 hours for the next 2 to 3 days then decrease to as needed. He is follow-up with your primary care doctor in the next 2 to 3 days. Please return to the ED for any new or worsening symptoms. With:JUDAH ALEJANDRA Address: [address] [place] [phone]- Business (1) When:Within 3 Day(s) [facility] 01-05-2024 Evaluation + Plan note Extrac estelle from: Title:ED Note Author:Davi Mccall M.D. te:01/05/24 1. Chest pain (R07.9: [...] Therapy PT & PTT Rapid COVID Antigen ([facility]) Saline Lock Insert Troponin 0 Hr. Troponin [...] Date:07/10/2024 11:30:00 AM Scheduled Provider:Lorenzo STILL MD Location:[facility] Appointment Type:URO Office Visit Diagnostic Tests Pending * Blood Culture Charcoal 01/05/24 * Blood Culture Charcoal 01/05/24 Future Scheduled Tests Laboratory* PSA Total 07/05/23 [facility]03-11-2024 Hospital Discharge instructions Patient Education 12/27/2023 [...] if anything looks unusual. Men with a pfcduv-mpwa-nofcux risk for skin cancer may want to see a quality systems specialist (chief reservoir engineering) for an annual body check. What are the benefits of screening? Cancer screening is done to look for cancer in the very early stages, before it spreads and becomesharder to treat and before you would start to notice symptoms. Finding cancer early improves the chances of successful treatment. It may save your life. Where to find more information [employer]: www.cancer.org Centers for Disease Control and Prevention: www.cdc.gov National Cancer [place]: www.cancer.gov Contact a health care provider if: [...] provider. Document Revised: 03/02/2022 Document Reviewed: 08/30/2020 [employer] Patient Education 2022 [employer]. Follow Up Care 07/05/2023 11:48:50 With:TESSY MORE, Lorenzo Azul, URL Address: [facility] [address] [place] [address] [phone] When: Unknown Comments:6 months w/ PSA and possible Lupron [facility] 09-18-2023 Hospital Discharge instructions Patient Education [...] urethra. Follow these instructions at home: Take eyrw-pce-iafxuaw and prescription medicines only as told by [...] provider. Document Revised: 04/22/2022 Document Reviewed: 04/22/2022 [employer] Patient Education 2022 [employer]. Follow Up Care 12/28/2022 13:54:45 With:TESSY MORE, Lorenzo Azul, URL Address: [facility] [address] [place] [address]- [phone] When:Within 6 Month(s) Comments:w/PSA [facility] [place] 03-13-2023 Hospital Discharge instructions Patient [...] who: Are older than age 65. Are -Australian. Are obese. Have a family history of [...] cells. Follow these instructions at home: Take rxof-jiy-idgabbt and prescription medicines only as told by [...] 10/04/2006 Document Revised: 09/16/2018 Document Reviewed: 06/14/2017 [employer] Patient Education 2020 [employer]. Follow Up Care 07/31/2022 10:51:30 With:TESSY MORE, Lorenzo Azul, URL Address: [facility] [address] , [place] [address]- When: Unknown [facility] 01-08-2023 NoteSend Summary: Discharge Summary Providers: Provider RoleProvider Name AttendingFeng Winston ReferringMarkerStacy Maria PrimaryJudah Ledesma Note Recipients: Judah Ledesma MD - [id number] [] Marker, Stacy Cornejo MD - [id number] [] Discharge: Summary: Admission Date: .22-Oct-2022 04:30:00 Discharge Date: 25-Oct-2022 Attending Physician at Discharge: Feng Winston Admission Reason: chest pain Final Discharge Diagnoses: Chest pain Procedures: Left heart catheterization Condition at Discharge: Satisfactory Disposition at Discharge: .Home Vital Signs: T PRBPMAPSpO2 Value36.77647764/6852109% Date/Time10/25 7: 7: 15:1618 7: 7: 7:48 Range(36.1C - 36.5C ) (63 - 67 ) (18 - 18 ) (145 - 165 )/ (65 - 80 ) (94 - 109 ) (93% - 96% ) As of 25-Oct-2022 07:48:00, patient is on 2 L/min of oxygen via nasal cannula. Date: Weight/Scale Type:Height: 22-Oct-2022 04:4174.8 kg / uto192.1 cm Physical Exam: A&O x3 PERRL EOMI, [...] on Wednesday to schedule these appointments Location: [facility] [place] Follow-Up Appointment 03: Physician/Dept/Service: Dr. Everett- [employer] Consultant Reason for Referral: discuss report of event monitor Location: [facility] heart [facility] in [place] Discharge Medications: Home Medication Trelegy Ellipta 200 [...] Completion Last Updated: 25-Oct-2022 10:45 by Feng Winston)[facility] 2022 Hospital Discharge instructions* Follow Up Appointment 2:Physician/Dept/Service: 30-day event monitorReason for Referral: Monitor mariya rt rhythmLocation: [facility] heart office in [facility] Number: [phone] * Follow Up Appointment 3:Physician/Dept/Service: Dr. Everett- CardiologistReason for Referral: discuss report of event monitorLocation: [facility] heart office in [facility] [place]01-05-2023 NoteHistory & Physical Reviewed: I have reviewed [...] Completion Last Updated: 22-Oct-2022 11:21 by Arya Pineda)[facility]01-05-2023 NoteHistory of Present Illness: HPI: TAN LASSITER [...] management of NSTEMI Pt was transferred from [facility] for NSTEMI and new onset Afib [...] EKG was NSR, prolonged QT interval In [facility] trop was elevated CHADS-VASc score 1 - kinesiotherapist - EKG, CXR - Trop, BNP, CBC, [...] From Patient Profile - Adult v2 22-Oct-2022 04:41[facility]07-11-2022 Hospital Discharge instructions Patient Education 04/27/2022 12:17:44 [...] who: Are older than age 65. Are -Australian. Are obese. Have a family history of [...] cells. Follow these instructions at home: Take ynus-hmb-wtdwywi and prescription medicines only as told by [...] 10/04/2006 Document Revised: 09/16/2018 Document Reviewed: 06/14/2017 [employer] Patient Education 2020 [employer]. Follow Up Care 10/27/2021 14:18:56 With:TESSY MORE, Lorenzo Azul, URL Address: [facility] [address] , [place] [address] [phone] When:Within 3 Month(s) Comments:f/u PSA in 3 months [facility] consrgi note Author Rodney [facility]Sum[facility] July 09, 2023 2:06pm Note Date/Time July 09, 2023 2:07pm [facility] [address] [place] [id number] Plastic Surgery Consult Note Signed Patient: Farhan Lassiter MR#: [id number] : 1950 Acct:[id number] Age/Sex: 72 / M Adm Date: 3 Loc: ER Room: Type: [facility] ER Attending Dr: Copies to: MD Abrahan Joel MD~ HPI Consult Narrative Date of Consultation: 07/09/23 History of Present Illness: Mr. Lassiter is a 72 year old male status post dog bite to his lip and neck. 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 Denies any other injuries. Review of Systems Review of Systems All other systems reviewed & are negative unless noted below or in HPI [facility] Medical History (Updated 07/09/23 @ 14:03 by [...] signed by MD Rodney Julio> 07/09/23 1406 [facility] Work Phone: Evaluation + Plan note Future Appointments Appointment Date:07/31/2022 09:45:00 AM Scheduled Provider:Lorenzo STILL MD Location:[facility] Appointment Type:URO Office Visit Diagnostic Tests Pending * PSA Total 04/27/22 [facility] evaluation + Plan note Future Appointments Appointment Date:12/28/2022 01:30:00 PM Scheduled Provider:Lorenzo STILL MD Location:[facility] Appointment Type:URO Office Visit [facility] evaluation + Plan note Future Appointments Appointment Date:07/02/2023 11:00:00 AM Scheduled Provider:Lorenzo STILL MD Location:[facility] Appointment Type:URO Office Visit Diagnostic Tests Pending * PSA Total 12/28/22 [facility] evaluation + Plan note Future Appointments Appointment Date:12/27/2023 11:30:00 AM Scheduled Provider:Lorenzo STILL MD Location:[facility] Appointment Type:URO Office Visit Future Scheduled Tests Laboratory* PSA Total 07/05/23 [facility] evaluation + Plan note Future Appointments Appointment Date:07/10/2024 11:30:00 AM Scheduled Provider:Lorenzo STILL MD Location:[facility] Appointment Type:URO Office Visit Diagnostic Tests Pending * PSA Total 12/27/23 Future Scheduled Tests Laboratory* PSA Total 07/05/23 [facility] evaluation + Plan note Future Appointments Appointment Date:07/10/2024 11:30:00 AM Scheduled Provider:Lorenzo STILL MD Location:[facility] Appointment Type:URO Office Visit Future Scheduled Tests Laboratory* PSA Total [facility]05[facility]23 [facility] App[facility]ments Appointment Date:01/27/2024 12:30:00 PM Scheduled Provider: [facility] Type:PUL Pulmonary Function Test (FT) Appointment Date:01/27/2024 01:30:00 PM Scheduled Provider: Location[facility] Appointment Type:PUL Six Minute Walk Test (FT) Appointment Date:02/14/2024 09:45:00 AM Scheduled Provider:Lm Posada MD Location[facility] Appointment Type:Pulmonary Follow Up (FT) Appointment Date:07/10/2024 11:30:00 AM Scheduled Provider:Lorenzo STILL MD Location:[facility] Appointment Type:URO Office Visit Future Scheduled Tests Laboratory* PSA Total 07[facility]05/23 [facility] Appointments Appointment Date:02/14/2024 09:45:00 AM Scheduled Provider:Lm Posada MD [facility] Appointment Type:Pulmonary Follow Up (FT) Appointment Date:07/10/2024 11:30:00 AM Scheduled Provider:Lorenzo STILL MD Location:[facility] Appointment Type:URO Office Visit Future Scheduled Tests Laboratory* PSA Total [facility]05[facility]23 [facility] Cardiovascular: Regular, rate and rhythm, no [...] in upper lobesPsychological: Appropriate mood and behavior [facility] noteNo assessment information available [facility] Work Phone: History of Present illness Narrative* Patient is seen by me for the first time. He apparently was briefly hospitalized in [place] and transferred to [facility]. The original reason for this is unclear. Nonetheless in [facility] he was evaluated with coronary angiography and [...] with primary care CS only as needed. -[facility] Heart-[address] DO Work Phone: Hospital course Narrative No data available for this section [facility] Hospital Discharge instructions No data available for this section [facility] Hospital Discharge instructions Additional Instructions DISCHARGE [...] the incision. PLEASE NOTIFY OUR OFFICE at [phone] if you: -Develop a fever of 101 [...] rate. FOLLOW UP -Call the office at [phone] for a follow up appointment 1 week. * AFTER HOURS PHONE NUMBER [phone] *[facility] Work Phone: Progress note No data available for this section [facility] reason for referral (narrative)* Reason for Referral: decline in self care performance [facility] Summary Purpose Family History No Family History [...] DATE CREATED AUTHOR AUTHOR'S ORGANIZ ATION 10/28/2021 [facility] dical Specialist DATE CREATED AUTHOR AUTHOR'S ORGANIZ ATION 10/28/2022 [facility] [place] [facility] DATE CREATED AUTHOR AUTHOR'S ORGANIZ ATION 10/31/2022 [facility] DATE CREATED AUTHOR AUTHOR'S ORGANIZ ATION 12/08/2022 [facility] DATE CREATED AUTHOR AUTHOR'S ORGANIZ ATION 12/15/2022 [facility] DATE CREATED AUTHOR AUTHOR'S ORGANIZ ATION 07/11/2023 [facility] DATE CREATED AUTHOR AUTHOR'S ORGANIZ ATION 10/28/2023 [facility] dical Specialists EPIC DATE CREATED AUTHOR AUTHOR'S ORGANIZ ATION 02/17/2024 [facility] DATE CREATED AUTHOR AUTHOR'S ORGANIZ ATION 02/29/2024 [facility] Care Team (unrecognized sect ion and content) [...] Physician: Dr. Allan sent to: [employer] number [id number] applied.TAN is here for the application of aOrdering Physician:Event Monitor:TAN is here for the application of a 30 day event monitor in office., Diagnosis: PSVTOrdering Physician: Dr. Allan sent to: [employer] number [id number] applied.TAN is here for the application of aOrdering Physician:Event Monitor:TAN is here for the application of a 30 day event monitor in office., Diagnosis: PSVTOrdering Physician: Dr. Allan sent to: [employer] number [id number] applied.TAN is here for the application of [...] BE BASED ON THE PRIMARY CLINICAL RECORDS. [employer] [facility]. provides no warranty or guarantee of the accuracy or completeness of information in this document.
[2024-03-07] VITALS (21 sets, daily range): BP systolic 119–162; BP diastolic 66–83; PULSE 66–106; TEMP 36.3–37.4; O2SAT 94–97
[2024-03-07 00:22] LABS: Lactate/Lactic Acid 2.8 mmol/L (0.4-2.0)
[2024-03-07] MEDS: 0.9 % SODIUM CHLORIDE 1,000 ML 100 ML IV ×3 (00:41→22:56)
[2024-03-07] MEDS: REMDESIVIR 100 MG in 0.9 % SODIUM CHLORIDE 100 ML 200 MG IV ×2 (01:33→17:25)
[2024-03-07] MEDS: GUAIFENESIN 600 MG TAB.ER.12H PO ×3 (01:34→20:37)
[2024-03-07 04:57] LABS: Basophils Percent Auto 0.2 % (0.2-2.0); Hemoglobin 12.3 g/dL (14.0-18.0); Immature Granulocytes Abs Auto 0.09 10^3/uL (0.00-0.03); Immature Granulocytes Pct Auto 0.6 % (0.0-0.5); Lymphocytes Absolute Auto 0.3 10^3/uL (1.2-3.8); Lymphocytes Percent Auto 2.2 % (20.5-60.0); Mean Corpuscular HGB Conc 34.2 g/dL (29.9-35.2); Mean Corpuscular Hemoglobin 33.7 pg (25.9-34.0); Mean Corpuscular Volume 98.6 fL (80.0-94.0); Mean Platelet Volume 9.8 fL (9.5-13.5); Monocytes Absolute Auto 0.7 10^3/uL (0.3-0.8); Neutrophils Absolute Auto 13.4 10^3/uL (1.4-6.5); Platelet Count 213 10^3/uL (150-450); Red Blood Count 3.65 10^6/uL (4.70-6.10); Red Cell Distribution Width 14.2 % (11.0-15.0); White Blood Count 14.5 10^3/uL (4.0-11.0)
[2024-03-07 05:17] LABS: Alanine Aminotransferase 92 U/L (16-63); Albumin Globulin Ratio 0.8; Albumin Level 2.8 g/dL (3.4-5.0); Alkaline Phosphatase 65 U/L (46-116); Anion Gap 11.5; Aspartate Amino Transferase 84 U/L (15-37); BUN Creatinine Ratio 16.6; Bilirubin Total 0.6 mg/dL (0.2-1.0); Calcium 8.6 mg/dL (8.5-10.1); Carbon Dioxide 24.8 mmol/L (21.0-32.0); Chloride 105 mmol/L (98-107); Estimated GFR (African America 58 (>=60); Estimated GFR (Non-African Ame 47 (>=60); Globulin 3.3 g/dL; Glucose 104 mg/dL (74-106); Potassium 4.3 mmol/L (3.5-5.1); Sodium 137 mmol/L (136-145); Total Protein 6.1 g/dL (6.4-8.2)
[2024-03-07] MEDS: LOPERAMIDE HCL 1 MG/7.5 ML LIQUID PO ×3 (05:36→17:34)
--- OUTSIDE RECORDS SUMMARY | 2024-03-07 07:27 | XMS_ITS | CCD ---
Author Organization [facility] ion [facility] Care Team Providers Care Card Mounter Name Role Phone JUDAH ALEJANDRA Primary Care Physician [phone] Judah Ledesma Unavailable Unavailable Unavailable Judah Ledesma [...] Toney Attending Unavailable Alejandra II, Judah Fowler [facility] Unavail able Stacy Akbar Referring Unavailable Palmer, Dr. Goran Jackson Referring Charley vailable Alejandra II, Judah Malcolm [facility] Unavail able Palmer, Dr. Goran Jackson Attending Charley vailable Alejandra [facility] Unavail able McGuinn II, Dr. Jc Ventura Attending Unavailable McGuinn II, Dr. Jc Ventura Referring Unavailable Alejandra II, Judah Fowler [facility] Unavail able Piotr, Dr. Loomis Attending Unavailable Piotr, Dr. Loomis Referring Unavailable MD Rodney Julio Emergency Provider [phone] MD Abrahan Sands Primary Care Provider [phone] Abrahan Sands Primary Care Unavailable Rodney Julio Attending Unavailable Rodney Julio Admitting Unavailable ABRAHAN SANDS Attending Unavailable ABRAHAN SANDS Primary Care Physician DALIATAN Ritter Referring Unavailable DALIATAN Ritter Primary Care Unavailable Lorenzo STILL Attending Unavailable Lorenzo STILL Attending Unavailable KAT SAUCEDO Attending Unavailab le [place], Bashar X Attending Unavailable NONE, XXXX Referring Unavailable [place], Bashar X Admitting Unavailable [place], Bashar X Attending Unavailable [place], Bashar X Referring Unavailable [place], Bashar X Admitting Unavailable KAT SAUCEDO Admitting Unavailab KAT Singh Attending Unavailab Lorenzo Sotelo Admitting Unavailable Lorenzo STILL Attending Unavailable Hajdari, Astrit H Attending Unavailable NONE, XXXX Referring Unavailable [place], Bashar X Attending Unavailable Lorenzo STILL Attending Unavailable Allergies Allergy Classification Reported Allergen(s) Allergy Type Date of Onset Reaction(s) Facility (13 sources) Penicillin; Translations: [penicillin] Drug Allergy rash [facility] (6 sources) Penicillins; Translations: [Penicillins] Allergy to drug (finding) 3 Anaphylaxis [facility] (1 source) Penicillins Drug allergy (disorder) 3 [facility] (2 sources) predniSONE; Translations: [prednisone] Drug Allergy 3 Difficulty Breathing [facility] (1 source) Penicillins Drug allergy (disorder) 3 [facility] Medications Current Medications Medication Drug Class(es) Dates Sig (Normalized) Sig (Original) albuterol 0.83 mg/ml inhalation solution (15 sources) beta2-Adrenergic Agonist Start: 02-14-2024 take 2.5 mg by inhalation every six hours for wheezing albuterol 0.083% Inh Clarisse 3 mL 2.5 mg, 3 mL, Inhalation, q6hr for wheezing, 60 EA, Refill(s) 11, [id number], 177, cm, 02/14/24 10:05:00 EDT, Height/Length Dosing, 78, kg, 02/14/24 10:05:00 EDT, Weight Dosing Start Date: 02/14/24 Status: Ordered Start: 01-05-2024 take 2.5 mg by inhal ation every six hours for wheezing albuterol 0.083% Inh Clarisse 3 mL 2.5 mg, 3 mL, Inhalation, q6hr for wheezing, 60 EA, Refill(s) 0, [facility] #[id number], 177, cm, 01/05/24 17:52:00 EDT, Height/Length Dosing, [...] 90 tab(s), Refills(s) 3, [id number], 177, cm, 12/27/23 12:11:00 EDT, Height/Length Dosing, [...] 90 tab(s), Refills(s) 3, [id number], 177, cm, 07/05/23 11:01:00 EDT, Height/Length Dosing, [...] day(s), 10.7 gm, Refill(s) 11, [id number], 177, cm, 02/14/24 10:05:00 EDT, Height/Length Dosing, 78, kg, 02/14/24 10:05:00 EDT, Weight Dosing Start Date: 02/14/24 Stop Date: 02/08/25 Status: Ordered enzalutamide 40 mg oral capsule (2 sources) Androgen Receptor Inhibitor Start: 07-31-2022 take 4 capsules by mouth once daily enzalutamide 40 mg oral capsule 160 mg = 4 cap(s), Oral, Daily, # 120 cap(s), Refills(s) 11, Pharmacy: [facility] #[id number], 177, cm, 07/31/22 10:17:00 EDT, Height/Length Dosing, [...] 03/02/19 Status: Ordered take 3 tablets by [facility] every week methotrexate 2.5 mg [...] day(s), # 5 tab(s), Refills(s) 0, Pharmacy: [facility] #[id number], 177, cm, 01/05/24 17:52:00 EDT, Height/Length Dosing, [...] day(s), # 28 blister(s), Refills(s) 11, Pharmacy: [facility] #[id number], 177, cm, 01/13/24 9:28:00 EDT, Height/Length Dosing, [...] 07-09-2023 Episodic Other aftercare (1 source) Other senior care (current) drug therapy; Translations: [OTH [facility] CURRENT [...] Range Facility Physician Orderon 02-28-2024 Physician Order [id number]#2.00TIFF Sent order to [phone] [facility] Comment on above: Result Comment: Elec tronically Signed By: Nancy Pressure Supervisor, Virgilio Lechuga\.br\Date and Time Signed: 02/28/24 14:38 EDT Consent for Treatmenton 01-17 Consent for Treatment [id number]#1.00TIFF [facility] Heart and Vascular Office/Cl inic Noteon 02-14-2024 [...] wheezing, 60 EA, Refill(s) 11, [facility] #[id number], 177, cm, 02/14/24 10:05:00 EDT, Height/Length Dosing, 78, kg, 02/14/24 10:05:00 EDT, Weight Dosing budesonide/formoterol/glycop yrrolate, 2 puff(s), Inhalation, BID for 30 day(s), 10.7 gm, Refill(s) 11, [facility] #96664, 177, cm, 02/14/24 10:05:00 EDT, Height/Length Dosing, 78, kg, 02/14/24 10:05:00 EDT, Weight Dosing 2. Chronic respiratory failure (J96.10: Chronic respiratory failure, unspecified whether with hypoxia or hypercapnia) The patient qualifies for supplemental oxygen. He is active and mobile and would benefit from portable oxygen concentrator. He has been working with [facility] and order will be sent Follow-up No [...] Recorded pneumococcal 13-valent vaccine 01/23/2015 Recorded Normal [facility] Comment on above: Result Comment: Elec tronically Signed By: Swetha MORE, Lm Stahl\.br\Date and Time Signed: 02/14/24 12:12 EDT Physician Orderon 02-14-2024 Physician Order [id number]#1.00TIFF Normal [facility] Pulmonary Function Studieson 02-05-2024 Pulmonary Function Studies [...] cannula. READ BY: Stephanie Simmons Dictated: 01/29/2024 [id number] Transcribed: 02/01/2024 [facility] Comment on above: Result Comment: Elec tronically Signed By: Pavel MORE, Satnam Mcclain\.br\Date and Time Signed: 02/05/24 00:38 EDT Physician Orderon 02-02-2024 Physician Order [id number]#1.00TIFF [facility] Consent for Treatmenton 01-16 Consent for Treatment [id number]#1.00TIFF [facility] Pulmonary Function Testson 0 01-27-2024 Pulmonary Function Tests [id number]#1.00TIFF [facility] Respiratory Documentationon 01-27-2024 Respiratory Documentation [id number]#1.00TIFF [facility] Consent for Treatmenton 12-17 Consent for Treatment [id number]#1.00TIFF [facility] Heart and Vascular Office/Cl inic Noteon 01-13-2024 [...] day(s), # 28 blister(s), Refills(s) 11, Pharmacy: [facility] #[id number], 177, cm, 01/13/24 9:28:00 EDT, Height/Length Dosing, [...] Recorded pneumococcal 13-valent vaccine 01/23/2015 Recorded Normal [facility] Comment on above: Result Comment: Elec tronically Signed By: Swetha MORE, Lm Stahl\.br\Date and Time Signed: 01/13/24 18:07 EDT Physician Orderon 01-13-2024 Physician Order [id number]#1.00TIFF Normal [facility] Discharge Instructionson Discharge Instructions [id number]#1.00TIFF Normal [facility] XR Chest Single Viewon 01-05 XR Chest [...] mGy = na DAP = na Normal [facility] BMPon 01-05-2024 Anion gap [Moles/Vol] 12 mmol/L Normal 6-16 [facility] Comment on above: Performed By: #### 2 809665, 02276196, 66119183, 7794553, 19112516, 40713278 #### [facility] [address] [place] [address] Calcium [Mass/Vol] 9.3 mg/dL Normal 8.9-11.1 [facility] Comment on above: Performed By: #### 2 415521, 40991739, 16138663, 3355973, 57270342, 50315197 #### [facility] [address] [place] [address] Chloride [Moles/Vol] 107 mmol/L Normal 101-111 [facility] Comment on above: Performed By: #### 2 089417, 85121285, 92239766, 1870631, 64070226, 66979606 #### [facility] [address] [place] [address] CO2 [Moles/Vol] 26 mmol/L Normal 21-31 [facility] Comment on above: Performed By: #### 2 234000, 70926465, 32465093, 4227557, 50351934, 50036639 #### [facility] [address] [place] [address] Creatinine [Mass/Vol] 0.9 mg/dL Normal 0.5-1.3 [facility] Comment on above: Performed By: #### 2 703790, 53043810, 55037727, 4105203, 46954437, 12696270 #### [facility] [address] [place] [address] Glucose [Mass/Vol] 89 mg/dL Normal 55-199 [facility] Comment on above: Performed By: #### 2 001592, 49076860, 03509065, 7070407, 82526496, 51900355 #### [facility] [address] [place] [address] Potassium [Moles/Vol] 4.3 mmol/L Normal 3.5-5.3 [facility] Comment on above: Performed By: #### 2 973387, 52448930, 41863612, 8515640, 23653846, 22609576 #### [facility] [address] [place] [address] Sodium [Moles/Vol] 141 mmol/L Normal 135-145 [facility] Comment on above: Performed By: #### 2 628304, 10986303, 16790730, 6828524, 45729218, 14275703 #### [facility] [address] [place] [address] Urea nitrogen [Mass/Vol] 18 mg/dL Normal 5-21 [facility] Comment on above: Performed By: #### 2 978395, 34198114, 01653141, 0369096, 10094599, 81587488 #### [facility] [address] [place] [address] Urea nitrogen/Creatinine [Mass ratio] 20 No Units Normal 10-20 [facility] Comment on above: Performed By: #### 2 004746, 17161745, 77675904, 0494379, 93340753, 13234626 #### [facility] [address] [place] [address] BNPon 4 Natriuretic peptide B (Bld) [Mass/Vol] 68 pg/mL Normal 5-80 [facility] Comment on above: Performed By: #### 2 382564, 10967772, 61536444, 2518125, 70318381, 44299222 #### [facility] [address] [place] [address] CBC w/ Auto Diffon 4 Basophils/100 WBC (Bld) 0.9 % Normal 0.0-2.0 [facility] Comment on above: Performed By: #### 2 123941, 88828819, 97123172, 4309177, 33254866, 77519374 #### [facility] [address] [place] [address] Basophils/Leukocytes Auto (Bld) [Pure # fraction] 0.1 E9/L Normal 0.0-0.2 [facility] Comment on above: Performed By: #### 2 152593, 70760585, 74323973, 3416582, 45945414, 69430444 #### [facility] [address] [place] [address] Eosinophils (Bld) [#/Vol] 0.2 E9/L Normal 0.0-0.5 [facility] Comment on above: Performed By: #### 2 460017, 68643114, 22663234, 0131093, 86972655, 38543466 #### [facility] [address] [place] [address] Eosinophils/100 WBC (Bld) 2.2 % Normal 0.0-8.0 [facility] Comment on above: Performed By: #### 2 490947, 93859172, 95041551, 7439964, 44474214, 89450613 #### [facility] [address] [place] [address] Erythrocyte distribution width (RBC) [Ratio] 14.7 % High 10.9-14.2 [facility] Comment on above: Performed By: #### 2 860612, 79344565, 46050201, 1252461, 75542221, 56325386 #### [facility] [address] [place], [place] [address] Hematocrit (Bld) [Volume fraction] 39.6 % Normal 37.7-49.0 [facility] Comment on above: Performed By: #### 2 216743, 76424781, 33235377, 3369549, 95345039, 80918498 #### [facility] [address] [place] [address] Hemoglobin (Bld) [Mass/Vol] 13.3 g/dL Low 13.5-17.5 [facility] Comment on above: Performed By: #### 2 339798, 04110095, 66988386, 4091187, 93684259, 02162412 #### [facility] [address] [place] [address] Lymphocytes (Bld) [#/Vol] 1.4 E9/L Normal 1.0-4.0 [facility] Comment on above: Performed By: #### 2 541319, 50311524, 35447807, 7842939, 97878626, 85138869 #### [facility] [address] [place] [address] Lymphocytes/100 WBC (Bld) 18.9 % Normal 14.0-50.0 [facility] Comment on above: Performed By: #### 2 118379, 79080176, 05997507, 5993837, 23837786, 38739161 #### [facility] [address] [place] [address] MCH (RBC) [Entitic mass] 32.2 pg Normal 27.0-34.0 [facility] Comment on above: Performed By: #### 2 029070, 52333109, 64641561, 7247851, 55025926, 28632323 #### [facility] [address] [place] [address] MCHC (RBC) [Mass/Vol] 33.7 g/dL Normal 31.4-36.0 [facility] Comment on above: Performed By: #### 2 114900, 63245364, 54192670, 5403860, 82265004, 78475480 #### [facility] [address] [place] [address] MCV (RBC) [Entitic vol] 95.8 fL Normal 80.0-100.0 [facility] Comment on above: Performed By: #### 2 959375, 68056400, 86546340, 0653045, 98862671, 89469635 #### [facility] [address] [place] [address] Monocytes (Bld) [#/Vol] 0.5 E9/L Normal 0.2-1.0 [facility] Comment on above: Performed By: #### 2 117635, 37608652, 53514242, 8691288, 29644025, 62863339 #### [facility] [address] [place] [address] Neutrophils (Bld) [#/Vol] 5.3 E9/L Normal 2.0-7.5 [facility] Comment on above: Performed By: #### 2 502370, 47052393, 09236305, 9453493, 69410907, 17037067 #### [facility] [address] [place] [address] Neutrophils/100 WBC (Bld) 71.3 % Normal 36.0-75.0 [facility] Comment on above: Performed By: #### 2 321740, 07598336, 17918467, 5494584, 94706072, 73491407 #### [facility] [address] [place] [address] Platelet mean volume (Bld) [Entitic vol] 7.8 fL Normal 6.4-10.8 [facility] Comment on above: Performed By: #### 2 304140, 93068436, 06035549, 5659687, 32233115, 54253748 #### [facility] [address] [place] [address] Platelets (Bld) [#/Vol] 327.0 E9/L Normal 150.0-500. 0 [facility] Comment on above: Performed By: #### 2 191761, 54816944, 30494009, 9433006, 38408326, 86942897 #### [facility] [address] [place] [address] RBC (Bld) [#/Vol] 4.1 E12/L Low 4.3-5.9 [facility] Comment on above: Performed By: #### 2 622429, 40733853, 83454039, 2706900, 54117158, 83968838 #### [facility] [address] [place] [address] WBC corrected for nucl RBC Auto (Bld) [#/Vol] 7.4 E9/L Normal 4.0-11.0 [facility] Comment on above: Performed By: #### 2 426761, 04262890, 68363008, 4748781, 98886586, 99536187 #### [facility] [address] [place] [address] CHEMISTRYOrdered By: SYSTEM SYSTEM on 01-05-2024 Troponin [...] Sensitivity Troponin I Instructions For Use, Caryl [place], May 2018) Anion gap [Moles/Vol] 12 mmol/L [...] 68 pg/mL Normal 5 - 80 pg/mL [facility] HemeManSS COAGULATIONOrdered By: Loy Haywood on 01-05-2024 aPTT Coag (PPP) [Time] 32.1 s Normal 25.1 - 36.5 second(s) [facility] Auto Coag Comment on above: Interpretive Data: [...] the same coagulation reagent and instrumentation as [facility]. Currently there are no coagulation studies available worldwide for children to 14 days, and no normal ranges. Heparin therapeutic range (represented by Anti-Factor Xa activity of 0.2 - 0.4 U/mL) corresponds to PTT of 56.6 - 109.0 sec. INR Coag (PPP) [Relative time] 1.04 {INR} Invalid Interpretation Code [facility] Auto Coag Comment on above: Interpretive Data: I NR results are specifically intended to assess patients stabilized on long-term Anticoagulation therapy suggested INR s Less Intensive Anticoagulation 2.0 3.0 Conventional Range 3.0 4.5 PT Coag (PPP) [Time] 11.6 s Normal 9.4 - 1 2.5 second(s) [facility] Auto Coag Comment on above: Interpretive Data: [...] the same coagulation reagent and instrumentation as [facility]. Currently there are no coagulation studies available worldwide for children to 14 days, and no normal ranges. Consent for Treatmenton 12-17 Consent for Treatment [id number]#1.00TIFF Normal [facility] ED Clinical Summaryon 2023 ED Clinical Summary (Inserted Image. Charley ble to display) [place] [id number] ED Clinical Summary Person Information Name: TAN LASSITER/[facility] Age: 73 Years : 1950 Sex: Male Language: [place]ese PCP: JUDAH ALEJANDRA MD Marital Status: Single [...] 01/05/2024 21:23:20 01/05/2024 21:23:20 01/05/2024 21:23:20 ADDRESS: [address] [place] [id number] PHYS DOC NOTES: Addendum by Landy Najera DO on January 05, 2024 21:10:51 EDT MEDICAL INFORMATION: Prescriptions Given: New Medications [facility] #[id number], [address] [place], [place] [id number], [phone] predniSONE (predniSONE 50 mg Tab) 1 Tablets By Mouth every day for 5 Days. Refills: 0. Medications to Continue Taking That Have Changed [facility] #[id number], [address] [place], [place] [id number], [phone] START: albuterol (albuterol 0.083% Inh Clarisse 3 [...] EDUCATION INFORMATION: Instructions: Chronic Obstructive Pulmonary Disease, Rcqa-yy-Pjoo Follow up: With: Address: When: Lm Posada [address] [place] [phone] Business (1) In 3 days 01/08/2024 Comments: [...] worsening symptoms. With: Address: When: JUDAH ALEJANDRA [address] [place] [address] [phone] Business (1) In 3 days DIAGNOSIS: 1:Chest pain; 2:COPD with acute exacerbation Normal [facility] ED Note-Physicianon 01-05-20 ED Note-Physician Basic Information [...] patient's friend states that he went to [facility] to be tested for home oxygen tank [...] and Complexity of Problems Differential Diagnosis: [] [facility] Data External documents reviewed: [] [...] 125 mg (more content not included)... Normal [facility] Comment on above: Result Comment: Elec tronically [...] these instructions at home: Medicines ? Take diyh-qer-pnphapr and prescription medicines only as told by [...] may repres (more content not included)... Normal [facility] ED Patient Summaryon 024 ED Patient Summary (Inserted Image. Charley ble to display) [address] [address] Patient Discharge Instructions Person Information Name: TAN LASSITER Age: 73 Years Arrival Date: 01/05/2024 17:38:13 Discharge Diagnosis: 1:Chest pain; 2:COPD with acute exacerbation Primary Care Physician: JUDAH ALEJANDRA MD Provider Information Primary Provider: Davi Mccall M.D. Advanced Supply Chain Tech:None The exam and treatment you received in the Emergency Department were for an urgent problem and are not intended as complete care. It is important that you follow up with a doctor, nurse practitioner, or physician?s speech language pathology assistant for ongoing care. If your symptoms [...] Follow-up Instructions: With: Address: When: Lm Posada [address] [place], [place] [phone] (1) In 3 days 01/08/2024 Comments: Take [...] worsening symptoms. With: Address: When: JUDAH Howell [facility] [place] [address] [employer] (1) In 3 days In the event that this physician does not participate in your insurance network, please consult with your insurance company to find a nearby participating provider. Patient Education Materials: Chronic Obstructive Pulmonary Disease, Xbdd-bu-Goes A MESSAGE TO ALL PATIENTS REGARDING OPIOIDS PRESCRIPTION OPIOIDS: WHAT YOU NEED TO KNOW Prescription opioids can be used to help relieve izaqzyhd-zs-vxdnto pain and are often prescribed following a [...] take-back program (more content not included)... Normal [facility] HEMATOLOGYOrdered By: SYSTEM SYSTEM on 01-05-2024 Basophils/100 [...] NEG Ctl Pass (01/05/24 7:18 PM) Normal [facility] Man Sero Rapid COV Int POS Ctl Pass (01/05/24 7:18 PM) Normal [facility] Man Sero SARS-CoV+SARS-CoV-2 (COVID-19) Ag IA.rapid Ql (Resp) Not Detected 6 (01/05/24 7:18 PM) Normal Not Detected [facility] Man Sero Comment on above: Interpretive Data: T javier Milyoni Veritor System for Rapid Detection of SARS-CoV-2 [...] revoked sooner. Monitor Recordon 01-05-2024 Monitor Record [id number]#1.00TIFF Normal [facility] PT & PTTon 01-05-2024 aPTT Coag (PPP) [Time] 32.1 second(s) Normal 25.1-36.5 [facility] Comment on above: Result Comment: Para meter [...] the same coagulation reagent and instrumentation as [facility]. Currently there are no coagulation studies available worldwide for children to 14 days, and no normal ranges. Heparin therapeutic range (represented by Anti-Factor Xa activity of 0.2 - 0.4 U/mL) corresponds to PTT of 56.6 - 109.0 sec. Performed By: #### 2 287493, 46447996, 56050533, 4792831, 45028529, 41244856 #### [facility] [address] [place] [address] INR Coag (PPP) [Relative time] 1.04 {INR} Invalid Interpretation Code [facility] Comment on above: Result Comment: INR results are specifically intended to assess patients stabilized on long-term Anticoagulation therapy suggested INR?s ?Less Intensive Anticoagulation? 2.0 ? 3.0 Conventional Range 3.0 ? 4.5 Performed By: #### 2 871999, 59940523, 34630711, 0682052, 43237381, 67997395 #### [facility] [address] [place] [address] PT Coag (PPP) [Time] 11.6 second(s) Normal 9.4-12.5 [facility] Comment on above: Result Comment: 15 d [...] were obtained from a study by Arian Street, et al. prepared from 1437 samples obtained at 7 different centers using the same coagulation reagent and instrumentation as [facility]. Currently there are no coagulation studies available worldwide for children to 14 days, and no normal ranges. Performed By: #### 2 934971, 11563296, 83351439, 6842277, 12520303, 29615035 #### [facility] [address] [place] [address] Rapid COVID Antigen ([facility])on 01-05-2024 Rapid COV Int NEG Ctl Pass Normal [facility] Comment on above: Performed By: #### 2 [id number] #### [facility] [address] [place] [address] Rapid COV Int POS Ctl Pass Normal [facility] Comment on above: Performed By: #### 2 [id number] #### [facility] [address] [place] [address] SARS-CoV+SARS-CoV-2 (COVID-19) Ag IA.rapid Ql (Resp) Not detected Normal Not Detected [facility] Comment on above: Result Comment: The [employer] Exchange[employer]? System for Rapid Detection of SARS-CoV-2 is [...] or revoked sooner. Performed By: #### 2 [id number] #### [facility] [address] [place] [address] Troponin 0 Hr.on 01-05-2024 Troponin 10.40 pg/mL Low 15.90-38.4 0 [facility] Comment on above: Result Comment: The 95% CI (Confidence Interval) PPV (Positive Predictive Value) for myocardial infarction in females is 38 pg/mL, in males 51 pg/mL. The results should be used in conjunction with clinical conditions of myocardial infarction. (Access High Sensitivity Troponin I Instructions For Use, YEOXIN VMall, May 2018) Performed By: #### 2 [id number], [id number], [id number], [id number], [id number], [id number] #### [facility] [address] [place] [address] Troponin 3 Hr.on 01-05-2024 Troponin 10.20 pg/mL Low 15.90-38.4 0 [facility] Comment on above: Result Comment: The 95% CI (Confidence Interval) PPV (Positive Predictive Value) for myocardial infarction in females is 38 pg/mL, in males 51 pg/mL. The results should be used in conjunction with clinical conditions of myocardial infarction. (Access High Sensitivity Troponin I Instructions For Use, YEOXIN VMall, May 2018) Performed By: #### 2 [id number], [id number], [id number], [id number], [id number], [id number] #### [facility] [address] [place] [address] eGFRon 01-05-2024 eGFR 89 mL/min/1.73 m2 Normal >=59 [facility] Comment on above: Order Comment: Order added by Discern Expert. Performed By: #### 2 [id number], [id number], [id number], [id number], [id number], [id number] #### [facility] [address] [place] [address] Result Letter Officeon 12-29 Result Letter Office (Inserted Image. Un able to display) December 30, 2023 TAN LASSITER [address] [place] [address] : 1950 Dear Mr Fajardo Evangelista, We [...] your next appointment. [facility] [address] [address] Normal [facility] Ambulatory Visit Summaryon 0 12-27-2023 Ambulatory Visit [...] Lorenzo STILL MD Where: [facility] Jean Claude Normal [facility] CHEMISTRYOrdered By: SYSTEM SYSTEM on 12-27-2023 Prostate [...] for this result was chemiluminescence using Caryl [employer]'s Access Hybritech PSA reagent. PSA Totalon 12-27-2023 Prostate specific Ag [Mass/Vol] 2.7 ng/mL Normal 0.1-3.5 [facility] Comment on above: Result Comment: The concentration of PSA determined by different manufacturers can vary due to differences in assay methods and reagent specificity. Values obtained from different assay methods cannot be used interchangeably. The methodology used for this result was chemiluminescence using Caryl [place]'s Access Hybritech PSA reagent. Performed By: #### 2 [id number], [id number], [id number], [id number], [id number], [id number] #### [facility] [address] [place] [address] Patient Educationon 12-27-19 Patient Education Oncology Cancer [...] if anything looks unusual. Men with a kxeyvg-ylyc-gsaugh risk for skin cancer may want to see a hide and skin fleshing machine operator (bedspread cutter) for an annual body check. What are the benefits of screening? Cancer screening is done to look for cancer in the very early stages, before it spreads and becomes harder to treat and before you would start to notice symptoms. Finding cancer early improves the chances of successful treatment. It ma (more content not included)... Normal [facility] Urology Office/Clinic Noteon 12-27-2023 Urology Office/Clinic Note [...] [facility] [address], [place] [phone] Additional Instructions: 6 months w/ PSA and [...] influenza virus vac (more content not included)... [facility] Comment on above: Result Comment: Elec tronically Signed By: TESSY MORE, Lorenzo Azul\.br\Date and Time Signed: 12/27/23 13:11 EDT\.br\Electronically Co-Signed By: Zeina Alejandra\.br\Date and Time Co-Signed: 12/27/23 13:08 EDT Pre-Certification Formon Pre-Certification Form [id number]:127 Normal [facility] Ambulatory Visit Summaryon 0 07-05-2023 Ambulatory Visit Summary TAN LASSITER :1950 Visit Date:07/05/2023 Ambulatory Visit Instructions Your Diagnosis Increasing PSA level after treatment for prostate cancer Enlarged prostate with urinary obstruction Nocturia Tests Performed Urnls Dip Stick Auto w/o Microscopy POC 10043 Your Care Team Attending Physician - TESSY [...] MORE, Lorenzo Azul Where: [facility] Jean Claude Normal [facility] Patient Educationon 07-05-20 Patient Education Urology Benign [...] Follow these instructions at home: ? Take kirn-apa-jrumjhy and prescription medicines only as told by [...] medicine (more content not included)... Normal [facility] Urology Office/Clinic Noteon 07-05-2023 Urology Office/Clinic [...] 6 months [facility] [address], [place] [phone] Additional Instructions: w/PSA Patient Education Benign Prostatic [...] 50 mg= (more content not included)... Normal [facility] Comment on above: Result Comment: Elec tronically Signed By: Lorenzo STILL MD\.br\Date and Time Signed: 07/05/23 11:47 EDT\.br\Electronically Co-Signed By: Shannan Washington\.br\Date and Time Co-Signed: 07/05/23 11:46 EDT Insurance Correspondenceon 0 07-01-2023 Insurance Correspondence [id number]:127 Normal [facility] Ambulatory Visit Summaryon 0 06-29-2023 Ambulatory Visit [...] MORE, Lorenzo Azul Where: [facility] PSA Totalon 06-29-2023 Prostate specific Ag [Mass/Vol] 3.3 ng/mL Normal 0.1-3.5 [facility] Comment on above: Result Comment: The concentration of PSA determined by different manufacturers can vary due to differences in assay methods and reagent specificity. Values obtained from different assay methods cannot be used interchangeably. The methodology used for this result was chemiluminescence using YEOXIN VMall's [employer] Hybritech PSA reagent. Performed By: #### 2 [id number], [id number], [id number], [id number], [id number], [id number] #### [facility] [address] [place] [address] Provider Letteron 06-17-2023 Provider Letter (Inserted Image. Charley ble to display) June 17, 2023 TAN LASSITER [facility] [place] [address] : 1950 Dear Tan, You have an appointment with Dr. Lorenzo Still on 07/02/23 which will need to be rescheduled since he will be out of the office that day. I rescheduled you on 07/05/23 at 10:45. If this time does not work for you please call or stop by the [place] office at your earliest convenience so that we can find a time that would work better for you. Thank you for your prompt attention to this matter. Sincerely, [facility] [address], [place] [address] [facility] Office Visit (Cardiology)on 12-07-2022 Follow-up visit Diagnoses/Problems Assessed Paroxysmal SVT (supraventricular tachycardia) (427.0) (I47.1) COPD (chronic obstructive pulmonary disease) (496) (J44.9) Former smoker (V15.82) (Z87.891) Body mass index (BMI) of 23.0 to 23.9 in adult (V85.1) (Z68.23) Orders Paroxysmal SVT (supraventricular tachycardia) Start: Metoprolol Tartrate 50 MG Oral Tablet; Take 1 tablet daily SocHx: Former smoker Tobacco Use Screening; Status:Complete; Done: [id number] Unlinked Stop: Metoprolol Tartrate 50 MG Oral [...] time. He apparently was briefly hospitalized in [place] and transferred to [facility]. The original reason for this is unclear. Nonetheless in [facility] he was evaluated with coronary angiography and [...] negative for complaint. Vitals Vital Signs Recorded: [id number] 09:32AM Heart Rate72, L Radial Dcmilfag836, LUE, Sitting Awmxufjmk40, LUE, Sitting Height5 ft 10 in Tbartk429 lb BMI Jzikugaltt80.24 kg/m2 BSA Calculated1.91 Tobacco Useb) No PHQ-2 [...] Screening.on 023 Adult depression screening assessment No [facility] [address] DO Work Phone: Fall risk assessment a) No falls within the last year [facility] [address] DO Work Phone: Tobacco use status CPHS b) No [facility] [address] DO Work Phone: CHEMISTRYOrdered By: SYSTEM [...] 0.9 mg/dL Normal 0.5 - 1.3 mg/dL [facility] [place] Remisol GFR/1.73 sq M.predicted among blacks MDRD (S/P/Bld) [Vol rate/Area] mL/min/1.73 m2 Normal >=59mL/min /1.73 m2 [facility] [place] Chem S GFR/1.73 sq M.predicted among non-blacks MDRD (S/P/Bld) [Vol rate/Area] mL/min/1.73 m2 Normal >=59mL/min /1.73 m2 [facility] [place] Chem S Globulin (S) [Mass/Vol] 3.2 g/dL [...] 18 mg/dL Normal 5 - 21 mg/dL [facility] [place] Remisol Urea nitrogen/Creatinine [Mass ratio] 20 mg/mg Normal 10 - 20 FT Remisol Cardiovasc Arrhythmia Result son 10-29-2022 Cardiovasc Arrhythmia Results Reason For Visit Event Monitor: TAN is here for the application of a 30 day event monitor in office., Diagnosis: PSVT Ordering Physician: Dr. Saldaña Enrollment sent to: [employer] Monitor number [id number] applied. TAN is here for the application [...] (I47.1) Patient Discussion/Summary Strips sent over from [employer] with a patient activated symptom of passed out. Dr. Montelongo was notified. Patient was in sinus rhythm. Sent over to [place] for Dr. Everett to review. per suad--was ordered in hospital per Dr. Saldaña. Applied in [place], Dr. Everett will be the managing physician. Strip given to Dr. Garrett Barr MD to review in Dr. Jc Everett MD absence . Future Appointments Date/TimeProviderSpecialtySi te 12/07/2022 09:50 Jc Hayes, BZBryatewtqf723 [facility] [place] [address] DO Signatures Electronically signed by : Leanne Larkin L.P.N.; Nov 03 2022 4:00PM EST (Author) Electronically signed by : Goran Palmer MD; Dec 04 2022 10:16AM EST (Author) Normal [facility] BASIC METABOLIC PANELon 01-0 Anion gap [Moles/Vol] 11 mmol/L Normal 10 - 20 [facility] Comment on above: Performed By: #### B MP ####[facility] [place], [place] [id number] Calcium [Mass/Vol] 8.8 mg/dL Normal 8.6 - 10.3 [facility] Comment on above: Performed By: #### B MP ####[facility] [place], [place] [id number] Chloride [Moles/Vol] 106 mmol/L Normal 98 - 107 [facility] Comment on above: Performed By: #### B MP ####[address] [id number] Creatinine [Mass/Vol] 0.71 mg/dL Normal 0.50 - 1.30 [facility] Comment on above: Performed By: #### B MP ####[address] [id number] eGFR MALE >90 Normal >90 [facility] Comment on above: Result Comment: CALC ULATIONS OF ESTIMATED GFR ARE PERFORMED USING THE 2020 CKD-EPI STUDY REFIT EQUATION WITHOUT THE RACE VARIABLE FOR THE IDMS-TRACEABLE CREATININE METHODS. https://jasn.asnjournals.org/content//ASN.3775070 988 Performed By: #### B MP ####[address] [id number] Glucose [Mass/Vol] 111 mg/dL High 74 - 99 [facility] Comment on above: Performed By: #### B MP ####[address] [id number] HCO3 (Bld) [Moles/Vol] 28 mmol/L Normal 21 - 32 [facility] Comment on above: Performed By: #### B MP ####[address] [id number] Potassium [Moles/Vol] 4.5 mmol/L Normal 3.5 - 5.3 [facility] Comment on above: Performed By: #### B MP ####[address] [id number] Sodium [Moles/Vol] 140 mmol/L Normal 136 - 145 [facility] Comment on above: Performed By: #### B MP ####[address] [id number] Urea nitrogen [Mass/Vol] 19 mg/dL Normal 6 - 23 [facility] Comment on above: Performed By: #### B MP ####[address] [id number] CBCon 2022 Erythrocyte distribution width (RBC) [Ratio] 12.2 % Normal 11.5 - 14.5 [facility] Comment on above: Performed By: #### C BC ####[facility] [place], [place] [id number] Hematocrit (Bld) [Volume fraction] 39.3 % Low 41.0 - 52.0 [facility] Comment on above: Performed By: #### C BC ####[address] [id number] Hemoglobin (Bld) [Mass/Vol] 13.4 g/dL Low 13.5 - 17.5 [facility] Comment on above: Performed By: #### C BC ####[address] [id number] MCHC (RBC) [Mass/Vol] 34.1 g/dL Normal 32.0 - 36.0 [facility] Comment on above: Performed By: #### C BC ####[address] [id number] MCV (RBC) [Entitic vol] 92 fL Normal 80 - 100 [facility] Comment on above: Performed By: #### C BC ####[address] [id number] Platelets (Bld) [#/Vol] 273 10*3/uL Normal 150 - 450 [facility] Comment on above: Performed By: #### C BC ####[address] [id number] RBC 4.25 x10E12/L Low 4.50 - 5.90 [facility] Comment on above: Performed By: #### C BC ####[address] [id number] WBC (Bld) [#/Vol] 7.6 10*3/uL Normal 4.4 - 11.3 [facility] Comment on above: Performed By: #### C ####[facility] [place], [place] [id number] Laboratory - Chemistry and C hemistry - challengeon 2022 Anion gap [Moles/Vol] 11 mmol/L 10 - [address] [facility] Heart-[place]aki [address] DO Work Phone: Calcium [Mass/Vol] 8.8 mg/dL 8.6 - 10.3 [facility] [address] DO Work Phone: [phone] Chloride [Moles/Vol] 106 mmol/L 98 - 107 [facility] Heart-[place]aki [address] DO Work Phone: [phone] CO2 [Moles/Vol] 28 mmol/L 21 - [address] [facility] Matt [address] 250 DO Work Phone: Creatinine [Mass/Vol] 0.71 mg/dL See Below [facility] Matt [address] 250 DO Work Phone: Comment on above: Reference Range: 0.5 0 - 1.30 Glucose [Mass/Vol] 111 mg/dL above high threshold 74 - [address] [facility] Matt [address] DO Work Phone: [phone] Potassium [Moles/Vol] 4.5 mmol/L 3.5 - 5.[address] [facility] Matt [address] 250 DO Work Phone: [phone] Sodium [Moles/Vol] 140 mmol/L 136 - 145 [facility] Pepe-Maki [address] DO Work Phone: [phone] Urea nitrogen [Mass/Vol] 19 mg/dL 6 - [address] [facility] Matt [address] 250 DO Work Phone: [phone] Laboratory - Hematology and Cell countson 2022 Erythrocyte distribution width (RBC) [Ratio] 12.2 % See Below [facility] [place] [address] 250 DO Work Phone: Comment on above: Reference Range: 11. 5 - 14.5 Hematocrit (Bld) [Volume fraction] 39.3 % below low threshold See Below [facility] [place] 250 DO Work Phone: Comment on above: Reference Range: 41. 0 - 52.0 Hemoglobin (Bld) [Mass/Vol] 13.4 g/dL below low threshold See Below [facility] Matt Dalton DO Work Phone: Comment on above: Reference Range: 13. 5 - 17.5 MCHC (RBC) [Mass/Vol] 34.1 g/dL See Below [facility] Matt Dalton DO Work Phone: Comment on above: Reference Range: 32. 0 - 36.0 MCV (RBC) [Entitic vol] 92 fL 80 - [address] [facility] Matt Dalton DO Work Phone: Platelets (Bld) [#/Vol] 273 10*3/uL 150 - [address] [facility] Matt Dalton DO Work Phone: RBC (Bld) [#/Vol] 4.25 {x10E12/L} below low threshold See Below [facility] Matt Dalton DO Work Phone: Comment on above: Reference Range: 4.5 0 - 5.90 WBC (Bld) [#/Vol] 7.6 10*3/uL 4.4 - 11.3 [facility] Matt Dalton DO Work Phone: No Panel Informationon 10-25 >90 >[address] [facility] Matt Dalton DO Work Phone: Comment on above: CALCULATIONS OF SILVIANO MATED GFR ARE PERFORMED USING THE 2020 CKD-EPI STUDY REFIT EQUATION WITHOUT THE RACE VARIABLE FOR THE IDMS-TRACEABLE CREATININE METHODS.https://jasn.asnjournals.org/content//ASN .2617594873 TROPONIN I, HIGH SENSITIVITY on 2022 TROPONIN I, HIGH SENSITIVITY 61 ng/L Critically high 0 - 20 [facility] Comment on above: Order Comment: Melody [...] performed using a different testing methodology at [facility] than at other [facility]. Direct result comparisons should only be made within the same method. Called- RB to Lanny Peña, 2022 06:42 Performed By: #### T [facility] ####[facility] [place], [place] [id number] Tropinin I.cardiac panel High sensitivity method 61 ng/L Critically high 0 - 20 -[facility]-[place] [address] DO Work Phone: [...] performed using a different testing methodology at [facility] than at other [facility]. Direct result comparisons should only be made within the same method. Called- RB to Lanny Peña, 2022 06:42 BASIC METABOLIC PANELon - Anion gap [Moles/Vol] 10 mmol/L Normal 10 - 20 [facility] Comment on above: Performed By: #### B MP ####[facility] [place], [place] [id number] Calcium [Mass/Vol] 8.6 mg/dL Normal 8.6 - 10.3 [facility] Comment on above: Performed By: #### B MP ####[address] [id number] Chloride [Moles/Vol] 106 mmol/L Normal 98 - 107 [facility] Comment on above: Performed By: #### B MP ####[address] [id number] Creatinine [Mass/Vol] 0.82 mg/dL Normal 0.50 - 1.30 [facility] Comment on above: Performed By: #### B MP ####[address] [id number] eGFR MALE >90 Normal >90 [facility] Comment on above: Result Comment: CALC ULATIONS OF ESTIMATED GFR ARE PERFORMED USING THE 2020 CKD-EPI STUDY REFIT EQUATION WITHOUT THE RACE VARIABLE FOR THE IDMS-TRACEABLE CREATININE METHODS. https://jasn.asnjournals.org/content//ASN.0151007 988 Performed By: #### B MP ####[address] [id number] Glucose [Mass/Vol] 114 mg/dL High 74 - 99 [facility] Comment on above: Performed By: #### B MP ####[address] [place], [place] [id number] HCO3 (Bld) [Moles/Vol] 26 mmol/L Normal 21 - 32 [facility] Comment on above: Performed By: #### B MP ####[address] [id number] Potassium [Moles/Vol] 4.2 mmol/L Normal 3.5 - 5.3 [facility] Comment on above: Performed By: #### B MP ####[facility] [place], [place] [id number] Sodium [Moles/Vol] 138 mmol/L Normal 136 - 145 [facility] Comment on above: Performed By: #### B MP ####[facility] [place], [place] [id number] Urea nitrogen [Mass/Vol] 19 mg/dL Normal 6 - 23 [facility] Comment on above: Performed By: #### B MP ####[address] [id number] CBCon 10-24-2022 Erythrocyte distribution width (RBC) [Ratio] 12.5 % Normal 11.5 - 14.5 [facility] Comment on above: Performed By: #### C BC ####[address] [id number] Hematocrit (Bld) [Volume fraction] 38.5 % Low 41.0 - 52.0 [facility] Comment on above: Performed By: #### C BC ####[address] [id number] Hemoglobin (Bld) [Mass/Vol] 13.1 g/dL Low 13.5 - 17.5 [facility] Comment on above: Performed By: #### C BC ####[address] [id number] MCHC (RBC) [Mass/Vol] 34.0 g/dL Normal 32.0 - 36.0 [facility] Comment on above: Performed By: #### C BC ####[address] [id number] MCV (RBC) [Entitic vol] 92 fL Normal 80 - 100 [facility] Comment on above: Performed By: #### C BC ####[address] [id number] Platelets (Bld) [#/Vol] 239 10*3/uL Normal 150 - 450 [facility] Comment on above: Performed By: #### C BC ####[facility] [place], [place] [id number] RBC 4.18 x10E12/L Low 4.50 - 5.90 [facility] Comment on above: Performed By: #### C BC ####[facility] [place], [place] [id number] WBC (Bld) [#/Vol] 7.7 10*3/uL Normal 4.4 - 11.3 [facility] Comment on above: Performed By: #### C BC ####[facility] [place], [place] [id number] Daily Progress Note-Medicine on 10-24-2022 Daily Progress [...] down. Objective Data: Objective Information: T PRBPMAPSpO2 Value36.48381360/5995277% Date/Time10/24 7: 7: 7: 7: 7: 7:56 [...] Radiology Results: Results: Conclusion: Preliminary Cardiology Report [address] [address] Preliminary Vascular Lab Report [facility] Patient Name: TAN LASSITER Reading Physician: [id number] Kylah Copeland MD, RPVI Study Date: 10/24/2022 Referring Physician: JANINE OPALALVIN MRN/PID: [id number] PCP: Accession/Order#: [id number] CC Report to: Date of : 1950 Technologist: Jacqueline Forman RDMS Gender: M Technologist 2: Admission Status: Inpatient Location Performed: [facility] Diagnosis/ICD: I73.9-Peripheral vascular disease, unspecified Procedure/CPT: 05820 Peripheral artery [facility]HE[facility] Only-[id number] Smoker: Former, 1ppd x 40yrs. Pertinent History: [...] Normal Ranges (more content not included)... Normal [facility] Laboratory - Chemistry and C hemistry - challengeon 10-24-2022 Anion gap [Moles/Vol] 10 mmol/L 10 - [address] [facility] Matt bl[address]ely 250 DO Work Phone: [phone] Calcium [Mass/Vol] 8.6 mg/dL 8.6 - 10.3 [facility] Matt blakely 250 DO Work Phone: [phone] Chloride [Moles/Vol] 106 mmol/L 98 - 107 [facility] Matt blakely 250 DO Work Phone: [phone] CO2 [Moles/Vol] 26 mmol/L 21 - [address] [facility] Matt blakely [facility] DO Work Phone: [phone] Creatinine [Mass/Vol] 0.82 mg/dL See Below [facility] Matt blakely [facility] DO Work Phone: [phone] Comment on above: Reference Range: 0.5 0 - 1.30 Glucose [Mass/Vol] 114 mg/dL above high threshold 74 - [address] [facility] Matt Dalton DO Work Phone: [phone] Potassium [Moles/Vol] 4.2 mmol/L 3.5 - 5.[address] [facility] Matt Dalton DO Work Phone: [phone] Sodium [Moles/Vol] 138 mmol/L 136 - 145 [facility] Matt Dalton DO Work Phone: [phone] Urea nitrogen [Mass/Vol] 19 mg/dL 6 - [address] [facility] Matt blakely [facility] DO Work Phone: [phone] Laboratory - Hematology and Cell countson 10-24-2022 Erythrocyte distribution width (RBC) [Ratio] 12.5 % See Below [facility] Matt Dalton DO Work Phone: [phone] Comment on above: Reference Range: 11. 5 - 14.5 Hematocrit (Bld) [Volume fraction] 38.5 % below low threshold See Below [facility] Matt [facility] DO Work Phone: [phone] Comment on above: Reference Range: 41. 0 - 52.0 Hemoglobin (Bld) [Mass/Vol] 13.1 g/dL below low threshold See Below [facility] LMN-1Mary Ellen Dalton DO Work Phone: Comment on above: Reference Range: 13. 5 - 17.5 MCHC (RBC) [Mass/Vol] 34.0 g/dL See Below [facility] Matt Dalton DO Work Phone: Comment on above: Reference Range: 32. 0 - 36.0 MCV (RBC) [Entitic vol] 92 fL 80 - [address] [facility] Matt blakely 250 DO Work Phone: [phone] Platelets (Bld) [#/Vol] 239 10*3/uL 150 - [address] [facility] Matt Dalton DO Work Phone: RBC (Bld) [#/Vol] 4.18 {x10E12/L} below low threshold See Below [facility] Matt Dalton DO Work Phone: Comment on above: Reference Range: 4.5 0 - 5.90 WBC (Bld) [#/Vol] 7.7 10*3/uL 4.4 - 11.3 [facility] Matt blakely 250 DO Work Phone: No Panel Informationon 10-24 >90 >[address] [facility] Matt Dalton DO Work Phone: Comment on above: CALCULATIONS OF SILVIANO MATED GFR ARE PERFORMED USING THE 2020 CKD-EPI STUDY REFIT EQUATION WITHOUT THE RACE VARIABLE FOR THE IDMS-TRACEABLE CREATININE METHODS.https://jasn.asnjournals.org/content/early//ASN .0900552321 VASC LAB [facility] onlyon VASC LAB [facility] only [place] [id number] Vascular Lab Report [facility] Patient Name: TAN Montes De Oca Physician: [id number] Kylah Copeland MD, RPVI Study Date: 10/24/2022 Referring Physician: JANINE HAQ MRN/PID: [id number] PCP: Accession/Order#: [id number] CC Report to: Date of : 1950 Technologist: Jacqueline Forman RDMS Gender: M Technologist 2: Admission Status: Inpatient Location Performed: [facility] Diagnosis/ICD: I73.9-Peripheral vascular disease, unspecified Procedure/CPT: 59217 Peripheral artery MICHEAL Only-14944 Smoker: Former, 1ppd x 40yrs. Pertinent History: [...] Left Brachial Pressure 132 mmHg 134 mmHg [id number] Kylah Copeland MD, RPDL Final Normal [facility] VASC LAB PVR MICHEAL only -[facility] [address] DO Work Phone: BNPon 10-23-2022 Natriuretic peptide B (Bld) [Mass/Vol] 284 pg/mL High 0 - 99 [facility] Comment on above: Result Comment: . <1 00 pg/mL - Heart failure unlikely 100-299 pg/mL - Intermediate probability of acute heart . failure exacerbation. Correlate with clinical . context and patient history. >=300 pg/mL - Heart Failure likely. Correlate with clinical . context and patient history. BNP testing is performed using different testing methodology at [facility] than at other [facility]. Direct result comparisons should only be made within the same method. Performed By: #### B NP2 ####[address] [id number] CBC AND DIFFERENTIALon 10-23 % AUTOMATED IMMATURE GRAN 0.2 % Normal 0.0 - 0.9 [facility] Comment on above: Result Comment: Renetta ture Granulocyte Count (IG) includes promyelocytes, myelocytes and metamyelocytes but does not include bands. Percent differential counts (%) should be interpreted in the context of the absolute cell counts (cells/L). Performed By: #### C BCDF ####[address] [id number] Basophils (Bld) [#/Vol] 0.04 10*3/uL Normal 0.00 - 0.10 [facility] Comment on above: Performed By: #### C BCDF ####[address] [id number] Basophils/100 WBC (Bld) 0.5 % Normal 0.0 - 2.0 [facility] Comment on above: Performed By: #### C BCDF ####[address] [id number] Eosinophils (Bld) [#/Vol] 0.14 10*3/uL Normal 0.00 - 0.40 [facility] Comment on above: Performed By: #### C BCDF ####[address] [id number] Eosinophils/100 WBC (Bld) 1.7 % Normal 0.0 - 6.0 [facility] Comment on above: Performed By: #### C BCDF ####[address] [id number] Erythrocyte distribution width (RBC) [Ratio] 12.7 % Normal 11.5 - 14.5 [facility] Comment on above: Performed By: #### C BCDF ####[facility] [place], [place] [id number] Hematocrit (Bld) [Volume fraction] 37.5 % Low 41.0 - 52.0 [facility] Comment on above: Performed By: #### C BCDF ####[address] [place], [place] [id number] Hemoglobin (Bld) [Mass/Vol] 12.6 g/dL Low 13.5 - 17.5 [facility] Comment on above: Performed By: #### C BCDF ####[address] [place], [place] [id number] Lymphocytes (Bld) [#/Vol] 0.71 10*3/uL Low 0.80 - 3.00 [facility] Comment on above: Performed By: #### C BCDF ####[address] [id number] Lymphocytes/100 WBC (Bld) 8.8 % Normal 13.0 - 44.0 [facility] Comment on above: Performed By: #### C BCDF ####[address] [id number] MCHC (RBC) [Mass/Vol] 33.6 g/dL Normal 32.0 - 36.0 [facility] Comment on above: Performed By: #### C BCDF ####[address] [id number] MCV (RBC) [Entitic vol] 94 fL Normal 80 - 100 [facility] Comment on above: Performed By: #### C BCDF ####[address] [id number] Monocytes (Bld) [#/Vol] 0.48 10*3/uL Normal 0.05 - 0.80 [facility] Comment on above: Performed By: #### C BCDF ####[address] [id number] Monocytes/100 WBC (Bld) 6.0 % Normal 2.0 - 10.0 [facility] Comment on above: Performed By: #### C BCDF ####[address] [place], [place] [id number] Neutrophils (Bld) [#/Vol] 6.65 10*3/uL High 1.60 - 5.50 [facility] Comment on above: Performed By: #### C BCDF ####[address] [id number] Neutrophils/100 WBC (Bld) 82.8 % Normal 40.0 - 80.0 [facility] Comment on above: Performed By: #### C BCDF ####[address] [id number] Platelets (Bld) [#/Vol] 232 10*3/uL Normal 150 - 450 [facility] Comment on above: Performed By: #### C BCDF ####[address] [id number] RBC 3.99 x10E12/L Low 4.50 - 5.90 [facility] Comment on above: Performed By: #### C BCDF ####[address] [id number] WBC (Bld) [#/Vol] 8.0 10*3/uL Normal 4.4 - 11.3 [facility] Comment on above: Performed By: #### C BCDF ####[address] [id number] COMPREHENSIVE PANELon 2022 Albumin [Mass/Vol] 3.1 g/dL Low 3.4 - 5.0 [facility] Comment on above: Performed By: #### C MP ####[address] [id number] ALP [Catalytic activity/Vol] 48 U/L Normal 33 - 136 [facility] Comment on above: Performed By: #### C MP ####[address], [place] [id number] ALT [Catalytic activity/Vol] 52 U/L Normal 10 - 52 [facility] Comment on above: Result Comment: Sarah ents treated with Sulfasalazine may generate falsely decreased results for ALT. Performed By: #### C MP ####[facility] [place] [address] [id number] Anion gap [Moles/Vol] 11 mmol/L Normal 10 - 20 [facility] Comment on above: Performed By: #### C MP ####[facility] [place] [address] [id number] AST [Catalytic activity/Vol] 29 U/L Normal 9 - 39 [facility] Comment on above: Performed By: #### C MP ####[address] [id number] Bilirubin [Mass/Vol] 0.3 mg/dL Normal 0.0 - 1.2 [facility] Comment on above: Performed By: #### C MP ####[address] [id number] Calcium [Mass/Vol] 8.5 mg/dL Low 8.6 - 10.3 [facility] Comment on above: Performed By: #### C MP ####[address] [id number] Chloride [Moles/Vol] 109 mmol/L High 98 - 107 [facility] Comment on above: Performed By: #### C MP ####[address] [id number] Creatinine [Mass/Vol] 0.85 mg/dL Normal 0.50 - 1.30 [facility] Comment on above: Performed By: #### C MP ####[address] [id number] eGFR MALE >90 Normal >90 [facility] Comment on above: Result Comment: CALC ULATIONS OF ESTIMATED GFR ARE PERFORMED USING THE 2020 CKD-EPI STUDY REFIT EQUATION WITHOUT THE RACE VARIABLE FOR THE IDMS-TRACEABLE CREATININE METHODS. https://jasn.asnjournals.org/content//ASN.7042225 988 Performed By: #### C MP ####[address] [id number] Glucose [Mass/Vol] 101 mg/dL High 74 - 99 [facility] Comment on above: Performed By: #### C MP ####[address] [place], [place] [id number] HCO3 (Bld) [Moles/Vol] 24 mmol/L Normal 21 - 32 [facility] Comment on above: Performed By: #### C MP ####[address] [place], [place] [id number] Potassium [Moles/Vol] 4.5 mmol/L Normal 3.5 - 5.3 [facility] Comment on above: Performed By: #### C MP ####[address] [id number] Protein [Mass/Vol] 5.9 g/dL Low 6.4 - 8.2 [facility] Comment on above: Performed By: #### C MP ####[address] [id number] Sodium [Moles/Vol] 139 mmol/L Normal 136 - 145 [facility] Comment on above: Performed By: #### C MP ####[address] [place], [place] [id number] Urea nitrogen [Mass/Vol] 29 mg/dL High 6 - 23 [facility] Comment on above: Performed By: #### C MP ####[address] [id number] Complete Blood Count + Diffe rentialon 10-23-2022 Basophils/100 WBC (Bld) 0.5 % 0.0 - 2.0 [facility] Work Phone: Erythrocyte distribution width (RBC) [Ratio] 12.7 % See Below [facility] [place] Work Phone: [phone] Comment on above: Reference Range: 11. 5 - 14.5 Hematocrit (Bld) [Volume fraction] 37.5 % below low threshold See Below [facility] [place] Work Phone: [phone] Comment on above: Reference Range: 41. 0 - 52.0 Hemoglobin (Bld) [Mass/Vol] 12.6 g/dL below low threshold See Below [facility] [place] Work Phone: [phone] Comment on above: Reference Range: 13. 5 - 17.5 Lymphocytes/100 WBC (Bld) 8.8 % See Below [facility] [employer] Work Phone: [phone] Comment on above: Reference Range: 13. 0 - 44.0 MCHC (RBC) [Mass/Vol] 33.6 g/dL See Below [facility] [employer] Work Phone: [phone] Comment on above: Reference Range: 32. 0 - 36.0 MCV (RBC) [Entitic vol] 94 fL 80 - 100 [facility] [employer] Work Phone: [phone] Monocytes/100 WBC (Bld) 6.0 % 2.0 - 10.0 [facility] [employer] Work Phone: [phone] Neutrophils/100 WBC (Bld) 82.8 % See Below [facility] Work Phone: [phone] Comment on above: Reference Range: 40. 0 - 80.0 Platelets (Bld) [#/Vol] 232 10*3/uL 150 - 450 [facility] [employer] Work Phone: [phone] RBC (Bld) [#/Vol] 3.99 {x10E12/L} below low threshold See Below [facility] [employer] Work Phone: [phone] Comment on above: Reference Range: 4.5 0 - 5.90 WBC (Bld) [#/Vol] 8.0 10*3/uL 4.4 - 11.3 [facility] Work Phone: Complete Blood Count + Differential 0.04 {x10E9/L} See Below [facility] Work Phone: Comment on above: Reference Range: 0.0 0 - 0.10 Complete Blood Count + Differential 0.14 {x10E9/L} See Below [facility] Work Phone: Comment on above: Reference Range: 0.0 0 - 0.40 Complete Blood Count + Differential 0.48 {x10E9/L} See Below [facility] Work Phone: Comment on above: Reference Range: 0.0 5 - 0.80 Complete Blood Count + Differential 0.71 {x10E9/L} below low threshold See Below [facility] Work Phone: Comment on above: Reference Range: 0.8 0 - 3.00 Complete Blood Count + Differential 6.65 {x10E9/L} above high threshold See Below [facility] Work Phone: Comment on above: Reference Range: 1.6 0 - 5.50 Complete Blood Count + Differential 1.7 % 0.0 - 6.0 [facility] Work Phone: [phone] Complete Blood Count + Differential 0.2 % 0.0 - 0.9 [facility] Work Phone: [phone] Comment on above: Immature Granulocyte Count (IG) [...] penicillin: Rash Objective: Objective Information: T PRBPMAPSpO2 [id number]/144114% Date/Time10/23 7:6 7: 12:301/6 7:401/6 7:401/6 7:40 [...] Count 0.04 Comprehensive Metabolic Panel Trending View [id number] 05:42:00 22-Oct-2022 05:50:00 Glucose, Anwja133 H 144 H NA139 138 K4.5 4.2 [...] other possibl (more content not included)... Normal [facility] Daily Progress Note-Cardiolo trevon 10-23-2022 Daily Progress Note-Cardiology Consult Type: subsequent visit/care Service: Cardiology Subjective Data: TAN LASSITER is a 71 year old Male who is Hospital Day # 2. 10/22/2022 cardiology consult: HPI: TAN LASSITER is a 71 year old Male who is hearing impaired was transferred from [facility] to [facility] on 10/22/2022 after presenting to [facility] emergency department with chief complaint of chest pain. Patient has history of deafness/hearing impairment and history of remote cochlear implant, he reads lips for communication. No family is present at time of cardiology consult. Information for consult obtained from speaking to patient and from review of paperwork sent from [facility] ED. 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 Yesterday he was getting ready to go to religious for a Bible study and had sudden [...] Portable chest x-ray showed clear lungs. In [place] emergency room patient was given Tylenol, aspirin, IV Cardizem, subcutaneous Lovenox, IV steroids, morphine, Zofran, IV fluids, and nebulizer. He converted to sinus rhythm. He was transferred to [facility] for further evaluation. This morning at [...] cancer, denies having any current cardiology care. [facility] heart cardiology consult was placed for [...] at times, former tobacco use listed as 17-lvpn-puoe history patient states that he quit smoking [...] PSVT Objective Data: Objective Information: T PRBPMAPSpO2 Value36.14433710/565763% Date/Time10/23 7: 7: 12: 7: 7: 7:40 Range(36.2C - 37C ) (65 - 82 ) (14 - 18 ) (97 - 137 )/ (51 - 71 ) (72 - 96 ) (93% - 97% ) As of 22-Oct-2022 21:23:00, patient is on 3 L/min of oxygen via nasal cannula. Highest temp of 37 C was recorded at (more content not included)... Normal [facility] Daily Progress Note-General Internal Medicineon 10-23-2022 [...] breath. Objective Data: Objective Information: T PRBPMAPSpO2 Value36.30198311/832011% Date/Time10/23 7: 7: 12: 7: 7: 7:40 [...] Updated: 23-Oct-2022 11:16 by Ricardo Myers) Normal [facility] Discharge Obscrua2jg 023 Discharge Profile2 Discharge Orders: Anticipated Discharge Date: Anticipated Discharge [id number] DNAR: Code Status at Discharge: Full Code Provider FINAL REVIEW of Orders: Final Review: Final Review of Medication Reconciliation and Orders Completedby Physician Reviewing ProviderFeng Winston MD at 25-Oct-2022 10:39:39 Appointments: Follow-Up Appointment 02: Physician/Dept/[id number]-vqg event monitor Reason for ReferralMonitor heart rhythm Call to Schedule inPlease call the office on Wednesday to schedule these appointments [facility] in [place] Phone [phone] Follow-Up Appointment 03: Physician/Dept/ServiceDr. Everett- Solutions Specialist Reason for Referraldiscuss report of event monitor [facility] heart office in [place] Electronic Signatures: Jaylin Gerard (CONTROLS ENGINEER-CHARGE ACCOUNT CLERK) (Signed 23-Oct-2022 14:53) Authored: Discharge Orders, Appointments, Gold Form - Accounting Lecturer Summary Feng Winston) (Signed 25-Oct-2022 10:39) Authored: Discharge Orders, Provider FINAL REVIEW of Orders Last Updated: 25-Oct-2022 10:39 by Feng Winston) Normal [facility] HEMOGLOBIN A1Con 10-23-2022 Glucose [Mass/Vol] 103 mg/dL Normal [facility] Comment on above: Performed By: #### H BA1E ####[id number] [place] [address] HbA1c (Bld) [Mass fraction] 5.2 % Normal [facility] Comment on above: Result Comment: Diag nosis of Diabetes-Adults Non-Diabetic: < or = 5.6% Increased risk for developing diabetes: 5.7-6.4% Diagnostic of diabetes: > or = 6.5% . Monitoring of Diabetes Age (y) Therapeutic Goal (%) Adults: >18 <7.0 Pediatrics: 13-18 <7.5 7-12 <8.0 0- 6 7.5-8.5 [employer] [place] [employer]. Diabetes Care 33(S1), Oct 2009. Performed By: #### H BA1E ####[id number] [place] [address] Hemoglobin A1Con 10-23-2022 Glucose [Mass/Vol] 103 mg/dL [facility] Work Phone: HbA1c (Bld) [Mass fraction] 5.2 % [facility] Work Phone: Comment on above: Diagnosis of Diabete s-Adults Non-Diabetic: < or = 5.6% Increased risk for developing diabetes: 5.7-6.4% Diagnostic of diabetes: > or = 6.5%. Monitoring of Diabetes Age (y) Therapeutic Goal (%) Adults: >18 <7.0 Pediatrics: 13-18 <7.5 7-12 <8.0 0- 6 7.5-8.5 [place] [employer]. Diabetes Care 33(S1), Oct 2009. LIPID PANEL (CORONARY RISK 2 )on 10-23-2022 Cholesterol [Mass/Vol] 129 mg/dL Normal 0 - 199 [facility] Comment on above: Result Comment: . [...] Metamizole dosing. Performed By: #### L IPID ####[address] [place], [place] [id number] Cholesterol in HDL [Mass/Vol] 36.8 mg/dL Abnormal [facility] Comment on above: Result Comment: . AGE VERY LOW LOW NORMAL HIGH 0-19 Y < 35 < 40 40-45 ---- 20-24 Y ---- < 40 >45 ---- >24 Y ---- < 40 40-60 >60 . Performed By: #### L IPID ####[address] [id number] Cholesterol in LDL [Mass/Vol] 77 mg/dL Normal 0 - 99 [facility] Comment on above: Result Comment: . NEAR BORD AGE DESIRABLE OPTIMAL HIGH HIGH VERY HIGH 0-19 Y 0 - 109 --- 110-129 >/= 130 ---- 20-24 Y 0 - 119 --- 120-159 >/= 160 ---- >24 Y 0 - 99 100-129 130-159 160-189 >/=190 . Performed By: #### L IPID ####[address] [id number] Cholesterol in VLDL [Mass/Vol] 15 mg/dL Normal 0 - 40 [facility] Comment on above: Performed By: #### L IPID ####[address] [place], [place] [id number] Cholesterol.total/Ch olesterol in HDL [Mass ratio] 3.5 {ratio} Normal [facility] Comment on above: Result Comment: REF VALUES DESIRABLE < 3.4 HIGH RISK > 5.0 Performed By: #### L IPID ####[address] [id number] Triglyceride [Mass/Vol] 74 mg/dL Normal 0 - 149 [facility] Comment on above: Result Comment: . [...] Metamizole dosing. Performed By: #### L IPID ####[facility] [place], [place] [id number] Laboratory - Chemistry and C hemistry - challengeon 10-23-2022 Albumin BCP dye [Mass/Vol] 3.1 g/dL below low threshold 3.4 - 5.0 [facility] Work Phone: [phone] ALP [Catalytic activity/Vol] 48 U/L 33 - 136 [facility] Work Phone: [phone] ALT With P-5'-P [Catalytic activity/Vol] 52 U/L 10 - 52 [facility] Work Phone: [phone] Comment on above: Patients treated wit h Sulfasalazine may generate falsely decreased results for ALT. Anion gap [Moles/Vol] 11 mmol/L 10 - 20 [facility] Work Phone: [phone] AST With P-5'-P [Catalytic activity/Vol] 29 U/L 9 - 39 [facility] Work Phone: [phone] Bilirubin [Mass/Vol] 0.3 mg/dL 0.0 - 1.2 [facility] Work Phone: [phone] Calcium [Mass/Vol] 8.5 mg/dL below low threshold 8.6 - 10.3 [facility] Work Phone: [phone] Chloride [Moles/Vol] 109 mmol/L above high threshold 98 - 107 [facility] Work Phone: [phone] CO2 [Moles/Vol] 24 mmol/L 21 - 32 [facility] Work Phone: [phone] Creatinine [Mass/Vol] 0.85 mg/dL See Below [facility] Work Phone: [phone] Comment on above: Reference Range: 0.5 0 - 1.30 Glucose [Mass/Vol] 101 mg/dL above high threshold 74 - 99 [facility] Work Phone: [phone] Natriuretic peptide B (Bld) [Mass/Vol] 284 pg/mL above high threshold 0 - 99 [facility] Work Phone: [phone] Comment on above: . <100 pg/mL - Heart failure [id number] pg/mL - Intermediate probability of acute heart. failure exacerbation. Correlate with clinical. context and patient history. >=300 pg/mL - Heart Failure likely. Correlate with clinical. context and patient history.BNP testing is performed using different testing methodology at [facility] than at other [facility]. Direct result comparisons should only be made within the same method. Potassium [Moles/Vol] 4.5 mmol/L 3.5 - 5.3 [facility] Work Phone: [phone] Protein [Mass/Vol] 5.9 g/dL below low threshold 6.4 - 8.2 [facility] Work Phone: [phone] Sodium [Moles/Vol] 139 mmol/L 136 - 145 [facility] Work Phone: [phone] Urea nitrogen [Mass/Vol] 29 mg/dL above high threshold 6 - 23 [facility] Work Phone: [phone]- Lipid Panelon 10-23-2022 Cholesterol [Mass/Vol] 129 mg/dL 0 - 199 [facility] Work Phone: [phone] Comment on above: . AGE DESIRABLE BORD [...] Cholesterol in HDL [Mass/Vol] 36.8 mg/dL Abnormal [facility] [employer] Work Phone: Comment on above: . AGE VERY LOW LOW N ORMAL HIGH 0-19 Y < 35 < 40 40-45 ---- 20- 24 Y ---- < 40 >45 ---- >24 Y ---- < 40 40-60 >60. Cholesterol in LDL [Mass/Vol] 77 mg/dL 0 - [address] [facility] [employer] Work Phone: Comment on above: . NEAR BORD AGE JERED RABLE OPTIMAL HIGH HIGH VERY HIGH 0-19 Y 0 - 109 --- 110-129 >/= 130 ---- 20-24 Y 0 - 119 --- 120-159 >/= 160 ---- >24 Y 0 - 99 100-129 130-159 160-189 >/=190. Cholesterol.total/Ch olesterol in HDL [Mass ratio] 3.5 {ratio} [facility] [employer] Work Phone: Comment on above: REF VALUESDESIRABLE < 3.4HIGH RISK > 5.0 Triglyceride [Mass/Vol] 74 mg/dL 0 - [address] [facility] [employer] Work Phone: Comment on above: . AGE [...] Lipid Panel 15 mg/dL 0 - 40 [facility] Work Phone: MAGNESIUMon 10-23-2022 Magnesium [Mass/Vol] 2.12 mg/dL Normal 1.60 - 2.40 [facility] Comment on above: Performed By: #### M G ####[facility] [place], [place] [id number] Magnesium, Serumon Magnesium [Mass/Vol] 2.12 mg/dL See Below [facility] Work Phone: Comment on above: Reference Range: 1.6 0 - 2.40 No Panel Informationon 10-23 >90 >90 [facility] Work Phone: Comment on above: CALCULATIONS OF SILVIANO MATED GFR ARE PERFORMED USING THE 2020 CKD-EPI STUDY REFIT EQUATION WITHOUT THE RACE VARIABLE FOR THE IDMS-TRACEABLE CREATININE METHODS.https://jasn.asnjournals.org/content//ASN .8546355442 Order Reconciliationon 10-23 Order Reconciliation Page 1 Discharge Reconciliation Document Reconciliation Type: Discharge requested on behalf of Feng Winston (Physician) done by Feng Winston) Discharge - Partial Reconciliation: 23-Oct-2022 13:41 by: Jaylin Gerard (CONTROLS ENGINEER-CHARGE ACCOUNT CLERK) Discharge - Reconciliation: 25-Oct-2022 10:41 by: Feng [...] 200 mcg-62.5 mcg-25 mcg/inh inhalation powder [facility] AT DISCHARGE DateReconciliation Comment/ Additional [...] 1 puff(s) inhaled once a day Normal [facility] T3 - Free Triiodothyronine, Serumon 10-23-2022 Free T3 [Mass/Vol] 2.3 pg/mL 2.3 - 4.2 [facility] Work Phone: TRIIODOTHYRONINE,FREEon TRIIODOTHYRONINE,AMIE E 2.3 pg/mL Normal 2.3 - 4.2 [facility] Comment on above: Performed By: #### T 3FRE ####[id number] [place] [address] TROPONIN I, HIGH SENSITIVITY on 10-23-2022 TROPONIN I, HIGH SENSITIVITY 393 ng/L High 0 - 20 [facility] Comment on above: Result Comment: . [...] performed using a different testing methodology at [facility] than at other [facility]. Direct result comparisons should only be made within the same method. This is a critical result. Per Laboratory policy, critical results for this test only qualify to the call list once per 24 hours. Performed By: #### T [facility] ####[facility] [place], [place] [id number] Tropinin I.cardiac panel High sensitivity method 393 ng/L above high threshold 0 - 20 [facility] Work Phone: Comment on above: .Less than [...] performed using a different testing methodology at [facility] than at other [facility]. Direct result comparisons should only be made [...] AlertFor Ebola-like Symptoms: Isolate Patient and Notify Provider/Technical Asst For Contact: Notify Provider/Technical Asst Advance Directive: Advance Directive/DNRno Advance Directive Information [...] Learning Preferencesverbal instruction Cultural Considerationsnone Developmental Considerationsnone [facility] Considerationsnone Learning Assessment (Other Learner): Other learner availableno Depression Screen: During the past month, have you often been bothered by feeling down, depressed or hopelessno During the past month, have you often had little interest or pleasure in doing thingsno Have you had any thoughts of harming anyone elseno Mayer Suicide: Risk Screen Not Applicable/Able to Answerable to be screened In the Past Month: Have you wished you were or could go to sleep and not wake upno In the Past Month: Have you had any actual thoughts of killing yourselfno Lifetime: Have you ever done, started to do, or prepared to do anything to end your lifeno Mayer Suicide Risknegative Adult Nutrition Screen: Have you [...] = No (more content not included)... Normal [facility] BLOOD CULTURE, BACTERIALon 0 10-22-2022 BLOOD CULTURE, BACTERIAL PATIENT: TAN LASSITER LOCATION: [facility]#: [id number] : 46 AGE: SEX: M ORDERED BY: NALDO CASTILLO SOURCE: Blood COLLECTED: 10/22/22 06:37 ANTIBIOTICS AT [facility].: RECEIVED : 10/22/22 13:58 SITE: PERIPHERAL R E S U L T S BLOOD CULTURE, BACTERIAL FINAL 10/26/22 15:42 No Growth at 1 days No Growth at 2 days No Growth at 3 days NO GROWTH at 4 days - FINAL REPORT Normal [facility] Comment on above: Performed By: #### B LDC ####[id number] [place] [address] BLOOD CULTURE, BACTERIAL PATIENT: TAN LASSITER LOCATION: [facility]#: [id number] : 46 AGE: SEX: M ORDERED BY: NALDO CASTILLO SOURCE: Blood COLLECTED: 10/22/22 06:37 ANTIBIOTICS AT [facility].: RECEIVED : 10/22/22 13:58 SITE: PERIPHERAL R E S U L T S BLOOD CULTURE, BACTERIAL FINAL 10/26/22 15:42 No Growth at 1 days No Growth at 2 days No Growth at 3 days NO GROWTH at 4 days - FINAL REPORT Normal [facility] Comment on above: Performed By: #### B LDC ####[id number] [place] [address] BNPon 10-22-2022 Natriuretic peptide B (Bld) [Mass/Vol] 639 pg/mL High 0 - 99 [facility] Comment on above: Result Comment: . <1 00 pg/mL - Heart failure unlikely 100-299 pg/mL - Intermediate probability of acute heart . failure exacerbation. Correlate with clinical . context and patient history. >=300 pg/mL - Heart Failure likely. Correlate with clinical . context and patient history. BNP testing is performed using different testing methodology at [facility] than at other [facility]. Direct result comparisons should only be made within the same method. Performed By: #### B NP2 ####[facility] [place], [place] [id number] CBCon 10-22-2022 Erythrocyte distribution width (RBC) [Ratio] 12.4 % Normal 11.5 - 14.5 [facility] Comment on above: Performed By: #### C BC ####[facility] [place], [place] [id number] Hematocrit (Bld) [Volume fraction] 38.7 % Low 41.0 - 52.0 [facility] Comment on above: Performed By: #### C BC ####[facility] [place], [place] [id number] Hemoglobin (Bld) [Mass/Vol] 13.3 g/dL Low 13.5 - 17.5 [facility] Comment on above: Performed By: #### C BC ####[facility] [place], [place] [id number] MCHC (RBC) [Mass/Vol] 34.4 g/dL Normal 32.0 - 36.0 [facility] Comment on above: Performed By: #### C BC ####[facility] [place], [place] [id number] MCV (RBC) [Entitic vol] 91 fL Normal 80 - 100 [facility] Comment on above: Performed By: #### C BC ####[address] [place], [place] [id number] Platelets (Bld) [#/Vol] 263 10*3/uL Normal 150 - 450 [facility] Comment on above: Performed By: #### C BC ####[facility] [place], [place] [id number] RBC 4.23 x10E12/L Low 4.50 - 5.90 [facility] Comment on above: Performed By: #### C BC ####[address] [id number] WBC (Bld) [#/Vol] 15.3 10*3/uL High 4.4 - 11.3 [facility] Comment on above: Performed By: #### C BC ####[facility] [place] [id number] COMPREHENSIVE PANELon 2022 Albumin [Mass/Vol] 3.5 g/dL Normal 3.4 - 5.0 [facility] Comment on above: Performed By: #### C MP ####[facility] [place], [place] [id number] ALP [Catalytic activity/Vol] 58 U/L Normal 33 - 136 [facility] Comment on above: Performed By: #### C MP ####[address] [id number] ALT [Catalytic activity/Vol] 89 U/L High 10 - 52 [facility] Comment on above: Result Comment: Sarah ents treated with Sulfasalazine may generate falsely decreased results for ALT. Performed By: #### C MP ####[address] [id number] Anion gap [Moles/Vol] 10 mmol/L Normal 10 - 20 [facility] Comment on above: Performed By: #### C MP ####[address] [id number] AST [Catalytic activity/Vol] 86 U/L High 9 - 39 [facility] Comment on above: Performed By: #### C MP ####[address] [id number] Bilirubin [Mass/Vol] 0.4 mg/dL Normal 0.0 - 1.2 [facility] Comment on above: Performed By: #### C MP ####[address] [id number] Calcium [Mass/Vol] 8.6 mg/dL Normal 8.6 - 10.3 [facility] Comment on above: Performed By: #### C MP ####[address] [id number] Chloride [Moles/Vol] 108 mmol/L High 98 - 107 [facility] Comment on above: Performed By: #### C MP ####[address] [id number] Creatinine [Mass/Vol] 0.95 mg/dL Normal 0.50 - 1.30 [facility] Comment on above: Performed By: #### C MP ####[address] [id number] GFR/1.73 sq M.predicted among non-blacks MDRD (S/P/Bld) [Vol rate/Area] 84 mL/min/{1.73_m2} Normal >90 [facility] Comment on above: Result Comment: CALC ULATIONS OF ESTIMATED GFR ARE PERFORMED USING THE 2020 CKD-EPI STUDY REFIT EQUATION WITHOUT THE RACE VARIABLE FOR THE IDMS-TRACEABLE CREATININE METHODS. https://jasn.asnjournals.org/content//ASN.4203133 988 Performed By: #### C MP ####[address] [id number] Glucose [Mass/Vol] 144 mg/dL High 74 - 99 [facility] Comment on above: Performed By: #### C MP ####[address] [id number] HCO3 (Bld) [Moles/Vol] 24 mmol/L Normal 21 - 32 [facility] Comment on above: Performed By: #### C MP ####[address] [id number] Potassium [Moles/Vol] 4.2 mmol/L Normal 3.5 - 5.3 [facility] Comment on above: Performed By: #### C MP ####[address] [id number] Protein [Mass/Vol] 6.5 g/dL Normal 6.4 - 8.2 [facility] Comment on above: Performed By: #### C MP ####[address] [id number] Sodium [Moles/Vol] 138 mmol/L Normal 136 - 145 [facility] Comment on above: Performed By: #### C MP ####[address] [id number] Urea nitrogen [Mass/Vol] 22 mg/dL Normal 6 - 23 [facility] Comment on above: Performed By: #### C MP ####[address] [place] [id number] Clinical Event Noteon 2022 Clinical Event Note [...] Updated: 22-Oct-2022 15:53 by Ricardo Myers) Normal [facility] Clinical Event Note-Attempte d exam - [...] 22-Oct-2022 12:43 by Janine Haq (MARCIE) Normal [facility] Consult-Cardiologyon 023 Consult-Cardiology Service: Service: Cardiology Consult: Consult requested by (Attending Name): Naldo Castillo Reason: NSTEMI History of Present Illness: HPI: TAN LASSITER is a 71 year old Male who is hearing impaired was transferred from [facility] to [facility] on 10/22/2022 after presenting to [facility] emergency department with chief complaint of chest pain. Patient has history of deafness/hearing impairment and history of remote cochlear implant, he reads lips for communication. No family is present at time of cardiology consult. Information for consult obtained from speaking to patient and from review of paperwork sent from [facility] ED. 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 Yesterday he was getting ready to go to religious for a Bible study and had sudden [...] Portable chest x-ray showed clear lungs. In [place] emergency room patient was given Tylenol, aspirin, IV Cardizem, subcutaneous Lovenox, IV steroids, morphine, Zofran, IV fluids, and nebulizer. He converted to sinus rhythm. He was transferred to [facility] for further evaluation. This morning at [...] cancer, denies having any current cardiology care. [facility] heart cardiology consult was placed for [...] at times, former tobacco use listed as [id number] history patient states that he quit smoking [...] Exertion; NEGATIVE: (more content not included)... Normal [facility] Cult, Bloodon 10-22-2022 Bacteria identified Cx Nom (Bld) -[facility] Work Phone: Discharge Planning Leki3uj 0 10-22-2022 Discharge Planning Note2 Discharge Planning: [facility] Anticipated Discharge [id number] Discharge Planning 10/22/22 TCC NOTE: pt admitted from [facility] as NSTEMI and transferred to [facility]. Cardiology consulted. Rounded with nurse caring for patient , Pt underwent cardiac catheterization today. NO intervention , medical management recommended. I met with patient at bedside, introduced self and role to discuss dc planning needs and concerns. Pt resides at home alone, he is independent , uses no assistive devices. denies any DME needs. Pt is very [place] , states he reads lips only. Pt denies any needs at discharge. states family will transport him home at time of discharge. nursing am-pac . Assessment: Discharge Planning Assessment [id number] Discharge Planning Assessment Completed byKaylee Lewis RN TCC Primary Contact Name and Numberaunt Nataliia Mayorga [phone] Lives Withalone(1) Living Arrangementspt reports he lives alone in a 2 story home, 3 steps to enter with rails, bed and bath on 1st floor, has tub/shower.(2) Stated Reason for AdmissionPatient stated he woke up today in a cold sweat and chest was hurting, SOB started feeling tired, and was shaking (1) [place] PCPDaemilie Ledesma [facility] [place] Resource/Environmental Concernsnone(1) [place] Services Anticipated at Transitionnon(1) Readmission Within the Last 30 Daysno previous admission in last 30 days Insuranceunited hc mycare Anticipated Changes Related to Illnessnone Equipment Needed After Dischargenone Anticipated Discharge Facility/Level of Care Needs.Home Medication Adherence/Afford/Obtainyes Electronic Signatures: Kaylee Lewis (TRAFFIC SIGNAL TECHNICIAN) (Signed 22-Oct-2022 16:46) Authored: Discharge Planning, Assessment Last Updated: 22-Oct-2022 16:46 by Kaylee Lewis (TRAFFIC SIGNAL TECHNICIAN) References: 1. Data Referenced From Patient Profile - Adult v2 22-Oct-2022 04:41 2. Data Referenced From OT Evaluation v2-occupational therapy 22-Oct-2022 13:06 Normal [facility] Echocardiogramon 10-22-2022 [address] [place] [address] TRANSTHORACIC ECHOCARDIOGRAM REPORT Patient Name: TAN Montes De Oca Physician: [id number] Vladislav Saldaña DO Study Date: 10/22/2022 Referring NALDO HOLDER Physician: AMERICA/PID: [id number] PCP: Accession/Order#: [id number] [facility] Echo Location: Lab Date of : 1950 Fellow: Gender: M Nurse: Judah Morataya RN Admit Date: 10/22/2022 Claim Rep: Christine Riddle [facility] Admission Status: Inpatient - Additional Staff: Routine Height: 180.00 cm CC Report to: [facility] Moreno Weight: 74.01 kg Study Type: Echocardiogram BSA: 1.93 m2 Blood Pressure: 101 /58 mmHg Diagnosis/ICD: R07.89-Other chest pain Indication: Chest Pain Procedure/CPT: Echo Complete w Full [id number] Patient History: Pertinent History: Dyspnea, Chest Pain, [...] LA Area A2C: 12.4 cm2 LA Major O'Brien A4C: 4.5 cm LA Major O'Brien A2C: 4.6 cm LA Volume Index: 15.0 ml/m2 RA VOLUME BY A/L METHOD: Normal Ranges: RA Vol A4C: 42.9 ml (8.3-19.5ml) RA Vol Index A4C: 22.2 ml/m2 RA Area A4C: 15.4 cm2 RA Major O'Brien A4C: 4.7 cm M-MODE MEASUREMENTS: Normal Ranges: [...] LVOT Diameter: (more content not included)... Normal [facility] Electrocardiogram 12 Leadon 10-22-2022 Electrocardiogram 12 Lead Ventricular Rate 65 Atrial Rate 65 P-R Interval 164 QRS Duration 78 Q-T Interval 504 QTC Calculation(Bazett) 524 P O'Brien 72 R O'Brien 71 T O'Brien 72 QRS Count 11 Q Onset 222 P Onset 140 P Offset 193 T Offset 474 QTC Fredericia 517 Diagnosis Class Abnormal Diagnosis Normal sinus rhythm Prolonged QT Abnormal ECG No previous ECGs available Confirmed by Vladislav Perez ([id number]) on 10/26/2022 5:26:20 PM Normal [facility] HEMOGLOBIN A1Con 10-22-2022 Glucose [Mass/Vol] 100 mg/dL Normal [facility] Comment on above: Performed By: #### H BA1E ####[id number] [place] [address] HbA1c (Bld) [Mass fraction] 5.1 % Normal [facility] Comment on above: Result Comment: Diag nosis of Diabetes-Adults Non-Diabetic: < or = 5.6% Increased risk for developing diabetes: 5.7-6.4% Diagnostic of diabetes: > or = 6.5% . Monitoring of Diabetes Age (y) Therapeutic Goal (%) Adults: >18 <7.0 Pediatrics: 13-18 <7.5 7-12 <8.0 0- 6 7.5-8.5 [employer] [place]. Diabetes Care 33(S1), Oct 2009. Performed By: #### H BA1E ####[id number] [place] [address] Hemoglobin A1Con 10-22-2022 Glucose [Mass/Vol] 100 mg/dL [facility] Work Phone: HbA1c (Bld) [Mass fraction] 5.1 % [facility] Work Phone: Comment on above: Diagnosis of Diabete s-Adults Non-Diabetic: < or = 5.6% Increased risk for developing diabetes: 5.7-6.4% Diagnostic of diabetes: > or = 6.5%. Monitoring of Diabetes Age (y) Therapeutic Goal (%) Adults: >18 <7.0 Pediatrics: 13-18 <7.5 7-12 <8.0 0- 6 7.5-8.5 [place]. Diabetes Care 33(S1), Oct 2009. LACTATE/LACTIC ACIDon 2022 Lactate [Moles/Vol] 1.0 mmol/L Normal 0.4-1.9 [facility] Comment on above: Performed By: #### L ACT #### [facility] [address] [address] [address] Wyatt Leger LIPID PANEL (CORONARY RISK 2 )on 10-22-2022 Cholesterol [Mass/Vol] 134 mg/dL Normal 0 - 199 [facility] Comment on above: Result Comment: . [...] Metamizole dosing. Performed By: #### L IPID ####[address] [place], [place] [id number] Cholesterol in HDL [Mass/Vol] 39.2 mg/dL Abnormal [facility] Comment on above: Result Comment: . AGE VERY LOW LOW NORMAL HIGH 0-19 Y < 35 < 40 40-45 ---- 20-24 Y ---- < 40 >45 ---- >24 Y ---- < 40 40-60 >60 . Performed By: #### L IPID ####[address] [place], [place] [id number] Cholesterol in LDL [Mass/Vol] 87 mg/dL Normal 0 - 99 [facility] Comment on above: Result Comment: . NEAR BORD AGE DESIRABLE OPTIMAL HIGH HIGH VERY HIGH 0-19 Y 0 - 109 --- 110-129 >/= 130 ---- 20-24 Y 0 - 119 --- 120-159 >/= 160 ---- >24 Y 0 - 99 100-129 130-159 160-189 >/=190 . Performed By: #### L IPID ####[address] [id number] Cholesterol in VLDL [Mass/Vol] 8 mg/dL Normal 0 - 40 [facility] Comment on above: Performed By: #### L IPID ####[address] [place], [place] [id number] Cholesterol.total/Ch olesterol in HDL [Mass ratio] 3.4 {ratio} Normal [facility] Comment on above: Result Comment: REF VALUES DESIRABLE < 3.4 HIGH RISK > 5.0 Performed By: #### L IPID ####[address] [id number] Triglyceride [Mass/Vol] 41 mg/dL Normal 0 - 149 [facility] Comment on above: Result Comment: . [...] Metamizole dosing. Performed By: #### L IPID ####[facility] [place], [place] [id number] Laboratory - Chemistry and C hemistry - challengeon 10-22-2022 Albumin BCP dye [Mass/Vol] 3.5 g/dL 3.4 - 5.0 [facility] Work Phone: [phone] [Catalytic activity/Vol] 58 U/L 33 - 136 [facility] Work Phone: [phone] ALT With P-5'-P [Catalytic activity/Vol] 89 U/L above high threshold 10 - 52 [facility] Work Phone: [phone] Comment on above: Patients treated wit h Sulfasalazine may generate falsely decreased results for ALT. Anion gap [Moles/Vol] 10 mmol/L 10 - 20 [facility] Work Phone: [phone] AST With P-5'-P [Catalytic activity/Vol] 86 U/L above high threshold 9 - 39 [facility] Work Phone: [phone] Bilirubin [Mass/Vol] 0.4 mg/dL 0.0 - 1.2 [facility] Work Phone: [phone] Calcium [Mass/Vol] 8.6 mg/dL 8.6 - 10.3 [facility] Work Phone: [phone] Chloride [Moles/Vol] 108 mmol/L above high threshold 98 - 107 [facility] Work Phone: [phone] CO2 [Moles/Vol] 24 mmol/L 21 - 32 [facility] Work Phone: [phone] Creatinine [Mass/Vol] 0.95 mg/dL See Below [facility] Work Phone: [phone] Comment on above: Reference Range: 0.5 0 - 1.30 Glucose [Mass/Vol] 144 mg/dL above high threshold 74 - 99 [facility] Work Phone: [phone] Natriuretic peptide B (Bld) [Mass/Vol] 639 pg/mL above high threshold 0 - 99 [facility] Work Phone: [phone] Comment on above: . <100 pg/mL - Heart failure [id number] pg/mL - Intermediate probability of acute heart. failure exacerbation. Correlate with clinical. context and patient history. >=300 pg/mL - Heart Failure likely. Correlate with clinical. context and patient history.BNP testing is performed using different testing methodology at [facility] than at other [facility]. Direct result comparisons should only be made within the same method. Potassium [Moles/Vol] 4.2 mmol/L 3.5 - 5.3 [facility] Work Phone: [phone] Protein [Mass/Vol] 6.5 g/dL 6.4 - 8.2 [facility] Work Phone: [phone] Sodium [Moles/Vol] 138 mmol/L 136 - 145 [facility] Work Phone: [phone] Urea nitrogen [Mass/Vol] 22 mg/dL 6 - 23 [facility] Work Phone: [phone] Laboratory - Hematology and Cell countson 10-22-2022 Erythrocyte distribution width (RBC) [Ratio] 12.4 % See Below [facility] Work Phone: [phone] Comment on above: Reference Range: 11. 5 - 14.5 Hematocrit (Bld) [Volume fraction] 38.7 % below low threshold See Below [facility] Work Phone: Comment on above: Reference Range: 41. 0 - 52.0 Hemoglobin (Bld) [Mass/Vol] 13.3 g/dL below low threshold See Below [facility] Work Phone: Comment on above: Reference Range: 13. 5 - 17.5 MCHC (RBC) [Mass/Vol] 34.4 g/dL See Below [facility] Work Phone: Comment on above: Reference Range: 32. 0 - 36.0 MCV (RBC) [Entitic vol] 91 fL 80 - 100 [facility] Work Phone: [phone] Platelets (Bld) [#/Vol] 263 10*3/uL 150 - 450 [facility] Work Phone: RBC (Bld) [#/Vol] 4.23 {x10E12/L} below low threshold See Below [facility] Work Phone: Comment on above: Reference Range: 4.5 0 - 5.90 WBC (Bld) [#/Vol] 15.3 10*3/uL above high threshold 4.4 - 11.3 [facility] Work Phone: Left Heart Catheterizationon 10-22-2022 Left Heart Catheterization [facility] [address] [place] [address] Cardiovascular Catheterization Report Patient Name: TAN LASSITER Performing [address] Arya Pineda Physician: Study Date: 10/22/2022 Verifying Physician: [id number] Pineda MD MRN/PID: [id number] Solutions Specialist: Accession/Order#: [id number] Referring Physician: JAYLIN GERARD Date of : [...] a modified Seldinger technique. Subsequently a 5 German sheath was placed in the right femoral [...] + 10/22/2022 11:26:35 AM {Sheath} - 5F [place] Sheath w/ Wire - Qty: 1 Part [...] pad - Qty: 1 Each Part #: [id number] + +------ + 10/22/2022 11:39:59 AM {Closure Device} - 5F Vascade Closure Device - Qty: 1 Each Part #: [id number] + +------ + + + Contrast: + + Omnipaque: (more content not included)... Normal [facility] Lipid Panelon 10-22-2022 Cholesterol [Mass/Vol] 134 mg/dL 0 - 199 -[facility] Work Phone: Comment on above: . AGE [...] Cholesterol in HDL [Mass/Vol] 39.2 mg/dL Abnormal [facility] [employer] Work Phone: Comment on above: . AGE VERY LOW LOW N ORMAL HIGH 0-19 Y < 35 < 40 40-45 ---- 20- 24 Y ---- < 40 >45 ---- >24 Y ---- < 40 40-60 >60. Cholesterol in LDL [Mass/Vol] 87 mg/dL 0 - [address] [facility] [employer] [place] Work Phone: Comment on above: . NEAR BORD AGE JERED RABLE OPTIMAL HIGH HIGH VERY HIGH 0-19 Y 0 - 109 --- 110-129 >/= 130 ---- 20-24 Y 0 - 119 --- 120-159 >/= 160 ---- >24 Y 0 - 99 100-129 130-159 160-189 >/=190. Cholesterol.total/Ch olesterol in HDL [Mass ratio] 3.4 {ratio} [facility] [employer] [place] Work Phone: Comment on above: REF VALUESDESIRABLE < 3.4HIGH RISK > 5.0 Triglyceride [Mass/Vol] 41 mg/dL 0 - 149 [facility] [place] Work Phone: Comment on above: . [...] Lipid Panel 8 mg/dL 0 - 40 [facility] Work Phone: MAGNESIUMon 10-22-2022 Magnesium [Mass/Vol] 2.13 mg/dL Normal 1.60 - 2.40 [facility] Comment on above: Performed By: #### M G ####[facility] [place], [place] [id number] Magnesium, Serumon Magnesium [Mass/Vol] 2.13 mg/dL See Below [facility] Work Phone: Comment on above: Reference Range: 1.6 0 - 2.40 No Panel Informationon 10-22 [facility] Work Phone: 84 {mL/min/1.73m2} >90 [facility] Work Phone: [phone] Comment on above: CALCULATIONS OF SILVIANO MATED GFR ARE PERFORMED USING THE 2020 CKD-EPI STUDY REFIT EQUATION WITHOUT THE RACE VARIABLE FOR THE IDMS-TRACEABLE CREATININE METHODS.https://jasn.asnjournals.org/content/early/ASN .2202015385 https://MUSEXPRDWE B01:8080 /musescripts/museweb.dll?Ret rieveTestByDateTime?PatientI R=[id number]&Date=02-15-2023& Time=05%3a27%3a58%3a00&TestT ype=ECG&Site=11&OutputType=P DF&Ext=PDF [facility] [address] DO Work Phone: [phone] Normal sinus rhythm [facility] [address] DO Work Phone: [phone] [facility] DO Work Phone: [phone] [facility] [facility] DO Work Phone: [phone] [facility] DO Work Phone: [phone] [facility] DO Work Phone: [phone] [facility] DO Work Phone: [phone] [facility] DO Work Phone: [phone] [facility] DO Work Phone: [phone] [facility] DO Work Phone: [phone] [facility] DO Work Phone: [phone] [facility] DO Work Phone: [phone] [facility] DO Work Phone: [phone] [facility] DO Work Phone: [phone] [facility] DO Work Phone: [phone] [facility] DO Work Phone: OT Evaluation v2-occupationa l therapyon 10-22-2022 OT Evaluation v2-occupational therapy Rehab: Info: Mode of Treatmentoccupational therapy Time IN09:51 Time OUT10:01 Total Treatment [id number] Patient in ... 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 Pertinent History of Current Functional Problempt is a 71 yo male transferred to [facility] from [facility] for cardiac evaluation . pt with [...] - Previous Level of Functionindependent; has dog [employer] and reports lifting 50# bags of food [...] Assessment/Interventionssupi ne to sit; sit to supine Wawzal-ib-Upx Vigo (Bed Mobility)modified independence Ezr-dl-Mnakbt Vigo (Bed Mobility)modified independence Transfer Assessment/Interventionssit to stand transfer; stand to sit transfer; toilet transfer Comment, TransfersMod Independent without AD ADL: BADL Assessment/Interventionbathi ng; upper body dressing; lower body dressing; clothing fastener management; grooming; toileting Vigo Level (Bathing)modified independence Vigo Level (Upper Body Dressing)independent [place] Level (Lower Body Dressing)modified independence [place] Level (Clothes Fastener Management)modified independence [place] Level (Grooming)modified independence [place]igo Level (Toileting)modified independence Impairments, BADL Safety/Performanceincreased time with generalized weakness; reports poor night sleep with transfer to hospital Motor: Sitting, Static (Balance)normal balance Sitting, Dynamic (Balance)normal balance Muy-ag-Vhjja (Balance)normal balance Standing, Static (Balance)normal balance Standing, [...] 22-Oct-2022 13:18 by Vicky Tony (OT) Normal [facility] Order Reconciliationon 10-22 Order Reconciliation Page [...] Injectable DOSE = 0.5 mL IntraVenous Push OnceCa.[id number] mL/Kg/DOSE x 74.8 Kg = 0.5 mL/Dose [...] Every 8 Hours and as Needed Normal [facility] PHOSPHORUSon 10-22-2022 Phosphate [Mass/Vol] 3.6 mg/dL Normal 2.5 - 4.9 [facility] Comment on above: Result Comment: The performance characteristics of phosphorus testing in heparinized plasma have been validated by the individual laboratory site where testing is performed. Testing on heparinized plasma is not approved by the FDA; however, such approval is not necessary. Performed By: #### P HOS ####[facility] [place], [place] [id number] PT Evaluation v2-physical th erapyon 10-22-2022 PT Evaluation v2-physical therapy Rehab: Info: Mode of Treatmentphysical therapy Time IN09:51 Time OUT10:01 Total Treatment Minutes0 Patient in ... at end of sessionpt in bed on alarm with head of bed elevated Patient Effortgood Symptoms Noted During/After Treatmentnone Patient Profile Reviewedyes Onset of Illness/Injury or Date of [id number] Reason for Referralimpaired mobility Referring PhysicianOT/PT 10/22 [...] is a 71 yo male transferred to [facility] from [facility] for cardiac evaluation . pt with [...] Static (Balance)normal balance Sitting, Dynamic (Balance)normal balance Nqr-gr-Jurou (Balance)normal balance Standing, Static (Balance)normal balance Standing, [...] Updated: 22-Oct-2022 12:17 by Diallo Martines (PT) [facility] Patient Profile - Adult v2on 10-22-2022 Patient Profile - Adult v2 Profile: Initial Info: How to be AddressedJohn Spoken Language PreferredEnglish Source of Informationpatient Stated Reason for AdmissionPatient stated he woke up today in a cold sweat and chest was hurting, SOB started feeling tired, and was shaking Wants Family/Rep Notified of Admissionno Notify PCPnotify PCP Informed of [place] [facility] with patient Medications Brought to Hospitalno General Health: Weight in kg74.8 kilogram(s) Weight in bvx268.9 pound(s) Weight Methodactual (measured) Scale Typebed Height in cm180.1 centimeter(s) Height in feet5 feet Height in setgod00.94 inch(es) Height Methodstated BMI (kg/m2)23.06 square meter [...] 22-Oct-2022 04:50 by Lisa Sue (JENNA) Normal [facility] Phosphorus, Serumon 10-22-19 23 Phosphate [Mass/Vol] 3.6 mg/dL 2.5 - 4.9 [facility] Work Phone: Comment on above: The performance manjeet acteristics of phosphorus testing in heparinized plasma have been validated by the individual laboratory site where testing is performed. Testing on heparinized plasma is not approved by the FDA; however, such approval is not necessary. Radiologyon 10-22-2022 XR Chest Single view Normal [facility] Work Phone: T4 - Free Thyroxine, Serumon 10-22-2022 Free T4 [Mass/Vol] 0.89 ng/dL See Below MP-[facility] th [facility] Work Phone: Comment on above: Reference Range: 0.6 1 - 1.12 Thyroxine Free testing is performed using different testing methodology at [facility] than at other [facility]. Direct result comparisons should only be made [...] THYROXINE,FREE 0.89 ng/dL Normal 0.61 - 1.12 [facility] Comment on above: Result Comment: Thyr oxine Free testing is performed using different testing methodology at [facility] than at other [facility]. Direct result comparisons should only be made [...] blood draw. Performed By: #### T 4F ####[facility] [place], [place] [id number] TROPONIN I, HIGH SENSITIVITY on 10-22-2022 TROPONIN I, HIGH SENSITIVITY 605 ng/L High 0 - 20 [facility] Comment on above: Result Comment: . [...] performed using a different testing methodology at [facility] than at other [facility]. Direct result comparisons should only be made within the same method. This is a critical result. Per Laboratory policy, critical results for this test only qualify to the call list once per 24 hours. Performed By: #### T [facility] ####[facility] [place], [place] [id number] Tropinin I.cardiac panel High sensitivity method 605 ng/L above high threshold 0 - 20 -[facility] Work Phone: Comment on above: .Less than [...] performed using a different testing methodology at [facility] than at other [facility]. Direct result comparisons should only be made within the same method.This is a critical result. Per Laboratory policy, critical results for this test only qualify to the call list once per 24 hours. TROPONIN I, HIGH SENSITIVITY 924 ng/L Critically high 0 - 20 [facility] Comment on above: Order Comment: Melody [...] performed using a different testing methodology at [facility] than at other [facility]. Direct result comparisons should only be made within the same method. Confirmed by repeat analysis Called- TALITA to Ade Mcconnell, 10/22/2022 07:10 Performed By: #### T [facility] ####[facility] [place], [place] [id number] Tropinin I.cardiac panel High sensitivity method 924 ng/L Critically high 0 - 20 [facility] Work Phone: Comment on above: .Less than [...] performed using a different testing methodology at [facility] than at other [facility]. Direct result comparisons should only be made within the same method.Confirmed by repeat analysis Called- RB to Ade Mcconnell, 10/22/2022 07:10 TROPONIN, HIGH SENSITIVITYon 10-22-2022 HSTROP 1342.0 pg/mL Critically high 4.0-76.1 [facility] Comment on above: Result Comment: CUT- OFF POINTS HAVE BEEN ESTABLISHED BASED ON THE FOURTH UNIVERSAL DEFINITIONS OF MYOCARDIAL INFARCTION. THE UPPER REFERENCE LIMIT (URL) OF TROPONIN, DEFINED THE 99TH PERCENTILE OF cTnI DISTRIBUTION IN A REFERENCE POPULATION, HAS BEEN CONFIRMED THE DECISION THRESHOLD FOR TN DIAGNOSIS. Performed By: #### H STROPN #### [facility] [address] [address] [address] Wyatt Leger HSTROP 990.4 pg/mL Critically high 4.0-76.1 [facility] Comment on above: Result Comment: CUT- OFF POINTS HAVE BEEN ESTABLISHED BASED ON THE FOURTH UNIVERSAL DEFINITIONS OF MYOCARDIAL INFARCTION. THE UPPER REFERENCE LIMIT (URL) OF TROPONIN, DEFINED THE 99TH PERCENTILE OF cTnI DISTRIBUTION IN A REFERENCE POPULATION, HAS BEEN CONFIRMED THE DECISION THRESHOLD FOR TN DIAGNOSIS. Performed By: #### H STROPN #### [facility] [address] [address] [address] Wyatt Leger TSHon 10-22-2022 TSH Qn 0.36 m[IU]/L Low 0.44 - 3.98 [facility] Comment on above: Result Comment: TSH testing is performed using different testing methodology at [facility] than at other [facility]. Direct result comparisons should only be made within the same method. Performed By: #### T SH2 ####[address] [id number] TSH - Thyroid Stimulating Ho r[place], Serumon 10-22-2022 TSH Qn 0.36 m[IU]/L below low threshold See Below [facility] Work Phone: Comment on above: Reference Range: 0.4 4 - 3.98 TSH testing is performed using different testing methodology at [facility] than at other [facility]. Direct result comparisons should only be made within the same method. URINALYSISon 10-22-2022 Appearance (U) CLEAR Normal CLEAR [facility] Comment on above: Performed By: #### U A ####[address] [id number] Bilirubin Ql (U) Negative Normal NEGATIVE [facility] Comment on above: Performed By: #### U A ####[address] [id number] Color (U) YELLOW Normal STRAW,YELL OW [facility] Comment on above: Performed By: #### U A ####[address] [id number] Glucose Ql (U) Negative Normal NEGATIVE [facility] Comment on above: Performed By: #### U A ####[address] [id number] Hemoglobin Ql (U) Negative Normal NEGATIVE [facility] Comment on above: Performed By: #### U A ####[address] [phone] Ketones Ql (U) Negative Normal NEGATIVE [facility] Comment on above: Performed By: #### U A ####[address] [phone] Leukocyte esterase Test strip Ql (U) Negative Normal NEGATIVE [facility] Comment on above: Performed By: #### U A ####[facility] [place], [place] [id number] Nitrite Ql (U) Negative Normal NEGATIVE [facility] Comment on above: Performed By: #### U A ####[facility] [place], [place] [id number] pH (U) 6.0 [pH] Normal 5.0 - 8.0 [facility] Comment on above: Performed By: #### U A ####[facility] [place], [place] [id number] Protein Ql (U) Negative Normal NEGATIVE [facility] Comment on above: Performed By: #### U A ####[facility] [place], [place] [id number] Specific gravity (U) [Rel density] 1.015 Normal 1.005 - 1.035 [facility] Comment on above: Performed By: #### U A ####[facility] [place], [place] [id number] Urobilinogen (U) [Mass/Vol] mg/dL Normal 0.0 - 1.9 [facility] Comment on above: Performed By: #### U A ####[facility] [place] [id number] Urinalysison 10-22-2022 Color (U) YELLOW See Below [facility] Work Phone: [phone] Comment on above: Reference Range: STR AW,YELLOW Glucose Ql (U) Negative NEGATIVE [facility] Work Phone: [phone] Ketones Ql (U) Negative NEGATIVE [facility] Work Phone: [phone] Leukocyte esterase Test strip Ql (U) Negative NEGATIVE [facility] Work Phone: [phone] pH (U) 6.0 [pH] 5.0 - 8.0 [facility] Work Phone: [phone] Protein (U) [Mass/Vol] Negative NEGATIVE [facility] Work Phone: [phone] RBC (U) [#/Vol] Negative NEGATIVE [facility] Work Phone: [phone] Specific gravity (U) [Rel density] 1.015 1 See Below [facility] Work Phone: [phone] Comment on above: Reference Range: 1.0 05 - 1.[address] [facility] Work Phone: [phone] Urinalysis <2.0 0.0 - 1.9 [facility] Work Phone: [phone] Urinalysis CLEAR CLEAR [facility] Work Phone: [phone] BNPon 10-21-2022 Natriuretic peptide B (Bld) [Mass/Vol] 372.0 pg/mL Normal <=900.0 [facility] Comment on above: Performed By: #### H STROPN, BNP, CMP #### [facility] [address] [place] [address] Dr. Wyatt Leger CBC W MANUAL DIFFon 10-21-19 23 ATYPICAL LYMPH # Normal [facility] Comment on above: Performed By: #### C BESSIE #### [facility] [address] [place] [address] Dr. Wyatt Leger ATYPICAL LYMPH % Normal [facility] Comment on above: Performed By: #### C BCMAN #### [facility] [address] [place] [address] Dr. Wyatt Leger BAND # Normal 0.0-0.3 [facility] Comment on above: Performed By: #### C BESSIE #### [facility] [address] [place] [address] Dr. Wyatt Leger BAND % Normal 0-5 [facility] Comment on above: Performed By: #### C BESSIE #### [facility] [address] [place] [address] Dr. Wyatt Leger BASOM # 0.00 103/ul Normal 0.00-0.10 [facility] Comment on above: Performed By: #### C BESSIE #### [facility] [address] [place] [address] Dr. Wyatt Leger BASOM % 0.0 % Critically low 0.2-2.0 [facility] Comment on above: Performed By: #### C BESSIE #### [facility] [address] [place] [address] Dr. Wyatt Leger BLAST # Normal [facility] Comment on above: Performed By: #### C BESSIE #### [facility] [address] [place] [address] Dr. Wyatt Leger BLAST % Normal [facility] Comment on above: Performed By: #### C BESSIE #### [facility] [address] [place] [address] Dr. Wyatt Leger CORRECTED WBC Normal 4.0-11.0 [facility] Comment on above: Performed By: #### C BESSIE #### [facility] [address] [place] [address] Dr. Wyatt Leger EOS # 0.05 103/ul Normal 0.00-0.70 [facility] Comment on above: Performed By: #### C BESSIE #### [facility] [address] [place] [address] Dr. Wyatt Leger EOS% 1.0 % Normal 0.9-7.0 [facility] Comment on above: Performed By: #### C BESSIE #### [facility] [address] [place] [address] Dr. Wyatt Leger HCT 43.2 % Normal 42.0-54.0 [facility] Comment on above: Performed By: #### C BESSIE #### [facility] [address] [place] [address] Dr. Wyatt Leger HGB 14.7 g/dl Normal 14.0-18.0 [facility] Comment on above: Performed By: #### C BESSIE #### [facility] [address] [place] [address] Dr. Wyatt Leger LYMPHM # 0.97 103/ul Critically low 1.20-3.80 [facility] Comment on above: Performed By: #### C BESSIE #### [facility] [address] [place] [address] Dr. Wyatt Leger LYMPHM% 21.0 % Normal 20.5-60.0 [facility] Comment on above: Performed By: #### C BESSIE #### [facility] [address] [place] [address] Dr. Wyatt Leger MCH 31.2 pg Normal 25.9-34.0 [facility] Comment on above: Performed By: #### C BESSIE #### [facility] [address] [place] [address] Dr. Wyatt Leger MCHC 34.0 g/dl Normal 29.9-35.2 [facility] Comment on above: Performed By: #### C BESSIE #### [facility] [address] [place] [address] Dr. Wyatt Leger MCV 91.7 fL Normal 80.0-94.0 [facility] Comment on above: Performed By: #### C BESSIE #### [facility] [address] [place] [address] Dr. Wyatt Leger METAMYELOCYTE # Normal [facility] Comment on above: Performed By: #### C BESSIE #### [facility] [address] [place] [address] Dr. Wyatt Leger METAMYELOCYTE % Normal [facility] Comment on above: Performed By: #### C BESSIE #### [facility] [address] [place] [address] Dr. Wyatt Leger MONOM# 0.00 103/ul Critically low 0.30-0.80 [facility] Comment on above: Performed By: #### C BESSIE #### [facility] [address] [place] [address] Dr. Wyatt Leger MONOM% 0.0 % Critically low 1.7-12.0 [facility] Comment on above: Performed By: #### C BESSIE #### [facility] [address] [address] [address] Wyatt Leger MPV 9.1 fL Critically low 9.5-13.5 [facility] Comment on above: Performed By: #### C BESSIE #### [facility] [address] [address] [address] Wyatt Leger MYELOCYTE # Normal [facility] Comment on above: Performed By: #### C BESSIE #### [facility] [address] [address] [address] Wyatt Leger MYELOCYTE % Normal [facility] Comment on above: Performed By: #### C BESSIE #### [facility] [address] [place] [address] Dr. Wyatt Leger NRBC Normal [facility] Comment on above: Performed By: #### C BESSIE #### [facility] [address] [place] [address] Dr. Wyatt Leger PLT 272 103/ul Normal 150-450 [facility] Comment on above: Performed By: #### C BESSIE #### [facility] [address] [place] [address] Dr. Wyatt Leger RBC 4.71 106/ul Normal 4.70-6.10 [facility] Comment on above: Performed By: #### C BESSIE #### [facility] [address] [place] [address] Dr. Wyatt Leger RDW 12.2 % Normal 11.0-15.0 [facility] Comment on above: Performed By: #### C BESSIE #### [facility] [address] [place] [address] Dr. Wyatt Leger SEG # 3.59 103/ul Normal 1.40-6.50 [facility] Comment on above: Performed By: #### C BESSIE #### [facility] [address] [place] [address] Dr. Wyatt Leger SEG % 78.0 % Critically high 43.0-75.0 [facility] Comment on above: Result Comment: VACU OLES SEEN Performed By: #### C BESSIE #### [facility] [address] [address] [address] Wyatt Leger WBC 4.6 103/ul Normal 4.0-11.0 [facility] Comment on above: Performed By: #### C ASHLYNLEESA #### [facility] [address] [place] [address] Dr. Wyatt Leger CULTURE BLOODon 10-21-2022 Microscopic examination of blood, culture Culture Observations: NO GROWTH AT 5 DAYS. Normal [facility] Comment on above: Performed By: #### B LDCX2 #### [facility] [address] [address] [address] Wyatt Leger Microscopic examination of blood, culture Culture Observations: NO GROWTH AT 5 DAYS. Normal [facility] Comment on above: Performed By: #### B LDCX2 #### [facility] [address] [place] [address] Dr. Wyatt Leger [facility]19 [facility]on SARS-CoV-2 (COVID-19) RNA MIGUEL+probe Ql (Unsp spec) Not detected Normal NOT DETECTED [facility] Comment on above: Result Comment: When diagnostic [...] for this test is supported by the [place] of Health and Human Service's declaration that [...] used). Performed By: #### B LDCX2 #### [facility] [address] [place] [address] Dr. Wyatt Leger INFLUENZA A AND B AGon 10-[facility] Normal [facility] Comment on above: Result Comment: Nega tive for Flu A protein angiten. Infection due to Flu A cannot be ruled out. Flu A angiten in the sample may be below the detection limit of the test. Performed By: #### B LDCX2 #### [facility] [address] [place] [address] Dr. Wyatt Leg[facility] SEE BEL[facility] Normal [facility] Comment on above: Result Comment: Nega tive for Flu B protein antigen. Infection due to Flu B cannot be ruled out. Flu B antigen in the sample may be below the detection limit of the test. Performed By: #### B LDCX2 #### [facility] [address] [place] [address] Dr. Wyatt Leger INFLUENZA A AG Negative Normal NEGATIVE SEE COMMENT [facility] Comment on above: Performed By: #### B LDCX2 #### [facility] [address] [place] [address] Dr. Wyatt Leger INFLUENZA B AG Negative Normal NEGATIVE SEE COMMENT [facility] Comment on above: Performed By: #### B LDCX2 #### [facility] [address] [place] [address] Dr. Wyatt Leger LACTATE/LACTIC ACIDon 2022 Lactate [Moles/Vol] 2.3 mmol/L Critically high 0.4-1.9 [facility] Comment on above: Performed By: #### L ACT #### [facility] [address] [place] [address] Dr. Wyatt Leger PROF 14(COMP METB)on 023 Albumin [Mass/Vol] 3.7 g/dL Normal 3.4-5.0 [facility] Comment on above: Performed By: #### H STROPN, BNP, CMP #### [facility] [address] [place] [address] Dr. Wyatt Leger Albumin/Globulin [Mass ratio] 0.9 {ratio} Normal [facility] Comment on above: Performed By: #### H STROPN, BNP, CMP #### [facility] [address] [address] [address] Wyatt Leger ALP [Catalytic activity/Vol] 93 U/L Normal 46-116 [facility] Comment on above: Performed By: #### H STROPN, BNP, CMP #### [facility] [address] [address] [address] Wyatt Leger ALT [Catalytic activity/Vol] 31 U/L Normal 16-63 [facility] Comment on above: Performed By: #### H STROPN, BNP, CMP #### [facility] [address] [address] [address] Wyatt Leger Anion gap [Moles/Vol] 10.4 mmol/L Normal [facility] Comment on above: Performed By: #### H STROPN, BNP, CMP #### [facility] [address] [place] [address] Dr. Wyatt Leger AST [Catalytic activity/Vol] 40 U/L Critically high 15-37 [facility] Comment on above: Performed By: #### H STROPN, BNP, CMP #### [facility] [address] [place] [address] Dr. Wyatt Leger Bilirubin [Mass/Vol] 0.5 mg/dL Normal 0.2-1.0 [facility] Comment on above: Performed By: #### H STROPN, BNP, CMP #### [facility] [address] [place] [address] Dr. Waytt Leger Calcium [Mass/Vol] 8.7 mg/dL Normal 8.5-10.1 [facility] Comment on above: Performed By: #### H STROPN, BNP, CMP #### [facility] [address] [address] [address] Wyatt Leger Chloride [Moles/Vol] 102 mmol/L Normal 98-107 [facility] Comment on above: Performed By: #### H STROPN, BNP, CMP #### [facility] [address] [address] [address] Wyatt Leger CO2 [Moles/Vol] 29.6 mmol/L Normal 21.0-32.0 [facility] Comment on above: Performed By: #### H STROPN, BNP, CMP #### [facility] [address] [address] [address] Wyatt Leger Creatinine [Mass/Vol] 0.89 mg/dL Normal 0.70-1.30 [facility] Comment on above: Performed By: #### H STROPN, BNP, CMP #### [facility] [address] [address] [address] Wyatt Leger EGFR-AF NIGERIEN >60 Normal >=60 [facility] Comment on above: Performed By: #### H STROPN, BNP, CMP #### [facility] [address] [address] [address] Wyatt Leger EGFR-NON AF NIGERIEN >60 Normal >=60 [facility] Comment on above: Performed By: #### H STROPN, BNP, CMP #### [facility] [address] [address] [address] Wyatt Leger Globulin (S) [Mass/Vol] 4.0 g/dL Normal [facility] Comment on above: Performed By: #### H STROPN, BNP, CMP #### [facility] [address] [address] [address] Wyatt Leger Glucose [Mass/Vol] 102 mg/dL Normal 74-106 [facility] Comment on above: Performed By: #### H STROPN, BNP, CMP #### [facility] [address] [address] [address] Wyatt Leger Potassium [Moles/Vol] 4.0 mmol/L Normal 3.5-5.1 [facility] Comment on above: Performed By: #### H STROPN, BNP, CMP #### [facility] [address] [address] [address] Wyatt Leger Protein [Mass/Vol] 7.7 g/dL Normal 6.4-8.2 [facility] Comment on above: Performed By: #### H STROPN, BNP, CMP #### [facility] [address] [address] [address] Wyatt Leger Sodium [Moles/Vol] 138 mmol/L Normal 136-145 [facility] Comment on above: Performed By: #### H STROPN, BNP, CMP #### [facility] [address] [address] [address] Wyatt Leger Urea nitrogen [Mass/Vol] 17.0 mg/dL Normal 7.0-18.0 [facility] Comment on above: Performed By: #### H STROPN, BNP, CMP #### [facility] [address] [address] [address] Wyatt Leger Urea nitrogen/Creatinine [Mass ratio] 19.1 mg/mg Normal [facility] Comment on above: Performed By: #### H STROPN, BNP, CMP #### [facility] [address] [place] [address] Dr. Wyatt Leger TROPONIN, HIGH SENSITIVITYon 10-21-2022 HSTROP 441.2 pg/mL Critically high 4.0-76.1 [facility] Comment on above: Result Comment: CUT- OFF POINTS HAVE BEEN ESTABLISHED BASED ON THE FOURTH UNIVERSAL DEFINITIONS OF MYOCARDIAL INFARCTION. THE UPPER REFERENCE LIMIT (URL) OF TROPONIN, DEFINED THE 99TH PERCENTILE OF cTnI DISTRIBUTION IN A REFERENCE POPULATION, HAS BEEN CONFIRMED THE DECISION THRESHOLD FOR [place] DIAGNOSIS. Performed By: #### H STROPN #### [facility] [address] [place] [address] Dr. Wyatt Leger HSTROP 14.6 pg/mL Normal 4.0-76.1 [facility] Comment on above: Result Comment: CUT- OFF POINTS HAVE BEEN ESTABLISHED BASED ON THE FOURTH UNIVERSAL DEFINITIONS OF MYOCARDIAL INFARCTION. THE UPPER REFERENCE LIMIT (URL) OF TROPONIN, DEFINED THE 99TH PERCENTILE OF cTnI DISTRIBUTION IN A REFERENCE POPULATION, HAS BEEN CONFIRMED THE DECISION THRESHOLD FOR TN DIAGNOSIS. Performed By: #### H STROPN, BNP, CMP #### [facility] [address] [place] [address] Dr. Wyatt Leger XR CHEST 1 Von [...] lesion. Stable remote right posterior fractures OTHER: [place] obscured by the head position IMPRESSION: Clear lungs Electronically authenticated by: ARIANA ROSAS Date: 2022-10-21 19:36 Normal [facility] Complete Blood Counton 10-27 Erythrocyte distribution width (RBC) [Ratio] 12.6 % Normal 11.0-15.0 [facility] Comment on above: Performed By: #### C BC, CMP, TSH reflex FT4, LIPD #### [facility] [address], [place] [id number] Hematocrit (Bld) [Volume fraction] 43.4 % Normal 38.5-50.0 [facility] Comment on above: Performed By: #### C BC, CMP, TSH reflex FT4, LIPD #### [facility] [address], [place] [id number] Hemoglobin (Bld) [Mass/Vol] 14.5 g/dL Normal 13.0-17.1 [facility] Comment on above: Performed By: #### C BC, CMP, TSH reflex FT4, LIPD #### [facility] [address], [place] [id number] MCH (RBC) [Entitic mass] 31.3 pg Normal 27.0-33.0 [facility] Comment on above: Performed By: #### C BC, CMP, TSH reflex FT4, LIPD #### [facility] [address], [place] [id number] MCHC (RBC) [Mass/Vol] 33.4 g/dL Normal 32.0-36.0 [facility] Comment on above: Performed By: #### C BC, CMP, TSH reflex FT4, LIPD #### [facility] [address], [place] [id number] MCV (RBC) [Entitic vol] 94 fL Normal 80-100 [facility] Comment on above: Performed By: #### C BC, CMP, TSH reflex FT4, LIPD #### [facility] [address], [place] [id number] Platelet mean volume (Bld) [Entitic vol] 9.60 fL Normal 7.50-12.50 [facility] Comment on above: Performed By: #### C BC, CMP, TSH reflex FT4, LIPD #### [facility] [address], [place] [id number] Platelets (Bld) [#/Vol] 354 10*3/uL Normal 140-400 [facility] Comment on above: Performed By: #### C BC, CMP, TSH reflex FT4, LIPD #### [facility] [address], [place] [id number] RBC (Bld) [#/Vol] 4.63 10*6/uL Normal 4.20-5.80 [facility] Maintenance Analyst Comment on above: Performed By: #### C BC, CMP, TSH reflex FT4, LIPD #### [facility] [address], [place] [id number] RDW-SD 43.8 fL Normal 37.0-50.0 [facility] Comment on above: Performed By: #### C BC, CMP, TSH reflex FT4, LIPD #### [facility] [address], [place] [id number] WBC (Bld) [#/Vol] 6.4 10*3/uL Normal 3.8-11.0 [facility] Analyst Comment on above: Performed By: #### C BC, CMP, TSH reflex FT4, LIPD #### [facility] [address], [place] [id number] Comprehensive Metabolic Pane ethel 10-27-2021 Albumin [Mass/Vol] 4.3 g/dL Normal 3.6-5.1 [facility] Maintenance Analyst Comment on above: Performed By: #### C BC, CMP, TSH reflex FT4, LIPD #### [facility] [address], [place] [id number] Albumin/Globulin [Mass ratio] 1.7 {ratio} Normal 1.0-2.5 [facility] Comment on above: Performed By: #### C BC, CMP, TSH reflex FT4, LIPD #### [facility] [address], [place] [id number] ALP [Catalytic activity/Vol] 77 U/L Normal 40-129 [facility] Comment on above: Performed By: #### C BC, CMP, TSH reflex FT4, LIPD #### [facility] [address], [place] [id number] ALT [Catalytic activity/Vol] 9 U/L Normal 9-46 [facility] Comment on above: Result Comment: 09/17 Female reference range changed. Performed By: #### C BC, CMP, TSH reflex FT4, LIPD #### [facility] [address], [place] [id number] Anion gap [Moles/Vol] 18 mmol/L Normal 12-20 [facility] Comment on above: Result Comment: Effe ctive 10/23/2019 reference range changed. Performed By: #### C BC, CMP, TSH reflex FT4, LIPD #### [facility] [address], [place] [id number] AST [Catalytic activity/Vol] 12 U/L Normal 10-40 [facility] Comment on above: Performed By: #### C BC, CMP, TSH reflex FT4, LIPD #### [facility] [address], [place] [id number] Bilirubin [Mass/Vol] 0.64 mg/dL Normal 0.30-1.20 [facility] Comment on above: Performed By: #### C BC, CMP, TSH reflex FT4, LIPD #### [facility] [address], [place] [id number] BUN/CREA 16 Ratio Normal 6-22 [facility] Comment on above: Performed By: #### C BC, CMP, TSH reflex FT4, LIPD #### [facility] [address], [place] [id number] Calcium [Mass/Vol] 9.7 mg/dL Normal 8.6-10.2 [facility] Comment on above: Performed By: #### C BC, CMP, TSH reflex FT4, LIPD #### [facility] [address], [place] [id number] Chloride [Moles/Vol] 105 mmol/L Normal 98-107 [facility] Comment on above: Performed By: #### C BC, CMP, TSH reflex FT4, LIPD #### [facility] [address], [place] [id number] CO2 [Moles/Vol] 24 mmol/L Normal 20-31 [facility] Comment on above: Performed By: #### C BC, CMP, TSH reflex FT4, LIPD #### [facility] [address], [place] [id number] Creatinine [Mass/Vol] 0.9 mg/dL Normal 0.7-1.4 [facility] Comment on above: Performed By: #### C BC, CMP, TSH reflex FT4, LIPD #### [facility] [address], [place] [id number] eGFRAA 97 mL/min/1.73m2 Normal >60 [facility] Comment on above: Performed By: #### C BC, CMP, TSH reflex FT4, LIPD #### [facility] [address], [place] [id number] eGFRNAA 80 mL/min/1.73m2 Normal >60 [facility] Comment on above: Performed By: #### C BC, CMP, TSH reflex FT4, LIPD #### [facility] [address], [place] [id number] Globulin (S) [Mass/Vol] 2.5 g/dL Normal 1.9-3.7 [facility] Comment on above: Performed By: #### C BC, CMP, TSH reflex FT4, LIPD #### [facility] [address], [place] [id number] Glucose [Mass/Vol] 96 mg/dL Normal 65-99 [facility] Comment on above: Result Comment: For FASTING Glucose --- ADA reference ranges: Normal 65-99 mg/dl Prediabetes 100-125 Diabetes >/= 126 Performed By: #### C BC, CMP, TSH reflex FT4, LIPD #### [facility] [address], [place] [id number] Potassium [Moles/Vol] 5.0 mmol/L Normal 3.5-5.5 [place] [facility] Comment on above: Performed By: #### C BC, CMP, TSH reflex FT4, LIPD #### [facility] [address], [place] [id number] Protein [Mass/Vol] 6.8 g/dL Normal 6.1-8.1 [place] [facility] Comment on above: Performed By: #### C BC, CMP, TSH reflex FT4, LIPD #### [facility] [address], [place] [id number] Sodium [Moles/Vol] 141 mmol/L Normal 135-146 Derek rn [place] [facility] Analyst Comment on above: Performed By: #### C BC, CMP, TSH reflex FT4, LIPD #### [facility] [address], [place] [id number] Urea nitrogen [Mass/Vol] 15 mg/dL Normal 7-25 [facility] Comment on above: Performed By: #### C BC, CMP, TSH reflex FT4, LIPD #### [facility] [address], [place] [id number] Lipid Panelon 10-27-2021 Cholesterol [Mass/Vol] 151 mg/dL Normal 125-200 [facility] Comment on above: Result Comment: Low risk < 200mg/dL Borderline risk 201-239 mg/dl High risk > or equal to 240 Performed By: #### C BC, CMP, TSH reflex FT4, LIPD #### [facility] [address], [place] [id number] Cholesterol in HDL [Mass/Vol] 50 mg/dL Normal >40 [facility] Comment on above: Result Comment: High Cardiovascular Risk HDL <40 mg/dL Low Cardiovascular Risk HDL > or equal to 60 mg/dl Performed By: #### C BC, CMP, TSH reflex FT4, LIPD #### [facility] [address], [place] [id number] Cholesterol in LDL [Mass/Vol] 87 mg/dL Normal [facility] Comment on above: Result Comment: LDL ATP III CLASSIFICATION LDL less than 100 mg/dl Optimal LDL 100-129 mg/dl Near or above optimal LDL 130-159 Borderline high LDL 160-189 High LDL greater than 189 mg/dl Very High Performed By: #### C BC, CMP, TSH reflex FT4, LIPD #### [facility] [address], [place] [id number] Cholesterol in VLDL [Mass/Vol] 14 mg/dL Normal [facility] Special[facility] Comment on above: Performed By: #### C BC, CMP, TSH reflex FT4, LIPD #### [facility] [address], [place] [id number] Cholesterol.total/Ch olesterol in HDL [Mass ratio] 3 {ratio} Normal [facility] Comment on above: Performed By: #### C BC, CMP, TSH reflex FT4, LIPD #### [facility] [address], [place] [id number] Triglyceride [Mass/Vol] 69 mg/dL Normal 30-150 [facility] Special[facility] Comment on above: Result Comment: TRIG ATPIII CLASSIFICATIONS TRIG less than 150 mg/dl Normal TRIG 150-199 mg/dl Borderline High TRIG 200-500 mg/dl High TRIG greather than 500 mg/dl Very High Performed By: #### C BC, CMP, TSH reflex FT4, LIPD #### [facility] [address], [place] [id number] PSA SCREEN (MEDICARE)on 10-18 TPSA 0.549 ng/mL Normal <4.000 [facility] Special[facility] Comment on above: Result Comment: PSA Test Method: ECLIA/Jerald e 601 Performed By: #### P SA #### [facility] [address], [place] [id number] TSH w/ Reflex to Free T4on 0 10-27-2021 TSH 0.979 uIU/mL Normal 0.400-4.50 0 [facility] Comment on above: Performed By: #### C BC, CMP, TSH reflex FT4, LIPD #### [facility] [address], [place] [id number] CULTURE, AEROBIC AND ANAEROB IC W/GRAM STAINon 04-16-2020 CULTURE SEE NOTE Normal [facility] Comment on above: Result Comment: CULTURE, AEROBIC BACTERIA Micro Number: [id number] Test Status: Final Specimen Source: SKIN Specimen Quality: Adequate Result: Growth of skin janine (note: Growth does not include S. aureus, beta-hemolytic Streptococci or P. aeruginosa). Performed By: #### 4 446 #### [facility] [address], [address] [place] [address] Credit Checker: Simone Singletary MD CULTURE, ANAEROBIC BACTERIA W/GRAM STAIN SEE NOTE Normal [facility] Comment on above: Result Comment: CULTURE, ANAEROBIC BACTERIA W/GRAM STAIN Micro Number: [id number] Test Status: Final Specimen Source: [id number] Specimen Quality: Adequate Gram Stain: No organisms or white blood cells seen Result: No anaerobes isolated. Performed By: #### 4 446 #### [facility] [address], [address] [place] [address] Credit Checker: Simone Singletary MD Vital Signs Date Time Vital Sign Value Performing Clinician Facility 02-14-2024 10:15-0400 [facility] 78 [facility] 02-14-2024 10:15-0400 Mean blood pressure 111 mm[Hg] Lm Posada [facility] 02-14-2024 10:15-0400 Systolic blood pressure 178 mm[Hg] [facility] 02-14-2024 10:00-0400 [facility] 02-14-2024 10:00-0400 Diastolic blood pressure 92 mm[Hg] Lm Posada [facility] 02-14-2024 10:00-0400 Heart rate 60 /min Lm Posada [facility] 02-14-2024 10:00-0400 SaO2% (BldA) [Mass fraction] 97 % [facility] 02-14-2024 10:00-0400 Systolic blood pressure 185 mm[Hg] [facility] 01-13-2024 09:23-0400 Diastolic blood pressure 72 mm[Hg] mL Posada [facility] 01-13-2024 09:23-0400 Heart rate 70 /min Lm Posada [facility] 01-13-2024 09:23-0400 SaO2% (BldA) [Mass fraction] 99 % Lm Posada [facility] 01-13-2024 09:23-0400 Systolic blood pressure 132 mm[Hg] Lm Posada [facility] 01-05-2024 21:20-0400 Diastolic blood pressure 91 mm[Hg] [facility] 01-05-2024 21:20-0400 Heart rate 80 /min [facility] 01-05-2024 21:20-0400 Mean blood pressure 117 mm[Hg] [facility] 01-05-2024 21:20-0400 Respiratory rate 22 /min [facility] 01-05-2024 21:20-0400 SaO2% (BldA) [Mass fraction] 94 % [facility] 01-05-2024 21:20-0400 Systolic blood pressure 168 mm[Hg] [facility] 01-05-2024 19:30-0400 Diastolic blood pressure 95 mm[Hg] [facility] 01-05-2024 19:30-0400 Heart rate 71 /min [facility] 01-05-2024 19:30-0400 Mean blood pressure 122 mm[Hg] [facility] 01-05-2024 19:30-0400 Respiratory rate 11 /min [facility] 01-05-2024 19:30-0400 SaO2% (BldA) [Mass fraction] 97 % [facility] 01-05-2024 19:30-0400 Systolic blood pressure 175 mm[Hg] [facility] 01-05-2024 18:41-0400 Diastolic blood pressure 89 mm[Hg] [facility] 01-05-2024 18:41-0400 Heart rate 79 /min [facility] 01-05-2024 18:41-0400 Mean blood pressure 113 mm[Hg] [facility] 01-05-2024 18:41-0400 Respiratory rate 22 /min [facility] 01-05-2024 18:41-0400 SaO2% (BldA) [Mass fraction] 98 % [facility] 01-05-2024 18:41-0400 Systolic blood pressure 160 mm[Hg] [facility] 01-05-2024 18:21-0400 Respiratory rate 10 /min [facility] 01-05-2024 18:14-0400 Respiratory rate 14 /min [facility] 01-05-2024 17:40-0400 Body temperature 98.24 [degF] [facility] 01-05-2024 17:40-0400 Heart rate 94 /min [facility] 01-05-2024 17:40-0400 Respiratory rate 16 /min [facility] 12-27-2023 12:09-0400 Blood Pressure Location Lorenzo STILL [facility] 12-27-2023 12:09-0400 Diastolic blood pressure 86 mm[Hg] Lorenzo STILL [facility] 12-27-2023 12:09-0400 Heart rate 84 /min Lorenzo STILL [facility] 12-27-2023 12:09-0400 Respiratory rate 16 /min Lorenzo STILL [facility] 12-27-2023 12:09-0400 Systolic blood pressure 134 mm[Hg] Lorenzo TESSY [facility] 07-09-2023 12:39-0400 Body height 180.34 cm MD Rodney Julio Work Phone: [facility] 07-09-2023 12:39-0400 Body weight 72.57 kg MD Rodney Julio Work Phone: [facility] 07-09-2023 12:38-0400 Body temperature 97.7 [degF] MD Rodney Julio Work Phone: [facility] 07-09-2023 12:38-0400 Diastolic blood pressure 92 mm[Hg] MD Rodney Julio Work Phone: [facility] 07-09-2023 12:38-0400 Heart rate 73 /min MD Rodney Julio Work Phone: [facility] 07-09-2023 12:38-0400 Respiratory rate 20 /min MD Rodney Julio Work Phone: [facility] 07-09-2023 12:38-0400 SaO2% (BldA) [Mass fraction] 98 % MD Rodney Julio Work Phone: [facility] 07-09-2023 12:38-0400 Systolic blood pressure 191 mm[Hg] MD Rodney Julio Work Phone: [facility] 07-05-2023 10:38-0400 Blood Pressure Location Lorenzo TESSY [facility] 07-05-2023 10:38-0400 Diastolic blood pressure 68 mm[Hg] Lorenzo STILL [facility] 07-05-2023 10:38-0400 Heart rate 65 /min Lorenzoalexis STILL [facility] 07-05-2023 10:38-0400 Respiratory rate 16 /min Lorenzoalexis STILL [facility] 07-05-2023 10:38-0400 Systolic blood pressure 116 mm[Hg] Lorenzoalexis STILL [facility] 12-28-2022 13:00-0400 Blood Pressure Location Lorenzoalexis STILL [facility] 12-28-2022 13:00-0400 Diastolic blood pressure 79 mm[Hg] Lorenzoalexis STILL [facility] 12-28-2022 13:00-0400 Heart rate 60 /min Lorenzoalexis STILL [facility] 12-28-2022 13:00-0400 Systolic blood pressure 135 mm[Hg] Lorenzoalexis STILL [facility] 12-07-2022 09:32-0500 Body height 177.8 cm Judah Ledesma Work Phone: [facility] 250 DO Work Phone: 12-07-2022 09:32-0500 Body mass index (BMI) [Ratio] 23.24 kg/m2 Judah Ledesma Work Phone: [facility] 250 DO Work Phone: 12-07-2022 09:32-0500 Body surface area Derived from formula 1.91 m2 Judah Ledesma Work Phone: [facility] 250 DO Work Phone: 12-07-2022 09:32-0500 Body weight 73.48 kg Judah Parkerring Work Phone: [facility] 250 DO Work Phone: 12-07-2022 09:32-0500 Diastolic blood pressure 70 mm[Hg] Judah A Ledesma Work Phone: [facility] 250 DO Work Phone: 12-07-2022 09:32-0500 Heart rate 72 /min Judah A Ledesma Work Phone: [facility] 250 DO Work Phone: 12-07-2022 09:32-0500 Systolic blood pressure 128 mm[Hg] Judah A Ledesma Work Phone: [facility] 250 DO Work Phone: 2022 09:48-0500 Body temperature 97.34 [degF] Judah Ledesma Other Phone: [facility] 2022 09:48-0500 Diastolic blood pressure 72 mm[Hg] Judah Ledesma Other Phone: [facility] 2022 09:48-0500 Heart rate 63 /min Judah Ledesma Other Phone: [facility] 2022 09:48-0500 SaO2% (BldA) [Mass fraction] 95 % Judah Ledesma Other Phone: [facility] 2022 09:48-0500 Systolic blood pressure 165 mm[Hg] Judah Ledesma Other Phone: [facility] Encounters Encounter Date Encounter Type Care Provider Facility Start: 02-14-2024 End: 02-15-2024 ambulatory XXXX N[place] [place] Start: 02-14-2024 End: 02-14-2024 Patient encounter procedure Lm Mesam [facility] Start: 01-31-2024 End: 02-16-2024 ambulatory [facility] Start: 01-27-2024 End: 01-28-2024 ambulatory Bashar X [place] [place] Start: 01-27-2024 End: 01-27-2024 Patient encounter procedure Bashar X [place] [facility] Start: 01-13-2024 End: 01-14-2024 ambulatory Bashar X [place] [place] Start: 01-13-2024 End: 01-13-2024 Patient encounter procedure Bashar X [place] [facility] Start: 01-05-2024 End: 01-05-2024 Emergency department patient visit Davi Drummondcorinne [place] [place] Start: 01-05-2024 End: 01-05-2024 Emergency department patient visit [facility] Dash Drummondcorinne [facility] Start: 12-27-2023 End: 12-28-2023 ambulatory Lorenzo STILL [place] [place] Start: 12-27-2023 End: 12-28-2023 ambulatory Lorenzo STILL Facility:[facility] Start: 12-27-2023 End: 12-27-2023 Lab Drop off Lorenzo STILL [facility] Start: 12-27-2023 End: 12-27-2023 Patient encounter procedure Lorenzo STILL [facility] Start: 10-27-2023 End: 10-27-2023 ambulatory ABRAHAN SANDS Not Available Start: 07-09-2023 End: 07-09-2023 Emergency department patient visit Abrahan Sands Facility:[facility] Start: 07-09-2023 End: 07-09-2023 Emergency department patient visit MD Rodney Julio Work Phone: [facility] Work Phone: Start: 07-05-2023 End: 07-06-2023 ambulatory Lorenzo STILL Facility:[facility] Start: 07-05-2023 End: 07-05-2023 Patient encounter procedure Lorenzo STILL [facility] Start: 06-29-2023 End: 06-30-2023 ambulatory KAT SAUCEDO [place] [place] Start: 12-28-2022 End: 12-28-2022 Patient encounter procedure Lorenzo STILL [facility] Start: 12-07-2022 Office outpatient vi sit 25 minutes Judah Ledesma Work Phone: [facility] 250 DO Work Phone: Start: 12-07-2022 ambulatory Judah Alejandra II Facility: Start: 12-04-[address] Goran Palmer Facility: Start: 11-30-2022 End: 11-30-2022 Lab Drop off Lorenzo STILL [facility] Start: 11-30-2022 End: 11-30-2022 Patient encounter procedure Lorenzo STILL [facility] Start: 10-29-2022 Patient encounter procedure Judah Ledesma Work Phone: [facility] 250 DO Work Phone: Start: 10-29-2022 ambulatory Judah Alejandra II Facility: Start: 10-23-2022 AUDIT Judah arenas Work Phone: [facility] Work Phone: Start: 10-22-2022 End: 2022 Evaluation and management of inpatient Feng Ospina 8 Cardio ICU 814 01 Start: 10-21-2022 End: 10-22-[address] JUDAH ALEJANDRA Facility:[facility] Start: 05-22-2022 End: 05-23-[address] JUDAH ALEJANDRA Facility:[facility] Start: 04-27-2022 End: 04-27-2022 Patient encounter procedure Lorenzo STILL [facility] Procedures Date Procedure Procedure Detail Performing [...] Activity Detail Author Start: 07-10-2024 ambulatory Ambulatory Facility:[facility] Start: 12-07-2022 FUV, Provider: Jc Everett, Status: Pen, Time: 9:50 AM FUV, Provider: Jc Everett, Status: Pen, Time: 9:50 AM -[facility] [facility] DO Work Phone: Start: 10-22-2022 End: 10-23-2023 [facility] H/O: surgery History of cochl ear implant [facility] History of tonsillectomy History of tonsi llectomy [facility] NSTEMI, initial epis ode of care NSTEMI, initial episode of care [facility] Patient referral [facility] Work Phone: Immunizations Immunization Date Immunization Notes Care Provider Mary tee 08-05-2022 influenza virus vaccine, unspecified formulation Lorenzo STILL [facility] 09-22-2021 SARS-CoV-2 (COVID-19 ) mRNA BNT-162b2 vax Lorenzo STILL [facility] 08-26-2021 influenza virus vaccine, unspecified formulation Lorenzo STILL [facility] 01-03-2021 SARS-CoV-2 (COVID-19 ) mRNA BNT-162b2 vax Lorenzo STILL [facility] 12-13-2020 SARS-CoV-2 (COVID-19 ) mRNA BNT-162b2 vax Lorenzo STILL [facility] 06-14-2019 influenza virus vaccine, unspecified formulation Lorenzo STILL [facility] 08-13-2018 influenza virus vaccine, unspecified formulation Lorenzo STILL [facility] 07-18-2018 influenza virus vaccine, unspecified formulation Lorenzo STILL [facility] 08-11-2017 influenza, unspecifi ed formulation Lorenzo STILL [facility] 06-07-2017 influenza virus vaccine, unspecified formulation Lorenzo STILL [facility] 06-07-2017 tetanus toxoid, redu latanya diphtheria toxoid, and acellular pertussis vaccine, adsorbed Lorenzo STILL [facility] 11-29-2015 influenza virus vaccine, unspecified formulation Lorenzo STILL [facility] 03-18-2015 pneumococcal polysaccharide vaccine, 23 valent Lorenzo STILL [facility] 01-23-2015 pneumococcal conjuga te vaccine, 13 valent Lorenzoalexis STILL [facility] NEGATED: Highlighted row has not occurred!08-30-2020 influenza virus vaccine, unspecified formulation Lorenzo STILL [facility] Payers Date Payer Category Payer Medicare [id number] 2023 Self-pay [id number] 2022 Private Health Insurance [id number] 1959 Medicare [id number] 1959 Medicare [id number] 1950 Unknown [id number] 2.16.840.1.068232.3.579.2.5 93 1948 Unknown [id number] 2.16.840.1.038074.3.579.2.5 93 1948 Unknown [id number] 2.16.840.1.440818.3.579.2.1 068 1948 Unknown [id number] 2.16.840.1.127701.3.579.2.3 56 1948 Unknown [id number] 2.16.840.1.529106.3.579.2.3 56 1948 Unknown [id number] 2.16.840.1.119974.3.579.2.3 56 1948 Unknown [id number] 2.16.840.1.748563.3.579.2.1 259 1948 Unknown [id number] 2.16.840.1.298036.3.579.2.1 286 1948 Unknown [id number] 2.16.840.1.837244.3.579.2.7 27 1948 Unknown [id number] 2.16.840.1.221462.3.579.2.7 27 1948 Unknown [id number] 2.16.840.1.820992.3.579.2.7 27 1948 Unknown [id number] 2.16.840.1.907404.3.579.2.7 27 1948 Unknown [id number] 2.16.840.1.723568.3.579.2.7 27 1948 Unknown [id number] 2.16.840.1.991602.3.579.2.7 27 1948 Unknown [id number] 2.16.840.1.893466.3.579.2.7 27 1948 Unknown [id number] 2.16.840.1.253665.3.579.2.7 27 1948 Unknown [id number] 2.16.840.1.068518.3.579.2.7 27 1948 Unknown [id number] 2.16.840.1.287838.3.579.2.7 27 Medicare [id number] Unknown Unknown [employer] [id number] Unknown [id number] 2.16.840.1.771405.3.579.2.5 31 Social History Date Type Detail Facility Start: 10-27-2021 End: 12-27-2023 Tobacco smoking status Never smoked tobacco (finding) [facility] Sex Assigned At Male [facility] Former smoker Former smoker [facility] Work Phone: Comment on above: 8 cups of coffee; Tobacco smoking consumption unknown [facility] Tobacco smoking status Never [facility] Start: 1950 Sex Assigned At Male [facility] Functional Status Date Assessment Result Facility 02-14-2024 Functional Status No [facility] 01-13-2024 Functional Status N/A [facility] 01-05-2024 Functional Status N/A [facility] 12-27-2023 Functional Status N/A [facility] 07-05-2023 Functional Status N/A [facility] 12-28-2022 Functional Status N/A [facility] 04-27-2022 Functional Status N/A [facility] Functional observable [facility] Mental Status Date Assessment Result Facility 10-23-2022 Cognitive functions 23-Oct-19 2311:49 [facility] Clinical Notes 04-27-2022 to 01-13-2024 Note [...] Locations R1: [facility] at[facility], [address] [place] [address], [address] [place] [address], [facility] Comment on above: Performed By: #### 2 [id number], [id number], [id number], [id number], [id number] #### [facility] [address] [place] [address] 01-13-2024 Note Microbiology PROCEDURE: Blood Culture Charcoal [...] Locations R1: This test was performed at: [facility], [address] [place] [address], [address] [place] [address], [facility] Comment on above: Performed By: #### 2 [id number], [id number], [id number], [id number], [id number] #### [facility] [address] [place] [address] 01-05-2024 Hospital Discharg e instructions Patient Education 01/05/2024 21:23:20 Chronic Obstructive Pulmonary Disease, Dsmt-mf-Gida Chronic Obstructive Pulmonary Disease Chronic obstructive pulmonary [...] Follow these instructions at home: Medicines Take aorm-mjy-jnhyueb and prescription medicines only as told by [...] keep yourself as healthy as possible. Take ncdb-cza-mvrijpp and prescription medicines only as told by your doctor. If you smoke, stop. Smoking makes the problem worse. This information is not intended to replace advice given to you by your health care provider. Make sure you discuss any questions you have with your health care provider. Document Revised: 08/12/2021 Document Reviewed: 08/12/2021 [employer] Patient Education 2022 HandUp PBC. Follow Up Care 01/05/2024 17:38:36 With:Lm Posada Address: [address] [place] [phone]- [phone] Business (1) When:01/08/2024 21:01:21 Comments:Take the steroids once daily until you have completed the course, use the nebulizers every 4 hours for the next 2 to 3 days then decrease to as needed. He is follow-up with your primary care doctor in the next 2 to 3 days. Please return to the ED for any new or worsening symptoms. With:JUDAH ALEJANDRA Address: [address] [place] [phone]- Business (1) When:Within 3 Day(s) [facility] 01-05-2024 Evaluation + Plan note Extrac [...] Therapy PT & PTT [place] [place] Saline Lock Insert Troponin 0 Hr. Troponin [...] Date:07/10/2024 11:30:00 AM Scheduled Provider:Lorenzo STILL MD Location:[facility] Appointment Type:URO Office Visit Diagnostic Tests Pending * Blood Culture Charcoal 01/05/24 * Blood Culture Charcoal 01/05/24 Future Scheduled Tests Laboratory* PSA Total 07/05/23 [facility]03-11-2024 Hospital Discharge instructions Patient Education 12/27/2023 [...] if anything looks unusual. Men with a pdfutq-sfvj-irlltq risk for skin cancer may want to see a hide and skin fleshing machine operator (bedspread cutter) for an annual body check. What are the benefits of screening? Cancer screening is done to look for cancer in the very early stages, before it spreads and becomesharder to treat and before you would start to notice symptoms. Finding cancer early improves the chances of successful treatment. It may save your life. Where to find more information [place] [employer]: www.cancer.org Centers for Disease Control and Prevention: www.cdc.gov National Cancer [place]: www.cancer.gov Contact a health care provider if: [...] provider. Document Revised: 03/02/2022 Document Reviewed: 08/30/2020 [employer] Patient Education 2022 HandUp PBC. Follow Up Care 07/05/2023 11:48:50 With:TESSY MORE, Lorenzo Azul, URL Address: [facility] [address] [place] [address] [id number] When: Unknown Comments:6 months w/ PSA and possible Lupron [facility] 09-18-2023 Hospital Discharge instructions Patient Education [...] urethra. Follow these instructions at home: Take lvrq-klj-yjgkuej and prescription medicines only as told by [...] provider. Document Revised: 04/22/2022 Document Reviewed: 04/22/2022 [employer] Patient Education 2022 HandUp PBC. Follow Up Care 12/28/2022 13:54:45 With:TESSY MORE, Lorenzo Azul, URL Address: [facility] [address] [place] [address]- [phone] When:Within 6 Month(s) Comments:w/PSA [facility] [place] 03-13-2023 Hospital Discharge instructions Patient [...] who: Are older than age 65. Are -[place]. Are obese. Have a family history of [...] cells. Follow these instructions at home: Take dtlm-bjl-tbwqbjj and prescription medicines only as told by [...] 10/04/2006 Document Revised: 09/16/2018 Document Reviewed: 06/14/2017 [employer] Patient Education 2020 HandUp PBC. Follow Up Care 07/31/2022 10:51:30 With:TESSY MORE, Lorenzo Azul, URL Address: [facility] [address] , [place] [address]- When: Unknown [facility] 01-08-2023 NoteSend Summary: Discharge Summary Providers: Provider RoleProvider Name AttendingFeng Winston ReferringMarkerStacy Maria PrimaryJudah Ledesma Note Recipients: Judah Ledesma MD - [id number] [] Marker, Stacy Cornejo MD - [id number] [] Discharge: Summary: Admission Date: .22-Oct-2022 04:30:00 Discharge Date: 25-Oct-2022 Attending Physician at Discharge: Feng Winston Admission Reason: chest pain Final Discharge Diagnoses: Chest pain Procedures: Left heart catheterization Condition at Discharge: Satisfactory Disposition at Discharge: .Home Vital Signs: T PRBPMAPSpO2 Value36.37021025/3357822% Date/Time10/25 7: 7: 15:1618 7: 7: 7:48 Range(36.1C - 36.5C ) (63 - 67 ) (18 - 18 ) (145 - 165 )/ (65 - 80 ) (94 - 109 ) (93% - 96% ) As of 25-Oct-2022 07:48:00, patient is on 2 L/min of oxygen via nasal cannula. Date: Weight/Scale Type:Height: 22-Oct-2022 04:4174.8 kg / jub122.1 cm Physical Exam: A&O x3 PERRL EOMI, [...] on Wednesday to schedule these appointments Location: [facility] in [place] Follow-Up Appointment 03: Physician/Dept/Service: Dr. Everett- Solutions Specialist Reason for Referral: discuss report of event monitor Location: [facility] in [place] Discharge Medications: Home Medication Trelegy Ellipta 200 [...] Completion Last Updated: 25-Oct-2022 10:45 by Feng Winston)[facility] 2022 Hospital Discharge instructions* Follow Up Appointment 2:Physician/Dept/Service: 30-day event monitorReason for Referral: Monitor mariya rt rhythmLocation: [facility] heart office in [facility] Number: [phone] * Follow Up Appointment 3:Physician/Dept/Service: Dr. 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 Are -[place]. Are obese. Have a family history of [...] cells. Follow these instructions at home: Take cfvf-tmc-gaswlrc and prescription medicines only as told by [...] 10/04/2006 Document Revised: 09/16/2018 Document Reviewed: 06/14/2017 [employer] Patient Education 2020 HandUp PBC. Follow Up Care 10/27/2021 14:18:56 With:TESSY MORE, Lorenzo Azul, URL Address: [facility] [address] , [place] [address] [phone] When:Within 3 Month(s) Comments:f/u PSA in 3 months [facility] conskwq note Author Rodney [facility] July 09, 2023 2:06pm Note Date/Time July 09, 2023 2:07pm [facility] [address] [place] [address] Plastic Surgery Consult Note Signed Patient: Farhan Lassiter MR#: [id number] : 1950 Acct:[id number] Age/Sex: 72 / M Adm Date: 3 Loc: ER Room: Type: [facility] ER Attending Dr: Copies to: MD Abrahan Joel MD~ HPI Consult Narrative Date of Consultation: 07/09/23 History of Present Illness: Mr. Lassiter is a 72 year old male status post dog bite to his lip and neck. 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 Denies any other injuries. Review of Systems Review of Systems All other systems reviewed & are negative unless noted below or in HPI [facility] Medical History (Updated 07/09/23 @ 14:03 [...] signed by MD Rodney Julio> 07/09/[address] [facility] Work Phone: Evaluation + Plan note Future Appointments Appointment Date:07/31/2022 09:45:00 AM Scheduled Provider:Lorenzo STILL MD Location:[facility] Appointment Type:URO Office Visit Diagnostic Tests Pending * PSA Total 04/27/22 [facility] evaluation + Plan note Future Appointments Appointment Date:12/28/2022 01:30:00 PM Scheduled Provider:Lorenzo STILL MD Location:[facility] Appointment Type:URO Office Visit [facility] evaluation + Plan note Future Appointments Appointment Date:07/02/2023 11:00:00 AM Scheduled Provider:Lorenzo STILL MD Location:[facility] Appointment Type:URO Office Visit Diagnostic Tests Pending * PSA Total 12/28/22 [facility] evaluation + Plan note Future Appointments Appointment Date:12/27/2023 11:30:00 AM Scheduled Provider:Lorenzo STILL MD Location:[facility] Appointment Type:URO Office Visit Future Scheduled Tests Laboratory* PSA Total 07/05/23 [facility] evaluation + Plan note Future Appointments Appointment Date:07/10/2024 11:30:00 AM Scheduled Provider:Lorenzo STILL MD Location:[facility] Appointment Type:URO Office Visit Diagnostic Tests Pending * PSA Total 12/27/23 Future Scheduled Tests Laboratory* PSA Total 07/05/23 [facility] evaluation + Plan note Future Appointments Appointment Date:07/10/2024 11:30:00 AM Scheduled Provider:Lorenzo STILL MD Location:[facility] Appointment Type:URO Office Visit Future Scheduled Tests Laboratory* PSA Total [facility]05/23 [facility] Future Appointments Appointment Date:01/27/2024 12:30:00 PM Scheduled Provider: [facility] Type:PUL Pulmonary Function Test (FT) Appointment Date:01/27/2024 01:30:00 PM Scheduled Provider: Location:.[facility] Appointment Type:PUL Six Minute Walk Test (FT) Appointment Date:02/14/2024 09:45:00 AM Scheduled Provider:Lm Posada MD Location[facility] Appointment Type:Pulmonary Follow Up (FT) Appointment Date:07/10/2024 11:30:00 AM Scheduled Provider:Lorenzo STILL MD Location:[facility] Appointment Type:URO Office Visit Future Scheduled Tests Laboratory* PSA Total 07[facility]05/23 [facility] Future Appointments Appointment Date:02/14/2024 09:45:00 AM Scheduled Provider:Lm Posada MD Location[facility] Appointment Type:Pulmonary Follow Up (FT) Appointment Date:07/10/2024 11:30:00 AM Scheduled Provider:Lorenzo STILL MD Location:[facility] Appointment Type:URO Office Visit Future Scheduled Tests Laboratory* PSA Total 07[facility]05/23 [facility] Cardiovascular: Regular, rate and rhythm, no [...] in upper lobesPsychological: Appropriate mood and behavior [facility] noteNo assessment information available [facility] Work Phone: History of Present illness Narrative* Patient is seen by me for the first time. He apparently was briefly hospitalized in [place] and transferred to [facility]. The original reason for this is unclear. Nonetheless in [facility] he was evaluated with coronary angiography and [...] with primary care CS only as needed. -[facility] DO Work Phone: Hospital course Narrative No data available for this section [facility] Hospital Discharge instructions No data available for this section [facility] Hospital Discharge instructions Additional Instructions DISCHARGE [...] the incision. PLEASE NOTIFY OUR OFFICE at [phone] if you: -Develop a fever of 101 [...] rate. FOLLOW UP -Call the office at [phone] for a follow up appointment 1 week. * AFTER HOURS PHONE NUMBER [phone] *[facility] Work Phone: Progress note No data available for this section [facility] reason for referral (narrative)* Reason for Referral: decline in self care performance [facility] Summary Purpose Family History No Family [...] DATE CREATED AUTHOR AUTHOR'S ORGANIZ ATION 10/28/2021 [facility] DATE CREATED AUTHOR AUTHOR'S ORGANIZ ATION 10/28/2022 [facility] [place] [facility] DATE CREATED AUTHOR AUTHOR'S ORGANIZ ATION 10/31/2022 [facility] DATE CREATED AUTHOR AUTHOR'S ORGANIZ ATION 12/08/2022 [facility] DATE CREATED AUTHOR AUTHOR'S ORGANIZ ATION 12/15/2022 [facility] DATE CREATED AUTHOR AUTHOR'S ORGANIZ ATION 07/11/2023 [facility] DATE CREATED AUTHOR AUTHOR'S ORGANIZ ATION 10/28/2023 [facility] Specialists EPIC DATE CREATED AUTHOR AUTHOR'S ORGANIZ ATION 02/17/2024 [facility] DATE CREATED AUTHOR AUTHOR'S ORGANIZ ATION 02/29/2024 [facility] Care Team (unrecognized sect ion [...] Physician: Dr. Allan sent to: [employer] number [id number] applied.TAN is here for the application of aOrdering Physician:Event Monitor:TAN is here for the application of a 30 day event monitor in office., Diagnosis: PSVTOrdering Physician: Dr. Allan sent to: [employer] number [id number] applied.TAN is here for the application of aOrdering Physician:Event Monitor:TAN is here for the application of a 30 day event monitor in office., Diagnosis: PSVTOrdering Physician: Dr. Allan sent to: [employer] number [id number] applied.TAN is here for the application of [...] BE BASED ON THE PRIMARY CLINICAL RECORDS. [employer] [facility]. provides no warranty or guarantee of the accuracy or completeness of information in this document.
--- NOTE | 2024-03-07 09:45 | CM.NOTE ---
Rounds made with Dr. Lemus, no discharge today. Continue IV antibiotics, pt will also have PT and OT evaluation today for discharge planning.
--- NOTE | 2024-03-07 09:47 | P.HP_ITS ---
<Statement entered by Brennan Lemus MD - 03/08/24 11:27> This documentation has been reviewed and approved. Patient was seen and examined at the bedside. Reviewed case with nurse practitioner as well. Agree with input and findings from nurse practitioner. Additional diagnosis of acute kidney injury with 136.8% above baseline. HPI H&P: HPI History of Present Illness Chief complaint: Altered Mental Status Narrative: 03/07/24 0855 This is a 73-year-old male patient with a past medical history as outlined below including COPD, hypertension, RA, hyperlipidemia, and prostate cancer; who presented to the ED via EMS [place] after being found by bystanders with altered mentation and difficulty breathing. Workup in the ED revealed hypertensive urgency (218/115), tachycardia (134), tachypnea (32), and shortly after arrival fever (103.6). The patient was awake on arrival but could not communicate how old he was or where he was and did not follow commands well. Labs revealed mild hyperglycemia (129), lactic acidosis (3.2), and he was COVID-positive. A chest x-ray revealed mild patchy opacification of the right lower lobe suspicious for pneumonia. He was admitted last night to the hospitalist service as an inpatient for sepsis, COVID-19 pneumonia, and lactic acidosis. At the time of my exam the patient is resting comfortably in bed. He is awake and alert and oriented x 3 and all altered mentation appears to have resolved. He continues to complain of a nonproductive cough and shortness of breath, but otherwise denies chest pain, N/V/D, or dizziness. He reports feeling well yesterday morning and had abrupt onset of symptoms just prior to being sent to the ER. He reportedly has advanced COPD and is being approved currently for home O2, but has not yet received O2 canisters at the house. His blood pressure normalized overnight, and his tachycardia/tachypnea resolved. He is afebrile at this time. Opioid HPI Opioid Management Most Recent Opioid Data: Last Pain Scale 2 06/15/23 05:32 Last Pain Intensity 5 03/26/23 09:27 Last Pain Assessment 03/07/24 07:00 Last MAR Pain Assessment 03/06/24 19:10 Last ORT Total Score 0 03/06/24 23:15 Last ORT Risk Category Low Risk 03/06/24 23:15 Review of Systems ROS Status of ROS 10 or more systems reviewed and unremark able except as noted in history and below [facility] Medical History (Updated 03/07/24 @ 10:30 by Kylah Edwards NP) Hyperlipidemia ?E78.5 - Hyperlipidemia, unspecified (ICD-10) Prostate cancer ?C61 - Malignant neoplasm of prostate (ICD-10) Rheumatoid arthritis ?M06.9 - Rheumatoid arthritis, unspecified (ICD-10) Hypertension ?I10 - Essential (primary) hypertension (ICD-10) COPD (chronic obstructive pulmonary disease) ?J44.9 - Chronic obstructive pulmonary disease, unspecified (ICD-10) Hearing loss ?H91.90 - Unspecified hearing loss, unspecified ear (ICD-10) Surgical History History of tonsillectomy ?Z90.89 - Acquired absence of other organs (ICD-10) Social History (Updated 03/07/24 @ 04:46 by Karlene Posey RN) Within the past year, how often did you have a drink containing alcohol: monthly or less Smoking status: Former smoker Non-prescribed substance use: denies use Previous occupational history: none Highest level of school completed/degree received: 11th grade Do you want help with school or training: No Are you now , , , , never or living with a partner: refused to answer In a typical week, how many times do you talk on the telephone with family, friends, or neighbors: 3 or more times per week How often do you get together with friends or relatives: 3 or more times per week How often do you attend yazdanism or denominational services: 4 or more times per year Do you belong to any clubs or organizations such as yazdanism groups unions, fraternal or athletic groups, or school groups: no Total score: 2 Score interpretation: A score of greater than or equal to 2 indicates the lowest level of social isolation. Little interest or pleasure in doing things: not at all Feeling down, depressed, or hopeless: not at all Feel stressed/tense/nervous/anxious/difficulty sleeping: not at all Due to disability, difficulty making decisions: No Do you think of yourself as: straight/heterosexual Gender Identity: male Meds Home Medications and Allergies Home Medications ?Medication ?Instructions ?Recorded ?Confirmed ?Type albuterol sulfate 2.5 mg/3 mL 2.5 mg inhalation Q6H PRN 03/25/23 03/07/24 History (0.083 %) solution for nebulization shortness of breath or wheezing bicalutamide 50 mg tablet 50 mg PO DAILY 03/25/23 03/07/24 History atorvastatin 10 mg tablet (Lipitor) 10 mg PO QPM 06/14/23 03/07/24 History aspirin 81 mg capsule 81 mg PO DAILY 30 days #30 caps 06/15/23 03/07/24 Rx lisinopril 5 mg tablet 5 mg PO DAILY 30 days #30 tabs 06/15/23 03/07/24 Rx budesonide 160 mcg-glycopyr 9 2 inh inhalation BID 03/07/24 03/07/24 History mcg-formot 4.8 mcg/actuation HFA inhaler (Breztri Aerosphere) fluticasone fur. 100 mcg-umeclid 1 inh inhalation Q24H 03/07/24 03/07/24 History 62.5 mcg-vilant 25 mcg inhalat.powder (Trelegy Ellipta) methotrexate sodium 2.5 mg tablet 10 mg PO .WEEKLY 03/07/24 03/07/24 History Allergies Allergy/AdvReac Type Severity Reaction Status Date / Time Penicillins Allergy Severe Verified 06/13/23 20:21 prednisone Allergy Intermediate Rash Verified 06/13/23 20:21 Exam Constitutional Vital Signs, click to edit/add: Last Vital Signs Temp 98.1 F 03/07/24 03:31 Pulse 66 03/07/24 07:00 Resp 20 03/07/24 03:31 BP 121/68 03/07/24 03:31 Pulse Ox 95 03/07/24 03:31 O2 Del Method Nasal Cannula 03/07/24 03:31 O2 Flow Rate 2 03/07/24 03:31 Common normals: no apparent distress, oriented x3, alert and well nourished General appearance: cooperative Orientation/consciousness: Yes awake HENAL Common normals: normocephalic, head/scalp atraumatic, external nose normal and moist oral mucous membranes Eye Common normals: PERRL, EOMs intact bilaterally, conjunctivae normal and no scleral icterus Alignment: alignment normal Eyelid: eyelids normal Neck & C-Spine Common normals: full ROM, supple and no JVD Chest Common normals: inspection of chest normal Chest: symmetrical chest wall rise Respiratory Common normals: normal respiratory effort, no retractions, no use of accessory muscles and clear to auscultation bilaterally Effort & inspection: able to speak in complete sentences Auscultation: diminished lung sounds (BLL); no rales, no rhonchi and no wheezes Cardio Common normals: no JVD, regular rate, regular rhythm, S1 normal heart sound, S2 normal heart sound, no gallops, no clicks, no murmurs, no rub and peripheral pulses 2+ throughout GI Common normals: Normal to inspection, nondistended, normoactive bowel sounds present, soft to palpation, non-tender, no hepatosplenomegaly, no masses and no bruits Bladder/kidney exam: bladder normal to palpation Back & Pelvis Common normals: thoracic and lumbar spine normal to inspection Extremity Common normals: normal capillary refill and no pedal edema General: normal exam except as noted; no clubbing and no cyanosis Neuro Julio Cesar Coma Scale: GCS not evaluated Common normals: CN's II-XII intact bilaterally, moves all extremities, no focal motor deficits and no sensory deficits noted Speech: speech normal Motor exam: strength 5/5 throughout Psych Common normals: mental status grossly normal, thought process normal, affect normal and activity/motor behavior normal Results Labs Labs: Short CBC 03/06/24 03/07/24 Range/Units 18:45 03:52 WBC 11.1 H 14.5 H (4.0-11.0) 10^3/uL Hgb 14.0 12.3 L (14.0-18.0) g/dL Hct 42.5 36.0 L (42.0-54.0) % Plt Count 297 213 (150-450) 10^3/uL BMP 03/06/24 03/07/24 18:45 03:52 Sodium 138 137 Potassium 4.2 4.3 Chloride 102 105 Carbon Dioxide 25.8 24.8 BUN 17.0 24.0 H Creatinine 1.17 1.45 H Glucose 129 H 104 Calcium 9.3 8.6 Liver Function 03/07/24 Range/Units 03:52 Total Bilirubin 0.6 (0.2-1.0) mg/dL AST 84 H (15-37) U/L ALT 92 H (16-63) U/L Alkaline Phosphatase 65 (46-116) U/L Albumin 2.8 L (3.4-5.0) g/dL Pulse Oximetry Attestation: I have reviewed the pertinent pulse oximetry results. ECG Attestation: ?I have reviewed the pertinent ECG results. Interpretation: Sinus tachycardia With frequent ventricular premature complexes RSR (QR) in lead V1/V2, consistent with RV conduction delay ST/T wave changes, cannot exclude inferolateral ischemia Abnormal ECG Imaging Chest x-ray: Attestation: I have reviewed the pertinent imaging results. Radiologist's impression: IMPRESSION: Mild patchy opacification of the right base. Differential includes atelectasis, aspiration, and pneumonia. Recommend follow-up radiograph in 4-6 weeks, allowing sufficient time after appropriate therapy to evaluate for radiographic improvement/resolution. Assessment and Plan Assessment and Plan (1) Sepsis: Assessment and Plan: Acute * Adm inpatient * We expect greater than a 2 midnight stay for medically necessary hospital care including IV ABX, IV Remdesivir, IVFs, close monitoring of labs * Sepsis AEB: * SEP1 Criteria (Severe Sepsis): SIRS (Temp 103.6, HR 134, RR 32, WBC 14.5), Lactic acid 3.2, Source - RLL COVID 19 Pneumonia * SEP3 Criteria (Sepsis w/o shock): qSOFA 2/3 (AMS w/ disorientation on presentation, RR 32), Source - RLL COVID 19 Pneumonia * Lactic acidosis - 3.2, 3.3, 2.8. * Trending down but not yet normalized * Repeat now - pending * NS 500 ml bolus given in ED * NS IVF at 100 ml/hr since admission last night, increase to 125/hr at least until lactic acidosis resolves * Monitor I&O closely to avoid fluid overload * No evidence of hypotension or poor peripheral circulation * Hold home methotrexate for now d/t acute infection/sepsis * CBC, CMP daily Qualifiers: Sepsis acute organ dysfunction status: with acute organ dysfunction Sepsis type: sepsis due to unspecified organism Severe sepsis acute organ dysfunction type: encephalopathy Severe sepsis shock status: without septic shock Qualified Code(s): A41.9 - Sepsis, unspecified organism; R65.20 - Severe sepsis without septic shock; G93.41 - Metabolic encephalopathy (2) Pneumonia due to COVID-19 virus: Assessment and Plan: Acute * COVID 19 pos in ED w/ RLL infiltrates on CXR * Levaquin 750 mg daily for possible secondary bacterial pneumonia * Sputum culture if able to obtain to direct ABX * Consider adding double coverage w/ Rocephin pending clinical course * Remdesivir daily per protocol * Guaifenesin ER BID and OPEP for sputum mobilization * Duoneb q4h PRN * O2 as needed to keep sats above 90% * Reportedly has chronic resp failure from COPD and is starting home O2 as needed * Wean off current O2 if able - no documented hypoxia * Hold home methotrexate for now d/t acute infection/sepsis * CBC, CMP daily (3) Lactic acidosis: Assessment and Plan: Acute * See sepsis (4) Hyperlipidemia: Assessment and Plan: Chronic * Continue home statin (5) Prostate cancer: Assessment and Plan: Chronic * Continue home bicalutamide if pt is able to provide home medication (not on formulary) (6) Rheumatoid arthritis: Assessment and Plan: Chronic * Hold home methotrexate for now d/t acute infection/sepsis * Plan to resume at d/c Qualifiers: Rheumatoid arthritis location: multiple sites Rheumatoid factor presence: with rheumatoid factor Qualified Code(s): M05.79 - Rheumatoid arthritis with rheumatoid factor of multiple sites without organ or systems involvement (7) Hypertension: Assessment and Plan: Chronic * Continue home ACEi Qualifiers: Hypertension type: primary hypertension Qualified Code(s): I10 - Essential (primary) hypertension (8) COPD (chronic obstructive pulmonary disease): Assessment and Plan: Chronic * Continue home Breztri/Trelegy if pt is able to provide - not on formulary. Otherwise, pharmacy to substitute per formulary
[2024-03-07] MEDS: ALBUTEROL SULFATE 2.5 MG/3 ML VIAL NEB IH ×3 (10:52→20:15)
[2024-03-07] MEDS: BUDESONIDE 0.5 MG/2 ML AMPULE NEB IH ×2 (10:53→20:15)
[2024-03-07] MEDS: LISINOPRIL 5 MG TABLET PO (10:54)
[2024-03-07] MEDS: METOPROLOL TARTRATE 50 MG TABLET PO (10:54)
[2024-03-07] MEDS: DEXAMETHASONE SOD PHOS 20 MG/5 ML VIAL 6 MG IV (10:54)
[2024-03-07] MEDS: ENOXAPARIN SODIUM 40 MG/0.4 ML SYRINGE SUBQ (10:54)
[2024-03-07 10:56] LABS: INR 1.01; Partial Thromboplastin Time 26.5 sec (22.3-36.2); Prothrombin Time 10.7 sec (9.0-11.6)
--- NOTE | 2024-03-07 14:52 | SWNOTE1 ---
FRANKIE met with pt to discuss dc needs. Pt lives at home alone. 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 The dog trainers help pt at home as needed and they are caring for his dogs now. Pt is independent at home. Pt is hard of hearing and he is not able to read. Pt reads lips when speaking to him. FRANKIE asked pt if he still had an inogen machine. He voiced that Opal, his friend, took him to see a lung doctor in [place]. The lung doctor sent an order for him to have portable oxygen at night. He voiced he only wears it at night if he even needs it. FRANKIE asked who lung doctor was and he stated his office is behind hospital in [place]. SW again asked if he has inogen machine? He voiced he does still have portable and that Annamaria sent the new order in for a new one. Pt voices he has no discharge needs at this time. Important Message from Medicare reviewed and discussed with patient. Pt. verbalized understanding and signed the form. Original given to patient and copy placed in patient?s chart. Pt voiced he will need help ordering supper as he can't read. He would like to order at 5:00. FRANKIE notified aide and nurse.
--- NOTE | 2024-03-07 15:47 | SWNOTE1 ---
FRANKIE has a message out to So, pt's emergency contact to see if pt does have home oxygen or an inogen machine, waiting for call back.
[2024-03-07 16:05] LABS: C. Difficile PCR NEGATIVE (NEGATIVE)
[2024-03-07] MEDS: ATORVASTATIN CALCIUM 10 MG TABLET PO (20:37)
[2024-03-08] VITALS (12 sets, daily range): BP systolic 125–136; BP diastolic 68–78; PULSE 70–97; TEMP 36.6–36.8; O2SAT 94–97
[2024-03-08] MEDS: DIPHENHYDRAMINE HCL 50 MG/ML (1ML) VIAL 25 MG IV (00:21)
[2024-03-08] MEDS: ONDANSETRON PF 4 MG/2 ML VIAL IV (00:21)
[2024-03-08] MEDS: MAALOX (MAG HYDROX/ALUMINUM HYD/SIMETH) 30 ML ORAL.SUSP PO (00:21)
[2024-03-08] MEDS: LOPERAMIDE HCL 1 MG/7.5 ML LIQUID PO (00:22)
--- NOTE | 2024-03-08 04:00 | XR_ITS ---
The [address] [address] Patient Name: ARISTIDES LASSITER MRN: [id number] date: 1950 Sex: M Assigned Patient Location: [place] Current Patient Location: [place] Accession/Order Number: [id number] Exam Date: 03/08/2024 03:53 Report Date: 03/08/2024 05:26 At the request of: BAKARI NI Procedure: XR chest 1V EXAMINATION: XR chest 1V HISTORY: SOB/RLL PNA/COVID 19 ; productive cough COMPARISON: XR chest 03/06/2024 FINDINGS: LUNGS: Mild opacities within right lung base without obscuration of the heart and diaphragm margin. VASCULATURE: No increased pulmonary vasculature. PLEURA: No pneumothorax, effusion, or pleural thickening. CARDIAC: No cardiomegaly or cardiac silhouette abnormality. MEDIASTINUM: No visible mass or adenopathy. BONES: Old healed right rib fractures. OTHER: Negative. XR/XR chest 1V IMPRESSION: 1. Mild bibasilar infiltrates versus atelectasis; less than previously seen. Electronically authenticated by: YEHUDA VARGAS Date: 03/08/2024 05:26
[2024-03-08] MEDS: ALBUTEROL SULFATE 2.5 MG/3 ML VIAL NEB IH ×2 (04:36→10:16)
[2024-03-08 04:39] LABS: Basophils Percent Auto 0.1 % (0.2-2.0); Hematocrit 34.5 % (42.0-54.0); Hemoglobin 11.5 g/dL (14.0-18.0); Immature Granulocytes Abs Auto 0.06 10^3/uL (0.00-0.03); Immature Granulocytes Pct Auto 0.6 % (0.0-0.5); Lymphocytes Absolute Auto 0.4 10^3/uL (1.2-3.8); Lymphocytes Percent Auto 3.6 % (20.5-60.0); Mean Corpuscular HGB Conc 33.3 g/dL (29.9-35.2); Mean Corpuscular Hemoglobin 32.6 pg (25.9-34.0); Mean Corpuscular Volume 97.7 fL (80.0-94.0); Mean Platelet Volume 10.1 fL (9.5-13.5); Monocytes Absolute Auto 0.4 10^3/uL (0.3-0.8); Monocytes Percent Auto 4.2 % (1.7-12.0); Neutrophils Absolute Auto 8.9 10^3/uL (1.4-6.5); Neutrophils Percent Auto 91.5 % (43.0-75.0); Platelet Count 198 10^3/uL (150-450); Red Blood Count 3.53 10^6/uL (4.70-6.10); Red Cell Distribution Width 14.4 % (11.0-15.0); White Blood Count 9.7 10^3/uL (4.0-11.0)
[2024-03-08 04:45] LABS: Alanine Aminotransferase 72 U/L (16-63); Albumin Globulin Ratio 0.8; Albumin Level 2.7 g/dL (3.4-5.0); Alkaline Phosphatase 57 U/L (46-116); Anion Gap 11.9; Aspartate Amino Transferase 36 U/L (15-37); BUN Creatinine Ratio 23.9; Bilirubin Total 0.3 mg/dL (0.2-1.0); Calcium 8.6 mg/dL (8.5-10.1); Carbon Dioxide 21.2 mmol/L (21.0-32.0); Chloride 111 mmol/L (98-107); Estimated GFR (African America >60 (>=60); Estimated GFR (Non-African Ame >60 (>=60); Globulin 3.3 g/dL; Glucose 120 mg/dL (74-106); Potassium 4.1 mmol/L (3.5-5.1); Sodium 140 mmol/L (136-145)
[2024-03-08] MEDS: 0.9 % SODIUM CHLORIDE 1,000 ML 125 ML IV (09:18)
[2024-03-08] MEDS: LISINOPRIL 5 MG TABLET PO (09:23)
[2024-03-08] MEDS: ASPIRIN 81 MG TAB.CHEW PO (09:23)
[2024-03-08] MEDS: ENOXAPARIN SODIUM 40 MG/0.4 ML SYRINGE SUBQ (09:25)
[2024-03-08] MEDS: METOPROLOL TARTRATE 50 MG TABLET PO (09:25)
[2024-03-08] MEDS: DEXAMETHASONE SOD PHOS 20 MG/5 ML VIAL 6 MG IV (09:28)
[2024-03-08] MEDS: GUAIFENESIN 600 MG TAB.ER.12H PO (10:11)
[2024-03-08] MEDS: BUDESONIDE 0.5 MG/2 ML AMPULE NEB IH (10:16)
--- NOTE | 2024-03-08 10:22 | PM.DS1 ---
DS: Providers Provider Date of admission: 03/06/24 23:02 Primary care physician: Abrahan Guerin MD Consults: 03/07/24 09:13 Occupational Therapy Eval and Treat Routine Reason for consultation: Weakness Has provider been notified: No Physical Therapy Eval and Treat Routine Reason for consultation: Weakness Has provider been notified: No 03/07/24 10:21 Consult to Pharmacy Routine Consulting Provider: Danae Jenkins Reason for consultation: If pt's home Breztri/Trelegy are not available, please substitute w/ nebs Has provider been notified: No Discharging clinician: Kylah Edwards DS: Diagnosis Discharge Diagnosis (1) Sepsis: Qualifiers: Sepsis acute organ dysfunction status: with acute organ dysfunction Sepsis type: sepsis due to unspecified organism Severe sepsis acute organ dysfunction type: encephalopathy Severe sepsis shock status: without septic shock Qualified Code(s): A41.9 - Sepsis, unspecified organism; R65.20 - Severe sepsis without septic shock; G93.41 - Metabolic encephalopathy (2) Pneumonia due to COVID-19 virus: (3) Lactic acidosis: (4) Hyperlipidemia: (5) Prostate cancer: (6) Rheumatoid arthritis: Qualifiers: Rheumatoid arthritis location: multiple sites Rheumatoid factor presence: with rheumatoid factor Qualified Code(s): M05.79 - Rheumatoid arthritis with rheumatoid factor of multiple sites without organ or systems involvement (7) Hypertension: Qualifiers: Hypertension type: primary hypertension Qualified Code(s): I10 - Essential (primary) hypertension (8) COPD (chronic obstructive pulmonary disease): DS: Summary Hospital Course Hospital Course: The patient was admitted with sepsis, lactic acidosis, and RLL pneumonia from COVID 19 w/ suspected secondary bacterial process. He was treated with IVFs, IV Levaquin and decadron, along with Remdesivir. He was hypoxic on admission, but was able to be weaned off O2 supplementation by the time of discharge. As he remained afebrile, with stable VS, and his dyspnea was improved, he was discharged home at his urgent request. He was in stable condition at the time of discharge. He was prescribed a further 10 day course of Levaquin, a medrol dosepak, and Paxlovid at the time of discharge. He should follow up with his PCP in 5-7 days. Time Spent with Patient Time attestation: Total time spent providing and/or coordinating discharge services: Time spent: greater than 30 minutes Specific discharge activities: Physical exam, discussion of discharge plan, questions answered. Exam Constitutional Vital Signs, click to edit/add: Last Vital Signs Temp 98.2 F 03/08/24 08:00 Pulse 84 03/08/24 10:00 Resp 18 03/08/24 09:45 BP 125/68 03/08/24 09:23 Pulse Ox 96 03/08/24 10:18 O2 Del Method Room Air 03/08/24 10:18 O2 Flow Rate 2 03/08/24 04:36 Common normals: no apparent distress, oriented x3 and alert General appearance: cooperative Orientation/consciousness: Yes awake HENMT Common normals: normocephalic and head/scalp atraumatic Eye Common normals: PERRL, EOMs intact bilaterally, conjunctivae normal and no scleral icterus Neck & C-Spine Common normals: no JVD Respiratory Common normals: normal respiratory effort and no use of accessory muscles Effort & inspection: able to speak in complete sentences and symmetric chest movement Auscultation: rales (Faint, BLL R>L) and diminished lung sounds (BLL) Cardio Common normals: no JVD, regular rate, regular rhythm, S1 normal heart sound, S2 normal heart sound, no murmurs and peripheral pulses 2+ throughout GI Common normals: Normal to inspection, nondistended, normoactive bowel sounds present, soft to palpation and non-tender Bladder/kidney exam: bladder normal to palpation Extremity Common normals: normal to inspection, full ROM, normal capillary refill and no pedal edema General: no clubbing and no cyanosis Neuro Common normals: moves all extremities, no focal motor deficits and no sensory deficits noted Speech: speech normal Psych Common normals: mental status grossly normal and activity/motor behavior normal DS: Data Data Completed and Pending Labs on day of discharge: Labs from last 24 hours 03/08/24 03/07/24 03/07/24 04:00 10:08 03:23 WBC 9.7 RBC 3.53 L Hgb 11.5 L Hct 34.5 L MCV 97.7 H MCH 32.6 MCHC 33.3 RDW 14.4 Plt Count 198 MPV 10.1 Neut % (Auto) 91.5 H Lymph % (Auto) 3.6 L Atlantic % (Auto) 4.2 Eos % (Auto) 0.0 L Baso % (Auto) 0.1 L Neut # (Auto) 8.9 H Lymph # (Auto) 0.4 L Atlantic # (Auto) 0.4 Eos # (Auto) 0.0 Baso # (Auto) 0.0 Abs Immat Gran (auto) 0.06 H Imm/Tot Granulo (auto) 0.6 H PT INR APTT Sodium 140 Potassium 4.1 Chloride 111 H Carbon Dioxide 21.2 Anion Gap 11.9 BUN 22.0 H Creatinine 0.92 Est GFR ( Amer) >60 Est GFR (Non-Af Amer) >60 BUN/Creatinine Ratio 23.9 Glucose 120 H Lactate 1.0 Calcium 8.6 Total Bilirubin 0.3 AST 36 ALT 72 H Alkaline Phosphatase 57 Total Protein 6.0 L Albumin 2.7 L Globulin 3.3 Albumin/Globulin Ratio 0.8 C. difficile Toxin PCR Negative 03/06/24 18:45 WBC RBC Hgb Hct MCV MCH MCHC RDW Plt Count MPV Neut % (Auto) Lymph % (Auto) Atlantic % (Auto) Eos % (Auto) Baso % (Auto) Neut # (Auto) Lymph # (Auto) Atlantic # (Auto) Eos # (Auto) Baso # (Auto) Abs Immat Gran (auto) Imm/Tot Granulo (auto) PT 10.7 INR 1.01 APTT 26.5 Sodium Potassium Chloride Carbon Dioxide Anion Gap BUN Creatinine Est GFR ( Amer) Est GFR (Non-Af Amer) BUN/Creatinine Ratio Glucose Lactate Calcium Total Bilirubin AST ALT Alkaline Phosphatase Total Protein Albumin Globulin Albumin/Globulin Ratio C. difficile Toxin PCR Imaging Chest x-ray: Attestation: I have reviewed the pertinent imaging results. Radiologist's impression: 03/06/24 IMPRESSION: Mild patchy opacification of the right base. Differential includes atelectasis, aspiration, and pneumonia. Recommend follow-up radiograph in 4-6 weeks, allowing sufficient time after appropriate therapy to evaluate for radiographic improvement/resolution. 03/08/24 IMPRESSION: 1. Mild bibasilar infiltrates versus atelectasis; less than previously seen. Discharge Plan Discharge Disposition: Home, Self-Care Discharge Medications: New methylprednisolone [Medrol (Eddi)] 4 mg tablets,dose pack See Rx Instructions .ROUTE .COMPLEX Qty: 21 0RF Rx Instructions: Take as directed per package instructions levofloxacin 750 mg tablet 750 mg PO DAILY 10 Days Qty: 10 0RF Paxlovid 300 mg (150 mg x 2)-100 mg tablets,dose pack See Rx Instructions .ROUTE .COMPLEX Qty: 30 0RF Rx Instructions: take TWO 150 mg tablets of nirmatrelvir with ONE 100 mg tablet of ritonavir twice daily for 5 days Continued albuterol sulfate 2.5 mg /3 mL (0.083 %) solution for nebulization 2.5 mg inhalation Q6H PRN (Reason: shortness of breath or wheezing) bicalutamide 50 mg tablet 50 mg PO DAILY atorvastatin [Lipitor] 10 mg tablet 10 mg PO QPM lisinopril 5 mg tablet 5 mg PO DAILY 30 Days Qty: 30 0RF aspirin 81 mg capsule 81 mg PO DAILY 30 Days Qty: 30 0RF methotrexate sodium 2.5 mg tablet 10 mg PO .WEEKLY Breztri Aerosphere 160-9-4.8 mcg/actuation HFA aerosol inhaler 2 inh INHALATION BID Activity: resume usual activities as tolerated Diet: advance to your usual diet Print Language: Bur[place]ian Patient Instructions: Methylprednisolone (By mouth), Levofloxacin (By mouth), Nirmatrelvir/Ritonavir (By mouth) (Paxlovid), COPD (Chronic Obstructive Pulmonary Disease) (ED), Pneumonia (ED) Forms: Portal Instructions Follow Up Appointments: March 15 @ 11:45am with Dr. Guerin [phone] Discharge Date/Time: 03/08/24 11:52
--- NOTE | 2024-03-08 10:27 | CM.NOTE ---
Rounds made with Dr. Lemus. Plan for discharge today. Mr. Naidu in agreement.
--- NOTE | 2024-03-09 15:00 | CM.DCFOLLOWU ---
03/09 1st attempt. No answer
--- NOTE | 2024-03-10 12:40 | CM.DCFOLLOWU ---
03/10- 2nd attempt. No answer
--- NOTE | 2024-03-14 14:50 | CM.DCFOLLOWU ---
03/14- 3rd attempt. No answer
== END 2024-03-08 11:52 | disposition home or self-care (01) | DRG 871 ==
LOC: ER 20:00 → MS 03-07 05:32
PROVIDERS: Emergency Medicine; Nurse Practitioner Acute Care; Admitting Provider Family Medicine; Emergency Provider Internal Medicine; PCP Family Medicine; Visit Provider Nurse Practitioner
DX: A41.89 Other specified sepsis (principal); G93.41 Metabolic encephalopathy; J12.82 Pneumonia due to coronavirus disease 2019; U07.1 COVID-19; J15.9 Unspecified bacterial pneumonia; J44.0 Chronic obstructive pulmonary disease with (acute) lower respiratory infection; N17.9 Acute kidney failure, unspecified; J96.11 Chronic respiratory failure with hypoxia; E87.20 Acidosis, unspecified; Z79.899 Other long term (current) drug therapy; M06.9 Rheumatoid arthritis, unspecified; I10 Essential (primary) hypertension; H91.90 Unspecified hearing loss, unspecified ear; Z87.891 Personal history of nicotine dependence; E78.5 Hyperlipidemia, unspecified; I16.0 Hypertensive urgency; R73.9 Hyperglycemia, unspecified; C61 Malignant neoplasm of prostate; R65.20 Severe sepsis without septic shock
CPT/HCPCS: 36415; 36416; 71045; 80048; 80053; 82948; 83605; 84145; 84484; 85025; 85610; 85730; 87040; 87070; 87493; 87804; 87811; 93005; 94640; 94667; 94668; 94761; 96365; 96366; 96367; 96375; 96376; 97161; 99285; G0328; J0248